=== PATIENT | male | born 1945 | race Caucasian/White ===

== ENCOUNTER 2017-06-20 07:24 | Emergency (ER) | payer MEDICARE, MEDICAID, SELFPAY ==
[2017-06-20] VITALS (11 sets, daily range): BP systolic 131–182; BP diastolic 86–116; PULSE 72–97; RESP 15–18; TEMP 36.4; O2SAT 93–98; BMI 20.5
--- NOTE | 2017-06-20 07:39 | EKG12_ITS ---
Test Reason : ETOH Blood Pressure : / mmHG Vent. Rate : 066 BPM Atrial Rate : 066 BPM P-R Int : 190 ms QRS Dur : 078 ms QT Int : 410 ms P-R-T Axes : 050 -25 051 degrees QTc Int : 429 ms Normal sinus rhythm Inferior infarct , age undetermined Abnormal ECG Confirmed by CAROLANN SPRINGER, GRACY ([id number]), department editor KARINE KABA ([id number] on 06/23/2017 3:51:22 PM Referred By: LOLA Confirmed By:GRACY VUONG MD
[2017-06-20 08:13] LABS: Absolute Lymphocyte Count 3.09 X10^3/ul (0.83-4.51); Absolute Neutrophil Count 4.1 X10^3/uL (2.0-7.7); Basophil# 0.08 X10^3/uL; Eosinophil# 0.27 X10^3/uL; Eosinophils% 3.3 % (0-5); Hematocrit 42.3 % (40-54); Hemoglobin 14.6 g/dl (13.0-16.5); Lymphocyte # 3.09 X10^3/ul (4.0); Lymphocyte % 38.1 % (19-41); Mean Corp Hgb Conc 34.5 g/gl (32-36); Mean Corpuscular Hgb 31.7 pg (27.0-32.0); Mean Platelet Vol. 9.8 fl (6.2-12.0); Monocyte# 0.56 X10^3/uL; Monocyte% 6.9 % (0-10); Neutrophil # 4.09 X10^3/uL (2.7-7.7); Neutrophil % 50.5 % (47-70); POSITIVE COUNT NO; POSITIVE DIFFERENTIAL NO; POSITIVE MORPHOLOGY NO; Platelet Count 338 K/mm3 (150-450); RBC Distribution Width CV 14.2 % (11.6-14.6); RBC Distribution Width SD 46.4 fl (35.1-43.9); White Blood Count 8.1 K/mm3 (4.4-11.0)
[2017-06-20 08:26] LABS: Anion Gap 11 (5-15); BUN 3 mg/dL (7-18); BUN/Creat Ratio 3.1 RATIO (10-20); Calcium,Total 8.6 mg/dL (8.5-10.1); Chloride 109 mmol/L (98-107); Creatinine, Serum 0.96 mg/dL (0.70-1.30); EST Glomerular Filtration Rate 81 mL/min (>60); Est Glom Filt Rate - Afr Amer 99 mL/min (>60); Glucose 89 mg/dL (74-106); Potassium 3.2 mmol/L (3.5-5.1); Sodium Level 145 mmol/L (136-145)
[2017-06-20 09:38] LABS: Amphetamine Urine VISTA NEGATIVE (<1000 ng/mL); Barbiturate Urine VISTA NEGATIVE (< 200 ng/mL); Benzodiazepine Urine VISTA NEGATIVE (< 200 ng/mL); Cocaine Urine VISTA NEGATIVE (< 300 ng/mL); Ecstacy Urine VISTA NEGATIVE (< 500 ng/mL); Methadone Urine VISTA NEGATIVE (< 300 ng/mL); PCP Urine VISTA NEGATIVE (< 25 ng/mL); THC Urine VISTA NEGATIVE (< 50 ng/mL); Vista UDS pH Range 6
--- NOTE | 2017-06-20 10:18 | ED.RN ---
CALLED FOR MEAL TRAY
--- NOTE | 2017-06-20 12:35 | ED.RN ---
PT PRESSED CALL LIGHT. THIS RN ENTERED ROOM TO FIND PT SITTING ON FLOOR, INCONTINENT OF STOOL. PT STATES HE HAD TO GO TO THE BATHROOM, STOOD UP TO WALK AND FELL. DENIES INJURY OR HITTING HEAD. DR. DAVILA AWARE. PT CLEANED, LINENS CHANGED AND BED CLEANED. PT PLACED IN CLEAN GOWN. ASSISTED PT BACK TO BED. VSS.
[2017-06-20] MEDS: clonazePAM 1 MG Tablet PO (13:29)
--- NOTE | 2017-06-20 15:17 | ED.RN ---
[facility] ANSWERING SERVICE CONTACTED
--- NOTE | 2017-06-20 16:08 | ED.VISSUMM ---
- ER Visit Summary Date of Service: 06/20/17 Chief Complaint: [Alcohol intoxication] History of Present Illness: The patient is a 71 M [presents to the emergency department via EMS. Patient had his neighbor call squad for him. Patient states that he been drinking [employer] hard lemonade and thinks he drank about 3 of them. Patient states that he is sick of living. Patient states that he is bored and has no life. Patient also states that his sister last week of brain tumors. When asked if he is suicidal patient states that because of his congregation he does not think that he would kill himself. Patient denies recent illness. Patient has prior documented history of COPD, hypertension, seizure disorder, Warneke's encephalopathy, and alcohol abuse.] Physical Examination: [HEENT-PERRLA, EOMI. Cranial nerves II through XII grossly intact. TMs clear. Mucous membranes moist. No adenopathy. Atraumatic Cardiovascular-regular rate and rhythm without murmur or ectopy Lungs-clear to auscultation, chest wall stable without crepitus or subcu emphysema Abdomen-normoactive bowel sounds, soft, nontender, no rebound or rigidity, no peritoneal signs. Extremities-intact ?4, normal range of motion, normal pulses, atraumatic] Test Results: [CBC with differential obtained was normal. Chemistries unremarkable. Alcohol was 263. Toxicology screen was negative. Troponin was less than 0.02. EKG obtained showed sinus rhythm with a rate of 66 bpm with no acute ST segment changes.] Emergency Department Course and Treatment: [Patient received IV fluids. Patient received a meal tray. Patient received the dose of his Zestoretic and a dose of his Klonopin.] Treatment Plan: [To be evaluated by crisis once alcohol has normalized under 100 mg/dL] Disposition: [Pending evaluation by crisis] Impression: [Alcohol intoxication Hypertension Depression] This note was generated with WebK[employer] dictation software. It may contain incorrect words, spelling, and punctuation that were not noted in review of the chart prior to signing ED Disposition - Plan for ED Patient: Chief Complaint: ETOH Intox Referrals: Care Physician,No Primary [Primary Care Provider] -
--- NOTE | 2017-06-20 16:11 | ED.DCSUM_ITS ---
- ER Visit Summary Date of Service: 06/20/17 Chief Complaint: [Alcohol intoxication] History of Present Illness: The patient is a 71 M [presents to the emergency department via EMS. Patient had his neighbor call squad for him. Patient states that he been drinking [employer] hard lemonade and thinks he drank about 3 of them. Patient states that he is sick of living. Patient states that he is bored and has no life. Patient also states that his sister last week of brain tumors. When asked if he is suicidal patient states that because of his yarsanism he does not think that he would kill himself. Patient denies recent illness. Patient has prior documented history of COPD, hypertension, seizure disorder, Warneke's encephalopathy, and alcohol abuse.] Physical Examination: [HEENT-PERRLA, EOMI. Cranial nerves II through XII grossly intact. TMs clear. Mucous membranes moist. No adenopathy. Atraumatic Cardiovascular-regular rate and rhythm without murmur or ectopy Lungs-clear to auscultation, chest wall stable without crepitus or subcu emphysema Abdomen-normoactive bowel sounds, soft, nontender, no rebound or rigidity, no peritoneal signs. Extremities-intact ?4, normal range of motion, normal pulses, atraumatic] Test Results: [CBC with differential obtained was normal. Chemistries unremarkable. Alcohol was 263. Toxicology screen was negative. Troponin was less than 0.02. EKG obtained showed sinus rhythm with a rate of 66 bpm with no acute ST segment changes.] Emergency Department Course and Treatment: [Patient received IV fluids. Patient received a meal tray. Patient received the dose of his Zestoretic and a dose of his Klonopin.] Treatment Plan: [To be evaluated by crisis once alcohol has normalized under 100 mg/dL] Disposition: [Pending evaluation by crisis] Impression: [Alcohol intoxication Hypertension Depression] This note was generated with [employer] dictation software. It may contain incorrect words, spelling, and punctuation that were not noted in review of the chart prior to signing ED Disposition - Plan for ED Patient: Chief Complaint: ETOH Intox Referrals: Care Physician,No Primary [Primary Care Provider] -
--- NOTE | 2017-06-20 16:12 | ED.DEP ---
ED Disposition - Plan for ED Patient: Chief Complaint: ETOH Intox Instructions: ED Alcohol Intoxication, ED Depression, ED HTN Established Prescriptions: Lisinopril/Hydrochlorothiazide [Zestoretic 10/12.5 Tablet] 1 tab PO DAILY #30 tab Referrals: Care Physician,No Primary [Primary Care Provider] - David Padron MD [STAFF PHYSICIAN] - 3-5 Days
[2017-06-20] MEDS: HYDROCHLOROTHIAZIDE 12.5 MG CAPSULE PO (16:32)
[2017-06-20] MEDS: Lisinopril 10 MG Tablet PO (16:32)
--- NOTE | 2017-06-20 17:09 | ED.RN ---
REVIEWED D/C INSTRUCTIONS, FOLLOW UP CARE, AND S/S THAT WOULD WARRANT A RETURN TO THE ED WITH PT. PT VERBALIZED AN UNDERSTANDING AND DENIES FURTHER QUESTIONS FOR THIS RN. PT SKIN P/W/D, RESP EVEN AND UNLABORED, PT A&O X 3, NO DISTRESS NOTED. CAB CALLED FOR PT. PT AMBULATED OUT OF ED, GAIT STEADY.
== END 2017-06-20 17:14 | disposition home or self-care (01) ==
LOC: ED 08:12
PROVIDERS: Emergency Provider Emergency Medicine
DX: F10.129 Alcohol abuse with intoxication, unspecified (principal); Y90.8 Blood alcohol level of 240 mg/100 ml or more; I10 Essential (primary) hypertension; F32.9 Major depressive disorder, single episode, unspecified; J44.9 Chronic obstructive pulmonary disease, unspecified; G40.909 Epilepsy, unspecified, not intractable, without status epilepticus; Z79.899 Other long term (current) drug therapy
CPT/HCPCS: 80048; 80307; 80320; 84484; 85025; 93005; 99285; G0480

== ENCOUNTER 2017-06-22 18:01 | Inpatient (IN) | payer MEDICARE, MEDICAID, SELFPAY ==
[2017-06-22] VITALS (8 sets, daily range): BP systolic 68–119; BP diastolic 50–76; PULSE 62–85; RESP 13–19; TEMP 36.4–36.6; O2SAT 91–99; BMI 25.0
[2017-06-22 20:02] LABS: Bedside Glucose 160 mg/dL (70-110)
--- NOTE | 2017-06-22 20:06 | ED.RN ---
PATIENTS BLOOD PRESSURE HYPOTENSIVE. DR. BENITO MADE AWARE. VERBAL ORDER GIVEN FOR 1 LITER WIDE OPEN
--- NOTE | 2017-06-22 20:11 | RAD_ITS ---
STUDY: X-RAY CHEST REASON FOR EXAM: Male, 71 years old. Shortness of breath and hypotension TECHNIQUE: Single frontal view of the chest. COMPARISON: February 26, 2017 FINDINGS: Side plate and screws transfix the left clavicle. There is a new right lower lobe infiltrate. The left lung is clear. There is no demonstrated pleural abnormality. Normal size heart. Normal mediastinum and gisselle. Normal visualized pulmonary arteries. Normal visualized aortic arch and descending thoracic aorta. Normal visualized thoracic spine. Normal visualized ribs, clavicles, and shoulders. There is no demonstrated abnormality of the visualized soft tissue structures of the upper abdomen. RAD/Chest 1 View (Portable) IMPRESSION: Right lower lobe infiltrate. Recommend follow-up to resolution. Electronically Signed: Daniel Santos MD at 20:57 EST , Service support ,
--- NOTE | 2017-06-22 20:11 | EKG12_ITS ---
Test Reason : Blood Pressure : / mmHG Vent. Rate : 062 BPM Atrial Rate : 062 BPM P-R Int : 172 ms QRS Dur : 076 ms QT Int : 442 ms P-R-T Axes : 066 021 053 degrees QTc Int : 448 ms Normal sinus rhythm Normal ECG Confirmed by CAROLANN SPRINGER, GRACY ([id number]), supervising editor trailer KARINE KABA ([id number]) on 06/23/2017 2:26:04 PM Referred By: Confirmed By:GRACY VUONG MD
[2017-06-22] MEDS: 0.9% Normal Saline 1,000 ML IV.SOLN. 1800 ML IV (20:22)
[2017-06-22 20:39] LABS: Absolute Neutrophil Count 4.9 X10^3/uL (2.0-7.7); Basophil# 0.03 X10^3/uL; Basophil% 0.4 % (0-1); Eosinophil# 0.25 X10^3/uL; Eosinophils% 2.9 % (0-5); Hematocrit 39.6 % (40-54); Mean Corp Hgb Conc 32.8 g/gl (32-36); Mean Corpuscular Hgb 31.1 pg (27.0-32.0); Mean Corpuscular Volume 94.7 fL (80-94); Mean Platelet Vol. 9.9 fl (6.2-12.0); Monocyte# 0.95 X10^3/uL; Monocyte% 11.1 % (0-10); Neutrophil # 4.92 X10^3/uL (2.7-7.7); Neutrophil % 57.5 % (47-70); Platelet Count 273 K/mm3 (150-450); RBC Distribution Width CV 14.9 % (11.6-14.6); RBC Distribution Width SD 51.1 fl (35.1-43.9); Red Blood Count 4.18 M/mm3 (4.6-6.2); White Blood Count 8.6 K/mm3 (4.4-11.0)
[2017-06-22 20:40] LABS: POSITIVE COUNT NO; POSITIVE DIFFERENTIAL NO; POSITIVE MORPHOLOGY NO
[2017-06-22 20:43] LABS: International Normalized Ratio 1.1; Prothrombin Time (Protime)PT. 14.4 SECONDS (11.7-14.9)
[2017-06-22 20:44] LABS: Partial Thromboplast Time 26.6 Seconds (24.1-36.2)
[2017-06-22 20:56] LABS: Alcohol, Blood (Medical)-Serum < 3.0 mg/dL
[2017-06-22 21:01] LABS: ALB/GLOB Ratio 1.1 RATIO (0.9-2.4); AST(SGOT) 51 U/L (15-37); Alanine Aminotransfer ALT/SGPT 45 U/L (16-61); Albumin, Serum 3.4 g/dL (3.2-5.0); Alkaline Phosphatase 69 U/L (45-117); Anion Gap 7 (5-15); BUN 8 mg/dL (7-18); BUN/Creat Ratio 5.3 RATIO (10-20); Calcium,Total 9.3 mg/dL (8.5-10.1); Chloride 98 mmol/L (98-107); Creatinine, Serum 1.51 mg/dL (0.70-1.30); EST Glomerular Filtration Rate 49 mL/min (>60); Est Glom Filt Rate - Afr Amer 59 mL/min (>60); Estimated Creatinine Clearance 39.03 ml/min; Globulin 3.1 g/dL (2.2-4.2); Glucose 124 mg/dL (74-106); Protein, Total 6.5 g/dL (6.4-8.2); Sodium Level 140 mmol/L (136-145)
[2017-06-22 21:56] LABS: Bacteria 0 SEEN /hpf (None Seen); Mucous, Urine 0 SEEN /hpf (<or=2+); Red Blood Cells-Urine 0 SEEN /hpf (0-5)
[2017-06-22 22:03] LABS: Color, Urine Yellow (Yellow); Glucose, Dipstick Normal (Normal); Ketone-Dipstick Negative (Negative); Leukocyte Esterase-Dipstick Negative /ul (Negative); Nitrite-Dipstick Negative (Negative); Occult Blood-Urine 25 /ul (Negative); Protein-Dipstick 15 mg/dl (Negative); Specific Gravity, Urine 1.005 (1.002-1.030); Urine Bilirubin Dipstick Negative (Negative); Urine Clarity Clear (Clear); Urine Urobilinogen Normal (Normal)
[2017-06-22 22:24] LABS: White Blood Cells 0-5 SEEN /hpf (0-5)
[2017-06-22 22:25] LABS: Squamous Epithelial Cells - UA 0-5 SEEN /hpf (0-5)
[2017-06-22 22:27] LABS: Amphetamine Urine VISTA NEGATIVE (<1000 ng/mL); Barbiturate Urine VISTA NEGATIVE (< 200 ng/mL); Benzodiazepine Urine VISTA NEGATIVE (< 200 ng/mL); Cocaine Urine VISTA NEGATIVE (< 300 ng/mL); Ecstacy Urine VISTA NEGATIVE (< 500 ng/mL); Methadone Urine VISTA NEGATIVE (< 300 ng/mL); PCP Urine VISTA NEGATIVE (< 25 ng/mL); THC Urine VISTA NEGATIVE (< 50 ng/mL); Vista UDS pH Range 6
--- NOTE | 2017-06-22 23:15 | HP.PCM_ITS ---
Problem List (1) Sepsis Status: Acute Qualifiers: Sepsis type: sepsis due to unspecified organism Qualified Code(s): A41.9 - Sepsis, unspecified organism (2) Pneumonia Status: Acute Qualifiers: Pneumonia type: due to unspecified organism Laterality: right Lung location: lower lobe of lung Qualified Code(s): J18.1 - Lobar pneumonia, unspecified organism (3) Chronic obstructive pulmonary disease (COPD) Status: Chronic Qualifiers: (4) Generalized weakness Status: Chronic (5) Essential hypertension Status: Chronic (6) Wernicke encephalopathy Status: Chronic (7) Alcohol abuse Status: Chronic (8) Seizure disorder Status: Chronic (9) Tobacco abuse Status: Chronic History of Present Illness Date of Admission: 06/22/17 Chief Complaint: confusion, shortness of breath The patient is a 71 year old male patient with a significant past medical history od alcohol abuse and Wernicke's encephalopathy presents to the ER by squad complaining of feeling as though he may have a seizure. The patient is a poor historian and he denies chest pain or nausea presently. He is hypotensive and requires supplemental oxygen to maintain his pulse oxygenation above 90%. The patient is hypotensive and has a lactate of 3.0. Chest X-ray reveals a right lower lobe pneumonia. There is concern that he may have aspirated due to his chronic alcoholism. After receiving a 30cc/KG bolus of normal saline the patients MAP is >65 and he is receiving IV antibiotics. His last alcohol consumption was two [employer] hard lemonades at noon today. Past Medical History Past Medical History (Chronic Problems): Chronic Problems Chronic obstructive pulmonary disease (COPD) (Chronic) Generalized weakness (Chronic) Essential hypertension (Chronic) Wernicke encephalopathy (Chronic) Alcohol abuse (Chronic) Seizure disorder (Chronic) Tobacco abuse (Chronic) Allergies bupropion HCl [From Wellbutrin] Allergy (Verified 06/22/17 18:59) Unknown quetiapine fumarate [From Seroquel] Allergy (Verified 06/22/17 18:59) Unknown trazodone Adverse Reaction (Verified 06/22/17 18:59) Other Home Medications: Ambulatory Orders Medication Instructions Recorded Fluoxetine HCl 40 mg PO DAILY 03/03/17 Pantoprazole Sodium [Protonix] 40 mg PO DAILY 03/03/17 Lisinopril/Hydrochlorothiazide 1 tablet PO DAILY 03/04/17 [Zestoretic 01/29.5 Tablet] Surgical History: - - Umbilical hernia repair, bowel resection secondary to small bowel obstruction, left shoulder surgery status post trauma, tonsillectomy , ileocecal resection via CT scan evaluation Psychiatric History: Anxiety Smoking Status: Current every day smoker - *Family History Maternal History Items: Cancer, Hypertension Paternal History Items: Cancer, Hypertension Review of Systems Constitutional: Reports: Chills, Malaise, Weakness. Denies: Fever, Weight Change HEENT: Denies: Head Aches, Sinus Congestion, Sinus Drainage Cardiovascular: Denies: Chest Pain, Palpitations Respiratory: Denies: Cough, Shortness of breath at rest, Sputum production Gastrointestinal: Denies: Abdominal Pain, Nausea, Vomiting Genitourinary: Denies: Dysuria Musculoskeletal: Denies: Joint Pain, Joint Tenderness Skin: Denies: Rash, Wounds Neurological: Denies: Numbness, Tingling, Focal weakness Psychiatric: Reports: Anxiety. Denies: Depression, Homicidal Ideations, Suicidal Ideations Hematologic/ Lymphatic: Denies: Easy Bruising, Easy Bleeding VTE Information - Inpt Only VTE Present on Admission: No VTE Mechan Device Prophylaxis: None VTE Pharm Prophylaxis ordered?: Yes Patient Problems: Active and Suspected Problems Sepsis (Acute) Pneumonia (Acute) - Physical Exam General: Alert, Cooperative, Confused HEENT: Atraumatic, PERRLA, EOMI, Normocephalic Neck: Supple Lungs: Clear to auscultation, Normal air movement, No rhonchi, No wheeze, No rales Cardiovascular: Regular rate, Regular Rhythm, Normal S1, Normal S2, No murmurs Abdomen: Bowel Sounds Present, Soft, Non Tender Extremities: No edema, Capillary Refill Less than 3 Seconds Skin: No rashes, No breakdown Musculoskeletal: No Tenderness to Palpation of Joints or Extremities Neurological: Neuro grossly intact Psych/Mental Status: Normal Affect, Appropriate, Anxious Vital Signs Temp Pulse Resp BP Pulse Ox 97.5 F L 77 18 108/69 97 06/22/17 21:47 06/22/17 23:00 06/22/17 23:00 06/22/17 23:00 06/22/17 23:00 Oxygen Flow Rate (L/min) 2 Oxygen Delivery Method Nasal Cannula Weight: 150 lb Body Mass Index (BMI) 25.0 Finger Stick Blood Glucose 160 Laboratory Tests Past 24 Hrs 06/22/17 06/22/17 06/22/17 20:00 20:00 20:00 WBC 8.6 RBC 4.18 L Hgb 13.0 Hct 39.6 L MCV 94.7 H MCH 31.1 MCHC 32.8 RDW 14.9 H RDW Differential 51.1 H Plt Count 273 MPV 9.9 Immature Gran % (Auto) 0.100 Neut % (Auto) 57.5 Lymph % (Auto) 28.0 Schley % (Auto) 11.1 H Eos % (Auto) 2.9 Baso % (Auto) 0.4 Absolute Neuts (auto) 4.9 Absolute Lymphs (auto) 2.40 Total Counted Not Reportable PT 14.4 INR 1.1 APTT 26.6 Sodium 140 Potassium 4.0 Chloride 98 Carbon Dioxide 35.0 H Anion Gap 7 BUN 8 Creatinine 1.51 H Estim Creat Clear Calc 39.03 Est GFR (MDRD) Af Amer 59 L Est GFR (MDRD) Non-Af 49 L BUN/Creatinine Ratio 5.3 L Glucose 124 H Lactic Acid Calcium 9.3 Total Bilirubin 0.70 AST 51 H ALT 45 Alkaline Phosphatase 69 Troponin I < 0.02 Total Protein 6.5 Albumin 3.4 Globulin 3.1 Albumin/Globulin Ratio 1.1 Urine Color Urine Clarity Urine pH Ur Specific R[place]y Urine Protein Urine Glucose (UA) Urine Ketones Urine Occult Blood Urine Nitrite Urine Bilirubin Urine Urobilinogen Ur Leukocyte Esterase Urine RBC Urine WBC Ur Squamous Epith Cells Urine Bacteria Urine Mucus Urine Opiates Screen Urine Methadone Screen Ur Barbiturates Screen Ur Phencyclidine Scrn Ur Amphetamines Screen U Methamphetamin-MDMA U Benzodiazepines Scrn Urine Cocaine Screen U Cannabinoids Screen Ur Drug Screen Comment Ethyl Alcohol 06/22/17 06/22/17 06/22/17 20:00 20:00 21:50 WBC RBC Hgb Hct MCV MCH MCHC RDW RDW Differential Plt Count MPV Immature Gran % (Auto) Neut % (Auto) Lymph % (Auto) Schley % (Auto) Eos % (Auto) Baso % (Auto) Absolute Neuts (auto) Absolute Lymphs (auto) Total Counted PT INR APTT Sodium Potassium Chloride Carbon Dioxide Anion Gap BUN Creatinine Estim Creat Clear Calc Est GFR (MDRD) Af Amer Est GFR (MDRD) Non-Af BUN/Creatinine Ratio Glucose Lactic Acid 3.0 H Calcium Total Bilirubin AST ALT Alkaline Phosphatase Troponin I Total Protein Albumin Globulin Albumin/Globulin Ratio Urine Color Urine Clarity Urine pH Ur Specific R[place]y Urine Protein Urine Glucose (UA) Urine Ketones Urine Occult Blood Urine Nitrite Urine Bilirubin Urine Urobilinogen Ur Leukocyte Esterase Urine RBC Urine WBC Ur Squamous Epith Cells Urine Bacteria Urine Mucus Urine Opiates Screen POSITIVE H Urine Methadone Screen NEGATIVE Ur Barbiturates Screen NEGATIVE Ur Phencyclidine Scrn NEGATIVE Ur Amphetamines Screen NEGATIVE U Methamphetamin-MDMA NEGATIVE U Benzodiazepines Scrn NEGATIVE Urine Cocaine Screen NEGATIVE U Cannabinoids Screen NEGATIVE Ur Drug Screen Comment Ethyl Alcohol < 3.0 06/22/17 21:50 WBC RBC Hgb Hct MCV MCH MCHC RDW RDW Differential Plt Count MPV Immature Gran % (Auto) Neut % (Auto) Lymph % (Auto) Schley % (Auto) Eos % (Auto) Baso % (Auto) Absolute Neuts (auto) Absolute Lymphs (auto) Total Counted PT INR APTT Sodium Potassium Chloride Carbon Dioxide Anion Gap BUN Creatinine Estim Creat Clear Calc Est GFR (MDRD) Af Amer Est GFR (MDRD) Non-Af BUN/Creatinine Ratio Glucose Lactic Acid Calcium Total Bilirubin AST ALT Alkaline Phosphatase Troponin I Total Protein Albumin Globulin Albumin/Globulin Ratio Urine Color Yellow Urine Clarity Clear Urine pH 7.0 Ur Specific R[place]y 1.005 Urine Protein 15 H Urine Glucose (UA) Normal Urine Ketones Negative Urine Occult Blood 25 H Urine Nitrite Negative Urine Bilirubin Negative Urine Urobilinogen Normal Ur Leukocyte Esterase Negative Urine RBC 0 SEEN Urine WBC 0-5 SEEN Ur Squamous Epith Cells 0-5 SEEN Urine Bacteria 0 SEEN Urine Mucus 0 SEEN Urine Opiates Screen Urine Methadone Screen Ur Barbiturates Screen Ur Phencyclidine Scrn Ur Amphetamines Screen U Methamphetamin-MDMA U Benzodiazepines Scrn Urine Cocaine Screen U Cannabinoids Screen Ur Drug Screen Comment Ethyl Alcohol POC Glucose 06/22/17 19:55 POC Glucose 160 H Assessment/Plan Active and Suspected Problems Sepsis (Acute) Pneumonia (Acute) Chronic Problems Chronic obstructive pulmonary disease (COPD) (Chronic) Essential hypertension (Chronic) Wernicke encephalopathy (Chronic) Alcohol abuse (Chronic) Seizure disorder (Chronic) Tobacco abuse (Chronic) Plan - admit to progressive care unit - continue levaquin and zosyn initiated in ER - CBC, BMP in am, repeat lactate per protocol - IV normal saline at 125cc/hour - CIWA protocol for alcohol cessation/withdrawal - LMWH for DVT prophylaxis - hold antihypertensive medications - LMWH for DVT prophylaxis Code Visit Inpatient E&M: 39220 Init Hosp L3
--- NOTE | 2017-06-22 23:18 | ED.VISSUMM ---
- ER Visit Summary Date of Service: 06/22/17 Chief Complaint: Anxiety History of Present Illness: The patient is a [address] Sorenson. Patient is a very poor informant. When I entered the room he is lethargic and his only complaint is that he is short of breath. I am unable to obtain an accurate history. Physical Examination: Vitals: 98.6, 101/76, 84, 14, 91% on room air which is not hypoxic. General: Well-developed, but cachectic. Head: Normocephalic atraumatic. Neck: Supple, no lymphadenopathy. No JVD. Nontender. Cardiovascular: Regular rate and rhythm. No murmurs. Respiratory: No respiratory distress. Clear to auscultation bilaterally. Abdominal: Soft, nontender, nondistended, normal bowel sounds. No guarding, rebound, or peritoneal signs. Back: Nontender. Extremities: Nontender, no edema. Skin: Normal color, no rash. Neurologic: Large neck. Arouses to voice. Moves all extremities well. Psych: Normal affect. Test Results: Chest x-ray shows a right lower lobe infiltrate. EKG is sinus 6-62 with no acute changes. Troponin is negative. Urinalysis is negative. LFTs marked for an AST of 51. Chem-7 marked for CO2 of 35, glucose 124, creatinine 1.51. CBC is marked for monocytes of 11. Blood alcohol level was negative. Tox screen shows opiates. Lactic acid is 3.0. Emergency Department Course and Treatment: Patient with a yeast given a 30 cc/kg bolus of normal saline in the emergency department. His sensorium has improved greatly. He is now awake, alert, and conversational. Due to his history of alcoholism he was given Zosyn rather than Rocephin IV. This is because of the potential for aspiration. He was also given Levaquin IV. Treatment Plan: The patient was discussed with Dr. Zamarripa. He will be admitted to the hospital for further evaluation and treatment. Disposition: Admitted in serious condition. Impression: 1. Septic shock. 2. Pneumonia, community-acquired. 3. Alcoholism. 4. Critical care time 30 minutes. This note was generated with blogTVation software. It may contain incorrect words, spelling, and punctuation that were not noted in review of the chart prior to signing ED Disposition - Plan for ED Patient: Chief Complaint: ETOH Intox Referrals: Care Physician,No Primary [Primary Care Provider] -
--- NOTE | 2017-06-22 23:21 | ED.DCSUM_ITS ---
- ER Visit Summary Date of Service: 06/22/17 Chief Complaint: Anxiety History of Present Illness: The patient is a [address] Sorenson. Patient is a very poor informant. When I entered the room he is lethargic and his only complaint is that he is short of breath. I am unable to obtain an accurate history. Physical Examination: Vitals: 98.6, 101/76, 84, 14, 91% on room air which is not hypoxic. General: Well-developed, but cachectic. Head: Normocephalic atraumatic. Neck: Supple, no lymphadenopathy. No JVD. Nontender. Cardiovascular: Regular rate and rhythm. No murmurs. Respiratory: No respiratory distress. Clear to auscultation bilaterally. Abdominal: Soft, nontender, nondistended, normal bowel sounds. No guarding, rebound, or peritoneal signs. Back: Nontender. Extremities: Nontender, no edema. Skin: Normal color, no rash. Neurologic: Large neck. Arouses to voice. Moves all extremities well. Psych: Normal affect. Test Results: Chest x-ray shows a right lower lobe infiltrate. EKG is sinus 6- 62 with no acute changes. Troponin is negative. Urinalysis is negative. LFTs marked for an AST of 51. Chem-7 marked for CO2 of 35, glucose 124, creatinine 1.51. CBC is marked for monocytes of 11. Blood alcohol level was negative. Tox screen shows opiates. Lactic acid is 3.0. Emergency Department Course and Treatment: Patient with a yeast given a 30 cc/ kg bolus of normal saline in the emergency department. His sensorium has improved greatly. He is now awake, alert, and conversational. Due to his history of alcoholism he was given Zosyn rather than Rocephin IV. This is because of the potential for aspiration. He was also given Levaquin IV. Treatment Plan: The patient was discussed with Dr. Zamarripa. He will be admitted to the hospital for further evaluation and treatment. Disposition: Admitted in serious condition. Impression: 1. Septic shock. 2. Pneumonia, community-acquired. 3. Alcoholism. 4. Critical care time 30 minutes. This note was generated with [employer] software. It may contain incorrect words, spelling, and punctuation that were not noted in review of the chart prior to signing ED Disposition - Plan for ED Patient: Chief Complaint: ETOH Intox Referrals: Care Physician,No Primary [Primary Care Provider] -
[2017-06-23] VITALS (14 sets, daily range): BP systolic 134–170; BP diastolic 79–94; PULSE 65–96; RESP 16; TEMP 36.5–37.2; O2SAT 92–95; BMI 20.3
[2017-06-23 00:26] LABS: Reflex Lactate? Y
[2017-06-23] MEDS: 0.9% Normal Saline 1,000 ML 125 ML IV ×3 (00:42→16:11)
[2017-06-23 01:28] LABS: Lactic Acid 1.6 mmol/L (0.4-2.0)
[2017-06-23] MEDS: LORazepam 1 MG Tablet 2 MG PO (02:47)
[2017-06-23 06:03] LABS: Hematocrit 36.7 % (40-54); Mean Corp Hgb Conc 32.7 g/gl (32-36); Mean Corpuscular Hgb 31.3 pg (27.0-32.0); Mean Corpuscular Volume 95.6 fL (80-94); Mean Platelet Vol. 9.9 fl (6.2-12.0); Platelet Count 235 K/mm3 (150-450); RBC Distribution Width CV 14.6 % (11.6-14.6); RBC Distribution Width SD 49.4 fl (35.1-43.9); Red Blood Count 3.84 M/mm3 (4.6-6.2); White Blood Count 9.2 K/mm3 (4.4-11.0)
[2017-06-23 06:07] LABS: Scan Indicated on CBC? Y/N NO
[2017-06-23] MEDS: Piperacil/Tazobactam 3.375 GM/50 ML ML IV ×3 (06:23→22:27)
[2017-06-23 06:28] LABS: Anion Gap 8 (5-15); BUN 12 mg/dL (7-18); BUN/Creat Ratio 9.8 RATIO (10-20); Calcium,Total 8.5 mg/dL (8.5-10.1); Chloride 105 mmol/L (98-107); Creatinine, Serum 1.22 mg/dL (0.70-1.30); EST Glomerular Filtration Rate 62 mL/min (>60); Est Glom Filt Rate - Afr Amer 75 mL/min (>60); Estimated Creatinine Clearance 46.27 ml/min; Glucose 101 mg/dL (74-106); Potassium 3.5 mmol/L (3.5-5.1); Sodium Level 143 mmol/L (136-145)
[2017-06-23] MEDS: Folic Acid 1 MG Tablet PO (10:23)
[2017-06-23] MEDS: Thiamine Hydrochloride 100 MG Tablet PO ×2 (10:23→16:12)
[2017-06-23] MEDS: FLUoxetine 20 MG Capsule 40 MG PO (10:23)
[2017-06-23] MEDS: Enoxaparin 40 MG/0.4 ML Syringe SC (10:23)
[2017-06-23] MEDS: Pantoprazole Sodium 40 MG Tablet PO (10:23)
--- NOTE | 2017-06-23 10:30 | PCM.PN.HOSP ---
Patient Problems: Active and Suspected Problems Sepsis (Acute) Pneumonia (Acute) Subjective: CC: Follow-up on acute mental status changes and pneumonia. This is a 71-year-old male who presented with acute encephalopathy and hypoxia and was found to have pneumonia, he has improved with antibiotic therapy. He reports no fever , chills or purulent cough today. Vitals/I&O's: Vital Signs Temp Pulse Resp BP Pulse Ox 97.8 F 68 16 148/84 H 93 06/23/17 09:55 06/23/17 09:55 06/23/17 09:55 06/23/17 09:55 06/23/17 09:55 Oxygen Delivery Method Room Air Weight: 58.9 kg Body Mass Index (BMI) 20.3 Intake and Output for Last 24 Hours 06/21/17 06/22/17 06/23/17 23:59 23:59 23:59 Intake Total 1048 / 1048 Output Total 250 / 250 Balance 798 / 798 General: Alert, Oriented x3 HEENT: Atraumatic Oral: Moist Mucosa Neck: Supple, No JVD Lungs: Clear to auscultation, No rales Cardiovascular: Regular rate, Normal S1, No murmurs Abdomen: Bowel Sounds Present, Soft, Non Tender Extremities: No edema Laboratory Results 06/23/17 00:51: Lactic Acid 1.6 06/23/17 05:50: WBC 9.2, RBC 3.84 L, Hgb 12.0 L, Hct 36.7 L, MCV 95.6 H, MCH 31.3, MCHC 32.7, RDW 14.6, RDW Differential 49.4 H, Plt Count 235, MPV 9.9 06/23/17 05:50: Sodium 143, Potassium 3.5, Chloride 105, Carbon Dioxide 30.0, Anion Gap 8, BUN 12, Creatinine 1.22, Estim Creat Clear Calc 46.27, Est GFR (MDRD) Af Amer 75, Est GFR (MDRD) Non-Af 62, BUN/Creatinine Ratio 9.8 L, Glucose 101, Calcium 8.5 Current Medications Enoxaparin Sodium (Lovenox) 40 mg SC DAILY@1000 [facility] Last Admin: 06/23/17 10:23 Dose: 40 mg Fluoxetine HCl (Prozac) 40 mg PO DAILY [facility] Last Admin: 06/23/17 10:23 Dose: 40 mg Folic Acid (Folic Acid) 1 mg PO DAILY@0800 [facility] Stop: 06/25/17 08:01 Last Admin: 06/23/17 10:23 Dose: 1 mg Sodium Chloride () 1,000 mls @ 125 mls/hr IV .Q8H [facility] Last Admin: 06/23/17 07:59 Dose: 125 mls/hr Levofloxacin (Levaquin) 750 mg in 150 mls @ 100 mls/hr IV Q48 [facility] Piperacillin Sod/Tazobactam Sod (Zosyn) 3.375 gm in 50 mls @ 12.5 mls/hr IV Q8 [facility] Last Admin: 06/23/17 06:23 Dose: 12.5 mls/hr Lorazepam (Ativan) 2 mg PO Q2H PRN PRN; Protocol PRN Reason: CIWA score > 8 but <15 Last Admin: 06/23/17 02:47 Dose: 2 mg Lorazepam (Ativan) 2 mg IV Q2H PRN PRN; Protocol PRN Reason: CIWA score > 8 but <15 Lorazepam (Ativan) 2 mg PO UD PRN; Protocol PRN Reason: CIWA score >/=15. Lorazepam (Ativan) 2 mg IV UD PRN; Protocol PRN Reason: CIWA score >/=15. Magnesium Hydroxide (Milk Of Magnesia) 30 ml PO DAILY PRN PRN Reason: Constipation Nutritional Formula (Lactose Free) (Ensure Enlive) 120 ml PO 4X/DAY [facility] Last Admin: 06/23/17 10:26 Dose: 120 ml Pantoprazole Sodium (Protonix) 40 mg PO DAILY [facility] Last Admin: 06/23/17 10:23 Dose: 40 mg Sodium Chloride () 5 - 30 ml IV UD PRN PRN Reason: SALINE FLUSH Thiamine HCl (Vitamin B1) 100 mg PO BIDCM [facility] Stop: 06/25/17 17:01 Last Admin: 06/23/17 10:23 Dose: 100 mg Assessment/Plan Active and Suspected Problems Sepsis (Acute) Pneumonia (Acute) 1. Sepsis due to pneumonia; he remains hemodynamically stable. 2. Acute encephalopathy due to #1 this has improved. 3. Right lobe pneumonia; continue on IV Levaquin and Zosyn for possible aspiration PNA. 4. Alcohol abuse (Chronic); continue on CIWA protocol 5. COPD without acute exacerbation; continue bronchodilators. 6. Seizure disorder by history; he is not on any AEDs 7. Essential hypertension; this is controlled. 8. DVT prophylaxis with Lovenox Code Visit Inpatient E&M: 65267 Subs Hosp L3
[2017-06-23] MEDS: Acetaminophen 325 MG Tablet 650 MG PO ×2 (13:11→22:34)
--- NOTE | 2017-06-23 14:12 | CASEMGMT ---
RAMY CIFUENTES Face to Face with patient for initial transition planning/care coordination assessment. RN ESAU introduced self and role at [facility]. Patient lying in bed, alert and oriented. Patient willing to participate in assessment and is able to answer all questions appropriately. Care providers, pharmacy, and demographics verified. See link attached. Patient wishes to discharge home and would like HHC to follow him. HHC and CCN has been setup in past but patient declines care after setup. Patient states he has no further needs or concerns at this time. CM to follow for discharge planning needs that may arise. Disposition Plan: Patient to discharge home with possible HHC, family support, and follow up plans in place.
--- NOTE | 2017-06-23 14:35 | CASEMGMT ---
Per Cynthia MCCANN CM, they have attempted to set pt up with CCN in the past but pt would not answer phone. Referral made again so that CCN can try and see pt while here and maybe pt will accept assistance. Call to Jaskaran at [facility] and she states she will try and stop to see pt in the am. Sonia MCCANN CM
[2017-06-24] VITALS (8 sets, daily range): BP systolic 148–176; BP diastolic 89–99; PULSE 69–87; RESP 14–16; TEMP 36.8–37.1; O2SAT 94–95
[2017-06-24] MEDS: 0.9% Normal Saline 1,000 ML 125 ML IV ×2 (00:14→08:26)
[2017-06-24] MEDS: Piperacil/Tazobactam 3.375 GM/50 ML ML IV (05:03)
[2017-06-24] MEDS: Folic Acid 1 MG Tablet PO (08:28)
[2017-06-24] MEDS: Thiamine Hydrochloride 100 MG Tablet PO (08:28)
[2017-06-24] MEDS: Acetaminophen 325 MG Tablet 650 MG PO (09:49)
[2017-06-24] MEDS: FLUoxetine 20 MG Capsule 40 MG PO (09:50)
[2017-06-24] MEDS: Enoxaparin 40 MG/0.4 ML Syringe SC (09:50)
[2017-06-24] MEDS: Pantoprazole Sodium 40 MG Tablet PO (09:50)
--- NOTE | 2017-06-24 11:55 | PCM.DC.SUM ---
Discharge Date and Diagnosis Date of Admission: 06/22/17 Date of Discharge: 06/24/17 - Primary Discharge Diagnosis Active and Suspected Problems Sepsis (Acute) Pneumonia (Acute) - Secondary Discharge Diagnosis Chronic Problems Chronic obstructive pulmonary disease (COPD) (Chronic) Generalized weakness (Chronic) Essential hypertension (Chronic) Wernicke encephalopathy (Chronic) Alcohol abuse (Chronic) Seizure disorder (Chronic) Tobacco abuse (Chronic) Hospital Course and Treatment Operations: None Summary of Care Provided: This is a 71-year-old male who presented with acute encephalopathy and hypoxia and was found to have pneumonia, started on broad-spectrum antibiotics and admitted to PCU. The patient improved clinically and was transitioned to oral antibiotics i.e. Omnicef 300 mg twice daily to complete 7-8 days of antibiotic therapy. 1. Sepsis due to pneumonia; has resolved, he remains hemodynamically stable. 2. Acute encephalopathy due to #1 this has improved. 3. Right lobe pneumonia; was treated with IV Levaquin and Zosyn and transitioned to Omnicef at discharge. 4. Alcohol abuse (Chronic); recommended to quit drinking. 5. COPD without acute exacerbation; continue bronchodilators. 6. Seizure disorder by history; this was just one time related to alcohol withdrawal, he is not on any AEDs 7. Essential hypertension; this is controlled Exam at the time of discharge; vital signs were stable. He was alert and oriented to time place and person. He did not appear to be any form of distress. S1 and S2 heard no murmur or gallop Lung exam was clear to auscultation with no adventitious sounds. Abdomen was soft nontender with normal bowel sounds. extremity exam did not reveal any edema, palpable pulses bilaterally. Neurologic exam was grossly intact. Discharge Diet: No Restrictions Home Medications: Medications to take at Discharge Fluoxetine HCl 40 mg PO DAILY 03/03/17 Pantoprazole Sodium [Protonix] 40 mg PO DAILY 03/03/17 Lisinopril/Hydrochlorothiazide [Zestoretic 10/12.5 Tablet] 1 tablet PO DAILY 03/04/17 Cefdinir 300 mg PO BID #10 cap 06/24/17 Following Prescrptions Were Given to Patient: Cefdinir 300 mg PO BID #10 cap Primary Care Physician: Care Physician,No Primary [Primary Care Provider] - Disposition: Home Patient Condition:: Good Meaningful Use Info Meaningful Use Diagnoses (Choose all that apply): None applicable Code Visit Inpatient E&M: 47424 Disch Hosp
--- NOTE | 2017-06-24 11:57 | PCM.DC ---
- Discharge Diagnoses Current Active Problems: Current Active and Chronic Problems Sepsis (Acute) Pneumonia (Acute) You will use the following diet at home:: Regular Discharge Activity: Return to Normal Activity Allergies/Adverse Reactions: Allergies bupropion HCl [From Wellbutrin] Allergy (Verified 06/22/17 18:59) Unknown quetiapine fumarate [From Seroquel] Allergy (Verified 06/22/17 18:59) Unknown trazodone Adverse Reaction (Verified 06/22/17 18:59) Other Medications to take at Discharge Fluoxetine HCl 40 mg PO DAILY 03/03/17 Pantoprazole Sodium [Protonix] 40 mg PO DAILY 03/03/17 Lisinopril/Hydrochlorothiazide [Zestoretic 10/12.5 Tablet] 1 tablet PO DAILY 03/04/17 Cefdinir 300 mg PO BID #10 cap 06/24/17 The following prescriptions were given: Cefdinir 300 mg PO BID #10 cap Primary Care Physician: Care Physician,No Primary [Primary Care Provider] -
--- NOTE | 2017-06-24 14:02 | CASEMGMT ---
This RN CM to room to speak with pt regarding CCN and pt is agreeable at this time and states 'I need something like that to help me keep track of my meds.' Pt given Jaskaran, CCN's cell number, per Jaskaran's request so that pt knows who is calling. Pt placed number in wallet and this RN CM encouraged him to answer when Jaskaran calls, pt voices understanding. SStjim MCCANN CM
--- NOTE | 2017-06-26 10:18 | CCN.REFER ---
PHONE NUMBER CURRENTLY DISCONNECTED. VISIT TO HOME AND NO ANSWER AT DOOR. WILL CONTINUE TO ATTEMPT TO REACH PATIENT. ONUR S MADE AWARE VIA EMAIL. THIS IS [facility]'S THIRD TIME TRYING TO REACH OUT TO PATIENT TO ENTER CCN PROGRAM
== END 2017-06-24 14:18 | disposition home or self-care (01) | DRG 871 ==
LOC: ED 20:12 → ICU 23:23 → PCU 23:35
PROVIDERS: Admitting Provider Family Medicine; Emergency Provider Emergency Medicine; Visit Provider Internal Medicine
DX: A41.9 Sepsis, unspecified organism (principal); J18.9 Pneumonia, unspecified organism; G93.40 Encephalopathy, unspecified; J44.0 Chronic obstructive pulmonary disease with (acute) lower respiratory infection; F17.200 Nicotine dependence, unspecified, uncomplicated; F10.10 Alcohol abuse, uncomplicated; I10 Essential (primary) hypertension; R09.02 Hypoxemia
CPT/HCPCS: 36415; 71045; 80048; 80053; 80307; 80320; 81001; 82962; 83605; 84484; 85025; 85027; 85610; 85730; 87040; 87086; 87088; 87880; 93005; 94762; 99285; J7030; A4216; G0480

== ENCOUNTER 2017-06-29 10:16 | Emergency (ER) | payer MEDICARE, MEDICAID, SELFPAY ==
[2017-06-29 10:18] VITALS: BP 172/96; PULSE 110; RESP 16; TEMP 36.4; O2SAT 98; BMI 19.6
--- NOTE | 2017-06-29 10:22 | RAD_ITS ---
STUDY: X-RAY CHEST REASON FOR EXAM: Male, 71 years old. Follow-up of pneumonia. TECHNIQUE: AP and lateral views of the chest. COMPARISON: June 22, 2017. FINDINGS: Cardiac monitoring leads are present. There is hyperinflation of the lungs consistent with chronic obstructive lung disease (COPD). There is mild prominence of bronchovascular markings particularly at the right lung base. There is improved aeration of right lung base since the previous study. There is no demonstrated pleural abnormality. There is borderline cardiomegaly. Normal mediastinum and gisselle. Normal visualized pulmonary arteries. There is atherosclerotic calcification of the aortic arch with tortuosity. There is demineralization of the osseous structures. There appear to be a compression fractures of multiple thoracic vertebral bodies. Patient has had open reduction internal fixation of a left clavicle fracture with 2 plates and multiple screws. There is no demonstrated abnormality of the visualized soft tissue structures of the upper abdomen. RAD/Chest PA and Lateral IMPRESSION: 1. Improved aeration of the right lung base since the previous study. 2. COPD. 3. Osteoporosis with multiple compression fractures. Electronically Signed: Madeline Padron MD at 11:51 EDT , Service support ,
--- NOTE | 2017-06-29 10:22 | EKG12_ITS ---
Test Reason : Blood Pressure : / mmHG Vent. Rate : 102 BPM Atrial Rate : 138 BPM P-R Int : 180 ms QRS Dur : 080 ms QT Int : 374 ms P-R-T Axes : 056 -47 041 degrees QTc Int : 487 ms Sinus tachycardia Left anterior fascicular block Inferior infarct , age undetermined Abnormal ECG Confirmed by CAROLANN SPRINGER, GRACY ([id number]), visual effects editor KARINE KABA ([id number]) on 07/01/2017 3:18:46 PM Referred By: VICTOR HUGO Confirmed By:GRACY VUONG MD
--- NOTE | 2017-06-29 10:28 | ED.VISSUMM ---
- ER Visit Summary Date of Service: 06/29/17 Chief Complaint: Bilateral hand numbness History of Present Illness: The patient is a 71 M with no primary care physician. He was discharged from the hospital 5 days ago for pneumonia. He had been placed on cefdinir. The patient told the nurse that he has bilateral hand numbness that began today. He is clearly intoxicated and will not speak with me. When I asked him why he came in today he reports you know why I am here. He will not answer any questions. Physical Examination: Vitals: 97.6, 170/96, 110, 16, 98% on room air which is not hypoxic. General: Well-nourished and well-developed. Unkempt Head: Normocephalic atraumatic. Neck: Supple, no lymphadenopathy. No JVD. Nontender. Cardiovascular: Regular rate and rhythm. No murmurs. Respiratory: No respiratory distress. Clear to auscultation bilaterally. Abdominal: Soft, nontender, nondistended, normal bowel sounds. No guarding, rebound, or peritoneal signs. Back: Nontender. Extremities: Nontender, no edema. Skin: Normal color, no rash. Neurologic: Alert and intoxicated. He moves all extremities well. He is not compliant with the neurologic exam.. Psych: Normal affect. Test Results: EKG is sinus tach at 102 with no ischemic changes. CBC is marked for 7 neutrophils of 42 lymphocytes 45. Chem-7 is marked potassium 2.6, BUN of 5, creatinine 1.34. Blood alcohol level is 149. Emergency Department Course and Treatment: Patient was given potassium p.o. He is aggressive and combative. He was given a dose of Geodon IM. Treatment Plan: [] Disposition: [] Impression: [] This note was generated with [employer] dictation software. It may contain incorrect words, spelling, and punctuation that were not noted in review of the chart prior to signing ED Disposition - Plan for ED Patient: Chief Complaint: Numb/Ting Referrals: Care Physician,No Primary [Primary Care Provider] -
[2017-06-29] MEDS: 0.9% Normal Saline 1,000 ML 1000 ML IV (10:39)
[2017-06-29 10:41] LABS: Absolute Lymphocyte Count 4.57 X10^3/ul (0.83-4.51); Absolute Neutrophil Count 4.3 X10^3/uL (2.0-7.7); Basophil# 0.04 X10^3/uL; Basophil% 0.4 % (0-1); Eosinophil# 0.45 X10^3/uL; Eosinophils% 4.4 % (0-5); Lymphocyte # 4.57 X10^3/ul (4.0); Lymphocyte % 44.8 % (19-41); Mean Corp Hgb Conc 34.1 g/gl (32-36); Mean Corpuscular Hgb 31.6 pg (27.0-32.0); Mean Corpuscular Volume 92.6 fL (80-94); Mean Platelet Vol. 9.3 fl (6.2-12.0); Monocyte# 0.87 X10^3/uL; Monocyte% 8.5 % (0-10); Neutrophil # 4.25 X10^3/uL (2.7-7.7); Neutrophil % 41.7 % (47-70); Platelet Count 312 K/mm3 (150-450); RBC Distribution Width CV 15.2 % (11.6-14.6); RBC Distribution Width SD 50.6 fl (35.1-43.9); Red Blood Count 4.75 M/mm3 (4.6-6.2); White Blood Count 10.2 K/mm3 (4.4-11.0)
[2017-06-29 10:43] LABS: POSITIVE COUNT NO; POSITIVE DIFFERENTIAL NO; POSITIVE MORPHOLOGY NO
--- NOTE | 2017-06-29 10:45 | ED.RN ---
THIS NURSE IN THE ROOM SPEAKING WITH THE PT. PT BECAME VERY ANGRY AND YELLING. PT STATES I WANT TO LEAVE. YOU CAN GET OUT OF LONG TERM FAST THAN YOU CAN GET OUT OF THIS FUCKING PLACE. THIS NURSE INFORMED PT HE NEEDS TO WATCH HIS LANGUAGE AND TONE. TREAT THE STAFF WITH KINDNESS AND COOPERATION AND THE STAFF WILL TREAT HIM THE SAME WAY
--- NOTE | 2017-06-29 11:00 | ED.RN ---
POTASSIUM 2.[address] THE LAB. DR GAY AWARE
[2017-06-29 11:01] LABS: Anion Gap 13 (5-15); BUN 5 mg/dL (7-18); BUN/Creat Ratio 3.7 RATIO (10-20); Calcium,Total 9.5 mg/dL (8.5-10.1); Chloride 103 mmol/L (98-107); Creatinine, Serum 1.34 mg/dL (0.70-1.30); EST Glomerular Filtration Rate 56 mL/min (>60); Est Glom Filt Rate - Afr Amer 68 mL/min (>60); Estimated Creatinine Clearance 39.48 ml/min; Glucose 99 mg/dL (74-106); Potassium 2.6 mmol/L (3.5-5.1); Sodium Level 142 mmol/L (136-145)
--- NOTE | 2017-06-29 11:34 | ED.RN ---
PT APOLOGIZED FOR HIS BEHAVIOR. HE IS NOW COOPERATIVE. SAYING PLEASE AND THANK YOU
--- NOTE | 2017-06-29 11:39 | CM.ED ---
Prior documentation notes that [facility] has attempted to reach patient multiple times with no response. Voicemail left with Jaskaran, from [facility], notifying her that the patient is in the ER if she is available to meet with. Per CM assessment on last admission, patient was scheduled to see Dr. Ramos and did not show up to his appointment. Social work referral placed.
--- NOTE | 2017-06-29 12:03 | CM.ED ---
Jaskaran, from [facility], returned call and is not able to come to ED. She asks to provide her phone number to the patient, as she has not been able to reach him. Information provided to the patient.
[2017-06-29 12:34] VITALS: BP 154/98; PULSE 82; RESP 22; O2SAT 97
--- NOTE | 2017-06-29 12:34 | ED.RN ---
THIS NURSE REVIEWED D/C INSTRUCTIONS WITH PT. PT VERBALIZED UNDERSTANDING OF INSTRUCTIONS. IV D/C. IV CATHETER INTACT. PT TOLERATED WELL. PT DENIES FURTHER NEEDS OR QUESTIONS AT THIS TIME.
== END 2017-06-29 12:36 | disposition home or self-care (01) ==
PROVIDERS: Emergency Provider Emergency Medicine
DX: E87.6 Hypokalemia (principal); F10.129 Alcohol abuse with intoxication, unspecified; Y90.6 Blood alcohol level of 120-199 mg/100 ml; E51.2 Wernicke's encephalopathy; Z79.82 Long term (current) use of aspirin
CPT/HCPCS: 71046; 80048; 80320; 83735; 85025; 93005; 96360; 99285; J7030; A4216; G0480; J3486

== ENCOUNTER 2017-11-03 14:27 | Emergency (ER) | payer MEDICARE, MEDICAID, SELFPAY ==
[2017-11-03 14:28] VITALS: BP 178/115; PULSE 104; RESP 25; TEMP 36.7; O2SAT 95; BMI 20.3
[2017-11-03 14:31] VITALS: BP 180/117; PULSE 105; RESP 20; O2SAT 95
[2017-11-03 14:45] VITALS: O2SAT 93
--- NOTE | 2017-11-03 14:57 | ED.RN ---
pt makes vague complaints of wanting to take a whole bottle of pills. when confronted about feeling suicidal pt states ja
[2017-11-03] MEDS: Ipratropium/Albuterol Sulfate 3 ML AMPUL.NEB INHALATION (15:06)
[2017-11-03 15:09] VITALS: PULSE 101; RESP 20
[2017-11-03 15:21] LABS: Absolute Lymphocyte Count 2.92 X10^3/ul (0.83-4.51); Absolute Neutrophil Count 3.7 X10^3/uL (2.0-7.7); Basophil# 0.05 X10^3/uL; Basophil% 0.6 % (0-1); Eosinophil# 0.18 X10^3/uL; Eosinophils% 2.3 % (0-5); Hematocrit 39.8 % (40-54); Hemoglobin 13.6 g/dl (13.0-16.5); Lymphocyte # 2.92 X10^3/ul (4.0); Lymphocyte % 37.7 % (19-41); Mean Corp Hgb Conc 34.2 g/gl (32-36); Mean Corpuscular Volume 87.9 fL (80-94); Monocyte# 0.85 X10^3/uL; Neutrophil # 3.74 X10^3/uL (2.7-7.7); Neutrophil % 48.3 % (47-70); Platelet Count 322 K/mm3 (150-450); RBC Distribution Width CV 15.3 % (11.6-14.6); RBC Distribution Width SD 48.6 fl (35.1-43.9); Red Blood Count 4.53 M/mm3 (4.6-6.2); White Blood Count 7.8 K/mm3 (4.4-11.0)
[2017-11-03 15:24] LABS: POSITIVE COUNT NO; POSITIVE DIFFERENTIAL NO; POSITIVE MORPHOLOGY NO
[2017-11-03 15:27] LABS: Anion Gap 12 (5-15); BUN 11 mg/dL (7-18); BUN/Creat Ratio 10.1 RATIO (10-20); Calcium,Total 8.7 mg/dL (8.5-10.1); Chloride 102 mmol/L (98-107); Creatinine, Serum 1.09 mg/dL (0.70-1.30); EST Glomerular Filtration Rate 71 mL/min (>60); Est Glom Filt Rate - Afr Amer 86 mL/min (>60); Estimated Creatinine Clearance 51.84 ml/min; Glucose 104 mg/dL (74-106); Potassium 3.4 mmol/L (3.5-5.1); Sodium Level 143 mmol/L (136-145)
[2017-11-03] MEDS: hydrOXYzine PAM 25 MG Capsule PO (15:33)
--- NOTE | 2017-11-03 15:34 | ED.DCSUM_ITS ---
- ER Visit Summary Date of Service: 11/03/17 Chief Complaint: Shortness of breath History of Present Illness: The patient is a 71 M who presents with shortness of breath that has been getting worse over the past 2-3 days. Patient states nothing seems to make his breathing worse or better. Patient admits to drinking 3-4 drinks today. Patient denies any cough. Patient denies any fevers or chills. Patient states he has some tightness in his chest when he attempts to take a deep breath. Patient denies any other chest pain. Patient states this feels similar to prior episodes of anxiety. Patient denies any suicidal or homicidal ideations. Physical Examination: Vital signs are stable except for mildly elevated blood pressure 180/117. (Patient is currently out of his blood pressure medication). Patient is afebrile. Patient is in no acute distress. Oral mucosa is pink and moist. Neck is supple. There is no JVD noted. Heart was regular rate and rhythm. Lungs are diminished slightly. There is adequate respiratory effort noted. Abdomen is soft. Bowel sounds are normal. There is no tenderness. Cranial nerves II through XII are intact. There are no focal motor or sensory deficits noted. The remaining physical exam is within normal limits. Test Results: PA and lateral chest x-ray was obtained. There is some hyperinflation but no acute process. This was interpreted by the radiologist and reviewed by myself. CBC and metabolic profile were within normal limits. Emergency Department Course and Treatment: Patient was ordered a DuoNeb aerosol but he refused. Patient was given a dose of Vistaril here. Patient felt better on reevaluation. Patient's blood pressure remained elevated. Patient was given a dose of his lisinopril here. Patient was given prescriptions for lisinopril and Vistaril. Patient was given a referral for primary care follow- up in 7-10 days. Patient understood and was agreeable with the plan. All questions were answered. Disposition: Discharge home Impression: Dyspnea, history of anxiety This note was generated with [employer] dictation software. It may contain incorrect words, spelling, and punctuation that were not noted in review of the chart prior to signing ED Disposition - Plan for ED Patient: Disposition: Home or Assisted Living Chief Complaint: Shortness of Breath Diagnosis: Dyspnea, History of anxiety Instructions: ED Dyspnea Shortness of Breath Prescriptions: hydrOXYzine pamoate capsule [Vistaril] 25 mg PO TID PRN PRN 5 Days #15 cap PRN Reason: Anxiety Lisinopril/Hydrochlorothiazide [Zestoretic 10/12.5 Tablet] 1 tab PO DAILY 30 Days #30 tab Referrals: Care Physician,No Primary [Primary Care Provider] - Roderick Lerma III, MD [STAFF PHYSICIAN] -
--- NOTE | 2017-11-03 15:40 | RAD_ITS ---
STUDY: X-RAY CHEST REASON FOR EXAM: Male, 71 years old. Shortness of breath, anxiety TECHNIQUE: PA and lateral views of the chest. COMPARISON: 06/29/2017 FINDINGS: EKG leads overlie the chest Lungs are hyperexpanded with chronic interstitial changes. No superimposed acute pulmonary process. There is no demonstrated pleural abnormality. Normal size heart. Normal mediastinum and gisselle. Normal visualized pulmonary arteries. There is atherosclerotic calcification of the aortic arch with tortuosity. There are diffuse degenerative changes of the visualized thoracic spine. There is degenerative osteoarthritis of the bilateral shoulders. Surgical hardware in the left clavicle free of complication There is no demonstrated abnormality of the visualized soft tissue structures of the upper abdomen. RAD/Chest PA and Lateral IMPRESSION: Hyperexpanded lungs with chronic interstitial changes, no superimposed acute pulmonary process Electronically Signed: Wilber Murray MD at 15:55 EDT , Service support ,
[2017-11-03 16:41] VITALS: BP 190/115; PULSE 102; RESP 16; O2SAT 98
[2017-11-03 17:09] VITALS: BP 167/114; PULSE 98; RESP 22; O2SAT 95
[2017-11-03] MEDS: Lisinopril 10 MG Tablet PO (17:09)
--- NOTE | 2017-11-04 10:33 | CM.ED ---
ED CALLBACK: Follow-up call placed to patient. No answer and no voicemail option.
== END 2017-11-03 17:18 | disposition home or self-care (01) ==
PROVIDERS: Emergency Provider Emergency Medicine
DX: R06.00 Dyspnea, unspecified (principal); F41.9 Anxiety disorder, unspecified; Z72.0 Tobacco use
CPT/HCPCS: 71046; 80048; 85025; 94640; 99285

== ENCOUNTER 2018-02-02 17:53 | Observation (INO) | payer MEDICARE, MEDICAID, SELFPAY ==
[2018-02-02] VITALS (8 sets, daily range): BP systolic 77–147; BP diastolic 57–90; PULSE 61–78; RESP 12–22; TEMP 36.5; O2SAT 96–99; BMI 23.7
--- NOTE | 2018-02-02 19:04 | CT_ITS ---
STUDY: CT BRAIN WITHOUT CONTRAST REASON FOR EXAM: Male, 72 years old. Dizziness RADIATION DOSAGE (If Supplied By Facility): CTDIvol = ( 44.99 ) mGy, DLP = ( 796.11 ) mGycm TECHNIQUE: Transaxial CT imaging of the brain was performed without administration of intravenous contrast material. Individualized dose optimization techniques were used for this CT. COMPARISON: January 17, 2017 FINDINGS: Normal soft tissue structures. Normal calvarium. There is mild cerebral atrophy with widening of the extra-axial spaces and ventricular dilatation. There are areas of decreased attenuation within the white matter tracts of the supratentorial brain, consistent with microvascular disease changes. Normal basal ganglia and thalami. Normal brainstem. Normal cerebellum. There is no intracranial hemorrhage. There are no findings of an acute ischemic infarction. Normal visualized paranasal sinuses. CT/Brain/Head without Contrast IMPRESSION: Chronic involutional changes of the brain. Small vessel ischemia. Electronically Signed: Melly Nguyen MD at 19:39 EDT Tel , Service support ,
--- NOTE | 2018-02-02 19:04 | EKG12_ITS ---
Test Reason : SYNCOPE Blood Pressure : / mmHG Vent. Rate : 067 BPM Atrial Rate : 067 BPM P-R Int : 204 ms QRS Dur : 078 ms QT Int : 408 ms P-R-T Axes : 063 000 031 degrees QTc Int : 431 ms Normal sinus rhythm Normal ECG Confirmed by GRACY VUONG MD ([id number]), editor index KARINE KABA ([id number]) on 02/04/2018 9:58:55 AM Referred By: Confirmed By:GRACY VUONG MD
[2018-02-02] MEDS: 0.9% Normal Saline 1,000 ML 1000 ML IV (19:08)
--- NOTE | 2018-02-02 19:08 | ED.VISSUMM ---
- ER Visit Summary Date of Service: 02/02/18 Chief Complaint: Dizziness History of Present Illness: The patient is a 72 M presenting with dizziness. He denies syncope. He states he has been dizzy for the past several days. He states he has fallen several times over the last 3 days. He admits to alcohol use earlier today. He denies chest pain or shortness of breath. Dizziness is worse with standing. He has a history of anxiety and depression. Denies other medical problems. He denies fever. He states he has had urinary frequency. Denies other complaints. Physical Examination: Vitals are stable. Patient is afebrile. Alert no acute distress. HEENT exam is unremarkable. Neck is nontender Lungs are clear and equal bilaterally. Heart is regular rate and rhythm. Abdomen is soft nontender nondistended. Extremities are unremarkable. Skin is warm and dry. No focal neurologic deficit. Remainder of exam is unremarkable. Emergency Department Course and Treatment: Patient is given IV fluids. EKG is sinus rate is 67 with no acute ischemic changes. CBC shows a white count of 14.2, hemoglobin 11.5. Chemistries show potassium 3.0, glucose 152, creatinine 1.47. Troponin is negative. Alcohol negative. Urinalysis unremarkable. He was given potassium oral replacement. Chest x-ray shows no acute process. CT head shows chronic changes. Patient has become intermittently hypotensive but responds well to IV fluids. Due to his frequent falling and near syncope, will discuss with hospitalist for observation. Disposition: Observation Impression: Near syncope, frequent falls This note was generated with [employer] dictation software. It may contain incorrect words, spelling, and punctuation that were not noted in review of the chart prior to signing ED Disposition - Plan for ED Patient: Chief Complaint: Syncope Referrals: Care Physician,No Primary [Primary Care Provider] -
--- NOTE | 2018-02-02 19:10 | RAD_ITS ---
STUDY: X-RAY CHEST REASON FOR EXAM: Male, 72 years old. Syncope. TECHNIQUE: Single frontal view of the chest. COMPARISON: November 03, 2017 FINDINGS: There is no new focal consolidation. Normal size heart. Normal mediastinum and gisselle. Normal visualized pulmonary arteries. Normal visualized aortic arch and descending thoracic aorta. Normal visualized thoracic spine. There are plate and screw fixation devices within the left clavicle. There is no demonstrated abnormality of the visualized soft tissue structures of the upper abdomen. RAD/Chest 1 View (Portable) IMPRESSION: No acute cardiopulmonary process. Electronically Signed: Melly Nguyen MD at 19:27 EDT Tel , Service support ,
[2018-02-02 19:31] LABS: Alcohol, Blood (Medical)-Serum < 3.0 mg/dL
[2018-02-02 19:37] LABS: Anion Gap 9 (5-15); BUN 8 mg/dL (7-18); BUN/Creat Ratio 5.4 RATIO (10-20); Calcium,Total 8.7 mg/dL (8.5-10.1); Chloride 98 mmol/L (98-107); Creatinine, Serum 1.47 mg/dL (0.70-1.30); EST Glomerular Filtration Rate 50 mL/min (>60); Est Glom Filt Rate - Afr Amer 61 mL/min (>60); Estimated Creatinine Clearance 42.47 ml/min; Glucose 152 mg/dL (74-106); Sodium Level 136 mmol/L (136-145)
[2018-02-02 19:39] LABS: Absolute Lymphocyte Count 2.55 X10^3/ul (0.83-4.51); Absolute Neutrophil Count 9.9 X10^3/uL (2.0-7.7); Basophil# 0.03 X10^3/uL; Basophil% 0.2 % (0-1); Eosinophil# 0.41 X10^3/uL; Eosinophils% 2.9 % (0-5); Hematocrit 34.8 % (40-54); Hemoglobin 11.5 g/dl (13.0-16.5); Lymphocyte # 2.55 X10^3/ul (4.0); Mean Corpuscular Hgb 29.9 pg (27.0-32.0); Mean Corpuscular Volume 90.4 fL (80-94); Mean Platelet Vol. 9.6 fl (6.2-12.0); Monocyte# 1.27 X10^3/uL; Neutrophil # 9.87 X10^3/uL (2.7-7.7); Neutrophil % 69.6 % (47-70); Platelet Count 271 K/mm3 (150-450); RBC Distribution Width CV 15.9 % (11.6-14.6); RBC Distribution Width SD 51.2 fl (35.1-43.9); Red Blood Count 3.85 M/mm3 (4.6-6.2); White Blood Count 14.2 K/mm3 (4.4-11.0)
[2018-02-02 19:40] LABS: POSITIVE COUNT NO; POSITIVE DIFFERENTIAL NO; POSITIVE MORPHOLOGY NO
[2018-02-02] MEDS: 0.9% Normal Saline 1,000 ML 999 ML IV (21:17)
--- NOTE | 2018-02-02 21:22 | PCM.HP.STD ---
Problem List (1) Disequilibrium Status: Acute (2) Alcohol abuse Status: Chronic (3) Seizure disorder Status: Chronic (4) Tobacco abuse Status: Chronic (5) Chronic obstructive pulmonary disease (COPD) Status: Chronic Qualifiers: (6) COPD exacerbation Status: Chronic History of Present Illness Date of Admission: 02/02/18 Chief Complaint: Unsteadiness. The patient is a 72 year old M with a significant history of anxiety, and depression who presents with one week history of unsteadiness. Patient reported that he has been close to falling multiple times but he has not actually fallen. He reported that he is on Prozac and Ativan but has run out of this medication. He reports that in the remote past when he ran out of these medication he went into seizures. He reports that he has no PCP to refill this medication for him. He is hoping to get these medications re-filled. History taken from patient is different from the history provided by the ED doctor. Per ED doctor patient has fallen about 6-7 times recently. Also patient had near syncope and lightheadedness Patient is a known alcoholic who has been at our ED multiple times. His alcohol level at the emergency department was unremarkable. Because of his reported multiple falls to the emergency department doctor, CT head was obtained. The CT head was unremarkable. Patient was found to have hypokalemia of 3.0. Upon presentation his systolic blood pressure was in the 70s and his blood pressure responded to IV fluids. Blood pressure dropped again and he was given further IV fluids while at the ED. Past Medical History Past Medical History (Chronic Problems): Chronic Problems Chronic obstructive pulmonary disease (COPD) (Chronic) COPD exacerbation (Chronic) Generalized weakness (Chronic) Essential hypertension (Chronic) Wernicke encephalopathy (Chronic) Alcohol abuse (Chronic) Seizure disorder (Chronic) Tobacco abuse (Chronic) Allergies bupropion HCl [From Wellbutrin] Allergy (Verified 11/03/17 14:32) Unknown quetiapine fumarate [From Seroquel] Allergy (Verified 11/03/17 14:32) Unknown trazodone Adverse Reaction (Verified 11/03/17 14:32) Other Home Medications: Ambulatory Orders Medication Instructions Recorded NK 02/02/18 Surgical History: - - Umbilical hernia repair, bowel resection secondary to small bowel obstruction, left shoulder surgery status post trauma, tonsillectomy, ileocecal resection via CT scan evaluation Psychiatric History: Anxiety Lives: Alone Smoking Status: Current every day smoker Tobacco Use: Cigarettes Alcohol: Heavy - *Family History Maternal History Items: Cancer, Hypertension Paternal History Items: Cancer, Hypertension Review of Systems Constitutional: Denies: Chills, Fever, Weight Change HEENT: Denies: Head Aches, Sinus Congestion, Sinus Drainage Cardiovascular: Denies: Chest Pain, Palpitations Respiratory: Denies: Cough, Shortness of breath at rest, Sputum production Gastrointestinal: Denies: Abdominal Pain, Nausea, Vomiting Genitourinary: Denies: Dysuria Musculoskeletal: Denies: Joint Pain, Joint Tenderness Skin: Denies: Rash, Wounds Neurological: Reports: Balance problems. Denies: Focal weakness, Numbness, Tingling Psychiatric: Reports: Anxiety - chronic, Depression - chronic. Denies: Homicidal Ideations, Suicidal Ideations Hematologic/ Lymphatic: Denies: Easy Bruising, Easy Bleeding VTE Information - Inpt Only VTE Present on Admission: No VTE Mechan Device Prophylaxis: None VTE Pharm Prophylaxis ordered?: Yes Patient Problems: Active and Suspected Problems Disequilibrium (Acute) - Physical Exam General: Alert, Oriented x3, Cooperative HEENT: Atraumatic, PERRLA, EOMI, Normocephalic Neck: Supple, No JVD, Negative Carotid Bruits Lungs: Clear to auscultation, Normal air movement Cardiovascular: Regular rate, No murmurs Abdomen: Bowel Sounds Present, Soft, Non Tender Extremities: No edema, Capillary Refill Less than 3 Seconds Skin: No rashes, No breakdown Musculoskeletal: No Tenderness to Palpation of Joints or Extremities Neurological: Cranial nerves II-XII grossly intact, - - Finger to nose test unremarkable. Psych/Mental Status: Normal Affect, Appropriate Vital Signs Temp Pulse Resp BP Pulse Ox 97.7 F L 71 16 108/77 96 02/02/18 17:54 02/02/18 21:15 02/02/18 21:15 02/02/18 21:15 02/02/18 21:15 Oxygen Delivery Method Room Air Weight: 68.7 kg Body Mass Index (BMI) 23.7 Finger Stick Blood Glucose 152 Laboratory Tests Past 24 Hrs 02/02/18 02/02/18 02/02/18 18:15 18:15 18:15 WBC 14.2 H RBC 3.85 L Hgb 11.5 L Hct 34.8 L MCV 90.4 MCH 29.9 MCHC 33.0 RDW 15.9 H RDW Differential 51.2 H Plt Count 271 MPV 9.6 Immature Gran % (Auto) 0.300 Neut % (Auto) 69.6 Lymph % (Auto) 18.0 L [place]leigh % (Auto) 9.0 Eos % (Auto) 2.9 Baso % (Auto) 0.2 Absolute Neuts (auto) 9.9 H Absolute Lymphs (auto) 2.55 Total Counted Not Reportable Sodium 136 Potassium 3.0 L Chloride 98 Carbon Dioxide 29.0 Anion Gap 9 BUN 8 Creatinine 1.47 H Estim Creat Clear Calc 42.47 Est GFR (MDRD) Af Amer 61 Est GFR (MDRD) Non-Af 50 L BUN/Creatinine Ratio 5.4 L Glucose 152 H Calcium 8.7 Troponin I < 0.015 Ethyl Alcohol < 3.0 Assessment/Plan All Active Problems Sepsis (Resolved) Pneumonia (Resolved) Disequilibrium (Acute) Cholelithiasis (Resolved) Decreased appetite (Resolved) The patient is a 72 year old M with a significant history of alcoholism; anxiety, and depression who presents with one week history of unsteadiness; reported near syncope. Disequilibrium; falls and Near Syncope This could be secondary to alcoholic neuropathy; vitamin deficiency; orthostatic hypotension; cardiac dysrhythmia; debility or other. Orthostatic blood pressure ordered. Received normal saline IV bolus at emergency department. Lactated Ringer's with potassium chloride 40 mEq infusion ordered. PT and OT to work with patient on strengthening and balance. Echocardiogram ordered. Telemetry monitoring. Vitamin B12 ordered. Vitamin D level ordered. ANASTACIO BUN/creatinine is less than 20. Likely prerenal form from poor intake but can not rule out ATN as BUN/creatinine is less than 20. Urine sodium; and urine creatinine ordered. His baseline creatinine is around 1. IV hydration as above. Trend BMP. Leukocytosis Neutrophilic leukocytosis with unclear etiology. Likely reactive. Trend CBC. Hypotension Likely due to hypovolemia from poor intake. Patient has responded to IV fluids. Continue IV fluid hydration. Trend blood pressures. Alcohol dependence Patient placed on CIWA protocol with thiamine, folic acid, multivitamins and Ativan. Counselled. Hypokalemia Likely secondary to alcoholism. Magnesium level 1.5; replaced. Trend BMP. Hypomagnesia Replaced as above. History of seizures Seizure precautions ordered. Tobacco abuse Counseled Declined nicotine patch. DVT prophylaxis Subcutaneous heparin. Code Visit OBSV E&M: 08471 Initial observation care L3
[2018-02-02 22:42] LABS: Bacteria 0 SEEN /hpf (None Seen); Mucous, Urine 0 SEEN /hpf (<or=2+); Red Blood Cells-Urine 0 SEEN /hpf (0-5)
[2018-02-02 22:47] LABS: Color, Urine Yellow (Yellow); Glucose, Dipstick Normal (Normal); Ketone-Dipstick Negative (Negative); Leukocyte Esterase-Dipstick 100 /ul (Negative); Nitrite-Dipstick Negative (Negative); Occult Blood-Urine Negative /ul (Negative); Protein-Dipstick Negative (Negative); Urine Bilirubin Dipstick Negative (Negative); Urine Clarity Clear (Clear); Urine Urobilinogen Normal (Normal); Urine pH 6.5 (5.0 - 8.0)
[2018-02-02 22:53] LABS: Squamous Epithelial Cells - UA 0-5 SEEN /hpf (0-5); Transitional Epithelial - Ur 0-5 SEEN /hpf (0-5)
[2018-02-02 22:54] LABS: White Blood Cells 0-5 SEEN /hpf (0-5)
[2018-02-03] VITALS (11 sets, daily range): BP systolic 142–175; BP diastolic 83–108; PULSE 62–101; RESP 16–24; TEMP 36.4–37.1; O2SAT 93–98; BMI 23.0
[2018-02-03 00:16] LABS: Magnesium 1.5 mg/dL (1.6-2.6)
--- NOTE | 2018-02-03 00:25 | ECHOD_ITS ---
Reason For Study: Syncope/Near Syncope Procedure This was a 2D Doppler, Color Flow transthoracic echocardiogram. Exam performed portable in patient room. Left Ventricle Normal LV size. Left ventricular systolic function is normal. The estimated ejection fraction is 65 %. Stage 1 diastolic dysfunction. No regional wall motion abnormalities noted. Right Ventricle Normal RV size. Normal systolic function. Atria Normal left atrium. Normal right atrium. Mitral Valve Normal mitral valve. Tricuspid Valve Normal tricuspid valve. Mild (1+) tricuspid valve insufficiency. Pulmonary artery systolic pressure is 38 mmHg. Aortic Valve Normal aortic valve. Pulmonic Valve Normal pulmonic valve. Great Vessels Normal aortic root. The pulmonary artery is normal size. Normal inferior vena cava. Pericardium/Pleural No pericardial effusion. MMode/2D Measurements & Calculations LVIDd: 4.1 cm IVSd: 1.2 cm Ao root diam: 3.4 cm LVIDs: 2.3 cm LVPWd: 1.0 cm RVDd: 3.6 cm FS: 44.9 % LAV(MOD-bp): 36.1 ml LVAd ap4: 17.5 cm2 SV(MOD-sp4): 26.0 ml LAV(MOD-bp) Indexed: 20.4 ml/m2 EDV(MOD-sp4): 41.0 ml LAV(MOD-sp2): 21.6 ml EDV(sp4-el): 41.1 ml LAV(MOD-sp4): 37.0 ml LVAs ap4: 9.1 cm2 ESV(MOD-sp4): 15.0 ml ESV(sp4-el): 14.6 ml EF(MOD-sp4): 63.4 % EF(sp4-el): 64.5 % SV(sp4-el): 26.5 ml LA A4 area: 16.5 cm2 RA A4 area: 14.7 cm2 Doppler Measurements & Calculations MV E max rober: 83.8 cm/sec Lat Peak E' Rober: 9.7 cm/sec Med Peak E' Rober: 7.2 cm/sec MV A max rober: 122.7 cm/sec E/E' lat: 8.7 E/E' med: 11.7 MV E/A: 0.68 Ao V2 max: 175.5 cm/sec LV V1 max: 142.6 cm/sec PA V2 max: 126.2 cm/sec Ao max P.3 mmHg LV V1 max P.1 mmHg Ao V2 mean: 138.6 cm/sec Ao mean P.2 mmHg Ao V2 VTI: 32.1 cm TR max rober: 291.3 cm/sec TR max P.0 mmHg Interpretation Summary Normal LV size. Left ventricular systolic function is normal. The estimated ejection fraction is 65 %. Stage 1 diastolic dysfunction. Mild (1+) tricuspid valve insufficiency. Ordering Physician: Soham Puentes Performed By: Devi Wu, JAMESON, RVT
[2018-02-03 00:55] LABS: Vitamin B12 212 pg/mL (211-911)
[2018-02-03] MEDS: 0.9% NaCl Peripheral Flush Adult/Peds IV (01:13)
[2018-02-03] MEDS: LORazepam 2 MG/ML Syringe IV (01:13)
[2018-02-03] MEDS: Heparin Injection (Vial) 5,000 UNIT/ML VIAL 5000 UNIT SC (05:37)
[2018-02-03 05:52] LABS: Hematocrit 32.1 % (40-54); Hemoglobin 10.5 g/dl (13.0-16.5); Mean Corp Hgb Conc 32.7 g/gl (32-36); Mean Corpuscular Hgb 30.3 pg (27.0-32.0); Mean Corpuscular Volume 92.8 fL (80-94); Platelet Count 231 K/mm3 (150-450); RBC Distribution Width CV 15.9 % (11.6-14.6); RBC Distribution Width SD 50.8 fl (35.1-43.9); Red Blood Count 3.46 M/mm3 (4.6-6.2); White Blood Count 9.9 K/mm3 (4.4-11.0)
[2018-02-03 06:05] LABS: Anion Gap 8 (5-15); BUN 9 mg/dL (7-18); BUN/Creat Ratio 7.9 RATIO (10-20); Calcium,Total 8.5 mg/dL (8.5-10.1); Chloride 110 mmol/L (98-107); Creatinine, Serum 1.14 mg/dL (0.70-1.30); EST Glomerular Filtration Rate 67 mL/min (>60); Est Glom Filt Rate - Afr Amer 81 mL/min (>60); Estimated Creatinine Clearance 54.76 ml/min; Glucose 81 mg/dL (74-106); Potassium 4.3 mmol/L (3.5-5.1); Sodium Level 142 mmol/L (136-145)
[2018-02-03 06:06] LABS: Vitamin D,25 Hydroxy 20.1 ng/mL (29.95-100.01)
[2018-02-03 06:16] LABS: Scan Indicated on CBC? Y/N NO
[2018-02-03 09:39] LABS: Urine Sodium 99 mmol/L (Not Establ.)
[2018-02-03] MEDS: LORazepam 1 MG Tablet 2 MG PO (09:45)
[2018-02-03] MEDS: Multivitamins,Ther W-Minerals Tablet 1 TABLET PO (09:48)
[2018-02-03] MEDS: Folic Acid 1 MG Tablet PO (09:48)
[2018-02-03] MEDS: Thiamine Hydrochloride 100 MG Tablet PO (09:52)
--- NOTE | 2018-02-03 10:47 | PCM.DC ---
- Discharge Diagnoses Current Active Problems: Current Active and Chronic Problems Disequilibrium (Acute) You will use the following diet at home:: No restrictions Discharge Activity: Return to Normal Activity Call your doctor if you observe: Shortness of breath, Dizziness, Fainting spells, Chest pain Allergies/Adverse Reactions: Allergies bupropion HCl [From Wellbutrin] Allergy (Verified 11/03/17 14:32) Unknown quetiapine fumarate [From Seroquel] Allergy (Verified 11/03/17 14:32) Unknown trazodone Adverse Reaction (Verified 11/03/17 14:32) Other Medications to take at Discharge Multivitamins,Ther W-Minerals [Multivitamin With Minerals] 1 tablet PO DAILYCM #30 tablet 02/03/18 The following prescriptions were given: Multivitamins,Ther W-Minerals [Multivitamin With Minerals] 1 tablet PO DAILYCM #30 tablet Primary Care Physician: Care Physician,No Primary [Primary Care Provider] - Please follow up with your Primary Care Physician in: 1 Week Test Results: Test results from this visit will be discussed in further detail at your follow-up appointment, if applicable. Proposed Discharge Date: 02/03/18
--- NOTE | 2018-02-03 10:53 | DCINST_ITS ---
- Discharge Diagnoses Current Active Problems: Current Active and Chronic Problems Disequilibrium (Acute) You will use the following diet at home:: No restrictions Discharge Activity: Return to Normal Activity Call your doctor if you observe: Shortness of breath, Dizziness, Fainting spells, Chest pain Allergies/Adverse Reactions: Allergies bupropion HCl [From Wellbutrin] Allergy (Verified 11/03/17 14:32) Unknown quetiapine fumarate [From Seroquel] Allergy (Verified 11/03/17 14:32) Unknown trazodone Adverse Reaction (Verified 11/03/17 14:32) Other Medications to take at Discharge Multivitamins,Ther W-Minerals [Multivitamin With Minerals] 1 tablet PO DAILYCM #30 tablet 02/03/18 The following prescriptions were given: Multivitamins,Ther W-Minerals [Multivitamin With Minerals] 1 tablet PO DAILYCM #30 tablet Primary Care Physician: Care Physician,No Primary [Primary Care Provider] - Please follow up with your Primary Care Physician in: 1 Week Test Results: Test results from this visit will be discussed in further detail at your follow- up appointment, if applicable. Proposed Discharge Date: 02/03/18
--- NOTE | 2018-02-03 10:56 | PCM.DC.SUM ---
<Fabiola Burnette - Last Filed: 02/03/18 11:07> Discharge Date and Diagnosis Date of Admission: 02/02/18 Date of Discharge: 02/03/18 - Primary Discharge Diagnosis Active and Suspected Problems 1. Near syncope, unsteady gait 2. Acute kidney injury 3. Chronic alcohol abuse 4. Leukocytosis, suspect reactive-resolved 5. Hypokalemia/hypomagnesia - Secondary Discharge Diagnosis Chronic Problems Chronic obstructive pulmonary disease (COPD) (Chronic) COPD exacerbation (Chronic) Generalized weakness (Chronic) Essential hypertension (Chronic) Wernicke encephalopathy (Chronic) Alcohol abuse (Chronic) Seizure disorder (Chronic) Tobacco abuse (Chronic) Hospital Course and Treatment Imaging Results: Diagnostic Data Brain CT 02/02/18 19:04 IMPRESSION: Chronic involutional changes of the brain. Small vessel ischemia. Electronically Signed: Melly Nguyen MD at 19:39 EDT Tel , Service support , Chest X-Ray 02/02/18 19:10 IMPRESSION: No acute cardiopulmonary process. Electronically Signed: Melly Nguyen MD at 19:27 EDT Tel , Service support , Operations: None Procedures: 2-D Echocardiogram Summary of Care Provided: The patient is a 72 year old M admitted 02/02/2018 due to unsteadiness. Patient reports this is been ongoing for a few weeks. Patient reports he was previously on Prozac and Ativan and ran out. However, per external rx records, he has not received a benzodiazepine prescription since May 2017. Patient has a past medical history of chronic alcohol abuse, seizure disorder, tobacco abuse, hypertension, COPD. CIWA protocol during admission. Feel patients symptoms are due to alcohol use. Patient denies further unsteady gait during admission. Troponin negative. EKG without ST-T changes. Echocardiogram showed an EF of 65%, stage I diastolic dysfunction, mild tricuspid valve insufficiency. Orthostatic vitals negative. Brain CT showed chronic changes. Patient noted to have acute kidney injury. Resolved with IV fluids. Leukocytosis suspected reactive. Urinalysis and chest x-ray unremarkable. Electrolyte imbalance secondary to chronic alcohol use. Replaced per protocol. Patient denies further unsteady gait. Stable for discharge with follow-up with primary care physician in 1 week. General: Alert, Oriented x3, Cooperative HEENT: Atraumatic, PERRLA, EOMI, Normocephalic Neck: Supple, No JVD, Negative Carotid Bruits Lungs: Clear to auscultation, Normal air movement Cardiovascular: Regular rate, No murmurs Abdomen: Bowel Sounds Present, Soft, Non Tender Extremities: No edema, Capillary Refill Less than 3 Seconds Skin: No rashes, No breakdown Musculoskeletal: No Tenderness to Palpation of Joints or Extremities Neurological: Cranial nerves II-XII grossly intact, neuro grossly intact Psych/Mental Status: Normal Affect, Appropriate Patient seen exam prior to discharge. Physical assessment as noted above. Patient stable for discharge home with the follow-up recommendations as noted above. This patient was seen by ROMEO Garduno under the supervision of Dr. Govea. - Physical Exam Vital Signs Temp Pulse Resp BP Pulse Ox 98.7 F 101 H 24 H 158/84 H 93 02/03/18 09:13 02/03/18 09:13 02/03/18 09:13 02/03/18 09:13 02/03/18 09:13 Oxygen Flow Rate (L/min) 92 Oxygen Delivery Method Room Air Weight: 147 lb 0.773 oz Body Mass Index (BMI) 23.0 Finger Stick Blood Glucose 152 Orthostatic Vital Signs Start: 02/03/18 06:21 Freq: q24h Status: Active Protocol: Activity Type Activity Date Activity User E-Sign Co-Sign Detail Recorded Client Recorded Date Recorded By Document 02/03/18 06:21 [facility] [id number] 02/03/18 06:28 KDB 02/03/18 06:21 Orthostatic Vitals Standing -Blood Pressure (90/60-120/80) 170/99 H -Extremity Use Left Arm -Pulse Rate (60-100) 83 Sitting -Blood Pressure (90/60-120/80) 175/98 H -Extremity Use Left Arm -Pulse Rate (60-100) 84 Lying -Blood Pressure (90/60-120/80) 156/83 H -Extremity Use Left Arm -Pulse Rate (60-100) 76 Intake and Output for Last 24 Hours 10/15/18 10/16/18 10/17/18 23:59 23:59 23:59 Intake Total 407 / 407 Output Total 100 / 100 Balance 307 / 307 Laboratory Tests Past 24 Hrs 02/02/18 02/02/18 02/02/18 18:15 18:15 18:15 WBC 14.2 H RBC 3.85 L Hgb 11.5 L Hct 34.8 L MCV 90.4 MCH 29.9 MCHC 33.0 RDW 15.9 H RDW Differential 51.2 H Plt Count 271 MPV 9.6 Immature Gran % (Auto) 0.300 Neut % (Auto) 69.6 Lymph % (Auto) 18.0 L Mcminn % (Auto) 9.0 Eos % (Auto) 2.9 Baso % (Auto) 0.2 Absolute Neuts (auto) 9.9 H Absolute Lymphs (auto) 2.55 Total Counted Not Reportable Sodium 136 Potassium 3.0 L Chloride 98 Carbon Dioxide 29.0 Anion Gap 9 BUN 8 Creatinine 1.47 H Estim Creat Clear Calc 42.47 Est GFR (MDRD) Af Amer 61 Est GFR (MDRD) Non-Af 50 L BUN/Creatinine Ratio 5.4 L Glucose 152 H Calcium 8.7 Magnesium Troponin I < 0.015 Vitamin B12 Vitamin D 25-Hydroxy Urine Color Urine Clarity Urine pH Ur Specific [place] Urine Protein Urine Glucose (UA) Urine Ketones Urine Occult Blood Urine Nitrite Urine Bilirubin Urine Urobilinogen Ur Leukocyte Esterase Urine RBC Urine WBC Ur Squamous Epith Cells Ur Transition Epith Cell Urine Bacteria Urine Mucus Ur Random Sodium Urine Creatinine Ethyl Alcohol < 3.0 02/02/18 02/02/18 02/02/18 18:15 18:15 22:30 WBC RBC Hgb Hct MCV MCH MCHC RDW RDW Differential Plt Count MPV Immature Gran % (Auto) Neut % (Auto) Lymph % (Auto) Mcminn % (Auto) Eos % (Auto) Baso % (Auto) Absolute Neuts (auto) Absolute Lymphs (auto) Total Counted Sodium Potassium Chloride Carbon Dioxide Anion Gap BUN Creatinine Estim Creat Clear Calc Est GFR (MDRD) Af Amer Est GFR (MDRD) Non-Af BUN/Creatinine Ratio Glucose Calcium Magnesium 1.5 L Troponin I Vitamin B12 212 Vitamin D 25-Hydroxy Urine Color Yellow Urine Clarity Clear Urine pH 6.5 Ur Specific [place] 1.010 Urine Protein Negative Urine Glucose (UA) Normal Urine Ketones Negative Urine Occult Blood Negative Urine Nitrite Negative Urine Bilirubin Negative Urine Urobilinogen Normal Ur Leukocyte Esterase 100 H Urine RBC 0 SEEN Urine WBC 0-5 SEEN Ur Squamous Epith Cells 0-5 SEEN Ur Transition Epith Cell 0-5 SEEN Urine Bacteria 0 SEEN Urine Mucus 0 SEEN Ur Random Sodium Urine Creatinine Ethyl Alcohol 02/03/18 02/03/18 02/03/18 05:14 05:14 05:14 WBC 9.9 RBC 3.46 L Hgb 10.5 L Hct 32.1 L MCV 92.8 MCH 30.3 MCHC 32.7 RDW 15.9 H RDW Differential 50.8 H Plt Count 231 MPV 10.0 Immature Gran % (Auto) Neut % (Auto) Lymph % (Auto) Mcminn % (Auto) Eos % (Auto) Baso % (Auto) Absolute Neuts (auto) Absolute Lymphs (auto) Total Counted Sodium 142 Potassium 4.3 Chloride 110 H Carbon Dioxide 24.0 Anion Gap 8 BUN 9 Creatinine 1.14 Estim Creat Clear Calc 54.76 Est GFR (MDRD) Af Amer 81 Est GFR (MDRD) Non-Af 67 BUN/Creatinine Ratio 7.9 L Glucose 81 Calcium 8.5 Magnesium Troponin I Vitamin B12 Vitamin D 25-Hydroxy 20.1 L Urine Color Urine Clarity Urine pH Ur Specific [place] Urine Protein Urine Glucose (UA) Urine Ketones Urine Occult Blood Urine Nitrite Urine Bilirubin Urine Urobilinogen Ur Leukocyte Esterase Urine RBC Urine WBC Ur Squamous Epith Cells Ur Transition Epith Cell Urine Bacteria Urine Mucus Ur Random Sodium Urine Creatinine Ethyl Alcohol 02/03/18 02/03/18 09:24 09:24 WBC RBC Hgb Hct MCV MCH MCHC RDW RDW Differential Plt Count MPV Immature Gran % (Auto) Neut % (Auto) Lymph % (Auto) Mcminn % (Auto) Eos % (Auto) Baso % (Auto) Absolute Neuts (auto) Absolute Lymphs (auto) Total Counted Sodium Potassium Chloride Carbon Dioxide Anion Gap BUN Creatinine Estim Creat Clear Calc Est GFR (MDRD) Af Amer Est GFR (MDRD) Non-Af BUN/Creatinine Ratio Glucose Calcium Magnesium Troponin I Vitamin B12 Vitamin D 25-Hydroxy Urine Color Urine Clarity Urine pH Ur Specific [place] Urine Protein Urine Glucose (UA) Urine Ketones Urine Occult Blood Urine Nitrite Urine Bilirubin Urine Urobilinogen Ur Leukocyte Esterase Urine RBC Urine WBC Ur Squamous Epith Cells Ur Transition Epith Cell Urine Bacteria Urine Mucus Ur Random Sodium 99 Urine Creatinine 42.70 Ethyl Alcohol Discharge Diet: No Restrictions Discharge Activity: Return to Normal Activity Call your doctor if you observe: Shortness of breath, Dizziness, Fainting spells, Chest pain Home Medications: Medications to take at Discharge Fluoxetine [Prozac] 10 mg PO DAILY #30 capsule 02/03/18 Lisinopril/Hydrochlorothiazide [Zestoretic 10/12.5 Tablet] 1 tablet PO DAILY #30 tablet 02/03/18 Multivitamins,Ther W-Minerals [Multivitamin With Minerals] 1 tablet PO DAILYCM #30 tablet 02/03/18 Following Prescrptions Were Given to Patient: Fluoxetine [Prozac] 10 mg PO DAILY #30 capsule Lisinopril/Hydrochlorothiazide [Zestoretic 10/12.5 Tablet] 1 tablet PO DAILY #30 tablet Multivitamins,Ther W-Minerals [Multivitamin With Minerals] 1 tablet PO DAILYCM #30 tablet Primary Care Physician: Care Physician,No Primary [Primary Care Provider] - Please follow up with your Primary Care Physician in: 1 Week Disposition: Home Minutes spent on discharge:: 35 Patient Condition:: Stable Medical Necessity - Tobacco Use Smoking Status: Current every day smoker Tobacco Use: Cigarettes Meaningful Use Info Meaningful Use Diagnoses (Choose all that apply): None applicable <Rc Govea - Last Filed: 02/03/18 14:43> Discharge Date and Diagnosis - Secondary Discharge Diagnosis Chronic Problems Chronic obstructive pulmonary disease (COPD) (Chronic) COPD exacerbation (Chronic) Generalized weakness (Chronic) Essential hypertension (Chronic) Wernicke encephalopathy (Chronic) Alcohol abuse (Chronic) Seizure disorder (Chronic) Tobacco abuse (Chronic) Hospital Course and Treatment Procedures: 2-D Echocardiogram Summary of Care Provided: This patient was seen in conjunction with INJECTION MOLDING MACHINE TENDER, Fabiola. I have independently interviewed and examined the patient and reviewed pertinent history, examination findings, laboratory and plan of management. I have reviewed the note and agree with the documented findings with the few additional points. In brief, patient is admitted for unsteady gait for a few weeks. Patient has history of chronic alcohol use and dependence. Seems that he has unsteady gait/disequilibrium secondary to chronic alcohol use. Echo cardiogram was done and reported as above. Labs reviewed and shows low B12 212, magnesium 1.5. Vitamin D 25-hydroxy 20. Prescription for vitamin B12 supplement, magnesium and vitamin D supplements sent to pharmacy. Hypokalemia corrected. Repeat potassium 4.3 Discharge medication reconciliation done. Discharge follow-up instructions completed. I have discussed my assessment with INJECTION MOLDING MACHINE TENDER, Fabiola and orders have been reviewed. - Physical Exam General: Alert, Oriented x3, Cooperative HEENT: Atraumatic, PERRLA, EOMI, Normocephalic Neck: Supple, No JVD, Negative Carotid Bruits Lungs: Clear to auscultation, No rhonchi, No wheeze, - Cardiovascular: Regular rate, Regular Rhythm, Normal S1, Normal S2, No murmurs Abdomen: Bowel Sounds Present, Soft, Non Tender, Non-Distended Extremities: No edema, Capillary Refill Less than 3 Seconds Skin: No rashes, No breakdown Musculoskeletal: No Tenderness to Palpation of Joints or Extremities Neurological: Cranial nerves II-XII grossly intact, Neuro grossly intact, - Psych/Mental Status: Normal Affect, Appropriate Vital Signs Temp Pulse Resp BP Pulse Ox 98.5 F 87 18 163/101 H 98 02/03/18 13:13 02/03/18 13:13 02/03/18 13:13 02/03/18 13:13 02/03/18 13:13 Oxygen Flow Rate (L/min) 96 Oxygen Delivery Method Room Air Weight: 147 lb 0.773 oz Body Mass Index (BMI) 23.0 Finger Stick Blood Glucose 152 Orthostatic Vital Signs Start: 02/03/18 06:21 Freq: q24h Status: Active Protocol: Activity Type Activity Date Activity User E-Sign Co-Sign Detail Recorded Client Recorded Date Recorded By Document 02/03/18 06:21 [facility] [id number] 02/03/18 06:28 KDB 02/03/18 06:21 Orthostatic Vitals Standing -Blood Pressure (90/60-120/80) 170/99 H -Extremity Use Left Arm -Pulse Rate (60-100) 83 Sitting -Blood Pressure (90/60-120/80) 175/98 H -Extremity Use Left Arm -Pulse Rate (60-100) 84 Lying -Blood Pressure (90/60-120/80) 156/83 H -Extremity Use Left Arm -Pulse Rate (60-100) 76 Intake and Output for Last 24 Hours 02/01/18 02/02/18 02/03/18 23:59 23:59 23:59 Intake Total 1058 / 1058 Output Total 400 / 400 Balance 658 / 658 Laboratory Tests Past 24 Hrs 02/02/18 02/02/18 02/02/18 18:15 18:15 18:15 WBC 14.2 H RBC 3.85 L Hgb 11.5 L Hct 34.8 L MCV 90.4 MCH 29.9 MCHC 33.0 RDW 15.9 H RDW Differential 51.2 H Plt Count 271 MPV 9.6 Immature Gran % (Auto) 0.300 Neut % (Auto) 69.6 Lymph % (Auto) 18.0 L Mcminn % (Auto) 9.0 Eos % (Auto) 2.9 Baso % (Auto) 0.2 Absolute Neuts (auto) 9.9 H Absolute Lymphs (auto) 2.55 Total Counted Not Reportable Sodium 136 Potassium 3.0 L Chloride 98 Carbon Dioxide 29.0 Anion Gap 9 BUN 8 Creatinine 1.47 H Estim Creat Clear Calc 42.47 Est GFR (MDRD) Af Amer 61 Est GFR (MDRD) Non-Af 50 L BUN/Creatinine Ratio 5.4 L Glucose 152 H Calcium 8.7 Magnesium Troponin I < 0.015 Vitamin B12 Vitamin D 25-Hydroxy Urine Color Urine Clarity Urine pH Ur Specific [place] Urine Protein Urine Glucose (UA) Urine Ketones Urine Occult Blood Urine Nitrite Urine Bilirubin Urine Urobilinogen Ur Leukocyte Esterase Urine RBC Urine WBC Ur Squamous Epith Cells Ur Transition Epith Cell Urine Bacteria Urine Mucus Ur Random Sodium Urine Creatinine Ethyl Alcohol < 3.0 02/02/18 02/02/18 02/02/18 18:15 18:15 22:30 WBC RBC Hgb Hct MCV MCH MCHC RDW RDW Differential Plt Count MPV Immature Gran % (Auto) Neut % (Auto) Lymph % (Auto) Mcminn % (Auto) Eos % (Auto) Baso % (Auto) Absolute Neuts (auto) Absolute Lymphs (auto) Total Counted Sodium Potassium Chloride Carbon Dioxide Anion Gap BUN Creatinine Estim Creat Clear Calc Est GFR (MDRD) Af Amer Est GFR (MDRD) Non-Af BUN/Creatinine Ratio Glucose Calcium Magnesium 1.5 L Troponin I Vitamin B12 212 Vitamin D 25-Hydroxy Urine Color Yellow Urine Clarity Clear Urine pH 6.5 Ur Specific [place] 1.010 Urine Protein Negative Urine Glucose (UA) Normal Urine Ketones Negative Urine Occult Blood Negative Urine Nitrite Negative Urine Bilirubin Negative Urine Urobilinogen Normal Ur Leukocyte Esterase 100 H Urine RBC 0 SEEN Urine WBC 0-5 SEEN Ur Squamous Epith Cells 0-5 SEEN Ur Transition Epith Cell 0-5 SEEN Urine Bacteria 0 SEEN Urine Mucus 0 SEEN Ur Random Sodium Urine Creatinine Ethyl Alcohol 02/03/18 02/03/18 02/03/18 05:14 05:14 05:14 WBC 9.9 RBC 3.46 L Hgb 10.5 L Hct 32.1 L MCV 92.8 MCH 30.3 MCHC 32.7 RDW 15.9 H RDW Differential 50.8 H Plt Count 231 MPV 10.0 Immature Gran % (Auto) Neut % (Auto) Lymph % (Auto) [place]min[place] % (Auto) Eos % (Auto) Baso % (Auto) Absolute Neuts (auto) Absolute Lymphs (auto) Total Counted Sodium 142 Potassium 4.3 Chloride 110 H Carbon Dioxide 24.0 Anion Gap 8 BUN 9 Creatinine 1.14 Estim Creat Clear Calc 54.76 Est GFR (MDRD) Af Amer 81 Est GFR (MDRD) Non-Af 67 BUN/Creatinine Ratio 7.9 L Glucose 81 Calcium 8.5 Magnesium Troponin I Vitamin B12 Vitamin D 25-Hydroxy 20.1 L Urine Color Urine Clarity Urine pH Ur Specific [place] Urine Protein Urine Glucose (UA) Urine Ketones Urine Occult Blood Urine Nitrite Urine Bilirubin Urine Urobilinogen Ur Leukocyte Esterase Urine RBC Urine WBC Ur Squamous Epith Cells Ur Transition Epith Cell Urine Bacteria Urine Mucus Ur Random Sodium Urine Creatinine Ethyl Alcohol 02/03/18 02/03/18 09:24 09:24 WBC RBC Hgb Hct MCV MCH MCHC RDW RDW Differential Plt Count MPV Immature Gran % (Auto) Neut % (Auto) Lymph % (Auto) Mcmin[place] % (Auto) Eos % (Auto) Baso % (Auto) Absolute Neuts (auto) Absolute Lymphs (auto) Total Counted Sodium Potassium Chloride Carbon Dioxide Anion Gap BUN Creatinine Estim Creat Clear Calc Est GFR (MDRD) Af Amer Est GFR (MDRD) Non-Af BUN/Creatinine Ratio Glucose Calcium Magnesium Troponin I Vitamin B12 Vitamin D 25-Hydroxy Urine Color Urine Clarity Urine pH Ur Specific [place] Urine Protein Urine Glucose (UA) Urine Ketones Urine Occult Blood Urine Nitrite Urine Bilirubin Urine Urobilinogen Ur Leukocyte Esterase Urine RBC Urine WBC Ur Squamous Epith Cells Ur Transition Epith Cell Urine Bacteria Urine Mucus Ur Random Sodium 99 Urine Creatinine 42.70 Ethyl Alcohol Code Visit Inpatient E&M: 46330 Disch Hosp
--- NOTE | 2018-02-03 11:03 | DS.PCM_ITS ---
<Fabiola Burnette - Last Filed: 02/03/18 11:07> Discharge Date and Diagnosis Date of Admission: 02/02/18 Date of Discharge: 02/03/18 - Primary Discharge Diagnosis Active and Suspected Problems 1. Near syncope, unsteady gait 2. Acute kidney injury 3. Chronic alcohol abuse 4. Leukocytosis, suspect reactive-resolved 5. Hypokalemia/hypomagnesia - Secondary Discharge Diagnosis Chronic Problems Chronic obstructive pulmonary disease (COPD) (Chronic) COPD exacerbation (Chronic) Generalized weakness (Chronic) Essential hypertension (Chronic) Wernicke encephalopathy (Chronic) Alcohol abuse (Chronic) Seizure disorder (Chronic) Tobacco abuse (Chronic) Hospital Course and Treatment Imaging Results: Diagnostic Data Brain CT 02/02/18 19:04 IMPRESSION: Chronic involutional changes of the brain. Small vessel ischemia. Electronically Signed: Melly Nguyen MD at 19:39 EDT Tel , Service support , Chest X-Ray 02/02/18 19:10 IMPRESSION: No acute cardiopulmonary process. Electronically Signed: Melly Nguyen MD at 19:27 EDT Tel , Service support , Operations: None Procedures: 2-D Echocardiogram Summary of Care Provided: The patient is a 72 year old M admitted 02/02/2018 due to unsteadiness. Patient reports this is been ongoing for a few weeks. Patient reports he was previously on Prozac and Ativan and ran out. However, per external rx records, he has not received a benzodiazepine prescription since May 2017. Patient has a past medical history of chronic alcohol abuse, seizure disorder, tobacco abuse, hypertension, COPD. CIWA protocol during admission. Feel patients symptoms are due to alcohol use. Patient denies further unsteady gait during admission. Troponin negative. EKG without ST-T changes. Echocardiogram showed an EF of 65%, stage I diastolic dysfunction, mild tricuspid valve insufficiency. Orthostatic vitals negative. Brain CT showed chronic changes. Patient noted to have acute kidney injury. Resolved with IV fluids. Leukocytosis suspected reactive. Urinalysis and chest x-ray unremarkable. Electrolyte imbalance secondary to chronic alcohol use. Replaced per protocol. Patient denies further unsteady gait. Stable for discharge with follow-up with primary care physician in 1 week. General: Alert, Oriented x3, Cooperative HEENT: Atraumatic, PERRLA, EOMI, Normocephalic Neck: Supple, No JVD, Negative Carotid Bruits Lungs: Clear to auscultation, Normal air movement Cardiovascular: Regular rate, No murmurs Abdomen: Bowel Sounds Present, Soft, Non Tender Extremities: No edema, Capillary Refill Less than 3 Seconds Skin: No rashes, No breakdown Musculoskeletal: No Tenderness to Palpation of Joints or Extremities Neurological: Cranial nerves II-XII grossly intact, neuro grossly intact Psych/Mental Status: Normal Affect, Appropriate Patient seen exam prior to discharge. Physical assessment as noted above. Patient stable for discharge home with the follow-up recommendations as noted above. This patient was seen by ROMEO Garduno under the supervision of Dr. Govea. - Physical Exam Vital Signs Temp Pulse Resp BP Pulse Ox 98.7 F 101 H 24 H 158/84 H 93 02/03/18 09:13 02/03/18 09:13 02/03/18 09:13 02/03/18 09:13 02/03/18 09:13 Oxygen Flow Rate (L/min) 92 Oxygen Delivery Method Room Air Weight: 147 lb 0.773 oz Body Mass Index (BMI) 23.0 Finger Stick Blood Glucose 152 Orthostatic Vital Signs Start: 02/03/18 06:21 Freq: q24h Status: Active Protocol: Activity Type Activity Date Activity User E-Sign Co-Sign Detail Recorded Client Recorded Date Recorded By Document 02/03/18 06:21 [facility] [id number] 02/03/18 06:28 KDB 02/03/18 06:21 Orthostatic Vitals Standing -Blood Pressure (90/60-120/80) 170/99 H -Extremity Use Left Arm -Pulse Rate (60-100) 83 Sitting -Blood Pressure (90/60-120/80) 175/98 H -Extremity Use Left Arm -Pulse Rate (60-100) 84 Lying -Blood Pressure (90/60-120/80) 156/83 H -Extremity Use Left Arm -Pulse Rate (60-100) 76 Intake and Output for Last 24 Hours 10/15/18 10/16/18 10/17/18 23:59 23:59 23:59 Intake Total 407 / 407 Output Total 100 / 100 Balance 307 / 307 Laboratory Tests Past 24 Hrs 02/02/18 02/02/18 02/02/18 18:15 18:15 18:15 WBC 14.2 H RBC 3.85 L Hgb 11.5 L Hct 34.8 L MCV 90.4 MCH 29.9 MCHC 33.0 RDW 15.9 H RDW Differential 51.2 H Plt Count 271 MPV 9.6 Immature Gran % (Auto) 0.300 Neut % (Auto) 69.6 Lymph % (Auto) 18.0 L [place] % (Auto) 9.0 Eos % (Auto) 2.9 Baso % (Auto) 0.2 Absolute Neuts (auto) 9.9 H Absolute Lymphs (auto) 2.55 Total Counted Not Reportable Sodium 136 Potassium 3.0 L Chloride 98 Carbon Dioxide 29.0 Anion Gap 9 BUN 8 Creatinine 1.47 H Estim Creat Clear Calc 42.47 Est GFR (MDRD) Af Amer 61 Est GFR (MDRD) Non-Af 50 L BUN/Creatinine Ratio 5.4 L Glucose 152 H Calcium 8.7 Magnesium Troponin I < 0.015 Vitamin B12 Vitamin D 25-Hydroxy Urine Color Urine Clarity Urine pH Ur Specific [place] Urine Protein Urine Glucose (UA) Urine Ketones Urine Occult Blood Urine Nitrite Urine Bilirubin Urine Urobilinogen Ur Leukocyte Esterase Urine RBC Urine WBC Ur Squamous Epith Cells Ur Transition Epith Cell Urine Bacteria Urine Mucus Ur Random Sodium Urine Creatinine Ethyl Alcohol < 3.0 02/02/18 02/02/18 02/02/18 18:15 18:15 22:30 WBC RBC Hgb Hct MCV MCH MCHC RDW RDW Differential Plt Count MPV Immature Gran % (Auto) Neut % (Auto) Lymph % (Auto) [place] % (Auto) Eos % (Auto) Baso % (Auto) Absolute Neuts (auto) Absolute Lymphs (auto) Total Counted Sodium Potassium Chloride Carbon Dioxide Anion Gap BUN Creatinine Estim Creat Clear Calc Est GFR (MDRD) Af Amer Est GFR (MDRD) Non-Af BUN/Creatinine Ratio Glucose Calcium Magnesium 1.5 L Troponin I Vitamin B12 212 Vitamin D 25-Hydroxy Urine Color Yellow Urine Clarity Clear Urine pH 6.5 Ur Specific [place] 1.010 Urine Protein Negative Urine Glucose (UA) Normal Urine Ketones Negative Urine Occult Blood Negative Urine Nitrite Negative Urine Bilirubin Negative Urine Urobilinogen Normal Ur Leukocyte Esterase 100 H Urine RBC 0 SEEN Urine WBC 0-5 SEEN Ur Squamous Epith Cells 0-5 SEEN Ur Transition Epith Cell 0-5 SEEN Urine Bacteria 0 SEEN Urine Mucus 0 SEEN Ur Random Sodium Urine Creatinine Ethyl Alcohol 02/03/18 02/03/18 02/03/18 05:14 05:14 05:14 WBC 9.9 RBC 3.46 L Hgb 10.5 L Hct 32.1 L MCV 92.8 MCH 30.3 MCHC 32.7 RDW 15.9 H RDW Differential 50.8 H Plt Count 231 MPV 10.0 Immature Gran % (Auto) Neut % (Auto) Lymph % (Auto) [place] % (Auto) Eos % (Auto) Baso % (Auto) Absolute Neuts (auto) Absolute Lymphs (auto) Total Counted Sodium 142 Potassium 4.3 Chloride 110 H Carbon Dioxide 24.0 Anion Gap 8 BUN 9 Creatinine 1.14 Estim Creat Clear Calc 54.76 Est GFR (MDRD) Af Amer 81 Est GFR (MDRD) Non-Af 67 BUN/Creatinine Ratio 7.9 L Glucose 81 Calcium 8.5 Magnesium Troponin I Vitamin B12 Vitamin D 25-Hydroxy 20.1 L Urine Color Urine Clarity Urine pH Ur Specific [place] Urine Protein Urine Glucose (UA) Urine Ketones Urine Occult Blood Urine Nitrite Urine Bilirubin Urine Urobilinogen Ur Leukocyte Esterase Urine RBC Urine WBC Ur Squamous Epith Cells Ur Transition Epith Cell Urine Bacteria Urine Mucus Ur Random Sodium Urine Creatinine Ethyl Alcohol 02/03/18 02/03/18 09:24 09:24 WBC RBC Hgb Hct MCV MCH MCHC RDW RDW Differential Plt Count MPV Immature Gran % (Auto) Neut % (Auto) Lymph % (Auto) [place] % (Auto) Eos % (Auto) Baso % (Auto) Absolute Neuts (auto) Absolute Lymphs (auto) Total Counted Sodium Potassium Chloride Carbon Dioxide Anion Gap BUN Creatinine Estim Creat Clear Calc Est GFR (MDRD) Af Amer Est GFR (MDRD) Non-Af BUN/Creatinine Ratio Glucose Calcium Magnesium Troponin I Vitamin B12 Vitamin D 25-Hydroxy Urine Color Urine Clarity Urine pH Ur Specific [place] Urine Protein Urine Glucose (UA) Urine Ketones Urine Occult Blood Urine Nitrite Urine Bilirubin Urine Urobilinogen Ur Leukocyte Esterase Urine RBC Urine WBC Ur Squamous Epith Cells Ur Transition Epith Cell Urine Bacteria Urine Mucus Ur Random Sodium 99 Urine Creatinine 42.70 Ethyl Alcohol Discharge Diet: No Restrictions Discharge Activity: Return to Normal Activity Call your doctor if you observe: Shortness of breath, Dizziness, Fainting spells, Chest pain Home Medications: Medications to take at Discharge Fluoxetine [Prozac] 10 mg PO DAILY #30 capsule 02/03/18 Lisinopril/Hydrochlorothiazide [Zestoretic 10/12.5 Tablet] 1 tablet PO DAILY #30 tablet 02/03/18 Multivitamins,Ther W-Minerals [Multivitamin With Minerals] 1 tablet PO DAILYCM #30 tablet 02/03/18 Following Prescrptions Were Given to Patient: Fluoxetine [Prozac] 10 mg PO DAILY #30 capsule Lisinopril/Hydrochlorothiazide [Zestoretic 10/12.5 Tablet] 1 tablet PO DAILY #30 tablet Multivitamins,Ther W-Minerals [Multivitamin With Minerals] 1 tablet PO DAILYCM #30 tablet Primary Care Physician: Care Physician,No Primary [Primary Care Provider] - Please follow up with your Primary Care Physician in: 1 Week Disposition: Home Minutes spent on discharge:: 35 Patient Condition:: Stable Medical Necessity - Tobacco Use Smoking Status: Current every day smoker Tobacco Use: Cigarettes Meaningful Use Info Meaningful Use Diagnoses (Choose all that apply): None applicable <Rc Govea - Last Filed: 02/03/18 14:43> Discharge Date and Diagnosis - Secondary Discharge Diagnosis Chronic Problems Chronic obstructive pulmonary disease (COPD) (Chronic) COPD exacerbation (Chronic) Generalized weakness (Chronic) Essential hypertension (Chronic) Wernicke encephalopathy (Chronic) Alcohol abuse (Chronic) Seizure disorder (Chronic) Tobacco abuse (Chronic) Hospital Course and Treatment Procedures: 2-D Echocardiogram Summary of Care Provided: This patient was seen in conjunction with PHYSICAL THERAPIST AIDE, Fabiola. I have independently interviewed and examined the patient and reviewed pertinent history, examination findings, laboratory and plan of management. I have reviewed the note and agree with the documented findings with the few additional points. In brief, patient is admitted for unsteady gait for a few weeks. Patient has history of chronic alcohol use and dependence. Seems that he has unsteady gait/disequilibrium secondary to chronic alcohol use. Echo cardiogram was done and reported as above. Labs reviewed and shows low B12 212, magnesium 1.5. Vitamin D 25-hydroxy 20. Prescription for vitamin B12 supplement, magnesium and vitamin D supplements sent to pharmacy. Hypokalemia corrected. Repeat potassium 4.3 Discharge medication reconciliation done. Discharge follow-up instructions completed. I have discussed my assessment with PHYSICAL THERAPIST AIDE, Fabiola and orders have been reviewed. - Physical Exam General: Alert, Oriented x3, Cooperative HEENT: Atraumatic, PERRLA, EOMI, Normocephalic Neck: Supple, No JVD, Negative Carotid Bruits Lungs: Clear to auscultation, No rhonchi, No wheeze, - Cardiovascular: Regular rate, Regular Rhythm, Normal S1, Normal S2, No murmurs Abdomen: Bowel Sounds Present, Soft, Non Tender, Non-Distended Extremities: No edema, Capillary Refill Less than 3 Seconds Skin: No rashes, No breakdown Musculoskeletal: No Tenderness to Palpation of Joints or Extremities Neurological: Cranial nerves II-XII grossly intact, Neuro grossly intact, - Psych/Mental Status: Normal Affect, Appropriate Vital Signs Temp Pulse Resp BP Pulse Ox 98.5 F 87 18 163/101 H 98 02/03/18 13:13 02/03/18 13:13 02/03/18 13:13 02/03/18 13:13 02/03/18 13:13 Oxygen Flow Rate (L/min) 96 Oxygen Delivery Method Room Air Weight: 147 lb 0.773 oz Body Mass Index (BMI) 23.0 Finger Stick Blood Glucose 152 Orthostatic Vital Signs Start: 02/03/18 06:21 Freq: q24h Status: Active Protocol: Activity Type Activity Date Activity User E-Sign Co-Sign Detail Recorded Client Recorded Date Recorded By Document 02/03/18 06:21 [facility] [id number] 02/03/18 06:28 KDB 02/03/18 06:21 Orthostatic Vitals Standing -Blood Pressure (90/60-120/80) 170/99 H -Extremity Use Left Arm -Pulse Rate (60-100) 83 Sitting -Blood Pressure (90/60-120/80) 175/98 H -Extremity Use Left Arm -Pulse Rate (60-100) 84 Lying -Blood Pressure (90/60-120/80) 156/83 H -Extremity Use Left Arm -Pulse Rate (60-100) 76 Intake and Output for Last 24 Hours 02/01/18 02/02/18 02/03/18 23:59 23:59 23:59 Intake Total 1058 / 1058 Output Total 400 / 400 Balance 658 / 658 Laboratory Tests Past 24 Hrs 02/02/18 02/02/18 02/02/18 18:15 18:15 18:15 WBC 14.2 H RBC 3.85 L Hgb 11.5 L Hct 34.8 L MCV 90.4 MCH 29.9 MCHC 33.0 RDW 15.9 H RDW Differential 51.2 H Plt Count 271 MPV 9.6 Immature Gran % (Auto) 0.300 Neut % (Auto) 69.6 Lymph % (Auto) 18.0 L [place] % (Auto) 9.0 Eos % (Auto) 2.9 Baso % (Auto) 0.2 Absolute Neuts (auto) 9.9 H Absolute Lymphs (auto) 2.55 Total Counted Not Reportable Sodium 136 Potassium 3.0 L Chloride 98 Carbon Dioxide 29.0 Anion Gap 9 BUN 8 Creatinine 1.47 H Estim Creat Clear Calc 42.47 Est GFR (MDRD) Af Amer 61 Est GFR (MDRD) Non-Af 50 L BUN/Creatinine Ratio 5.4 L Glucose 152 H Calcium 8.7 Magnesium Troponin I < 0.015 Vitamin B12 Vitamin D 25-Hydroxy Urine Color Urine Clarity Urine pH Ur Specific [place] Urine Protein Urine Glucose (UA) Urine Ketones Urine Occult Blood Urine Nitrite Urine Bilirubin Urine Urobilinogen Ur Leukocyte Esterase Urine RBC Urine WBC Ur Squamous Epith Cells Ur Transition Epith Cell Urine Bacteria Urine Mucus Ur Random Sodium Urine Creatinine Ethyl Alcohol < 3.0 02/02/18 02/02/18 02/02/18 18:15 18:15 22:30 WBC RBC Hgb Hct MCV MCH MCHC RDW RDW Differential Plt Count MPV Immature Gran % (Auto) Neut % (Auto) Lymph % (Auto) [place] % (Auto) Eos % (Auto) Baso % (Auto) Absolute Neuts (auto) Absolute Lymphs (auto) Total Counted Sodium Potassium Chloride Carbon Dioxide Anion Gap BUN Creatinine Estim Creat Clear Calc Est GFR (MDRD) Af Amer Est GFR (MDRD) Non-Af BUN/Creatinine Ratio Glucose Calcium Magnesium 1.5 L Troponin I Vitamin B12 212 Vitamin D 25-Hydroxy Urine Color Yellow Urine Clarity Clear Urine pH 6.5 Ur Specific [place] 1.010 Urine Protein Negative Urine Glucose (UA) Normal Urine Ketones Negative Urine Occult Blood Negative Urine Nitrite Negative Urine Bilirubin Negative Urine Urobilinogen Normal Ur Leukocyte Esterase 100 H Urine RBC 0 SEEN Urine WBC 0-5 SEEN Ur Squamous Epith Cells 0-5 SEEN Ur Transition Epith Cell 0-5 SEEN Urine Bacteria 0 SEEN Urine Mucus 0 SEEN Ur Random Sodium Urine Creatinine Ethyl Alcohol 02/03/18 02/03/18 02/03/18 05:14 05:14 05:14 WBC 9.9 RBC 3.46 L Hgb 10.5 L Hct 32.1 L MCV 92.8 MCH 30.3 MCHC 32.7 RDW 15.9 H RDW Differential 50.8 H Plt Count 231 MPV 10.0 Immature Gran % (Auto) Neut % (Auto) Lymph % (Auto) [place] % (Auto) Eos % (Auto) Baso % (Auto) Absolute Neuts (auto) Absolute Lymphs (auto) Total Counted Sodium 142 Potassium 4.3 Chloride 110 H Carbon Dioxide 24.0 Anion Gap 8 BUN 9 Creatinine 1.14 Estim Creat Clear Calc 54.76 Est GFR (MDRD) Af Amer 81 Est GFR (MDRD) Non-Af 67 BUN/Creatinine Ratio 7.9 L Glucose 81 Calcium 8.5 Magnesium Troponin I Vitamin B12 Vitamin D 25-Hydroxy 20.1 L Urine Color Urine Clarity Urine pH Ur Specific [place] Urine Protein Urine Glucose (UA) Urine Ketones Urine Occult Blood Urine Nitrite Urine Bilirubin Urine Urobilinogen Ur Leukocyte Esterase Urine RBC Urine WBC Ur Squamous Epith Cells Ur Transition Epith Cell Urine Bacteria Urine Mucus Ur Random Sodium Urine Creatinine Ethyl Alcohol 02/03/18 02/03/18 09:24 09:24 WBC RBC Hgb Hct MCV MCH MCHC RDW RDW Differential Plt Count MPV Immature Gran % (Auto) Neut % (Auto) Lymph % (Auto) [place] % (Auto) Eos % (Auto) Baso % (Auto) Absolute Neuts (auto) Absolute Lymphs (auto) Total Counted Sodium Potassium Chloride Carbon Dioxide Anion Gap BUN Creatinine Estim Creat Clear Calc Est GFR (MDRD) Af Amer Est GFR (MDRD) Non-Af BUN/Creatinine Ratio Glucose Calcium Magnesium Troponin I Vitamin B12 Vitamin D 25-Hydroxy Urine Color Urine Clarity Urine pH Ur Specific [place] Urine Protein Urine Glucose (UA) Urine Ketones Urine Occult Blood Urine Nitrite Urine Bilirubin Urine Urobilinogen Ur Leukocyte Esterase Urine RBC Urine WBC Ur Squamous Epith Cells Ur Transition Epith Cell Urine Bacteria Urine Mucus Ur Random Sodium 99 Urine Creatinine 42.70 Ethyl Alcohol Code Visit Inpatient E&M: [id number] Disch Hosp
--- NOTE | 2018-02-03 13:05 | NURSING ---
student nurse charting reviewed by this rn.
[2018-02-03] MEDS: Lisinopril 10 MG Tablet PO (13:08)
[2018-02-03] MEDS: hydroCHLOROthiazide 12.5mg 12.5 MG PO (13:08)
== END 2018-02-03 10:49 | disposition home or self-care (01) ==
LOC: ED 19:11 → PCU 02-03 00:16
PROVIDERS: Admitting Provider Hospitalist; Emergency Provider Emergency Medicine; Visit Provider Internal Medicine
DX: R55 Syncope and collapse (principal); N17.9 Acute kidney failure, unspecified; E87.6 Hypokalemia; R26.81 Unsteadiness on feet; E83.42 Hypomagnesemia; J44.9 Chronic obstructive pulmonary disease, unspecified; G40.909 Epilepsy, unspecified, not intractable, without status epilepticus; I10 Essential (primary) hypertension; E51.2 Wernicke's encephalopathy; R29.6 Repeated falls; F41.9 Anxiety disorder, unspecified; F32.9 Major depressive disorder, single episode, unspecified; F17.210 Nicotine dependence, cigarettes, uncomplicated; F10.20 Alcohol dependence, uncomplicated; D72.829 Elevated white blood cell count, unspecified
CPT/HCPCS: 36415; 70450; 71045; 80048; 80320; 81001; 82306; 82570; 82607; 83735; 84300; 84484; 85025; 85027; 93005; 93306; 96361; 96372; 96374; 97162; 97802; 99218; 99285; J7030; J7040; J7120; A4216; G0378; G0480

== ENCOUNTER 2018-09-26 11:26 | Emergency (ER) | payer MEDICARE, MEDICAID, SELFPAY ==
[2018-09-09 15:04] VITALS: BMI 23.0
[2018-09-26 11:27] VITALS: BP 166/106; PULSE 87; RESP 20; TEMP 36.5; O2SAT 97; BMI 24.5
--- NOTE | 2018-09-26 11:44 | EKG12_ITS ---
Test Reason : ANXIETY Blood Pressure : / mmHG Vent. Rate : 079 BPM Atrial Rate : 079 BPM P-R Int : 176 ms QRS Dur : 080 ms QT Int : 360 ms P-R-T Axes : 051 -14 049 degrees QTc Int : 412 ms Normal sinus rhythm Inferior infarct , age undetermined Abnormal ECG Confirmed by CAROLANN SPRINGER, GRACY ([id number]), field map editor ANNAMARIE CORTEZ ([id number]) on 09/28/2018 8:06:34 AM Referred By: ZENIA Confirmed By:GRACY VUONG MD
--- NOTE | 2018-09-26 11:47 | ED.VISSUMM ---
- ER Visit Summary Date of Service: 09/26/18 Chief Complaint: Anxiety History of Present Illness: The patient is a 72 M presenting with anxiety. Patient states he has had anxiety for years. He states his psychiatrist Dr. Chavez retired. He has been out of his medication for the past 2 to 3 weeks. He has appointment with the counseling center next week. He denies suicidal ideation. He states his anxiety has worsened since he ran out of his medications. He states he drank alcohol and used marijuana last night to try to help him sleep. He also states he has intermittent dizziness and unsteadiness for the past several months. He denies chest pain or shortness of breath. Denies other complaints. Physical Examination: Vitals are stable. Patient is afebrile. Alert no acute distress. HEENT exam is unremarkable. Neck is supple. Lungs are clear and equal bilaterally. Heart is regular rate and rhythm. Abdomen is soft nontender nondistended. Extremities are unremarkable. Skin is warm and dry. No focal neurologic deficit. Anxious. Denies suicidal ideation Remainder of exam is unremarkable. Emergency Department Course and Treatment: Patient was given Ativan po. EKG is sinus rate of 79 with no acute ischemic changes. CBC normal except white count 12.3. Chemistries normal except sodium 131, glucose 121, BUN 19. Troponin is negative. Patient had mild dizziness with standing. He was given IV fluids. He has improvement of his symptoms. He is given a prescription for Prozac. He is advised to follow-up with the counseling center. He continues to deny suicidal ideation. Advised return to ED for any worsening complaints. Disposition: Discharge home Impression: Anxiety This note was generated with Locu dictation software. It may contain incorrect words, spelling, and punctuation that were not noted in review of the chart prior to signing ED Disposition - Plan for ED Patient: Referrals: Care Physician,No Primary [Primary Care Provider] -
[2018-09-26 12:12] LABS: Absolute Lymphocyte Count 2.43 X10^3/ul (0.83-4.51); Absolute Neutrophil Count 8.4 X10^3/uL (2.0-7.7); Basophil# 0.05 X10^3/uL; Basophil% 0.4 % (0-1); Eosinophil# 0.21 X10^3/uL; Eosinophils% 1.7 % (0-5); Hematocrit 40.1 % (40-54); Hemoglobin 14.1 g/dl (13.0-16.5); Lymphocyte # 2.43 X10^3/ul (4.0); Lymphocyte % 19.8 % (19-41); Mean Corp Hgb Conc 35.2 g/gl (32-36); Mean Corpuscular Hgb 30.3 pg (27.0-32.0); Mean Corpuscular Volume 86.2 fL (80-94); Mean Platelet Vol. 9.4 fl (6.2-12.0); Monocyte# 1.24 X10^3/uL; Monocyte% 10.1 % (0-10); Neutrophil # 8.35 X10^3/uL (2.7-7.7); Neutrophil % 67.8 % (47-70); Platelet Count 353 K/mm3 (150-450); RBC Distribution Width CV 15.1 % (11.6-14.6); RBC Distribution Width SD 47.3 fl (35.1-43.9); Red Blood Count 4.65 M/mm3 (4.6-6.2); White Blood Count 12.3 K/mm3 (4.4-11.0)
[2018-09-26] MEDS: LORazepam 0.5 MG Tablet PO (12:12)
[2018-09-26 12:20] LABS: POSITIVE COUNT NO; POSITIVE DIFFERENTIAL NO; POSITIVE MORPHOLOGY NO
[2018-09-26 12:36] LABS: Anion Gap 8 (5-15); BUN 19 mg/dL (7-18); BUN/Creat Ratio 16.1 RATIO (10-20); Calcium,Total 10.2 mg/dL (8.5-10.1); Chloride 96 mmol/L (98-107); Creatinine, Serum 1.18 mg/dL (0.70-1.30); EST Glomerular Filtration Rate 64 mL/min (>60); Est Glom Filt Rate - Afr Amer 78 mL/min (>60); Estimated Creatinine Clearance 49.22 ml/min; Glucose 121 mg/dL (74-106); Potassium 4.3 mmol/L (3.5-5.1); Sodium Level 131 mmol/L (136-145)
[2018-09-26 12:55] VITALS: BP 164/118; BP 165/106; BP 183/94; PULSE 70; PULSE 73; PULSE 89
[2018-09-26 13:30] VITALS: BP 167/95; PULSE 70; RESP 19; O2SAT 96
--- NOTE | 2018-09-26 13:30 | ED.DEP ---
ED Disposition - Plan for ED Patient: Instructions: ED Stress React, ED Insomnia Prescriptions: Fluoxetine HCl [Prozac] 20 mg PO DAILY #30 capsule Referrals: Counseling,Center [GROUP OF PHYSICIANS] - Scooby Leahy MD [STAFF PHYSICIAN] -
[2018-09-26 14:28] VITALS: BP 175/102; PULSE 77; RESP 20; O2SAT 97
--- NOTE | 2018-09-26 14:29 | ED.RN ---
REVIEWED D/C INSTRUCTIONS, FOLLOW UP CARE, PRESCRIPTION, AND S/S THAT WOULD WARRANT A RETURN TO THE ED WITH PT. PT VERBALIZED AN UNDERSTANDING AND DENIES FURTHER QUESTIONS FOR THIS RN. PT SKIN P/W/D, RESP EVEN AND UNLABORED, PT A&O X 3, NO DISTRESS NOTED. PT AMBULATED OUT OF ED, GAIT STEADY.
== END 2018-09-26 14:30 | disposition home or self-care (01) ==
LOC: ED 11:59
PROVIDERS: Emergency Provider Emergency Medicine
DX: F41.9 Anxiety disorder, unspecified (principal); J44.9 Chronic obstructive pulmonary disease, unspecified; K21.9 Gastro-esophageal reflux disease without esophagitis; I10 Essential (primary) hypertension; Z72.0 Tobacco use
CPT/HCPCS: 80048; 84484; 85025; 93005; 96360; 99285; J7040; A4216

== ENCOUNTER → 2018-10-05 | Outpatient (CLI) | payer MEDICARE, MEDICAID, SELFPAY ==
[2018-09-26 11:27] VITALS: BMI 24.5
[2018-10-05 12:37] LABS: Absolute Lymphocyte Count 2.53 X10^3/ul (0.83-4.51); Basophil# 0.04 X10^3/uL; Basophil% 0.5 % (0-1); Eosinophil# 0.64 X10^3/uL; Eosinophils% 7.8 % (0-5); Hematocrit 40.6 % (40-54); Hemoglobin 13.4 g/dl (13.0-16.5); Lymphocyte # 2.53 X10^3/ul (4.0); Lymphocyte % 30.9 % (19-41); Mean Corpuscular Hgb 29.3 pg (27.0-32.0); Mean Corpuscular Volume 88.6 fL (80-94); Mean Platelet Vol. 9.8 fl (6.2-12.0); Monocyte# 0.92 X10^3/uL; Monocyte% 11.2 % (0-10); Neutrophil # 4.04 X10^3/uL (2.7-7.7); Neutrophil % 49.5 % (47-70); Platelet Count 298 K/mm3 (150-450); RBC Distribution Width CV 15.2 % (11.6-14.6); RBC Distribution Width SD 49.7 fl (35.1-43.9); Red Blood Count 4.58 M/mm3 (4.6-6.2); White Blood Count 8.2 K/mm3 (4.4-11.0)
[2018-10-05 12:43] LABS: ALB/GLOB Ratio 0.9 RATIO (0.9-2.4); AST(SGOT) 14 U/L (15-37); Alanine Aminotransfer ALT/SGPT 17 U/L (16-61); Albumin, Serum 3.5 g/dL (3.2-5.0); Alkaline Phosphatase 78 U/L (45-117); Anion Gap 7 (5-15); BUN 18 mg/dL (7-18); BUN/Creat Ratio 12.4 RATIO (10-20); Calcium,Total 9.2 mg/dL (8.5-10.1); Chloride 103 mmol/L (98-107); Cholesterol 198 mg/dL (200); Creatinine, Serum 1.45 mg/dL (0.70-1.30); EST Glomerular Filtration Rate 51 mL/min (>60); Est Glom Filt Rate - Afr Amer 61 mL/min (>60); Globulin 3.7 g/dL (2.2-4.2); Glucose 80 mg/dL (74-106); High Density Lipoprotein 51 mg/dL; Potassium 4.1 mmol/L (3.5-5.1); Protein, Total 7.2 g/dL (6.4-8.2); Sodium Level 140 mmol/L (136-145); Triglycerides 71 mg/dL; Very Low Density Lipoprotein 14 mg/dL (5-40)
[2018-10-05 12:44] LABS: POSITIVE COUNT NO; POSITIVE DIFFERENTIAL NO; POSITIVE MORPHOLOGY NO
== END | disposition home or self-care (01) ==
PROVIDERS: PCP Internal Medicine; Visit Provider Internal Medicine
DX: I10 Essential (primary) hypertension (principal); K21.9 Gastro-esophageal reflux disease without esophagitis
CPT/HCPCS: 36415; 80053; 80061; 85025

== ENCOUNTER 2018-10-16 20:18 | Emergency (ER) | payer MEDICARE, MEDICAID, SELFPAY ==
[2018-10-12 13:35] VITALS: BMI 24.5
[2018-10-16 20:30] VITALS: BP 162/97; PULSE 100; RESP 21; TEMP 36.8; O2SAT 96; BMI 24.4
--- NOTE | 2018-10-16 20:36 | ED.RN ---
PER EMS PT APARTMENT COMPLEX FLAGGED FOR BED BUGS. PT ESCORTED INTO [facility] ROOM ON ARRIVAL TO ED, SHOWERED AND PLACED IN CLEAN GOWN. PT BELONGINGS DOUBLE BAGGED. PT TOLERATED WELL. SOCKS AND WARM BLANKET GIVEN.
--- NOTE | 2018-10-16 20:46 | RAD_ITS ---
STUDY: X-RAY CHEST REASON FOR EXAM: Male, 72 years old. Weakness and generalized illness TECHNIQUE: PA and lateral COMPARISON: 02/02/2018 FINDINGS: The lungs demonstrate chronic lung changes. No focal lung consolidation unchanged. There is no demonstrated pleural abnormality. Normal size heart. Normal mediastinum and gisselle. Normal visualized pulmonary arteries. There is atherosclerotic calcification of the aortic arch with tortuosity. There are diffuse degenerative changes of the visualized thoracic spine. There is plate fixation of the left clavicle. There is no demonstrated abnormality of the visualized soft tissue structures of the upper abdomen. RAD/Chest PA and Lateral IMPRESSION: Negative x-ray examination of the chest for acute pulmonary disease. No significant radiographic changes. Electronically Signed: Luis Enrique Blankenship, at 22:12 EDT Tel , Service support ,
--- NOTE | 2018-10-16 20:46 | EKG12_ITS ---
Test Reason : GENERAL ILLNESS Blood Pressure : / mmHG Vent. Rate : 095 BPM Atrial Rate : 095 BPM P-R Int : 194 ms QRS Dur : 088 ms QT Int : 358 ms P-R-T Axes : 044 -22 035 degrees QTc Int : 449 ms Normal sinus rhythm Inferior infarct , age undetermined, cannot be excluded Abnormal ECG Confirmed by DIPAK SPRINGER, JENNIFER ([id number]), news editor KARINE KABA ([id number]) on 10/19/2018 11:56:48 AM Referred By: Confirmed By:JENNIFER QUESADA MD
[2018-10-16 21:33] LABS: Absolute Lymphocyte Count 2.02 X10^3/ul (0.83-4.51); Absolute Neutrophil Count 11.5 X10^3/uL (2.0-7.7); Basophil# 0.03 X10^3/uL; Basophil% 0.2 % (0-1); Eosinophil# 0.16 X10^3/uL; Eosinophils% 1.1 % (0-5); Hematocrit 41.2 % (40-54); Hemoglobin 14.6 g/dl (13.0-16.5); Lymphocyte # 2.02 X10^3/ul (4.0); Lymphocyte % 13.3 % (19-41); Mean Corp Hgb Conc 35.4 g/gl (32-36); Mean Corpuscular Hgb 29.8 pg (27.0-32.0); Mean Corpuscular Volume 84.1 fL (80-94); Mean Platelet Vol. 9.1 fl (6.2-12.0); Monocyte# 1.38 X10^3/uL; Monocyte% 9.1 % (0-10); Neutrophil # 11.54 X10^3/uL (2.7-7.7); POSITIVE COUNT NO; POSITIVE DIFFERENTIAL NO; POSITIVE MORPHOLOGY NO; Platelet Count 403 K/mm3 (150-450); RBC Distribution Width CV 14.5 % (11.6-14.6); White Blood Count 15.2 K/mm3 (4.4-11.0)
[2018-10-16 21:46] LABS: AST(SGOT) 15 U/L (15-37); Alanine Aminotransfer ALT/SGPT 15 U/L (16-61); Albumin, Serum 4.1 g/dL (3.2-5.0); Alkaline Phosphatase 91 U/L (45-117); Anion Gap 8 (5-15); BUN 11 mg/dL (7-18); BUN/Creat Ratio 9.1 RATIO (10-20); Calcium,Total 9.1 mg/dL (8.5-10.1); Chloride 94 mmol/L (98-107); Creatinine, Serum 1.21 mg/dL (0.70-1.30); EST Glomerular Filtration Rate 63 mL/min (>60); Est Glom Filt Rate - Afr Amer 76 mL/min (>60); Globulin 3.9 g/dL (2.2-4.2); Glucose 109 mg/dL (74-106); Lipase 63 U/L (73-393); Potassium 3.3 mmol/L (3.5-5.1); Sodium Level 127 mmol/L (136-145)
[2018-10-16 22:04] LABS: Alcohol, Blood (Medical)-Serum < 3.0 mg/dL
--- NOTE | 2018-10-16 22:34 | ED.DCSUM_ITS ---
- ER Visit Summary Date of Service: 10/16/18 Chief Complaint: Feeling bad History of Present Illness: The patient is a 72 M who states that today he feels very weak tired and dizzy. He had an episode of vomiting and a little episode of diarrhea and has had a slightly sore throat after vomiting. He states he has not had any alcohol for 6 weeks. He states that he feels chilled but no fevers. Patient cannot provide any other symptoms. Physical Examination: Afebrile vital signs are stable Gen: Well-nourished well-developed Head: Normocephalic atraumatic Eyes: Perrl EOMI ENT: TMs clear no rhinorrhea moist mucous membranes Neck: Supple no lymphadenopathy no JVD nontender CVS: Regular rate rhythm no murmurs normal S1-S2 Respiratory: No distress clear to auscultation bilaterally chest nontender Abdomen: Soft nontender nondistended normal bowel sounds no masses Back: Nontender Extremity: Nontender no edema Skin: Normal color no rash Neuro: alert orientated ?3 CN II-XII intact normal strength sensation Psych: Normal affect normal mood Test Results: Count elevated at 15. Sodium 127 potassium 3.3. Urinalysis normal alcohol level negative. Chest x-ray negative. Emergency Department Course and Treatment: She received a liter of fluids and Tylenol for a headache that he developed. At this point patient presents with fairly nonspecific complaints. The white count at 15 nonspecific in the setting of normal vital signs and no fever no focal source of infection. Patient will be encouraged to hydrate at home return if worsening or concerns. Impression: 1. Viral syndrome 2. Vomiting diarrhea This note was generated with [employer] dictation software. It may contain incorrect words, spelling, and punctuation that were not noted in review of the chart prior to signing ED Disposition - Plan for ED Patient: Disposition: Home or Assisted Living Instructions: VOMITING AND DIARRHEA, Nonspecific (Adult) Referrals: Jhonatan Zapien MD [STAFF PHYSICIAN] -
[2018-10-16] MEDS: Acetaminophen 500 MG Tablet 1000 MG PO (23:21)
[2018-10-16] MEDS: 0.9% Normal Saline 1,000 ML 1000 ML IV (23:21)
[2018-10-16 23:23] VITALS: BP 150/98; PULSE 91; RESP 16; O2SAT 95
[2018-10-16 23:25] LABS: Bacteria 0 SEEN /hpf (None Seen); Mucous, Urine 0 SEEN /hpf (<or=2+); Red Blood Cells-Urine 0 SEEN /hpf (0-5); Squamous Epithelial Cells - UA 0 SEEN /hpf (0-5)
[2018-10-16 23:59] LABS: Color, Urine Yellow (Yellow); Glucose, Dipstick Normal (Normal); Ketone-Dipstick Negative (Negative); Leukocyte Esterase-Dipstick 25 /ul (Negative); Nitrite-Dipstick Negative (Negative); Occult Blood-Urine Negative /ul (Negative); Protein-Dipstick Negative (Negative); Urine Bilirubin Dipstick Negative (Negative); Urine Clarity Sl. Cloudy (Clear); Urine Urobilinogen Normal (Normal)
[2018-10-17 00:12] LABS: Amorphous Sediment 1+; White Blood Cells 0-5 SEEN /hpf (0-5)
[2018-10-17 00:33] VITALS: BP 163/96; PULSE 85; RESP 16; O2SAT 96
--- NOTE | 2018-10-17 00:44 | ED.RN ---
PT CURRENTLY CALLING HIS SISTER TO FIND A RIDE HOME.
== END 2018-10-17 00:49 | disposition home or self-care (01) ==
PROVIDERS: Emergency Provider Emergency Medicine
DX: B34.9 Viral infection, unspecified (principal); R11.10 Vomiting, unspecified; R19.7 Diarrhea, unspecified; I10 Essential (primary) hypertension; F10.20 Alcohol dependence, uncomplicated; F41.9 Anxiety disorder, unspecified; F32.9 Major depressive disorder, single episode, unspecified; Z72.0 Tobacco use; Z79.899 Other long term (current) drug therapy
CPT/HCPCS: 71046; 80048; 80076; 80320; 81001; 83690; 84484; 85025; 93005; 96360; 99285; J7030; A4216; G0480

== ENCOUNTER → 2018-10-27 | Outpatient (CLI) | payer MEDICARE, MEDICAID, SELFPAY ==
[2018-10-16 20:30] VITALS: BMI 24.4
[2018-10-27 13:09] LABS: BUN 14 mg/dL (7-18); Glucose 87 mg/dL (74-106)
[2018-10-27 13:10] LABS: Anion Gap 9 (5-15); BUN/Creat Ratio 9.3 RATIO (10-20); Calcium,Total 9.2 mg/dL (8.5-10.1); Chloride 100 mmol/L (98-107); EST Glomerular Filtration Rate 49 mL/min (>60); Est Glom Filt Rate - Afr Amer 59 mL/min (>60); Potassium 4.1 mmol/L (3.5-5.1); Sodium Level 136 mmol/L (136-145)
== END | disposition home or self-care (01) ==
LOC: BIMLAB 10:05
PROVIDERS: Visit Provider Nurse Practitioner Family
DX: I10 Essential (primary) hypertension (principal)
CPT/HCPCS: 36415; 80048

== ENCOUNTER 2019-08-10 12:49 | Inpatient (IN) | payer MEDICARE, MEDICAID, SELFPAY ==
[2018-11-15 11:01] VITALS: BMI 25.0
[2019-08-10] VITALS (8 sets, daily range): BP systolic 107–173; BP diastolic 76–117; PULSE 89–108; RESP 16–18; TEMP 36.4–37.1; O2SAT 94–98; BMI 23.5; BMI 20.2
--- NOTE | 2019-08-10 13:09 | EKG12_ITS ---
Test Reason : FALL Blood Pressure : / mmHG Vent. Rate : 103 BPM Atrial Rate : 103 BPM P-R Int : 174 ms QRS Dur : 074 ms QT Int : 354 ms P-R-T Axes : 084 040 053 degrees QTc Int : 463 ms Sinus tachycardia Low voltage QRS Possible Inferior infarct , age undetermined Cannot rule out Anterior infarct , age undetermined Abnormal ECG Confirmed by GISSEL SPRINGER, AUBREY ([id number]), map editor KARINE KABA ([id number]) on 08/15/2019 10:53:49 AM Referred By: DEBBI Confirmed By:JERRI CHAUHAN MD
--- NOTE | 2019-08-10 13:10 | RAD_ITS ---
STUDY: X-RAY - LEFT FEMUR REASON FOR STUDY: Male, 73 years old. SOB PATIENT FELL. PAIN IN LEFT HIP, INTO LEFT FEMUR PER PATIENT. TECHNIQUE: 4 view(s) of the femur. COMPARISON: None. FINDINGS: Nondisplaced intertrochanteric fracture. There is diffuse soft tissue swelling of the thigh. RAD/Femur Min 2 Views IMPRESSION: There is a nondisplaced intertrochanteric fracture of the proximal femur. Soft tissue swelling. Electronically Signed: Tigre Borden, at 14:40 EDT , Service support ,
--- NOTE | 2019-08-10 13:11 | CT_ITS ---
STUDY: CT CERVICAL SPINE WITHOUT CONTRAST REASON FOR EXAM: Male, 73 years old. FALL RADIATION DOSAGE (If Supplied By Facility): CTDIvol = ( 21.80 ) mGy, DLP = ( 347.01 ) mGycm TECHNIQUE: High resolution transaxial imaging was performed without contrast material. Sagittal and coronal images were reconstructed. Individualized dose optimization techniques were used for this CT. COMPARISON: Comparison is made with prior examination dated January 17, 2017. FINDINGS: Normal craniovertebral junction. There are degenerative changes of the anterior atlantoaxial articulation. Normal odontoid process. There is an exaggerated cervical lordosis. Normal vertebral bodies and posterior osseous elements. C2-3: Normal endplates. Normal disc height and morphology. Normal central canal and intervertebral neuroforamina. C3-4: Marked degree of disc space narrowing and degeneration. There is evidence of a retrolisthesis of C3 on C4. C4-5: Moderate degree of disc space narrowing. C5-6: Moderate degree of disc space narrowing. Facet joint osteoarthritis and hypertrophy. C6-7: Moderate degree of disc space narrowing. C7-T1: Normal endplates. Normal disc height and morphology. Normal central canal and intervertebral neuroforamina. Calcification of the carotid bifurcations bilaterally. CT/Spine Cervical without Contras IMPRESSION: Multilevel degenerative changes, as described above. Exaggerated cervical lordosis. Mild degree of retrolisthesis of C3 on C4. Electronically Signed: Tigre Borden, at 14:38 EDT , Service support ,
--- NOTE | 2019-08-10 13:11 | CT_ITS ---
STUDY: CT BRAIN WITHOUT CONTRAST REASON FOR EXAM: Male, 73 years old. FALL RADIATION DOSAGE (If Supplied By Facility): CTDIvol = ( 44.99 ) mGy, DLP = ( 779.24 ) mGycm TECHNIQUE: Transaxial CT imaging of the brain was performed without administration of intravenous contrast material. Individualized dose optimization techniques were used for this CT. COMPARISON: Comparison is made with prior examination dated February 02, 2018. FINDINGS: Normal soft tissue structures. Normal calvarium. There is mild cerebral atrophy with widening of the extra-axial spaces and ventricular dilatation. There are areas of decreased attenuation within the white matter tracts of the supratentorial brain, consistent with microvascular disease changes. Stable lacunar infarcts in the basal ganglia bilaterally as well as in the insular cortex of the right temporal lobe. Normal brainstem. Normal cerebellum. There is no intracranial hemorrhage. There are no findings of an acute ischemic infarction. Atherosclerotic calcification of the vertebral arteries as well as the cavernous portions of the internal carotid arteries bilaterally. Normal visualized paranasal sinuses. CT/Brain/Head without Contrast IMPRESSION: Chronic involutional changes of the brain. Electronically Signed: Tigre Borden, at 14:35 EDT , Service support ,
--- NOTE | 2019-08-10 13:12 | ED.VIS.GEN ---
History of Present Illness Chief Complaint: Fall Narrative: This patient is a 73-year-old male who presents after a fall. He states his left leg gave out and he fell to the floor and side. He was unable to get up due to pain. He was on the floor for about 2 hours. A neighbor found him and called EMS. He complains of isolated left thigh and hip pain. He does not believe he hit his head. He denies loss of consciousness. No neck chest abdominal or back pain. No injury to any other extremities. He did state that he felt weak while he was on the floor. He denies recent illness otherwise. No fever cough vomiting or diarrhea. Patient denies being on anticoagulation Past Medical History - Allergies and Home Meds Allergies/Adverse Reactions: Allergies bupropion HCl [From Wellbutrin] Allergy (Verified 08/10/19 12:50) Unknown quetiapine fumarate [From Seroquel] Allergy (Verified 08/10/19 12:50) Unknown trazodone Adverse Reaction (Verified 08/10/19 12:50) Other Primary Care Physician: Jhonatan Zapien MD [Primary Care Provider] - Past Medical History: - - Anxiety, depression, hypertension Surgical History: - - Umbilical hernia repair, bowel resection secondary to small bowel obstruction, left shoulder surgery status post trauma, tonsillectomy, ileocecal resection via CT scan evaluation Smoking Status: Current every day smoker - Family History Maternal Family History: Family History (Last Reviewed 11/15/18 @ 11:05 by Ramya Stanton) Other Anemia Anxiety Breast cancer Cancer Depression Hypertension Osteoporosis Family History: Reports: Cancer, Hypertension Paternal Family History: Family History (Last Reviewed 11/15/18 @ 11:05 by Ramya Stanton) Other Anemia Anxiety Breast cancer Cancer Depression Hypertension Osteoporosis Family History: Reports: Cancer, Hypertension Review of Systems All systems negative except as indicated General: Denies: Fever Eyes: Denies: Visual changes - bilaterally ENT: Denies: Bilateral ear pain Cardiovascular: Denies: Chest pain Respiratory: Denies: Dyspnea Gastrointestinal: Denies: Abdominal pain, Nausea, Vomiting, Diarrhea Musculoskeletal: Reports: Extremity Pain. Denies: Back pain Skin: Denies: Rash Neurological: Denies: Headache Hematologic: Denies: Easy bruising, Easy bleeding Physical Exam Vital Signs/Narrative: Vital Signs Temp Pulse Resp BP Pulse Ox 08/10/19 12:52 104 H 16 137/76 H 98 08/10/19 12:50 97.6 F L 103 H 17 137/76 H 98 Inital Vital Signs reviewed: Yes General: Well nourished Head: Normocephalic Eyes: EOMI ENT: Moist mucous membranes Neck: Supple Cardiovascular: - - Heart is regular tachycardia Respiratory: No distress, CTA bilaterally Abdomen: Soft, Nontender, Nondistended Extremities: - - Limited painful range of motion of the left hip no deformity no shortening or rotation, active full range of motion of the bilateral upper extremities and right lower extremity without pain Skin: Normal color Neurological: Alert, Oriented x3, - - GCS 15 with no focal or lateralizing neurological deficits Psychological: Normal affect Diagnostic/Tx/Re-eval 08/10/19 13:09 Chest 1 View (Portable) [RAD] Stat 08/10/19 13:10 Femur Min 2 Views [RAD] Stat 08/10/19 13:11 Brain/Head without Contrast [CT] Stat CT Cervical [Spine Cervical without Contras] [CT] Stat Laboratory Results 08/10/19 08/10/19 08/10/19 13:31 13:31 13:31 WBC 24.2 H RBC 4.68 Hgb 14.2 Hct 40.2 MCV 85.9 MCH 30.3 MCHC 35.3 RDW Std Deviation 41.5 RDW Coeff of Dariela 13.2 Plt Count 379 MPV 8.6 Immature Gran % (Auto) 0.700 Neut % (Auto) 86.5 H Lymph % (Auto) 5.9 L Cecil % (Auto) 6.7 Eos % (Auto) 0.0 Baso % (Auto) 0.2 Absolute Neuts (auto) 21.0 H Absolute Lymphs (auto) 1.43 Nucleated RBC % 0 PT 13.3 INR 1.1 Sodium 121 L Potassium 3.9 Chloride 84 L Carbon Dioxide 24.0 Anion Gap 13 BUN 8 Creatinine 0.87 Estim Creat Clear Calc 70.70 Est GFR (MDRD) Af Amer 110 Est GFR (MDRD) Non-Af 91 BUN/Creatinine Ratio 9.2 L Glucose 103 Calcium 9.7 - Medical Decision Making Patient was given IV fluids. EKG shows sinus tachycardia at a rate of 103. Labs returned notable for white blood cell count of 24,000. Given that he was down for couple of hours CPK is pending. I also added on a lactic acid. Imaging pending at time of this dictation including chest x-ray, femur x-ray, CT of the head and that. Patient signed out to the oncoming physician to follow-up on results and make final disposition although I do believe the patient will likely require hospitalization. ED Disposition - Plan for ED Patient: Diagnosis: Fall, Left hip pain, Leukocytosis Referrals: Jhonatan Zapien MD [Primary Care Provider] -
[2019-08-10 13:40] LABS: Absolute Lymphocyte Count 1.43 X10^3/uL (0.83-4.51); Basophil# 0.04 X10^3/uL; Basophil% 0.2 % (0-1); Hematocrit 40.2 % (40-54); Hemoglobin 14.2 g/dL (13.0-16.5); Lymphocyte # 1.43 X10^3/ul (4.0); Lymphocyte % 5.9 % (19-41); Mean Corp Hgb Conc 35.3 g/dL (32-36); Mean Corpuscular Hgb 30.3 pg (27.0-32.0); Mean Corpuscular Volume 85.9 fL (80-94); Mean Platelet Vol. 8.6 fl (6.2-12.0); Monocyte# 1.63 X10^3/uL; Monocyte% 6.7 % (0-10); NRBC Flagged by Analyzer 0 % (0-5); Neutrophil # 20.96 X10^3/uL (2.7-7.7); Neutrophil % 86.5 % (47-70); POSITIVE DIFFERENTIAL YES; Platelet Count 379 K/mm3 (150-450); RBC Distribution Width CV 13.2 % (11.6-14.6); RBC Distribution Width SD 41.5 fl (35.1-43.9); Red Blood Count 4.68 M/mm3 (4.6-6.2); White Blood Count 24.2 K/mm3 (4.4-11.0)
[2019-08-10 13:45] LABS: Differential Indicated SCAN CRITERIA MET
[2019-08-10] MEDS: Morphine 4 MG/ML Syringe IV (13:49)
[2019-08-10] MEDS: 0.9% Normal Saline 1,000 ML 1000 ML IV (13:50)
[2019-08-10] MEDS: Ondansetron 4 MG/2 ML Vial IV (13:50)
[2019-08-10 13:51] LABS: Anion Gap 13 (5-15); BUN 8 mg/dL (7-18); BUN/Creat Ratio 9.2 RATIO (10-20); Calcium,Total 9.7 mg/dL (8.5-10.1); Chloride 84 mmol/L (98-107); Creatinine, Serum 0.87 mg/dL (0.70-1.30); EST Glomerular Filtration Rate 91 mL/min (>60); Est Glom Filt Rate - Afr Amer 110 mL/min (>60); Glucose 103 mg/dL (74-106); Potassium 3.9 mmol/L (3.5-5.1); Sodium Level 121 mmol/L (136-145)
[2019-08-10 13:52] LABS: International Normalized Ratio 1.1; Prothrombin Time (Protime)PT. 13.3 SECONDS (11.7-14.9)
[2019-08-10 13:57] LABS: CPK Total, Creatine Kinase 225 U/L (39-308)
[2019-08-10 14:05] LABS: Differential Comment SCANNED
--- NOTE | 2019-08-10 14:05 | RAD_ITS ---
STUDY: X-RAY CHEST REASON FOR EXAM: Male, 73 years old. SOB PATIENT FELL. PAIN IN LEFT HIP, INTO LEFT FEMUR PER PATIENT. TECHNIQUE: Single AP portable view of the chest. COMPARISON: Comparison is made with prior examination dated October 16, 2018. FINDINGS: Hyperinflation. Scattered calcified granulomas. No acute abnormality is seen. There is no demonstrated pleural abnormality. Normal size heart. Normal mediastinum and gisselle. Normal visualized pulmonary arteries. There is atherosclerotic calcification of the aortic arch with tortuosity. There are diffuse degenerative changes of the visualized thoracic spine. Status post open reduction and internal fixation of the left clavicle. Moderate sized hiatal hernia. RAD/Chest 1 View (Portable) IMPRESSION: Hyperinflation. No acute abnormality is seen. Prior open reduction and internal fixation of the left clavicular fracture. Electronically Signed: Tigre Borden, at 14:39 EDT , Service support ,
[2019-08-10 14:59] LABS: Lactic Acid 2.1 mmol/L (0.4-1.9)
--- NOTE | 2019-08-10 15:01 | CM.ED ---
Social Work Consult: Discharge Planning Informant: Nursing staff Nursing staff voicing concerns of patient being able to care for self. Patient is also reporting to be out of medications. Chief Complaint: Fall at home. Neighbor found patient on floor when going to check on patient. Marital/Social History: Single Living Situation: Lives alone with a cat in a 1-story home with a few steps to enter. Prior level of functioning: Independent, does not use any DME. Patient reporting to have a medical alert but to not use it. Resources/Supports: Lawnmower Mechanic, Lucía Salmeron through [facility]. Patient agreeable to this licensed master social worker updating Lucía with patient admission to the hospital. Telephone call to sammy Castrejon left. Patient unsure if patient has PASSPORT services. Patient stating to have had one visit from an aide at one time and no other visits. Per chart review patient with history of CCN referral but was unable to be established due to [facility] being unable to get in contact with patient. Patient stating to be a but to not currently utilize any benefits. Mental Health History/Treatment: Depression and Anxiety. Patient stating to have been in counseling for 30 years but currently is not in any active counseling services. Patient stating to have taken medication for anxiety and depression in the past. Patient stating that counseling was helpful. Patient stating to currently being doing fine. Patient denies any suicidal thoughts or intent. Substance Abuse: Per chart review, Alcohol abuse, did not address with patient at this time. Pharmacy: [facility] pre packages medications for patient and deliveries to patient home every . Patient stating to be unsure why patient is out of medication. This licensed master social worker exploring with patient possible reasons for why patient is out of medications. Patient then admitting to have maybe taken more then patient should have. 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 Home Health/SNF history: Patient stating to have had 2-3 day stay in the Transitional Care Unit in the past. Patient unsure of home health services. Mental Status Exam: A&Ox3 Assessment: Met with patient in room. Introduced self as well as licensed master social worker role. Patient is agreeable to speaking with this licensed master social worker. This licensed master social worker broaching topic of nursing concern for patient being able to care for self in the home. Patient stating to not be concerned about being able to care for self. Patient aware that plan is for patient to be admitted to the hospital. Patient then asking if patient will be able to return to home tomorrow, this licensed master social worker advising patient that it is unclear at this time if patient will be cleared for discharge tomorrow, patient voicing understanding to this. Patient presenting with a positive affect and engaged in conversation with this licensed master social worker. Active support and listening provided. Updated Dr. Salmeron and nursing on social work assessment. Plan is for patient to be admitted to acute. Social Work to continue to follow as needed. Evy Maradiaga MSW, SCOTTIE
--- NOTE | 2019-08-10 15:31 | HP.PCM_ITS ---
History of Present Illness Date of Admission: 08/10/19 Chief Complaint: fall. hip pain. The patient is a 73 year old M presents with fall. He felt dizzy today then fell. He had left hip pain. Found to have had a left intertrochanteric fracture of the proximal femur. Dr. Gaspar, of orthopaedics, was contacted, and would see the patient in consultation. Patient denies hitting his head.[] Past Medical History Past Medical History (Chronic Problems): Chronic Problems (Last Reviewed 11/15/18 @ 11:05 by Ramya Stanton) Anxiety (Chronic) Dizziness (Chronic) IBS (irritable bowel syndrome) (Chronic) GERD (gastroesophageal reflux disease) (Chronic) Depression (Chronic) Hypertension (Chronic) Chronic obstructive pulmonary disease (COPD) (Chronic) COPD exacerbation (Chronic) Generalized weakness (Chronic) Essential hypertension (Chronic) Wernicke encephalopathy (Chronic) Alcohol abuse (Chronic) Seizure disorder (Chronic) Tobacco abuse (Chronic) Medical History: Medical History (Last Reviewed 08/10/19 @ 15:[address] Mario Gill, DO) History of kidney stones (Acute) Z87.442 IBS (irritable bowel syndrome) (Chronic) K58.9 Seizures (Acute) R56.9 last one was years ago GERD (gastroesophageal reflux disease) (Chronic) K21.9 History of pneumonia (Acute) Z87.01 Depression (Chronic) F32.9 Anemia (Acute) D64.9 Hypertension (Chronic) I10 Anxiety F41.9 History of alcohol abuse F10.11 History of fracture of clavicle Z87.81 Vitamin D deficiency E55.9 Allergies bupropion HCl [From Wellbutrin] Allergy (Verified 08/10/19 12:50) Unknown quetiapine fumarate [From Seroquel] Allergy (Verified 08/10/19 12:50) Unknown trazodone Adverse Reaction (Verified 08/10/19 12:50) Other Home Medications: Ambulatory Orders Medication Instructions Recorded Amlodipine [Norvasc] 5 mg PO DAILY 08/10/19 Buspirone HCl 10 mg PO BID 08/10/19 Fluoxetine HCl [Prozac] 20 mg PO DAILY 08/10/19 Lamotrigine [Lamictal] 200 mg PO DAILY 08/10/19 Lisinopril/Hydrochlorothiazide 1 tab PO DAILY 08/10/19 [Lisinopril-Hctz 10-12.5 mg Tab] Omeprazole 40 mg PO DAILY 08/10/19 Risperidone 1 mg PO QHS 08/10/19 Trihexyphenidyl HCl 2 mg PO BID 08/10/19 Surgical History: Surgical History (Last Reviewed 08/10/19 @ 15:[address] Mario Gill DO) History of intestinal surgery Z98.890 due to blockage History of tonsillectomy Z90.89 Surgical History: - - Umbilical hernia repair, bowel resection secondary to small bowel obstruction, left shoulder surgery status post trauma, tonsil lectomy, ileocecal resection via CT scan evaluation Psychiatric History: Anxiety Smoking Status: Current every day smoker Tobacco Use: Cigarettes - *Family History Maternal Family History: Family History (Last Reviewed 08/10/19 @ 15:[address] Mario Gill DO) Other Anemia Anxiety Breast cancer Cancer Depression Hypertension Osteoporosis History Items: Cancer, Hypertension Paternal Family History: Family History (Last Reviewed 08/10/19 @ 15:[address] Mario Gill DO) Other Anemia Anxiety Breast cancer Cancer Depression Hypertension Osteoporosis History Items: Cancer, Hypertension Review of Systems Constitutional: Reports: Anorexia, Night Sweats Eyes: Reports: Blurred vision, Double vision HEENT: Denies: Head Aches, Sinus Congestion, Sinus Drainage Cardiovascular: Denies: Chest Pain, Palpitations Respiratory: Denies: Cough, Shortness of breath at rest, Sputum production Gastrointestinal: Denies: Abdominal Pain, Nausea, Vomiting Genitourinary: Denies: Dysuria Musculoskeletal: Denies: Joint Pain, Joint Tenderness Skin: Denies: Rash, Wounds Neurological: Denies: Numbness, Tingling, Focal weakness Psychiatric: Denies: Anxiety, Depression Endocrine: Reports: Change in Body Habitus. Denies: Heat/ Cold Intolerance Hematologic/ Lymphatic: Denies: Easy Bruising, Easy Bleeding, Hx of blood clot Comment: All review of systems were negative except as mentioned above in the history of present illness and the other review of systems. VTE Information - Inpt Only VTE Present on Admission: No VTE Mechan Device Prophylaxis: SCD's, None VTE Pharm Prophylaxis ordered?: No Reason prophylaxis not ordered:: Procedure Not Indicated Patient Problems: Active and Suspected Problems (Last Reviewed 11/15/18 @ 11:05 by Ramya Stanton) Fall (Acute) Left hip pain (Acute) Leukocytosis (Acute) - Physical Exam Vitals/I&O's: Vital Signs Temp Pulse Resp BP Pulse Ox 36.4 C L 98 18 173/98 H 95 08/10/19 15:19 08/10/19 15:19 08/10/19 15:19 08/10/19 15:19 08/10/19 15:19 Oxygen Delivery Method Room Air Weight: 68.1 kg Body Mass Index (BMI) 23.5 Finger Stick Blood Glucose 152 General: Alert, Cooperative, No apparent distress HEENT: Atraumatic, Normocephalic Oral: Moist Mucosa, No Gingival or Mucosal Lesions/ Ulcerations Neck: No Nodes, Trachea Midline Lungs: Clear to auscultation, Normal air movement, No rhonchi, No wheeze, No rales, Diminished Cardiovascular: Regular rate, Regular Rhythm, Normal S1, Normal S2, No murmurs Abdomen: Bowel Sounds Present, Soft, Non Tender, Non-Distended, No Hepato- splenomegaly Extremities: No edema, No Calf Tenderness Skin: No rashes, No breakdown Musculoskeletal: No Muscle Wasting, Cachexia Neurological: Muscle tone normal, Sensory exam intact to light touch and pain Psych/Mental Status: Normal Affect, Appropriate Laboratory Results 08/10/19 13:31: WBC 24.2 H, RBC 4.68, Hgb 14.2, Hct 40.2, MCV 85.9, MCH 30.3, MCHC 35.3, RDW Std Deviation 41.5, RDW Coeff of Dariela 13.2, Plt Count 379, MPV 8.6, Immature Gran % (Auto) 0.700, Neut % (Auto) 86.5 H, Lymph % (Auto) 5.9 L, Beckham % (Auto) 6.7, Eos % (Auto) 0.0, Baso % (Auto) 0.2, Absolute Neuts (auto) 21.0 H, Absolute Lymphs (auto) 1.43, Nucleated RBC % 0, Differential Comment SCANNED 08/10/19 13:31: PT 13.3, INR 1.1 08/10/19 13:31: Sodium 121 L, Potassium 3.9, Chloride 84 L, Carbon Dioxide 24.0, Anion Gap 13, BUN 8, Creatinine 0.87, Estim Creat Clear Calc 70.70, Est GFR (MDRD) Af Amer 110, Est GFR (MDRD) Non-Af 91, BUN/Creatinine Ratio 9.2 L, Glucose 103, Calcium 9.7 08/10/19 13:31: Total Creatine Kinase 225 08/10/19 13:31: Ethyl Alcohol 4.0 08/10/19 14:15: Lactic Acid 2.1 H* Assessment/Plan All Active Problems (Last Reviewed 11/15/18 @ 11:05 by Ramya Stanton) Fall (Acute) Left hip pain (Acute) Leukocytosis (Acute) History of kidney stones (Acute) Seizures (Acute) History of pneumonia (Acute) Anemia (Acute) Sepsis (Resolved) Pneumonia (Resolved) Disequilibrium (Acute) Cholelithiasis (Resolved) Decreased appetite (Resolved) 1. Left femur intertrochanteric fracture * bed rest * medical optimization prior to surgery. sodium to be improved. anticipate he will be ready by 08/09 * Otherwise medically cleared for surgery per NQSIP * check 25 OH d level. * pain control 2. Hyponatremia * asymptomatic * likely 2/2 HCTZ, which will be held * NS IVF * reevaluate 3. VTE prophylaxis: SCDs for now. Medical prophylaxis post operative 4. Advanced care planning, DNRCCA per the patient. Inpatient E&M: 77495 Init Hosp L3
--- NOTE | 2019-08-10 16:12 | RAD_ITS ---
STUDY: X-RAY - ABDOMEN/PELVIS REASON FOR EXAM: Male, 73 years old. POST TRACTION PLACEMENT TECHNIQUE: Single frontal view of the abdomen COMPARISON: None. FINDINGS: Normal visualized lung bases. There is an unremarkable bowel gas pattern. There is no demonstrated free abdominal air. The visualized liver, spleen and kidneys are grossly normal in size and morphology. Right lower quadrant surgical clips are noted. Normal soft tissue structures. Normal visualized osseous structures. No left hip fractures not well seen. RAD/Abdomen Single View (Portable) IMPRESSION: Unremarkable radiographs of the abdomen and pelvis. Electronically Signed: Chris Bay, at 18:47 EDT Tel , Service support ,
--- NOTE | 2019-08-10 16:12 | RAD_ITS ---
STUDY: X-RAY - PELVIS REASON FOR EXAM: Male, 73 years old. POST TRACTION PLACEMENT TECHNIQUE: One view of the pelvis was obtained. COMPARISON: Earlier same day. FINDINGS: Acute nondisplaced angulated femoral neck fracture with interval decrease in impaction. The remainder the visualized osseous structures are intact. The hip joints are normally aligned. There is mild soft tissue swelling around the fracture site. IMPRESSION: Acute nondisplaced angulated femoral neck fracture with interval decrease in impaction. Electronically Signed: Chris Bay, at 19:33 EDT Tel , Service support , RAD/Pelvis 1 or 2 Views
[2019-08-10] MEDS: 0.9% Normal Saline 1,000 ML 150 ML IV (16:30)
[2019-08-10] MEDS: oxyCODONE 5 MG Tablet 10 MG PO (17:08)
[2019-08-10] MEDS: amLODIPine 5 MG Tablet PO (17:08)
[2019-08-10] MEDS: lamoTRIgine 100 MG Tablet 200 MG PO (17:09)
[2019-08-10] MEDS: Lisinopril 10 MG Tablet PO (17:09)
[2019-08-10 18:21] LABS: Reflex Lactate? Y
[2019-08-10 19:30] LABS: Lactic Acid 1.3 mmol/L (0.4-1.9)
[2019-08-10] MEDS: Acetaminophen 325 MG Tablet 650 MG PO (19:43)
[2019-08-10] MEDS: RisperiDONE 1 MG Tablet PO (22:24)
[2019-08-10] MEDS: TRIHEXYPHENIDYL HCL 2 MG TABLET PO (22:24)
[2019-08-10] MEDS: busPIRone 5 MG Tablet 10 MG PO (22:24)
[2019-08-11] VITALS (15 sets, daily range): BP systolic 86–150; BP diastolic 58–94; PULSE 83–97; RESP 16–18; TEMP 36.6–37.1; O2SAT 92–100; BMI 20.2
[2019-08-11] MEDS: 0.9% Saline Lock 10 ML Syringe IV ×3 (00:33→09:12)
[2019-08-11] MEDS: oxyCODONE 5 MG Tablet PO ×2 (03:36→20:27)
[2019-08-11] MEDS: Ondansetron 4 MG/2 ML Vial IV (03:39)
[2019-08-11 06:45] LABS: Absolute Lymphocyte Count 1.41 X10^3/uL (0.83-4.51); Absolute Neutrophil Count 9.3 X10^3/uL (2.0-7.7); Basophil# 0.01 X10^3/uL; Basophil% 0.1 % (0-1); Eosinophil# 0.01 X10^3/uL; Eosinophils% 0.1 % (0-5); Hematocrit 32.5 % (40-54); Hemoglobin 11.7 g/dL (13.0-16.5); Lymphocyte # 1.41 X10^3/ul (4.0); Lymphocyte % 11.5 % (19-41); Mean Corpuscular Hgb 30.8 pg (27.0-32.0); Mean Corpuscular Volume 85.5 fL (80-94); Mean Platelet Vol. 8.7 fl (6.2-12.0); Monocyte# 1.44 X10^3/uL; Monocyte% 11.8 % (0-10); NRBC Flagged by Analyzer 0 % (0-5); Neutrophil # 9.33 X10^3/uL (2.7-7.7); Neutrophil % 76.1 % (47-70); Platelet Count 289 K/mm3 (150-450); RBC Distribution Width CV 13.8 % (11.6-14.6); RBC Distribution Width SD 42.8 fl (35.1-43.9); White Blood Count 12.3 K/mm3 (4.4-11.0)
[2019-08-11 07:15] LABS: AST(SGOT) 23 U/L (15-37); Alanine Aminotransfer ALT/SGPT 25 U/L (16-61); Alkaline Phosphatase 85 U/L (45-117); Anion Gap 7 (5-15); BUN 9 mg/dL (7-18); BUN/Creat Ratio 11.9 RATIO (10-20); Bilirubin, Direct 0.16 mg/dL (0.00-0.30); Calcium,Total 8.5 mg/dL (8.5-10.1); Chloride 91 mmol/L (98-107); Creatinine, Serum 0.75 mg/dL (0.70-1.30); EST Glomerular Filtration Rate 108 mL/min (>60); Est Glom Filt Rate - Afr Amer 130 mL/min (>60); Estimated Creatinine Clearance 54.45 ml/min; Globulin 3.1 g/dL (2.2-4.2); Glucose 111 mg/dL (74-106); Protein, Total 6.1 g/dL (6.4-8.2); Sodium Level 124 mmol/L (136-145)
[2019-08-11 08:10] LABS: Vitamin D,25 Hydroxy 18.6 ng/mL
[2019-08-11] MEDS: Pantoprazole Sodium 40 MG Tablet PO (09:07)
[2019-08-11] MEDS: Morphine 2 MG/ML Syringe IV (09:12)
--- NOTE | 2019-08-11 10:02 | PCM.PN.HOSP ---
Patient Problems: Active and Suspected Problems (Last Reviewed 08/10/19 @ 15:[address] Mario Gill, DO) Fall (Acute) Left hip pain (Acute) Leukocytosis (Acute) Reason for Visit: Left hip fxr. Subjective: Still with pain in hip. No other acute issues overnight. Vitals/I&O's: Vital Signs Temp Pulse Resp BP Pulse Ox 36.8 C 91 18 121/76 H 93 08/11/19 09:01 08/11/19 09:01 08/11/19 09:01 08/11/19 09:01 08/11/19 09:01 Oxygen Delivery Method Room Air Weight: 58.513 kg Body Mass Index (BMI) 20.2 Finger Stick Blood Glucose 152 Intake and Output for Last 24 Hours 08/09/19 08/10/19 08/11/19 23:59 23:59 23:59 Intake Total 1400 / 1400 1000 / 1000 Output Total 850 / 850 275 / 275 Balance 550 / 550 725 / 725 General: Alert, No apparent distress HEENT: Atraumatic, Normocephalic Oral: Moist Mucosa, No Gingival or Mucosal Lesions/ Ulcerations Neck: No Nodes, Trachea Midline Lungs: Clear to auscultation, Normal air movement, No rhonchi, No wheeze Cardiovascular: Regular rate, Regular Rhythm, Normal S1, Normal S2, No murmurs Abdomen: Bowel Sounds Present, Soft, Non Tender, Non-Distended, No Hepato-splenomegaly Extremities: No edema, No Calf Tenderness Musculoskeletal: Cachexia Psych/Mental Status: Normal Affect, Appropriate Laboratory Results 08/10/19 13:31: WBC 24.2 H, RBC 4.68, Hgb 14.2, Hct 40.2, MCV 85.9, MCH 30.3, MCHC 35.3, RDW Std Deviation 41.5, RDW Coeff of Dariela 13.2, Plt Count 379, MPV 8.6, Immature Gran % (Auto) 0.700, Neut % (Auto) 86.5 H, Lymph % (Auto) 5.9 L, Metcalfe % (Auto) 6.7, Eos % (Auto) 0.0, Baso % (Auto) 0.2, Absolute Neuts (auto) 21.0 H, Absolute Lymphs (auto) 1.43, Nucleated RBC % 0, Differential Comment SCANNED 08/10/19 13:31: PT 13.3, INR 1.1 08/10/19 13:31: Sodium 121 L, Potassium 3.9, Chloride 84 L, Carbon Dioxide 24.0, Anion Gap 13, BUN 8, Creatinine 0.87, Estim Creat Clear Calc 70.70, Est GFR (MDRD) Af Amer 110, Est GFR (MDRD) Non-Af 91, BUN/Creatinine Ratio 9.2 L, Glucose 103, Calcium 9.7 08/10/19 13:31: Total Creatine Kinase 225 08/10/19 13:31: Ethyl Alcohol 4.0 08/10/19 14:15: Lactic Acid 2.1 H* 08/10/19 17:30: Blood Type A POSITIVE, Antibody Screen NEGATIVE 08/10/19 18:53: Lactic Acid 1.3 08/11/19 06:24: WBC 12.3 H, RBC 3.80 L, Hgb 11.7 L, Hct 32.5 L, MCV 85.5, MCH 30.8, MCHC 36.0, RDW Std Deviation 42.8, RDW Coeff of Dariela 13.8, Plt Count 289, MPV 8.7, Immature Gran % (Auto) 0.400, Neut % (Auto) 76.1 H, Lymph % (Auto) 11.5 L, Metcalfe % (Auto) 11.8 H, Eos % (Auto) 0.1, Baso % (Auto) 0.1, Absolute Neuts (auto) 9.3 H, Absolute Lymphs (auto) 1.41, Nucleated RBC % 0 08/11/19 06:24: Sodium 124 L, Potassium 4.0, Chloride 91 L, Carbon Dioxide 26.0, Anion Gap 7, BUN 9, Creatinine 0.75, Estim Creat Clear Calc 54.45, Est GFR (MDRD) Af Amer 130, Est GFR (MDRD) Non-Af 108, BUN/Creatinine Ratio 11.9, Glucose 111 H, Calcium 8.5, Total Bilirubin 0.60, Direct Bilirubin 0.16, AST 23, ALT 25, Alkaline Phosphatase 85, Total Protein 6.1 L, Albumin 3.0 L, Globulin 3.1 08/11/19 06:24: Vitamin D 25-Hydroxy 18.6 Current Medications Acetaminophen (Tylenol) 650 mg PO Q6H PRN PRN PRN Reason: Pain Score 1-10/Temp > 100.7 F Last Admin: 08/10/19 19:43 Dose: 650 mg Documented by: Amlodipine Besylate (Norvasc) 5 mg PO DAILY [facility] Last Admin: 08/11/19 08:58 Dose: Not Given Documented by: Buspirone HCl (Buspar) 10 mg PO BID [facility] Last Admin: 08/11/19 08:57 Dose: Not Given Documented by: Dextrose (D50w Syringe) 0 gm IV X1 PRN; Protocol PRN Reason: Hypoglycemia Fluoxetine HCl (Prozac) 20 mg PO DAILY [facility] Last Admin: 08/11/19 08:58 Dose: Not Given Documented by: Glucagon () 1 mg IM .X1 PRN PRN Reason: Hypoglycemia Sodium Chloride () 250 mls @ 15 mls/hr IV .[id number] PRN PRN Reason: Saline Flush Sodium Chloride () 250 mls @ 15 mls/hr IV .[id number] PRN PRN Reason: Additional IVPB Infusion Cefazolin Sodium 2 gm/ Sodium (Chloride) 120 mls @ 240 mls/hr IV SEND TO OR W/PATIENT ONE Stop: 08/11/19 10:29 Lamotrigine (Lamictal) 200 mg PO DAILY [facility] Last Admin: 08/11/19 08:57 Dose: Not Given Documented by: Lisinopril (Zestril) 10 mg PO DAILY [facility] Last Admin: 08/11/19 08:59 Dose: Not Given Documented by: Morphine Sulfate () 2 mg IV Q3H PRN PRN PRN Reason: breakthrough pain Last Admin: 08/11/19 09:12 Dose: 2 mg Documented by: Ondansetron HCl (Zofran) 4 mg IV Q8H PRN PRN PRN Reason: NAUSEA/VOMITING Last Admin: 08/11/19 03:39 Dose: 4 mg Documented by: Oxycodone HCl (Oxyir) 5 mg PO Q4H PRN PRN PRN Reason: Pain Score 4-5/10 Last Admin: 08/11/19 03:36 Dose: 5 mg Documented by: Oxycodone HCl (Oxyir) 10 mg PO Q4H PRN PRN PRN Reason: Pain Score 6-10/10 Last Admin: 08/10/19 17:08 Dose: 10 mg Documented by: Pantoprazole Sodium (Protonix) 40 mg PO DAILY [facility] Last Admin: 08/11/19 09:07 Dose: 40 mg Documented by: Risperidone (Risperdal) 1 mg PO QHS [facility] Last Admin: 08/10/19 22:24 Dose: 1 mg Documented by: Sodium Chloride () 10 - 40 ml IV UD PRN PRN Reason: SALINE FLUSH Last Admin: 08/11/19 09:12 Dose: 10 ml Documented by: Trihexyphenidyl HCl (Trihexyphenidyl Hcl) 2 mg PO BID [facility] Last Admin: 08/11/19 08:58 Dose: Not Given Documented by: STROKE Vital Signs/Narrative: Vital Signs Temp Pulse Resp BP Pulse Ox 08/11/19 09:01 36.8 C 91 18 121/76 H 93 Medical Necessity - Tobacco Use Smoking Status: Current every day smoker Tobacco Use: Cigarettes Assessment/Plan All Active Problems (Last Reviewed 08/10/19 @ 15:[address] Mario Gill, DO) Fall (Acute) Left hip pain (Acute) Leukocytosis (Acute) History of kidney stones (Acute) Seizures (Acute) History of pneumonia (Acute) Anemia (Acute) Sepsis (Resolved) Pneumonia (Resolved) Disequilibrium (Acute) Cholelithiasis (Resolved) Decreased appetite (Resolved) 1. Left femur intertrochanteric fracture bed rest Otherwise medically cleared for surgery per NQSIP pain control 2. Hyponatremia asymptomatic likely 2/2 HCTZ, which will be held improved consider SIADH eval if continues to remain elevated in the future 3. Vitamin D deficiency 25 OH D 18, goal is 50. start ergocalciferol 4. VTE prophylaxis: SCDs for now. Medical prophylaxis post operative 5. Advanced care planning, DNRCCA per the patient. 6. moderate protein malnutrition: nutrition eval Inpatient E&M: 33793 Subs Hosp L2
[2019-08-11] MEDS: amLODIPine 5 MG Tablet PO (11:01)
[2019-08-11] MEDS: Lisinopril 10 MG Tablet PO (11:01)
[2019-08-11] MEDS: lamoTRIgine 100 MG Tablet 200 MG PO (11:01)
[2019-08-11] MEDS: TRIHEXYPHENIDYL HCL 2 MG TABLET PO ×2 (11:01→21:16)
--- NOTE | 2019-08-11 11:11 | NURSING ---
aWare per char Kelly anestherologist requesting norvasc, lamictal, lisinopril, and trihexypheridyl be given- administered. report given to char kelly ac, pt transported to ac
--- NOTE | 2019-08-11 11:59 | CASEMGMT ---
Social Work SW received a VM from pt [facility] Luc[facility] and update given as pt previously gave permission to contact her. Pt in surgery at this time for hip fracture. Will followup with pt tomorrow for d/c planning. JEFFERSON Dang
--- NOTE | 2019-08-11 12:00 | RAD_ITS ---
STUDY: X-RAY - PELVIS AND LEFT HIP REASON FOR EXAM: Male, 73 years old. FX REPAIR TECHNIQUE: 3 views of the pelvis and hip were obtained intraoperatively. COMPARISON: None. FINDINGS: Intraoperative imaging provided for ORIF of the left femoral neck fracture utilizing an intramedullary johann and compression screw fixation device. RAD/Hip Min 2 Views (Portable) IMPRESSION: Intraoperative imaging provided for ORIF of the left femoral neck fracture. There is good alignment. Electronically Signed: Tigre Borden, at 13:40 EDT , Service support ,
--- NOTE | 2019-08-11 12:05 | CON.PCM_ITS ---
Reason for Consult Date of Consultation: 08/11/19 Reason for Consultation: left hip fracture History of Present Illness: The patient is a 73 year old M ground level fall in kitchen. landing on left hip. denies other injury. Past Medical History Past Medical History (Chronic Problems): Chronic Problems (Last Reviewed 08/10/19 @ 15:[address] Mario Gill, DO) Anxiety (Chronic) Dizziness (Chronic) IBS (irritable bowel syndrome) (Chronic) GERD (gastroesophageal reflux disease) (Chronic) Depression (Chronic) Hypertension (Chronic) Chronic obstructive pulmonary disease (COPD) (Chronic) COPD exacerbation (Chronic) Generalized weakness (Chronic) Essential hypertension (Chronic) Wernicke encephalopathy (Chronic) Alcohol abuse (Chronic) Seizure disorder (Chronic) Tobacco abuse (Chronic) Medical History: Medical History (Last Reviewed 08/10/19 @ 15:[address] Mario Gill DO) History of kidney stones (Acute) Z87.442 IBS (irritable bowel syndrome) (Chronic) K58.9 Seizures (Acute) R56.9 last one was years ago GERD (gastroesophageal reflux disease) (Chronic) K21.9 History of pneumonia (Acute) Z87.01 Depression (Chronic) F32.9 Anemia (Acute) D64.9 Hypertension (Chronic) I10 Anxiety F41.9 History of alcohol abuse F10.11 History of fracture of clavicle Z87.81 Vitamin D deficiency E55.9 Allergies bupropion HCl [From Wellbutrin] Allergy (Verified 08/10/19 12:50) Unknown quetiapine fumarate [From Seroquel] Allergy (Verified 08/10/19 12:50) Unknown trazodone Adverse Reaction (Verified 08/10/19 12:50) Other Home Medications: Ambulatory Orders Medication Instructions Recorded Amlodipine [Norvasc] 5 mg PO DAILY 08/10/19 Buspirone HCl 10 mg PO BID 08/10/19 Fluoxetine HCl [Prozac] 20 mg PO DAILY 08/10/19 Lamotrigine [Lamictal] 200 mg PO DAILY 08/10/19 Lisinopril/Hydrochlorothiazide 1 tab PO DAILY 08/10/19 [Lisinopril-Hctz 10-12.5 mg Tab] Omeprazole 40 mg PO DAILY 08/10/19 Risperidone 1 mg PO QHS 08/10/19 Trihexyphenidyl HCl 2 mg PO BID 08/10/19 Surgical History: Surgical History (Last Reviewed 08/10/19 @ 15:[address] Mario Gill DO) History of intestinal surgery Z98.890 due to blockage History of tonsillectomy Z90.89 Surgical History: - - Umbilical hernia repair, bowel resection secondary to small bowel obstruction, left shoulder surgery status post trauma, tonsillectomy, ileocecal resection via CT scan evaluation Psychiatric History: Anxiety Smoking Status: Current every day smoker Tobacco Use: Cigarettes - *Family History Maternal Family History: Family History (Last Reviewed 08/10/19 @ 15:[address] Mario Gill DO) Other Anemia Anxiety Breast cancer Cancer Depression Hypertension Osteoporosis History Items: Cancer, Hypertension Paternal Family History: Family History (Last Reviewed 08/10/19 @ 15:[address] Mario Gill DO) Other Anemia Anxiety Breast cancer Cancer Depression Hypertension Osteoporosis History Items: Cancer, Hypertension Patient Problems: Active and Suspected Problems (Last Reviewed 08/10/19 @ 15:[address] Mario Gill DO) Fall (Acute) Left hip pain (Acute) Leukocytosis (Acute) - Physical Exam Vitals/I&O's: Vital Signs Temp Pulse Resp BP Pulse Ox 98.4 F 94 18 102/73 94 08/11/19 10:58 08/11/19 10:58 08/11/19 10:58 08/11/19 10:58 08/11/19 10:58 Oxygen Delivery Method Room Air Weight: 129 lb Body Mass Index (BMI) 20.2 Finger Stick Blood Glucose 152 Intake and Output for Last 24 Hours 08/09/19 08/10/19 08/11/19 23:59 23:59 23:59 Intake Total 1400 / 1400 1025 / 1025 Output Total 850 / 850 425 / 425 Balance 550 / 550 600 / 600 Extremities: - - No open wounds compartments soft Laboratory Results 08/10/19 13:31: WBC 24.2 H, RBC 4.68, Hgb 14.2, Hct 40.2, MCV 85.9, MCH 30.3, MCHC 35.3, RDW Std Deviation 41.5, RDW Coeff of Dariela 13.2, Plt Count 379, MPV 8.6, Immature Gran % (Auto) 0.700, Neut % (Auto) 86.5 H, Lymph % (Auto) 5.9 L, Dillon % (Auto) 6.7, Eos % (Auto) 0.0, Baso % (Auto) 0.2, Absolute Neuts (auto) 21.0 H, Absolute Lymphs (auto) 1.43, Nucleated RBC % 0, Differential Comment SCANNED 08/10/19 13:31: PT 13.3, INR 1.1 08/10/19 13:31: Sodium 121 L, Potassium 3.9, Chloride 84 L, Carbon Dioxide 24.0, Anion Gap 13, BUN 8, Creatinine 0.87, Estim Creat Clear Calc 70.70, Est GFR (MDRD) Af Amer 110, Est GFR (MDRD) Non-Af 91, BUN/Creatinine Ratio 9.2 L, Glucose 103, Calcium 9.7 08/10/19 13:31: Total Creatine Kinase 225 08/10/19 13:31: Ethyl Alcohol 4.0 08/10/19 14:15: Lactic Acid 2.1 H* 08/10/19 17:30: Blood Type A POSITIVE, Antibody Screen NEGATIVE 08/10/19 18:53: Lactic Acid 1.3 08/11/19 06:24: WBC 12.3 H, RBC 3.80 L, Hgb 11.7 L, Hct 32.5 L, MCV 85.5, MCH 30.8, MCHC 36.0, RDW Std Deviation 42.8, RDW Coeff of Dariela 13.8, Plt Count 289, MPV 8.7, Immature Gran % (Auto) 0.400, Neut % (Auto) 76.1 H, Lymph % (Auto) 11.5 L, Dillon % (Auto) 11.8 H, Eos % (Auto) 0.1, Baso % (Auto) 0.1, Absolute Neuts (auto) 9.3 H, Absolute Lymphs (auto) 1.41, Nucleated RBC % 0 08/11/19 06:24: Sodium 124 L, Potassium 4.0, Chloride 91 L, Carbon Dioxide 26.0, Anion Gap 7, BUN 9, Creatinine 0.75, Estim Creat Clear Calc 54.45, Est GFR (MDRD) Af Amer 130, Est GFR (MDRD) Non-Af 108, BUN/Creatinine Ratio 11.9, Glucose 111 H, Calcium 8.5, Total Bilirubin 0.60, Direct Bilirubin 0.16, AST 23, ALT 25, Alkaline Phosphatase 85, Total Protein 6.1 L, Albumin 3.0 L, Globulin 3.1 08/11/19 06:24: Vitamin D 25-Hydroxy 18.6 Current Medications Acetaminophen (Tylenol) 650 mg PO Q6H PRN PRN PRN Reason: Pain Score 1-10/Temp > 100.7 F Last Admin: 08/10/19 19:43 Dose: 650 mg Documented by: Amlodipine Besylate (Norvasc) 5 mg PO DAILY [facility] Last Admin: 08/11/19 11:01 Dose: 5 mg Documented by: Buspirone HCl (Buspar) 10 mg PO BID [facility] Last Admin: 08/11/19 08:57 Dose: Not Given Documented by: Dextrose (D50w Syringe) 0 gm IV X1 PRN; Protocol PRN Reason: Hypoglycemia Ergocalciferol (Vitamin D) 50,000 unit PO Q7D [facility] Last Admin: 08/11/19 11:12 Dose: Not Given Documented by: Fluoxetine HCl (Prozac) 20 mg PO DAILY [facility] Last Admin: 08/11/19 08:58 Dose: Not Given Documented by: Glucagon () 1 mg IM .X1 PRN PRN Reason: Hypoglycemia Sodium Chloride () 250 mls @ 15 mls/hr IV .[id number] PRN PRN Reason: Saline Flush Sodium Chloride () 250 mls @ 15 mls/hr IV .[id number] PRN PRN Reason: Additional IVPB Infusion Lamotrigine (Lamictal) 200 mg PO DAILY [facility] Last Admin: 08/11/19 11:01 Dose: 200 mg Documented by: Lisinopril (Zestril) 10 mg PO DAILY [facility] Last Admin: 08/11/19 11:01 Dose: 10 mg Documented by: Morphine Sulfate () 2 mg IV Q3H PRN PRN PRN Reason: breakthrough pain Last Admin: 08/11/19 09:12 Dose: 2 mg Documented by: Ondansetron HCl (Zofran) 4 mg IV Q8H PRN PRN PRN Reason: NAUSEA/VOMITING Last Admin: 08/11/19 03:39 Dose: 4 mg Documented by: Oxycodone HCl (Oxyir) 5 mg PO Q4H PRN PRN PRN Reason: Pain Score 4-5/10 Last Admin: 08/11/19 03:36 Dose: 5 mg Documented by: Oxycodone HCl (Oxyir) 10 mg PO Q4H PRN PRN PRN Reason: Pain Score 6-10/10 Last Admin: 08/10/19 17:08 Dose: 10 mg Documented by: Pantoprazole Sodium (Protonix) 40 mg PO DAILY [facility] Last Admin: 08/11/19 09:07 Dose: 40 mg Documented by: Risperidone (Risperdal) 1 mg PO QHS [facility] Last Admin: 08/10/19 22:24 Dose: 1 mg Documented by: Sodium Chloride () 10 - 40 ml IV UD PRN PRN Reason: SALINE FLUSH Last Admin: 08/11/19 09:12 Dose: 10 ml Documented by: Trihexyphenidyl HCl (Trihexyphenidyl Hcl) 2 mg PO BID [facility] Last Admin: 08/11/19 11:01 Dose: 2 mg Documented by: Assessment/Plan All Active Problems (Last Reviewed 08/10/19 @ 15:[address] Mario Gill, DO) Fall (Acute) Left hip pain (Acute) Leukocytosis (Acute) History of kidney stones (Acute) Seizures (Acute) History of pneumonia (Acute) Anemia (Acute) Sepsis (Resolved) Pneumonia (Resolved) Disequilibrium (Acute) Cholelithiasis (Resolved) Decreased appetite (Resolved) basicervical left femoral neck fracture risk benefits alternatives reviewed for left hip trochanteric femoral nailing. Proceed as is medically cleared.
[2019-08-11] MEDS: Cefazolin 2 GM in 0.9% Normal Saline 100 ML IV (12:11)
[2019-08-11] MEDS: Bupiv/Epi 0.5% Mpf 30 ML Vial (13:00)
--- NOTE | 2019-08-11 13:28 | OP.PCM_ITS ---
Report of Operation Date of Procedure: 08/11/19 Description of Surgical Findings:: Preoperative diagnosis: left hip intertrochanteric femur fracture Postoperative diagnosis: Same Procedure: Cephalo-medullary fixation left hip Implants: Synthes short nail 11 mm diameter 105 mm helical blade 40 mm screw Anesthesia: General EBL: 50 Complications: None Condition: Stable to PACU Indication for procedure: 73-year-old male patient with ground-level fall sustaining injury to left hip. fractures demonstrated intertrochanteric femur fracture on the left risk benefits and alternatives were reviewed including risk of bleeding infection nerve, artery, bone, tissue damage, blood clot need for further surgery and continued pain. Procedure: Patient met in the preoperative holding area once again the operative extremity was identified by both patient and physician and was marked. Patient was met by anesthesia and IV was started she was brought back to the to the operating room anesthesia was started. She was then positioned on the fracture table all bony prominences were well-padded. She was then positioned with abduction internal rotation and traction and fluoroscopy was brought in to ensure that an adequate reduction could be performed. Patient was then prepped and draped in usual sterile fashion and timeout was called to ensure the proper patient procedure and extremity were being contemplated. Fluoroscopy was used to carmel the tip of the greater trochanter and a 3 fingerbreadth incision was made 2 finger breaths proximal to the tip of the greater trochanter. Was carried carried down through the skin and subcutaneous tissue as well as the gluteal fascia. Guidepin was then inserted through the tip of the greater trochanter directed towards the level of lesser trochanter this was checked in both AP and lateral projections. An opening reamer was performed. Following this was the insertion of the nail the appropriate height jig was used and a triple trocar sleeve was advanced to the skin and a stab incision was made at the trocar was inserted to the level of the bone and a guidepin was placed into the femoral neck and head checked on both AP and lateral projections. This was then measured and appropriately sized helical blade was inserted the nail was locked proximally the fracture was compressed and a locking screw was placed distally the same incision was extended slightly distally to allow the insertion of the trocar for the transverse screw. This was then drilled and measured under fluoroscopy and the appropriate size screw was inserted. Vital AP and lateral projections were saved to the PACS system of the entire construct the wounds were thoroughly irrigated the fascia was closed with #1 [id number] Vicryl followed by 2-0 Vicryl in the subcutaneous tissues followed by wood in the skin. 0.5% Marcaine with epinephrine was injected into the subcutaneous tis sues dressing was applied form of Xeroform 4 x 4 ABD and Ioban tape. Patient tolerated procedure well there is no intraoperative complications he was brought back to the PACU in stable condition.
[2019-08-11] MEDS: Cefazolin 1 GM/50 ML BAG IV ×2 (14:00→21:14)
--- NOTE | 2019-08-11 15:18 | CASEMGMT ---
RAMY CIFUENTES Note: [facility]. RAMY CIFUENTES unable to speak with pt today as he has been @ testing and surgery, but reportedly, [facility] not [facility] [place] [phone]. Clinicals faxed to . CM will continue to follow for care coordination, and SW anticipating pt will rehab/snf on dc. PT/OT evaluations when medically stable. Lanny RUIZN RN ACM
[2019-08-11] MEDS: 0.9% Normal Saline 1,000 ML 150 ML IV (19:15)
[2019-08-11] MEDS: busPIRone 5 MG Tablet 10 MG PO (21:14)
[2019-08-11] MEDS: Senna/Docusate Sodium 1 Tablet 2 TABLET PO (21:16)
[2019-08-11] MEDS: RisperiDONE 1 MG Tablet PO (21:17)
--- NOTE | 2019-08-12 02:04 | NURSING ---
Pt stood at side of bed for 3 minutes; x2 assist; tolerated poorly.
[2019-08-12 02:47] VITALS: BMI 20.2
[2019-08-12] MEDS: oxyCODONE 5 MG Tablet PO ×2 (02:51→10:36)
[2019-08-12 04:36] VITALS: BP 132/82; PULSE 88; RESP 16; TEMP 36.8; O2SAT 93
[2019-08-12] MEDS: Cefazolin 1 GM/50 ML BAG IV (05:04)
[2019-08-12 05:10] VITALS: BMI 20.2
[2019-08-12] MEDS: APIXABAN 2.5 MG TABLET PO ×2 (06:38→21:41)
[2019-08-12 06:54] LABS: Absolute Lymphocyte Count 1.79 X10^3/uL (0.83-4.51); Absolute Neutrophil Count 8.9 X10^3/uL (2.0-7.7); Basophil# 0.01 X10^3/uL; Basophil% 0.1 % (0-1); Eosinophil# 0.01 X10^3/uL; Eosinophils% 0.1 % (0-5); Hematocrit 25.7 % (40-54); Hemoglobin 8.9 g/dL (13.0-16.5); Lymphocyte # 1.79 X10^3/ul (4.0); Lymphocyte % 14.2 % (19-41); Mean Corp Hgb Conc 34.6 g/dL (32-36); Mean Corpuscular Hgb 30.6 pg (27.0-32.0); Mean Corpuscular Volume 88.3 fL (80-94); Monocyte# 1.78 X10^3/uL; Monocyte% 14.1 % (0-10); NRBC Flagged by Analyzer 0 % (0-5); Neutrophil # 8.94 X10^3/uL (2.7-7.7); Neutrophil % 71.1 % (47-70); POSITIVE DIFFERENTIAL YES; Platelet Count 244 K/mm3 (150-450); RBC Distribution Width CV 14.1 % (11.6-14.6); RBC Distribution Width SD 45.5 fl (35.1-43.9); Red Blood Count 2.91 M/mm3 (4.6-6.2); White Blood Count 12.6 K/mm3 (4.4-11.0)
[2019-08-12 07:00] LABS: Differential Indicated SCAN CRITERIA MET
[2019-08-12 07:15] LABS: Anion Gap 7 (5-15); BUN 10 mg/dL (7-18); BUN/Creat Ratio 12.5 RATIO (10-20); Calcium,Total 8.4 mg/dL (8.5-10.1); Chloride 97 mmol/L (98-107); EST Glomerular Filtration Rate 101 mL/min (>60); Est Glom Filt Rate - Afr Amer 122 mL/min (>60); Estimated Creatinine Clearance 68.06 ml/min; Glucose 103 mg/dL (74-106); Potassium 3.9 mmol/L (3.5-5.1); Sodium Level 128 mmol/L (136-145)
--- NOTE | 2019-08-12 07:23 | DCINST_ITS ---
Discharge Diet: No Restrictions Discharge Activity: Return to Normal Activity Weight Bearing Status: Weight bearing as tolerated Keep extremity elevated above heart level: Operative Extremity Call your doctor if you observe: Fever of 101 or Higher, Shortness of breath, Chest pain, Calf discomfort Additional Instructions: Begin daily showering warm water antibacterial soap postop day #3( 72hrs Post- operatively) and then daily. Leave the dressing on for 72 hours postoperatively then may remove prior to first shower and change dressing daily after this until no drainage for 2 consecutive days then may leave open to air. Wear compression stockings, may remove at night. Start physical therapy as directed in hospital. Call Dr. Gaspar's office with any concerns. Allergies/Adverse Reactions: Allergies bupropion HCl [From Wellbutrin] Allergy (Verified 08/10/19 12:50) Unknown quetiapine fumarate [From Seroquel] Allergy (Verified 08/10/19 12:50) Unknown trazodone Adverse Reaction (Verified 08/10/19 12:50) Other Medications to take at Discharge Amlodipine [Norvasc] 5 mg PO DAILY 08/10/19 Buspirone HCl 10 mg PO BID 08/10/19 Fluoxetine HCl [Prozac] 20 mg PO DAILY 08/10/19 Lamotrigine [Lamictal] 200 mg PO DAILY 08/10/19 Lisinopril/Hydrochlorothiazide [Lisinopril-Hctz 10-12.5 mg Tab] 1 tab PO DAILY 08/10/19 Omeprazole 40 mg PO DAILY 08/10/19 Risperidone 1 mg PO QHS 08/10/19 Trihexyphenidyl HCl 2 mg PO BID 08/10/19 Primary Care Physician: Jhonatan Zapien MD [Primary Care Provider] - Test Results: Test results from this visit will be discussed in further detail at your follow- up appointment, if applicable. Please Follow Up With: Soham Gaspar DO - 2 weeks
[2019-08-12 07:28] LABS: Differential Comment SCANNED
[2019-08-12 08:25] VITALS: O2SAT 94
[2019-08-12] MEDS: busPIRone 5 MG Tablet 10 MG PO ×2 (10:20→21:41)
[2019-08-12] MEDS: FLUoxetine 20 MG Capsule PO (10:20)
[2019-08-12] MEDS: Pantoprazole Sodium 40 MG Tablet PO (10:20)
[2019-08-12] MEDS: TRIHEXYPHENIDYL HCL 2 MG TABLET PO ×2 (10:20→21:41)
[2019-08-12] MEDS: Senna/Docusate Sodium 1 Tablet 2 TABLET PO ×2 (10:21→21:40)
[2019-08-12] MEDS: amLODIPine 5 MG Tablet PO (10:25)
[2019-08-12] MEDS: Lisinopril 10 MG Tablet PO (10:25)
[2019-08-12 10:38] VITALS: BP 91/62; PULSE 90; RESP 16; TEMP 36.4; O2SAT 93
[2019-08-12 10:44] VITALS: BMI 20.2
--- NOTE | 2019-08-12 11:02 | CASEMGMT ---
Social Work Assessment Referral Date: 08/11/2019 Date of Assessment: 08/12/2019 Reason for consult: SNF placement Informant: SW Personal Status: SW met with pt to complete initial assessment. SW introduced self and role at [facility]. Pt is alert and orientated x3. Pt states that he lives with one cat in a two story home with first floor set up. Pt states that he has 2-3 steps to enter and then 13 steps to take to get to second floor. Pt states that he was previously independent with ADLs and still drives. Pt states that his PCP is Dr. Zapien and Pharmacy is [place]. Pt states no DME. Substance Abuse Hx: Pt denied. SW spoke with pt specifically about ETOH abuse and pt denied. Mental Health Hx: Pt states he does have history of depression and anxiety. Pt states that he is on medications that are prescribed through his PCP. SW spoke with pt about going to SNF as it took 2 people to get pt to side of bed. APOORVA provided pt with list of SNF that accept pt's insurance and explained Medicare rules and guidelines. Pt states his first choice is TCU. Physician states pt is medically able to stay tonight and then discharge to SNF tomorrow. APOORVA placed a call to Micheline in TCU and provided referral. Micheline states she is able to accept pt tomorrow. APOORVA updated pt. Pt agreeable to TCU tomorrow. APOORVA placed green sheet on chart. APOORVA placed a call to pt's ESAU Castrejon at [facility] and left message updating her on discharge plan. RN updated on discharge plan. Plan: TCU tomorrow. Green sheet on chart. Ml Emanuel FIELD ARTILLERY RADAR OPERATOR, INFORMATICS PHARMACIST
--- NOTE | 2019-08-12 12:09 | CASEMGMT ---
RAMY CM Note: Clinical information refaxed to [facility] @ . Pt will remain @ [facility] for recovery as surgery was completed @ [facility]. Lanny RUIZN RN ACM
--- NOTE | 2019-08-12 13:14 | PN_ITS ---
Patient Problems: Active and Suspected Problems (Last Reviewed 08/10/19 @ 15:[address] Mario Gill, DO) Fall (Acute) Left hip pain (Acute) Leukocytosis (Acute) Subjective: Doing well, no issues overnight. Has a little bit of pain in his left hip but nothing significant Vitals/I&O's: Vital Signs Temp Pulse Resp BP Pulse Ox 97.6 F L 90 16 91/62 93 08/12/19 10:38 08/12/19 10:38 08/12/19 10:38 08/12/19 10:38 08/12/19 10:38 Oxygen Flow Rate (L/min) 2 Oxygen Delivery Method Room Air Weight: 129 lb Body Mass Index (BMI) 20.2 Finger Stick Blood Glucose 152 Intake and Output for Last 24 Hours 08/10/19 08/11/19 08/12/19 23:59 23:59 23:59 Intake Total 1400 / 1400 1485 / 1685 1490 / 1490 Output Total 850 / 850 600 / 750 625 / 625 Balance 550 / 550 885 / 935 865 / 865 General: Alert, Oriented x3, Cooperative, No apparent distress HEENT: Atraumatic, PERRLA, EOMI, Normocephalic Oral: Moist Mucosa Neck: Supple, No JVD Lungs: Clear to auscultation, Normal air movement, No rhonchi, No wheeze, No rales, Diminished Cardiovascular: Regular rate, Regular Rhythm, Normal S1, Normal S2, No murmurs Abdomen: Soft, Non Tender, Non-Distended, No Hepato-splenomegaly Extremities: No edema, Capillary Refill Less than 3 Seconds Skin: No rashes, No breakdown Neurological: Neuro grossly intact, Sensory exam intact to light touch and pain Psych/Mental Status: Normal Affect, Appropriate Laboratory Results 08/12/19 06:42: WBC 12.6 H, RBC 2.91 L, Hgb 8.9 L, Hct 25.7 L, MCV 88.3, MCH 30.6, MCHC 34.6, RDW Std Deviation 45.5 H, RDW Coeff of Dariela 14.1, Plt Count 244, MPV 9.0, Immature Gran % (Auto) 0.400, Neut % (Auto) 71.1 H, Lymph % (Auto) 14.2 L, [place] % (Auto) 14.1 H, Eos % (Auto) 0.1, Baso % (Auto) 0.1, Absolute Neuts (auto) 8.9 H, Absolute Lymphs (auto) 1.79, Nucleated RBC % 0, Differential Comment SCANNED, Diff Path Review [facility] 08/12/19 06:42: Sodium 128 L, Potassium 3.9, Chloride 97 L, Carbon Dioxide 24.0, Anion Gap 7, BUN 10, Creatinine 0.80, Estim Creat Clear Calc 68.06, Est GFR (MDRD) Af Amer 122, Est GFR (MDRD) Non-Af 101, BUN/Creatinine Ratio 12.5, Glucose 103, Calcium 8.4 L Current Medications Acetaminophen (Tylenol) 650 mg PO Q6H PRN PRN PRN Reason: Pain Score 1-10/Temp > 100.7 F Last Admin: 08/10/19 19:43 Dose: 650 mg Documented by: Amlodipine Besylate (Norvasc) 5 mg PO DAILY [facility] Last Admin: 08/12/19 10:25 Dose: 5 mg Documented by: Apixaban (Eliquis) 2.5 mg PO BID [facility] Last Admin: 08/12/19 06:38 Dose: 2.5 mg Documented by: Buspirone HCl (Buspar) 10 mg PO BID [facility] Last Admin: 08/12/19 10:20 Dose: 10 mg Documented by: Dextrose (D50w Syringe) 0 gm IV X1 PRN; Protocol PRN Reason: Hypoglycemia Ergocalciferol (Vitamin D) 50,000 unit PO Q7D [facility] Last Admin: 08/11/19 11:12 Dose: Not Given Documented by: Fluoxetine HCl (Prozac) 20 mg PO DAILY [facility] Last Admin: 08/12/19 10:20 Dose: 20 mg Documented by: Glucagon () 1 mg IM .X1 PRN PRN Reason: Hypoglycemia Hydromorphone HCl (Dilaudid Inj) 0.5 mg IV Q2H PRN PRN PRN Reason: Pain Score 6-10/10 Sodium Chloride () 250 mls @ 15 mls/hr IV .[id number] PRN PRN Reason: Saline Flush Sodium Chloride () 250 mls @ 15 mls/hr IV .[id number] PRN PRN Reason: Additional IVPB Infusion Lamotrigine (Lamictal) 200 mg PO DAILY [facility] Last Admin: 08/11/19 11:01 Dose: 200 mg Documented by: Lisinopril (Zestril) 10 mg PO DAILY [facility] Last Admin: 08/12/19 10:25 Dose: 10 mg Documented by: Morphine Sulfate () 2 mg IV Q3H PRN PRN PRN Reason: breakthrough pain Last Admin: 08/11/19 09:12 Dose: 2 mg Documented by: Ondansetron HCl (Zofran) 4 mg IV Q6H PRN PRN PRN Reason: NAUSEA Oxycodone HCl (Oxyir) 5 mg PO Q4H PRN PRN PRN Reason: Pain Score 4-5/10 Last Admin: 08/12/19 10:36 Dose: 5 mg Documented by: Oxycodone HCl (Oxyir) 10 mg PO Q4H PRN PRN PRN Reason: Pain Score 6-10/10 Last Admin: 08/10/19 17:08 Dose: 10 mg Documented by: Pantoprazole Sodium (Protonix) 40 mg PO DAILY [facility] Last Admin: 08/12/19 10:20 Dose: 40 mg Documented by: Risperidone (Risperdal) 1 mg PO QHS [facility] Last Admin: 08/11/19 21:17 Dose: 1 mg Documented by: Senna/Docusate Sodium (Senokot-S, Raya-Colace) 2 tablet PO BID [facility] Last Admin: 08/12/19 10:21 Dose: 2 tablet Documented by: Sodium Chloride () 10 - 40 ml IV UD PRN PRN Reason: SALINE FLUSH Last Admin: 08/11/19 09:12 Dose: 10 ml Documented by: Trihexyphenidyl HCl (Trihexyphenidyl Hcl) 2 mg PO BID [facility] Last Admin: 08/12/19 10:20 Dose: 2 mg Documented by: STROKE Vital Signs/Narrative: Vital Signs Temp Pulse Resp BP Pulse Ox 08/12/19 10:38 97.6 F L 90 16 91/62 93 Medical Necessity - Tobacco Use Smoking Status: Current every day smoker Tobacco Use: Cigarettes Assessment/Plan All Active Problems (Last Reviewed 08/10/19 @ 15:[address] Mario Gill DO) Fall (Acute) Left hip pain (Acute) Leukocytosis (Acute) History of kidney stones (Acute) Seizures (Acute) History of pneumonia (Acute) Anemia (Acute) Sepsis (Resolved) Pneumonia (Resolved) Disequilibrium (Acute) Cholelithiasis (Resolved) Decreased appetite (Resolved) 1. Left femur intratrochanteric fracture status post mechanical fall status post repair 08/11/2019 -Continue with pain management -PT/OT for possible SNF placement 2. Hyponatremia/HTN -Admission sodium was 121 and is now up to 128 -This is likely combination of HCTZ and dehydration -Received 1 L of IV fluids overnight and continue to hold hydrochlorothiazide -We will continue with Norvasc and lisinopril 3. Anxiety/depression/history of seizures -Stable -Continue with BuSpar, Prozac, risperidone, trihexyphenidyl -Continue with Lamictal 4. GERD -Stable -Continue with PPI DVT: Eliquis per Ortho Inpatient E&M: 15127 Subs Hosp L2
[2019-08-12 14:34] VITALS: BMI 20.2
[2019-08-12] MEDS: lamoTRIgine 100 MG Tablet 200 MG PO (15:48)
[2019-08-12 16:38] VITALS: BP 109/58; PULSE 92; RESP 16; TEMP 36.7; O2SAT 95
[2019-08-12 18:11] VITALS: BMI 20.2
[2019-08-12 21:20] VITALS: BP 108/67; PULSE 90; RESP 18; TEMP 36.7; O2SAT 94
[2019-08-12] MEDS: RisperiDONE 1 MG Tablet PO (21:41)
[2019-08-13 03:32] VITALS: BP 118/72; PULSE 87; RESP 18; TEMP 36.8; O2SAT 94
[2019-08-13 06:30] LABS: Hematocrit 23.5 % (40-54); Hemoglobin 8.3 g/dL (13.0-16.5); Mean Corp Hgb Conc 35.3 g/dL (32-36); Mean Corpuscular Volume 87.7 fL (80-94); Mean Platelet Vol. 8.9 fl (6.2-12.0); Platelet Count 248 K/mm3 (150-450); RBC Distribution Width SD 44.7 fl (35.1-43.9); Red Blood Count 2.68 M/mm3 (4.6-6.2); White Blood Count 10.9 K/mm3 (4.4-11.0)
[2019-08-13 06:50] LABS: Anion Gap 7 (5-15); BUN 10 mg/dL (7-18); BUN/Creat Ratio 13.2 RATIO (10-20); Calcium,Total 8.3 mg/dL (8.5-10.1); Chloride 95 mmol/L (98-107); Creatinine, Serum 0.76 mg/dL (0.70-1.30); EST Glomerular Filtration Rate 107 mL/min (>60); Est Glom Filt Rate - Afr Amer 129 mL/min (>60); Estimated Creatinine Clearance 54.45 ml/min; Glucose 103 mg/dL (74-106); Potassium 3.8 mmol/L (3.5-5.1); Sodium Level 128 mmol/L (136-145)
[2019-08-13 07:33] VITALS: O2SAT 94
[2019-08-13 08:49] VITALS: BP 91/55; PULSE 99; RESP 18; TEMP 36.7; O2SAT 99
[2019-08-13] MEDS: busPIRone 5 MG Tablet 10 MG PO (08:55)
[2019-08-13] MEDS: APIXABAN 2.5 MG TABLET PO (08:56)
[2019-08-13] MEDS: lamoTRIgine 100 MG Tablet 200 MG PO (08:56)
[2019-08-13] MEDS: FLUoxetine 20 MG Capsule PO (08:57)
[2019-08-13] MEDS: amLODIPine 5 MG Tablet PO (08:57)
[2019-08-13] MEDS: Senna/Docusate Sodium 1 Tablet 2 TABLET PO (08:57)
[2019-08-13] MEDS: Pantoprazole Sodium 40 MG Tablet PO (08:57)
[2019-08-13] MEDS: TRIHEXYPHENIDYL HCL 2 MG TABLET PO (08:58)
[2019-08-13] MEDS: Lisinopril 10 MG Tablet PO (08:58)
--- NOTE | 2019-08-13 09:01 | PCM.TXEXTCAR ---
- Diet 08/11/19 17:42 Diet: Regular Diet Type of Dietary Supplement:: [place] Breakfast Is pt able to select menu?: No - Routine Orders/Code Status Routine Lab Work: CBC, BMP Code Status: DNRCC-A - with intubation - Wound(s) left hip Wound Type: Surgical Incision left exterior thigh Wound Type: Surgical Incision - Therapies Weight Bearing: Weight bearing as tolerated Physical Therapy: Eval and Treat Occupational Therapy: Eval and Treat - Allergies/Procedures Done in Hospital Allergies/Adverse Reactions: Allergies bupropion HCl [From Wellbutrin] Allergy (Verified 08/10/19 12:50) Unknown quetiapine fumarate [From Seroquel] Allergy (Verified 08/10/19 12:50) Unknown trazodone Adverse Reaction (Verified 08/10/19 12:50) Other - Type of Care/Length of Stay Estimated LOS: Convalescent Care Less Than 30 days Type of Care Needed: Skilled Rehab Potential: Good Prognosis: Good - Additional Orders/Day of Discharge Day of Discharge: 08/13/19 - Follow Up Care Primary Care Physician: Jhonatan Zapien MD [Primary Care Provider] - Please follow up with your Primary Care Physician in: 1-2 weeks Please Follow Up With: Soham Gaspar DO - 2 weeks
--- NOTE | 2019-08-13 10:57 | DS.PCM_ITS ---
Discharge Date and Diagnosis - Problem List Patient Problems: Active and Suspected Problems (Last Reviewed 08/10/19 @ 15:[address] Mario Gill DO) Fall (Acute) Left hip pain (Acute) Leukocytosis (Acute) Date of Admission: 08/10/19 Date of Discharge: 08/13/19 - Primary Discharge Diagnosis Active and Suspected Problems (Last Reviewed 08/10/19 @ 15:[address] Mario Gill DO) Fall (Acute) Left hip pain (Acute) Leukocytosis (Acute) - Secondary Discharge Diagnosis Chronic Problems (Last Reviewed 08/10/19 @ 15:[address] Mario Gill DO) Anxiety (Chronic) Dizziness (Chronic) IBS (irritable bowel syndrome) (Chronic) GERD (gastroesophageal reflux disease) (Chronic) Depression (Chronic) Hypertension (Chronic) Chronic obstructive pulmonary disease (COPD) (Chronic) COPD exacerbation (Chronic) Generalized weakness (Chronic) Essential hypertension (Chronic) Wernicke encephalopathy (Chronic) Alcohol abuse (Chronic) Seizure disorder (Chronic) Tobacco abuse (Chronic) Hospital Course and Treatment Imaging Results: L Femur XR: IMPRESSION: There is a nondisplaced intertrochanteric fracture of the proximal femur. Soft tissue swelling. CT Brain: IMPRESSION: Chronic involutional changes of the brain. CT Cspine: IMPRESSION: Multilevel degenerative changes, as described above. Exaggerated cervical lordosis. Mild degree of retrolisthesis of C3 on C4. CXR: IMPRESSION: Hyperinflation. No acute abnormality is seen. Prior open reduction and internal fixation of the left clavicular fracture. Report of Operation Date of Procedure: 08/11/19 Description of Surgical Findings:: Preoperative diagnosis: left hip intertrochanteric femur fracture Postoperative diagnosis: Same Procedure: Cephalo-medullary fixation left hip Implants: Synthes short nail 11 mm diameter 105 mm helical blade 40 mm screw Anesthesia: General EBL: 50 Complications: None Condition: Stable to PACU Consults: Ortho Operations: - - Cephalo-medullary fixation of the left hip Procedures: None Summary of Care Provided: Per HPI: The patient is a 73 year old M presents with fall. He felt dizzy today then fell. He had left hip pain. Found to have had a left intertrochanteric fracture of the proximal femur. Dr. Gaspar, of orthopaedics, was contacted, and would see the patient in consultation. Patient denies hitting his head. Hospital Course: 1. Left femur intertrochanteric fracture status post mechanical fall status post repair 08/11/[id number]-enph-old male fell at home onto his left hip. He had surgery on 10 August and is been doing fairly well. Pain is controlled with oxycodone and he is ready to be transferred to the transitional care unit for further rehab. He is on Eliquis which will be continued at twice daily dosing for 10 to 14 days. He will need to follow-up with orthopedics in 2 weeks. Recommend a CBC to monitor his hemoglobin after surgery while on anticoagulation. 2. Hyponatremia/HTN-his sodium on admission was 121 and on the day of discharge was up to 128. His hydrochlorothiazide has been held and was discontinued on discharge, he is to continue with his lisinopril as well as his Norvasc. I recommend an outpatient BMP to monitor his sodium. 3. His other medical diagnoses were evaluated and his home medications were continued where appropriate Patient Problems: Active and Suspected Problems (Last Reviewed 08/10/19 @ 15:[address] Mario Gill, DO) Fall (Acute) Left hip pain (Acute) Leukocytosis (Acute) - Physical Exam Vitals/I&O's: Vital Signs Temp Pulse Resp BP Pulse Ox 98.0 F 99 18 91/55 L 99 08/13/19 08:49 08/13/19 08:49 08/13/19 08:49 08/13/19 08:49 08/13/19 08:49 Oxygen Flow Rate (L/min) 2 Oxygen Delivery Method Nasal Cannula Weight: 129 lb Body Mass Index (BMI) 20.2 Finger Stick Blood Glucose 152 Intake and Output for Last 24 Hours 08/11/19 08/12/19 08/13/19 23:59 23:59 23:59 Intake Total 1485 / 1685 1730 / 1730 Output Total 600 / 750 1025 / 1025 Balance 885 / 935 705 / 705 General: Alert, Oriented x3, Cooperative, No apparent distress HEENT: Atraumatic, PERRLA, EOMI, Normocephalic Oral: Moist Mucosa Neck: Supple, No JVD Lungs: Clear to auscultation, Normal air movement, No rhonchi, No wheeze, No rales, Diminished Cardiovascular: Regular rate, Regular Rhythm, Normal S1, Normal S2, No murmurs Abdomen: Soft, Non Tender, Non-Distended, No Hepato-splenomegaly Extremities: No edema, Capillary Refill Less than 3 Seconds Skin: No rashes, No breakdown, incisions CDI Neurological: Neuro grossly intact, Sensory exam intact to light touch and pain Psych/Mental Status: Normal Affect, Appropriate Laboratory Results 08/13/19 06:20: WBC 10.9, RBC 2.68 L, Hgb 8.3 L, Hct 23.5 L, MCV 87.7, MCH 31.0, MCHC 35.3, RDW Std Deviation 44.7 H, RDW Coeff of Dariela 14.0, Plt Count 248, MPV 8.9 08/13/19 06:20: Sodium 128 L, Potassium 3.8, Chloride 95 L, Carbon Dioxide 26.0, Anion Gap 7, BUN 10, Creatinine 0.76, Estim Creat Clear Calc 54.45, Est GFR (MDRD) Af Amer 129, Est GFR (MDRD) Non-Af 107, BUN/Creatinine Ratio 13.2, Glucose 103, Calcium 8.3 L Current Medications Acetaminophen (Tylenol) 650 mg PO Q6H PRN PRN PRN Reason: Pain Score 1-10/Temp > 100.7 F Last Admin: 08/10/19 19:43 Dose: 650 mg Documented by: Amlodipine Besylate (Norvasc) 5 mg PO DAILY [facility] Last Admin: 08/13/19 08:57 Dose: 5 mg Documented by: Apixaban (Eliquis) 2.5 mg PO BID [facility] Last Admin: 08/13/19 08:56 Dose: 2.5 mg Documented by: Buspirone HCl (Buspar) 10 mg PO BID [facility] Last Admin: 08/13/19 08:55 Dose: 10 mg Documented by: Dextrose (D50w Syringe) 0 gm IV X1 PRN; Protocol PRN Reason: Hypoglycemia Ergocalciferol (Vitamin D) 50,000 unit PO Q7D [facility] Last Admin: 08/11/19 11:12 Dose: Not Given Documented by: Fluoxetine HCl (Prozac) 20 mg PO DAILY [facility] Last Admin: 08/13/19 08:57 Dose: 20 mg Documented by: Glucagon () 1 mg IM .X1 PRN PRN Reason: Hypoglycemia Hydromorphone HCl (Dilaudid Inj) 0.5 mg IV Q2H PRN PRN PRN Reason: Pain Score 6-10/10 Sodium Chloride () 250 mls @ 15 mls/hr IV .[id number] PRN PRN Reason: Saline Flush Sodium Chloride () 250 mls @ 15 mls/hr IV .[id number] PRN PRN Reason: Additional IVPB Infusion Lamotrigine (Lamictal) 200 mg PO DAILY [facility] Last Admin: 08/13/19 08:56 Dose: 200 mg Documented by: Lisinopril (Zestril) 10 mg PO DAILY [facility] Last Admin: 08/13/19 08:58 Dose: 10 mg Documented by: Morphine Sulfate () 2 mg IV Q3H PRN PRN PRN Reason: breakthrough pain Last Admin: 08/11/19 09:12 Dose: 2 mg Documented by: Ondansetron HCl (Zofran) 4 mg IV Q6H PRN PRN PRN Reason: NAUSEA Oxycodone HCl (Oxyir) 5 mg PO Q4H PRN PRN PRN Reason: Pain Score 4-5/10 Last Admin: 08/12/19 10:36 Dose: 5 mg Documented by: Oxycodone HCl (Oxyir) 10 mg PO Q4H PRN PRN PRN Reason: Pain Score 6-10/10 Last Admin: 08/10/19 17:08 Dose: 10 mg Documented by: Pantoprazole Sodium (Protonix) 40 mg PO DAILY [facility] Last Admin: 08/13/19 08:57 Dose: 40 mg Documented by: Risperidone (Risperdal) 1 mg PO QHS [facility] Last Admin: 08/12/19 21:41 Dose: 1 mg Documented by: Senna/Docusate Sodium (Senokot-S, Raya-Colace) 2 tablet PO BID [facility] Last Admin: 08/13/19 08:57 Dose: 2 tablet Documented by: Sodium Chloride () 10 - 40 ml IV UD PRN PRN Reason: SALINE FLUSH Last Admin: 08/11/19 09:12 Dose: 10 ml Documented by: Trihexyphenidyl HCl (Trihexyphenidyl Hcl) 2 mg PO BID [facility] Last Admin: 08/13/19 08:58 Dose: 2 mg Documented by: Discharge Diet: No Restrictions Discharge Activity: Return to Normal Activity Weight Bearing Status: Weight bearing as tolerated Keep extremity elevated above heart level: Operative Extremity Call your doctor if you observe: Fever of 101 or Higher, Shortness of breath, Chest pain, Calf discomfort Home Medications: Medications to take at Discharge Amlodipine [Norvasc] 5 mg PO DAILY 08/10/19 Buspirone HCl 10 mg PO BID 08/10/19 Fluoxetine HCl [Prozac] 20 mg PO DAILY 08/10/19 Lamotrigine [Lamictal] 200 mg PO DAILY 08/10/19 Omeprazole 40 mg PO DAILY 08/10/19 Risperidone 1 mg PO QHS 08/10/19 Trihexyphenidyl HCl 2 mg PO BID 08/10/19 Apixaban [Eliquis] 2.5 mg PO BID #0 tab 08/13/19 Lisinopril [Zestril] 10 mg PO DAILY tab 08/13/19 Oxycodone [Oxyir] 5 mg PO Q4H PRN PRN 5 Days tab 08/13/19 Primary Care Physician: Jhonatan Zapien MD [Primary Care Provider] - Please follow up with your Primary Care Physician in: 1-2 weeks Please Follow Up With: Soham Gaspar, - 2 weeks Additional Instructions: Begin daily showering warm water antibacterial soap postop day #3( 72hrs Post- operatively) and then daily. Leave the dressing on for 72 hours postoperatively then may remove prior to first shower and change dressing daily after this until no drainage for 2 consecutive days then may leave open to air. Wear compression stockings, may remove at night. Start physical therapy as directed in hospital. Call Dr. Gaspar's office with any concerns. Disposition: Jail facility Minutes spent on discharge:: 35 Patient Condition:: Stable Medical Necessity - Tobacco Use Smoking Status: Current every day smoker Tobacco Use: Cigarettes Meaningful Use Info Meaningful Use Diagnoses (Choose all that apply): None applicable Inpatient E&M: 29653 Disch Hosp
[2019-08-13 13:00] VITALS: BP 102/66; PULSE 91; RESP 18; TEMP 36.8; O2SAT 92
--- NOTE | 2019-08-13 13:46 | NURSING ---
REPORT CALLED TO FREDRICK BURNS, RN TCU
[2019-08-15 10:55] LABS: Pathologist Review Reviewed
== END 2019-08-13 14:05 | disposition skilled nursing facility (03) | DRG 481 ==
LOC: ED 15:13 → MS3 15:40
PROVIDERS: Orthopaedic Surgery; Emergency Provider Emergency Medicine; PCP Internal Medicine; Visit Provider Family Medicine
PROC: 0QH704Z Insertion of Internal Fixation Device into Left Upper Femur, Open Approach (ICD-10-PCS; principal; 2019-08-11 11:30)
DX: S72.145A Nondisplaced intertrochanteric fracture of left femur, initial encounter for closed fracture (principal); E87.1 Hypo-osmolality and hyponatremia; E44.0 Moderate protein-calorie malnutrition; E51.2 Wernicke's encephalopathy; X58.XXXA Exposure to other specified factors, initial encounter; Y93.89 Activity, other specified; Y92.009 Unspecified place in unspecified non-institutional (private) residence as the place of occurrence of the external cause; Y99.8 Other external cause status; I10 Essential (primary) hypertension; J44.9 Chronic obstructive pulmonary disease, unspecified; F41.9 Anxiety disorder, unspecified; F32.9 Major depressive disorder, single episode, unspecified; F10.10 Alcohol abuse, uncomplicated; K21.9 Gastro-esophageal reflux disease without esophagitis; Z79.899 Other long term (current) drug therapy; F17.210 Nicotine dependence, cigarettes, uncomplicated; T50.2X5A Adverse effect of carbonic-anhydrase inhibitors, benzothiadiazides and other diuretics, initial encounter; Z66 Do not resuscitate; E55.9 Vitamin D deficiency, unspecified; Z68.20 Body mass index [BMI] 20.0-20.9, adult; E86.0 Dehydration
CPT/HCPCS: 36415; 70450; 71045; 72125; 72170; 73502; 73552; 74018; 76000; 80048; 80076; 80320; 82306; 82550; 83605; 85025; 85027; 85610; 86850; 86900; 86901; 93005; 96361; 96374; 96376; 97162; 97166; 97530; 99251; 99285; 99406; C1713; J7030; A4216; G0463; G0480; J2405

== ENCOUNTER 2019-08-13 14:27 | Inpatient (IN) | payer MEDICARE, OTHER, SELFPAY ==
[2019-08-11 09:26] VITALS: BMI 20.2
[2019-08-13 14:39] VITALS: BP 115/73; PULSE 86; RESP 18; TEMP 36.8; O2SAT 91; BMI 19.9
--- NOTE | 2019-08-13 15:10 | HP.PCM_ITS ---
Problem List (1) Debility Status: Acute (2) Closed left hip fracture Status: Acute (3) Hyponatremia Status: Acute (4) Fall Status: Acute (5) GERD (gastroesophageal reflux disease) Status: Chronic (6) Hypertension Status: Chronic (7) Seizure disorder Status: Chronic (8) Tobacco abuse Status: Chronic History of Present Illness Date of Admission: 08/13/19 Chief Complaint: Here for rehabilitation, strengthening, prior to discharge home alone. The patient is a 73 year old Male with below past medical history presented to [facility] 08/10/2019 with fall. 08/10/2019 X-ray left femur, left femur fracture. 08/10/2019 CT brain chronic involutional changes of brain. 08/10/2019 CT cervical spine multilevel degenerative changes, exaggerated cervical lordosis, mild retrolisthesis C3 on C4. 08/10/2019 Chest X-ray hyperinflation, prior ORIF left clavicle fracture. 08/10/2019 KUB negative. 08/10/2019 X-ray pelvis, left femur fracture, decrease impaction. Leg gave out, fell on floor, unable to get up. On floor x 2 hours, neighbor found him, called EMS. Left thigh, left hip pain. EKG sinus tachycardia, heart rate 103. IV Fluids given, left lower extremity traction applied. 08/10/2019 Admit to Hospital. Prepare for surgery. Correct hyponatremia with normal saline IV, hold hydrochlorothiazide. 08/10/2019 Dr. Gaspar performed cephalo-medullary nail fixation left hip. 08/12/2019 Pain management. PT/OT for Detention Facility. Sodium improved from 121 to 128. Continue to hold hydrochlorothiazide. Eliquis for DVT prophylaxis. Monitor CBC while on Eliquis. 08/13/2019 Admit to TCU with debility, here for rehabilitation, strengthening, prior to discharge home alone. Past Medical History Past Medical History (Chronic Problems): Chronic Problems (Last Reviewed 08/10/19 @ 15:[address] Mario Gill DO) Anxiety (Chronic) Dizziness (Chronic) IBS (irritable bowel syndrome) (Chronic) GERD (gastroesophageal reflux disease) (Chronic) Depression (Chronic) Hypertension (Chronic) Chronic obstructive pulmonary disease (COPD) (Chronic) COPD exacerbation (Chronic) Generalized weakness (Chronic) Essential hypertension (Chronic) Wernicke encephalopathy (Chronic) Alcohol abuse (Chronic) Seizure disorder (Chronic) Tobacco abuse (Chronic) Medical History: Medical History (Last Reviewed 08/10/19 @ 15:[address] Mario Gill DO) History of kidney stones (Acute) Z87.442 IBS (irritable bowel syndrome) (Chronic) K58.9 Seizures (Acute) R56.9 last one was years ago GERD (gastroesophageal reflux disease) (Chronic) K21.9 History of pneumonia (Acute) Z87.01 Depression (Chronic) F32.9 Anemia (Acute) D64.9 Hypertension (Chronic) I10 Anxiety F41.9 History of alcohol abuse F10.11 History of fracture of clavicle Z87.81 Vitamin D deficiency E55.9 Allergies bupropion HCl [From Wellbutrin] Allergy (Verified 08/10/19 12:50) Unknown quetiapine fumarate [From Seroquel] Allergy (Verified 08/10/19 12:50) Unknown trazodone Adverse Reaction (Verified 08/10/19 12:50) Other Home Medications: Ambulatory Orders Medication Instructions Recorded Amlodipine [Norvasc] 5 mg PO DAILY 08/10/19 Buspirone HCl 10 mg PO BID 08/10/19 Fluoxetine HCl [Prozac] 20 mg PO DAILY 08/10/19 Lamotrigine [Lamictal] 200 mg PO DAILY 08/10/19 Omeprazole 40 mg PO DAILY 08/10/19 Risperidone 1 mg PO QHS 08/10/19 Trihexyphenidyl HCl 2 mg PO BID 08/10/19 Apixaban [Eliquis] 2.5 mg PO BID 08/13/19 Lisinopril [Zestril] 10 mg PO DAILY 08/13/19 Oxycodone [Oxyir] 5 mg PO Q4H PRN PRN 5 Days tab 08/13/19 Surgical History: Surgical History (Last Reviewed 08/10/19 @ 15:[address] Mario Gill DO) History of intestinal surgery Z98.890 due to blockage History of tonsillectomy Z. Surgical History: tonsillectomy, - - Umbilical hernia repair, bowel resection secondary to small bowel obstruction, ORIF left clavicle fracture, ileocecal resection via CT scan evaluation, cephalo-medullary nail fixation left hip. Psychiatric History: Anxiety, Depression Lives: Alone - Lives with cat. Smoking Status: Current every day smoker Tobacco Use: Cigarettes Alcohol: Heavy Drugs: None - *Family History Maternal Family History: Family History (Last Reviewed 08/10/19 @ 15:[address] Mario Gill DO) Other Anemia Anxiety Breast cancer Cancer Depression Hypertension Osteoporosis History Items: Cancer, Hypertension Paternal Family History: Family History (Last Reviewed 08/10/19 @ 15:[address] Mario Gill DO) Other Anemia Anxiety Breast cancer Cancer Depression Hypertension Osteoporosis History Items: Cancer, Hypertension Review of Systems Constitutional: Denies: Chills, Fever, Weight Change HEENT: Denies: Head Aches, Sinus Congestion, Sinus Drainage Cardiovascular: Denies: Chest Pain, Palpitations Respiratory: Denies: Cough, Shortness of breath at rest, Sputum production Gastrointestinal: Denies: Abdominal Pain, Nausea, Vomiting Genitourinary: Denies: Dysuria Musculoskeletal: Denies: Joint Pain, Joint Tenderness Skin: Denies: Rash, Wounds Neurological: Denies: Numbness, Tingling, Focal weakness Psychiatric: Denies: Anxiety, Depression, Homicidal Ideations, Suicidal Ideations Hematologic/ Lymphatic: Denies: Easy Bruising, Easy Bleeding VTE Information - Inpt Only VTE Present on Admission: No VTE Mechan Device Prophylaxis: Knee High JOANNA Hose VTE Pharm Prophylaxis ordered?: Yes Patient Problems: Active and Suspected Problems (Last Reviewed 08/10/19 @ 15:[address] Mario Gill DO) Debility (Acute) Closed left hip fracture (Acute) Hyponatremia (Acute) - Physical Exam Vitals/I&O's: Vital Signs Temp Pulse Resp BP Pulse Ox 98.2 F 86 18 115/73 91 08/13/19 14:39 08/13/19 14:39 08/13/19 14:39 08/13/19 14:39 08/13/19 14:39 Oxygen Delivery Method Room Air Weight: 55.962 kg Body Mass Index (BMI) 19.9 Finger Stick Blood Glucose 152 General: Alert, Oriented x3, Cooperative HEENT: Atraumatic, PERRLA, EOMI, Normocephalic Neck: Supple, No JVD, Negative Carotid Bruits Lungs: Clear to auscultation, Normal air movement Cardiovascular: Regular rate, No murmurs Abdomen: Bowel Sounds Present, Soft, Non Tender Extremities: No edema, Capillary Refill Less than 3 Seconds Skin: No rashes, No breakdown Musculoskeletal: No Tenderness to Palpation of Joints or Extremities Neurological: Cranial nerves II-XII grossly intact Psych/Mental Status: Normal Affect, Appropriate Current Medications Amlodipine Besylate (Norvasc) 5 mg PO DAILY URSULA Apixaban (Eliquis) 2.5 mg PO BID URSULA Fluoxetine HCl (Prozac) 20 mg PO DAILY URSULA Lisinopril (Zestril) 10 mg PO DAILY URSULA Non-Formulary Medication (Buspirone Hcl) 10 mg PO BID URSULA Non-Formulary Medication (Lamotrigine [Lamictal]) 200 mg PO DAILY URSULA Non-Formulary Medication (Omeprazole) 40 mg PO DAILY URSULA Non-Formulary Medication (Risperidone) 1 mg PO QHS URSULA Non-Formulary Medication (Trihexyphenidyl Hcl) 2 mg PO BID URSULA Oxycodone HCl (Oxyir) 5 mg PO Q4H PRN PRN PRN Reason: Pain Score 4-5/10 Assessment/Plan All Active Problems (Last Reviewed 08/10/19 @ 15:[address] Mario Gill, DO) Fall (Acute) Left hip pain (Acute) Leukocytosis (Acute) Debility (Acute) Closed left hip fracture (Acute) Hyponatremia (Acute) History of kidney stones (Acute) Seizures (Acute) History of pneumonia (Acute) Anemia (Acute) Sepsis (Resolved) Pneumonia (Resolved) Disequilibrium (Acute) Cholelithiasis (Resolved) Decreased appetite (Resolved) 73 year old male with below past medical history hospitalized for left hip fracture, underwent left hip cephalo-medullary nail fixation 08/10/[address] Gaspar, complicated by hyponatremia, admitted to TCU with debility, here for rehabilitation, strengthening, prior to discharge home alone. * Debility - PT/OT. * Pain - Tylenol 1000MG TID, Oxycodone 5MG Q4H PRN pain (4-10) * Bowel - Miralax 17GM daily, Senna/colace 2 tablets BID, Dulcolax 10MG daily PRN. * Adult immunization - Administer Prevnar 13, Pneumovax 23, Fluzone as appropriate. * DVT prophylaxis - Eliquis 2.5MG BID thru 09/14/2019. * Hypertension - Lisinopril 10MG daily, Amlodipine 5MG daily. * Anxiety - Buspar 10MG twice daily, stable chronic fdc use, GDR not recommended. * Depression - Fluoxetine 20MG daily, Risperidone 1MG QHS, stable chronic fdc use, GDR not recommended. * Seizure Disorder - Lamictal 200MG daily. * GERD - Omeprazole 40MG daily. * Extrapyramidal symptoms - Artane 2MG twice daily.
[2019-08-13] MEDS: busPIRone 5 MG Tablet 10 MG PO (17:34)
[2019-08-13] MEDS: Senna/Docusate Sodium 1 Tablet 2 TABLET PO (17:34)
[2019-08-13] MEDS: APIXABAN 2.5 MG TABLET PO (17:34)
[2019-08-13] MEDS: TRIHEXYPHENIDYL HCL 2 MG TABLET PO (17:34)
--- NOTE | 2019-08-13 19:02 | NURSING ---
PT MODERATE INCONTINENT. STRAIGHT CATHED FOR 300 PER DOCTOR ORDERS. RN AWARE
[2019-08-13] MEDS: RisperiDONE 1 MG Tablet PO (22:01)
[2019-08-13] MEDS: Acetaminophen 500 MG Tablet 1000 MG PO (22:02)
[2019-08-14] MEDS: Polyethylene Glycol 3350 17 GM PACKET PO (05:20)
[2019-08-14] MEDS: APIXABAN 2.5 MG TABLET PO ×2 (05:21→17:49)
[2019-08-14] MEDS: busPIRone 5 MG Tablet 10 MG PO ×2 (05:21→17:49)
[2019-08-14] MEDS: Acetaminophen 500 MG Tablet 1000 MG PO ×3 (05:21→21:01)
[2019-08-14] MEDS: Pantoprazole Sodium 40 MG Tablet PO (05:21)
[2019-08-14] MEDS: lamoTRIgine 100 MG Tablet 200 MG PO (05:21)
[2019-08-14] MEDS: amLODIPine 5 MG Tablet PO (05:21)
[2019-08-14] MEDS: Lisinopril 10 MG Tablet PO (05:22)
[2019-08-14] MEDS: Senna/Docusate Sodium 1 Tablet 2 TABLET PO ×2 (05:22→17:49)
[2019-08-14] MEDS: TRIHEXYPHENIDYL HCL 2 MG TABLET PO ×2 (05:22→17:49)
[2019-08-14] MEDS: FLUoxetine 20 MG Capsule PO (05:22)
[2019-08-14 07:46] LABS: Absolute Neutrophil Count 6.9 X10^3/uL (2.0-7.7); Basophil# 0.01 X10^3/uL; Basophil% 0.1 % (0-1); Eosinophil# 0.22 X10^3/uL; Eosinophils% 2.1 % (0-5); Hematocrit 22.7 % (40-54); Lymphocyte % 18.4 % (19-41); Mean Corp Hgb Conc 35.2 g/dL (32-36); Mean Corpuscular Hgb 31.3 pg (27.0-32.0); Mean Corpuscular Volume 88.7 fL (80-94); Mean Platelet Vol. 9.4 fl (6.2-12.0); Monocyte# 1.24 X10^3/uL; NRBC Flagged by Analyzer 0 % (0-5); Neutrophil # 6.88 X10^3/uL (2.7-7.7); Neutrophil % 66.8 % (47-70); Platelet Count 281 K/mm3 (150-450); RBC Distribution Width CV 14.2 % (11.6-14.6); RBC Distribution Width SD 45.8 fl (35.1-43.9); Red Blood Count 2.56 M/mm3 (4.6-6.2); White Blood Count 10.3 K/mm3 (4.4-11.0)
[2019-08-14 08:11] LABS: Anion Gap 8 (5-15); BUN 16 mg/dL (7-18); BUN/Creat Ratio 16.7 RATIO (10-20); Calcium,Total 8.4 mg/dL (8.5-10.1); Chloride 99 mmol/L (98-107); Creatinine, Serum 0.96 mg/dL (0.70-1.30); EST Glomerular Filtration Rate 81 mL/min (>60); Est Glom Filt Rate - Afr Amer 99 mL/min (>60); Estimated Creatinine Clearance 54.25 ml/min; Glucose 87 mg/dL (74-106); Potassium 3.6 mmol/L (3.5-5.1); Sodium Level 129 mmol/L (136-145)
[2019-08-14] MEDS: Tuberculin,Purif.prot.deriv. 50 TU/ML Vial 5 ML ID (09:53)
--- NOTE | 2019-08-14 10:12 | NURSING ---
Dr Cortez updated on labs, new order to start ferrex HGB 8
[2019-08-14] MEDS: Iron Polysaccharide Complex 150 MG CAPSULE PO (11:30)
--- NOTE | 2019-08-14 12:25 | NURSING ---
pt asking for wallet so he can give myers to his friend Ashlee De Jesus to clean his appt. pt gave this nurse 60.00 myers to give her when she arrives in about 1 hour.
[2019-08-14 14:11] VITALS: BP 88/55; PULSE 90; RESP 16; TEMP 37; O2SAT 96
[2019-08-14 17:52] VITALS: BP 106/75; PULSE 89
--- NOTE | 2019-08-14 18:36 | NURSING ---
PT BLADDER SCANNED FOR 548. STRAIGHT CATHED FOR 500. CHANGED DRESSING TO LEFT HIP DUE TO DRAINAGE. RN AWARE.
[2019-08-14] MEDS: RisperiDONE 1 MG Tablet PO (21:02)
[2019-08-15] MEDS: lamoTRIgine 100 MG Tablet 200 MG PO (06:50)
[2019-08-15] MEDS: APIXABAN 2.5 MG TABLET PO ×2 (06:50→17:44)
[2019-08-15] MEDS: Lisinopril 10 MG Tablet PO (06:50)
[2019-08-15] MEDS: Pantoprazole Sodium 40 MG Tablet PO (06:50)
[2019-08-15] MEDS: busPIRone 5 MG Tablet 10 MG PO ×2 (06:50→17:43)
[2019-08-15] MEDS: amLODIPine 5 MG Tablet PO (06:50)
[2019-08-15] MEDS: Acetaminophen 500 MG Tablet 1000 MG PO ×3 (06:51→21:54)
[2019-08-15] MEDS: Senna/Docusate Sodium 1 Tablet 2 TABLET PO ×2 (06:52→17:43)
[2019-08-15] MEDS: FLUoxetine 20 MG Capsule PO (06:52)
[2019-08-15] MEDS: TRIHEXYPHENIDYL HCL 2 MG TABLET PO ×2 (07:27→17:42)
[2019-08-15] MEDS: Iron Polysaccharide Complex 150 MG CAPSULE PO (08:22)
[2019-08-15 09:37] VITALS: PULSE 84; RESP 16; O2SAT 93
--- NOTE | 2019-08-15 10:07 | PCM.PN.RX ---
<Tylor Tejada - Last Filed: 08/15/19 10:07> Progress Note - Pharmacy Subjective: [] TCU Admission Objective: Allergies bupropion HCl [From Wellbutrin] Allergy (Verified 08/10/19 12:50) Unknown quetiapine fumarate [From Seroquel] Allergy (Verified 08/10/19 12:50) Unknown trazodone Adverse Reaction (Verified 08/10/19 12:50) Other Current Medications Generic Name Dose Route Start Last Admin Trade Name Freq PRN Reason Stop Dose Admin Acetaminophen 1,000 mg 08/13/19 22:00 08/15/19 06:51 Tylenol PO 1,000 mg Q8 URSULA Administration Amlodipine Besylate 5 mg 08/14/19 06:00 08/15/19 06:50 Norvasc PO 5 mg DAILY URSULA Administration Apixaban 2.5 mg 08/13/19 18:00 08/15/19 06:50 Eliquis PO 09/14/19 23:59 2.5 mg BID URSULA Administration Bisacodyl 10 mg 08/13/19 15:26 Dulcolax PO DAILY PRN Constipation Buspirone HCl 10 mg 08/13/19 18:00 08/15/19 06:50 Buspar PO 10 mg BID URSULA Administration Fluoxetine HCl 20 mg 08/14/19 06:00 08/15/19 06:52 Prozac PO 20 mg DAILY URSULA Administration Lamotrigine 200 mg 08/14/19 06:00 08/15/19 06:50 Lamictal PO 200 mg DAILY URSULA Administration Lisinopril 10 mg 08/14/19 06:00 08/15/19 06:50 Zestril PO 10 mg DAILY URSULA Administration Nutritional Formula (Lactose Free) 120 ml 08/13/19 17:00 08/15/19 06:49 Ensure Enlive PO 120 ml 4X/DAY URSULA Administration Oxycodone HCl 5 mg 08/13/19 15:07 Oxyir PO Q4H PRN PRN Pain Score 4-10/10 Pantoprazole Sodium 40 mg 08/14/19 06:00 08/15/19 06:50 Protonix PO 40 mg DAILY URSULA Administration Polyethylene Glycol 17 gm 08/14/19 06:00 08/15/19 06:53 Miralax PO Not Given DAILY [facility] Polysaccharide Iron Complex 150 mg 08/14/19 12:00 08/15/19 08:22 Ferrex 150 PO 150 mg DAILYCM URSULA Administration Risperidone 1 mg 08/13/19 22:00 08/14/19 21:02 Risperdal PO 1 mg QHS URSULA Administration Senna/Docusate Sodium 2 tablet 08/13/19 18:00 08/15/19 06:52 Senokot-S, Raya-Colace PO 2 tablet BID URSULA Administration Tamsulosin HCl 0.4 mg 08/15/19 17:30 Flomax PO DAILY@1730 URSULA Trihexyphenidyl HCl 2 mg 08/13/19 18:00 08/15/19 07:27 Trihexyphenidyl Hcl PO 2 mg BID URSULA Administration Tuberculin PPD 5 tu 08/21/19 10:00 Tubersol, Aplisol, Ppd ID 08/21/19 10:01 X1 ONE Problem List (Last Reviewed 08/10/19 @ 15:[address] Mario Gill, DO) Debility (Acute) Closed left hip fracture (Acute) Hyponatremia (Acute) Vital Signs Temp Pulse Resp BP Pulse Ox 98.6 F 84 16 106/75 93 08/14/19 14:11 08/15/19 09:37 08/15/19 09:37 08/14/19 17:52 08/15/19 09:37 Oxygen Delivery Method Room Air Weight: 55.962 kg Body Mass Index (BMI) 19.9 Finger Stick Blood Glucose 152 Sodium 129 mmol/L (136-145) L 08/14/19 06:51 Potassium 3.6 mmol/L (3.5-5.1) 08/14/19 06:51 Chloride 99 mmol/L (98-107) 08/14/19 06:51 Carbon Dioxide 22.0 mmol/L (21.0-32.0) 08/14/19 06:51 Anion Gap 8 (5-15) 08/14/19 06:51 BUN 16 mg/dL (7-18) 08/14/19 06:51 Creatinine 0.96 mg/dL (0.70-1.30) 08/14/19 06:51 Est GFR (MDRD) Af Amer 99 mL/min (>60) 08/14/19 06:51 Est GFR (MDRD) Non-Af 81 mL/min (>60) 08/14/19 06:51 BUN/Creatinine Ratio 16.7 RATIO (10-20) 08/14/19 06:51 Glucose 87 mg/dL (74-106) 08/14/19 06:51 Assessment/Plan: one. DVT prophylaxis - Eliquis 2.5MG BID thru 09/14/2019. Seizure Disorder - Lamictal 200MG daily. Extrapyramidal symptoms - Artane 2MG twice daily. 1) Pain: Acetaminophen 1000mg po tid, Oxycodone 5mg po q4h prn for pain -01/27. Please continue to monitor prn usage and for signs/symptoms of increased/decreased pain. *2) GERD: Pantoprazole 40mg po daily. Please continue to monitor for signs/symptoms of GERD. Pt's Magnesium Level was 1.5 on 01/2018. Please consider another Magnesium level. If still low, please consider a trial change from a PPI to famotidine for better vitamin absorption. Thanks 3) Hypertension: Lisinopril 10mg po daily, Amlodipine 5mg po daily. Pt's SrCr is 0.96, BUN is 16, and K+ is 3.6. Please continue to monitor. Pt's average blood pressure is 103/67.7. Please continue to monitor. 4) DVT Prophylaxis: Eliquis 2.5mg po bid thru 09/14/2019. Please continue to monitor for signs/symptoms of bleeding/clot. *5) Seizure Disorder: Lamictal 200mg po daily. Lamictal is on the BEERS list. It is recommended to avoid use unless safer alternatives are not available in patients with a history of falls or fractures. Lamictal May cause ataxia, impaired psychomotor function, syncope, additional falls. If one of the drugs must be used, consider reducing use of other SHAPE BRICK MOLDER-active medications that increase risk of falls and fractures (i.e., anticonvulsants, opioid receptor agonists, antipsychotics, antidepressants, nonbenzodiazepine and benzodiazepine receptor agonists, other sedatives and hypnotics) and implement other strategies to reduce fall risk --Please document risk vs benefit for continued use of Lamictal due to pt's recent fracture. Thanks *Psychotropic Medications: Buspar 10mg po bid. See physicians comment about GDR. Risperdal 1mg po qhs, Fluoxetine 20mg po daily for depression. See physicians comment about GDR. --Fluoxetine is on the BEERS list. Fluoxetine may cause ataxia, impaired psychomotor function, syncope, additional falls. If one of the drugs must be used, consider reducing use of other SHAPE BRICK MOLDER-active medications that increase risk of falls and fractures (i.e., anticonvulsants, opioid receptor agonists, antipsychotics, antidepressants, nonbenzodiazepine and benzodiazepine receptor agonists, other sedatives and hypnotics) and implement other strategies to reduce fall risk. The BEERS recommendation is to Avoid unless safer alternatives are not available. ---Please document a risk vs benefit for the continued use of Fluoxetine. Thanks Unnecessary Medications: Bowel Regimen: Bisacodyl 10mg po daily prn for constipation, Miralax 17gm po daily, Senna/Docusate 2 tablets po bid. Please continue to monitor prn usage and for signs/symptoms of constipation/diarrhea. Date of Note:: 08/15/19 - Provider Comments Provider responsibility: Provider responsible to enter orders to implement recommendations <Diaz Cortez Chi - Last Filed: 08/15/19 12:05> Progress Note - Pharmacy Subjective: [] Objective: Allergies bupropion HCl [From Wellbutrin] Allergy (Verified 08/10/19 12:50) Unknown quetiapine fumarate [From Seroquel] Allergy (Verified 08/10/19 12:50) Unknown trazodone Adverse Reaction (Verified 08/10/19 12:50) Other Current Medications Generic Name Dose Route Start Last Admin Trade Name Freq PRN Reason Stop Dose Admin Acetaminophen 1,000 mg 08/13/19 22:00 08/15/19 06:51 Tylenol PO 1,000 mg Q8 URSULA Administration Amlodipine Besylate 5 mg 08/14/19 06:00 08/15/19 06:50 Norvasc PO 5 mg DAILY URSULA Administration Apixaban 2.5 mg 08/13/19 18:00 08/15/19 06:50 Eliquis PO 09/14/19 23:59 2.5 mg BID URSULA Administration Bisacodyl 10 mg 08/13/19 15:26 Dulcolax PO DAILY PRN Constipation Buspirone HCl 10 mg 08/13/19 18:00 08/15/19 06:50 Buspar PO 10 mg BID URSULA Administration Fluoxetine HCl 20 mg 08/14/19 06:00 08/15/19 06:52 Prozac PO 20 mg DAILY URSULA Administration Lamotrigine 200 mg 08/14/19 06:00 08/15/19 06:50 Lamictal PO 200 mg DAILY URSULA Administration Lisinopril 10 mg 08/14/19 06:00 08/15/19 06:50 Zestril PO 10 mg DAILY URSULA Administration Nutritional Formula (Lactose Free) 120 ml 08/13/19 17:00 08/15/19 11:16 Ensure Enlive PO 120 ml 4X/DAY URSULA Administration Oxycodone HCl 5 mg 08/13/19 15:07 Oxyir PO Q4H PRN PRN Pain Score 4-10/10 Pantoprazole Sodium 40 mg 08/14/19 06:00 08/15/19 06:50 Protonix PO 40 mg DAILY [facility] Administration Polyethylene Glycol 17 gm 08/14/19 06:00 08/15/19 06:53 Miralax PO Not Given DAILY [facility] Polysaccharide Iron Complex 150 mg 08/14/19 12:00 08/15/19 08:22 [facility] Administration Risperidone 1 mg 08/13/19 22:00 08/14/19 21:02 Risperdal PO 1 mg QHS [facility] Administration Senna/Docusate Sodium 2 tablet 08/13/19 18:00 08/15/19 06:52 Senokot-S, Raya-Colace PO 2 tablet BID [facility] Administration Tamsulosin HCl 0.4 mg 08/15/19 17:30 Flomax PO DAILY@1730 [facility] Trihexyphenidyl HCl 2 mg 08/13/19 18:00 08/15/19 07:27 Trihexyphenidyl Hcl PO 2 mg BID [facility] Administration Tuberculin PPD 5 tu 08/21/19 10:00 Tubersol, Aplisol, Ppd ID 08/21/19 10:01 X1 ONE Problem List (Last Reviewed 08/10/19 @ 15:[address] Mario Gill DO) Debility (Acute) Closed left hip fracture (Acute) Hyponatremia (Acute) Vital Signs Temp Pulse Resp BP Pulse Ox 98.6 F 84 16 106/75 93 08/14/19 14:11 08/15/19 09:37 08/15/19 09:37 08/14/19 17:52 08/15/19 09:37 Oxygen Delivery Method Room Air Weight: 55.962 kg Body Mass Index (BMI) 19.9 Finger Stick Blood Glucose 152 Sodium 129 mmol/L (136-145) L 08/14/19 06:51 Potassium 3.6 mmol/L (3.5-5.1) 08/14/19 06:51 Chloride 99 mmol/L (98-107) 08/14/19 06:51 Carbon Dioxide 22.0 mmol/L (21.0-32.0) 08/14/19 06:51 Anion Gap 8 (5-15) 08/14/19 06:51 BUN 16 mg/dL (7-18) 08/14/19 06:51 Creatinine 0.96 mg/dL (0.70-1.30) 08/14/19 06:51 Est GFR (MDRD) Af Amer 99 mL/min (>60) 08/14/19 06:51 Est GFR (MDRD) Non-Af 81 mL/min (>60) 08/14/19 06:51 BUN/Creatinine Ratio 16.7 RATIO (10-20) 08/14/19 06:51 Glucose 87 mg/dL (74-106) 08/14/19 06:51 Assessment/Plan: Psychotropic Medications: Unnecessary Medications: Bowel Regimen: - Provider Comments Provider responsibility: Provider responsible to enter orders to implement recommendations Provider Comments to Recommendations by Pharmacy: Agree
[2019-08-15 15:09] VITALS: BP 101/67; PULSE 81; RESP 18; TEMP 36.6; O2SAT 98
--- NOTE | 2019-08-15 17:36 | PCM.NTREPORT ---
Nutrition Therapy Report - History Nutrition Services has been consulted to:: Conduct nutrition counseling Current diet / nutrition support order:: Regular diet with carnation instant breakfast at meals. - Anthropometric Measurements Height:: 5 ft 6 in Weight:: 55.9 kg Body Mass Index (BMI):: 19.8 - Relevant Labs Relevant Labs:: RBC 2.56 M/mm3 (4.6-6.2) L 08/14/19 06:51 Hgb 8.0 g/dL (13.0-16.5) L 08/14/19 06:51 Hct 22.7 % (40-54) L 08/14/19 06:51 RDW Std Deviation 45.8 fl (35.1-43.9) H 08/14/19 06:51 Lymph % (Auto) 18.4 % (19-41) L 08/14/19 06:51 Barber % (Auto) 12.0 % (0-10) H 08/14/19 06:51 Sodium 129 mmol/L (136-145) L 08/14/19 06:51 Calcium 8.4 mg/dL (8.5-10.1) L 08/14/19 06:51 - Assessment Food / Nutrition-Related History:: Intake at meals~50% on average; denies difficulty chewing/swallowing. Resident reports wt loss recently given ~140 lbs about 6 months ago; calculated ~12% wt loss which is significant for malnutrition especially given compromised intake at meals. - Nutrition Diagnosis Problem / Etiology / Signs & Symptoms (PES):: Pro/ramses malnutrition related to chronic disease as evidenced by ~12% wt loss x 6 months, decreased intake at meals & need for ONS to supplement kcal/protein. Evidence of Malnutrition Exists:: Yes Severe PCM:: Chronic Illness - Nutrition Intervention Nutrition Prescription:: Regular diet with carnation instant breakfast as ordered; will add vanilla magic cup BID with lunch & dinner for additional pro/ramses if consumed. - Food / Nutrient Delivery Interventions Summary of nutrition intervention:: Regular diet with ONS; adjust ONS as needed. Monitor need for sodium/fluid restriction as intake improves at meals. Nutrition support ordered as / adjusted to:: No nutrition support. Nutrition education provided?: Yes - encouraged intake of ONS and meals - MNT Monitoring Further MNT monitoring and evaluation required?: Yes MNT Follow-up in:: 7-9 days
[2019-08-15 17:42] VITALS: BMI 19.8
[2019-08-15] MEDS: Tamsulosin HCl 0.4 MG Capsule PO (17:44)
[2019-08-15] MEDS: RisperiDONE 1 MG Tablet PO (21:56)
[2019-08-16] MEDS: Lisinopril 10 MG Tablet PO (06:39)
[2019-08-16] MEDS: amLODIPine 5 MG Tablet PO (06:39)
[2019-08-16] MEDS: Pantoprazole Sodium 40 MG Tablet PO (06:39)
[2019-08-16] MEDS: APIXABAN 2.5 MG TABLET PO ×2 (06:39→18:20)
[2019-08-16] MEDS: lamoTRIgine 100 MG Tablet 200 MG PO (06:39)
[2019-08-16] MEDS: FLUoxetine 20 MG Capsule PO (06:39)
[2019-08-16] MEDS: busPIRone 5 MG Tablet 10 MG PO ×2 (06:40→18:19)
[2019-08-16] MEDS: Acetaminophen 500 MG Tablet 1000 MG PO ×3 (06:41→22:51)
[2019-08-16] MEDS: TRIHEXYPHENIDYL HCL 2 MG TABLET PO ×2 (06:42→18:20)
[2019-08-16] MEDS: Iron Polysaccharide Complex 150 MG CAPSULE PO (08:41)
[2019-08-16 15:17] VITALS: BP 111/61; PULSE 95; RESP 18; TEMP 37; O2SAT 100
[2019-08-16] MEDS: Tamsulosin HCl 0.4 MG Capsule PO (18:19)
[2019-08-16 22:50] VITALS: PULSE 83; RESP 16; O2SAT 95
[2019-08-16] MEDS: RisperiDONE 1 MG Tablet PO (22:52)
[2019-08-17] MEDS: Pantoprazole Sodium 40 MG Tablet PO (05:36)
[2019-08-17] MEDS: amLODIPine 5 MG Tablet PO (05:36)
[2019-08-17] MEDS: Lisinopril 10 MG Tablet PO (05:36)
[2019-08-17] MEDS: TRIHEXYPHENIDYL HCL 2 MG TABLET PO ×2 (05:36→17:53)
[2019-08-17] MEDS: FLUoxetine 20 MG Capsule PO (05:36)
[2019-08-17] MEDS: busPIRone 5 MG Tablet 10 MG PO ×2 (05:36→17:57)
[2019-08-17] MEDS: lamoTRIgine 100 MG Tablet 200 MG PO (05:36)
[2019-08-17] MEDS: Acetaminophen 500 MG Tablet 1000 MG PO ×3 (05:36→21:27)
[2019-08-17] MEDS: APIXABAN 2.5 MG TABLET PO ×2 (05:36→17:52)
[2019-08-17] MEDS: Iron Polysaccharide Complex 150 MG CAPSULE PO (09:05)
[2019-08-17 10:30] VITALS: PULSE 78; RESP 18; O2SAT 92
--- NOTE | 2019-08-17 10:59 | CASEMGMT ---
Social Work IDT met with patient for care plan meeting. Discussed patient's progress in therapy. Pt is min assist for bed mobility, transfers, ambulating 5 ft with FWW. Pt is max assist for toileting tasks, UE dressing SBA, LE dressing max assist. Pt is on soft/thin diet, taking small/bites sips, and will continue to work on cognitive testing and strategies. Pt receives carnation instant breakfast, ensure, med pass, magic cup, and has good intake. Explained Medicare insurance. Pt does not have a secondary insurance and cannot pay privately for copays so pt would DC by 09/01. Pt has 3 steps to enter and has 1st floor set up. Pt will continue with therapy and nursing. Will continue to follow. GAUTAM CuevasW
[2019-08-17 15:05] VITALS: BP 94/54; PULSE 64; RESP 14; TEMP 37; O2SAT 90
[2019-08-17] MEDS: Tamsulosin HCl 0.4 MG Capsule PO (17:53)
[2019-08-17 17:59] VITALS: BP 103/63; PULSE 78
[2019-08-17] MEDS: RisperiDONE 1 MG Tablet PO (21:28)
[2019-08-17] MEDS: Menthol/Lanolin/Calamine/Znox 113 GM Tube 1 APPLIC TOPICAL (21:31)
[2019-08-18] MEDS: FLUoxetine 20 MG Capsule PO (05:33)
[2019-08-18] MEDS: amLODIPine 5 MG Tablet PO (05:33)
[2019-08-18] MEDS: Acetaminophen 500 MG Tablet 1000 MG PO ×3 (05:33→21:15)
[2019-08-18] MEDS: Senna/Docusate Sodium 1 Tablet 2 TABLET PO ×2 (05:33→17:32)
[2019-08-18] MEDS: busPIRone 5 MG Tablet 10 MG PO ×2 (05:33→17:33)
[2019-08-18] MEDS: APIXABAN 2.5 MG TABLET PO ×2 (05:33→17:33)
[2019-08-18] MEDS: TRIHEXYPHENIDYL HCL 2 MG TABLET PO ×2 (05:33→17:33)
[2019-08-18] MEDS: Pantoprazole Sodium 40 MG Tablet PO (05:33)
[2019-08-18] MEDS: Lisinopril 10 MG Tablet PO (05:33)
[2019-08-18] MEDS: lamoTRIgine 100 MG Tablet 200 MG PO (05:34)
[2019-08-18] MEDS: Menthol/Lanolin/Calamine/Znox 113 GM Tube 1 APPLIC TOPICAL ×2 (05:43→21:15)
[2019-08-18] MEDS: Iron Polysaccharide Complex 150 MG CAPSULE PO (07:56)
[2019-08-18 14:32] VITALS: BP 118/60; PULSE 86; RESP 16; TEMP 36.6; O2SAT 96
[2019-08-18] MEDS: Tamsulosin HCl 0.4 MG Capsule PO (17:33)
[2019-08-18 20:48] VITALS: PULSE 75; O2SAT 92
[2019-08-18] MEDS: RisperiDONE 1 MG Tablet PO (21:15)
[2019-08-19] MEDS: FLUoxetine 20 MG Capsule PO (05:50)
[2019-08-19] MEDS: TRIHEXYPHENIDYL HCL 2 MG TABLET PO ×2 (05:50→17:49)
[2019-08-19] MEDS: APIXABAN 2.5 MG TABLET PO ×2 (05:50→17:48)
[2019-08-19] MEDS: Senna/Docusate Sodium 1 Tablet 2 TABLET PO (05:51)
[2019-08-19] MEDS: Lisinopril 10 MG Tablet PO (05:51)
[2019-08-19] MEDS: lamoTRIgine 100 MG Tablet 200 MG PO (05:51)
[2019-08-19] MEDS: amLODIPine 5 MG Tablet PO (05:51)
[2019-08-19] MEDS: busPIRone 5 MG Tablet 10 MG PO ×2 (05:51→17:48)
[2019-08-19] MEDS: Pantoprazole Sodium 40 MG Tablet PO (05:51)
[2019-08-19] MEDS: Acetaminophen 500 MG Tablet 1000 MG PO ×3 (05:51→23:36)
[2019-08-19] MEDS: Menthol/Lanolin/Calamine/Znox 113 GM Tube 1 APPLIC TOPICAL ×2 (05:54→23:31)
[2019-08-19] MEDS: Iron Polysaccharide Complex 150 MG CAPSULE PO (08:00)
[2019-08-19 10:00] VITALS: PULSE 78; RESP 16; O2SAT 94
--- NOTE | 2019-08-19 13:10 | MDS.RN ---
Pain interview for carlos 08/20/19 completed.
--- NOTE | 2019-08-19 14:25 | CASEMGMT ---
Social Work BIMS and PHQ-9 completed for MDS assessment. Beata Dubon, FIRE PROTECTION ENGINEERING TECHNICIAN FINANCE ASSOCIATE
[2019-08-19 14:31] VITALS: BP 114/65; PULSE 78; RESP 18; TEMP 36.9; O2SAT 94
[2019-08-19] MEDS: oxyCODONE 5 MG Tablet PO (16:25)
[2019-08-19] MEDS: Tamsulosin HCl 0.4 MG Capsule PO (17:48)
[2019-08-19] MEDS: MELATONIN 3 MG TABLET PO (23:33)
[2019-08-19] MEDS: Mirtazapine 15 MG Tablet 7.5 MG PO (23:33)
[2019-08-19] MEDS: RisperiDONE 1 MG Tablet PO (23:35)
[2019-08-20] MEDS: amLODIPine 5 MG Tablet PO (06:15)
[2019-08-20] MEDS: FLUoxetine 20 MG Capsule PO (06:15)
[2019-08-20] MEDS: Pantoprazole Sodium 40 MG Tablet PO (06:15)
[2019-08-20] MEDS: APIXABAN 2.5 MG TABLET PO ×2 (06:15→17:17)
[2019-08-20] MEDS: TRIHEXYPHENIDYL HCL 2 MG TABLET PO ×2 (06:15→17:18)
[2019-08-20] MEDS: Lisinopril 10 MG Tablet PO (06:15)
[2019-08-20] MEDS: busPIRone 5 MG Tablet 10 MG PO ×2 (06:15→17:17)
[2019-08-20] MEDS: lamoTRIgine 100 MG Tablet 200 MG PO (06:15)
[2019-08-20] MEDS: Menthol/Lanolin/Calamine/Znox 113 GM Tube 1 APPLIC TOPICAL ×2 (06:16→21:06)
[2019-08-20] MEDS: Acetaminophen 500 MG Tablet 1000 MG PO ×3 (06:18→21:04)
[2019-08-20] MEDS: Iron Polysaccharide Complex 150 MG CAPSULE PO (08:03)
[2019-08-20 16:00] VITALS: BP 98/61; PULSE 75; RESP 18; TEMP 37.2; O2SAT 94
[2019-08-20] MEDS: Senna/Docusate Sodium 1 Tablet 2 TABLET PO (17:17)
[2019-08-20] MEDS: Tamsulosin HCl 0.4 MG Capsule PO (17:17)
[2019-08-20] MEDS: RisperiDONE 1 MG Tablet PO (21:05)
[2019-08-20] MEDS: Mirtazapine 15 MG Tablet 7.5 MG PO (21:05)
[2019-08-20] MEDS: MELATONIN 3 MG TABLET PO (21:05)
[2019-08-20 21:09] VITALS: PULSE 77; O2SAT 95
[2019-08-21] MEDS: APIXABAN 2.5 MG TABLET PO ×2 (06:37→17:40)
[2019-08-21] MEDS: Menthol/Lanolin/Calamine/Znox 113 GM Tube 1 APPLIC TOPICAL ×2 (06:37→21:26)
[2019-08-21] MEDS: Acetaminophen 500 MG Tablet 1000 MG PO ×3 (06:37→21:24)
[2019-08-21] MEDS: lamoTRIgine 100 MG Tablet 200 MG PO (06:37)
[2019-08-21] MEDS: busPIRone 5 MG Tablet 10 MG PO ×2 (06:37→17:39)
[2019-08-21] MEDS: TRIHEXYPHENIDYL HCL 2 MG TABLET PO ×2 (06:38→17:40)
[2019-08-21] MEDS: Lisinopril 10 MG Tablet PO (06:38)
[2019-08-21] MEDS: amLODIPine 5 MG Tablet PO (06:38)
[2019-08-21] MEDS: Pantoprazole Sodium 40 MG Tablet PO (06:38)
[2019-08-21] MEDS: FLUoxetine 20 MG Capsule PO (06:38)
[2019-08-21] MEDS: Senna/Docusate Sodium 1 Tablet 2 TABLET PO (06:38)
[2019-08-21 08:05] LABS: Absolute Lymphocyte Count 2.57 X10^3/uL (0.83-4.51); Absolute Neutrophil Count 7.4 X10^3/uL (2.0-7.7); Basophil# 0.03 X10^3/uL; Basophil% 0.3 % (0-1); Eosinophil# 0.68 X10^3/uL; Eosinophils% 5.7 % (0-5); Hematocrit 26.7 % (40-54); Hemoglobin 8.6 g/dL (13.0-16.5); Lymphocyte # 2.57 X10^3/ul (4.0); Lymphocyte % 21.6 % (19-41); Mean Corp Hgb Conc 32.2 g/dL (32-36); Mean Corpuscular Hgb 30.4 pg (27.0-32.0); Mean Corpuscular Volume 94.3 fL (80-94); Mean Platelet Vol. 8.3 fl (6.2-12.0); Monocyte# 1.09 X10^3/uL; Monocyte% 9.2 % (0-10); NRBC Flagged by Analyzer 0 % (0-5); Neutrophil # 7.43 X10^3/uL (2.7-7.7); Neutrophil % 62.3 % (47-70); Platelet Count 601 K/mm3 (150-450); RBC Distribution Width CV 16.3 % (11.6-14.6); RBC Distribution Width SD 54.4 fl (35.1-43.9); Red Blood Count 2.83 M/mm3 (4.6-6.2); White Blood Count 11.9 K/mm3 (4.4-11.0)
[2019-08-21] MEDS: Iron Polysaccharide Complex 150 MG CAPSULE PO (08:44)
[2019-08-21 10:00] VITALS: PULSE 75; RESP 18; O2SAT 93
[2019-08-21] MEDS: Tuberculin,Purif.prot.deriv. 50 TU/ML Vial 5 ML ID (13:58)
[2019-08-21 15:47] VITALS: BP 122/74; PULSE 75; RESP 18; TEMP 36.8; O2SAT 95
[2019-08-21] MEDS: Tamsulosin HCl 0.4 MG Capsule PO (17:40)
[2019-08-21] MEDS: MELATONIN 3 MG TABLET PO (21:25)
[2019-08-21] MEDS: Mirtazapine 15 MG Tablet 7.5 MG PO (21:26)
[2019-08-21] MEDS: RisperiDONE 1 MG Tablet PO (21:28)
[2019-08-22] MEDS: Pantoprazole Sodium 40 MG Tablet PO (05:32)
[2019-08-22] MEDS: Senna/Docusate Sodium 1 Tablet 2 TABLET PO (05:32)
[2019-08-22] MEDS: Lisinopril 10 MG Tablet PO (05:32)
[2019-08-22] MEDS: amLODIPine 5 MG Tablet PO (05:32)
[2019-08-22] MEDS: FLUoxetine 20 MG Capsule PO (05:32)
[2019-08-22] MEDS: busPIRone 5 MG Tablet 10 MG PO ×2 (05:32→17:43)
[2019-08-22] MEDS: APIXABAN 2.5 MG TABLET PO ×2 (05:32→17:43)
[2019-08-22] MEDS: lamoTRIgine 100 MG Tablet 200 MG PO (05:32)
[2019-08-22] MEDS: Acetaminophen 500 MG Tablet 1000 MG PO ×3 (05:32→20:01)
[2019-08-22] MEDS: TRIHEXYPHENIDYL HCL 2 MG TABLET PO ×2 (05:34→17:42)
[2019-08-22] MEDS: Menthol/Lanolin/Calamine/Znox 113 GM Tube 1 APPLIC TOPICAL ×2 (05:34→20:07)
[2019-08-22] MEDS: Iron Polysaccharide Complex 150 MG CAPSULE PO (07:54)
[2019-08-22 16:00] VITALS: BP 109/73; PULSE 69; RESP 16; TEMP 36.2; O2SAT 96
[2019-08-22] MEDS: Tamsulosin HCl 0.4 MG Capsule PO (17:43)
[2019-08-22] MEDS: Mirtazapine 15 MG Tablet 7.5 MG PO (20:01)
[2019-08-22] MEDS: MELATONIN 3 MG TABLET PO (20:03)
[2019-08-22] MEDS: RisperiDONE 1 MG Tablet PO (20:04)
[2019-08-23] MEDS: APIXABAN 2.5 MG TABLET PO (06:16)
[2019-08-23] MEDS: Pantoprazole Sodium 40 MG Tablet PO (06:16)
[2019-08-23] MEDS: busPIRone 5 MG Tablet 10 MG PO ×2 (06:16→17:45)
[2019-08-23] MEDS: Lisinopril 10 MG Tablet PO (06:16)
[2019-08-23] MEDS: amLODIPine 5 MG Tablet PO (06:16)
[2019-08-23] MEDS: Senna/Docusate Sodium 1 Tablet 2 TABLET PO (06:16)
[2019-08-23] MEDS: lamoTRIgine 100 MG Tablet 200 MG PO (06:17)
[2019-08-23] MEDS: Menthol/Lanolin/Calamine/Znox 113 GM Tube 1 APPLIC TOPICAL ×2 (06:17→22:19)
[2019-08-23] MEDS: Acetaminophen 500 MG Tablet 1000 MG PO ×3 (06:17→22:22)
[2019-08-23] MEDS: TRIHEXYPHENIDYL HCL 2 MG TABLET PO ×2 (06:18→17:45)
[2019-08-23] MEDS: FLUoxetine 20 MG Capsule PO (06:19)
[2019-08-23 07:04] LABS: Anion Gap 4 (5-15); BUN 27 mg/dL (7-18); BUN/Creat Ratio 25.2 RATIO (10-20); Calcium,Total 8.9 mg/dL (8.5-10.1); Chloride 112 mmol/L (98-107); Creatinine, Serum 1.07 mg/dL (0.70-1.30); EST Glomerular Filtration Rate 72 mL/min (>60); Est Glom Filt Rate - Afr Amer 87 mL/min (>60); Estimated Creatinine Clearance 48.62 ml/min; Glucose 87 mg/dL (74-106); Potassium 4.3 mmol/L (3.5-5.1); Sodium Level 143 mmol/L (136-145)
[2019-08-23] MEDS: Iron Polysaccharide Complex 150 MG CAPSULE PO (08:42)
[2019-08-23 11:15] VITALS: PULSE 81; RESP 18; O2SAT 96
[2019-08-23 14:09] VITALS: BP 123/66; PULSE 82; RESP 16; TEMP 36.8; O2SAT 94
--- NOTE | 2019-08-23 14:32 | CASEMGMT ---
Social Work Provided card of prayers and encouragement from community member to pt. Pt appreciative. Beata Dubon, ROENTGENOLOGIST GREENSTONE POLISHER OPERATOR
--- NOTE | 2019-08-23 16:15 | NURSING ---
ASK PT IF THERE WAS ANY ONE HE WOULD LIKE THIS NURSE TO CALL TO UPDATE THEM ON ANY THING PERTAINING TO HIM. PT STATED NO.
[2019-08-23] MEDS: Tamsulosin HCl 0.4 MG Capsule PO (17:45)
[2019-08-23 18:43] LABS: Mucous, Urine 0 SEEN /hpf (<or=2+)
[2019-08-23 19:04] LABS: Color, Urine Yellow (Yellow); Glucose, Dipstick Normal (Normal); Ketone-Dipstick Negative (Negative); Leukocyte Esterase-Dipstick 500 /ul (Negative); Nitrite-Dipstick Positive (Negative); Occult Blood-Urine 250 /ul (Negative); Protein-Dipstick 30 mg/dl (Negative); Urine Bilirubin Dipstick Negative (Negative); Urine Clarity Cloudy (Clear); Urine Urobilinogen Normal (Normal)
[2019-08-23 19:13] LABS: Bacteria 1+ /hpf (None Seen); Calcium Oxalate Crystals Ur RARE /hpf (<or=2+); Red Blood Cells-Urine 25-50 SEEN /hpf (0-5); Squamous Epithelial Cells - UA 0-5 SEEN /hpf (0-5); White Blood Cells 50-100 SEEN /hpf (0-5)
--- NOTE | 2019-08-23 20:49 | NURSING ---
Dr. Cortez updated on UA. Cipro x7 days. Culture pending.
[2019-08-23] MEDS: Ciprofloxacin 250 MG Tablet PO (22:19)
[2019-08-23] MEDS: MELATONIN 3 MG TABLET PO (22:20)
[2019-08-23] MEDS: RisperiDONE 1 MG Tablet PO (22:21)
[2019-08-23] MEDS: Mirtazapine 15 MG Tablet 7.5 MG PO (22:21)
[2019-08-24] MEDS: Ciprofloxacin 250 MG Tablet PO ×2 (06:44→17:50)
[2019-08-24] MEDS: Acetaminophen 500 MG Tablet 1000 MG PO ×3 (06:44→20:41)
[2019-08-24] MEDS: busPIRone 5 MG Tablet 10 MG PO ×2 (06:44→17:50)
[2019-08-24] MEDS: lamoTRIgine 100 MG Tablet 200 MG PO (06:45)
[2019-08-24] MEDS: TRIHEXYPHENIDYL HCL 2 MG TABLET PO ×2 (06:46→17:50)
[2019-08-24] MEDS: Pantoprazole Sodium 40 MG Tablet PO (06:46)
[2019-08-24] MEDS: amLODIPine 5 MG Tablet PO (06:46)
[2019-08-24] MEDS: Lisinopril 10 MG Tablet PO (06:46)
[2019-08-24] MEDS: Senna/Docusate Sodium 1 Tablet 2 TABLET PO ×2 (06:46→17:50)
[2019-08-24] MEDS: Menthol/Lanolin/Calamine/Znox 113 GM Tube 1 APPLIC TOPICAL ×2 (06:48→20:47)
[2019-08-24] MEDS: FLUoxetine 20 MG Capsule PO (06:48)
[2019-08-24] MEDS: Iron Polysaccharide Complex 150 MG CAPSULE PO (07:53)
[2019-08-24 10:00] VITALS: PULSE 66; RESP 18; O2SAT 92
--- NOTE | 2019-08-24 10:40 | MDS.RN ---
Information for the mds was obtained from review of the clinical record, interview of resident, staff, and direct observation of resident's care.
[2019-08-24 14:47] VITALS: BP 102/58; PULSE 76; RESP 16; TEMP 36.9; O2SAT 90
[2019-08-24] MEDS: Tamsulosin HCl 0.4 MG Capsule PO (17:50)
[2019-08-24] MEDS: Mirtazapine 15 MG Tablet 7.5 MG PO (20:41)
[2019-08-24] MEDS: RisperiDONE 1 MG Tablet PO (20:42)
[2019-08-24] MEDS: MELATONIN 3 MG TABLET PO (20:43)
[2019-08-25] MEDS: busPIRone 5 MG Tablet 10 MG PO ×2 (06:36→17:28)
[2019-08-25] MEDS: Pantoprazole Sodium 40 MG Tablet PO (06:36)
[2019-08-25] MEDS: Lisinopril 10 MG Tablet PO (06:36)
[2019-08-25] MEDS: FLUoxetine 20 MG Capsule PO (06:36)
[2019-08-25] MEDS: lamoTRIgine 100 MG Tablet 200 MG PO (06:36)
[2019-08-25] MEDS: Senna/Docusate Sodium 1 Tablet 2 TABLET PO ×2 (06:36→17:28)
[2019-08-25] MEDS: TRIHEXYPHENIDYL HCL 2 MG TABLET PO ×2 (06:36→17:27)
[2019-08-25] MEDS: Acetaminophen 500 MG Tablet 1000 MG PO ×3 (06:36→21:34)
[2019-08-25] MEDS: amLODIPine 5 MG Tablet PO (06:37)
[2019-08-25] MEDS: Menthol/Lanolin/Calamine/Znox 113 GM Tube 1 APPLIC TOPICAL ×2 (06:37→21:32)
[2019-08-25] MEDS: Ciprofloxacin 250 MG Tablet PO ×2 (06:37→17:29)
[2019-08-25] MEDS: Iron Polysaccharide Complex 150 MG CAPSULE PO (08:11)
[2019-08-25 10:00] VITALS: PULSE 92; RESP 18; O2SAT 93
--- NOTE | 2019-08-25 12:06 | NURSING ---
wood removed per order. No drainage noted at this time, remains well approximated, 7 wood removed from left hip, 6 wood removed from left thigh, pt tolerated well
[2019-08-25 15:02] VITALS: BP 113/68; PULSE 73; RESP 18; TEMP 36.9; O2SAT 98
[2019-08-25] MEDS: Tamsulosin HCl 0.4 MG Capsule PO (17:29)
[2019-08-25] MEDS: MELATONIN 3 MG TABLET PO (21:33)
[2019-08-25] MEDS: RisperiDONE 1 MG Tablet PO (21:34)
[2019-08-25] MEDS: Mirtazapine 15 MG Tablet 7.5 MG PO (21:34)
[2019-08-26] MEDS: Ciprofloxacin 250 MG Tablet PO ×2 (06:29→17:16)
[2019-08-26] MEDS: Lisinopril 10 MG Tablet PO (06:29)
[2019-08-26] MEDS: Pantoprazole Sodium 40 MG Tablet PO (06:29)
[2019-08-26] MEDS: busPIRone 5 MG Tablet 10 MG PO ×2 (06:29→17:15)
[2019-08-26] MEDS: amLODIPine 5 MG Tablet PO (06:30)
[2019-08-26] MEDS: lamoTRIgine 100 MG Tablet 200 MG PO (06:30)
[2019-08-26] MEDS: TRIHEXYPHENIDYL HCL 2 MG TABLET PO ×2 (06:30→17:16)
[2019-08-26] MEDS: Senna/Docusate Sodium 1 Tablet 2 TABLET PO (06:30)
[2019-08-26] MEDS: FLUoxetine 20 MG Capsule PO (06:30)
[2019-08-26] MEDS: Acetaminophen 500 MG Tablet 1000 MG PO ×3 (06:30→21:57)
[2019-08-26] MEDS: Menthol/Lanolin/Calamine/Znox 113 GM Tube 1 APPLIC TOPICAL ×2 (06:31→21:56)
[2019-08-26] MEDS: Iron Polysaccharide Complex 150 MG CAPSULE PO (08:03)
--- NOTE | 2019-08-26 11:29 | CASEMGMT ---
Social Work Spoke with pt to discuss DC plans. Pt states he is making progress in therapy and agreeable to DC 09/01 on . Pt agreeable to [facility] - provided list - pt chose [facility]. Referral made for PT/OT/ST/SN/SW. Pt requesting FWW. [place] [facility] home alone 09/01 with [facility] PT/OT/ST/SN/SW. [employer] - FWW Beata Dubon, TUBE HANDLEREl ROSSIW
--- NOTE | 2019-08-26 14:11 | DCINST_ITS ---
- Discharge Diagnoses Current Active Problems: Current Active and Chronic Problems (Last Reviewed 08/10/19 @ 15:[address] Mario Gill, DO) Debility (Acute) Closed left hip fracture (Acute) Hyponatremia (Acute) You will use the following diet at home:: No restrictions, Regular Your food should be the consistency of: Regular Your liquids should be the consistency of: Regular/Thin Discharge Activity: Return to Normal Activity, May Shower, Use Walker Weight Bearing Status: Weight bearing as tolerated Call your doctor if you observe: Fever of 101 or Higher, Inability to urinate, Inability to have a bowel movement, Shortness of breath, Chest pain, Uncontrolled pain Allergies/Adverse Reactions: Allergies bupropion HCl [From Wellbutrin] Allergy (Verified 08/10/19 12:50) Unknown quetiapine fumarate [From Seroquel] Allergy (Verified 08/10/19 12:50) Unknown trazodone Adverse Reaction (Verified 08/10/19 12:50) Other Medications to take at Discharge Amlodipine [Norvasc] 5 mg PO DAILY 08/10/19 Buspirone HCl 10 mg PO BID 08/10/19 Fluoxetine HCl [Prozac] 20 mg PO DAILY 08/10/19 Lamotrigine [Lamictal] 200 mg PO DAILY 08/10/19 Omeprazole 40 mg PO DAILY 08/10/19 Risperidone 1 mg PO QHS 08/10/19 Trihexyphenidyl HCl 2 mg PO BID 08/10/19 Acetaminophen [Tylenol] 1,000 mg PO Q8 tablet 08/26/19 Apixaban [Eliquis] 2.5 mg PO BID #24 tab 08/26/19 Iron Polysaccharide Complex [Ferrex 150] 150 mg PO DAILYCM #30 cap 08/26/19 Lisinopril [Zestril] 10 mg PO DAILY #30 tab 08/26/19 Melatonin 3 mg PO QHS tablet 08/26/19 Menthol/Lanolin/Calamine/Znox [Calmoseptine Ointment] 1 applic TOPICAL 0600,2200 tube 08/26/19 Mirtazapine [Remeron] 7.5 mg PO QHS #30 tab 08/26/19 Tamsulosin HCl [Flomax] 0.4 mg PO DAILY@1730 #30 cap 08/26/19 The following prescriptions were given: Apixaban [Eliquis] 2.5 mg PO BID #24 tab Transmission Status: Pending to [place] [id number] Iron Polysaccharide Complex [Ferrex 150] 150 mg PO DAILYCM #30 cap Transmission Status: Pending to [place] [id number] Tamsulosin HCl [Flomax] 0.4 mg PO DAILY@1730 #30 cap Transmission Status: Pending to [place] [id number] Mirtazapine [Remeron] 7.5 mg PO QHS #30 tab Transmission Status: Pending to [place] [id number] Lisinopril [Zestril] 10 mg PO DAILY #30 tab Transmission Status: Pending to [place] [id number] Primary Care Physician: Jhonatan Zapien MD [Primary Care Provider] - Please follow up with your Primary Care Physician in: 1 week. Test Results: Test results from this visit will be discussed in further detail at your follow- up appointment, if applicable. Please Follow Up With: Soham Gaspar DO When: 2 weeks. Proposed Discharge Date: 09/02/19
--- NOTE | 2019-08-26 14:13 | DS.PCM_ITS ---
Discharge Date and Diagnosis - Problem List Patient Problems: Active and Suspected Problems (Last Reviewed 08/10/19 @ 15:[address] Mario Gill DO) Debility (Acute) Closed left hip fracture (Acute) Hyponatremia (Acute) Date of Admission: 08/13/19 Date of Discharge: 09/02/19 - Primary Discharge Diagnosis Active and Suspected Problems (Last Reviewed 08/10/19 @ 15:[address] Mario Gill DO) Debility (Acute) Closed left hip fracture (Acute) Hyponatremia (Acute) - Secondary Discharge Diagnosis Chronic Problems (Last Reviewed 08/10/19 @ 15:[address] Mario Gill DO) Anxiety (Chronic) Dizziness (Chronic) IBS (irritable bowel syndrome) (Chronic) GERD (gastroesophageal reflux disease) (Chronic) Depression (Chronic) Hypertension (Chronic) Chronic obstructive pulmonary disease (COPD) (Chronic) COPD exacerbation (Chronic) Generalized weakness (Chronic) Essential hypertension (Chronic) Wernicke encephalopathy (Chronic) Alcohol abuse (Chronic) Seizure disorder (Chronic) Tobacco abuse (Chronic) Hospital Course and Treatment Imaging Results: 08/21/19 07:02 Diet: Regular Diet Food consistency:: Soft Liquid Consistency:: Regular/Thin Type of Dietary Supplement:: Wilcox Breakfast Is pt able to select menu?: Yes Labs (Last 48 Hours) 08/23/19 11:33 COVID-19 (GÉNESIS) Not Detected Microbiology 08/23/19 17:12 Urine Catheter - Charles Urine Culture - Final Presumptive E. coli 08/24/19 11:34 Mucosa - Nasopharyngeal Coronavirus COVID-19 PCR - Final Operations: None, - - Cephalo-medullary fixation of the left hip Procedures: None Summary of Care Provided: The patient is a 73 year old Male with below past medical history hospitalized for left hip fracture, underwent left hip cephalo-medullary nail fixation 08/10/[address] Gaspar, complicated by hyponatremia, admitted to TCU with debility, here for rehabilitation, strengthening, prior to discharge home alone. 08/23/2019 E. Coli urinary tract infection treated with Cipro, E. Coli Cipro sensitive. Ferrex 150MG daily added for postoperative anemia, can stop as outpatient. Mirtazapine 7.5MG at bedtime added for low appetite, consider stopping as outpatient. Tamsulosin 0.4MG daily added for BPH/urinary retention, Charles catheter removed 08/26/2019. Lisinopril HCT changed to Lisinopril 10MG daily due to dizziness. Discharge home alone, [facility] PT/OT/ST/SN/SW, [employer] Front wheeled walker. Patient Problems: Active and Suspected Problems (Last Reviewed 08/10/19 @ 15:[address] Mario Gill, DO) Debility (Acute) Closed left hip fracture (Acute) Hyponatremia (Acute) - Physical Exam Vitals/I&O's: Vital Signs Temp Pulse Resp BP Pulse Ox 98.4 F 73 18 113/68 98 08/25/19 15:02 08/25/19 15:02 08/25/19 15:02 08/25/19 15:02 08/25/19 15:02 Oxygen Delivery Method Room Air Weight: 60.384 kg Body Mass Index (BMI) 19.8 Finger Stick Blood Glucose 152 Intake and Output for Last 24 Hours 08/24/19 08/25/19 08/26/19 23:59 23:59 23:59 Intake Total 480 / 480 720 / 720 120 / 120 Output Total 1050 / 1050 850 / 850 350 / 350 Balance -570 / -570 -130 / -130 -230 / -230 Microbiology Past 72 Hours 08/23/19 17:12 Urine Catheter - Charles Urine Culture - Final Presumptive E. coli 08/24/19 11:34 Mucosa - Nasopharyngeal Coronavirus COVID-19 PCR - Final Laboratory Results 08/23/19 11:33: COVID-19 (GÉNESIS) Not Detected Current Medications Acetaminophen (Tylenol) 1,000 mg PO Q8 [facility] Last Admin: 08/26/19 13:23 Dose: 1,000 mg Documented by: Amlodipine Besylate (Norvasc) 5 mg PO DAILY [facility] Last Admin: 08/26/19 06:30 Dose: 5 mg Documented by: Apixaban (Eliquis) 2.5 mg PO BID [facility] Stop: 09/14/19 23:59 Last Admin: 08/23/19 06:16 Dose: 2.5 mg Documented by: Bisacodyl (Dulcolax) 10 mg PO DAILY PRN PRN Reason: Constipation Buspirone HCl (Buspar) 10 mg PO BID [facility] Last Admin: 08/26/19 06:29 Dose: 10 mg Documented by: Calamine/Phenol (Calmoseptine Ointment) 1 applic TOPICAL 0600,2200 [facility]; Protocol Last Admin: 08/26/19 06:31 Dose: 1 applicatio Documented by: Ciprofloxacin HCl (Cipro) 250 mg PO BID [facility] Stop: 08/31/19 06:01 Last Admin: 08/26/19 06:29 Dose: 250 mg Documented by: Fluoxetine HCl (Prozac) 20 mg PO DAILY [facility] Last Admin: 08/26/19 06:30 Dose: 20 mg Documented by: Lamotrigine (Lamictal) 200 mg PO DAILY [facility] Last Admin: 08/26/19 06:30 Dose: 200 mg Documented by: Lisinopril (Zestril) 10 mg PO DAILY [facility] Last Admin: 08/26/19 06:29 Dose: 10 mg Documented by: Melatonin (Melatonin) 3 mg PO QHS [facility] Last Admin: 08/25/19 21:33 Dose: 3 mg Documented by: Mirtazapine (Remeron) 7.5 mg PO QHS [facility] Last Admin: 08/25/19 21:34 Dose: 7.5 mg Documented by: Nutritional Formula (Lactose Free) (Ensure Enlive) 120 ml PO 4X/DAY [facility] Last Admin: 08/26/19 11:19 Dose: Not Given Documented by: Oxycodone HCl (Oxyir) 5 mg PO Q4H PRN PRN PRN Reason: Pain Score 4-10/10 Last Admin: 08/19/19 16:25 Dose: 5 mg Documented by: Pantoprazole Sodium (Protonix) 40 mg PO DAILY [facility] Last Admin: 08/26/19 06:29 Dose: 40 mg Documented by: Polyethylene Glycol (Miralax) 17 gm PO DAILY [facility] Last Admin: 08/26/19 06:32 Dose: Not Given Documented by: [facility] Admin: 08/26/19 08:03 Dose: 150 mg Documented by: Risperidone (Risperdal) 1 mg PO QHS [facility] Last Admin: 08/25/19 21:34 Dose: 1 mg Documented by: Senna/Docusate Sodium (Senokot-S, Raya-Colace) 2 tablet PO BID [facility] Last Admin: 08/26/19 06:30 Dose: 2 tablet Documented by: Tamsulosin HCl (Flomax) 0.4 mg PO DAILY@1730 [facility] Last Admin: 08/25/19 17:29 Dose: 0.4 mg Documented by: Trihexyphenidyl HCl (Trihexyphenidyl Hcl) 2 mg PO BID [facility] Last Admin: 08/26/19 06:30 Dose: 2 mg Documented by: Discharge Diet: No Restrictions Discharge Activity: Return to Normal Activity, May Shower, Use Walker Weight Bearing Status: Weight bearing as tolerated Call your doctor if you observe: Fever of 101 or Higher, Inability to urinate, Inability to have a bowel movement, Shortness of breath, Chest pain, Uncontrolled pain Home Medications: Medications to take at Discharge Amlodipine [Norvasc] 5 mg PO DAILY 08/10/19 Buspirone HCl 10 mg PO BID 08/10/19 Fluoxetine HCl [Prozac] 20 mg PO DAILY 08/10/19 Lamotrigine [Lamictal] 200 mg PO DAILY 08/10/19 Omeprazole 40 mg PO DAILY 08/10/19 Risperidone 1 mg PO QHS 08/10/19 Trihexyphenidyl HCl 2 mg PO BID 08/10/19 Acetaminophen [Tylenol] 1,000 mg PO Q8 tablet 08/26/19 Apixaban [Eliquis] 2.5 mg PO BID #24 tab 08/26/19 Iron Polysaccharide Complex [Ferrex 150] 150 mg PO DAILYCM #30 cap 08/26/19 Lisinopril [Zestril] 10 mg PO DAILY #30 tab 08/26/19 Melatonin 3 mg PO QHS tablet 08/26/19 Menthol/Lanolin/Calamine/Znox [Calmoseptine Ointment] 1 applic TOPICAL 0600,2200 tube 08/26/19 Mirtazapine [Remeron] 7.5 mg PO QHS #30 tab 08/26/19 Tamsulosin HCl [Flomax] 0.4 mg PO DAILY@1730 #30 cap 08/26/19 Following Prescrptions Were Given to Patient: Apixaban [Eliquis] 2.5 mg PO BID #24 tab Transmission Status: Pending to [facility] [id number] Iron Polysaccharide Complex [Ferrex 150] 150 mg PO DAILYCM #30 cap Transmission Status: Pending to [place] [id number] Tamsulosin HCl [Flomax] 0.4 mg PO DAILY@1730 #30 cap Transmission Status: Pending to [facility] [id number] Mirtazapine [Remeron] 7.5 mg PO QHS #30 tab Transmission Status: Pending to [facility] Lisinopril [Zestril] 10 mg PO DAILY #30 tab Transmission Status: Pending to [facility] Primary Care Physician: Jhonatan Zapien MD [Primary Care Provider] - Please follow up with your Primary Care Physician in: 1 week. Please Follow Up With: Soham Gaspar DO When: 2 weeks. Disposition: Home with Home Health Minutes spent on discharge:: 35 Patient Condition:: Stable Medical Necessity - Tobacco Use Smoking Status: Current every day smoker Tobacco Use: Cigarettes Meaningful Use Info Meaningful Use Diagnoses (Choose all that apply): None applicable
[2019-08-26 14:37] VITALS: BP 103/60; PULSE 70; RESP 16; TEMP 36.9; O2SAT 92
--- NOTE | 2019-08-26 16:33 | NURSING ---
DONNELLY CATH D/C PER DOCTORS ORDER.
[2019-08-26] MEDS: Tamsulosin HCl 0.4 MG Capsule PO (17:15)
[2019-08-26] MEDS: Mirtazapine 15 MG Tablet 7.5 MG PO (21:57)
[2019-08-26] MEDS: MELATONIN 3 MG TABLET PO (21:57)
[2019-08-26] MEDS: RisperiDONE 1 MG Tablet PO (21:58)
[2019-08-27] MEDS: Acetaminophen 500 MG Tablet 1000 MG PO ×3 (05:32→21:13)
[2019-08-27] MEDS: lamoTRIgine 100 MG Tablet 200 MG PO (05:32)
[2019-08-27] MEDS: amLODIPine 5 MG Tablet PO (05:32)
[2019-08-27] MEDS: Pantoprazole Sodium 40 MG Tablet PO (05:32)
[2019-08-27] MEDS: Lisinopril 10 MG Tablet PO (05:32)
[2019-08-27] MEDS: FLUoxetine 20 MG Capsule PO (05:32)
[2019-08-27] MEDS: busPIRone 5 MG Tablet 10 MG PO ×2 (05:32→17:45)
[2019-08-27] MEDS: Ciprofloxacin 250 MG Tablet PO ×2 (05:32→17:45)
[2019-08-27] MEDS: TRIHEXYPHENIDYL HCL 2 MG TABLET PO ×2 (05:32→17:45)
[2019-08-27] MEDS: Menthol/Lanolin/Calamine/Znox 113 GM Tube 1 APPLIC TOPICAL ×2 (05:37→21:16)
[2019-08-27] MEDS: Iron Polysaccharide Complex 150 MG CAPSULE PO (08:34)
[2019-08-27 10:00] VITALS: PULSE 70; RESP 16; O2SAT 96
--- NOTE | 2019-08-27 11:22 | NURSING ---
Pt denied need to contact family with update.
[2019-08-27] MEDS: oxyCODONE 5 MG Tablet PO (12:37)
[2019-08-27 16:00] VITALS: BP 140/63; PULSE 72; RESP 16; TEMP 37.2; O2SAT 96
[2019-08-27] MEDS: Tamsulosin HCl 0.4 MG Capsule PO (17:45)
[2019-08-27] MEDS: APIXABAN 2.5 MG TABLET PO (17:45)
[2019-08-27] MEDS: MELATONIN 3 MG TABLET PO (21:13)
[2019-08-27] MEDS: Mirtazapine 15 MG Tablet 7.5 MG PO (21:13)
[2019-08-27] MEDS: RisperiDONE 1 MG Tablet PO (21:14)
[2019-08-28] MEDS: Ciprofloxacin 250 MG Tablet PO ×2 (05:23→17:30)
[2019-08-28] MEDS: Acetaminophen 500 MG Tablet 1000 MG PO ×3 (05:24→21:56)
[2019-08-28] MEDS: busPIRone 5 MG Tablet 10 MG PO ×2 (05:24→17:30)
[2019-08-28] MEDS: TRIHEXYPHENIDYL HCL 2 MG TABLET PO ×2 (05:24→17:31)
[2019-08-28] MEDS: Pantoprazole Sodium 40 MG Tablet PO (05:24)
[2019-08-28] MEDS: Lisinopril 10 MG Tablet PO (05:24)
[2019-08-28] MEDS: APIXABAN 2.5 MG TABLET PO ×2 (05:24→17:31)
[2019-08-28] MEDS: lamoTRIgine 100 MG Tablet 200 MG PO (05:24)
[2019-08-28] MEDS: Senna/Docusate Sodium 1 Tablet 2 TABLET PO (05:24)
[2019-08-28] MEDS: amLODIPine 5 MG Tablet PO (05:24)
[2019-08-28] MEDS: FLUoxetine 20 MG Capsule PO (05:27)
[2019-08-28] MEDS: Menthol/Lanolin/Calamine/Znox 113 GM Tube 1 APPLIC TOPICAL ×2 (05:28→20:19)
[2019-08-28] MEDS: Iron Polysaccharide Complex 150 MG CAPSULE PO (07:56)
[2019-08-28 09:08] VITALS: PULSE 78; RESP 16; O2SAT 95
[2019-08-28 14:45] VITALS: BP 119/63; PULSE 77; RESP 16; TEMP 36.7; O2SAT 96
[2019-08-28] MEDS: oxyCODONE 5 MG Tablet PO (15:21)
[2019-08-28] MEDS: Tamsulosin HCl 0.4 MG Capsule PO (17:30)
[2019-08-28] MEDS: Nystatin Powder 15gm Bottle 1 APPLIC TOPICAL (17:37)
[2019-08-28] MEDS: RisperiDONE 1 MG Tablet PO (20:14)
[2019-08-28] MEDS: Mirtazapine 15 MG Tablet 7.5 MG PO (20:16)
[2019-08-28] MEDS: MELATONIN 3 MG TABLET PO (21:56)
[2019-08-29] MEDS: Acetaminophen 500 MG Tablet 1000 MG PO ×3 (05:59→21:18)
[2019-08-29] MEDS: APIXABAN 2.5 MG TABLET PO ×2 (05:59→17:04)
[2019-08-29] MEDS: Pantoprazole Sodium 40 MG Tablet PO (06:00)
[2019-08-29] MEDS: Senna/Docusate Sodium 1 Tablet 2 TABLET PO ×2 (06:00→17:03)
[2019-08-29] MEDS: busPIRone 5 MG Tablet 10 MG PO ×2 (06:00→17:03)
[2019-08-29] MEDS: lamoTRIgine 100 MG Tablet 200 MG PO (06:00)
[2019-08-29] MEDS: Lisinopril 10 MG Tablet PO (06:01)
[2019-08-29] MEDS: Ciprofloxacin 250 MG Tablet PO ×2 (06:01→17:03)
[2019-08-29] MEDS: FLUoxetine 20 MG Capsule PO (06:01)
[2019-08-29] MEDS: amLODIPine 5 MG Tablet PO (06:01)
[2019-08-29] MEDS: TRIHEXYPHENIDYL HCL 2 MG TABLET PO ×2 (06:02→17:03)
[2019-08-29] MEDS: Nystatin Powder 15gm Bottle 1 APPLIC TOPICAL ×2 (06:03→17:05)
[2019-08-29] MEDS: Menthol/Lanolin/Calamine/Znox 113 GM Tube 1 APPLIC TOPICAL ×2 (06:03→21:22)
[2019-08-29] MEDS: Iron Polysaccharide Complex 150 MG CAPSULE PO (09:08)
--- NOTE | 2019-08-29 11:40 | NURSING ---
PT STATED TO THIS NURSE THERE WAS NO ONE TO CALL TO GIVE UPDATES ON HIM.
[2019-08-29 14:25] VITALS: BP 145/61; PULSE 99; RESP 14; TEMP 36.7; O2SAT 91
[2019-08-29] MEDS: Tamsulosin HCl 0.4 MG Capsule PO (17:03)
[2019-08-29] MEDS: RisperiDONE 1 MG Tablet PO (21:21)
[2019-08-29] MEDS: Mirtazapine 15 MG Tablet 7.5 MG PO (21:21)
[2019-08-29] MEDS: MELATONIN 3 MG TABLET PO (21:22)
[2019-08-29] MEDS: oxyCODONE 5 MG Tablet PO (21:27)
[2019-08-29 21:40] VITALS: PULSE 70; RESP 16; O2SAT 97
[2019-08-30] MEDS: amLODIPine 5 MG Tablet PO (05:14)
[2019-08-30] MEDS: Lisinopril 10 MG Tablet PO (05:14)
[2019-08-30] MEDS: APIXABAN 2.5 MG TABLET PO ×2 (05:14→17:21)
[2019-08-30] MEDS: TRIHEXYPHENIDYL HCL 2 MG TABLET PO ×2 (05:14→17:22)
[2019-08-30] MEDS: Pantoprazole Sodium 40 MG Tablet PO (05:14)
[2019-08-30] MEDS: FLUoxetine 20 MG Capsule PO (05:14)
[2019-08-30] MEDS: Ciprofloxacin 250 MG Tablet PO ×2 (05:15→17:21)
[2019-08-30] MEDS: Menthol/Lanolin/Calamine/Znox 113 GM Tube 1 APPLIC TOPICAL ×2 (05:15→20:45)
[2019-08-30] MEDS: busPIRone 5 MG Tablet 10 MG PO ×2 (05:15→17:20)
[2019-08-30] MEDS: Senna/Docusate Sodium 1 Tablet 2 TABLET PO (05:15)
[2019-08-30] MEDS: Acetaminophen 500 MG Tablet 1000 MG PO ×3 (05:15→20:41)
[2019-08-30] MEDS: lamoTRIgine 100 MG Tablet 200 MG PO (05:15)
[2019-08-30] MEDS: Polyethylene Glycol 3350 17 GM PACKET PO (05:15)
[2019-08-30] MEDS: Nystatin Powder 15gm Bottle 1 APPLIC TOPICAL ×2 (05:16→17:22)
[2019-08-30 05:20] VITALS: BP 125/69; PULSE 58; RESP 16; TEMP 36.6; O2SAT 93
[2019-08-30] MEDS: oxyCODONE 5 MG Tablet PO ×2 (06:49→22:05)
[2019-08-30] MEDS: Iron Polysaccharide Complex 150 MG CAPSULE PO (09:44)
[2019-08-30 10:00] VITALS: PULSE 85; RESP 18; O2SAT 95
--- NOTE | 2019-08-30 11:45 | NURSING ---
PT STATED THERE WAS NO ONE THAT HE WANTED ME TO CALL TO UPDATE.
[2019-08-30 15:54] VITALS: BP 127/74; PULSE 66; RESP 14; TEMP 36.4; O2SAT 92
[2019-08-30] MEDS: Tamsulosin HCl 0.4 MG Capsule PO (17:19)
[2019-08-30] MEDS: Mirtazapine 15 MG Tablet 7.5 MG PO (20:40)
[2019-08-30] MEDS: RisperiDONE 1 MG Tablet PO (20:41)
[2019-08-30] MEDS: MELATONIN 3 MG TABLET PO (20:41)
[2019-08-31] MEDS: busPIRone 5 MG Tablet 10 MG PO ×2 (05:04→17:41)
[2019-08-31] MEDS: Senna/Docusate Sodium 1 Tablet 2 TABLET PO (05:04)
[2019-08-31] MEDS: lamoTRIgine 100 MG Tablet 200 MG PO (05:04)
[2019-08-31] MEDS: FLUoxetine 20 MG Capsule PO (05:05)
[2019-08-31] MEDS: Lisinopril 10 MG Tablet PO (05:05)
[2019-08-31] MEDS: amLODIPine 5 MG Tablet PO (05:05)
[2019-08-31] MEDS: Acetaminophen 500 MG Tablet 1000 MG PO ×3 (05:05→21:48)
[2019-08-31] MEDS: Pantoprazole Sodium 40 MG Tablet PO (05:05)
[2019-08-31] MEDS: Ciprofloxacin 250 MG Tablet PO (05:05)
[2019-08-31] MEDS: TRIHEXYPHENIDYL HCL 2 MG TABLET PO ×2 (05:05→17:42)
[2019-08-31] MEDS: APIXABAN 2.5 MG TABLET PO ×2 (05:05→17:41)
[2019-08-31] MEDS: Menthol/Lanolin/Calamine/Znox 113 GM Tube 1 APPLIC TOPICAL ×2 (05:07→22:03)
[2019-08-31 05:08] VITALS: BP 137/77; PULSE 65; RESP 18; TEMP 37.5; O2SAT 93
[2019-08-31] MEDS: Nystatin Powder 15gm Bottle 1 APPLIC TOPICAL ×2 (05:08→17:40)
[2019-08-31] MEDS: Iron Polysaccharide Complex 150 MG CAPSULE PO (08:04)
[2019-08-31 13:39] VITALS: BP 109/66; PULSE 79; RESP 16; TEMP 36.9; O2SAT 97
[2019-08-31] MEDS: Tamsulosin HCl 0.4 MG Capsule PO (17:42)
[2019-08-31] MEDS: RisperiDONE 1 MG Tablet PO (21:49)
[2019-08-31] MEDS: Mirtazapine 15 MG Tablet 7.5 MG PO (21:51)
[2019-08-31] MEDS: MELATONIN 3 MG TABLET PO (21:52)
[2019-08-31 21:57] VITALS: PULSE 66; O2SAT 95
[2019-09-01 06:23] VITALS: BP 151/76; PULSE 68; RESP 16; TEMP 36.6; O2SAT 94
[2019-09-01] MEDS: TRIHEXYPHENIDYL HCL 2 MG TABLET PO ×2 (06:26→18:08)
[2019-09-01] MEDS: Acetaminophen 500 MG Tablet 1000 MG PO ×3 (06:26→20:10)
[2019-09-01] MEDS: APIXABAN 2.5 MG TABLET PO ×2 (06:26→18:07)
[2019-09-01] MEDS: lamoTRIgine 100 MG Tablet 200 MG PO (06:26)
[2019-09-01] MEDS: busPIRone 5 MG Tablet 10 MG PO ×2 (06:26→18:07)
[2019-09-01] MEDS: amLODIPine 5 MG Tablet PO (06:26)
[2019-09-01] MEDS: FLUoxetine 20 MG Capsule PO (06:26)
[2019-09-01] MEDS: Pantoprazole Sodium 40 MG Tablet PO (06:28)
[2019-09-01] MEDS: Menthol/Lanolin/Calamine/Znox 113 GM Tube 1 APPLIC TOPICAL ×2 (06:28→20:12)
[2019-09-01] MEDS: Nystatin Powder 15gm Bottle 1 APPLIC TOPICAL ×2 (06:29→18:08)
[2019-09-01] MEDS: Lisinopril 10 MG Tablet PO (07:50)
[2019-09-01] MEDS: Iron Polysaccharide Complex 150 MG CAPSULE PO (08:08)
[2019-09-01 09:55] VITALS: PULSE 70; RESP 16; O2SAT 97
[2019-09-01 15:43] VITALS: BP 130/83; PULSE 70; RESP 18; TEMP 36.7; O2SAT 94
[2019-09-01] MEDS: Tamsulosin HCl 0.4 MG Capsule PO (18:07)
[2019-09-01] MEDS: RisperiDONE 1 MG Tablet PO (20:10)
[2019-09-01] MEDS: MELATONIN 3 MG TABLET PO (20:10)
[2019-09-01] MEDS: Mirtazapine 15 MG Tablet 7.5 MG PO (20:11)
[2019-09-02] MEDS: TRIHEXYPHENIDYL HCL 2 MG TABLET PO (05:07)
[2019-09-02] MEDS: FLUoxetine 20 MG Capsule PO (05:07)
[2019-09-02] MEDS: lamoTRIgine 100 MG Tablet 200 MG PO (05:07)
[2019-09-02] MEDS: busPIRone 5 MG Tablet 10 MG PO (05:07)
[2019-09-02] MEDS: Acetaminophen 500 MG Tablet 1000 MG PO (05:07)
[2019-09-02] MEDS: APIXABAN 2.5 MG TABLET PO (05:07)
[2019-09-02] MEDS: amLODIPine 5 MG Tablet PO (05:07)
[2019-09-02] MEDS: Lisinopril 10 MG Tablet PO (05:07)
[2019-09-02] MEDS: Pantoprazole Sodium 40 MG Tablet PO (05:07)
[2019-09-02] MEDS: Menthol/Lanolin/Calamine/Znox 113 GM Tube 1 APPLIC TOPICAL (05:09)
[2019-09-02 05:10] VITALS: BP 153/95; PULSE 71; RESP 20; TEMP 36.7; O2SAT 94
[2019-09-02] MEDS: Nystatin Powder 15gm Bottle 1 APPLIC TOPICAL (05:10)
[2019-09-02 05:11] VITALS: PULSE 71; O2SAT 95
[2019-09-02] MEDS: Iron Polysaccharide Complex 150 MG CAPSULE PO (07:52)
[2019-09-02 10:15] VITALS: BP 159/87; PULSE 80; RESP 18; TEMP 36.7; O2SAT 91
== END 2019-09-02 10:50 | disposition home health service (06) | DRG 560 ==
PROVIDERS: Admitting Provider Family Medicine Geriatric Medicine; PCP Internal Medicine; Visit Provider Family Medicine Geriatric Medicine
DX: S72.002D Fracture of unspecified part of neck of left femur, subsequent encounter for closed fracture with routine healing (principal); E87.1 Hypo-osmolality and hyponatremia; N39.0 Urinary tract infection, site not specified; D62 Acute posthemorrhagic anemia; W18.30XD Fall on same level, unspecified, subsequent encounter; K21.9 Gastro-esophageal reflux disease without esophagitis; I10 Essential (primary) hypertension; G40.909 Epilepsy, unspecified, not intractable, without status epilepticus; K58.9 Irritable bowel syndrome, unspecified; F41.9 Anxiety disorder, unspecified; J44.9 Chronic obstructive pulmonary disease, unspecified; F32.9 Major depressive disorder, single episode, unspecified; F17.210 Nicotine dependence, cigarettes, uncomplicated; F10.10 Alcohol abuse, uncomplicated; Z23 Encounter for immunization; B96.20 Unspecified Escherichia coli [E. coli] as the cause of diseases classified elsewhere; N40.1 Benign prostatic hyperplasia with lower urinary tract symptoms; R33.8 Other retention of urine
CPT/HCPCS: 36415; 80048; 81001; 85025; 87086; 87088; 87186; 87635; 92507; 92523; 92610; 97110; 97116; 97162; 97166; 97530; 97535; 97802; 99406; G0009; G2023; 90670; U0002; U0004

== ENCOUNTER 2019-09-12 14:59 | Observation (INO) | payer MEDICARE, MEDICAID, SELFPAY ==
--- NOTE | 2019-09-12 06:00 | RAD_ITS ---
STUDY: X-RAY CHEST REASON FOR EXAM: Male, 73 years old. COUGH TECHNIQUE: Single AP portable view of the chest. COMPARISON: August 10, 2019 FINDINGS: Stable left cortical plate-screw construct. Stable osseous structures. Fractures in the distal left clavicle cortical plate-screw construct reidentified. There are moderate interstitial fibrotic changes of the lungs. There is no demonstrated pleural abnormality. No visualized consolidation or new opacity. Normal size heart. Stable visualized osseous and mediastinal structures. RAD/Chest 1 View (Portable) IMPRESSION: Chronic fibrotic changes of the lungs Electronically Signed: Herbert Mendiola MD at 16:30 EDT , Service support ,
[2019-09-12 15:00] VITALS: BP 139/87; PULSE 89; RESP 20; TEMP 36.8; O2SAT 93
--- NOTE | 2019-09-12 15:21 | EKG12_ITS ---
Test Reason : CONFUSION Blood Pressure : / mmHG Vent. Rate : 080 BPM Atrial Rate : 080 BPM P-R Int : 200 ms QRS Dur : 072 ms QT Int : 352 ms P-R-T Axes : 049 -18 018 degrees QTc Int : 405 ms Normal sinus rhythm Inferior infarct , age undetermined, cannot be excluded Abnormal ECG Confirmed by DIPAK SPRINGER, JENNIFER ([id number]), editor producer KARINE KABA ([id number]) on 09/13/2019 3:35:06 PM Referred By: Confirmed By:JENNIFER QUESADA MD
--- NOTE | 2019-09-12 15:21 | CT_ITS ---
STUDY: CT BRAIN WITHOUT CONTRAST REASON FOR EXAM: Male, 73 years old. ALTERED MENTAL STATUS, FOUND BY NEIGHBOR DISORIENTED, HX-WERNICKE ENCEPHALOPATHY, ALCOHOL ABUSE, COPD, SZ RADIATION DOSAGE (If Supplied By Facility): CTDIvol = ( 44.99 ) mGy, DLP = ( 779.24 ) mGycm TECHNIQUE: Transaxial CT imaging of the brain was performed without administration of intravenous contrast material. Individualized dose optimization techniques were used for this CT. COMPARISON: Head CT dated February 02, 2018 FINDINGS: Normal soft tissue structures. Normal calvarium. There is moderate cerebral atrophy with widening of the extra-axial spaces and ventricular dilatation. There are moderate to significant areas of decreased attenuation within the white matter tracts of the supratentorial brain, consistent with microvascular disease changes. 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 Patchy ischemic changes are also present in the right basal ganglia. Normal brainstem. Normal cerebellum. There is no intracranial hemorrhage. There are no findings of an acute ischemic infarction. Normal visualized paranasal sinuses. CT/Brain/Head without Contrast IMPRESSION: Chronic involutional changes of the brain. Electronically Signed: Herbert Mendiola MD at 16:35 EDT , Service support ,
--- NOTE | 2019-09-12 15:35 | ED.VISSUMM ---
- ER Visit Summary Date of Service: 09/12/19 Chief Complaint: Altered mental status History of Present Illness: The patient is a 73 M presenting with altered mental status. Patient states his neighbor checked on him this morning. He was still in bed. According to neighbor he was confused and she called EMS. Questionable seizure. Patient has a history of infrequent seizures with the last being several years ago. He has a history of alcohol use his last drink was 3 days ago. He denies recent trauma. He has had a dry cough. Denies fever. Denies chest pain or shortness of breath. Denies other complaints. Physical Examination: Vitals are stable. Patient is afebrile. Alert no acute distress. HEENT exam is unremarkable. Neck is supple. Lungs are clear and equal bilaterally. Heart is regular rate and rhythm. Abdomen is soft nontender nondistended. Extremities are unremarkable. Skin is warm and dry. No focal neurologic deficit. NIH 0 Remainder of exam is unremarkable. Emergency Department Course and Treatment: EKG is sinus rhythm rate of 88 with no acute ischemic changes. CBC, chemistries unremarkable. Troponin is negative. Alcohol negative. Chest xray shows chronic fibrotic changes of the lungs. CT head shows chronic changes. Urinalysis is pending. Due to concern for alcohol withdrawal with possible seizure discussed with the hospitalist for observation. Disposition: Observation Impression: Altered mental status This note was generated with Frequent Browser dictation software. It may contain incorrect words, spelling, and punctuation that were not noted in review of the chart prior to signing ED Disposition - Plan for ED Patient: Referrals: Jhonatan Zapien MD [Primary Care Provider] -
[2019-09-12 15:52] LABS: Absolute Lymphocyte Count 2.34 X10^3/uL (0.83-4.51); Absolute Neutrophil Count 3.6 X10^3/uL (2.0-7.7); Basophil# 0.06 X10^3/uL; Basophil% 0.8 % (0-1); Eosinophil# 0.49 X10^3/uL; Eosinophils% 6.7 % (0-5); Hematocrit 38.8 % (40-54); Hemoglobin 12.2 g/dL (13.0-16.5); Lymphocyte # 2.34 X10^3/ul (4.0); Lymphocyte % 32.2 % (19-41); Mean Corp Hgb Conc 31.4 g/dL (32-36); Mean Corpuscular Hgb 30.3 pg (27.0-32.0); Mean Corpuscular Volume 96.5 fL (80-94); Mean Platelet Vol. 9.2 fl (6.2-12.0); Monocyte# 0.71 X10^3/uL; Monocyte% 9.8 % (0-10); NRBC Flagged by Analyzer 0 % (0-5); Neutrophil # 3.64 X10^3/uL (2.7-7.7); Neutrophil % 50.1 % (47-70); Platelet Count 404 K/mm3 (150-450); RBC Distribution Width CV 15.6 % (11.6-14.6); RBC Distribution Width SD 55.3 fl (35.1-43.9); Red Blood Count 4.02 M/mm3 (4.6-6.2); White Blood Count 7.3 K/mm3 (4.4-11.0)
[2019-09-12 16:07] LABS: Anion Gap 4 (5-15); BUN 8 mg/dL (7-18); BUN/Creat Ratio 7.1 RATIO (10-20); Calcium,Total 10.5 mg/dL (8.5-10.1); Chloride 104 mmol/L (98-107); Creatinine, Serum 1.13 mg/dL (0.70-1.30); EST Glomerular Filtration Rate 68 mL/min (>60); Est Glom Filt Rate - Afr Amer 82 mL/min (>60); Estimated Creatinine Clearance 46.36 ml/min; Glucose 91 mg/dL (74-106); Sodium Level 138 mmol/L (136-145)
[2019-09-12 16:29] LABS: Alcohol, Blood (Medical)-Serum < 3.0 mg/dL
[2019-09-12 16:52] LABS: Bacteria 0 SEEN /hpf (None Seen); Mucous, Urine 0 SEEN /hpf (<or=2+); Red Blood Cells-Urine 0 SEEN /hpf (0-5); White Blood Cells 0 SEEN /hpf (0-5)
[2019-09-12 16:58] LABS: Color, Urine Straw (Yellow); Glucose, Dipstick Normal (Normal); Ketone-Dipstick Negative (Negative); Leukocyte Esterase-Dipstick Negative /ul (Negative); Nitrite-Dipstick Negative (Negative); Occult Blood-Urine Negative /ul (Negative); Protein-Dipstick Negative (Negative); Urine Bilirubin Dipstick Negative (Negative); Urine Clarity Clear (Clear); Urine Urobilinogen Normal (Normal)
[2019-09-12 17:04] VITALS: BP 139/80; PULSE 84; RESP 18; TEMP 36.8; O2SAT 96
[2019-09-12 17:07] LABS: Squamous Epithelial Cells - UA 0-5 SEEN /hpf (0-5)
[2019-09-12 17:21] LABS: Amphetamine Urine VISTA NEGATIVE (<1000 ng/mL); Barbiturate Urine VISTA NEGATIVE (< 200 ng/mL); Benzodiazepine Urine VISTA NEGATIVE (< 200 ng/mL); Cocaine Urine VISTA NEGATIVE (< 300 ng/mL); Ecstacy Urine VISTA NEGATIVE (< 500 ng/mL); Methadone Urine VISTA NEGATIVE (< 300 ng/mL); PCP Urine VISTA NEGATIVE (< 25 ng/mL); THC Urine VISTA NEGATIVE (< 50 ng/mL); Vista UDS pH Range 6
--- NOTE | 2019-09-12 17:32 | PCM.HP.STD ---
<Fabiola Burnette - Last Filed: 09/12/19 17:55> Problem List (1) Debility Status: Chronic (2) Closed left hip fracture Status: Resolved (3) Anxiety Status: Chronic (4) Dizziness Status: Chronic (5) History of kidney stones Status: Chronic (6) IBS (irritable bowel syndrome) Status: Chronic (7) GERD (gastroesophageal reflux disease) Status: Chronic (8) Depression Status: Chronic (9) Anemia Status: Chronic (10) Hypertension Status: Chronic (11) Cholelithiasis Status: Resolved (12) Chronic obstructive pulmonary disease (COPD) Status: Chronic (13) Benzodiazepine withdrawal Status: Resolved (14) Wernicke encephalopathy Status: Chronic (15) Alcohol abuse Status: Chronic (16) Seizure disorder Status: Chronic (17) Tobacco abuse Status: Chronic History of Present Illness Date of Admission: 09/12/19 Chief Complaint: Recurrent falls. The patient is a 73 year old M who presents emergency room with concern for altered mental status and recurrent falls. During assessment in emergency room, patient was alert and oriented and asking to return home. He does report he fell approximately 2 days ago and denies any injury. Patient was recently admitted secondary to mechanical fall resulting in left femur intertrochanter fracture status post repair 08/11/2019. He went to TCU for rehab at that time and was discharged from TCU 08/26/2019. Patient's sister reports concerns of recurrent falls at home. Per patient's neighbor and EMS, patient was confused and not acting himself earlier today. No seizure activity was reported. Patient himself denies any symptoms. States he is not drink any alcohol in several weeks. He has a past medical history of hypertension, history of seizures, anxiety, depression, GERD, chronic alcohol abuse, BPH. Past Medical History Past Medical History (Chronic Problems): Chronic Problems (Last Reviewed 08/10/19 @ 15:[address] Mario Gill, DO) Debility (Chronic) Anxiety (Chronic) Dizziness (Chronic) History of kidney stones (Chronic) IBS (irritable bowel syndrome) (Chronic) GERD (gastroesophageal reflux disease) (Chronic) Depression (Chronic) Anemia (Chronic) Hypertension (Chronic) Chronic obstructive pulmonary disease (COPD) (Chronic) Wernicke encephalopathy (Chronic) Alcohol abuse (Chronic) Seizure disorder (Chronic) Tobacco abuse (Chronic) Medical History: Medical History (Last Reviewed 08/10/19 @ 15:[address] Mario Gill, DO) History of kidney stones (Acute) Z87.442 IBS (irritable bowel syndrome) (Chronic) K58.9 Seizures (Acute) R56.9 last one was years ago GERD (gastroesophageal reflux disease) (Chronic) K21.9 History of pneumonia (Acute) Z87.01 Depression (Chronic) F32.9 Anemia (Acute) D64.9 Hypertension (Chronic) I10 Anxiety F41.9 History of alcohol abuse F10.11 History of fracture of clavicle Z87.81 Vitamin D deficiency E55.9 Allergies bupropion HCl [From Wellbutrin] Allergy (Verified 09/12/19 15:03) Unknown quetiapine fumarate [From Seroquel] Allergy (Verified 09/12/19 15:03) Unknown trazodone Adverse Reaction (Verified 09/12/19 15:03) Other Home Medications: Ambulatory Orders Medication Instructions Recorded Amlodipine [Norvasc] 5 mg PO DAILY 08/10/19 Buspirone HCl 10 mg PO BID 08/10/19 Fluoxetine HCl [Prozac] 20 mg PO DAILY 08/10/19 Lamotrigine [Lamictal] 200 mg PO DAILY 08/10/19 Omeprazole 40 mg PO DAILY 08/10/19 Risperidone 1 mg PO QHS 08/10/19 Trihexyphenidyl HCl 2 mg PO BID 08/10/19 Acetaminophen [Tylenol] 1,000 mg PO Q8 tab 08/26/19 Apixaban [Eliquis] 2.5 mg PO BID #24 tab 08/26/19 Iron Polysaccharide Complex 150 mg PO DAILYCM #30 cap 08/26/19 [Ferrex 150] Lisinopril [Zestril] 10 mg PO DAILY #30 tab 08/26/19 Melatonin 3 mg PO QHS tab 08/26/19 Menthol/Lanolin/Calamine/Znox 1 applic TOPICAL 0600,2200 tube 08/26/19 [Calmoseptine Ointment] Mirtazapine [Remeron] 7.5 mg PO QHS #30 tab 08/26/19 Tamsulosin HCl [Flomax] 0.4 mg PO DAILY@1730 #30 cap 08/26/19 Surgical History: Surgical History (Last Reviewed 08/10/19 @ 15:[address] Mario Gill, DO) History of intestinal surgery Z98.890 due to blockage History of tonsillectomy Z90.89 Surgical History: tonsillectomy, - - Umbilical hernia repair, bowel resection secondary to small bowel obstruction, ORIF left clavicle fracture, ileocecal resection via CT scan evaluation, cephalo-medullary nail fixation left hip. Psychiatric History: Anxiety, Depression Lives: Alone Smoking Status: Current every day smoker Alcohol: None - None recent, chronic alcohol abuse Drugs: None - *Family History Maternal Family History: Family History (Last Reviewed 09/12/19 @ 17:47 by ROMEO Garduno) Other Anemia Anxiety Breast cancer Cancer Depression Hypertension Osteoporosis History Items: Cancer, Hypertension Paternal Family History: Family History (Last Reviewed 09/12/19 @ 17:47 by ROMEO Garduno) Other Anemia Anxiety Breast cancer Cancer Depression Hypertension Osteoporosis History Items: Cancer, Hypertension Review of Systems Constitutional: Denies: Chills, Fever, Weight Change HEENT: Denies: Head Aches, Sinus Congestion, Sinus Drainage Cardiovascular: Denies: Chest Pain, Palpitations Respiratory: Denies: Cough, Shortness of breath at rest, Sputum production Gastrointestinal: Denies: Abdominal Pain, Nausea, Vomiting Genitourinary: Denies: Dysuria Musculoskeletal: Denies: Joint Pain, Joint Tenderness Skin: Denies: Rash, Wounds Neurological: Denies: Numbness, Tingling, Focal weakness Psychiatric: Denies: Anxiety, Depression, Homicidal Ideations, Suicidal Ideations Hematologic/ Lymphatic: Denies: Easy Bruising, Easy Bleeding VTE Information - Inpt Only VTE Present on Admission: No VTE Mechan Device Prophylaxis: None VTE Pharm Prophylaxis ordered?: No Reason prophylaxis not ordered:: Treatment Not Indicated - Patient already on Eliquis - Physical Exam Vitals/I&O's: Vital Signs Temp Pulse Resp BP Pulse Ox 98.3 F 84 18 139/80 H 96 09/12/19 17:04 09/12/19 17:04 09/12/19 17:04 09/12/19 17:04 09/12/19 17:04 Oxygen Delivery Method Room Air Weight: 124 lb 1.924 oz Body Mass Index (BMI) 20.0 Finger Stick Blood Glucose 152 Intake and Output for Last 24 Hours 09/10/19 09/11/19 09/12/19 23:59 23:59 23:59 Intake Total 500 / 500 Balance 500 / 500 General: Alert, Oriented x3, Cooperative HEENT: Atraumatic, PERRLA, EOMI, Normocephalic Oral: Dry Mucosa Neck: Supple, No JVD, Negative Carotid Bruits Lungs: Clear to auscultation, Normal air movement Cardiovascular: Regular rate, No murmurs Abdomen: Bowel Sounds Present, Soft, Non Tender Extremities: No clubbing, No cyanosis, No edema, Capillary Refill Less than 3 Seconds Skin: No rashes, No breakdown Musculoskeletal: No Tenderness to Palpation of Joints or Extremities Neurological: Cranial nerves II-XII grossly intact, Neuro grossly intact Psych/Mental Status: Normal Affect, Appropriate Laboratory Results 09/12/19 15:36: WBC 7.3, RBC 4.02 L, Hgb 12.2 L, Hct 38.8 L, MCV 96.5 H, MCH 30.3, MCHC 31.4 L, RDW Std Deviation 55.3 H, RDW Coeff of Dariela 15.6 H, Plt Count 404, MPV 9.2, Immature Gran % (Auto) 0.400, Neut % (Auto) 50.1, Lymph % (Auto) 32.2, [place] % (Auto) 9.8, Eos % (Auto) 6.7 H, Baso % (Auto) 0.8, Absolute Neuts (auto) 3.6, Absolute Lymphs (auto) 2.34, Nucleated RBC % 0 09/12/19 15:36: Sodium 138, Potassium 5.0, Chloride 104, Carbon Dioxide 30.0, Anion Gap 4 L, BUN 8, Creatinine 1.13, Estim Creat Clear Calc 46.36, Est GFR (MDRD) Af Amer 82, Est GFR (MDRD) Non-Af 68, BUN/Creatinine Ratio 7.1 L, Glucose 91, Calcium 10.5 H, Troponin I < 0.015 09/12/19 15:36: Ethyl Alcohol < 3.0 09/12/19 16:45: Urine Color Straw, Urine Clarity Clear, Urine pH 7.0, Ur Specific [place] 1.010, Urine Protein Negative, Urine Glucose (UA) Normal, Urine Ketones Negative, Urine Occult Blood Negative, Urine Nitrite Negative, Urine Bilirubin Negative, Urine Urobilinogen Normal, Ur Leukocyte Esterase Negative, Urine RBC 0 SEEN, Urine WBC 0 SEEN, Ur Squamous Epith Cells 0-5 SEEN, Urine Bacteria 0 SEEN, Urine Mucus 0 SEEN 09/12/19 16:45: Urine Opiates Screen NEGATIVE, Urine Methadone Screen NEGATIVE, Ur Barbiturates Screen NEGATIVE, Ur Phencyclidine Scrn NEGATIVE, Ur Amphetamines Screen NEGATIVE, U Methamphetamin-MDMA NEGATIVE, U Benzodiazepines Scrn NEGATIVE, Urine Cocaine Screen NEGATIVE, U Cannabinoids Screen NEGATIVE, Ur Drug Screen Comment Assessment/Plan All Active Problems (Last Reviewed 08/10/19 @ 15:[address] Mario Gill, DO) Benzodiazepine withdrawal (Resolved) Cholelithiasis (Resolved) Closed left hip fracture (Resolved) 1. Debility with recurrent falls-recent admission for left femur intertrochanter fracture status post repair 08/11/2019. PT/OT. Case management consult for discharge planning. Patient recently discharged from TCU 08/26/2019. He denies any recent injury with falls. Denies pain. Fall precautions. 2. Reported Altered mental status-patient alert and oriented during assessment in ER. Urinalysis, tox screen, CBC/BMP unremarkable. Chest x-ray with chronic changes. Brain CT with chronic changes. Unclear etiology of prior reported confusion. 3. Possible Parkinson's? patient is on trihexyphenidyl which was recently started by psychiatric nurse practitioner, Salud Dunn. Unclear why patient was started on this. Will request records. 4. History of seizures-patient denies recent seizure history. Reports his last seizure was several years ago. Continue home Lamictal regimen. 5. Chronic alcohol abuse-denies recent use. Alcohol level negative on admission. CIWA monitoring. 6. Hypertension-stable, continue amlodipine, lisinopril regimen. 7. Anxiety/Depression-continue buspirone, fluoxetine, risperidone. 8. GERD-continue PPI. 9. BPH-continue Flomax regimen. DVT prophylaxis- Eliquis This patient was seen by ROMEO Garduno under the supervision of Dr. Woodard. <Slime Woodard - Last Filed: 09/12/19 18:21> History of Present Illness The patient is a 73 year old M [] Past Medical History Medical History: Medical History (Last Reviewed 08/10/19 @ 15:[address] Mario Gill DO) History of kidney stones (Acute) Z87.442 IBS (irritable bowel syndrome) (Chronic) K58.9 Seizures (Acute) R56.9 last one was years ago GERD (gastroesophageal reflux disease) (Chronic) K21.9 History of pneumonia (Acute) Z87.01 Depression (Chronic) F32.9 Anemia (Acute) D64.9 Hypertension (Chronic) I10 Anxiety F41.9 History of alcohol abuse F10.11 History of fracture of clavicle Z87.81 Vitamin D deficiency E55.9 Allergies bupropion HCl [From Wellbutrin] Allergy (Verified 09/12/19 15:03) Unknown quetiapine fumarate [From Seroquel] Allergy (Verified 09/12/19 15:03) Unknown trazodone Adverse Reaction (Verified 09/12/19 15:03) Other Surgical History: Surgical History (Last Reviewed 08/10/19 @ 15:[address] Mario Gill DO) History of intestinal surgery Z98.890 due to blockage History of tonsillectomy Z90.89 - *Family History Maternal Family History: Family History (Last Reviewed 09/12/19 @ 17:47 by ROMEO Garduno) Other Anemia Anxiety Breast cancer Cancer Depression Hypertension Osteoporosis Paternal Family History: Family History (Last Reviewed 09/12/19 @ 17:47 by ROMEO Garduno) Other Anemia Anxiety Breast cancer Cancer Depression Hypertension Osteoporosis - Physical Exam Vitals/I&O's: Vital Signs Temp Pulse Resp BP Pulse Ox 98.3 F 84 18 139/80 H 96 09/12/19 17:04 09/12/19 17:04 09/12/19 17:04 09/12/19 17:04 09/12/19 17:04 Oxygen Delivery Method Room Air Weight: 124 lb 1.924 oz Body Mass Index (BMI) 20.0 Finger Stick Blood Glucose 152 Intake and Output for Last 24 Hours 09/10/19 09/11/19 09/12/19 23:59 23:59 23:59 Intake Total 500 / 500 Balance 500 / 500 Laboratory Results 09/12/19 15:36: WBC 7.3, RBC 4.02 L, Hgb 12.2 L, Hct 38.8 L, MCV 96.5 H, MCH 30.3, MCHC 31.4 L, RDW Std Deviation 55.3 H, RDW Coeff of Dariela 15.6 H, Plt Count 404, MPV 9.2, Immature Gran % (Auto) 0.400, Neut % (Auto) 50.1, Lymph % (Auto) 32.2, [place] % (Auto) 9.8, Eos % (Auto) 6.7 H, Baso % (Auto) 0.8, Absolute Neuts (auto) 3.6, Absolute Lymphs (auto) 2.34, Nucleated RBC % 0 09/12/19 15:36: Sodium 138, Potassium 5.0, Chloride 104, Carbon Dioxide 30.0, Anion Gap 4 L, BUN 8, Creatinine 1.13, Estim Creat Clear Calc 46.36, Est GFR (MDRD) Af Amer 82, Est GFR (MDRD) Non-Af 68, BUN/Creatinine Ratio 7.1 L, Glucose 91, Calcium 10.5 H, Troponin I < 0.015 09/12/19 15:36: Ethyl Alcohol < 3.0 09/12/19 16:45: Urine Color Straw, Urine Clarity Clear, Urine pH 7.0, Ur Specific [place] 1.010, Urine Protein Negative, Urine Glucose (UA) Normal, Urine Ketones Negative, Urine Occult Blood Negative, Urine Nitrite Negative, Urine Bilirubin Negative, Urine Urobilinogen Normal, Ur Leukocyte Esterase Negative, Urine RBC 0 SEEN, Urine WBC 0 SEEN, Ur Squamous Epith Cells 0-5 SEEN, Urine Bacteria 0 SEEN, Urine Mucus 0 SEEN 09/12/19 16:45: Urine Opiates Screen NEGATIVE, Urine Methadone Screen NEGATIVE, Ur Barbiturates Screen NEGATIVE, Ur Phencyclidine Scrn NEGATIVE, Ur Amphetamines Screen NEGATIVE, U Methamphetamin-MDMA NEGATIVE, U Benzodiazepines Scrn NEGATIVE, Urine Cocaine Screen NEGATIVE, U Cannabinoids Screen NEGATIVE, Ur Drug Screen Comment Assessment/Plan Patient seen by Fabiola WALTERS under my supervision Patient was admitted via the ED on 09/12/2019 with a complaint of altered mental status. His girlfriend called the squad reportedly because she found him comatose. Patient was however alert and oriented in the ED, and had no complaints. He went to TCU for rehab after a left intertrochanteric fracture s/o repair and was discharged from TCU on 08/26/2019. Patient did not want to be admitted initially, as he didnt think he had any problem. His sister apparently called and said patient had been falling at home, and they were concerned about withdrawal from klonopin which had been stopped recently. He hasnt drank alcohol in over 6 weeks. Review of systems was otherwise negative. O/E: Vital Signs Temp Pulse Resp BP Pulse Ox 98.3 F 84 18 139/80 H 96 09/12/19 17:04 09/12/19 17:04 09/12/19 17:04 09/12/19 17:04 09/12/19 17:04 General: Alert, Oriented x3, Cooperative HEENT: Atraumatic, PERRLA, EOMI, Normocephalic Oral: Dry Mucosa Neck: Supple, No JVD, Negative Carotid Bruits Lungs: Clear to auscultation, Normal air movement Cardiovascular: Regular rate, No murmurs Abdomen: Bowel Sounds Present, Soft, Non Tender Extremities: No clubbing, No cyanosis, No edema, Capillary Refill Less than 3 Seconds Skin: No rashes, No breakdown Musculoskeletal: No Tenderness to Palpation of Joints or Extremities Neurological: Cranial nerves II-XII grossly intact, Neuro grossly intact Psych/Mental Status: Normal Affect, Appropriate Will admit to Med surg and manage for debility due to mechanical falls. consult PT/OT. fall precautions. Urine tox was negative, Brain CT showed no acute findings. Patient is alert and oriented x 3 and there is no evidence of acute metabolic encephalopathy. rest of management as per Fabiola Burnette [employer] EQUIPMENT OPERATOR-c's note, which I have reviewed endorsed. OBSV E&M: [id number] Initial observation care L2
[2019-09-12 18:30] VITALS: BP 113/63; PULSE 92; RESP 16; TEMP 36.8; O2SAT 113
[2019-09-12 18:38] VITALS: BMI 20.7
[2019-09-12 18:42] VITALS: BMI 20.7
[2019-09-12 19:00] VITALS: PULSE 84
[2019-09-12 19:17] LABS: Vitamin D,25 Hydroxy 24.4 ng/mL
[2019-09-12 19:41] LABS: Magnesium 1.9 mg/dL (1.6-2.6)
[2019-09-12 21:10] VITALS: BP 109/66; PULSE 71; RESP 16; TEMP 36.3; O2SAT 96
[2019-09-12] MEDS: APIXABAN 2.5 MG TABLET PO (21:11)
[2019-09-12] MEDS: busPIRone 5 MG Tablet 10 MG PO (21:11)
[2019-09-12] MEDS: Mirtazapine 15 MG Tablet 7.5 MG PO (21:12)
[2019-09-12] MEDS: TRIHEXYPHENIDYL HCL 2 MG TABLET PO (21:12)
[2019-09-12] MEDS: RisperiDONE 1 MG Tablet PO (21:13)
[2019-09-13] VITALS: BP 114/59; PULSE 66; RESP 16; TEMP 36.6; O2SAT 96
[2019-09-13 04:00] VITALS: BP 108/52; PULSE 69; RESP 17; TEMP 36.4; O2SAT 93
[2019-09-13] MEDS: Acetaminophen 325 MG Tablet 650 MG PO (04:01)
[2019-09-13 06:20] LABS: Thyroid Stim Hormone (TSH) 1.81 uIU/mL (0.358-3.74)
[2019-09-13 06:26] VITALS: BP 118/66; PULSE 63; RESP 16; TEMP 37; O2SAT 94
[2019-09-13 09:41] VITALS: BP 133/77; PULSE 62; RESP 14; TEMP 36.7; O2SAT 94
[2019-09-13] MEDS: APIXABAN 2.5 MG TABLET PO (09:44)
[2019-09-13] MEDS: busPIRone 5 MG Tablet 10 MG PO (09:44)
[2019-09-13] MEDS: amLODIPine 5 MG Tablet PO (09:44)
[2019-09-13] MEDS: FLUoxetine 20 MG Capsule PO (09:44)
[2019-09-13] MEDS: Pantoprazole Sodium 40 MG Tablet PO (09:44)
[2019-09-13] MEDS: lamoTRIgine 100 MG Tablet 200 MG PO (09:44)
[2019-09-13] MEDS: Iron Polysaccharide Complex 150 MG CAPSULE PO (09:44)
[2019-09-13] MEDS: TRIHEXYPHENIDYL HCL 2 MG TABLET PO (09:45)
[2019-09-13] MEDS: Lisinopril 10 MG Tablet PO (09:45)
--- NOTE | 2019-09-13 13:53 | CASEMGMT ---
Addendum entered by Ml Iniguez 09/13/19 14:26: Pt is A/Ox4 at this time and answers questions appropriately. Pt states uses [facility] at home all the time. Advised pt that family is concerned about him falling at home and pt states 'they are crazy and none of them even lives close.' Sonia MCCANN CM Original Note: Pt is already active with [facility] for SN, PT/OT/ST and Soraya at [facility] aware that pt will discharge back home, voices understanding. Pt is OBS so EDUAR order not needed at this time. Sonia MCCANN CM
--- NOTE | 2019-09-13 14:14 | DCINST_ITS ---
You will use the following diet at home:: No restrictions Discharge Activity: Return to Normal Activity Call your doctor if you observe: Shortness of breath, Dizziness, Swelling in the ankles, Chest pain Allergies/Adverse Reactions: Allergies bupropion HCl [From Wellbutrin] Allergy (Verified 09/12/19 15:03) Unknown quetiapine fumarate [From Seroquel] Allergy (Verified 09/12/19 15:03) Unknown trazodone Adverse Reaction (Verified 09/12/19 15:03) Other Medications to take at Discharge Amlodipine [Norvasc] 5 mg PO DAILY 08/10/19 Buspirone HCl 10 mg PO BID 08/10/19 Fluoxetine HCl [Prozac] 20 mg PO DAILY 08/10/19 Lamotrigine [Lamictal] 200 mg PO DAILY 08/10/19 Omeprazole 40 mg PO DAILY 08/10/19 Risperidone 1 mg PO QHS 08/10/19 Trihexyphenidyl HCl 2 mg PO BID 08/10/19 Acetaminophen [Tylenol] 1,000 mg PO Q8 tab 08/26/19 Apixaban [Eliquis] 2.5 mg PO BID #24 tab 08/26/19 Iron Polysaccharide Complex [Ferrex 150] 150 mg PO DAILYCM #30 cap 08/26/19 Lisinopril [Zestril] 10 mg PO DAILY #30 tab 08/26/19 Melatonin 3 mg PO QHS tab 08/26/19 Menthol/Lanolin/Calamine/Znox [Calmoseptine Ointment] 1 applic TOPICAL 0600,2200 tube 08/26/19 Mirtazapine [Remeron] 7.5 mg PO QHS #30 tab 08/26/19 Tamsulosin HCl [Flomax] 0.4 mg PO DAILY@1730 #30 cap 08/26/19 Primary Care Physician: Jhonatan Zapien MD [Primary Care Provider] - Please follow up with your Primary Care Physician in: 1 Week Test Results: Test results from this visit will be discussed in further detail at your follow- up appointment, if applicable. Please Follow Up With: Soham Gaspar DO When: As scheduled Proposed Discharge Date: 09/13/19
--- NOTE | 2019-09-13 14:17 | DS.PCM_ITS ---
<Fabiola Burnette - Last Filed: 09/13/19 14:29> Discharge Date and Diagnosis Date of Admission: 09/12/19 Date of Discharge: 09/13/19 - Primary Discharge Diagnosis Acute Problems: 1. Debility with recurrent falls-recent admission for left femur intertrocha nter fracture status post repair 08/11/2019. 2. Reported Altered mental status-no confusion noted during admission. 3. Possible Parkinson's? 4. History of seizures 5. Chronic alcohol abuse 6. Hypertension 7. Anxiety/Depression 8. GERD 9. BPH - Secondary Discharge Diagnosis Chronic Problems: Chronic Problems (Last Reviewed 08/10/19 @ 15:[address] Mario Gill, DO) Debility (Chronic) Anxiety (Chronic) Dizziness (Chronic) History of kidney stones (Chronic) IBS (irritable bowel syndrome) (Chronic) GERD (gastroesophageal reflux disease) (Chronic) Depression (Chronic) Anemia (Chronic) Hypertension (Chronic) Chronic obstructive pulmonary disease (COPD) (Chronic) Wernicke encephalopathy (Chronic) Alcohol abuse (Chronic) Seizure disorder (Chronic) Tobacco abuse (Chronic) Hospital Course and Treatment Imaging Results: Diagnostic Data Chest X-Ray 09/12/19 06:00 IMPRESSION: Chronic fibrotic changes of the lungs Electronically Signed: Herbert Mendiola MD at 16:30 EDT , Service support , Brain CT 09/12/19 15:21 IMPRESSION: Chronic involutional changes of the brain. Electronically Signed: Herbert Mendiola MD at 16:35 EDT , Service support , Operations: None Procedures: None Summary of Care Provided: The patient is a 73 year old M admitted 09/12/2019 due to recurrent falls. 1. Debility with recurrent falls-recent admission for left femur intertrochanter fracture status post repair 08/11/2019. PT/OT. Patient recently discharged from TCU 08/26/2019. Therapy evaluated patient and recommend further therapy. Patient alert and oriented and refused SNF. He has home health and home PT already set up. Patient wishes to return home and is in stable condition. Follow-up with primary care physician in 1 week. Follow-up with orthopedic medicine as scheduled. 2. Reported Altered mental status-patient alert and oriented during admission, no confusion during assessment or per nursing report. Urinalysis, tox screen, CBC/BMP unremarkable. Chest x-ray with chronic changes. Brain CT with chronic changes. Unclear etiology of prior reported confusion. 3. Possible Parkinson's? patient is on trihexyphenidyl which was recently started by psychiatric nurse practitioner, Salud Dunn. Unclear why patient was started on this. Continue outpatient follow-up. 4. History of seizures-patient denies recent seizure history. Reports his last seizure was several years ago. Continue home Lamictal regimen. 5. Chronic alcohol abuse-denies recent use. Alcohol level negative on admission. 6. Hypertension-stable, continue amlodipine, lisinopril regimen. 7. Anxiety/Depression-continue buspirone, fluoxetine, risperidone. 8. GERD-continue PPI. 9. BPH-continue Flomax regimen. General: Alert, Oriented x3, Cooperative HEENT: Atraumatic, PERRLA, EOMI, Normocephalic Oral: Dry Mucosa Neck: Supple, No JVD, Negative Carotid Bruits Lungs: Clear to auscultation, Normal air movement Cardiovascular: Regular rate, No murmurs Abdomen: Bowel Sounds Present, Soft, Non Tender Extremities: No clubbing, No cyanosis, No edema, Capillary Refill Less than 3 Seconds Skin: No rashes, No breakdown Musculoskeletal: No Tenderness to Palpation of Joints or Extremities Neurological: Cranial nerves II-XII grossly intact, Neuro grossly intact Psych/Mental Status: Normal Affect, Appropriate Patient seen and examined prior to discharge. Physical assessment as noted above. Patient is stable for discharge with follow up recommendations as noted above. This patient was seen by ROMEO Garduno under the supervision of Dr. Woodard. - Physical Exam Vitals/I&O's: Vital Signs Temp Pulse Resp BP Pulse Ox 98.1 F 62 14 133/77 H 94 09/13/19 09:41 09/13/19 09:41 09/13/19 09:41 09/13/19 09:41 09/13/19 09:41 Oxygen Delivery Method Room Air Weight: 132 lb 0.91 oz Body Mass Index (BMI) 20.7 Finger Stick Blood Glucose 152 Intake and Output for Last 24 Hours 09/11/19 09/12/19 09/13/19 23:59 23:59 23:59 Intake Total 5 / 5 100 / 100 Balance 5 100 / Laboratory Results 09/12/19 15:36: WBC 7.3, RBC 4.02 L, Hgb 12.2 L, Hct 38.8 L, MCV 96.5 H, MCH 30.3, MCHC 31.4 L, RDW Std Deviation 55.3 H, RDW Coeff of Dariela 15.6 H, Plt Count 404, MPV 9.2, Immature Gran % (Auto) 0.400, Neut % (Auto) 50.1, Lymph % (Auto) 32.2, [place] % (Auto) 9.8, Eos % (Auto) 6.7 H, Baso % (Auto) 0.8, Absolute Neuts (auto) 3.6, Absolute Lymphs (auto) 2.34, Nucleated RBC % 0 09/12/19 15:36: Sodium 138, Potassium 5.0, Chloride 104, Carbon Dioxide 30.0, Anion Gap 4 L, BUN 8, Creatinine 1.13, Estim Creat Clear Calc 46.36, Est GFR (MDRD) Af Amer 82, Est GFR (MDRD) Non-Af 68, BUN/Creatinine Ratio 7.1 L, Glucose 91, Calcium 10.5 H, Troponin I < 0.015 09/12/19 15:36: Ethyl Alcohol < 3.0 09/12/19 15:36: Vitamin D 25-Hydroxy 24.4 09/12/19 15:36: Magnesium 1.9 09/12/19 16:45: Urine Color Straw, Urine Clarity Clear, Urine pH 7.0, Ur Specific [place] 1.010, Urine Protein Negative, Urine Glucose (UA) Normal, Urine Ketones Negative, Urine Occult Blood Negative, Urine Nitrite Negative, Urine Bilirubin Negative, Urine Urobilinogen Normal, Ur Leukocyte Esterase Negative, Urine RBC 0 SEEN, Urine WBC 0 SEEN, Ur Squamous Epith Cells 0-5 SEEN, Urine Bacteria 0 SEEN, Urine Mucus 0 SEEN 09/12/19 16:45: Urine Opiates Screen NEGATIVE, Urine Methadone Screen NEGATIVE, Ur Barbiturates Screen NEGATIVE, Ur Phencyclidine Scrn NEGATIVE, Ur Amphetamines Screen NEGATIVE, U Methamphetamin-MDMA NEGATIVE, U Benzodiazepines Scrn NEGATIVE, Urine Cocaine Screen NEGATIVE, U Cannabinoids Screen NEGATIVE, Ur Drug Screen Comment 09/13/19 05:28: TSH 1.81 Current Medications Acetaminophen (Tylenol) 650 mg PO Q6H PRN PRN PRN Reason: Pain Score 1-10/Temp > 100.7 F Last Admin: 09/13/19 04:01 Dose: 650 mg Documented by: Amlodipine Besylate (Norvasc) 5 mg PO DAILY [facility] Last Admin: 09/13/19 09:44 Dose: 5 mg Documented by: Apixaban (Eliquis) 2.5 mg PO BID [facility] Last Admin: 09/13/19 09:44 Dose: 2.5 mg Documented by: Buspirone HCl (Buspar) 10 mg PO BID [facility] Last Admin: 09/13/19 09:44 Dose: 10 mg Documented by: Dextrose (D50w Syringe) 0 gm IV X1 PRN; Protocol PRN Reason: Hypoglycemia Fluoxetine HCl (Prozac) 20 mg PO DAILY [facility] Last Admin: 09/13/19 09:44 Dose: 20 mg Documented by: Glucagon () 1 mg IM .X1 PRN PRN Reason: Hypoglycemia Sodium Chloride () 250 mls @ 15 mls/hr IV .[id number] PRN PRN Reason: Saline Flush Sodium Chloride () 250 mls @ 15 mls/hr IV .[id number] PRN PRN Reason: Additional IVPB Infusion Lamotrigine (Lamictal) 200 mg PO DAILY [facility] Last Admin: 09/13/19 09:44 Dose: 200 mg Documented by: Lisinopril (Zestril) 10 mg PO DAILY [facility] Last Admin: 09/13/19 09:45 Dose: 10 mg Documented by: Mirtazapine (Remeron) 7.5 mg PO QHS [facility] Last Admin: 09/12/19 21:12 Dose: 7.5 mg Documented by: Ondansetron HCl (Zofran) 4 mg IV Q8H PRN PRN PRN Reason: NAUSEA/VOMITING Pantoprazole Sodium (Protonix) 40 mg PO DAILY [facility] Last Admin: 09/13/19 09:44 Dose: 40 mg Documented by: Polysaccharide Iron [facility] ([facility]rex 150) [facility] Last Admin: 09/13/19 09:44 Dose: 150 mg Documented by: Risperidone (Risperdal) 1 mg PO QHS [facility] Last Admin: 09/12/19 21:13 Dose: 1 mg Documented by: Sodium Chloride () 10 - 40 ml IV UD PRN PRN Reason: SALINE FLUSH Tamsulosin HCl (Flomax) 0.4 mg PO DAILY@1730 [facility] Trihexyphenidyl HCl (Trihexyphenidyl Hcl) 2 mg PO BID [facility] Last Admin: 09/13/19 09:45 Dose: 2 mg Documented by: Discharge Diet: No Restrictions Discharge Activity: Return to Normal Activity Call your doctor if you observe: Shortness of breath, Dizziness, Swelling in the ankles, Chest pain Home Medications: Medications to take at Discharge Amlodipine [Norvasc] 5 mg PO DAILY 08/10/19 Buspirone HCl 10 mg PO BID 08/10/19 Fluoxetine HCl [Prozac] 20 mg PO DAILY 08/10/19 Lamotrigine [Lamictal] 200 mg PO DAILY 08/10/19 Omeprazole 40 mg PO DAILY 08/10/19 Risperidone 1 mg PO QHS 08/10/19 Trihexyphenidyl HCl 2 mg PO BID 08/10/19 Acetaminophen [Tylenol] 1,000 mg PO Q8 tab 08/26/19 Apixaban [Eliquis] 2.5 mg PO BID #24 tab 08/26/19 Iron Polysaccharide Complex [Ferrex 150] 150 mg PO DAILYCM #30 cap 08/26/19 Lisinopril [Zestril] 10 mg PO DAILY #30 tab 08/26/19 Melatonin 3 mg PO QHS tab 08/26/19 Menthol/Lanolin/Calamine/Znox [Calmoseptine Ointment] 1 applic TOPICAL 0600,2200 tube 08/26/19 Mirtazapine [Remeron] 7.5 mg PO QHS #30 tab 08/26/19 Tamsulosin HCl [Flomax] 0.4 mg PO DAILY@1730 #30 cap 08/26/19 Primary Care Physician: Jhonatan Zapien MD [Primary Care Provider] - Please follow up with your Primary Care Physician in: 1 Week Please Follow Up With: Soham Gaspar DO When: As scheduled Disposition: Home with Home Health Minutes spent on discharge:: 35 Patient Condition:: Stable Medical Necessity - Tobacco Use Smoking Status: Current every day smoker Meaningful Use Info Meaningful Use Diagnoses (Choose all that apply): None applicable <Slime Woodard - Last Filed: 09/13/19 15:09> Discharge Date and Diagnosis - Secondary Discharge Diagnosis Chronic Problems: Chronic Problems (Last Reviewed 08/10/19 @ 15:[address] Mario Gill, DO) Debility (Chronic) Anxiety (Chronic) Dizziness (Chronic) History of kidney stones (Chronic) IBS (irritable bowel syndrome) (Chronic) GERD (gastroesophageal reflux disease) (Chronic) Depression (Chronic) Anemia (Chronic) Hypertension (Chronic) Chronic obstructive pulmonary disease (COPD) (Chronic) Wernicke encephalopathy (Chronic) Alcohol abuse (Chronic) Seizure disorder (Chronic) Tobacco abuse (Chronic) Hospital Course and Treatment Summary of Care Provided: Patient seen by Fabiola WALTERS under my supervision Patient was admitted via the ED on 09/12/2019 with a complaint of altered mental status. His girlfriend called the squad reportedly because she found him comatose. Patient was however alert and oriented in the ED, and had no complaints. He went to TCU for rehab after a left intertrochanteric fracture s/o repair and was discharged from TCU on 08/26/2019. Patient did not want to be admitted initially, as he didnt think he had any problem. His sister apparently called and said patient had been falling at home. He was admitted and managed for debility due to recurrent mechanical falls. Patient remained stable during admission and was reviewed by physical therapy. He did well with physical therapy and was deemed fit to go home with home physical therapy on 09/13/2019. Patient refused SNF placement. He was discharged home on 09/13/2019 and is follow-up with his primary care doctor within 1 to 2 weeks. Patient seen and examined prior to discharge. He had no complaints and felt well. Review of symptoms otherwise negative. Labs and vitals reviewed. Me dication reviewed and reconciled. o/e: Vital Signs Temp Pulse Resp BP Pulse Ox 98.1 F 62 14 133/77 H 94 09/13/19 09:41 09/13/19 09:41 09/13/19 09:41 09/13/19 09:41 09/13/19 09:41 General: Alert, Oriented x3, Cooperative HEENT: Atraumatic, PERRLA, EOMI, Normocephalic Oral: Dry Mucosa Neck: Supple, No JVD, Negative Carotid Bruits Lungs: Clear to auscultation, Normal air movement Cardiovascular: Regular rate, No murmurs Abdomen: Bowel Sounds Present, Soft, Non Tender Extremities: No clubbing, No cyanosis, No edema, Capillary Refill Less than 3 Se conds Skin: No rashes, No breakdown Musculoskeletal: No Tenderness to Palpation of Joints or Extremities Neurological: Cranial nerves II-XII grossly intact, Neuro grossly intact Psych/Mental Status: Normal Affect, Appropriate Plan is for discharge home today as above. Rest as per ROMEO Garduno's notes which I reviewed and endorsed. - Physical Exam Vitals/I&O's: Vital Signs Temp Pulse Resp BP Pulse Ox 98.1 F 62 14 133/77 H 94 09/13/19 09:41 09/13/19 09:41 09/13/19 09:41 09/13/19 09:41 09/13/19 09:41 Oxygen Delivery Method Room Air Weight: 132 lb 0.91 oz Body Mass Index (BMI) 20.7 Finger Stick Blood Glucose 152 Intake and Output for Last 24 Hours 09/11/19 09/12/19 09/13/19 23:59 23:59 23:59 Intake Total 675 / 675 100 / 100 Balance 675 / 675 100 / 100 Laboratory Results 09/12/19 15:36: WBC 7.3, RBC 4.02 L, Hgb 12.2 L, Hct 38.8 L, MCV 96.5 H, MCH 30.3, MCHC 31.4 L, RDW Std Deviation 55.3 H, RDW Coeff of Dariela 15.6 H, Plt Count 404, MPV 9.2, Immature Gran % (Auto) 0.400, Neut % (Auto) 50.1, Lymph % (Auto) 32.2, [place] % (Auto) 9.8, Eos % (Auto) 6.7 H, Baso % (Auto) 0.8, Absolute Neuts (auto) 3.6, Absolute Lymphs (auto) 2.34, Nucleated RBC % 0 09/12/19 15:36: Sodium 138, Potassium 5.0, Chloride 104, Carbon Dioxide 30.0, Anion Gap 4 L, BUN 8, Creatinine 1.13, Estim Creat Clear Calc 46.36, Est GFR (MDRD) Af Amer 82, Est GFR (MDRD) Non-Af 68, BUN/Creatinine Ratio 7.1 L, Glucose 91, Calcium 10.5 H, Troponin I < 0.015 09/12/19 15:36: Ethyl Alcohol < 3.0 09/12/19 15:36: Vitamin D 25-Hydroxy 24.4 09/12/19 15:36: Magnesium 1.9 09/12/19 16:45: Urine Color Straw, Urine Clarity Clear, Urine pH 7.0, Ur Specific [place] 1.010, Urine Protein Negative, Urine Glucose (UA) Normal, Urine Ketones Negative, Urine Occult Blood Negative, Urine Nitrite Negative, Urine Bilirubin Negative, Urine Urobilinogen Normal, Ur Leukocyte Esterase Negative, Urine RBC 0 SEEN, Urine WBC 0 SEEN, Ur Squamous Epith Cells 0-5 SEEN, Urine Bacteria 0 SEEN, Urine Mucus 0 SEEN 09/12/19 16:45: Urine Opiates Screen NEGATIVE, Urine Methadone Screen NEGATIVE, Ur Barbiturates Screen NEGATIVE, Ur Phencyclidine Scrn NEGATIVE, Ur Amphetamines Screen NEGATIVE, U Methamphetamin-MDMA NEGATIVE, U Benzodiazepines Scrn NEGATIVE, Urine Cocaine Screen NEGATIVE, U Cannabinoids Screen NEGATIVE, Ur Drug Screen Comment 09/13/19 05:28: TSH 1.81 Current Medications Acetaminophen (Tylenol) 650 mg PO Q6H PRN PRN PRN Reason: Pain Score 1-10/Temp > 100.7 F Last Admin: 09/13/19 04:01 Dose: 650 mg Documented by: Amlodipine Besylate (Norvasc) 5 mg PO DAILY [facility] Last Admin: 09/13/19 09:44 Dose: 5 mg Documented by: Apixaban (Eliquis) 2.5 mg PO BID [facility] Last Admin: 09/13/19 09:44 Dose: 2.5 mg Documented by: Buspirone HCl (Buspar) 10 mg PO BID [facility] Last Admin: 09/13/19 09:44 Dose: 10 mg Documented by: Dextrose (D50w Syringe) 0 gm IV X1 PRN; Protocol PRN Reason: Hypoglycemia Fluoxetine HCl (Prozac) 20 mg PO DAILY [facility] Last Admin: 09/13/19 09:44 Dose: 20 mg Documented by: Glucagon () 1 mg IM .X1 PRN PRN Reason: Hypoglycemia Sodium Chloride () 250 mls @ 15 mls/hr IV .[id number] PRN PRN Reason: Saline Flush Sodium Chloride () 250 mls @ 15 mls/hr IV .[id number] PRN PRN Reason: Additional IVPB Infusion Lamotrigine (Lamictal) 200 mg PO DAILY [facility] Last Admin: 09/13/19 09:44 Dose: 200 mg Documented by: Lisinopril (Zestril) 10 mg PO DAILY [facility] Last Admin: 09/13/19 09:45 Dose: 10 mg Documented by: Mirtazapine (Remeron) 7.5 mg PO QHS [facility] Last Admin: 09/12/19 21:12 Dose: 7.5 mg Documented by: Ondansetron HCl (Zofran) 4 mg IV Q8H PRN PRN PRN Reason: NAUSEA/VOMITING Pantoprazole Sodium (Protonix) 40 mg PO DAILY [facility] Last Admin: 09/13/19 09:44 Dose: 40 mg Documented by: Polysaccharide Iron Complex (Ferrex 150) [facility] Last Admin: 09/13/19 09:44 Dose: 150 mg Documented by: Risperidone (Risperdal) 1 mg PO QHS [facility] Last Admin: 09/12/19 21:13 Dose: 1 mg Documented by: Sodium Chloride () 10 - 40 ml IV UD PRN PRN Reason: SALINE FLUSH Tamsulosin HCl (Flomax) 0.4 mg PO DAILY@1730 [facility] Trihexyphenidyl HCl (Trihexyphenidyl Hcl) 2 mg PO BID [facility] Last Admin: 09/13/19 09:45 Dose: 2 mg Documented by: OBSV E&M: [id number] Observation care discharge
== END 2019-09-13 14:15 | disposition home health service (06) ==
LOC: ED 17:13 → PCU 17:44
PROVIDERS: Nurse Practitioner Family; Admitting Provider Student in an Organized Health Care Education/Training Program; Emergency Provider Emergency Medicine; PCP Internal Medicine; Visit Provider Student in an Organized Health Care Education/Training Program
DX: R41.82 Altered mental status, unspecified (principal); F41.9 Anxiety disorder, unspecified; K21.9 Gastro-esophageal reflux disease without esophagitis; K58.9 Irritable bowel syndrome, unspecified; F32.9 Major depressive disorder, single episode, unspecified; I10 Essential (primary) hypertension; J44.9 Chronic obstructive pulmonary disease, unspecified; D64.9 Anemia, unspecified; G40.909 Epilepsy, unspecified, not intractable, without status epilepticus; R29.6 Repeated falls; F10.10 Alcohol abuse, uncomplicated; N40.0 Benign prostatic hyperplasia without lower urinary tract symptoms; Z79.01 Long term (current) use of anticoagulants; Z79.899 Other long term (current) drug therapy; F17.200 Nicotine dependence, unspecified, uncomplicated; E55.9 Vitamin D deficiency, unspecified
CPT/HCPCS: 36415; 70450; 71045; 80048; 80307; 80320; 81001; 82306; 83735; 84443; 84484; 85025; 93005; 96360; 97162; 97166; 99218; 99285; 99406; J7030; A4216; G0378; G0480

== ENCOUNTER → 2019-09-26 10:09 | Outpatient (CLI) | payer MEDICARE, MEDICAID, SELFPAY ==
[2019-09-26 10:03] VITALS: BMI 20.7
--- NOTE | 2019-09-26 10:11 | RAD_ITS ---
HISTORY: POST OP ADDITIONAL HISTORY: None provided. TECHNIQUE: Left hip 2 views with AP pelvis Number of images including paperwork: 3 COMPARISON: AP pelvis 08/10/2019 and intraoperative images 08/11/2019 FINDINGS: BONES: Intertrochanteric left proximal femur fracture status post ORIF with hip screw and short intramedullary johann. Alignment appears near anatomic. Some callus formation is noted but fracture line is still visible. JOINTS: No subluxation. SOFT TISSUES: No distinct foreign body. Vascular calcifications. RAD/HIP, UNI W/ Pelvis 2-3 Views IMPRESSION: Healing intertrochanteric left proximal femur fracture status post ORIF. at 0805 Reported and signed by: Nina Donovan MD Electronically Signed: Nina Donovan MD at 8:05 EDT Tel , Service support ,
== END ==
PROVIDERS: PCP Internal Medicine; Referring Provider Orthopaedic Surgery; Visit Provider Orthopaedic Surgery
DX: Z47.89 Encounter for other orthopedic aftercare (principal); S72.002A Fracture of unspecified part of neck of left femur, initial encounter for closed fracture
CPT/HCPCS: 73502

== ENCOUNTER → 2019-10-11 | Outpatient (CLI) | payer MEDICARE, MEDICAID, SELFPAY ==
[2019-09-26 10:03] VITALS: BMI 20.7
--- NOTE | 2019-10-11 14:08 | BD_ITS ---
STUDY: DUAL ENERGY X-RAY ABSORPTIOMETRY / DXA REASON FOR EXAM: Male, 73 years old. PT UNABLE TO ANSWER ALL MED OR HISTORY QUESTIONS -- SMOKER -- DOES NO EXERCISE -- HX OF RIB FX, L FEMUR FX WITH RODDING, HX OF CLAVICLE FX -- TAKES LASIX AND HCTZ -- TAKES MULTIPLE ANTI-PSYCHOTIC MEDS -- PT IS ALCOHOLIC TECHNIQUE: Bone Mineral Density (BMD) measurements of lumbar spine and right hip were obtained. COMPARISON: None. FINDINGS: Lumbar Spine (L1-L4): g/cm2 (0.886) / T-score (-2.7) / Z-score (-2.1) Findings are suggestive of osteoporosis with a high fracture risk. Right Femur Total: g/cm2 (0.597) / T-score (-3.5) / Z-score (-2.7) Right Femoral Neck: g/cm2 (0.544) / T-score (-4.0) / Z-score (-2.7) BD/Dexa Bone Density Study IMPRESSION: The patient is considered osteoporotic as outlined below according to World Joss Organization (WHO) criteria with a high fracture risk. Reference Information: The T-score is the number of standard deviations above or below the standard which is normal for young adults at their peak bone mineral density. The World Health Organization (WHO) interprets the T-scores as follows: Above -1 Normal bone density Between -1 and -2.5 Osteopenia Equal to / or below -2.5 Osteoporosis As a practical clinical guideline, osteopenia may be graded as follows: Mild -1 through -1.5 Moderate -1.6 through -2.0 Severe -2.1 through -2.4 The Z-score is the number of standard deviations above or below age-matched controls. A Z-score of less than -1.5 would be considered abnormal. References: 1. NIH Osteoporosis and Related Bone Diseases http://www.osteo.org 2. International Society for Clinical Densitometry http://www.iscd.org 3. National Osteoporosis Foundation http://www.nof.org Electronically Signed: Tigre Borden, at 9:33 EDT , Service support ,
== END | disposition home or self-care (01) ==
PROVIDERS: PCP Internal Medicine; Referring Provider Internal Medicine; Visit Provider Internal Medicine
DX: M81.0 Age-related osteoporosis without current pathological fracture (principal); F10.10 Alcohol abuse, uncomplicated; T14.8XXA Other injury of unspecified body region, initial encounter; Z13.820 Encounter for screening for osteoporosis; Z79.899 Other long term (current) drug therapy
CPT/HCPCS: 77080

== ENCOUNTER 2019-11-01 15:37 | Outpatient (RCR) | payer MEDICARE, MEDICAID, SELFPAY ==
[2019-10-19 11:18] VITALS: BMI 20.7
--- NOTE | 2019-11-01 16:54 | HP.PTEVAL ---
Patient's Visit Information ANA RIVERA is a 73 year old M referred to Physical Therapy by Dr. Jhonatan Zapien MD with a diagnosis of 08/11/2019 left hip trochanteric femoral nailing. Date of Evaluation: 11/01/19 Physical Therapist: Tierney Thomas DPT - Visit Plan Frequency: 2x /Week Duration: 4 Weeks Plan: Focus on LE and core strength/stabilization- left hip trochanteric femoral nailing 08/11/2019- VERY IMPULSIVE1 - Subjective Patient reports that in August he fell at home and fractured his hip and pelvis. Has a hip replacement and released him- PT/OT/Home health aid but he did not open the door for PT/OT. Sometimes he is difficult to work with. Prior to the fall he had help from his neighbor and meals on wheels. Currently lives alone- has a few baby stairs to get into the apartment. No stairs once he is inside. Does not drive- plans to bring him to therapy- [facility] up at the [facility]. Uses the walker at home some but was never using an AD prior. He has fallen a few times after surgery- the neighbor has found him on the floor. He has good and bad days. No pain in the hip- Left Hip was broken. Sleep: not disturbed. Feels that he is weaker than prior to surgery. Currently has a home health aid 2x a week. PMHx/Meds: no change since saw . Normally wears tennis shoes or boots but he has no shoe strings so he is in his slippers today. - Objective Posture: FH, RS- significant kyphosis in thoracic spine. Gait: severly ataxic- impulsive- veers both sides- FWW- runs it into things- does not keep all 4 points on the floor- decreased step length and gets walking out in front of him. Stairs/Balance: not safe to attempt in footwear pt was wearing house slippers with no back that kept falling off- attempted tandem stance unable to perform even with UE A. ROM: WNL in all planes. Strength: Core: fair, Hip: 4-/5 throughout, Knee: 4+/5, ankle: 5/5. Pt was dishelved- he was unable to keep his pants up, shoes were house slippers with no backs that continued to fall up becoming a fall risk and he was impulsive. Spke to caser up about all of the above. Encouaged a gait belt and sent one home with caser up to assist with safety of transportation. - Goals Goal 1:: Patient will be I with HEP and progression Goal Time Frame: 4-6 Weeks Goal 2:: Patient will ambulate >300 feet with a normalized gait pattern with LRD Goal Time Frame: 4-6 Weeks Goal 3:: Patient will tandem stance for 3 sec on each side Goal Time Frame: 4-6 Weeks Goal 4:: Patient will asc/desc 8 stairs recip with 1 HR safely Goal Time Frame: 4-6 Weeks - Rehabilitation Potential Physical Therapy Diagnosis: Patient presents with hypomobility- he has decreased strength and muscular endurnace leading to abnormal gait, poor balance and decreased ability to safely perform ADL's. Rehabilitation Potential: Fair - Anticipated Interventions Patient/Client Instruction: Educate patient on: Benefits of Fitness Program Therapeutic Exercise to Include: Strength training, Endurance training, Balance training, Coordination, Agility training, Body mechanics, Postural training, Flexibilty training, Gait and locomotor training, Passive ROM, Active ROM, Dynamic Lumbar Stabilization For the Purpose of:: To improve muscle performance and motor function Functional Training to Include: Gait training Thank you for the opportunity to evaluate your patient. For Medicare and Medicare HMO plans, please review the plan of care and approve it. It will need to be FAXED BACK to us at [phone] for Medicare purposes. For Medicare only, by signing this I certify the plan of care. Please let me know if there are questions or concerns regarding this plan of care. Physician Signature: Date:
== END 2019-11-01 19:00 | disposition home or self-care (01) ==
LOC: PT 15:37
PROVIDERS: PCP Internal Medicine; Referring Provider Internal Medicine; Visit Provider Internal Medicine
DX: R53.81 Other malaise (principal)
CPT/HCPCS: 97162

== ENCOUNTER 2019-11-09 17:31 | Emergency (ER) | payer MEDICARE, MEDICAID, SELFPAY ==
[2019-10-19 11:18] VITALS: BMI 20.7
[2019-11-09 17:33] VITALS: BP 137/96; PULSE 72; RESP 18; TEMP 36.6; O2SAT 91; BMI 17.8
[2019-11-09 17:38] VITALS: BP 137/96; PULSE 72; RESP 18; TEMP 36.6; O2SAT 91
--- NOTE | 2019-11-09 17:46 | EKG12_ITS ---
Test Reason : WEAKNESS Blood Pressure : / mmHG Vent. Rate : 069 BPM Atrial Rate : 069 BPM P-R Int : 194 ms QRS Dur : 080 ms QT Int : 412 ms P-R-T Axes : 062 -15 031 degrees QTc Int : 441 ms Normal sinus rhythm Normal ECG Confirmed by JARROD AL ([id number]), tape editor KARINE KABA ([id number]) on 11/14/2019 12:07:10 PM Referred By: ANGE/DIVINE Confirmed By:JARROD AL
--- NOTE | 2019-11-09 18:01 | ED.VIS.GEN ---
History of Present Illness Chief Complaint: Weakness Informant: Patient Narrative: Patient presents with weakness. He states that the person that helps care for him at home found him on the floor. He states that he has fallen. He states at baseline he would not be able to get up without a walker. He states he laid on the ground for a couple of hours. He is unsure if he hit his head. I did ask him if anything hurts and he said only his lower back, however he does not want to stay in the ED and wants to leave immediately. I did ask him why he came to the ED and he said that since somebody called EMS he was having trouble getting up he was transported. Past Medical History - Allergies and Home Meds Allergies/Adverse Reactions: Allergies bupropion HCl [From Wellbutrin] Allergy (Verified 11/09/19 17:43) SHAKING quetiapine fumarate [From Seroquel] Allergy (Verified 11/09/19 17:43) Unknown trazodone Adverse Reaction (Verified 11/09/19 17:43) SHAKING Primary Care Physician: Jhonatan Zapien MD [Primary Care Provider] - Prior records reviewed: Yes Surgical History: tonsillectomy, - - Umbilical hernia repair, bowel resection secondary to small bowel obstruction, ORIF left clavicle fracture, ileocecal resection via CT scan evaluation, cephalo-medullary nail fixation left hip. Smoking Status: Current every day smoker - Family History Maternal Family History: Family History (Last Reviewed 10/19/19 @ 11:18 by Mariola Cross) Other Anemia Anxiety Breast cancer Cancer Depression Hypertension Osteoporosis Family History: Reports: Cancer, Hypertension Paternal Family History: Family History (Last Reviewed 10/19/19 @ 11:18 by Mariola Cross) Other Anemia Anxiety Breast cancer Cancer Depression Hypertension Osteoporosis Family History: Reports: Cancer, Hypertension Review of Systems ROS: Unable to Obtain - Patient only replied to my questioning to say he had back pain Musculoskeletal: Reports: Back pain Physical Exam Vital Signs/Narrative: Vital Signs Temp Pulse Resp BP Pulse Ox 11/09/19 17:38 97.9 F 72 18 137/96 H 91 11/09/19 17:33 97.9 F 72 18 137/96 H 91 Inital Vital Signs reviewed: Yes - Patient refused physical exam Diagnostic/Tx/Re-eval - Rhythm Strip Rhythm Strip: Sinus Rhythm Rate: 69 - EKG Initial EKG Interpretation: Sinus Rhythm, No Acute Injury Pattern - Medical Decision Making Patient presented initially stating that he fell and he was too weak to get up. He does state this is his baseline and he cannot get up without his walker. After being helped up he was transported to the ED for evaluation. During the interview he stated he did not want to be here anymore and he wants to go home. He was alert and oriented x3. 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 Given the patient does not want to be examined or stay in the ED he was discharged back to his home. Patient is given return precautions. ED Disposition - Plan for ED Patient: Disposition: Home or Assisted Living Diagnosis: Weakness, Fall Instructions: ED Fall Uncertain Cause, ED Weakness [facility] Referrals: Jhonatan Zapien MD [Primary Care Provider] -
[2019-11-09 20:12] VITALS: BP 160/87; PULSE 80; RESP 18; O2SAT 96
== END 2019-11-09 20:13 | disposition home or self-care (01) ==
PROVIDERS: Emergency Provider Student in an Organized Health Care Education/Training Program; PCP Internal Medicine
DX: R53.1 Weakness (principal); F17.200 Nicotine dependence, unspecified, uncomplicated; W18.30XA Fall on same level, unspecified, initial encounter; Y93.89 Activity, other specified; Y92.009 Unspecified place in unspecified non-institutional (private) residence as the place of occurrence of the external cause; Y99.8 Other external cause status
CPT/HCPCS: 99284

== ENCOUNTER 2019-11-10 18:02 | Inpatient (IN) | payer MEDICARE, MEDICAID, SELFPAY ==
[2019-11-09 17:33] VITALS: BMI 17.8
[2019-11-10] VITALS (7 sets, daily range): BP systolic 124–163; BP diastolic 60–98; PULSE 67–89; RESP 14–29; TEMP 36.8–37.2; O2SAT 92–100; BMI 19.2
[2019-11-10 18:30] LABS: Bedside Glucose 122 mg/dL (70-110)
--- NOTE | 2019-11-10 18:55 | ED.VIS.GEN ---
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 He states he resides with his girlfriend. He is unable to give me much medical history. He states that he fell and could not get up. He has an audible cough on examination. He appears dehydrated. Per EMS several meals had been delivered and it looks like they work on eating on his bed. He admits to pain in his left shoulder where he has bruising. Past Medical History - Allergies and Home Meds Allergies/Adverse Reactions: Allergies bupropion HCl [From Wellbutrin] Allergy (Verified 11/10/19 18:05) SHAKING quetiapine fumarate [From Seroquel] Allergy (Verified 11/10/19 18:05) Unknown trazodone Adverse Reaction (Verified 11/10/19 18:05) SHAKING Prior records reviewed: Yes Surgical History: tonsillectomy, - - Umbilical hernia repair, bowel resection secondary to small bowel obstruction, ORIF left clavicle fracture, ileocecal resection via CT scan evaluation, cephalo-medullary nail fixation left hip. Lives: Spouse/ Significant Other Smoking Status: Current every day smoker - Family History Maternal Family History: Family History (Last Reviewed 10/19/19 @ 11:18 by Mariola Cross) Other Anemia Anxiety Breast cancer Cancer Depression Hypertension Osteoporosis Family History: Reports: Cancer, Hypertension Paternal Family History: Family History (Last Reviewed 10/19/19 @ 11:18 by Mariola Cross) Other Anemia Anxiety Breast cancer Cancer Depression Hypertension Osteoporosis Family History: Reports: Cancer, Hypertension Review of Systems ROS: Unable to Obtain - Was only able to tell me that he fell and was unable to get up. He did only complaint of left shoulder pain and generalized weakness. Musculoskeletal: Reports: Extremity Pain - Shoulder pain Skin: Reports: - - Bruise over left shoulder approximately 3 cm Physical Exam Vital Signs/Narrative: Vital Signs Temp Pulse Resp BP Pulse Ox 11/10/19 18:41 67 15 124/75 H 100 11/10/19 18:11 92 11/10/19 18:05 98.9 F 70 14 135/77 H 92 11/10/19 18:04 71 14 135/77 H 92 Inital Vital Signs reviewed: Yes General: Cachectic, Unkempt Head: Normocephalic, Atraumatic Eyes: Perrl, EOMI ENT: Dry mucous membranes Cardiovascular: Regular rate, Regular rhythm Respiratory: - - Audible wet cough. Diminished bibasilar breath sounds greatest at the right lung base. Abdomen: Soft Extremities: Nontender Skin: Normal color, No rash Neurological: Alert, Disoriented Diagnostic/Tx/Re-eval Clinical Impression(s) from Imaging Studies Brain CT 11/10/19 18:57 IMPRESSION: Moderate atrophy and periventricular white matter ischemic changes with multiple old lacunar infarcts. No evidence for acute intracranial bleed Electronically Signed: Rickey Anderson MD at 20:27 EDT , Service support , Cervical Spine CT 11/10/19 19:00 IMPRESSION: No evidence for acute fracture or subluxation of cervical spine. . Mild spondylosis. Old compression fracture of T2 Electronically Signed: Rickey Anderson MD at 20:32 EDT , Service support , Chest X-Ray 11/10/19 20:28 IMPRESSION: Findings suspicious for atypical viral pneumonia possibly Covid nineteen. Clinical correlation is recommended Electronically Signed: Rickey Anderson MD at 21:13 EDT , Service support , Shoulder X-Ray 11/10/19 20:28 IMPRESSION: Degenerative changes. No evidence for acute fracture Electronically Signed: Rickey Anderson MD at 20:47 EDT , Service support , Laboratory Data 11/10/19 11/10/19 11/10/19 18:18 20:00 20:00 WBC 14.1 H RBC 4.79 Hgb 14.0 Hct 44.1 MCV 92.1 MCH 29.2 MCHC 31.7 L RDW Std Deviation 48.8 H RDW Coeff of Dariela 14.5 Plt Count 273 MPV 9.6 Immature Gran % (Auto) 0.400 Neut % (Auto) 83.3 H Lymph % (Auto) 8.5 L [place] % (Auto) 7.2 Eos % (Auto) 0.3 Baso % (Auto) 0.3 Absolute Neuts (auto) 11.7 H Absolute Lymphs (auto) 1.20 Nucleated RBC % 0 Sodium 139 Potassium 3.9 Chloride 108 H Carbon Dioxide 25.0 Anion Gap 6 BUN 9 Creatinine 1.36 H Estim Creat Clear Calc 34.76 Est GFR (MDRD) Af Amer 66 Est GFR (MDRD) Non-Af 55 L BUN/Creatinine Ratio 6.6 L Glucose 124 H Calcium 9.6 Total Bilirubin 0.80 AST 17 ALT 17 Alkaline Phosphatase 128 H Total Creatine Kinase Troponin I < 0.015 Total Protein 7.3 Albumin 3.6 Globulin 3.7 Albumin/Globulin Ratio 1.0 Urine Color Urine Clarity Urine pH Ur Specific Joaquin Urine Protein Urine Glucose (UA) Urine Ketones Urine Occult Blood Urine Nitrite Urine Bilirubin Urine Urobilinogen Ur Leukocyte Esterase Urine RBC Urine WBC Ur Squamous Epith Cells Urine Bacteria Urine Mucus POC Glucose 122 H 11/10/19 11/10/19 20:00 21:19 WBC RBC Hgb Hct MCV MCH MCHC RDW Std Deviation RDW Coeff of Dariela Plt Count MPV Immature Gran % (Auto) Neut % (Auto) Lymph % (Auto) [place] % (Auto) Eos % (Auto) Baso % (Auto) Absolute Neuts (auto) Absolute Lymphs (auto) Nucleated RBC % Sodium Potassium Chloride Carbon Dioxide Anion Gap BUN Creatinine Estim Creat Clear Calc Est GFR (MDRD) Af Amer Est GFR (MDRD) Non-Af BUN/Creatinine Ratio Glucose Calcium Total Bilirubin AST ALT Alkaline Phosphatase Total Creatine Kinase 67 Troponin I Total Protein Albumin Globulin Albumin/Globulin Ratio Urine Color Yellow Urine Clarity Clear Urine pH 6.5 Ur Specific Joaquin 1.015 Urine Protein 15 H Urine Glucose (UA) Normal Urine Ketones 5 H Urine Occult Blood Negative Urine Nitrite Negative Urine Bilirubin Negative Urine Urobilinogen Normal Ur Leukocyte Esterase Negative Urine RBC 0 SEEN Urine WBC 0-5 SEEN Ur Squamous Epith Cells 0-5 SEEN Urine Bacteria 0 SEEN Urine Mucus 0 SEEN POC Glucose - Rhythm Strip Rhythm Strip: Sinus Rhythm Rate: 72 - EKG Initial EKG Interpretation: Sinus Rhythm, No Acute Injury Pattern - Medical Decision Making Patient was seen and evaluated on arrival. He seems dehydrated. He had a moist wet cough. Initially his respiratory rate and vital signs were normal although he did have increasing respiratory rate while he was in the ED. He was afebrile. He has diminished breath sounds on exam worse on the right. EKG was sinus rhythm without signs of ischemia. Chest x-ray has concern for COVID pneumonia. COVID swab was ordered. Lab work showed slight leukocytosis. He is not hypotensive but was given some IV fluids. Urinalysis is negative. Social work was able to talk to his caregiver at home i that he was too weak to be at home and she could not care for him. Given the patient's weakness, health factors, pneumonia consistent with COVID and possibly aspiration pneumonia patient will be admitted to the hospital. He was given Unasyn and azithromycin per the hospitalist. He was causey cultured. Stable on transfer to the medical floor Impression 1. Pneumonia 2. Possible exposure to COVID?19 3. Generalized weakness 4. Altered mental status 5. Fall 6. Closed head injury 7. Leukocytosis ED Disposition - Plan for ED Patient: Disposition: Acute Care Hospital [facility]
--- NOTE | 2019-11-10 18:57 | CT_ITS ---
STUDY: CT BRAIN WITHOUT CONTRAST REASON FOR EXAM: Male, 73 years old. FELL YESTERDAY -- HX:COPD,HTN,WERNICKE ENCEPHALOPATHY,SUBSTANCE -- ABUSE RADIATION DOSAGE (If Supplied By Facility): CTDIvol = ( 44.99 ) mGy, DLP = ( 779.24 ) mGycm TECHNIQUE: Transaxial CT imaging of the brain was performed without administration of intravenous contrast material. Individualized dose optimization techniques were used for this CT. COMPARISON: 09-12-19 FINDINGS: Normal soft tissue structures. Normal calvarium. Calcification of cavernous carotids. Moderate atrophy and periventricular white matter ischemic changes. There are old bilateral lacunar infarcts in the basal ganglia and right thalamus. Normal brainstem. Normal cerebellum. There is no intracranial hemorrhage. There are no findings of an acute ischemic infarction. Normal visualized paranasal sinuses. CT/Brain/Head without Contrast IMPRESSION: Moderate atrophy and periventricular white matter ischemic changes with multiple old lacunar infarcts. No evidence for acute intracranial bleed Electronically Signed: Rickey Anderson MD at 20:27 EDT , Service support ,
--- NOTE | 2019-11-10 18:58 | EKG12_ITS ---
Test Reason : CP Blood Pressure : / mmHG Vent. Rate : 072 BPM Atrial Rate : 072 BPM P-R Int : 176 ms QRS Dur : 080 ms QT Int : 396 ms P-R-T Axes : 030 034 042 degrees QTc Int : 433 ms Normal sinus rhythm Normal ECG Confirmed by JARROD AL [id number]), editorial writer KARINE KABA ([id number]) on 11/14/2019 11:46:09 AM Referred By: Confirmed By:JARROD AL
--- NOTE | 2019-11-10 19:00 | CT_ITS ---
STUDY: CT CERVICAL SPINE WITHOUT CONTRAST REASON FOR EXAM: Male, 73 years old. FELL YESTERDAY -- HX:COPD,HTN,WERNICKE ENCEPHALOPATHY,SUBSTANCE -- ABUSE RADIATION DOSAGE (If Supplied By Facility): CTDIvol = ( 17.49 ) mGy, DLP = ( 357.07 ) mGycm TECHNIQUE: High resolution transaxial imaging was performed without contrast material. Sagittal and coronal images were reconstructed. Individualized dose optimization techniques were used for this CT. COMPARISON: 08-10-19 FINDINGS: Normal craniovertebral junction. Normal anterior atlantoaxial articulation. Normal odontoid process. Exaggerated cervical lordosis. There is levoscoliosis or torticollis secondary to muscle spasm no evidence for acute fracture or subluxation. There is narrowing of C3-4 and C4-5 disc spaces with minor endplate spurring. There is an old compression fracture of T2. CT/Spine Cervical without Contras IMPRESSION: No evidence for acute fracture or subluxation of cervical spine. . Mild spondylosis. Old compression fracture of T2 Electronically Signed: Rickey Anderson MD at 20:32 EDT , Service support ,
[2019-11-10 20:07] LABS: Absolute Neutrophil Count 11.7 X10^3/uL (2.0-7.7); Basophil# 0.04 X10^3/uL; Basophil% 0.3 % (0-1); Eosinophil# 0.04 X10^3/uL; Eosinophils% 0.3 % (0-5); Hematocrit 44.1 % (40-54); Lymphocyte % 8.5 % (19-41); Mean Corp Hgb Conc 31.7 g/dL (32-36); Mean Corpuscular Hgb 29.2 pg (27.0-32.0); Mean Corpuscular Volume 92.1 fL (80-94); Mean Platelet Vol. 9.6 fl (6.2-12.0); Monocyte# 1.02 X10^3/uL; Monocyte% 7.2 % (0-10); NRBC Flagged by Analyzer 0 % (0-5); Neutrophil # 11.73 X10^3/uL (2.7-7.7); Neutrophil % 83.3 % (47-70); Platelet Count 273 K/mm3 (150-450); RBC Distribution Width CV 14.5 % (11.6-14.6); RBC Distribution Width SD 48.8 fl (35.1-43.9); Red Blood Count 4.79 M/mm3 (4.6-6.2); White Blood Count 14.1 K/mm3 (4.4-11.0)
[2019-11-10 20:27] LABS: AST(SGOT) 17 U/L (15-37); Alanine Aminotransfer ALT/SGPT 17 U/L (16-61); Albumin, Serum 3.6 g/dL (3.2-5.0); Alkaline Phosphatase 128 U/L (45-117); Anion Gap 6 (5-15); BUN 9 mg/dL (7-18); BUN/Creat Ratio 6.6 RATIO (10-20); Calcium,Total 9.6 mg/dL (8.5-10.1); Chloride 108 mmol/L (98-107); Creatinine, Serum 1.36 mg/dL (0.70-1.30); EST Glomerular Filtration Rate 55 mL/min (>60); Est Glom Filt Rate - Afr Amer 66 mL/min (>60); Estimated Creatinine Clearance 34.76 ml/min; Globulin 3.7 g/dL (2.2-4.2); Glucose 124 mg/dL (74-106); Potassium 3.9 mmol/L (3.5-5.1); Protein, Total 7.3 g/dL (6.4-8.2); Sodium Level 139 mmol/L (136-145)
--- NOTE | 2019-11-10 20:28 | RAD_ITS ---
STUDY: X-RAY - LEFT SHOULDER REASON FOR EXAM: Male, 73 years old. Left shoulder pain from fall yesterday. TECHNIQUE: Two view(s) of the shoulder. COMPARISON: None. FINDINGS: Narrowed glenohumeral articulation. Normal acromioclavicular joint. Normal acromion. Normal humeral head and visualized proximal humerus. Postsurgical changes status post open reduction and internal fixation of left clavicular fracture The soft tissue structures are unremarkable. Normal visualized pulmonary apex. RAD/Shoulder min 2 Views IMPRESSION: Degenerative changes. No evidence for acute fracture Electronically Signed: Rickey Anderson MD at 20:47 EDT , Service support ,
--- NOTE | 2019-11-10 20:28 | RAD_ITS ---
STUDY: X-RAY CHEST REASON FOR EXAM: Male, 73 years old. fall yesterday. cough. TECHNIQUE: AP portable COMPARISON: 09-12-19 FINDINGS: There is multifocal interstitial thickening with diffusely increased density in the right lower lobe and more severe in left upper and lower lobes possibly representing atypical viral pneumonia.. There is no demonstrated pleural abnormality. Heart is mildly enlarged.. Normal mediastinum and gisselle. Normal visualized pulmonary arteries. Tortuous mildly calcified aortic arch and descending thoracic aorta. Normal visualized thoracic spine. Normal visualized ribs,,. There are degenerative changes of the shoulders. Postsurgical changes of left clavicle There is no demonstrated abnormality of the visualized soft tissue structures of the upper abdomen. The aforementioned findings in the lungs are new when compared with previous study. RAD/Chest 1 View (Portable) IMPRESSION: Findings suspicious for atypical viral pneumonia possibly Covid nineteen. Clinical correlation is recommended Electronically Signed: Rickey Anderson MD at 21:13 EDT , Service support ,
--- NOTE | 2019-11-10 21:00 | CM.ED ---
SOCIAL WORK Informant: Nurse, Eric Reason for Consult: Discharge planning Attempted to complete assessment with patient. Patient with garbled speech, unable to understand responses to questions. Work up being completed at this time. Reviewed chart and attempted to contact friend, Ashlee listed under Next of Kin. No answer, left message with this worker's call back information. Plan: SHIRA Zamora, DATA COLLECTOR, CLUB CAR ATTENDANT
[2019-11-10 21:25] LABS: Bacteria 0 SEEN /hpf (None Seen); Mucous, Urine 0 SEEN /hpf (<or=2+); Red Blood Cells-Urine 0 SEEN /hpf (0-5)
[2019-11-10 21:37] LABS: Color, Urine Yellow (Yellow); Glucose, Dipstick Normal (Normal); Ketone-Dipstick 5 mg/dl (Negative); Leukocyte Esterase-Dipstick Negative /ul (Negative); Nitrite-Dipstick Negative (Negative); Occult Blood-Urine Negative /ul (Negative); Protein-Dipstick 15 mg/dl (Negative); Specific Gravity, Urine 1.015 (1.002-1.030); Urine Bilirubin Dipstick Negative (Negative); Urine Clarity Clear (Clear); Urine Urobilinogen Normal (Normal); Urine pH 6.5 (5.0 - 8.0)
--- NOTE | 2019-11-10 21:40 | CM.ED ---
SOCIAL WORK Received call back from patient's friend/caregiver, Ashlee Brooke who resides in apartment above patient. Per Ashlee, patient lives in apartment alone. Ashlee reports patient was unable to walk and was not eating. Ashlee report does not feel patient is safe to continue living in the apartment alone. Ashlee states patient has home health services through [facility] and has a spring encaser through [facility]. Ashlee reports patient does have a sister, Nataliia who lives locally, but does not have a relationship with patient. [facility] has been main contact for patient and assists patient as needed with medications, appointments, and care. Discussed with Dr. Fairbanks. Patient to be admitted. Plan: Admit. SW to follow up for discharge planning needs. Allyssa Zamora, CAFETERIA COUNTER ATTENDANT, UPLANDS DIVISION DIRECTOR
[2019-11-10 21:46] LABS: Squamous Epithelial Cells - UA 0-5 SEEN /hpf (0-5); White Blood Cells 0-5 SEEN /hpf (0-5)
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
[2019-11-10 22:37] LABS: CPK Total, Creatine Kinase 67 U/L (39-308)
--- NOTE | 2019-11-10 23:47 | ED.RN ---
.intial iv site infiltrated after blood culture obtained. secondary line was placed and antibiotics were started. dr was made aware and informed about inability to obtained lactic acid. gurdeep painting rn
[2019-11-11] VITALS (24 sets, daily range): BP systolic 90–180; BP diastolic 64–101; PULSE 57–87; RESP 19–27; TEMP 36.6–37.1; O2SAT 92–100; BMI 16.2; BMI 16.3
[2019-11-11] MEDS: dexAMETHasone 10 MG/ML Vial 6 MG IV (00:01)
--- NOTE | 2019-11-11 00:07 | ED.RN ---
[facility] provider [phone]
[2019-11-11 01:16] LABS: Bedside Glucose 185 mg/dL (70-110)
[2019-11-11] MEDS: 0.9% Normal Saline 1,000 ML 75 ML IV ×2 (01:26→16:41)
--- NOTE | 2019-11-11 01:28 | NURSING ---
Pt unable to answer admission questions at this time.
[2019-11-11 02:25] LABS: Fibrinogen 373 mg/dl (203-444)
[2019-11-11 02:59] LABS: Vitamin B12 425 pg/mL (211-911); Vitamin D,25 Hydroxy 23.1 ng/mL
[2019-11-11 03:00] LABS: Ferritin 55 ng/mL (26-388); LDH 313 U/L (87-241); Triglycerides 113 mg/dL
[2019-11-11 03:03] LABS: Procalcitonin < 0.04 ng/mL (0.00-0.09)
[2019-11-11 03:38] LABS: Lactic Acid 1.1 mmol/L (0.4-1.9)
[2019-11-11] MEDS: Labetalol 20 MG/4 ML Vial 10 MG IV ×2 (06:29→21:15)
[2019-11-11 06:33] LABS: Absolute Lymphocyte Count 0.75 X10^3/uL (0.83-4.51); Absolute Neutrophil Count 11.4 X10^3/uL (2.0-7.7); Basophil# 0.01 X10^3/uL; Basophil% 0.1 % (0-1); Hematocrit 40.6 % (40-54); Hemoglobin 13.2 g/dL (13.0-16.5); Lymphocyte # 0.75 X10^3/ul (4.0); Mean Corp Hgb Conc 32.5 g/dL (32-36); Mean Corpuscular Volume 89.2 fL (80-94); Mean Platelet Vol. 9.4 fl (6.2-12.0); Monocyte# 0.28 X10^3/uL; Monocyte% 2.2 % (0-10); NRBC Flagged by Analyzer 0 % (0-5); Neutrophil # 11.41 X10^3/uL (2.7-7.7); Neutrophil % 91.4 % (47-70); Platelet Count 253 K/mm3 (150-450); RBC Distribution Width CV 14.6 % (11.6-14.6); RBC Distribution Width SD 47.4 fl (35.1-43.9); Red Blood Count 4.55 M/mm3 (4.6-6.2); White Blood Count 12.5 K/mm3 (4.4-11.0)
[2019-11-11 06:49] LABS: ALB/GLOB Ratio 0.9 RATIO (0.9-2.4); AST(SGOT) 7 U/L (15-37); Alanine Aminotransfer ALT/SGPT 15 U/L (16-61); Albumin, Serum 3.2 g/dL (3.2-5.0); Alkaline Phosphatase 122 U/L (45-117); Anion Gap 6 (5-15); BUN 9 mg/dL (7-18); BUN/Creat Ratio 8.1 RATIO (10-20); Chloride 108 mmol/L (98-107); Creatinine, Serum 1.11 mg/dL (0.70-1.30); EST Glomerular Filtration Rate 69 mL/min (>60); Est Glom Filt Rate - Afr Amer 83 mL/min (>60); Globulin 3.7 g/dL (2.2-4.2); Glucose 139 mg/dL (74-106); Potassium 3.8 mmol/L (3.5-5.1); Protein, Total 6.9 g/dL (6.4-8.2); Sodium Level 140 mmol/L (136-145)
[2019-11-11 09:23] LABS: D-Dimer Quantitative (DVT/PE) 0.96 FEU/ug/m (0.27-0.49)
--- NOTE | 2019-11-11 09:31 | CASEMGMT ---
RN CM assessment Chart reviewed for RN CM assessment. SW saw patient in ER and will follow for social concerns on discharge. Participated in ICU interdisciplinary rounds: COVID testing negative, however patient remains in isolation. 2L NC, ID consult. PCP: Dr. Zapien Insurance: [facility] Community Plan Pharmacy: [facility] Pharm[facility] benefit: yes Living arrangements: see APOOR[facility] note. DME: undetermined HHC: [facility] in past DC PLAN: anticipate home on discharge. Will monitor for PT/OT recommendations and oxygen needs. Lanny HEMPHILL RN ACM
--- NOTE | 2019-11-11 10:04 | CON.PCM_ITS ---
Problem List (1) Failure to thrive in adult Status: Acute (2) Protein-calorie malnutrition, severe Status: Acute (3) IBS (irritable bowel syndrome) Status: Chronic Qualifiers: Irritable bowel syndrome type: unspecified Qualified Code(s): K58.9 - Irritable bowel syndrome without diarrhea (4) GERD (gastroesophageal reflux disease) Status: Chronic (5) Depression Status: Chronic (6) Anemia Status: Chronic (7) Chronic obstructive pulmonary disease (COPD) Status: Chronic Qualifiers: (8) Wernicke encephalopathy Status: Chronic (9) Alcohol abuse Status: Chronic (10) Seizure disorder Status: Chronic (11) Tobacco abuse Status: Chronic Reason for Consult Date of Consultation: 11/11/19 Reason for Consultation: Concern for COVID-19 History of Present Illness: The patient is a 73 year old M, with past medical history listed below, who presented [facility] on 11/10/2019 secondary to a fall with an inability to wake up. Patient reportedly lives with his girlfriend and it was unclear on his medical history. EMS was called to evaluate and reportedly had noted several meals (fast food) with wrappers in his bed. Patient reportedly had complained of pain in his left shoulder where there was a noticeable bruise. Only history provided was that he had fallen and was unable to get up. Patient had reported generalized weakness. In the ER, patient was noted to appear dehydrated with a moist wet cough. Patient reportedly had diminished breath sounds on the right and sinus rhythm on telemetry. Chest x-ray showed concern for possible pneumonia and a COVID swab was obtained, but came back negative. Lab work had shown a leukocytosis of 14,000 and creatinine was slightly elevated at 1.36. Patient was not hypotens marquita, but was given fluids secondary to his perceived dehydration. Reportedly, patient's caregiver had stated that she was unable to care for him secondary to his weakness. Patient was then admitted on Unasyn, azithromycin with COVID-19 precautions. Patient is not able to provide any additional history at this time. Unable to reach the caregiver for questioning. Patient does have a bruise on his left shoulder, but tends to just mumble when asked questions. Patient will open his eyes to voice and track appropriately. Patient does not have any respiratory distress, but occasional coughing has been noted. Past Medical History Past Medical History (Chronic Problems): Chronic Problems (Last Reviewed 11/11/19 @ 01:[address] Soham Puentes MD) Debility (Chronic) Anxiety (Chronic) Dizziness (Chronic) History of kidney stones (Chronic) IBS (irritable bowel syndrome) (Chronic) GERD (gastroesophageal reflux disease) (Chronic) Depression (Chronic) Anemia (Chronic) Hypertension (Chronic) Chronic obstructive pulmonary disease (COPD) (Chronic) Wernicke encephalopathy (Chronic) Alcohol abuse (Chronic) Seizure disorder (Chronic) Tobacco abuse (Chronic) Medical History: Medical History (Last Reviewed 11/11/19 @ 01:[address] Soham Puentes MD) History of kidney stones (Chronic) Z87.442 IBS (irritable bowel syndrome) (Chronic) K58.9 GERD (gastroesophageal reflux disease) (Chronic) K21.9 Depression (Chronic) F32.9 Anemia (Chronic) D64.9 Hypertension (Chronic) I10 Anxiety F41.9 History of alcohol abuse F10.11 History of fracture of clavicle Z87.81 Vitamin D deficiency E55.9 Allergies bupropion HCl [From Wellbutrin] Allergy (Verified 11/10/19 18:05) SHAKING quetiapine fumarate [From Seroquel] Allergy (Verified 11/10/19 18:05) Unknown trazodone Adverse Reaction (Verified 11/10/19 18:05) SHAKING Home Medications: Ambulatory Orders Medication Instructions Recorded Buspirone HCl 10 mg PO BID 08/10/19 Lamotrigine [Lamictal] 200 mg PO DAILY 08/10/19 Omeprazole 40 mg PO DAILY 08/10/19 Risperidone 1 mg PO QHS 08/10/19 Trihexyphenidyl HCl 2 mg PO BID 08/10/19 fluoxetine 40 mg capsule 40 mg PO DAILY #90 cap 09/21/19 lisinopril 10 mg tablet 10 mg PO DAILY #30 tab 10/12/19 amlodipine 5 mg tablet 2.5 mg PO DAILY #30 tab 10/19/19 Acetaminophen [Tylenol] 1,000 mg PO Q8 PRN 11/11/19 Denosumab [Prolia] 60 mg SUBCUT [id number] 11/11/19 Melatonin 3 mg PO QHS 11/11/19 Mirtazapine 7.5 mg PO QHS 11/11/19 Multivitamin 1 ea PO 11/11/19 Tamsulosin HCl 0.4 mg PO DAILY@1730 11/11/19 Surgical History: Surgical History (Last Reviewed 11/11/19 @ 01:[address] Soham Puentes MD) History of hip surgery Z98.890 History of intestinal surgery Z98.890 due to blockage History of tonsillectomy Z90.89 Surgical History: tonsillectomy, - - Umbilical hernia repair, bowel resection secondary to small bowel obstruction, ORIF left clavicle fracture, ileocecal resection via CT scan evaluation, cephalo-medullary nail fixation left hip. Psychiatric History: Anxiety, Depression Lives: Spouse/ Significant Other Smoking Status: Current every day smoker Tobacco Use: Cigarettes - *Family History Maternal Family History: Family History (Last Reviewed 11/11/19 @ 01:[address] Soham Puentes MD) Other Anemia Anxiety Breast cancer Cancer Depression Hypertension Osteoporosis History Items: Cancer, Hypertension Paternal Family History: Family History (Last Reviewed 11/11/19 @ 01:[address] Soham Puentes MD) Other Anemia Anxiety Breast cancer Cancer Depression Hypertension Osteoporosis History Items: Cancer, Hypertension Patient Problems: Active and Suspected Problems (Last Reviewed 11/11/19 @ 01:[address] Soham Puentes MD) Pneumonia (Acute) Sepsis (Acute) Fall (Acute) Failure to thrive in adult (Acute) Protein-calorie malnutrition, severe (Acute) Objective: Chest x-ray was personally reviewed and shows a possible right lower lobe infiltrate. Patient does have an echocardiogram from 2018 showing an EF of 65% with stage I diastolic dysfunction and an elevated pulmonary artery pressure of 38 mmHg. Patient did not have any atrial enlargement and valves were within normal limits. No pulmonary function test is available for review. - Physical Exam Vitals/I&O's: Vital Signs Temp Pulse Resp BP Pulse Ox 36.6 C 63 24 H 167/91 H 96 11/11/19 05:07 11/11/19 08:07 11/11/19 05:07 11/11/19 06:29 11/11/19 07:30 Oxygen Flow Rate (L/min) 2.5 Oxygen Delivery Method Nasal Cannula Weight: 50.1 kg Body Mass Index (BMI) 16.2 Finger Stick Blood Glucose 122 Intake and Output for Last 24 Hours 11/09/19 11/10/19 11/11/19 23:59 23:59 23:59 Intake Total 502.5 / 502.5 596.50 / 596.50 Balance 502.5 / 502.5 596.50 / 596.50 General: No apparent distress, - - Cachectic and frail appearance HEENT: Atraumatic, PERRLA, EOMI, Normocephalic, - - Some temporal wasting. Scleral injection without icterus Oral: Moist Mucosa, No Gingival or Mucosal Lesions/ Ulcerations Neck: Supple, No JVD, No Nodes, Trachea Midline Lungs: No rhonchi, No wheeze, No rales, Diminished, - - Symmetric expansion. Fair effort. Cardiovascular: Regular rate, Regular Rhythm, Normal S1, Normal S2, No murmurs, No rub noted, No Gallop Abdomen: Bowel Sounds Present, Soft, Non Tender, Non-Distended Extremities: No cyanosis, No edema, Clubbing Skin: - - Dermal atrophy noted. Ecchymosis on the anterior left deltoid noted. Musculoskeletal: Cachexia, Muscle Wasting Lymphatic: No Cervical, Supraclavicular, or Inguinal Adenopathy Neurological: - - Spontaneous movement of all extremities, but it appears to be weak. Sensation is intact. Psych/Mental Status: Flat Affect Microbiology Past 72 Hours 11/10/19 23:55 Mucosa - Nasopharyngeal Respiratory Panel (PCR) - Final 11/10/19 21:19 Urine, Random Streptococcus pneumoniae Antigen (M - Final 11/10/19 21:19 Interface Orders Legionella Antigen - Final Laboratory Results 11/10/19 18:18: POC Glucose 122 H 11/10/19 20:00: WBC 14.1 H, RBC 4.79, Hgb 14.0, Hct 44.1, MCV 92.1, MCH 29.2, MCHC 31.7 L, RDW Std Deviation 48.8 H, RDW Coeff of Dariela 14.5, Plt Count 273, MPV 9.6, Immature Gran % (Auto) 0.400, Neut % (Auto) 83.3 H, Lymph % (Auto) 8.5 L, [place] % (Auto) 7.2, Eos % (Auto) 0.3, Baso % (Auto) 0.3, Absolute Neuts (auto) 11.7 H, Absolute Lymphs (auto) 1.20, Nucleated RBC % 0 11/10/19 20:00: Sodium 139, Potassium 3.9, Chloride 108 H, Carbon Dioxide 25.0, Anion Gap 6, BUN 9, Creatinine 1.36 H, Estim Creat Clear Calc 34.76, Est GFR (MDRD) Af Amer 66, Est GFR (MDRD) Non-Af 55 L, BUN/Creatinine Ratio 6.6 L, Glucose 124 H, Calcium 9.6, Total Bilirubin 0.80, AST 17, ALT 17, Alkaline Phosphatase 128 H, Troponin I < 0.015, Total Protein 7.3, Albumin 3.6, Globulin 3.7, Albumin/Globulin Ratio 1.0 11/10/19 20:00: Total Creatine Kinase 67 11/10/19 20:00: Ferritin 55, Lactate Dehydrogenase 313 H, Triglycerides 113 11/10/19 21:19: Urine Color Yellow, Urine Clarity Clear, Urine pH 6.5, Ur Specific [place] 1.015, Urine Protein 15 H, Urine Glucose (UA) Normal, Urine Ketones 5 H, Urine Occult Blood Negative, Urine Nitrite Negative, Urine Bilirubin Negative, Urine Urobilinogen Normal, Ur Leukocyte Esterase Negative, Urine RBC 0 SEEN, Urine WBC 0-5 SEEN, Ur Squamous Epith Cells 0-5 SEEN, Urine Bacteria 0 SEEN, Urine Mucus 0 SEEN 11/10/19 23:55: COVID-19 (GÉNESIS) Not Detected 11/11/19 01:00: POC Glucose 185 H 11/11/19 01:20: Lactic Acid Cancelled 11/11/19 01:20: Ethyl Alcohol 5.0 11/11/19 01:20: Fibrinogen 373 11/11/19 01:20: Procalcitonin < 0.04 11/11/19 01:20: Vitamin B12 425, Vitamin D 25-Hydroxy 23.1 11/11/19 03:00: Lactic Acid 1.1 11/11/19 06:15: WBC 12.5 H, RBC 4.55 L, Hgb 13.2, Hct 40.6, MCV 89.2, MCH 29.0, MCHC 32.5, RDW Std Deviation 47.4 H, RDW Coeff of Dariela 14.6, Plt Count 253, MPV 9.4, Immature Gran % (Auto) 0.300, Neut % (Auto) 91.4 H, Lymph % (Auto) 6.0 L, [place] % (Auto) 2.2, Eos % (Auto) 0.0, Baso % (Auto) 0.1, Absolute Neuts (auto) 11.4 H, Absolute Lymphs (auto) 0.75 L, Nucleated RBC % 0 11/11/19 06:15: Sodium 140, Potassium 3.8, Chloride 108 H, Carbon Dioxide 26.0, Anion Gap 6, BUN 9, Creatinine 1.11, Estim Creat Clear Calc 42.00, Est GFR (MDRD) Af Amer 83, Est GFR (MDRD) Non-Af 69, BUN/Creatinine Ratio 8.1 L, Glucose 139 H, Calcium 9.0, Total Bilirubin 0.70, AST 7 L, ALT 15 L, Alkaline Phosphatase 122 H, Total Protein 6.9, Albumin 3.2, Globulin 3.7, Albumin/Globulin Ratio 0.9 11/11/19 08:42: D-Dimer Quant (PE/DVT) 0.96 H* Current Medications Acetaminophen (Tylenol) 650 mg PO Q6H PRN PRN PRN Reason: Pain Score 1-10/Temp > 100.7 F Albuterol Sulfate (Albuterol Sulfate Hfa) 2 puff IH Q2H PRN PRN PRN Reason: Shortness of Breath/Wheezing Benzonatate (Tessalon Perle) 100 mg PO TID PRN PRN PRN Reason: COUGH Dexamethasone Sodium Phosphate (Decadron) 6 mg IV Q24@2200 [facility] Dextrose (D50w Syringe) 0 gm IV X1 PRN; Protocol PRN Reason: Hypoglycemia Enoxaparin Sodium (Lovenox) 30 mg SC BID [facility] Ergocalciferol (Vitamin D) 50,000 unit PO Q7D@1000 [facility] Folic Acid (Folic Acid) 1 mg PO DAILY@0800 [facility] Stop: 11/13/19 08:01 Glucagon () 1 mg IM .X1 PRN PRN Reason: Hypoglycemia Thiamine HCl 200 mg/ Sodium (Chloride) 52 mls @ 200 mls/hr IV DAILY [facility] Last Infusion: 11/11/19 02:05 Dose: Infused Documented by: Sodium Chloride () 1,000 mls @ 75 mls/hr IV .[id number] [facility] Last Infusion: 11/11/19 04:48 Dose: 75 mls/hr Documented by: Ampicillin Sodium/Sulbactam (Sodium 3 gm/ Sodium Chloride) 112 mls @ 150 mls/hr IV 0400,1000,1600,2200 [facility] Last Infusion: 11/11/19 04:48 Dose: Infused Documented by: Azithromycin 500 mg/ Dextrose 255 mls @ 250 mls/hr IV Q24@2200 [facility] Sodium Chloride () 250 mls @ 15 mls/hr IV .[id number] PRN PRN Reason: Saline Flush Sodium Chloride () 250 mls @ 15 mls/hr IV .[id number] PRN PRN Reason: Additional IVPB Infusion Labetalol HCl (Trandate) 10 mg IV Q4H PRN PRN PRN Reason: SBP > 160 Last Admin: 11/11/19 06:29 Dose: 10 mg Documented by: Lorazepam (Ativan) 2 mg PO Q2H PRN PRN; Protocol PRN Reason: CIWA score > 8 but <15 Lorazepam (Ativan) 2 mg PO UD PRN; Protocol PRN Reason: CIWA score >/=15. Lorazepam (Ativan) 2 mg IV Q2H PRN PRN; Protocol PRN Reason: CIWA score > 8 but <15 Lorazepam (Ativan) 2 mg IV UD PRN; Protocol PRN Reason: CIWA score >/=15. Miscellaneous Information (Pocket Chamber) 1 each INHALATION PRN PRN PRN Reason: WITH ALBUTEROL MDI Multivitamins/Minerals (Multivitamin With Minerals (Bkc)) 1 tablet PO DAILYCM [facility] Nicotine (Nicoderm Cq (Pbkc)) 7 mg TRANSDERM. DAILY [facility] Nutritional Formula (Lactose Free) (Ensure Clear) 120 ml PO 4X/DAYCM [facility] Ondansetron HCl (Zofran) 4 mg IV Q8H PRN PRN PRN Reason: NAUSEA/VOMITING Sodium Chloride () 10 - 40 ml IV UD PRN PRN Reason: SALINE FLUSH Clinical Impression(s) from Imaging Studies Brain CT 11/10/19 18:57 IMPRESSION: Moderate atrophy and periventricular white matter ischemic changes with multiple old lacunar infarcts. No evidence for acute intracranial bleed Electronically Signed: Rickey Anderson MD at 20:27 EDT , Service support , Cervical Spine CT 11/10/19 19:00 IMPRESSION: No evidence for acute fracture or subluxation of cervical spine. . Mild spondylosis. Old compression fracture of T2 Electronically Signed: Rickey Anderson MD at 20:32 EDT , Service support , Chest X-Ray 11/10/19 20:28 IMPRESSION: Findings suspicious for atypical viral pneumonia possibly Covid nineteen. Clinical correlation is recommended Electronically Signed: Rickey Anderson MD at 21:13 EDT , Service support , Shoulder X-Ray 11/10/19 20:28 IMPRESSION: Degenerative changes. No evidence for acute fracture Electronically Signed: Rickey Anderson MD at 20:47 EDT , Service support , Assessment/Plan All Active Problems (Last Reviewed 11/11/19 @ 01:[address] Soham Puentes MD) Pneumonia (Acute) Sepsis (Acute) Fall (Acute) Failure to thrive in adult (Acute) Protein-calorie malnutrition, severe (Acute) Benzodiazepine withdrawal (Resolved) Cholelithiasis (Resolved) Closed left hip fracture (Resolved) RECOMMENDATIONS: 1. Agree with empiric antibiotics 2. CIWA protocol 3. Okay to discontinue Decadron and systemic anticoagulation from my perspective 4. Await infectious disease opinion on COVID-19 5. Doubt scheduled bronchodilators will make much of a difference given lack of wheezing IMPRESSIONS: 1. Sepsis secondary to probable aspiration pneumonia Patient with profound weakness and a right lower lobe infiltrate on chest x-ray. Patient is COVID 19 test was negative, but will defer to infectious disease on removal of COVID precautions. Patient does appear to be significantly malnourished and this may be adding to his weakness. Patient should have a speech evaluation prior to any p.o. intake. Likely okay to discontinue Decadron from my perspective as there is not significant wheezing on exam. Patient could be placed on a 5-day burst of prednisone if antibiotics are deemed appropriate. 2. Acute kidney injury Patient was significantly volume depleted per ER evaluation. Clinical suspicion for over estimation of GFR given patient's BMI. Patient does appear to be responding well to fluids. No indication for renal replacement therapy at this time. 3. Advanced age/failure to thrive/severe protein calorie malnutrition/recent fall/alcoholism Complicates care, management, recovery and prognosis. Will need to monitor for refeeding syndrome. No fracture was noted with imaging, but do anticipate the need for PT/OT. Patient may require placement. Case management is aware. Agree with CISC protocol. Inpatient E&M: 98644 Init Hosp L3
--- NOTE | 2019-11-11 10:04 | PCM.PN.HOSP ---
Patient Problems: Active and Suspected Problems (Last Reviewed 11/11/19 @ 01:[address] Soham Puentes MD) Pneumonia (Acute) Sepsis (Acute) Fall (Acute) Failure to thrive in adult (Acute) Protein-calorie malnutrition, severe (Acute) Reason for Visit: pneumonia Subjective: Lethargic. Unable to provide any history. Vitals/I&O's: Vital Signs Temp Pulse Resp BP Pulse Ox 36.6 C 63 24 H 167/91 H 96 11/11/19 05:07 11/11/19 08:07 11/11/19 05:07 11/11/19 06:29 11/11/19 07:30 Oxygen Flow Rate (L/min) 2.5 Oxygen Delivery Method Nasal Cannula Weight: 50.1 kg Body Mass Index (BMI) 16.2 Finger Stick Blood Glucose 122 Intake and Output for Last 24 Hours 11/09/19 11/10/19 11/11/19 23:59 23:59 23:59 Intake Total 502.5 / 502.5 596.50 / 596.50 Balance 502.5 / 502.5 596.50 / 596.50 General: No apparent distress, - - lethargic. hunched over in bed. kyphotic. HEENT: Atraumatic, Normocephalic, - - no icterus Neck: No Nodes, Thyroid Normal Size and Texture Lungs: No rhonchi Cardiovascular: Regular rate, Regular Rhythm, Normal S1, Normal S2, No murmurs Abdomen: Bowel Sounds Present, Soft, Non Tender, Non-Distended, No Hepato-splenomegaly Extremities: No edema, No Calf Tenderness Musculoskeletal: Cachexia, Muscle Wasting Neurological: Deep Tendon Reflexes 2+/4 and Symmetrical, - - no clonus Microbiology Past 72 Hours 11/10/19 23:55 Mucosa - Nasopharyngeal Respiratory Panel (PCR) - Final 11/10/19 21:19 Urine, Random Streptococcus pneumoniae Antigen (M - Final 11/10/19 21:19 Interface Orders Legionella Antigen - Final Laboratory Results 11/10/19 18:18: POC Glucose 122 H 11/10/19 20:00: WBC 14.1 H, RBC 4.79, Hgb 14.0, Hct 44.1, MCV 92.1, MCH 29.2, MCHC 31.7 L, RDW Std Deviation 48.8 H, RDW Coeff of Dariela 14.5, Plt Count 273, MPV 9.6, Immature Gran % (Auto) 0.400, Neut % (Auto) 83.3 H, Lymph % (Auto) 8.5 L, [place] % (Auto) 7.2, Eos % (Auto) 0.3, Baso % (Auto) 0.3, Absolute Neuts (auto) 11.7 H, Absolute Lymphs (auto) 1.20, Nucleated RBC % 0 11/10/19 20:00: Sodium 139, Potassium 3.9, Chloride 108 H, Carbon Dioxide 25.0, Anion Gap 6, BUN 9, Creatinine 1.36 H, Estim Creat Clear Calc 34.76, Est GFR (MDRD) Af Amer 66, Est GFR (MDRD) Non-Af 55 L, BUN/Creatinine Ratio 6.6 L, Glucose 124 H, Calcium 9.6, Total Bilirubin 0.80, AST 17, ALT 17, Alkaline Phosphatase 128 H, Troponin I < 0.015, Total Protein 7.3, Albumin 3.6, Globulin 3.7, Albumin/Globulin Ratio 1.0 11/10/19 20:00: Total Creatine Kinase 67 11/10/19 20:00: Ferritin 55, Lactate Dehydrogenase 313 H, Triglycerides 113 11/10/19 21:19: Urine Color Yellow, Urine Clarity Clear, Urine pH 6.5, Ur Specific [place] 1.015, Urine Protein 15 H, Urine Glucose (UA) Normal, Urine Ketones 5 H, Urine Occult Blood Negative, Urine Nitrite Negative, Urine Bilirubin Negative, Urine Urobilinogen Normal, Ur Leukocyte Esterase Negative, Urine RBC 0 SEEN, Urine WBC 0-5 SEEN, Ur Squamous Epith Cells 0-5 SEEN, Urine Bacteria 0 SEEN, Urine Mucus 0 SEEN 11/10/19 23:55: COVID-19 (GÉNESIS) Not Detected 11/11/19 01:00: POC Glucose 185 H 11/11/19 01:20: Lactic Acid Cancelled 11/11/19 01:20: Ethyl Alcohol 5.0 11/11/19 01:20: Fibrinogen 373 11/11/19 01:20: Procalcitonin < 0.04 11/11/19 01:20: Vitamin B12 425, Vitamin D 25-Hydroxy 23.1 11/11/19 03:00: Lactic Acid 1.1 11/11/19 06:15: WBC 12.5 H, RBC 4.55 L, Hgb 13.2, Hct 40.6, MCV 89.2, MCH 29.0, MCHC 32.5, RDW Std Deviation 47.4 H, RDW Coeff of Dariela 14.6, Plt Count 253, MPV 9.4, Immature Gran % (Auto) 0.300, Neut % (Auto) 91.4 H, Lymph % (Auto) 6.0 L, [place] % (Auto) 2.2, Eos % (Auto) 0.0, Baso % (Auto) 0.1, Absolute Neuts (auto) 11.4 H, Absolute Lymphs (auto) 0.75 L, Nucleated RBC % 0 11/11/19 06:15: Sodium 140, Potassium 3.8, Chloride 108 H, Carbon Dioxide 26.0, Anion Gap 6, BUN 9, Creatinine 1.11, Estim Creat Clear Calc 42.00, Est GFR (MDRD) Af Amer 83, Est GFR (MDRD) Non-Af 69, BUN/Creatinine Ratio 8.1 L, Glucose 139 H, Calcium 9.0, Total Bilirubin 0.70, AST 7 L, ALT 15 L, Alkaline Phosphatase 122 H, Total Protein 6.9, Albumin 3.2, Globulin 3.7, Albumin/Globulin Ratio 0.9 11/11/19 08:42: D-Dimer Quant (PE/DVT) 0.96 H* Current Medications Acetaminophen (Tylenol) 650 mg PO Q6H PRN PRN PRN Reason: Pain Score 1-10/Temp > 100.7 F Albuterol Sulfate (Albuterol Sulfate Hfa) 2 puff IH Q2H PRN PRN PRN Reason: Shortness of Breath/Wheezing Benzonatate (Tessalon Perle) 100 mg PO TID PRN PRN PRN Reason: COUGH Dexamethasone Sodium Phosphate (Decadron) 6 mg IV Q24@2200 [facility] Dextrose (D50w Syringe) 0 gm IV X1 PRN; Protocol PRN Reason: Hypoglycemia Enoxaparin Sodium (Lovenox) 30 mg SC BID [facility] Ergocalciferol (Vitamin D) 50,000 unit PO Q7D@1000 [facility] Folic Acid (Folic Acid) 1 mg PO DAILY@0800 [facility] Stop: 11/13/19 08:01 Glucagon () 1 mg IM .X1 PRN PRN Reason: Hypoglycemia Thiamine HCl 200 mg/ Sodium (Chloride) 52 mls @ 200 mls/hr IV DAILY [facility] Last Infusion: 11/11/19 02:05 Dose: Infused Documented by: Sodium Chloride () 1,000 mls @ 75 mls/hr IV .[id number] [facility] Last Infusion: 11/11/19 04:48 Dose: 75 mls/hr Documented by: Ampicillin Sodium/Sulbactam (Sodium 3 gm/ Sodium Chloride) 112 mls @ 150 mls/hr IV 0400,1000,1600,2200 [facility] Last Infusion: 11/11/19 04:48 Dose: Infused Documented by: Azithromycin 500 mg/ Dextrose 255 mls @ 250 mls/hr IV Q24@2200 [facility] Sodium Chloride () 250 mls @ 15 mls/hr IV .[id number] PRN PRN Reason: Saline Flush Sodium Chloride () 250 mls @ 15 mls/hr IV .[id number] PRN PRN Reason: Additional IVPB Infusion Labetalol HCl (Trandate) 10 mg IV Q4H PRN PRN PRN Reason: SBP > 160 Last Admin: 11/11/19 06:29 Dose: 10 mg Documented by: Lorazepam (Ativan) 2 mg PO Q2H PRN PRN; Protocol PRN Reason: CIWA score > 8 but <15 Lorazepam (Ativan) 2 mg PO UD PRN; Protocol PRN Reason: CIWA score >/=15. Lorazepam (Ativan) 2 mg IV Q2H PRN PRN; Protocol PRN Reason: CIWA score > 8 but <15 Lorazepam (Ativan) 2 mg IV UD PRN; Protocol PRN Reason: CIWA score >/=15. Miscellaneous Information (Pocket Chamber) 1 each INHALATION PRN PRN PRN Reason: WITH ALBUTEROL MDI Multivitamins/Minerals (Multivitamin With Minerals (Bkc)) 1 tablet PO DAILYCM [facility] Nicotine (Nicoderm Cq (Pbkc)) 7 mg TRANSDERM. DAILY [facility] Nutritional Formula (Lactose Free) (Ensure Clear) 120 ml PO 4X/DAYCM [facility] Ondansetron HCl (Zofran) 4 mg IV Q8H PRN PRN PRN Reason: NAUSEA/VOMITING Sodium Chloride () 10 - 40 ml IV UD PRN PRN Reason: SALINE FLUSH STROKE Vital Signs/Narrative: Vital Signs Pulse BP Pulse Ox 11/11/19 08:07 63 11/11/19 07:30 96 11/11/19 06:29 85 167/91 H Medical Necessity - Tobacco Use Smoking Status: Current every day smoker Tobacco Use: Cigarettes Assessment/Plan All Active Problems (Last Reviewed 11/11/19 @ 01:[address] Soham Puentes MD) Pneumonia (Acute) Sepsis (Acute) Fall (Acute) Failure to thrive in adult (Acute) Protein-calorie malnutrition, severe (Acute) Benzodiazepine withdrawal (Resolved) Cholelithiasis (Resolved) Closed left hip fracture (Resolved) 1. Sepsis: 2/2 pneumonia COVID-19, strep Ag, legionella Ag, respiratory panel negative supportive mgmt on amp/sulbactam and azithromycin on Dexamethasone ID and pulm consult elevated D-dimer on Dexamethasone 2. Pneumonia suspect aspiration abx as above. 3. Dysphagia modify diet Speech therapy 4. ANASTACIO likely prerenal improving 5. encephalopathy currently lethargic likely 2/2 to suspected dementia with above hold potentiating medications 6. Vitamin D deficiency ergocalciferol 7. alcohol abuse thiamine and folate lorazepam [facility] protocol. 8. VTE prophylaxis: LMWH Inpatient E&M: [id number] [facility] Hosp L3
--- NOTE | 2019-11-11 10:16 | PCM.NTREPORT ---
Nutrition Therapy Report - History Nutrition Services has been consulted to:: Manage nutrient details of diet order Current diet / nutrition support order:: Regular CIB w/ meals - ensure clear 120 cc 4x/day - Anthropometric Measurements Height:: 5 ft 9 in Weight:: 50.1 kg Body Mass Index (BMI):: 16.2 - Relevant Labs Relevant Labs:: WBC 12.5 K/mm3 (4.4-11.0) H 11/11/19 06:15 RBC 4.55 M/mm3 (4.6-6.2) L 11/11/19 06:15 MCHC 31.7 g/dL (32-36) L 11/10/19 20:00 RDW Std Deviation 47.4 fl (35.1-43.9) H 11/11/19 06:15 Neut % (Auto) 91.4 % (47-70) H 11/11/19 06:15 Lymph % (Auto) 6.0 % (19-41) L 11/11/19 06:15 Absolute Neuts (auto) 11.4 X10^3/uL (2.0-7.7) H 11/11/19 06:15 Absolute Lymphs (auto) 0.75 X10^3/uL (0.83-4.51) L 11/11/19 06:15 D-Dimer Quant (PE/DVT) 0.96 FEU/ug/m (0.27-0.49) H* 11/11/19 08:42 Chloride 108 mmol/L (98-107) H 11/11/19 06:15 Creatinine 1.36 mg/dL (0.70-1.30) H 11/10/19 20:00 Est GFR (MDRD) Non-Af 55 mL/min (>60) L 11/10/19 20:00 BUN/Creatinine Ratio 8.1 RATIO (10-20) L 11/11/19 06:15 Glucose 139 mg/dL (74-106) H 11/11/19 06:15 AST 7 U/L (15-37) L 11/11/19 06:15 ALT 15 U/L (16-61) L 11/11/19 06:15 Alkaline Phosphatase 122 U/L (45-117) H 11/11/19 06:15 Lactate Dehydrogenase 313 U/L (87-241) H 11/10/19 20:00 - Assessment Food / Nutrition-Related History:: Pt not able to answer questions - spoke w/ next of kin, ASHLEE, who states that she brings pt dinner every night and lately he hasn't been eating much if at all. He gets MOW and usually drinks 2 ensure per day. He also likes CIB for increased nutrition. Ashlee concerned about decreased appetite and states that he sleeps a lot more than usual. He has been on meds to help increase appetite. No chewing/swallowing issues noted. UBW: 61.36 kg - wt loss of 19.4% in past 6 months (sig for malnutrition). PO intake on ICU to be established. [ End ] - Nutrition Diagnosis Problem / Etiology / Signs & Symptoms (PES):: Pt with inadequate oral po intake x 6 mo r/t c/o no appetite AEB 19.4 % wt loss x 6 mo and continued poor po intake. [ End ] Evidence of Malnutrition Exists:: Yes Severe PCM:: Chronic Illness - Nutrition Intervention Nutrition Prescription:: [id number] ramses / 60-70 gm pro / day - Food / Nutrient Delivery Interventions Summary of nutrition intervention:: Will continue with liberal Regular diet w/ ONS at meals and medpass d/t signs and symptoms of malnutrition. Rec consider appetite stimulant d/t hx of no appetite and poor po intake. Nutrition education provided?: No - MNT Monitoring Further MNT monitoring and evaluation required?: Yes MNT Follow-up in:: 3-5 days - if questions, please call RD/LD at [phone]
[2019-11-11] MEDS: Enoxaparin 30 MG/0.3 ML Syringe SC ×2 (11:22→22:09)
--- NOTE | 2019-11-11 11:53 | CASEMGMT ---
Addendum entered by Ml Emanuel 11/11/19 15:20: SW did place a call to pt's caregiver Ashlee to get additional information. Ashlee confirms that she is the caregiver for pt and she assists pt with cooking his meals, making him coffee, doing dishes, washing clothes, keeping him company, buying food. Ashlee states that normally pt is alert and orientated x3, is own person, able to make own decisions. Ashlee states that pt has CM through [facility] and provided number [phone]. Ashlee also states that pt has aide services coming in Thursday and to help clean and she believes the aides are through [facility]. Ashlee states that as far as she knows pt doesn't have any HCPOA or LW documents. Ashlee states she would like to see pt come back home but is open to whatever is best for pt. APOORVA placed a call to [facility]. Pt has CM Jesusita. SW spoke to Jesusita. Jesusita states pt pt has Home Health Aide, an RN that comes in once a week for medication management, med dispenser, emergency response button and Home Delivered Meals. Jesusita states pt had mentioned possibly [facility]. Plan: TBD. SW to continue to follow. Original Note: Social Work Note SW participated in ICU rounds. Pt with still mumble speech today and confusion. Pt in isolation/precautions. SW unable to speak with pt today. SW to continue to follow for safe discharge plan. SW will speak with pt once pt is able to hold conversation. Plan: TBD. Ml Emanuel HAND PLATE STACKER, VP & GENERAL COUNSEL
--- NOTE | 2019-11-11 14:35 | PCM.HP.ID ---
Problem List (1) Pneumonia Status: Acute (2) Failure to thrive in adult Status: Acute Reason for Consult: pneumonia Consulted by: Dr. Gill History of Present Illness: The patient is a 73 year old M with h/o etoh abuse, presented after being found down at home. Caregiver and friend Ashlee reports he has been sick for a week, little po intake, coughing up green stuff, falls, weakness. Has a cat who scratches him sometimes. Fell and bruised his L shoulder, came to ED 11/08, sent out. Came back 11/09, admitted to icu, covid pcr neg, started on azithro and unasyn as well as decadron. Pt unable to answer questions or ROS. - Medical History Past Medical History (Chronic Problems): Chronic Problems (Last Reviewed 11/11/19 @ 01:[address] Soham Puentes MD) Debility (Chronic) Anxiety (Chronic) Dizziness (Chronic) History of kidney stones (Chronic) IBS (irritable bowel syndrome) (Chronic) GERD (gastroesophageal reflux disease) (Chronic) Depression (Chronic) Anemia (Chronic) Hypertension (Chronic) Chronic obstructive pulmonary disease (COPD) (Chronic) Wernicke encephalopathy (Chronic) Alcohol abuse (Chronic) Seizure disorder (Chronic) Tobacco abuse (Chronic) Allergies/Adverse Reactions: Allergies bupropion HCl [From Wellbutrin] Allergy (Verified 11/10/19 18:05) SHAKING quetiapine fumarate [From Seroquel] Allergy (Verified 11/10/19 18:05) Unknown trazodone Adverse Reaction (Verified 11/10/19 18:05) SHAKING Home Medications: Ambulatory Orders Medication Instructions Recorded Buspirone HCl 10 mg PO BID 08/10/19 Lamotrigine [Lamictal] 200 mg PO DAILY 08/10/19 Omeprazole 40 mg PO DAILY 08/10/19 Risperidone 1 mg PO QHS 08/10/19 Trihexyphenidyl HCl 2 mg PO BID 08/10/19 fluoxetine 40 mg capsule 40 mg PO DAILY #90 cap 09/21/19 lisinopril 10 mg tablet 10 mg PO DAILY #30 tab 10/12/19 amlodipine 5 mg tablet 2.5 mg PO DAILY #30 tab 10/19/19 Acetaminophen [Tylenol] 1,000 mg PO Q8 PRN 11/11/19 Denosumab [Prolia] 60 mg SUBCUT [id number] 11/11/19 Melatonin 3 mg PO QHS 11/11/19 Mirtazapine 7.5 mg PO QHS 11/11/19 Multivitamin 1 ea PO 11/11/19 Tamsulosin HCl 0.4 mg PO DAILY@1730 11/11/19 - Social History Tobacco Use: cigarettes Vital Signs Temp Pulse Resp BP Pulse Ox 97.9 F 64 20 H 111/79 96 11/11/19 11:20 11/11/19 11:20 11/11/19 11:20 11/11/19 11:20 11/11/19 11:20 Oxygen Flow Rate (L/min) 3 Oxygen Delivery Method Nasal Cannula Weight: 50.1 kg Body Mass Index (BMI) 16.2 Finger Stick Blood Glucose 122 Microbiology Past 72 Hours 11/10/19 23:55 Respiratory Panel (PCR) - Final Mucosa - Nasopharyngeal 11/10/19 21:19 Streptococcus pneumoniae Antigen (M - Final Urine, Random 11/10/19 21:19 Legionella Antigen - Final Interface Orders Laboratory Tests Past 24 Hrs 11/10/19 11/10/19 11/10/19 20:00 20:00 20:00 WBC 14.1 H RBC 4.79 Hgb 14.0 Hct 44.1 MCV 92.1 MCH 29.2 MCHC 31.7 L RDW Std Deviation 48.8 H RDW Coeff of Dariela 14.5 Plt Count 273 MPV 9.6 Immature Gran % (Auto) 0.400 Neut % (Auto) 83.3 H Lymph % (Auto) 8.5 L [place] % (Auto) 7.2 Eos % (Auto) 0.3 Baso % (Auto) 0.3 Absolute Neuts (auto) 11.7 H Absolute Lymphs (auto) 1.20 Nucleated RBC % 0 Fibrinogen D-Dimer Quant (PE/DVT) Sodium 139 Potassium 3.9 Chloride 108 H Carbon Dioxide 25.0 Anion Gap 6 BUN 9 Creatinine 1.36 H Estim Creat Clear Calc 34.76 Est GFR (MDRD) Af Amer 66 Est GFR (MDRD) Non-Af 55 L BUN/Creatinine Ratio 6.6 L Glucose 124 H Lactic Acid Calcium 9.6 Ferritin Total Bilirubin 0.80 AST 17 ALT 17 Alkaline Phosphatase 128 H Lactate Dehydrogenase Total Creatine Kinase 67 Troponin I < 0.015 Total Protein 7.3 Albumin 3.6 Globulin 3.7 Albumin/Globulin Ratio 1.0 Triglycerides Vitamin B12 Vitamin D 25-Hydroxy Procalcitonin Urine Color Urine Clarity Urine pH Ur Specific [place] Urine Protein Urine Glucose (UA) Urine Ketones Urine Occult Blood Urine Nitrite Urine Bilirubin Urine Urobilinogen Ur Leukocyte Esterase Urine RBC Urine WBC Ur Squamous Epith Cells Urine Bacteria Urine Mucus Ethyl Alcohol COVID-19 (GÉNESIS) 11/10/19 11/10/19 11/10/19 20:00 21:19 23:55 WBC RBC Hgb Hct MCV MCH MCHC RDW Std Deviation RDW Coeff of Dariela Plt Count MPV Immature Gran % (Auto) Neut % (Auto) Lymph % (Auto) [place] % (Auto) Eos % (Auto) Baso % (Auto) Absolute Neuts (auto) Absolute Lymphs (auto) Nucleated RBC % Fibrinogen D-Dimer Quant (PE/DVT) Sodium Potassium Chloride Carbon Dioxide Anion Gap BUN Creatinine Estim Creat Clear Calc Est GFR (MDRD) Af Amer Est GFR (MDRD) Non-Af BUN/Creatinine Ratio Glucose Lactic Acid Calcium Ferritin 55 Total Bilirubin AST ALT Alkaline Phosphatase Lactate Dehydrogenase 313 H Total Creatine Kinase Troponin I Total Protein Albumin Globulin Albumin/Globulin Ratio Triglycerides 113 Vitamin B12 Vitamin D 25-Hydroxy Procalcitonin Urine Color Yellow Urine Clarity Clear Urine pH 6.5 Ur Specific [place] 1.015 Urine Protein 15 H Urine Glucose (UA) Normal Urine Ketones 5 H Urine Occult Blood Negative Urine Nitrite Negative Urine Bilirubin Negative Urine Urobilinogen Normal Ur Leukocyte Esterase Negative Urine RBC 0 SEEN Urine WBC 0-5 SEEN Ur Squamous Epith Cells 0-5 SEEN Urine Bacteria 0 SEEN Urine Mucus 0 SEEN Ethyl Alcohol COVID-19 (GÉNESIS) Not Detected 11/11/19 11/11/19 11/11/19 01:20 01:20 01:20 WBC RBC Hgb Hct MCV MCH MCHC RDW Std Deviation RDW Coeff of Dariela Plt Count MPV Immature Gran % (Auto) Neut % (Auto) Lymph % (Auto) [place] % (Auto) Eos % (Auto) Baso % (Auto) Absolute Neuts (auto) Absolute Lymphs (auto) Nucleated RBC % Fibrinogen 373 D-Dimer Quant (PE/DVT) Sodium Potassium Chloride Carbon Dioxide Anion Gap BUN Creatinine Estim Creat Clear Calc Est GFR (MDRD) Af Amer Est GFR (MDRD) Non-Af BUN/Creatinine Ratio Glucose Lactic Acid Cancelled Calcium Ferritin Total Bilirubin AST ALT Alkaline Phosphatase Lactate Dehydrogenase Total Creatine Kinase Troponin I Total Protein Albumin Globulin Albumin/Globulin Ratio Triglycerides Vitamin B12 Vitamin D 25-Hydroxy Procalcitonin Urine Color Urine Clarity Urine pH Ur Specific [place] Urine Protein Urine Glucose (UA) Urine Ketones Urine Occult Blood Urine Nitrite Urine Bilirubin Urine Urobilinogen Ur Leukocyte Esterase Urine RBC Urine WBC Ur Squamous Epith Cells Urine Bacteria Urine Mucus Ethyl Alcohol 5.0 COVID-19 (GÉNESIS) 11/11/19 11/11/19 11/11/19 01:20 01:20 03:00 WBC RBC Hgb Hct MCV MCH MCHC RDW Std Deviation RDW Coeff of Dariela Plt Count MPV Immature Gran % (Auto) Neut % (Auto) Lymph % (Auto) [place] % (Auto) Eos % (Auto) Baso % (Auto) Absolute Neuts (auto) Absolute Lymphs (auto) Nucleated RBC % Fibrinogen D-Dimer Quant (PE/DVT) Sodium Potassium Chloride Carbon Dioxide Anion Gap BUN Creatinine Estim Creat Clear Calc Est GFR (MDRD) Af Amer Est GFR (MDRD) Non-Af BUN/Creatinine Ratio Glucose Lactic Acid 1.1 Calcium Ferritin Total Bilirubin AST ALT Alkaline Phosphatase Lactate Dehydrogenase Total Creatine Kinase Troponin I Total Protein Albumin Globulin Albumin/Globulin Ratio Triglycerides Vitamin B12 425 Vitamin D 25-Hydroxy 23.1 Procalcitonin < 0.04 Urine Color Urine Clarity Urine pH Ur Specific [place] Urine Protein Urine Glucose (UA) Urine Ketones Urine Occult Blood Urine Nitrite Urine Bilirubin Urine Urobilinogen Ur Leukocyte Esterase Urine RBC Urine WBC Ur Squamous Epith Cells Urine Bacteria Urine Mucus Ethyl Alcohol COVID-19 (GÉNESIS) 11/11/19 11/11/19 11/11/19 06:15 06:15 08:42 WBC 12.5 H RBC 4.55 L Hgb 13.2 Hct 40.6 MCV 89.2 MCH 29.0 MCHC 32.5 RDW Std Deviation 47.4 H RDW Coeff of Dariela 14.6 Plt Count 253 MPV 9.4 Immature Gran % (Auto) 0.300 Neut % (Auto) 91.4 H Lymph % (Auto) 6.0 L [place] % (Auto) 2.2 Eos % (Auto) 0.0 Baso % (Auto) 0.1 Absolute Neuts (auto) 11.4 H Absolute Lymphs (auto) 0.75 L Nucleated RBC % 0 Fibrinogen D-Dimer Quant (PE/DVT) 0.96 H* Sodium 140 Potassium 3.8 Chloride 108 H Carbon Dioxide 26.0 Anion Gap 6 BUN 9 Creatinine 1.11 Estim Creat Clear Calc 42.00 Est GFR (MDRD) Af Amer 83 Est GFR (MDRD) Non-Af 69 BUN/Creatinine Ratio 8.1 L Glucose 139 H Lactic Acid Calcium 9.0 Ferritin Total Bilirubin 0.70 AST 7 L ALT 15 L Alkaline Phosphatase 122 H Lactate Dehydrogenase Total Creatine Kinase Troponin I Total Protein 6.9 Albumin 3.2 Globulin 3.7 Albumin/Globulin Ratio 0.9 Triglycerides Vitamin B12 Vitamin D 25-Hydroxy Procalcitonin Urine Color Urine Clarity Urine pH Ur Specific [place] Urine Protein Urine Glucose (UA) Urine Ketones Urine Occult Blood Urine Nitrite Urine Bilirubin Urine Urobilinogen Ur Leukocyte Esterase Urine RBC Urine WBC Ur Squamous Epith Cells Urine Bacteria Urine Mucus Ethyl Alcohol COVID-19 (GÉNESIS) - Other Studies Radiology: [] reviewed Other Studies: [] Route of nutrition/ use of supplements: [] Nutritional Intake: [] IV Site: [] Charles Catheter: [] - Physical Exam General: Lethargic, Non-Cooperative HEENT: Atraumatic, PERRLA, EOMI Neck: Supple, No Nodes Lungs: Clear to auscultation, Normal air movement Cardiovascular: Bradycardic Abdomen: Soft, Non Tender, Non-Distended Extremities: No edema Skin: No rashes, - - bruising L shoulder IV Site: Peripheral, without redness Musculoskeletal: No Tenderness to Palpation of Joints or Extremities Neurological: - - non verbal, not following commands - Assessment/Plan Antibiotics: [] Assessment/Plan: [] Active and Suspected Problems (Last Reviewed 11/11/19 @ 01:[address] Soham Puentes MD) Pneumonia (Acute) Sepsis (Acute) Fall (Acute) Failure to thrive in adult (Acute) Protein-calorie malnutrition, severe (Acute) Encephalopathy, failure to thrive. No fever, no lymphopenia on admit, normal ferritin, covid pcr neg, green sputum for past week per his caregiver. Low suspicion for covid, so will d/c isolation and stop steroids. PCT was normal. UAg neg, will stop azithro. Cont unasyn for suspected aspiration. Will follow, thank you, d/w nursing.
[2019-11-11] MEDS: LORazepam 2 MG/ML Syringe IV (23:01)
[2019-11-12] VITALS (13 sets, daily range): BP systolic 147–160; BP diastolic 70–108; PULSE 52–88; RESP 20; TEMP 36.2–37.3; O2SAT 92–99
[2019-11-12 07:24] LABS: Absolute Lymphocyte Count 1.83 X10^3/uL (0.83-4.51); Absolute Neutrophil Count 7.8 X10^3/uL (2.0-7.7); Basophil# 0.04 X10^3/uL; Basophil% 0.4 % (0-1); Eosinophil# 0.14 X10^3/uL; Eosinophils% 1.3 % (0-5); Hematocrit 37.6 % (40-54); Hemoglobin 11.9 g/dL (13.0-16.5); Lymphocyte # 1.83 X10^3/ul (4.0); Lymphocyte % 16.8 % (19-41); Mean Corp Hgb Conc 31.6 g/dL (32-36); Mean Corpuscular Hgb 29.5 pg (27.0-32.0); Mean Corpuscular Volume 93.1 fL (80-94); Mean Platelet Vol. 9.5 fl (6.2-12.0); Monocyte# 1.04 X10^3/uL; Monocyte% 9.5 % (0-10); NRBC Flagged by Analyzer 0 % (0-5); Neutrophil # 7.82 X10^3/uL (2.7-7.7); Neutrophil % 71.7 % (47-70); Platelet Count 227 K/mm3 (150-450); RBC Distribution Width CV 14.7 % (11.6-14.6); RBC Distribution Width SD 50.1 fl (35.1-43.9); Red Blood Count 4.04 M/mm3 (4.6-6.2); White Blood Count 10.9 K/mm3 (4.4-11.0)
[2019-11-12] MEDS: 0.9% Normal Saline 1,000 ML 75 ML IV ×2 (07:48→21:50)
[2019-11-12 08:04] LABS: Anion Gap 4 (5-15); BUN 10 mg/dL (7-18); BUN/Creat Ratio 11.4 RATIO (10-20); Calcium,Total 8.5 mg/dL (8.5-10.1); Chloride 111 mmol/L (98-107); Creatinine, Serum 0.88 mg/dL (0.70-1.30); EST Glomerular Filtration Rate 91 mL/min (>60); Est Glom Filt Rate - Afr Amer 110 mL/min (>60); Estimated Creatinine Clearance 52.98 ml/min; Glucose 90 mg/dL (74-106); Potassium 3.1 mmol/L (3.5-5.1); Sodium Level 139 mmol/L (136-145)
--- NOTE | 2019-11-12 09:33 | PN_ITS ---
Subjective: Patient transferred out of the intensive care unit yesterday. No acute issues reported overnight. Patient still remains on minimal nasal cannula oxygen and n.p.o. secondary to swallow concerns. Patient is more interactive today, but appears to be confused reporting there was a black cat in the room. General: Alert, Confused, Disoriented, - - Cachectic. No conversational dyspnea HEENT: Atraumatic, PERRLA, EOMI, Normocephalic Oral: Dry Mucosa, - - Edentulous Neck: Supple, No JVD, No Nodes, Trachea Midline Lungs: No rhonchi, No wheeze, No rales, Diminished, - - Symmetric expansion Cardiovascular: Normal S1, Normal S2, Bradycardic, Murmur, No rub noted, No Gallop Abdomen: Bowel Sounds Present, Soft, Non Tender, Non-Distended Extremities: No cyanosis, No edema, Clubbing Skin: - - No change compared to previous Musculoskeletal: Cachexia, Muscle Wasting Lymphatic: No Cervical, Supraclavicular, or Inguinal Adenopathy Neurological: Neuro grossly intact - Some dysarthria, the may be secondary to lack of teeth and dry mouth Psych/Mental Status: Flat Affect Vital Signs Temp Pulse Resp BP Pulse Ox 37.3 C 59 L 20 H 147/88 H 92 11/12/19 03:15 11/12/19 04:00 11/12/19 03:15 11/12/19 03:15 11/12/19 07:50 Oxygen Flow Rate (L/min) 3 Oxygen Delivery Method Nasal Cannula Weight: 50.1 kg Body Mass Index (BMI) 16.2 Finger Stick Blood Glucose 122 Intake and Output for Last 24 Hours 11/10/19 11/11/19 11/12/19 23:59 23:59 23:59 Intake Total 502.5 / 502.5 1755.00 / 1755.00 1068.25 / 1068.25 Output Total 0 / 0 Balance 502.5 / 502.5 1755.00 / 1755.00 1068.25 / 1068.25 Labs (Last 48 Hours) 11/10/19 11/10/19 11/10/19 18:18 20:00 20:00 WBC 14.1 H RBC 4.79 Hgb 14.0 Hct 44.1 MCV 92.1 MCH 29.2 MCHC 31.7 L RDW Std Deviation 48.8 H RDW Coeff of Dariela 14.5 Plt Count 273 MPV 9.6 Immature Gran % (Auto) 0.400 Neut % (Auto) 83.3 H Lymph % (Auto) 8.5 L [place] % (Auto) 7.2 Eos % (Auto) 0.3 Baso % (Auto) 0.3 Absolute Neuts (auto) 11.7 H Absolute Lymphs (auto) 1.20 Nucleated RBC % 0 Fibrinogen D-Dimer Quant (PE/DVT) Sodium 139 Potassium 3.9 Chloride 108 H Carbon Dioxide 25.0 Anion Gap 6 BUN 9 Creatinine 1.36 H Estim Creat Clear Calc 34.76 Est GFR (MDRD) Af Amer 66 Est GFR (MDRD) Non-Af 55 L BUN/Creatinine Ratio 6.6 L Glucose 124 H Lactic Acid Calcium 9.6 Ferritin Total Bilirubin 0.80 AST 17 ALT 17 Alkaline Phosphatase 128 H Lactate Dehydrogenase Total Creatine Kinase Troponin I < 0.015 Total Protein 7.3 Albumin 3.6 Globulin 3.7 Albumin/Globulin Ratio 1.0 Triglycerides Vitamin B12 Vitamin D 25-Hydroxy Procalcitonin Urine Color Urine Clarity Urine pH Ur Specific [place] Urine Protein Urine Glucose (UA) Urine Ketones Urine Occult Blood Urine Nitrite Urine Bilirubin Urine Urobilinogen Ur Leukocyte Esterase Urine RBC Urine WBC Ur Squamous Epith Cells Urine Bacteria Urine Mucus Ethyl Alcohol COVID-19 (GÉNESIS) POC Glucose 122 H 11/10/19 11/10/19 11/10/19 20:00 20:00 21:19 WBC RBC Hgb Hct MCV MCH MCHC RDW Std Deviation RDW Coeff of Dariela Plt Count MPV Immature Gran % (Auto) Neut % (Auto) Lymph % (Auto) [place] % (Auto) Eos % (Auto) Baso % (Auto) Absolute Neuts (auto) Absolute Lymphs (auto) Nucleated RBC % Fibrinogen D-Dimer Quant (PE/DVT) Sodium Potassium Chloride Carbon Dioxide Anion Gap BUN Creatinine Estim Creat Clear Calc Est GFR (MDRD) Af Amer Est GFR (MDRD) Non-Af BUN/Creatinine Ratio Glucose Lactic Acid Calcium Ferritin 55 Total Bilirubin AST ALT Alkaline Phosphatase Lactate Dehydrogenase 313 H Total Creatine Kinase 67 Troponin I Total Protein Albumin Globulin Albumin/Globulin Ratio Triglycerides 113 Vitamin B12 Vitamin D 25-Hydroxy Procalcitonin Urine Color Yellow Urine Clarity Clear Urine pH 6.5 Ur Specific [place] 1.015 Urine Protein 15 H Urine Glucose (UA) Normal Urine Ketones 5 H Urine Occult Blood Negative Urine Nitrite Negative Urine Bilirubin Negative Urine Urobilinogen Normal Ur Leukocyte Esterase Negative Urine RBC 0 SEEN Urine WBC 0-5 SEEN Ur Squamous Epith Cells 0-5 SEEN Urine Bacteria 0 SEEN Urine Mucus 0 SEEN Ethyl Alcohol COVID-19 (GÉNESIS) POC Glucose 11/10/19 11/11/19 11/11/19 23:55 01:00 01:20 WBC RBC Hgb Hct MCV MCH MCHC RDW Std Deviation RDW Coeff of Dariela Plt Count MPV Immature Gran % (Auto) Neut % (Auto) Lymph % (Auto) [place] % (Auto) Eos % (Auto) Baso % (Auto) Absolute Neuts (auto) Absolute Lymphs (auto) Nucleated RBC % Fibrinogen D-Dimer Quant (PE/DVT) Sodium Potassium Chloride Carbon Dioxide Anion Gap BUN Creatinine Estim Creat Clear Calc Est GFR (MDRD) Af Amer Est GFR (MDRD) Non-Af BUN/Creatinine Ratio Glucose Lactic Acid Cancelled Calcium Ferritin Total Bilirubin AST ALT Alkaline Phosphatase Lactate Dehydrogenase Total Creatine Kinase Troponin I Total Protein Albumin Globulin Albumin/Globulin Ratio Triglycerides Vitamin B12 Vitamin D 25-Hydroxy Procalcitonin Urine Color Urine Clarity Urine pH Ur Specific [place] Urine Protein Urine Glucose (UA) Urine Ketones Urine Occult Blood Urine Nitrite Urine Bilirubin Urine Urobilinogen Ur Leukocyte Esterase Urine RBC Urine WBC Ur Squamous Epith Cells Urine Bacteria Urine Mucus Ethyl Alcohol COVID-19 (GÉNESIS) Not Detected POC Glucose 185 H 11/11/19 11/11/19 11/11/19 01:20 01:20 01:20 WBC RBC Hgb Hct MCV MCH MCHC RDW Std Deviation RDW Coeff of Dariela Plt Count MPV Immature Gran % (Auto) Neut % (Auto) Lymph % (Auto) [place] % (Auto) Eos % (Auto) Baso % (Auto) Absolute Neuts (auto) Absolute Lymphs (auto) Nucleated RBC % Fibrinogen 373 D-Dimer Quant (PE/DVT) Sodium Potassium Chloride Carbon Dioxide Anion Gap BUN Creatinine Estim Creat Clear Calc Est GFR (MDRD) Af Amer Est GFR (MDRD) Non-Af BUN/Creatinine Ratio Glucose Lactic Acid Calcium Ferritin Total Bilirubin AST ALT Alkaline Phosphatase Lactate Dehydrogenase Total Creatine Kinase Troponin I Total Protein Albumin Globulin Albumin/Globulin Ratio Triglycerides Vitamin B12 Vitamin D 25-Hydroxy Procalcitonin < 0.04 Urine Color Urine Clarity Urine pH Ur Specific [place] Urine Protein Urine Glucose (UA) Urine Ketones Urine Occult Blood Urine Nitrite Urine Bilirubin Urine Urobilinogen Ur Leukocyte Esterase Urine RBC Urine WBC Ur Squamous Epith Cells Urine Bacteria Urine Mucus Ethyl Alcohol 5.0 COVID-19 (GÉNESIS) POC Glucose 11/11/19 11/11/19 11/11/19 01:20 03:00 06:15 WBC 12.5 H RBC 4.55 L Hgb 13.2 Hct 40.6 MCV 89.2 MCH 29.0 MCHC 32.5 RDW Std Deviation 47.4 H RDW Coeff of Dariela 14.6 Plt Count 253 MPV 9.4 Immature Gran % (Auto) 0.300 Neut % (Auto) 91.4 H Lymph % (Auto) 6.0 L [place] % (Auto) 2.2 Eos % (Auto) 0.0 Baso % (Auto) 0.1 Absolute Neuts (auto) 11.4 H Absolute Lymphs (auto) 0.75 L Nucleated RBC % 0 Fibrinogen D-Dimer Quant (PE/DVT) Sodium Potassium Chloride Carbon Dioxide Anion Gap BUN Creatinine Estim Creat Clear Calc Est GFR (MDRD) Af Amer Est GFR (MDRD) Non-Af BUN/Creatinine Ratio Glucose Lactic Acid 1.1 Calcium Ferritin Total Bilirubin AST ALT Alkaline Phosphatase Lactate Dehydrogenase Total Creatine Kinase Troponin I Total Protein Albumin Globulin Albumin/Globulin Ratio Triglycerides Vitamin B12 425 Vitamin D 25-Hydroxy 23.1 Procalcitonin Urine Color Urine Clarity Urine pH Ur Specific [place] Urine Protein Urine Glucose (UA) Urine Ketones Urine Occult Blood Urine Nitrite Urine Bilirubin Urine Urobilinogen Ur Leukocyte Esterase Urine RBC Urine WBC Ur Squamous Epith Cells Urine Bacteria Urine Mucus Ethyl Alcohol COVID-19 (GÉNESIS) POC Glucose 11/11/19 11/11/19 11/12/19 06:15 08:42 07:14 WBC 10.9 RBC 4.04 L Hgb 11.9 L Hct 37.6 L MCV 93.1 MCH 29.5 MCHC 31.6 L RDW Std Deviation 50.1 H RDW Coeff of Dariela 14.7 H Plt Count 227 MPV 9.5 Immature Gran % (Auto) 0.300 Neut % (Auto) 71.7 H Lymph % (Auto) 16.8 L [place] % (Auto) 9.5 Eos % (Auto) 1.3 Baso % (Auto) 0.4 Absolute Neuts (auto) 7.8 H Absolute Lymphs (auto) 1.83 Nucleated RBC % 0 Fibrinogen D-Dimer Quant (PE/DVT) 0.96 H* Sodium 140 Potassium 3.8 Chloride 108 H Carbon Dioxide 26.0 Anion Gap 6 BUN 9 Creatinine 1.11 Estim Creat Clear Calc 42.00 Est GFR (MDRD) Af Amer 83 Est GFR (MDRD) Non-Af 69 BUN/Creatinine Ratio 8.1 L Glucose 139 H Lactic Acid Calcium 9.0 Ferritin Total Bilirubin 0.70 AST 7 L ALT 15 L Alkaline Phosphatase 122 H Lactate Dehydrogenase Total Creatine Kinase Troponin I Total Protein 6.9 Albumin 3.2 Globulin 3.7 Albumin/Globulin Ratio 0.9 Triglycerides Vitamin B12 Vitamin D 25-Hydroxy Procalcitonin Urine Color Urine Clarity Urine pH Ur Specific [place] Urine Protein Urine Glucose (UA) Urine Ketones Urine Occult Blood Urine Nitrite Urine Bilirubin Urine Urobilinogen Ur Leukocyte Esterase Urine RBC Urine WBC Ur Squamous Epith Cells Urine Bacteria Urine Mucus Ethyl Alcohol COVID-19 (GÉNESIS) POC Glucose 11/12/19 07:14 WBC RBC Hgb Hct MCV MCH MCHC RDW Std Deviation RDW Coeff of Dariela Plt Count MPV Immature Gran % (Auto) Neut % (Auto) Lymph % (Auto) [place] % (Auto) Eos % (Auto) Baso % (Auto) Absolute Neuts (auto) Absolute Lymphs (auto) Nucleated RBC % Fibrinogen D-Dimer Quant (PE/DVT) Sodium 139 Potassium 3.1 L Chloride 111 H Carbon Dioxide 24.0 Anion Gap 4 L BUN 10 Creatinine 0.88 Estim Creat Clear Calc 52.98 Est GFR (MDRD) Af Amer 110 Est GFR (MDRD) Non-Af 91 BUN/Creatinine Ratio 11.4 Glucose 90 Lactic Acid Calcium 8.5 Ferritin Total Bilirubin AST ALT Alkaline Phosphatase Lactate Dehydrogenase Total Creatine Kinase Troponin I Total Protein Albumin Globulin Albumin/Globulin Ratio Triglycerides Vitamin B12 Vitamin D 25-Hydroxy Procalcitonin Urine Color Urine Clarity Urine pH Ur Specific [place] Urine Protein Urine Glucose (UA) Urine Ketones Urine Occult Blood Urine Nitrite Urine Bilirubin Urine Urobilinogen Ur Leukocyte Esterase Urine RBC Urine WBC Ur Squamous Epith Cells Urine Bacteria Urine Mucus Ethyl Alcohol COVID-19 (GÉNESIS) POC Glucose Microbiology 11/10/19 23:55 Mucosa - Nasopharyngeal Respiratory Panel (PCR) - Final 11/10/19 21:19 Urine, Random Streptococcus pneumoniae Antigen (M - Final 11/10/19 21:19 Interface Orders Legionella Antigen - Final Medical Necessity - Tobacco Use Smoking Status: Current every day smoker Tobacco Use: Cigarettes Assessment/Plan All Active Problems (Last Reviewed 11/11/19 @ 01:[address] Soham Puentes MD) Pneumonia (Acute) Sepsis (Acute) Fall (Acute) Failure to thrive in adult (Acute) Protein-calorie malnutrition, severe (Acute) Benzodiazepine withdrawal (Resolved) Cholelithiasis (Resolved) Closed left hip fracture (Resolved) RECOMMENDATIONS: 1. Agree with empiric antibiotics 2. CIWA protocol 3. Wean oxygen as tolerated 4. Hemodynamically stable on minimal nasal cannula oxygen. Will sign off from a pulmonary perspective IMPRESSIONS: 1. Sepsis secondary to probable aspiration pneumonia Patient with profound weakness and a right lower lobe infiltrate on chest x-ray. Patient is COVID 19 test was negative, so patient was taken off of precautions. Patient does appear to be significantly malnourished and this may be adding to his weakness. Patient should have a speech evaluation prior to any p.o. intake. Agree with treatment for aspiration pneumonia 2. Acute kidney injury Patient was significantly volume depleted per ER evaluation. Clinical suspicion for over estimation of GFR given patient's BMI. Patient does appear to be responding well to fluids. No indication for renal replacement therapy at this time. 3. Advanced age/failure to thrive/severe protein calorie malnutrition/recent fall/alcoholism Complicates care, management, recovery and prognosis. Will need to monitor for refeeding syndrome. No fracture was noted with imaging, but do anticipate the need for PT/OT. Patient may require placement. Case management is aware. Agree with CIWA protocol. Inpatient E&M: [id number] [facility] Hosp L2
--- NOTE | 2019-11-12 09:51 | PN_ITS ---
Patient Problems: Active and Suspected Problems (Last Reviewed 11/11/19 @ 01:[address] Soham Puentes MD) Pneumonia (Acute) Sepsis (Acute) Fall (Acute) Failure to thrive in adult (Acute) Protein-calorie malnutrition, severe (Acute) Reason for Visit: pneumonia Subjective: Asks me if I see the cat on the shelf. Say he knows this cat. Vitals/I&O's: Vital Signs Temp Pulse Resp BP Pulse Ox 37.3 C 59 L 20 H 147/88 H 92 11/12/19 03:15 11/12/19 04:00 11/12/19 03:15 11/12/19 03:15 11/12/19 07:50 Oxygen Flow Rate (L/min) 3 Oxygen Delivery Method Nasal Cannula Weight: 50.1 kg Body Mass Index (BMI) 16.2 Finger Stick Blood Glucose 122 Intake and Output for Last 24 Hours 11/10/19 11/11/19 11/12/19 23:59 23:59 23:59 Intake Total 502.5 / 502.5 1755.00 / 1755.00 1068.25 / 1068.25 Output Total 0 / 0 Balance 502.5 / 502.5 1755.00 / 1755.00 1068.25 / 1068.25 General: Confused, - - More alert and speaking. Unaware of where he is. HEENT: Atraumatic, Normocephalic Oral: Moist Mucosa, No Gingival or Mucosal Lesions/ Ulcerations Neck: No Nodes, Trachea Midline Lungs: Diminished, - - coarse crackles throughout. Cardiovascular: Regular rate, No Ectopic Activity Abdomen: Bowel Sounds Present, Soft, Non Tender, Non-Distended, No Hepato- splenomegaly Extremities: No edema Musculoskeletal: - - kyphotic Psych/Mental Status: Anxious Microbiology Past 72 Hours 11/10/19 23:55 Mucosa - Nasopharyngeal Respiratory Panel (PCR) - Final 11/10/19 21:19 Urine, Random Streptococcus pneumoniae Antigen (M - Final 11/10/19 21:19 Interface Orders Legionella Antigen - Final Laboratory Results 11/12/19 07:14: WBC 10.9, RBC 4.04 L, Hgb 11.9 L, Hct 37.6 L, MCV 93.1, MCH 29.5, MCHC 31.6 L, RDW Std Deviation 50.1 H, RDW Coeff of Dariela 14.7 H, Plt Count 227, MPV 9.5, Immature Gran % (Auto) 0.300, Neut % (Auto) 71.7 H, Lymph % (Auto) 16.8 L, [place] % (Auto) 9.5, Eos % (Auto) 1.3, Baso % (Auto) 0.4, Absolute Neuts (auto) 7.8 H, Absolute Lymphs (auto) 1.83, Nucleated RBC % 0 11/12/19 07:14: Sodium 139, Potassium 3.1 L, Chloride 111 H, Carbon Dioxide 24.0, Anion Gap 4 L, BUN 10, Creatinine 0.88, Estim Creat Clear Calc 52.98, Est GFR (MDRD) Af Amer 110, Est GFR (MDRD) Non-Af 91, BUN/Creatinine Ratio 11.4, Glucose 90, Calcium 8.5 Current Medications Acetaminophen (Tylenol) 650 mg PO Q6H PRN PRN PRN Reason: Pain Score 1-10/Temp > 100.7 F Albuterol Sulfate (Albuterol Sulfate Hfa) 2 puff IH Q2H PRN PRN PRN Reason: Shortness of Breath/Wheezing Benzonatate (Tessalon Perle) 100 mg PO TID PRN PRN PRN Reason: COUGH Dextrose (D50w Syringe) 0 gm IV X1 PRN; Protocol PRN Reason: Hypoglycemia Enoxaparin Sodium (Lovenox) 30 mg SC BID [facility] Last Admin: 11/11/19 22:09 Dose: 30 mg Documented by: Ergocalciferol (Vitamin D) 50,000 unit PO Q7D@1000 [facility] Last Admin: 11/11/19 11:27 Dose: Not Given Documented by: Folic Acid (Folic Acid) 1 mg PO DAILY@0800 [facility] Stop: 11/13/19 08:01 Last Admin: 11/11/19 11:22 Dose: Not Given Documented by: Glucagon () 1 mg IM .X1 PRN PRN Reason: Hypoglycemia Thiamine HCl 200 mg/ Sodium (Chloride) 52 mls @ 200 mls/hr IV DAILY [facility] Last Infusion: 11/11/19 02:05 Dose: Infused Documented by: Sodium Chloride () 1,000 mls @ 75 mls/hr IV .[id number] [facility] Last Admin: 11/12/19 07:48 Dose: 75 mls/hr Documented by: Ampicillin Sodium/Sulbactam (Sodium 3 gm/ Sodium Chloride) 112 mls @ 150 mls/hr IV 0400,1000,1600,2200 [facility] Last Infusion: 11/12/19 04:39 Dose: Infused Documented by: Sodium Chloride () 250 mls @ 15 mls/hr IV .[id number] PRN PRN Reason: Saline Flush Sodium Chloride () 250 mls @ 15 mls/hr IV .[id number] PRN PRN Reason: Additional IVPB Infusion Labetalol HCl (Trandate) 10 mg IV Q4H PRN PRN PRN Reason: SBP > 160 Last Admin: 11/11/19 21:15 Dose: 10 mg Documented by: Lorazepam (Ativan) 2 mg PO Q2H PRN PRN; Protocol PRN Reason: CIWA score > 8 but <15 Lorazepam (Ativan) 2 mg PO UD PRN; Protocol PRN Reason: CIWA score >/=15. Lorazepam (Ativan) 2 mg IV Q2H PRN PRN; Protocol PRN Reason: CIWA score > 8 but <15 Last Admin: 11/11/19 23:01 Dose: 2 mg Documented by: Lorazepam (Ativan) 2 mg IV UD PRN; Protocol PRN Reason: CIWA score >/=15. Miscellaneous Information (Pocket Chamber) 1 each INHALATION PRN PRN PRN Reason: WITH ALBUTEROL MDI Multivitamins/Minerals (Multivitamin With Minerals (B[facility])) [address] [facility] Last Admin: 11/11/19 11:22 Dose: Not Given Documented by: Nicotine (Nicoderm Cq (Pbkc)) 7 mg TRANSDERM. DAILY [facility] Last Admin: 11/11/19 11:25 Dose: 7 mg Documented by: Nutritional Formula (Lactose Free) (Ensure Clear) 120 ml PO 4X/DAYCM [facility] Last Admin: 11/11/19 21:15 Dose: Not Given Documented by: Ondansetron HCl (Zofran) 4 mg IV Q8H PRN PRN PRN Reason: NAUSEA/VOMITING Sodium Chloride () 10 - 40 ml IV UD PRN PRN Reason: SALINE FLUSH STROKE Vital Signs/Narrative: Vital Signs Pulse Ox 11/12/19 07:50 92 Medical Necessity - Tobacco Use Smoking Status: Current every day smoker Tobacco Use: Cigarettes Assessment/Plan All Active Problems (Last Reviewed 11/11/19 @ 01:[address] Soham Puentes MD) Pneumonia (Acute) Sepsis (Acute) Fall (Acute) Failure to thrive in adult (Acute) Protein-calorie malnutrition, severe (Acute) Benzodiazepine withdrawal (Resolved) Cholelithiasis (Resolved) Closed left hip fracture (Resolved) 1. Sepsis: * 2/2 pneumonia * COVID-19, strep Ag, legionella Ag, respiratory panel negative * supportive mgmt * on amp/sulbactam * ID and pulm consult * elevated D-dimer 2. Pneumonia * suspect aspiration * abx as above. * ST eval pending 3. Dysphagia * modify diet * Speech therapy 4. ANASTACIO * likely prerenal * resolved * continue with NS at 75cc/h for now while NPO 5. 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 Though not pathognomic for neurodegenerative disease (particularly PSP), it is concerning. Could consider outpt referral to movement disorder specialist, but likely only be academic and of low yield given his overall frailty. 6. Vitamin D deficiency * ergocalciferol 7. alcohol abuse * thiamine and folate * lorazepam [facility] protocol. * did receive a dose of lorazepam. * Actively hallucinating, but I do not feel that this from acute alcohol withdrawal, rather his dementia and encephalopathy 8. VTE prophylaxis: LMWH Discussed with the patient's caregiver and friend, Ashlee Brooke who explains that she and her family check on him frequently throughout the day. She states that patient does have frequent falls and has not been eating much. They provide him food and then will come back the next day and he would not of had a bite of it. Is unable to go to the bathroom on his own and they try to use some improvised bed pans. Explained to her that he would likely require I detention facility upon discharge. She states that she would prefer the avenues if possible. I told her that we would need to run things her insurance and so forth but would be in contact with her when the time came. I told her that he would not be medically ready until probably Thursday and at that point time we would have to get authorization through her insurance. Greater than 45 minutes of which greater than 50% of time was discussing with the patient's friend about his condition and eventual plans and current plans. Inpatient E&M: [id number] Subs Hosp L3
[2019-11-12] MEDS: Enoxaparin 30 MG/0.3 ML Syringe SC ×2 (10:31→21:53)
--- NOTE | 2019-11-12 12:04 | CASEMGMT ---
Addendum entered by Zhou Marie 11/12/19 12:17: Declination to Transfer and clinical information faxed to Fiorella @ [facility] Original Note: RAMY CIFUENTES Note: Discussed [facility] with patient in room after introducing role of CM. Patient is oriented to name, mumbles. RAMY CIFUENTES asked if he would like to transfer to the [facility] and patient stated no, they never did anything for me. RN ESAU explained he could stay @ [facility] under his MCR benefits if prefers. Pt stated, I don't want to go anywhere. Pt did sign declination to transfer form after explained. Lanny RUIZN RN ACM
[2019-11-13] VITALS (19 sets, daily range): BP systolic 145–193; BP diastolic 90–112; PULSE 52–74; RESP 16–20; TEMP 36.1–37; O2SAT 91–100
[2019-11-13] MEDS: 0.9% Saline Lock 10 ML Syringe IV ×3 (01:49→08:31)
[2019-11-13] MEDS: LORazepam 2 MG/ML Syringe IV (01:49)
[2019-11-13] MEDS: Labetalol 20 MG/4 ML Vial 10 MG IV ×4 (04:22→22:28)
[2019-11-13 05:50] LABS: Absolute Lymphocyte Count 2.26 X10^3/uL (0.83-4.51); Absolute Neutrophil Count 5.8 X10^3/uL (2.0-7.7); Basophil# 0.04 X10^3/uL; Basophil% 0.4 % (0-1); Eosinophil# 0.31 X10^3/uL; Eosinophils% 3.3 % (0-5); Hematocrit 38.9 % (40-54); Hemoglobin 12.4 g/dL (13.0-16.5); Lymphocyte # 2.26 X10^3/ul (4.0); Lymphocyte % 24.4 % (19-41); Mean Corp Hgb Conc 31.9 g/dL (32-36); Mean Corpuscular Hgb 28.4 pg (27.0-32.0); Mean Platelet Vol. 9.9 fl (6.2-12.0); Monocyte# 0.79 X10^3/uL; Monocyte% 8.5 % (0-10); NRBC Flagged by Analyzer 0 % (0-5); Neutrophil # 5.83 X10^3/uL (2.7-7.7); Neutrophil % 63.1 % (47-70); Platelet Count 297 K/mm3 (150-450); RBC Distribution Width CV 14.2 % (11.6-14.6); RBC Distribution Width SD 46.2 fl (35.1-43.9); Red Blood Count 4.37 M/mm3 (4.6-6.2); White Blood Count 9.3 K/mm3 (4.4-11.0)
[2019-11-13 06:02] LABS: Anion Gap 9 (5-15); BUN 7 mg/dL (7-18); Calcium,Total 8.6 mg/dL (8.5-10.1); Chloride 104 mmol/L (98-107); EST Glomerular Filtration Rate 117 mL/min (>60); Est Glom Filt Rate - Afr Amer 141 mL/min (>60); Estimated Creatinine Clearance 46.62 ml/min; Glucose 71 mg/dL (74-106); Potassium 2.8 mmol/L (3.5-5.1); Sodium Level 138 mmol/L (136-145)
[2019-11-13 08:04] LABS: Magnesium 1.6 mg/dL (1.6-2.6)
[2019-11-13] MEDS: Enoxaparin 30 MG/0.3 ML Syringe SC ×2 (08:24→21:23)
--- NOTE | 2019-11-13 09:32 | NURSING ---
Dr. Gill aware that potassium this morning is only 2.8 and ordered Mg level d/t this. Mg level 1.6 which is wnl.
--- NOTE | 2019-11-13 09:40 | PCM.PN.HOSP ---
Patient Problems: Active and Suspected Problems (Last Reviewed 11/11/19 @ 01:[address] Soham Puentes MD) Pneumonia (Acute) Sepsis (Acute) Fall (Acute) Failure to thrive in adult (Acute) Protein-calorie malnutrition, severe (Acute) Reason for Visit: pneumonia Subjective: Shoot me. Because I'm around all these women. Vitals/I&O's: Vital Signs Temp Pulse Resp BP Pulse Ox 36.1 C L 61 16 168/112 H 91 11/13/19 07:52 11/13/19 07:52 11/13/19 07:52 11/13/19 07:52 11/13/19 08:05 Oxygen Flow Rate (L/min) 1 Oxygen Delivery Method Room Air Weight: 50.1 kg Body Mass Index (BMI) 16.2 Finger Stick Blood Glucose 122 Intake and Output for Last 24 Hours 11/11/19 11/12/19 11/13/19 23:59 23:59 23:59 Intake Total 1755.00 / 1755.00 2456.25 / 2456.25 892.0 / 892.0 Output Total 0 / 0 200 / 700 500 / 500 Balance 1755.00 / 1755.00 2256.25 / 1756.25 392.0 / 392.0 General: No apparent distress, Confused - though much more alert than has been., - - kyphotic. more interactive. making jokes. HEENT: Atraumatic, Normocephalic Neck: No Nodes, Thyroid Normal Size and Texture Lungs: Diminished, - - coarse breath sounds Cardiovascular: Regular rate, Regular Rhythm, Normal S1, Normal S2, No murmurs Abdomen: Bowel Sounds Present, Soft, Non Tender, Non-Distended Extremities: No edema, No Calf Tenderness Musculoskeletal: Cachexia, Muscle Wasting Neurological: - - unable to assess EOM as patient not following commands Psych/Mental Status: Anxious Microbiology Past 72 Hours 11/10/19 22:55 Blood Culture (Wb) - Anticubital Right Blood Culture - Preliminary No growth in 48 hours. 11/10/19 22:50 Blood Culture (Wb) - Left Forearm Blood Culture - Preliminary No growth in 48 hours. 11/10/19 23:55 Mucosa - Nasopharyngeal Respiratory Panel (PCR) - Final 11/10/19 21:19 Urine, Random Streptococcus pneumoniae Antigen (M - Final 11/10/19 21:19 Interface Orders Legionella Antigen - Final Laboratory Results 11/13/19 05:00: WBC 9.3, RBC 4.37 L, Hgb 12.4 L, Hct 38.9 L, MCV 89.0, MCH 28.4, MCHC 31.9 L, RDW Std Deviation 46.2 H, RDW Coeff of Dariela 14.2, Plt Count 297, MPV 9.9, Immature Gran % (Auto) 0.300, Neut % (Auto) 63.1, Lymph % (Auto) 24.4, [place] % (Auto) 8.5, Eos % (Auto) 3.3, Baso % (Auto) 0.4, Absolute Neuts (auto) 5.8, Absolute Lymphs (auto) 2.26, Nucleated RBC % 0 11/13/19 05:00: Sodium 138, Potassium 2.8 L, Chloride 104, Carbon Dioxide 25.0, Anion Gap 9, BUN 7, Creatinine 0.70, Estim Creat Clear Calc 46.62, Est GFR (MDRD) Af Amer 141, Est GFR (MDRD) Non-Af 117, BUN/Creatinine Ratio 10.0, Glucose 71 L, Calcium 8.6 11/13/19 05:00: Magnesium 1.6 Current Medications Acetaminophen (Tylenol) 650 mg PO Q6H PRN PRN PRN Reason: Pain Score 1-10/Temp > 100.7 F Albuterol Sulfate (Albuterol Sulfate Hfa) 2 puff IH Q2H PRN PRN PRN Reason: Shortness of Breath/Wheezing Benzonatate (Tessalon Perle) 100 mg PO TID PRN PRN PRN Reason: COUGH Dextrose (D50w Syringe) 0 gm IV X1 PRN; Protocol PRN Reason: Hypoglycemia Enoxaparin Sodium (Lovenox) 30 mg SC BID [facility] Last Admin: 11/13/19 08:24 Dose: 30 mg Documented by: Ergocalciferol (Vitamin D) 50,000 unit PO Q7D@1000 [facility] Last Admin: 11/11/19 11:27 Dose: Not Given Documented by: Glucagon () 1 mg IM .X1 PRN PRN Reason: Hypoglycemia Thiamine HCl 200 mg/ Sodium (Chloride) 52 mls @ 200 mls/hr IV DAILY [facility] Last Infusion: 11/12/19 11:04 Dose: Infused Documented by: Sodium Chloride () 1,000 mls @ 75 mls/hr IV .[id number] [facility] Last Infusion: 11/13/19 08:14 Dose: 0 mls/hr Documented by: Ampicillin Sodium/Sulbactam (Sodium 3 gm/ Sodium Chloride) 112 mls @ 150 mls/hr IV 0400,1000,1600,2200 [facility] Last Admin: 11/13/19 08:13 Dose: 150 mls/hr Documented by: Sodium Chloride () 250 mls @ 15 mls/hr IV .[id number] PRN PRN Reason: Saline Flush Sodium Chloride () 250 mls @ 15 mls/hr IV .[id number] PRN PRN Reason: Additional IVPB Infusion Magnesium Sulfate 2 gm/ Sodium (Chloride) 104 mls @ 52 mls/hr IV X1 ONE Stop: 11/13/19 11:38 Potassium Chloride () 10 meq in 100 mls @ 100 mls/hr IV BOLUS Q1H [facility] Stop: 11/13/19 13:44 Labetalol HCl (Trandate) 10 mg IV Q4H PRN PRN PRN Reason: SBP > 160 Last Admin: 11/13/19 08:31 Dose: 10 mg Documented by: Lorazepam (Ativan) 2 mg PO Q2H PRN PRN; Protocol PRN Reason: CIWA score > 8 but <15 Lorazepam (Ativan) 2 mg PO UD PRN; Protocol PRN Reason: CIWA score >/=15. Lorazepam (Ativan) 2 mg IV Q2H PRN PRN; Protocol PRN Reason: CIWA score > 8 but <15 Last Admin: 11/13/19 01:49 Dose: 2 mg Documented by: Lorazepam (Ativan) 2 mg IV UD PRN; Protocol PRN Reason: CIWA score >/=15. Miscellaneous Information (Pocket Chamber) 1 each INHALATION PRN PRN PRN Reason: WITH ALBUTEROL MDI Multivitamins/Minerals ([facility]ivitamin With Minerals (Bkc)) [facility] Last Admin: 11/13/19 08:24 Dose: Not Given Documented by: Nicotine (Nicoderm Cq (Pbkc)) 7 mg TRANSDERM. DAILY [facility] Last Admin: 11/13/19 08:25 Dose: 7 mg Documented by: Nutritional Formula (Lactose Free) (Ensure Clear) 120 ml PO 4X/DAYCM [facility] Last Admin: 11/13/19 08:01 Dose: Not Given Documented by: Ondansetron HCl (Zofran) 4 mg IV Q8H PRN PRN PRN Reason: NAUSEA/VOMITING Sodium Chloride () 10 - 40 ml IV UD PRN PRN Reason: SALINE FLUSH Last Admin: 11/13/19 08:31 Dose: 10 ml Documented by: STROKE Vital Signs/Narrative: Vital Signs Temp Pulse Resp BP Pulse Ox 11/13/19 08:05 91 11/13/19 07:52 36.1 C L 61 16 168/112 H 91 11/13/19 07:45 91 11/13/19 07:30 56 L Medical Necessity - Tobacco Use Smoking Status: Current every day smoker Tobacco Use: Cigarettes Assessment/Plan All Active Problems (Last Reviewed 11/11/19 @ 01:[address] Soham Puentes MD) Pneumonia (Acute) Sepsis (Acute) Fall (Acute) Failure to thrive in adult (Acute) Protein-calorie malnutrition, severe (Acute) Benzodiazepine withdrawal (Resolved) Cholelithiasis (Resolved) Closed left hip fracture (Resolved) 1. Sepsis: 2/2 pneumonia COVID-19, strep Ag, legionella Ag, respiratory panel negative supportive mgmt on amp/sulbactam ID and pulm consult elevated D-dimer 2. Pneumonia suspect aspiration abx as above. speech therapy on amp/sulbactam since 11/10 3. Dysphagia modify diet Speech therapy noted wet coughing and recommends NPO. May need to consider alternate forms of feeding v comfort feeds. 4. ANASTACIO likely prerenal resolved continue with NS at 75cc/h for now while NPO 5. 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 Though not pathognomic for neurodegenerative disease (particularly PSP), it is concerning. Could consider outpt referral to movement disorder specialist, but likely only be academic and of low yield given his overall frailty. 6. Hypokalemia: replace K and Mag 7. Vitamin D deficiency ergocalciferol 8. alcohol abuse doubt going through acute alcohol withdrawal lorazepam [facility] protocol. did receive a dose of lorazepam. Actively hallucinating, but I do not feel that this from acute alcohol withdrawal, rather his dementia and encephalopathy 9. VTE prophylaxis: LMWH 11/11: Discussed with the patient's caregiver and friend, Ashlee Brooke, who explains that she and her family check on him frequently throughout the day. She states that patient does have frequent falls and has not been eating much. They provide him food and then will come back the next day and he would not of had a bite of it. Is unable to go to the bathroom on his own and they try to use some improvised bed pans. Explained to her that he would likely require I intermediate facility upon discharge. She states that she would prefer the avenues if possible. I told her that we would need to run things her insurance and so forth but would be in contact with her when the time came. I told her that he would not be medically ready until probably Thursday and at that point time we would have to get authorization through her insurance. Inpatient E&M: 18131 Subs Hosp L3
[2019-11-13] MEDS: Potassium Chloride 10mEq/100mL 10 MEQ/100 ML IV.SOLN. 100 MEQ IV BOLUS ×4 (12:18→15:38)
[2019-11-13] MEDS: 0.9% Normal Saline 1,000 ML 75 ML IV (13:55)
[2019-11-13] MEDS: hydrALAZINE 20 MG/ML Vial 5 MG IV (21:23)
--- NOTE | 2019-11-13 23:08 | PCM.PN.BLA ---
Progress Note Blood pressure remains uncontrolled with PRN labetalol. Added PRN hydralazine. Blood pressure remains uncontrolled. Patient is n.p.o. because he failed speech eval. Clonidine patch ordered. STROKE Vital Signs/Narrative: Vital Signs Temp Pulse Resp BP BP Pulse Ox 11/13/19 22:55 61 182/111 H 11/13/19 22:12 97.9 F 67 18 178/100 H 95 11/13/19 21:23 57 L 193/103 H 11/13/19 20:37 97.5 F L 57 L 18 193/103 H 97 11/13/19 20:00 52 L
[2019-11-13] MEDS: cloNIDine HCl 0.1 MG Patch TRANSDERM. (23:20)
[2019-11-14] VITALS (14 sets, daily range): BP systolic 138–185; BP diastolic 78–101; PULSE 49–79; RESP 18; TEMP 36.8–37.2; O2SAT 92–98
[2019-11-14] MEDS: hydrALAZINE 20 MG/ML Vial 5 MG IV (03:43)
[2019-11-14] MEDS: 0.9% Normal Saline 1,000 ML 75 ML IV (05:22)
[2019-11-14 05:49] LABS: Absolute Lymphocyte Count 1.91 X10^3/uL (0.83-4.51); Absolute Neutrophil Count 5.1 X10^3/uL (2.0-7.7); Basophil# 0.04 X10^3/uL; Basophil% 0.5 % (0-1); Eosinophil# 0.32 X10^3/uL; Hematocrit 37.8 % (40-54); Lymphocyte # 1.91 X10^3/ul (4.0); Lymphocyte % 23.8 % (19-41); Mean Corp Hgb Conc 31.7 g/dL (32-36); Mean Corpuscular Hgb 28.5 pg (27.0-32.0); Mean Corpuscular Volume 89.8 fL (80-94); Mean Platelet Vol. 9.8 fl (6.2-12.0); Monocyte# 0.68 X10^3/uL; Monocyte% 8.5 % (0-10); NRBC Flagged by Analyzer 0 % (0-5); Neutrophil # 5.07 X10^3/uL (2.7-7.7); Platelet Count 311 K/mm3 (150-450); RBC Distribution Width CV 14.6 % (11.6-14.6); RBC Distribution Width SD 47.1 fl (35.1-43.9); Red Blood Count 4.21 M/mm3 (4.6-6.2)
[2019-11-14 06:02] LABS: Magnesium 1.8 mg/dL (1.6-2.6)
--- NOTE | 2019-11-14 09:48 | PCM.PN.HOSP ---
Patient Problems: Active and Suspected Problems (Last Reviewed 11/11/19 @ 01:[address] Soham Puentes MD) Pneumonia (Acute) Sepsis (Acute) Fall (Acute) Failure to thrive in adult (Acute) Protein-calorie malnutrition, severe (Acute) Vitals/I&O's: Vital Signs Temp Pulse Resp BP Pulse Ox 98.6 F 69 18 138/94 H 98 11/14/19 09:07 11/14/19 09:07 11/14/19 09:07 11/14/19 09:07 11/14/19 09:07 Oxygen Flow Rate (L/min) 2 Oxygen Delivery Method Room Air Weight: 110 lb 7.225 oz Body Mass Index (BMI) 16.2 Finger Stick Blood Glucose 122 Intake and Output for Last 24 Hours 11/12/19 11/13/19 11/14/19 23:59 23:59 23:59 Intake Total 2456.25 / 2456.25 2433.25 / 2433.25 589.5 / 589.5 Output Total 200 / 700 875 / 875 950 / 950 Balance 2256.25 / 1756.25 1558.25 / 1558.25 -360.5 / -360.5 Microbiology Past 72 Hours 11/10/19 22:55 Blood Culture (Wb) - Anticubital Right Blood Culture - Preliminary No growth in 48 hours. 11/10/19 22:50 Blood Culture (Wb) - Left Forearm Blood Culture - Preliminary No growth in 48 hours. Laboratory Results 11/14/19 05:20: WBC 8.0, RBC 4.21 L, Hgb 12.0 L, Hct 37.8 L, MCV 89.8, MCH 28.5, MCHC 31.7 L, RDW Std Deviation 47.1 H, RDW Coeff of Dariela 14.6, Plt Count 311, MPV 9.8, Immature Gran % (Auto) 0.200, Neut % (Auto) 63.0, Lymph % (Auto) 23.8, [place] % (Auto) 8.5, Eos % (Auto) 4.0, Baso % (Auto) 0.5, Absolute Neuts (auto) 5.1, Absolute Lymphs (auto) 1.91, Nucleated RBC % 0 11/14/19 05:20: Magnesium 1.8 Current Medications Acetaminophen (Tylenol) 650 mg PO Q6H PRN PRN PRN Reason: Pain Score 1-10/Temp > 100.7 F Albuterol Sulfate (Albuterol Sulfate Hfa) 2 puff IH Q2H PRN PRN PRN Reason: Shortness of Breath/Wheezing Benzonatate (Tessalon Perle) 100 mg PO TID PRN PRN PRN Reason: COUGH Clonidine HCl (Catapres-Tts1) 0.1 mg TRANSDERM. Q7D [facility] Last Admin: 11/13/19 23:20 Dose: 0.1 mg Documented by: Dextrose (D50w Syringe) 0 gm IV X1 PRN; Protocol PRN Reason: Hypoglycemia Enoxaparin Sodium (Lovenox) 30 mg SC BID [facility] Last Admin: 11/13/19 21:23 Dose: 30 mg Documented by: Ergocalciferol (Vitamin D) 50,000 unit PO Q7D@1000 [facility] Last Admin: 11/11/19 11:27 Dose: Not Given Documented by: Glucagon () 1 mg IM .X1 PRN PRN Reason: Hypoglycemia Hydralazine HCl (Apresoline Iv) 5 mg IV Q4H PRN PRN PRN Reason: SBP > 160 Last Admin: 11/14/19 03:43 Dose: 5 mg Documented by: Sodium Chloride () 1,000 mls @ 75 mls/hr IV .[id number] [facility] Last Admin: 11/14/19 05:22 Dose: 75 mls/hr Documented by: Ampicillin Sodium/Sulbactam (Sodium 3 gm/ Sodium Chloride) 112 mls @ 150 mls/hr IV 0400,1000,1600,2200 [facility] Last Infusion: 11/14/19 04:30 Dose: Infused Documented by: Sodium Chloride () 250 mls @ 15 mls/hr IV .[id number] PRN PRN Reason: Saline Flush Sodium Chloride () 250 mls @ 15 mls/hr IV .[id number] PRN PRN Reason: Additional IVPB Infusion Labetalol HCl (Trandate) 10 mg IV Q4H PRN PRN PRN Reason: SBP > 160 Last Admin: 11/13/19 22:28 Dose: 10 mg Documented by: Miscellaneous Information (Pocket Chamber) 1 each INHALATION PRN PRN PRN Reason: WITH ALBUTEROL MDI Multivitamins/Minerals (Multivitamin With Minerals (Bkc)) 1 tablet PO DAILYCM [facility] Last Admin: 11/14/19 09:12 Dose: Not Given Documented by: Nicotine (Nicoderm Cq (Pbkc)) 7 mg TRANSDERM. DAILY [facility] Last Admin: 11/13/19 08:25 Dose: 7 mg Documented by: Nutritional Formula (Lactose Free) (Ensure Clear) 120 ml PO 4X/DAYCM [facility] Last Admin: 11/14/19 09:12 Dose: Not Given Documented by: Ondansetron HCl (Zofran) 4 mg IV Q8H PRN PRN PRN Reason: NAUSEA/VOMITING Sodium Chloride () 10 - 40 ml IV UD PRN PRN Reason: SALINE FLUSH Last Admin: 11/13/19 08:31 Dose: 10 ml Documented by: STROKE Vital Signs/Narrative: Vital Signs Temp Pulse Resp BP Pulse Ox 11/14/19 09:07 98.6 F 69 18 138/94 H 98 11/14/19 09:00 18 Medical Necessity - Tobacco Use Smoking Status: Current every day smoker Tobacco Use: Cigarettes Assessment/Plan All Active Problems (Last Reviewed 11/11/19 @ 01:[address] Soham Puentes MD) Pneumonia (Acute) Sepsis (Acute) Fall (Acute) Failure to thrive in adult (Acute) Protein-calorie malnutrition, severe (Acute) Benzodiazepine withdrawal (Resolved) Cholelithiasis (Resolved) Closed left hip fracture (Resolved) 1. Sepsis: 2/2 pneumonia COVID-19, strep Ag, legionella Ag, respiratory panel negative supportive mgmt on amp/sulbactam ID and pulm consult elevated D-dimer 2. Pneumonia suspect aspiration abx as above. speech therapy on amp/sulbactam since 11/10 3. Dysphagia modify diet Speech therapy noted wet coughing and recommends NPO. May need to consider alternate forms of feeding v comfort feeds. 4. ANASTACIO likely prerenal resolved continue with NS at 75cc/h for now while NPO 5. 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 Though not pathognomic for neurodegenerative disease (particularly PSP), it is concerning. Could consider outpt referral to movement disorder specialist, but likely only be academic and of low yield given his overall frailty. 6. Hypokalemia: replace K and Mag 7. Vitamin D deficiency ergocalciferol 8. alcohol abuse doubt going through acute alcohol withdrawal lorazepam [facility] protocol. did receive a dose of lorazepam. Actively hallucinating, but I do not feel that this from acute alcohol withdrawal, rather his dementia and encephalopathy 9. VTE prophylaxis: LMWH 11/11: Discussed with the patient's caregiver and friend, Ashlee Brooke, who explains that she and her family check on him frequently throughout the day. She states that patient does have frequent falls and has not been eating much. They provide him food and then will come back the next day and he would not of had a bite of it. Is unable to go to the bathroom on his own and they try to use some improvised bed pans. Explained to her that he would likely require I [facility]cc facility upon discharge. She states that she would prefer the avenues if possible. I told her that we would need to run things her insurance and so forth but would be in contact with her when the time came. I told her that he would not be medically ready until probably Thursday and at that point time we would have to get authorization through her insurance.
--- NOTE | 2019-11-14 09:55 | CASEMGMT ---
Addendum entered by Ml Emanuel 11/14/19 14:10: Pt is able to discharge to TCU once speech evaluates pt. SW will speak with pt again after speech evaluates pt. Addendum entered by Ml Emanuel 11/14/19 11:46: SW received message from Micheline in TCU stating TCU is able to accept pt, does have a bed available today if pt is medically ready for discharge. SW updated physician. Pt is medically ready for discharge once speech evaluates pt. SW placed a call to Micheline in TCU and left message that pt should be discharged to TCU today. Original Note: Social Work Assessment Referral Date: 11/11/2019 Date of Assessment: 11/14/2019 Reason for consult: SNF placement/neglect Informant: SW Personal Status: SW reviewed chart. Pt appears to be more alert and orientated now. SW in to speak with pt. Pt state that he lives with his cat in an apartment that is all one story. Pt states it is on [address], [place] [address]. Pt states that he was having some falls at home, but I am doing the same here as I was doing at home. Pt denied any DME at home. Pt states PCP is a female in [place]. SW reviewed demographics. Pt's PCP is Dr. Zapien. Pharmacy is [facility]. SW asked pt about caregiver Ashlee. Pt confirms that Ashlee is his neighbor and she helps him. Pt states Ashlee checks in daily. Substance Abuse Hx: Pt states he used to drink alcohol but states he has been sober for 6 months. Pt states he still smokes cigarettes. Mental Health Hx: Pt states that he has anxiety and depression and he takes Trazodone and Wellbutrin. HHC: Has had [facility] in the past SNF: [facility] SW updated pt that per physician's note, Ashlee thinks that pt needs SNF at discharge. Pt states well that's none of her business. SW explained that at this time it is taking two people to get pt up. Pt states I am doing the same thing here as I was at home. SW asked pt if he was able to get up by himself at home and pt states he was. SW explained well then at this time, he is not back to his baseline as it is taking two people to get him up. Pt states I am not going to a group home. Pt then states I am thirsty I need something to drink. SW explained that this worker thinks pt is NPO because he needs another speech evaluation. SW asked pt about going back to TCU for short term therapy but also states that this worker would need to check on bed availability. Pt states well if I get water, I would go to TCU. SW placed a call to Micheline in TCU and left message regarding referral. Plan: SHIRA Emanuel MERCH[employer]ISE COLLECTOR, CREATIVE ART DIRECTOR
[2019-11-14] MEDS: Enoxaparin 30 MG/0.3 ML Syringe SC (10:12)
--- NOTE | 2019-11-14 11:46 | PCM.TXEXTCAR ---
- Diet Pur?ed diet with honey thick liquid on supervision with verbal cues. - Routine Orders/Code Status Suppository Type: Dulcolax 10mg Suppository Frequency: Daily PRN Code Status: Full Code - Therapies Weight Bearing: Weight bearing as tolerated Extremity Affected:: Bilateral Lower Physical Therapy: Eval and Treat Occupational Therapy: Eval and Treat Speech Therapy: Eval and Treat - Allergies/Procedures Done in Hospital Allergies/Adverse Reactions: Allergies bupropion HCl [From Wellbutrin] Allergy (Verified 11/10/19 18:05) SHAKING quetiapine fumarate [From Seroquel] Allergy (Verified 11/10/19 18:05) Unknown trazodone Adverse Reaction (Verified 11/10/19 18:05) SHAKING - Type of Care/Length of Stay Estimated LOS: Convalescent Care Less Than 30 days Type of Care Needed: Skilled Rehab Potential: Good Prognosis: Good - Additional Orders/Day of Discharge Day of Discharge: 11/14/19 - Dietary and Speech Recommendations Dietitian Recommendations/Changes: Rec continue liberal Regular diet w/ ONS at meals and medpass d/t s/s of malnutrition. Rec consider appetite stimulant d/t hx of no appetite and poor po intake. - Follow Up Care Primary Care Physician: Jhonatan Zapien MD [Primary Care Provider] - Please follow up with your Primary Care Physician in: in 2 weeks Please Follow Up With: Sergo Chaudhari MD When: aspiration pneumonia
--- NOTE | 2019-11-14 13:48 | DS.PCM_ITS ---
Discharge Date and Diagnosis - Problem List Patient Problems: Active and Suspected Problems (Last Reviewed 11/11/19 @ 01:[address] Soham Puentes MD) Pneumonia (Acute) Sepsis (Acute) Fall (Acute) Failure to thrive in adult (Acute) Protein-calorie malnutrition, severe (Acute) Date of Admission: 11/10/19 Date of Discharge: 11/14/19 - Primary Discharge Diagnosis Acute Problems: Active Problems (Last Reviewed 11/11/19 @ 01:[address] Soham Puentes MD) Aspiration pneumonia (Acute) Sepsis (Acute) Fall (Acute) Failure to thrive in adult (Acute) Protein-calorie malnutrition, severe (Acute) - Secondary Discharge Diagnosis Chronic Problems: Chronic Problems (Last Reviewed 11/11/19 @ 01:[address] Soham Puentes MD) Debility (Chronic) Anxiety (Chronic) Dizziness (Chronic) History of kidney stones (Chronic) IBS (irritable bowel syndrome) (Chronic) GERD (gastroesophageal reflux disease) (Chronic) Depression (Chronic) Anemia (Chronic) Hypertension (Chronic) Chronic obstructive pulmonary disease (COPD) (Chronic) Wernicke encephalopathy (Chronic) Alcohol abuse (Chronic) Seizure disorder (Chronic) Tobacco abuse (Chronic) Hospital Course and Treatment Operations: None Summary of Care Provided: The patient is a 73 year old M with history of chronic alcohol use disorder, hypertension admitted with fall, right shoulder bruise, leukocytosis, tachypnea and chest x-ray finding of bilateral infiltrate consistent with sepsis most likely secondary to aspiration pneumonia. 1. Sepsis with bilateral pneumonia mostly secondary to aspiration pneumonia * COVID-19, strep Ag, legionella Ag, respiratory panel negative * supportive mgmt * on amp/sulbactam * ID and pulm consult * elevated D-dimer 2. Bilateral pneumonia * suspect aspiration * speech therapy * on amp/sulbactam since 11/10 * Discharged on Augmentin for total of 7 more tablets. 3. Dysphagia * Speech therapy to further follow. On modified dysphagia diet. Does not want to feed. 4. ANASTACIO * likely prerenal * resolved 5. 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 Though not pathognomic for neurodegenerative disease (particularly PSP), it is concerning. Could consider outpt referral to movement disorder specialist, but likely only be academic and of low yield given his overall frailty. 6. Hypokalemia: * Electrolytes are monitored and replaced. 7. Vitamin D deficiency * ergocalciferol 8. alcohol abuse * No acute withdrawal. * lorazepam [facility] protocol. * 9. VTE prophylaxis: LMWH Patient also has severe protein calorie malnutrition with subcutaneous loss of fat and muscle atrophy in extremities. Discharge medication reconciliation done. Discharge follow-up instructions completed. Discharge process discussed with the patient and all questions were answered to patient's satisfaction. Patient is being discharged to TCU. Speech therapist to further follow and if needed modified barium swallow although patient does not want to go for tube feed. On pur?ed diet with nectar thick liquid. Total time spent, exact 35 minutes on discharge meds reconciliation, examination, coordination of care with nurses and ancillary staff, review of imaging and blood test and discussion with the patient on follow-up instructions Patient Problems: Active and Suspected Problems (Last Reviewed 11/11/19 @ 01:[address] Soham Puentes MD) Pneumonia (Acute) Sepsis (Acute) Fall (Acute) Failure to thrive in adult (Acute) Protein-calorie malnutrition, severe (Acute) Subjective: Seen and examined. Patient admitted with sepsis secondary to pneumonia. COVID-19 PCR and other pneumonia work-up including respiratory panel and urinary antigens are negative. On Unasyn. Patient was made n.p.o. for dysphagia and possible aspiration as cause of pneumonia Patient does not want to go further evaluation for dysphagia does not want to feeding but more pleasure feeding. 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 In the morning blood pressure is controlled 138/78. Physical exam General: Alert, Oriented x3, Cooperative HEENT: Atraumatic, PERRLA, EOMI, Normocephalic Oral: No Gingival or Mucosal Lesions/ Ulcerations Neck: Supple, No JVD, Negative Carotid Bruits Lungs: Air entry diminished in bilateral lung bases. No crepitation/rhonchi Cardiovascular: Regular rate, Regular Rhythm, Normal S1, Normal S2, No murmurs Abdomen: Bowel Sounds Present, Soft, Non Tender, Non-Distended : No renal angle tenderness. No suprapubic tenderness. Extremities: No edema, Capillary Refill Less than 3 Seconds Skin: No rashes, No breakdown Musculoskeletal: No Tenderness to Palpation of Joints or Extremities Neurological: Cranial nerves II-XII grossly intact, Deep Tendon Reflexes 2+/4 and Symmetrical, Neuro grossly intact Psych/Mental Status: Normal Affect, Appropriate. - Physical Exam Vitals/I&O's: Vital Signs Temp Pulse Resp BP Pulse Ox 98.6 F 69 18 138/94 H 98 11/14/19 09:07 11/14/19 09:07 11/14/19 09:07 11/14/19 09:07 11/14/19 09:07 Oxygen Flow Rate (L/min) 2 Oxygen Delivery Method Room Air Weight: 110 lb 7.225 oz Body Mass Index (BMI) 16.2 Finger Stick Blood Glucose 122 Intake and Output for Last 24 Hours 11/12/19 11/13/19 11/14/19 23:59 23:59 23:59 Intake Total 2456.25 / 2456.25 2433.25 / 2433.25 1067.75 / 1067.75 Output Total 200 / 700 875 / 875 950 / 950 Balance 2256.25 / 1756.25 1558.25 / 1558.25 117.75 / 117.75 Microbiology Past 72 Hours 11/10/19 22:55 Blood Culture (Wb) - Anticubital Right Blood Culture - Preliminary No growth in 48 hours. 11/10/19 22:50 Blood Culture (Wb) - Left Forearm Blood Culture - Preliminary No growth in 48 hours. Laboratory Results 11/14/19 05:20: WBC 8.0, RBC 4.21 L, Hgb 12.0 L, Hct 37.8 L, MCV 89.8, MCH 28.5, MCHC 31.7 L, RDW Std Deviation 47.1 H, RDW Coeff of Dariela 14.6, Plt Count 311, MPV 9.8, Immature Gran % (Auto) 0.200, Neut % (Auto) 63.0, Lymph % (Auto) 23.8, [place] % (Auto) 8.5, Eos % (Auto) 4.0, Baso % (Auto) 0.5, Absolute Neuts (auto) 5.1, Absolute Lymphs (auto) 1.91, Nucleated RBC % 0 11/14/19 05:20: Magnesium 1.8 Current Medications Acetaminophen (Tylenol) 650 mg PO Q6H PRN PRN PRN Reason: Pain Score 1-10/Temp > 100.7 F Albuterol Sulfate (Albuterol Sulfate Hfa) 2 puff IH Q2H PRN PRN PRN Reason: Shortness of Breath/Wheezing Benzonatate (Tessalon Perle) 100 mg PO TID PRN PRN PRN Reason: COUGH Clonidine HCl (Catapres-Tts1) 0.1 mg TRANSDERM. Q7D COUNTS INCLUDE 234 BEDS AT THE [facility] Last Admin: 11/13/19 23:20 Dose: 0.1 mg Documented by: Dextrose (D50w Syringe) 0 gm IV X1 PRN; Protocol PRN Reason: Hypoglycemia Enoxaparin Sodium (Lovenox) 30 mg SC BID COUNTS INCLUDE 234 BEDS AT THE [facility] Last Admin: 11/14/19 10:12 Dose: 30 mg Documented by: Ergocalciferol (Vitamin D) 50,000 unit PO Q7D@1000 COUNTS INCLUDE 234 BEDS AT THE [facility] Last Admin: 11/11/19 11:27 Dose: Not Given Documented by: Glucagon () 1 mg IM .X1 PRN PRN Reason: Hypoglycemia Hydralazine HCl (Apresoline Iv) 5 mg IV Q4H PRN PRN PRN Reason: SBP > 160 Last Admin: 11/14/19 03:43 Dose: 5 mg Documented by: Sodium Chloride () 1,000 mls @ 75 mls/hr IV .[id number] COUNTS INCLUDE 234 BEDS AT THE [facility] Last Infusion: 11/14/19 11:00 Dose: 75 mls/hr Documented by: Ampicillin Sodium/Sulbactam (Sodium 3 gm/ Sodium Chloride) 112 mls @ 150 mls/hr IV 0400,1000,1600,2200 COUNTS INCLUDE 234 BEDS AT THE [facility] Last Infusion: 11/14/19 10:59 Dose: Infused Documented by: Sodium Chloride () 250 mls @ 15 mls/hr IV .[id number] PRN PRN Reason: Saline Flush Sodium Chloride () 250 mls @ 15 mls/hr IV .[id number] PRN PRN Reason: Additional IVPB Infusion Labetalol HCl (Trandate) 10 mg IV Q4H PRN PRN PRN Reason: SBP > 160 Last Admin: 11/13/19 22:28 Dose: 10 mg Documented by: Miscellaneous Information (Pocket Chamber) 1 each INHALATION PRN PRN PRN Reason: WITH ALBUTEROL MDI Multivitamins/Minerals ([facility]it[facility] With [facility] ([facility])) [facility] Admin: 11/14/19 09:12 Dose: Not Given Documented by: Nicotine (Nicoderm Cq (Pbkc)) 7 mg TRANSDERM. DAILY COUNTS INCLUDE 234 BEDS AT THE [facility] Last Admin: 11/14/19 10:12 Dose: 7 mg Documented by: Nutritional Formula (Lactose Free) (Ensure Clear) 120 ml PO 4X/DAYCM COUNTS INCLUDE 234 BEDS AT THE [facility] Last Admin: 11/14/19 11:37 Dose: Not Given Documented by: Ondansetron HCl (Zofran) 4 mg IV Q8H PRN PRN PRN Reason: NAUSEA/VOMITING Sodium Chloride () 10 - 40 ml IV UD PRN PRN Reason: SALINE FLUSH Last Admin: 11/13/19 08:31 Dose: 10 ml Documented by: Home Medications: Medications to take at Discharge Buspirone HCl 10 mg PO BID 08/10/19 Lamotrigine [Lamictal] 200 mg PO DAILY 08/10/19 Omeprazole 40 mg PO DAILY 08/10/19 Trihexyphenidyl HCl 2 mg PO BID 08/10/19 fluoxetine 40 mg capsule 40 mg PO DAILY #90 cap 09/21/19 lisinopril 10 mg tablet 10 mg PO DAILY #30 tab 10/12/19 Acetaminophen [Tylenol] 1,000 mg PO Q8 PRN 11/11/19 Denosumab [Prolia] 60 mg SUBCUT [id number] 11/11/19 Melatonin 3 mg PO QHS 11/11/19 Multivitamin 1 ea PO 11/11/19 Tamsulosin HCl 0.4 mg PO DAILY@1730 11/11/19 Amlodipine Besylate [Norvasc] 5 mg PO DAILY #30 tab 11/14/19 Amoxicillin/Potassium Clav [Augmentin 875-125 Tablet] 1 ea PO BID #7 tab 11/14/19 Benzonatate [Tessalon Perle] 100 mg PO TID PRN PRN cap 11/14/19 Nicotine [Nicoderm Cq] 7 mg TRANSDERM. DAILY patch 11/14/19 Risperidone [Risperdal] 1 mg PO QHS #10 tab 11/14/19 Following Prescrptions Were Given to Patient: Amoxicillin/Potassium Clav [Augmentin 875-125 Tablet] 1 ea PO BID #7 tab Transmission Status: Received by [facility] Risperidone [Risperdal] 1 mg PO QHS #10 tab Primary Care Physician: Jhonatan Zapien MD [Primary Care Provider] - Please follow up with your Primary Care Physician in: in 2 weeks Please Follow Up With: Sergo Chaudhari MD When: aspiration pneumonia Medical Necessity - Tobacco Use Smoking Status: Current every day smoker Tobacco Use: Cigarettes Meaningful Use Info Meaningful Use Diagnoses (Choose all that apply): None applicable Inpatient E&M: 84399 Disch Hosp
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
--- NOTE | 2019-11-14 16:09 | PN.ID_ITS ---
Patient Problems: Active and Suspected Problems (Last Reviewed 11/11/19 @ 01:[address] Soham Puentes MD) Pneumonia (Acute) Sepsis (Acute) Fall (Acute) Failure to thrive in adult (Acute) Protein-calorie malnutrition, severe (Acute) Subjective: Feeling better, no fever, no n/v/d, no SOB - Physical Exam Vitals/I&O's: Vital Signs Temp Pulse Resp BP Pulse Ox 98.6 F 69 18 138/94 H 92 11/14/19 09:07 11/14/19 09:07 11/14/19 09:07 11/14/19 09:07 11/14/19 13:50 Oxygen Flow Rate (L/min) 2 Oxygen Delivery Method Room Air Weight: 50.1 kg Body Mass Index (BMI) 16.2 Finger Stick Blood Glucose 122 Intake and Output for Last 24 Hours 11/12/19 11/13/19 11/14/19 23:59 23:59 23:59 Intake Total 2456.25 / 2456.25 2433.25 / 2433.25 1067.75 / 1067.75 Output Total 200 / 700 875 / 875 1600 / 1600 Balance 2256.25 / 1756.25 1558.25 / 1558.25 -532.25 / -532.25 General: Cooperative, No apparent distress Lungs: Clear to auscultation, Normal air movement Cardiovascular: Regular rate, Regular Rhythm Abdomen: Soft, Non Tender, Non-Distended Skin: No rashes Microbiology Past 72 Hours 11/10/19 22:55 Blood Culture (Wb) - Anticubital Right Blood Culture - Preliminary No growth in 48 hours. 11/10/19 22:50 Blood Culture (Wb) - Left Forearm Blood Culture - Preliminary No growth in 48 hours. Laboratory Results 11/14/19 05:20: WBC 8.0, RBC 4.21 L, Hgb 12.0 L, Hct 37.8 L, MCV 89.8, MCH 28.5, MCHC 31.7 L, RDW Std Deviation 47.1 H, RDW Coeff of Dariela 14.6, Plt Count 311, MPV 9.8, Immature Gran % (Auto) 0.200, Neut % (Auto) 63.0, Lymph % (Auto) 23.8, [place] % (Auto) 8.5, Eos % (Auto) 4.0, Baso % (Auto) 0.5, Absolute Neuts (auto) 5.1, Absolute Lymphs (auto) 1.91, Nucleated RBC % 0 11/14/19 05:20: Magnesium 1.8 Current Medications Acetaminophen (Tylenol) 650 mg PO Q6H PRN PRN PRN Reason: Pain Score 1-10/Temp > 100.7 F Albuterol Sulfate (Albuterol Sulfate Hfa) 2 puff IH Q2H PRN PRN PRN Reason: Shortness of Breath/Wheezing Benzonatate (Tessalon Perle) 100 mg PO TID PRN PRN PRN Reason: COUGH Clonidine HCl (Catapres-Tts1) 0.1 mg TRANSDERM. Q7D [facility] Last Admin: 11/13/19 23:20 Dose: 0.1 mg Documented by: Dextrose (D50w Syringe) 0 gm IV X1 PRN; Protocol PRN Reason: Hypoglycemia Enoxaparin Sodium (Lovenox) 30 mg SC BID [facility] Last Admin: 11/14/19 10:12 Dose: 30 mg Documented by: Ergocalciferol (Vitamin D) 50,000 unit PO Q7D@1000 [facility] Last Admin: 11/11/19 11:27 Dose: Not Given Documented by: Glucagon () 1 mg IM .X1 PRN PRN Reason: Hypoglycemia Hydralazine HCl (Apresoline Iv) 5 mg IV Q4H PRN PRN PRN Reason: SBP > 160 Last Admin: 11/14/19 03:43 Dose: 5 mg Documented by: Sodium Chloride () 1,000 mls @ 75 mls/hr IV .[id number] [facility] Last Infusion: 11/14/19 11:00 Dose: 75 mls/hr Documented by: Ampicillin Sodium/Sulbactam (Sodium 3 gm/ Sodium Chloride) 112 mls @ 150 mls/hr IV 0400,1000,1600,2200 [facility] Last Infusion: 11/14/19 10:59 Dose: Infused Documented by: Sodium Chloride () 250 mls @ 15 mls/hr IV .[id number] PRN PRN Reason: Saline Flush Sodium Chloride () 250 mls @ 15 mls/hr IV .[id number] PRN PRN Reason: Additional IVPB Infusion Labetalol HCl (Trandate) 10 mg IV Q4H PRN PRN PRN Reason: SBP > 160 Last Admin: 11/13/19 22:28 Dose: 10 mg Documented by: Miscellaneous Information (Pocket Chamber) 1 each INHALATION PRN PRN PRN Reason: WITH ALBUTEROL MDI Multivitamins/Minerals (Multivitamin With Minerals (Bkc)) 1 tablet PO DAILYCM [facility] Last Admin: 11/14/19 09:12 Dose: Not Given Documented by: Nicotine (Nicoderm Cq (Pbkc)) 7 mg TRANSDERM. DAILY [facility] Last Admin: 11/14/19 10:12 Dose: 7 mg Documented by: Nutritional Formula (Lactose Free) (Ensure Clear) 120 ml PO 4X/DAYCM [facility] Last Admin: 11/14/19 11:37 Dose: Not Given Documented by: Ondansetron HCl (Zofran) 4 mg IV Q8H PRN PRN PRN Reason: NAUSEA/VOMITING Sodium Chloride () 10 - 40 ml IV UD PRN PRN Reason: SALINE FLUSH Last Admin: 11/13/19 08:31 Dose: 10 ml Documented by: Medical Necessity - Tobacco Use Smoking Status: Current every day smoker Tobacco Use: Cigarettes Route of nutrition/ use of supplements: [] Nutritional Intake: [] IV Site: [] Charles Catheter: [] - Assessment/Plan Antibiotics: [] Assessment/Plan: [] Active and Suspected Problems (Last Reviewed 11/11/19 @ 01:[address] Soham Puentes MD) Pneumonia (Acute) Sepsis (Acute) Fall (Acute) Failure to thrive in adult (Acute) Protein-calorie malnutrition, severe (Acute) Encephalopathy, failure to thrive. No fever, no lymphopenia on admit, normal ferritin, covid pcr neg, green sputum for past week per his caregiver. Low suspicion for covid. PCT was normal. Overall much improved, ok for d/c on short course augmentin. Will sign off
== END 2019-11-14 18:40 | disposition skilled nursing facility (03) | DRG 871 ==
LOC: ED 19:12 → ICU 23:33 → MS3 11-11 15:42
PROVIDERS: Admitting Provider Hospitalist; Emergency Provider Student in an Organized Health Care Education/Training Program; PCP Internal Medicine; Visit Provider Internal Medicine
DX: A41.9 Sepsis, unspecified organism (principal); J69.0 Pneumonitis due to inhalation of food and vomit; E43 Unspecified severe protein-calorie malnutrition; Z68.1 Body mass index [BMI] 19.9 or less, adult; N17.9 Acute kidney failure, unspecified; F10.239 Alcohol dependence with withdrawal, unspecified; E51.2 Wernicke's encephalopathy; R62.7 Adult failure to thrive; R53.1 Weakness; W18.30XA Fall on same level, unspecified, initial encounter; Y93.89 Activity, other specified; Y92.009 Unspecified place in unspecified non-institutional (private) residence as the place of occurrence of the external cause; Y99.8 Other external cause status; K21.9 Gastro-esophageal reflux disease without esophagitis; I10 Essential (primary) hypertension; J44.9 Chronic obstructive pulmonary disease, unspecified; Z79.899 Other long term (current) drug therapy; F17.210 Nicotine dependence, cigarettes, uncomplicated; S40.012A Contusion of left shoulder, initial encounter; E86.0 Dehydration; R13.10 Dysphagia, unspecified; E55.9 Vitamin D deficiency, unspecified; E87.6 Hypokalemia
CPT/HCPCS: 36415; 70450; 71045; 72125; 73030; 80048; 80053; 80320; 81001; 82306; 82550; 82607; 82728; 82962; 83605; 83615; 83735; 84145; 84478; 84484; 85025; 85379; 85384; 87040; 87449; 87633; 87635; 92526; 92610; 93005; 94667; 94799; 97110; 97116; 97162; 97166; 97530; 97535; 97802; 99284; 99285; 99406; J7030; J7040; J7050; P9612; A4216; G0480; J0295; J3490; U0003

== ENCOUNTER 2019-11-14 18:57 | Inpatient (IN) | payer MEDICARE, MEDICAID, SELFPAY ==
[2019-11-11 10:20] VITALS: BMI 16.2
[2019-11-14 19:05] VITALS: BP 148/86; PULSE 79; RESP 16; TEMP 36.6; O2SAT 93; BMI 110.7; BMI 17.3
[2019-11-14 19:41] VITALS: PULSE 82; RESP 16; O2SAT 93
--- NOTE | 2019-11-14 20:01 | NURSING ---
Patient wishes to be a DNRCC.
[2019-11-14] MEDS: RisperiDONE 1 MG Tablet PO (20:51)
[2019-11-14] MEDS: MELATONIN 3 MG TABLET PO (20:52)
--- NOTE | 2019-11-14 21:34 | PCM.HP.STD ---
Problem List (1) Dehydration Status: Acute (2) Aspiration pneumonia Status: Acute (3) Encephalopathy Status: Acute (4) Acute kidney injury Status: Acute (5) Insomnia Status: Chronic (6) BPH (benign prostatic hyperplasia) Status: Chronic (7) Appetite loss Status: Chronic (8) Osteoporosis Status: Chronic (9) Fall Status: Acute (10) Debility Status: Acute (11) Anxiety Status: Chronic (12) IBS (irritable bowel syndrome) Status: Chronic Qualifiers: (13) GERD (gastroesophageal reflux disease) Status: Chronic (14) Depression Status: Chronic (15) Hypertension Status: Chronic (16) Alcohol abuse Status: Chronic History of Present Illness Date of Admission: 11/14/19 Chief Complaint: Here for rehabilitation, strengthening, prior to discharge home with girlfriend. 11/10/2019 The patient is a 73 year old Male with below past medical history presented to [facility] Emergency Department with fall. 11/10/2019 CT brain multiple old lacunar infarcts. 11/10/2019 EKG normal sinus rhythm, normal EKG. 11/10/2019 CT cervical spine negative fracture, negative dislocation, shows mild spondylosis, old T2 compression fracture. 11/10/2019 Chest X-ray shows atypical viral pneumonia, rule out COVID-19. 11/10/2019 X-ray left shoulder shows degenerative changes. Fell at home, lives with girlfriend. Fell, could not get up, looks dehydrated. Left shoulder pain. COVID swab done, IV fluids given, UA negative. Unasyn, Zithromax given for possible aspiration pneumonia. Pancultured. 11/10/2019 Admit to Hospital. Unasyn, Azithromycin, Dexamethasone given for aspiration pneumonia. IV Fluids for acute kidney injury. [facility] protocol for alcohol withdrawal. Pneumonia secondary to aspiration pneumonia, COVID-19 ruled out. Treated with Unasyn, transition to Augmentin. ST for aspiration. Modified dysphagia diet. Encephalopathy improved. Electrolytes corrected. 11/14/2019 Admit to TCU with debility, here for rehabilitation, strengthening, prior to discharge home with girlfriend. Past Medical History Past Medical History (Chronic Problems): Chronic Problems (Last Reviewed 11/11/19 @ 01:[address] Soham Puentes MD) Insomnia (Chronic) BPH (benign prostatic hyperplasia) (Chronic) Appetite loss (Chronic) Osteoporosis (Chronic) Anxiety (Chronic) Dizziness (Chronic) History of kidney stones (Chronic) IBS (irritable bowel syndrome) (Chronic) GERD (gastroesophageal reflux disease) (Chronic) Depression (Chronic) Anemia (Chronic) Hypertension (Chronic) Chronic obstructive pulmonary disease (COPD) (Chronic) Wernicke encephalopathy (Chronic) Alcohol abuse (Chronic) Seizure disorder (Chronic) Tobacco abuse (Chronic) Medical History: Medical History (Last Reviewed 11/11/19 @ 01:[address] Soham Puentes MD) History of kidney stones (Chronic) Z87.442 IBS (irritable bowel syndrome) (Chronic) K58.9 GERD (gastroesophageal reflux disease) (Chronic) K21.9 Depression (Chronic) F32.9 Anemia (Chronic) D64.9 Hypertension (Chronic) I10 Anxiety F41.9 History of alcohol abuse F10.11 History of fracture of clavicle Z87.81 Vitamin D deficiency E55.9 Allergies bupropion HCl [From Wellbutrin] Allergy (Verified 11/10/19 18:05) SHAKING quetiapine fumarate [From Seroquel] Allergy (Verified 11/10/19 18:05) Unknown trazodone Adverse Reaction (Verified 11/10/19 18:05) SHAKING Home Medications: Ambulatory Orders Medication Instructions Recorded Buspirone HCl 10 mg PO BID 08/10/19 Lamotrigine [Lamictal] 200 mg PO DAILY 08/10/19 Omeprazole 40 mg PO DAILY 08/10/19 Trihexyphenidyl HCl 2 mg PO BID 08/10/19 fluoxetine 40 mg capsule 40 mg PO DAILY #90 cap 09/21/19 lisinopril 10 mg tablet 10 mg PO DAILY #30 tab 10/12/19 Acetaminophen [Tylenol] 1,000 mg PO Q8 PRN 11/11/19 Denosumab [Prolia] 60 mg SUBCUT [id number] 11/11/19 Melatonin 3 mg PO QHS 11/11/19 Multivitamin 1 ea PO DAILY 11/11/19 Tamsulosin HCl 0.4 mg PO DAILY@1730 11/11/19 Amlodipine Besylate [Norvasc] 5 mg PO DAILY #30 tab 11/14/19 Amoxicillin/Potassium Clav 1 ea PO BID 11/14/19 [Augmentin 875-125 Tablet] Benzonatate [Tessalon Perle] 100 mg PO TID PRN PRN cap 11/14/19 Nicotine [Nicoderm Cq] 7 mg TRANSDERM. DAILY 11/14/19 Risperidone [Risperdal] 1 mg PO QHS 11/14/19 Surgical History: Surgical History (Last Reviewed 11/11/19 @ 01:[address] Soham Puentes MD) History of hip surgery Z98.890 History of intestinal surgery Z98.890 due to blockage History of tonsillectomy Z90.89 Surgical History: herniorrhaphy - Umbilical., tonsillectomy, - - bowel resection secondary to small bowel obstruction, ORIF left clavicle fracture, ileocecal resection via CT scan evaluation, cephalo-medullary nail fixation left hip. Psychiatric History: Anxiety, Depression Lives: Spouse/ Significant Other - Girlfriend. Smoking Status: Current every day smoker Tobacco Use: Cigarettes Alcohol: Heavy Drugs: None - *Family History Maternal Family History: Family History (Last Reviewed 11/11/19 @ 01:[address] Soham Puentes MD) Other Anemia Anxiety Breast cancer Cancer Depression Hypertension Osteoporosis History Items: Cancer, Hypertension Paternal Family History: Family History (Last Reviewed 11/11/19 @ 01:[address] Soham Puentes MD) Other Anemia Anxiety Breast cancer Cancer Depression Hypertension Osteoporosis History Items: Cancer, Hypertension Review of Systems Constitutional: Denies: Chills, Fever, Weight Change HEENT: Denies: Head Aches, Sinus Congestion, Sinus Drainage Cardiovascular: Denies: Chest Pain, Palpitations Respiratory: Denies: Cough, Shortness of breath at rest, Sputum production Gastrointestinal: Denies: Abdominal Pain, Nausea, Vomiting Genitourinary: Denies: Dysuria Musculoskeletal: Denies: Joint Pain, Joint Tenderness Skin: Denies: Rash, Wounds Neurological: Denies: Numbness, Tingling, Focal weakness Psychiatric: Denies: Anxiety, Depression, Homicidal Ideations, Suicidal Ideations Hematologic/ Lymphatic: Denies: Easy Bruising, Easy Bleeding VTE Information - Inpt Only VTE Present on Admission: No VTE Mechan Device Prophylaxis: Knee High JOANNA Hose VTE Pharm Prophylaxis ordered?: Yes Patient Problems: Active and Suspected Problems (Last Reviewed 11/11/19 @ 01:[address] Soham Puentes MD) Dehydration (Acute) Aspiration pneumonia (Acute) Encephalopathy (Acute) Acute kidney injury (Acute) - Physical Exam Vitals/I&O's: Vital Signs Temp Pulse Resp BP Pulse Ox 97.8 F 79 16 148/86 H 93 11/14/19 19:05 11/14/19 19:05 11/14/19 19:05 11/14/19 19:05 11/14/19 19:05 Oxygen Delivery Method Room Air Weight: 50.094 kg Body Mass Index (BMI) 16.2 Finger Stick Blood Glucose 122 General: Alert, Oriented x3, Cooperative HEENT: Atraumatic, PERRLA, EOMI, Normocephalic Neck: Supple, No JVD, Negative Carotid Bruits Lungs: Clear to auscultation, Normal air movement Cardiovascular: Regular rate, No murmurs Abdomen: Bowel Sounds Present, Soft, Non Tender Extremities: No edema, Capillary Refill Less than 3 Seconds Skin: No rashes, No breakdown Musculoskeletal: No Tenderness to Palpation of Joints or Extremities Neurological: Cranial nerves II-XII grossly intact Psych/Mental Status: Normal Affect, Appropriate Current Medications Acetaminophen (Tylenol) 1,000 mg PO Q8H PRN PRN PRN Reason: Pain 1-10/10 or Fever Amlodipine Besylate (Norvasc) 5 mg PO DAILY [facility] Amoxicillin/Clavulanate Potassium (Augmentin Tablet) 875 mg PO BID [facility] Benzonatate (Tessalon Perle) 100 mg PO TID PRN PRN PRN Reason: COUGH Buspirone HCl (Buspar) 10 mg PO BID [facility] Fluoxetine HCl (Prozac) 40 mg PO DAILY [facility] Lamotrigine (Lamictal) 200 mg PO DAILY [facility] Lisinopril (Zestril) 10 mg PO DAILY [facility] Melatonin (Melatonin) 3 mg PO QHS [facility] Last Admin: 11/14/19 20:52 Dose: 3 mg Documented by: Multivitamins (Multivitamin) 1 tablet PO DAILY@0800 [facility] Nicotine (Nicoderm Cq (Pbkc)) 7 mg TRANSDERM. DAILY [facility] Nutritional Formula (Lactose Free) (Ensure Enlive) 120 ml PO 4X/DAY [facility] Last Admin: 11/14/19 20:51 Dose: 120 ml Documented by: Pantoprazole Sodium (Protonix) 40 mg PO DAILY [facility] Risperidone (Risperdal) 1 mg PO QHS [facility] Last Admin: 11/14/19 20:51 Dose: 1 mg Documented by: Tamsulosin HCl (Flomax) 0.4 mg PO DAILY@1730 [facility] Trihexyphenidyl HCl (Trihexyphenidyl Hcl) 2 mg PO BID [facility] Tuberculin PPD (Tubersol, Aplisol, Ppd) 5 tu ID X1 ONE Stop: 11/15/19 10:01 Tuberculin PPD (Tubersol, Aplisol, Ppd) 5 tu ID X1 ONE Stop: 11/22/19 10:01 Assessment/Plan All Active Problems (Last Reviewed 11/11/19 @ 01:[address] Soham Puentes MD) Pneumonia (Acute) Sepsis (Acute) Fall (Acute) Failure to thrive in adult (Acute) Protein-calorie malnutrition, severe (Acute) Dehydration (Acute) Aspiration pneumonia (Acute) Encephalopathy (Acute) Acute kidney injury (Acute) Debility (Acute) Benzodiazepine withdrawal (Resolved) Cholelithiasis (Resolved) Closed left hip fracture (Resolved) 73 year old male with below past medical history hospitalized for aspiration pneumonia, COVID-19 ruled out, complicated by acute kidney injury, dehydration, alcohol withdrawal, dysphagia, admitted to TCU with debility, here for rehabilitation, strengthening, prior to discharge home with girlfriend. Debility - PT/OT. Dysphagia - ST. Pain - Tylenol 1000MG Q6H PRN pain (1-10). Bowel - Miralax 17GM daily, Senna/colace 1 tablet twice daily, Dulcolax 10MG daily PRN. Adult immunization - Administer Prevnar 13, Pneumovax 23, Fluzone as appropriate. DVT prophylaxis - Lovenox 40MG SC daily. Hypertension - Lisinopril 10MG daily, Amlodipine 5MG daily. Aspiration pneumonia - Augmentin 875MG twice daily thru 11/20/2019. Cough - Tessalon Perle 100MG TID PRN. Anxiety - Buspar 10MG twice daily, stable chronic fci use, GDR not recommended. Nutrition - Ensure 120ML 4x/day, MVI daily. 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 Seizure disorder - Lamictal 200MG daily. Insomnia - Melatonin 3MG QHS. Tobacco Abuse - Nicotine 7MG patch 1 patch TD daily. GERD - Pantoprazole 40MG daily. BPH - Tamsulosin 0.4MG daily. Extrapyramidal symptoms - Artane 2MG twice daily.
[2019-11-14 22:56] LABS: Probe Check PASS; Specimen Processing Control PASS
[2019-11-15 05:42] LABS: Absolute Lymphocyte Count 1.77 X10^3/uL (0.83-4.51); Absolute Neutrophil Count 3.7 X10^3/uL (2.0-7.7); Basophil# 0.03 X10^3/uL; Basophil% 0.5 % (0-1); Eosinophil# 0.33 X10^3/uL; Eosinophils% 5.1 % (0-5); Hematocrit 35.2 % (40-54); Hemoglobin 11.5 g/dL (13.0-16.5); Lymphocyte # 1.77 X10^3/ul (4.0); Lymphocyte % 27.1 % (19-41); Mean Corp Hgb Conc 32.7 g/dL (32-36); Mean Corpuscular Volume 88.7 fL (80-94); Mean Platelet Vol. 9.6 fl (6.2-12.0); Monocyte# 0.71 X10^3/uL; Monocyte% 10.9 % (0-10); NRBC Flagged by Analyzer 0 % (0-5); Neutrophil # 3.66 X10^3/uL (2.7-7.7); Neutrophil % 56.1 % (47-70); Platelet Count 284 K/mm3 (150-450); RBC Distribution Width CV 14.6 % (11.6-14.6); RBC Distribution Width SD 46.3 fl (35.1-43.9); Red Blood Count 3.97 M/mm3 (4.6-6.2); White Blood Count 6.5 K/mm3 (4.4-11.0)
[2019-11-15 06:21] LABS: Anion Gap 6 (5-15); BUN 6 mg/dL (7-18); BUN/Creat Ratio 7.5 RATIO (10-20); Calcium,Total 8.7 mg/dL (8.5-10.1); Chloride 110 mmol/L (98-107); EST Glomerular Filtration Rate 100 mL/min (>60); Est Glom Filt Rate - Afr Amer 122 mL/min (>60); Estimated Creatinine Clearance 58.27 ml/min; Glucose 87 mg/dL (74-106); Potassium 2.6 mmol/L (3.5-5.1); Sodium Level 142 mmol/L (136-145)
--- NOTE | 2019-11-15 06:23 | NURSING ---
Lab called with Critical Potassium Level. RN aware. Will update Dr. Cortez.
[2019-11-15] MEDS: amLODIPine 5 MG Tablet PO ×2 (06:41→07:34)
[2019-11-15] MEDS: busPIRone 5 MG Tablet 10 MG PO ×2 (06:41→17:28)
[2019-11-15] MEDS: Senna/Docusate Sodium 1 Tablet PO (06:41)
[2019-11-15] MEDS: FLUoxetine 20 MG Capsule 40 MG PO (06:41)
[2019-11-15] MEDS: Pantoprazole Sodium 40 MG Tablet PO (06:41)
[2019-11-15] MEDS: Lisinopril 10 MG Tablet PO ×2 (06:41→07:35)
[2019-11-15] MEDS: Menthol/Lanolin/Calamine/Znox 113 GM Tube 1 APPLIC TOPICAL ×2 (06:41→20:13)
[2019-11-15] MEDS: lamoTRIgine 100 MG Tablet 200 MG PO (06:41)
[2019-11-15] MEDS: Enoxaparin 40 MG/0.4 ML Syringe SC (06:43)
[2019-11-15] MEDS: TRIHEXYPHENIDYL HCL 2 MG TABLET PO ×2 (06:44→17:30)
[2019-11-15 06:51] VITALS: BP 196/124; PULSE 73; RESP 16; TEMP 37.1; O2SAT 95
[2019-11-15 06:52] VITALS: BP 200/103; PULSE 72
--- NOTE | 2019-11-15 06:58 | NURSING ---
BP reported by FUEL ASSEMBLER 196/124, HR 72. Vitals reported to Dr. Cortez as well as K+ level of 2.6.
[2019-11-15 07:18] VITALS: BP 168/102; PULSE 111
[2019-11-15] MEDS: cloNIDine HCl 0.1 MG Tablet PO (07:34)
[2019-11-15] MEDS: Multivitamins,Therapeutic Tablet 1 TABLET PO (07:36)
[2019-11-15 09:16] VITALS: BP 72/58; PULSE 78
--- NOTE | 2019-11-15 09:17 | NURSING ---
Lisinopril changed to 10mg and Norvasc to 5mg per Dr. Cortez order.
--- NOTE | 2019-11-15 09:17 | NURSING ---
PT blood pressure rechecked by this nurse. right arm 74/48,manual-left 72/58,manual, hr 78. aware,new order given. will recheck bp in a hour. if bp not up to 100 to call . RN aware.
[2019-11-15 10:26] VITALS: BP 110/70
--- NOTE | 2019-11-15 10:26 | NURSING ---
PT bp 110/70,right arm, manual. RN aware.
[2019-11-15] MEDS: Tuberculin,Purif.prot.deriv. 50 TU/ML Vial 5 ML ID (11:24)
--- NOTE | 2019-11-15 11:47 | NURSING ---
sister Linda updated on pt.
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
[2019-11-15 14:25] VITALS: BP 106/68; PULSE 69; RESP 16; TEMP 37.2; O2SAT 93
--- NOTE | 2019-11-15 14:53 | NT.THERAPY_ITS ---
Nutrition Therapy Report - History Nutrition Services has been consulted to:: Manage nutrient details of diet order Current diet / nutrition support order:: Regular diet---pureed with honey-thick liquids; supervised feeds. 240 ml [place] Instant Breakfast TID with meals. 120 ml ensure enlive 4 times/day with medpass. Ensure Pudding BID with lunch and dinner - Anthropometric Measurements Height:: 5 ft 7 in Weight:: 48 kg Body Mass Index (BMI):: 16.5 - Relevant Labs Relevant Labs:: RBC 3.97 M/mm3 (4.6-6.2) L 11/15/19 05:05 Hgb 11.5 g/dL (13.0-16.5) L 11/15/19 05:05 Hct 35.2 % (40-54) L 11/15/19 05:05 RDW Std Deviation 46.3 fl (35.1-43.9) H 11/15/19 05:05 [place] % (Auto) 10.9 % (0-10) H 11/15/19 05:05 Eos % (Auto) 5.1 % (0-5) H 11/15/19 05:05 Potassium 2.6 mmol/L (3.5-5.1) L* 11/15/19 05:05 Chloride 110 mmol/L (98-107) H 11/15/19 05:05 BUN 6 mg/dL (7-18) L 11/15/19 05:05 BUN/Creatinine Ratio 7.5 RATIO (10-20) L 11/15/19 05:05 - Assessment Food / Nutrition-Related History:: Resident usually drinks 2 ensure per day and likes CIB--both being provided; intake has declined over the past year or so with UBW reported~130-135 lbs. Per EMR review---wt 2 mos ago~132 lbs (~20% wt loss) and wt approx 12-13 mos ago~147 lbs (~28% wt loss). Significant wt loss along with decline in PO and +physical signs of muscle and fat wasting throughout meet criteria for severe malnutrition related to chronic disease. PO has been fair at best~50% meals take but, accepting of ONS w/ medpass and meals. - Nutrition Diagnosis Problem / Etiology / Signs & Symptoms (PES):: Severe pro-ramses malnutrition of chronic disease related to increased energy expenditure and dysphagia as evidenced by ~20% wt loss x 2 months and ~28% wt loss x past year, significant decline in PO~50% meals consumed and +physical signs of muscle and fat wasting. Evidence of Malnutrition Exists:: Yes Severe PCM:: Chronic Illness - Nutrition Intervention Nutrition Prescription:: ~3980-4912 kcal and ~60-75 gm protein/day - Food / Nutrient Delivery Interventions Summary of nutrition intervention:: Continue liberalized regular diet with carnation instant breakfast and ensure pudding with meals and ensure enlive with medpass as tolerated. Comsider TF support to supplement increased nutriiton need for repletion. Nutrition support ordered as / adjusted to:: No nutrition support ordered at this time. Nutrition education provided?: No - MNT Monitoring Further MNT monitoring and evaluation required?: Yes MNT Follow-up in:: 7-9 days
--- NOTE | 2019-11-15 15:01 | NURSING ---
Maximino patch verified to right delt.
[2019-11-15 15:02] VITALS: BMI 16.5
--- NOTE | 2019-11-15 16:15 | RAD_ITS ---
STUDY: X-RAY - ABDOMEN/PELVIS REASON FOR EXAM: Male, 73 years old. DIARRHEA, SEPSIS SECONDARY TO PNEUMONIA TECHNIQUE: Two AP supine views of the abdomen and pelvis. COMPARISON: Prior study of 08/10/2019 FINDINGS: Normal visualized lung bases. There is an unremarkable bowel gas pattern. There is no demonstrated free abdominal air. The visualized liver, spleen and kidneys are grossly normal in size and morphology. There are calcified plaques of the abdominal aorta. Status post ORIF changes of the left femur are noted. RAD/Abdomen Single View IMPRESSION: Calcified plaques of the abdominal aorta. ORIF changes of the left femur noted stabilizing a nondisplaced intertrochanteric fracture. Electronically Signed: Johnnie Carrera MD at 16:39 EDT , Service support ,
[2019-11-15] MEDS: Tamsulosin HCl 0.4 MG Capsule PO (17:29)
[2019-11-15] MEDS: Amox/Clavulanate 875 MG Tablet PO (20:06)
[2019-11-15] MEDS: MELATONIN 3 MG TABLET PO (20:07)
[2019-11-15] MEDS: RisperiDONE 1 MG Tablet PO (20:07)
[2019-11-16 05:00] VITALS: BP 157/88; PULSE 57; RESP 14; TEMP 36.6; O2SAT 93
[2019-11-16] MEDS: Enoxaparin 40 MG/0.4 ML Syringe SC (05:42)
[2019-11-16] MEDS: TRIHEXYPHENIDYL HCL 2 MG TABLET PO ×2 (05:43→17:35)
[2019-11-16] MEDS: Pantoprazole Sodium 40 MG Tablet PO (05:43)
[2019-11-16] MEDS: Menthol/Lanolin/Calamine/Znox 113 GM Tube 1 APPLIC TOPICAL ×2 (05:43→21:53)
[2019-11-16] MEDS: FLUoxetine 20 MG Capsule 40 MG PO (05:44)
[2019-11-16] MEDS: Lisinopril 10 MG Tablet PO (05:44)
[2019-11-16] MEDS: lamoTRIgine 100 MG Tablet 200 MG PO (05:46)
[2019-11-16] MEDS: Amox/Clavulanate 875 MG Tablet PO ×2 (05:46→17:34)
[2019-11-16] MEDS: busPIRone 5 MG Tablet 10 MG PO ×2 (05:46→17:35)
[2019-11-16] MEDS: amLODIPine 5 MG Tablet PO (05:46)
--- NOTE | 2019-11-16 07:05 | NURSING ---
nicotine patch to the lt delt.
[2019-11-16] MEDS: Multivitamins,Therapeutic Tablet 1 TABLET PO (07:43)
[2019-11-16 09:22] VITALS: RESP 16; O2SAT 91
--- NOTE | 2019-11-16 12:37 | NURSING ---
Pt asked this nurse to call his friend ashlee and ask for her to bring in his dentures and electric razor, Ashlee was called but was not available to speak with message left to have her return call
[2019-11-16 13:42] VITALS: BP 134/69; PULSE 84; RESP 20; TEMP 36.9; O2SAT 93
[2019-11-16] MEDS: Tamsulosin HCl 0.4 MG Capsule PO (17:34)
[2019-11-16] MEDS: RisperiDONE 1 MG Tablet PO (21:49)
[2019-11-16] MEDS: MELATONIN 3 MG TABLET PO (21:50)
--- NOTE | 2019-11-16 23:02 | NURSING ---
nicotine patch dry and intact on left deltoid.
[2019-11-17 05:00] VITALS: BP 140/75; PULSE 58; RESP 16; TEMP 36.7
[2019-11-17] MEDS: Enoxaparin 40 MG/0.4 ML Syringe SC (05:10)
[2019-11-17] MEDS: Lisinopril 10 MG Tablet PO (05:11)
[2019-11-17] MEDS: Amox/Clavulanate 875 MG Tablet PO ×2 (05:11→17:49)
[2019-11-17] MEDS: amLODIPine 5 MG Tablet PO (05:11)
[2019-11-17] MEDS: lamoTRIgine 100 MG Tablet 200 MG PO (05:11)
[2019-11-17] MEDS: Pantoprazole Sodium 40 MG Tablet PO (05:11)
[2019-11-17] MEDS: busPIRone 5 MG Tablet 10 MG PO ×2 (05:11→17:49)
[2019-11-17] MEDS: FLUoxetine 20 MG Capsule 40 MG PO (05:11)
[2019-11-17] MEDS: TRIHEXYPHENIDYL HCL 2 MG TABLET PO ×2 (05:11→17:50)
[2019-11-17] MEDS: Menthol/Lanolin/Calamine/Znox 113 GM Tube 1 APPLIC TOPICAL ×2 (05:22→20:54)
[2019-11-17 05:53] LABS: Anion Gap 4 (5-15); BUN 12 mg/dL (7-18); BUN/Creat Ratio 11.5 RATIO (10-20); Calcium,Total 8.9 mg/dL (8.5-10.1); Chloride 116 mmol/L (98-107); Creatinine, Serum 1.04 mg/dL (0.70-1.30); EST Glomerular Filtration Rate 74 mL/min (>60); Est Glom Filt Rate - Afr Amer 90 mL/min (>60); Estimated Creatinine Clearance 42.95 ml/min; Glucose 91 mg/dL (74-106); Potassium 3.3 mmol/L (3.5-5.1); Sodium Level 145 mmol/L (136-145)
[2019-11-17] MEDS: Multivitamins,Therapeutic Tablet 1 TABLET PO (07:36)
[2019-11-17] MEDS: Loperamide 2 MG Capsule PO (09:48)
--- NOTE | 2019-11-17 10:32 | PCM.PN.RX ---
<Jennifer Guzman - Last Filed: 11/17/19 10:32> Progress Note - Pharmacy Subjective: TCU Admission Objective: Allergies bupropion HCl [From Wellbutrin] Allergy (Verified 11/10/19 18:05) SHAKING quetiapine fumarate [From Seroquel] Allergy (Verified 11/10/19 18:05) Unknown trazodone Adverse Reaction (Verified 11/10/19 18:05) SHAKING Current Medications Generic Name Dose Route Start Last Admin Trade Name Freq PRN Reason Stop Dose Admin Acetaminophen 1,000 mg 11/14/19 21:52 Tylenol PO Q6H PRN PRN Pain Score 1-10/10 Amlodipine Besylate 5 mg 11/16/19 06:00 11/17/19 05:11 Norvasc PO 5 mg DAILY URSULA Administration Amoxicillin/Clavulanate Potassium 875 mg 11/15/19 21:00 11/17/19 05:11 Augmentin Tablet PO 11/20/19 23:59 875 mg BID URSULA Administration Benzonatate 100 mg 11/14/19 19:33 Tessalon Perle PO TID PRN PRN COUGH Buspirone HCl 10 mg 11/15/19 06:00 11/17/19 05:11 Buspar PO 10 mg BID URSULA Administration Calamine/Phenol 1 applic 11/15/19 06:00 11/17/19 05:22 Calmoseptine Ointment TOPICAL 1 applicatio 0600,2200 URSULA Administration Protocol Enoxaparin Sodium 40 mg 11/15/19 06:00 11/17/19 05:10 Lovenox SC 40 mg DAILY@0600 URSULA Administration Fluoxetine HCl 40 mg 11/15/19 06:00 11/17/19 05:11 Prozac PO 40 mg DAILY URSULA Administration Lactobacillus Acidophilus 1 tablet 11/16/19 18:00 11/17/19 05:11 Acidophilus PO 1 tablet BID URSULA Administration Lamotrigine 200 mg 11/15/19 06:00 11/17/19 05:11 Lamictal PO 200 mg DAILY URSULA Administration Lisinopril 10 mg 11/16/19 06:00 11/17/19 05:11 Zestril PO 10 mg DAILY URSULA Administration Loperamide HCl 2 mg 11/17/19 07:57 11/17/19 09:48 Imodium PO 2 mg Q2H PRN PRN Administration Diarrhea Melatonin 3 mg 11/14/19 22:00 11/16/19 21:50 Melatonin PO 3 mg QHS URSULA Administration Multivitamins 1 tablet 11/15/19 08:00 11/17/19 07:36 Multivitamin PO 1 tablet DAILY@0800 URSULA Administration Nicotine 7 mg 11/15/19 06:00 11/17/19 05:13 Nicoderm Cq (Pbkc) TRANSDERM. 7 mg DAILY URSULA Administration Nutritional Formula (Lactose Free) 120 ml 11/14/19 22:00 11/17/19 05:10 Ensure Enlive PO 120 ml 4X/DAY URSULA Administration Pantoprazole Sodium 40 mg 11/15/19 06:00 11/17/19 05:11 Protonix PO 40 mg DAILY URSULA Administration Potassium Chloride 20 meq 11/17/19 12:45 K-Dur PO TIDCM URSULA Risperidone 1 mg 11/14/19 22:00 11/16/19 21:49 Risperdal PO 1 mg QHS URSULA Administration Tamsulosin HCl 0.4 mg 11/15/19 17:30 11/16/19 17:34 Flomax PO 0.4 mg DAILY@1730 URSULA Administration Trihexyphenidyl HCl 2 mg 11/15/19 06:00 11/17/19 05:11 Trihexyphenidyl Hcl PO 2 mg BID URSULA Administration Tuberculin PPD 5 tu 11/22/19 10:00 Tubersol, Aplisol, Ppd ID 11/22/19 10:01 X1 ONE Problem List (Last Reviewed 11/11/19 @ 01:[address] Soham Puentes MD) Dehydration (Acute) Aspiration pneumonia (Acute) Encephalopathy (Acute) Acute kidney injury (Acute) Insomnia (Chronic) BPH (benign prostatic hyperplasia) (Chronic) Appetite loss (Chronic) Osteoporosis (Chronic) Vital Signs Temp Pulse Resp BP Pulse Ox 98.1 F 58 L 16 140/75 H 93 11/17/19 05:00 11/17/19 05:00 11/17/19 05:00 11/17/19 05:00 11/16/19 13:42 Oxygen Delivery Method Room Air Weight: 48 kg Body Mass Index (BMI) 16.5 Finger Stick Blood Glucose 122 Sodium 145 mmol/L (136-145) 11/17/19 05:05 Potassium 3.3 mmol/L (3.5-5.1) L 11/17/19 05:05 Chloride 116 mmol/L (98-107) H 11/17/19 05:05 Carbon Dioxide 25.0 mmol/L (21.0-32.0) 11/17/19 05:05 Anion Gap 4 (5-15) L 11/17/19 05:05 BUN 12 mg/dL (7-18) 11/17/19 05:05 Creatinine 1.04 mg/dL (0.70-1.30) 11/17/19 05:05 Est GFR (MDRD) Af Amer 90 mL/min (>60) 11/17/19 05:05 Est GFR (MDRD) Non-Af 74 mL/min (>60) 11/17/19 05:05 BUN/Creatinine Ratio 11.5 RATIO (10-20) 11/17/19 05:05 Glucose 91 mg/dL (74-106) 11/17/19 05:05 Assessment/Plan: 1. Pain: acetaminophen 1000mg PO Q6H PRN pain 1-01/27. Please continue to monitor for increased pain and PRN usage. 2. DVT prophylaxis: enoxaparin 40mg SC daily. Please continue to monitor for S/S of bleeding/DVT, platelets and renal function. 3. Aspiration pneumonia: amoxicillin/clavulanate 875mg PO BID thru 11/20/19. Please continue to monitor for S/S of infection and diarrhea. 4. Hypertension: lisinopril 10mg PO daily and amlodipine 5mg PO daily. Please continue to monitor BP (last 140/75), potassium (last 3.3 mmol/L), renal function and edema. 5. Seizure disorder: lamotrigine 200mg PO daily. Please continue to monitor for S/S of seizure and rash. 6. Insomnia: melatonin 3mg PO QHS. Please continue to monitor for insomnia. 7. GERD: pantoprazole 40mg PO daily. Please continue to monitor for S/S of GERD. 8. BPH: tamsulosin 0.4mg PO daily. Please continue to monitor for S/S of hypotension and urine flow. 9. Extrapyramidal symptoms: trihexyphenidyl 2mg PO BID. Please continue to monitor for extrapyramidal symptoms, constipation and dry mouth. 10. Hypokalemia: potassium chloride 20mEq PO TIDCM. Please continue to monitor potassium levels (last 3.3 mmol/L). 11. Nutrition: multivitamin 1T PO daily. Please continue to monitor. 12. Tobacco abuse: nicotine 7mg patch 1 patch TD daily. Please continue to monitor for nicotine cravings, rash, pruritus at application sites. Psychotropic Medications: 1. Anxiety: buspirone 10mg PO BID. Please see physician note regarding GDR. 2. Depression: fluoxetine 40mg PO daily and risperidone 1mg PO QHS. Please see physician note regarding GDR. Unnecessary Medications: None Bowel Regimen: Patient with diarrhea. Loperamide 2mg PO Q2H PRN diarrhea. Please continue to monitor for diarrhea and PRN usage. Date of Note:: 11/17/19 - Provider Comments Provider responsibility: Provider responsible to enter orders to implement recommendations <Diaz Cortez Chi - Last Filed: 11/17/19 16:46> Progress Note - Pharmacy Subjective: [] Objective: Allergies bupropion HCl [From Wellbutrin] Allergy (Verified 11/10/19 18:05) SHAKING quetiapine fumarate [From Seroquel] Allergy (Verified 11/10/19 18:05) Unknown trazodone Adverse Reaction (Verified 11/10/19 18:05) SHAKING Current Medications Generic Name Dose Route Start Last Admin Trade Name Freq PRN Reason Stop Dose Admin Acetaminophen 1,000 mg 11/14/19 21:52 Tylenol PO Q6H PRN PRN Pain Score 1-10/10 Amlodipine Besylate 5 mg 11/16/19 06:00 11/17/19 05:11 Norvasc PO 5 mg DAILY URSULA Administration Amoxicillin/Clavulanate Potassium 875 mg 11/15/19 21:00 11/17/19 05:11 Augmentin Tablet PO 11/20/19 23:59 875 mg BID URSULA Administration Benzonatate 100 mg 11/14/19 19:33 Tessalon Perle PO TID PRN PRN COUGH Buspirone HCl 10 mg 11/15/19 06:00 11/17/19 05:11 Buspar PO 10 mg BID URSULA Administration Calamine/Phenol 1 applic 11/15/19 06:00 11/17/19 05:22 Calmoseptine Ointment TOPICAL 1 applicatio 06,0 URSULA Administration Protocol Enoxaparin Sodium 40 mg 11/15/19 06:00 11/17/19 05:10 Lovenox SC 40 mg DAILY@0600 URSULA Administration Fluoxetine HCl 40 mg 11/15/19 06:00 11/17/19 05:11 Prozac PO 40 mg DAILY URSULA Administration Lactobacillus Acidophilus 1 tablet 11/16/19 18:00 11/17/19 05:11 Acidophilus PO 1 tablet BID URSULA Administration Lamotrigine 200 mg 11/15/19 06:00 11/17/19 05:11 Lamictal PO 200 mg DAILY URSULA Administration Lisinopril 10 mg 11/16/19 06:00 11/17/19 05:11 Zestril PO 10 mg DAILY URSULA Administration Loperamide HCl 2 mg 11/17/19 07:57 11/17/19 09:48 Imodium PO 2 mg Q2H PRN PRN Administration Diarrhea Melatonin 3 mg 11/14/19 22:00 11/16/19 21:50 Melatonin PO 3 mg QHS URSULA Administration Multivitamins 1 tablet 11/15/19 08:00 11/17/19 07:36 Multivitamin PO 1 tablet DAILY@0800 URSULA Administration Nicotine 7 mg 11/15/19 06:00 11/17/19 05:13 Nicoderm Cq (Pbkc) TRANSDERM. 7 mg DAILY URSULA Administration Nutritional Formula (Lactose Free) 120 ml 11/14/19 22:00 11/17/19 11:07 Ensure Enlive PO 120 ml 4X/DAY URSULA Administration Pantoprazole Sodium 40 mg 11/15/19 06:00 11/17/19 05:11 Protonix PO 40 mg DAILY URSULA Administration Potassium Chloride 20 meq 11/17/19 12:45 11/17/19 12:49 K-Dur PO 20 meq TIDCM URSULA Administration Risperidone 1 mg 11/14/19 22:00 11/16/19 21:49 Risperdal PO 1 mg QHS URSULA Administration Tamsulosin HCl 0.4 mg 11/15/19 17:30 11/16/19 17:34 Flomax PO 0.4 mg DAILY@1730 URSULA Administration Trihexyphenidyl HCl 2 mg 11/15/19 06:00 11/17/19 05:11 Trihexyphenidyl Hcl PO 2 mg BID URSULA Administration Tuberculin PPD 5 tu 11/22/19 10:00 Tubersol, Aplisol, Ppd ID 11/22/19 10:01 X1 ONE Problem List (Last Reviewed 11/11/19 @ 01:[address] Soham Puentes MD) Dehydration (Acute) Aspiration pneumonia (Acute) Encephalopathy (Acute) Acute kidney injury (Acute) Insomnia (Chronic) BPH (benign prostatic hyperplasia) (Chronic) Appetite loss (Chronic) Osteoporosis (Chronic) Vital Signs Temp Pulse Resp BP Pulse Ox 98.0 F 64 14 110/75 94 11/17/19 14:01 11/17/19 14:01 11/17/19 14:01 11/17/19 14:01 11/17/19 14:01 Oxygen Delivery Method Room Air Weight: 48 kg Body Mass Index (BMI) 16.5 Finger Stick Blood Glucose 122 Sodium 145 mmol/L (136-145) 11/17/19 05:05 Potassium 3.3 mmol/L (3.5-5.1) L 11/17/19 05:05 Chloride 116 mmol/L (98-107) H 11/17/19 05:05 Carbon Dioxide 25.0 mmol/L (21.0-32.0) 11/17/19 05:05 Anion Gap 4 (5-15) L 11/17/19 05:05 BUN 12 mg/dL (7-18) 11/17/19 05:05 Creatinine 1.04 mg/dL (0.70-1.30) 11/17/19 05:05 Est GFR (MDRD) Af Amer 90 mL/min (>60) 11/17/19 05:05 Est GFR (MDRD) Non-Af 74 mL/min (>60) 11/17/19 05:05 BUN/Creatinine Ratio 11.5 RATIO (10-20) 11/17/19 05:05 Glucose 91 mg/dL (74-106) 11/17/19 05:05 Assessment/Plan: Psychotropic Medications: Unnecessary Medications: Bowel Regimen: - Provider Comments Provider responsibility: Provider responsible to enter orders to implement recommendations Provider Comments to Recommendations by Pharmacy: Agree
[2019-11-17 14:01] VITALS: BP 110/75; PULSE 64; RESP 14; TEMP 36.7; O2SAT 94
[2019-11-17] MEDS: Tamsulosin HCl 0.4 MG Capsule PO (17:47)
[2019-11-17] MEDS: MELATONIN 3 MG TABLET PO (20:56)
[2019-11-17] MEDS: RisperiDONE 1 MG Tablet PO (20:57)
[2019-11-18 02:50] VITALS: BP 135/80; PULSE 61; RESP 17; TEMP 36.2; O2SAT 94
[2019-11-18 03:32] VITALS: BP 144/86; PULSE 54; RESP 14; TEMP 37.3; O2SAT 92
[2019-11-18] MEDS: busPIRone 5 MG Tablet 10 MG PO ×2 (04:54→17:00)
[2019-11-18] MEDS: Enoxaparin 40 MG/0.4 ML Syringe SC (04:54)
[2019-11-18] MEDS: FLUoxetine 20 MG Capsule 40 MG PO (04:54)
[2019-11-18] MEDS: amLODIPine 5 MG Tablet PO (04:54)
[2019-11-18] MEDS: Lisinopril 10 MG Tablet PO (04:55)
[2019-11-18] MEDS: lamoTRIgine 100 MG Tablet 200 MG PO (04:55)
[2019-11-18] MEDS: Amox/Clavulanate 875 MG Tablet PO ×2 (04:55→17:00)
[2019-11-18] MEDS: Pantoprazole Sodium 40 MG Tablet PO (04:55)
[2019-11-18] MEDS: TRIHEXYPHENIDYL HCL 2 MG TABLET PO ×2 (04:55→17:00)
[2019-11-18] MEDS: Menthol/Lanolin/Calamine/Znox 113 GM Tube 1 APPLIC TOPICAL ×2 (05:02→19:56)
[2019-11-18] MEDS: Multivitamins,Therapeutic Tablet 1 TABLET PO (09:05)
[2019-11-18 10:30] VITALS: PULSE 62; RESP 18; O2SAT 93
--- NOTE | 2019-11-18 12:00 | MDS.RN ---
Pain interview for carlos 11/21/19 completed.
[2019-11-18] MEDS: Loperamide 2 MG Capsule PO ×2 (13:23→18:30)
[2019-11-18] MEDS: Acetaminophen 500 MG Tablet 1000 MG PO (13:24)
[2019-11-18 13:55] VITALS: BP 114/63; PULSE 63; RESP 14; TEMP 37.1; O2SAT 96
[2019-11-18] MEDS: Tamsulosin HCl 0.4 MG Capsule PO (16:41)
[2019-11-18] MEDS: MELATONIN 3 MG TABLET PO (19:53)
[2019-11-18] MEDS: RisperiDONE 1 MG Tablet PO (19:54)
--- NOTE | 2019-11-19 01:04 | PCA ---
patient was up walking in room went in alarm was going off.asked pt.to sit down so would not fall.he told me would do what the hell wanted to do and we could all kiss his ass.he then proceded to slap my hand when i offered help.i informed the chg.nurse.
[2019-11-19 04:34] VITALS: BP 124/70; PULSE 55; RESP 16; TEMP 37; O2SAT 97
[2019-11-19] MEDS: Loperamide 2 MG Capsule PO (04:35)
[2019-11-19] MEDS: busPIRone 5 MG Tablet 10 MG PO ×2 (04:36→17:26)
[2019-11-19] MEDS: Amox/Clavulanate 875 MG Tablet PO ×2 (04:36→17:26)
[2019-11-19] MEDS: Lisinopril 10 MG Tablet PO (04:36)
[2019-11-19] MEDS: TRIHEXYPHENIDYL HCL 2 MG TABLET PO ×2 (04:36→17:26)
[2019-11-19] MEDS: amLODIPine 5 MG Tablet PO (04:36)
[2019-11-19] MEDS: FLUoxetine 20 MG Capsule 40 MG PO (04:37)
[2019-11-19] MEDS: Pantoprazole Sodium 40 MG Tablet PO (04:37)
[2019-11-19] MEDS: lamoTRIgine 100 MG Tablet 200 MG PO (04:39)
[2019-11-19] MEDS: Enoxaparin 40 MG/0.4 ML Syringe SC (04:42)
[2019-11-19] MEDS: Menthol/Lanolin/Calamine/Znox 113 GM Tube 1 APPLIC TOPICAL ×2 (04:45→20:13)
[2019-11-19] MEDS: Multivitamins,Therapeutic Tablet 1 TABLET PO (08:04)
[2019-11-19 08:45] LABS: Anion Gap 7 (5-15); BUN 11 mg/dL (7-18); BUN/Creat Ratio 10.4 RATIO (10-20); Calcium,Total 9.1 mg/dL (8.5-10.1); Chloride 113 mmol/L (98-107); Creatinine, Serum 1.06 mg/dL (0.70-1.30); EST Glomerular Filtration Rate 73 mL/min (>60); Est Glom Filt Rate - Afr Amer 88 mL/min (>60); Estimated Creatinine Clearance 42.14 ml/min; Glucose 89 mg/dL (74-106); Potassium 4.4 mmol/L (3.5-5.1); Sodium Level 144 mmol/L (136-145)
[2019-11-19 14:07] VITALS: BP 125/69; PULSE 65; RESP 16; TEMP 37.1; O2SAT 95
--- NOTE | 2019-11-19 15:41 | NURSING ---
Next of kin updated and transferred to Norma's Voicemail to set up outdoor visit on 11/28 per next of kin request.
[2019-11-19] MEDS: Tamsulosin HCl 0.4 MG Capsule PO (17:26)
[2019-11-19] MEDS: RisperiDONE 1 MG Tablet PO (20:01)
[2019-11-19] MEDS: MELATONIN 3 MG TABLET PO (20:01)
[2019-11-19 20:15] VITALS: PULSE 84; RESP 16; O2SAT 95
[2019-11-20 03:36] VITALS: BP 147/77; PULSE 68; RESP 16; TEMP 36.6; O2SAT 95
[2019-11-20] MEDS: Enoxaparin 40 MG/0.4 ML Syringe SC (06:06)
[2019-11-20] MEDS: FLUoxetine 20 MG Capsule 40 MG PO (06:07)
[2019-11-20] MEDS: Amox/Clavulanate 875 MG Tablet PO ×2 (06:07→17:03)
[2019-11-20] MEDS: Lisinopril 10 MG Tablet PO (06:07)
[2019-11-20] MEDS: TRIHEXYPHENIDYL HCL 2 MG TABLET PO ×2 (06:07→17:03)
[2019-11-20] MEDS: lamoTRIgine 100 MG Tablet 200 MG PO (06:07)
[2019-11-20] MEDS: Pantoprazole Sodium 40 MG Tablet PO (06:07)
[2019-11-20] MEDS: busPIRone 5 MG Tablet 10 MG PO ×2 (06:07→17:03)
[2019-11-20] MEDS: amLODIPine 5 MG Tablet PO (06:11)
[2019-11-20] MEDS: Nystatin Powder 15gm Bottle 1 APPLIC TOPICAL ×2 (06:18→19:45)
[2019-11-20] MEDS: Menthol/Lanolin/Calamine/Znox 113 GM Tube 1 APPLIC TOPICAL ×2 (06:18→19:45)
--- NOTE | 2019-11-20 06:19 | NURSING ---
Addendum entered by Jaycee Magallanes 11/20/19 06:23: Old nicotine patch removed from right deltoid and new patch applied to left deltoid. Original Note: Pt was up in restroom without any assist this nurse provided education to patient on the importance of using call light. Pt states, I can do it by myself I don't need any help. Assisted pt back to bed and call light is within reach. Rn made aware.
[2019-11-20] MEDS: Multivitamins,Therapeutic Tablet 1 TABLET PO (07:47)
[2019-11-20 14:10] VITALS: BP 128/65; PULSE 64; RESP 18; TEMP 36.7; O2SAT 91
[2019-11-20] MEDS: Tamsulosin HCl 0.4 MG Capsule PO (17:03)
[2019-11-20] MEDS: RisperiDONE 1 MG Tablet PO (19:44)
[2019-11-20] MEDS: MELATONIN 3 MG TABLET PO (19:44)
[2019-11-21 05:00] VITALS: BP 130/68; PULSE 60; RESP 16; TEMP 36.8; O2SAT 94
[2019-11-21] MEDS: amLODIPine 5 MG Tablet PO (06:16)
[2019-11-21] MEDS: Enoxaparin 40 MG/0.4 ML Syringe SC (06:16)
[2019-11-21] MEDS: Pantoprazole Sodium 40 MG Tablet PO (06:16)
[2019-11-21] MEDS: lamoTRIgine 100 MG Tablet 200 MG PO (06:16)
[2019-11-21] MEDS: Lisinopril 10 MG Tablet PO (06:16)
[2019-11-21] MEDS: TRIHEXYPHENIDYL HCL 2 MG TABLET PO ×2 (06:16→17:31)
[2019-11-21] MEDS: busPIRone 5 MG Tablet 10 MG PO ×2 (06:16→17:31)
[2019-11-21] MEDS: FLUoxetine 20 MG Capsule 40 MG PO (06:16)
[2019-11-21 06:20] LABS: Anion Gap 4 (5-15); BUN 8 mg/dL (7-18); BUN/Creat Ratio 7.3 RATIO (10-20); Calcium,Total 8.9 mg/dL (8.5-10.1); Chloride 110 mmol/L (98-107); Creatinine, Serum 1.09 mg/dL (0.70-1.30); EST Glomerular Filtration Rate 70 mL/min (>60); Est Glom Filt Rate - Afr Amer 85 mL/min (>60); Estimated Creatinine Clearance 40.98 ml/min; Glucose 86 mg/dL (74-106); Potassium 4.3 mmol/L (3.5-5.1); Sodium Level 142 mmol/L (136-145)
[2019-11-21] MEDS: Menthol/Lanolin/Calamine/Znox 113 GM Tube 1 APPLIC TOPICAL ×2 (06:25→20:39)
[2019-11-21] MEDS: Nystatin Powder 15gm Bottle 1 APPLIC TOPICAL ×2 (06:26→20:39)
[2019-11-21] MEDS: Acetaminophen 500 MG Tablet 1000 MG PO (08:34)
[2019-11-21] MEDS: Multivitamins,Therapeutic Tablet 1 TABLET PO (08:34)
[2019-11-21] MEDS: Tamsulosin HCl 0.4 MG Capsule PO (17:31)
[2019-11-21 20:33] VITALS: PULSE 58; RESP 16; O2SAT 94
[2019-11-21] MEDS: MELATONIN 3 MG TABLET PO (20:37)
[2019-11-21] MEDS: RisperiDONE 1 MG Tablet PO (20:37)
[2019-11-22 05:38] LABS: Absolute Lymphocyte Count 2.35 X10^3/uL (0.83-4.51); Absolute Neutrophil Count 7.7 X10^3/uL (2.0-7.7); Basophil# 0.04 X10^3/uL; Basophil% 0.3 % (0-1); Eosinophil# 0.37 X10^3/uL; Eosinophils% 3.2 % (0-5); Hematocrit 32.8 % (40-54); Hemoglobin 10.3 g/dL (13.0-16.5); Lymphocyte # 2.35 X10^3/ul (4.0); Lymphocyte % 20.5 % (19-41); Mean Corp Hgb Conc 31.4 g/dL (32-36); Mean Corpuscular Hgb 28.4 pg (27.0-32.0); Mean Corpuscular Volume 90.4 fL (80-94); Mean Platelet Vol. 10.2 fl (6.2-12.0); Monocyte# 0.97 X10^3/uL; Monocyte% 8.4 % (0-10); NRBC Flagged by Analyzer 0 % (0-5); Neutrophil % 67.2 % (47-70); Platelet Count 370 K/mm3 (150-450); RBC Distribution Width CV 15.1 % (11.6-14.6); RBC Distribution Width SD 49.5 fl (35.1-43.9); Red Blood Count 3.63 M/mm3 (4.6-6.2); White Blood Count 11.5 K/mm3 (4.4-11.0)
[2019-11-22 05:57] LABS: Anion Gap 2 (5-15); BUN 8 mg/dL (7-18); BUN/Creat Ratio 7.7 RATIO (10-20); Calcium,Total 9.1 mg/dL (8.5-10.1); Chloride 112 mmol/L (98-107); Creatinine, Serum 1.04 mg/dL (0.70-1.30); EST Glomerular Filtration Rate 74 mL/min (>60); Est Glom Filt Rate - Afr Amer 90 mL/min (>60); Estimated Creatinine Clearance 42.95 ml/min; Glucose 83 mg/dL (74-106); Potassium 4.3 mmol/L (3.5-5.1); Sodium Level 142 mmol/L (136-145)
[2019-11-22] MEDS: Pantoprazole Sodium 40 MG Tablet PO (06:20)
[2019-11-22] MEDS: Enoxaparin 40 MG/0.4 ML Syringe SC (06:21)
[2019-11-22] MEDS: Menthol/Lanolin/Calamine/Znox 113 GM Tube 1 APPLIC TOPICAL ×2 (06:21→21:54)
[2019-11-22] MEDS: lamoTRIgine 100 MG Tablet 200 MG PO (06:21)
[2019-11-22] MEDS: Lisinopril 10 MG Tablet PO (06:21)
[2019-11-22] MEDS: amLODIPine 5 MG Tablet PO (06:21)
[2019-11-22] MEDS: busPIRone 5 MG Tablet 10 MG PO ×2 (06:21→17:09)
[2019-11-22] MEDS: FLUoxetine 20 MG Capsule 40 MG PO (06:22)
[2019-11-22] MEDS: Nystatin Powder 15gm Bottle 1 APPLIC TOPICAL ×2 (06:22→21:54)
[2019-11-22] MEDS: TRIHEXYPHENIDYL HCL 2 MG TABLET PO ×2 (06:23→17:10)
[2019-11-22 06:31] VITALS: BP 134/68; PULSE 62; RESP 16; TEMP 36.3; O2SAT 94
[2019-11-22] MEDS: Multivitamins,Therapeutic Tablet 1 TABLET PO (08:11)
[2019-11-22] MEDS: Acetaminophen 500 MG Tablet 1000 MG PO (08:13)
[2019-11-22] MEDS: Tuberculin,Purif.prot.deriv. 50 TU/ML Vial 5 ML ID (09:24)
[2019-11-22 11:00] VITALS: PULSE 68; RESP 18; O2SAT 95
--- NOTE | 2019-11-22 13:52 | NURSING ---
family updated on patent.
[2019-11-22 14:05] VITALS: BP 91/54; PULSE 58; RESP 16; TEMP 37.3; O2SAT 92
[2019-11-22 16:41] VITALS: BP 107/61
[2019-11-22] MEDS: Tamsulosin HCl 0.4 MG Capsule PO (17:09)
[2019-11-22] MEDS: MELATONIN 3 MG TABLET PO (21:50)
[2019-11-22] MEDS: RisperiDONE 1 MG Tablet PO (21:50)
[2019-11-23 05:00] VITALS: BP 121/72; PULSE 56; RESP 16; TEMP 36.8; O2SAT 93
[2019-11-23] MEDS: lamoTRIgine 100 MG Tablet 200 MG PO (06:11)
[2019-11-23] MEDS: Lisinopril 10 MG Tablet PO (06:11)
[2019-11-23] MEDS: TRIHEXYPHENIDYL HCL 2 MG TABLET PO ×2 (06:11→18:03)
[2019-11-23] MEDS: busPIRone 5 MG Tablet 10 MG PO ×2 (06:11→18:03)
[2019-11-23] MEDS: amLODIPine 5 MG Tablet PO (06:11)
[2019-11-23] MEDS: FLUoxetine 20 MG Capsule 40 MG PO (06:11)
[2019-11-23] MEDS: Pantoprazole Sodium 40 MG Tablet PO (06:11)
[2019-11-23] MEDS: Menthol/Lanolin/Calamine/Znox 113 GM Tube 1 APPLIC TOPICAL ×2 (06:19→22:07)
[2019-11-23] MEDS: Nystatin Powder 15gm Bottle 1 APPLIC TOPICAL ×2 (06:20→22:07)
--- NOTE | 2019-11-23 07:04 | NURSING ---
new nicotine patch applied to right deltoid old patch removed from left deltoid.
[2019-11-23] MEDS: Multivitamins,Therapeutic Tablet 1 TABLET PO (07:31)
--- NOTE | 2019-11-23 12:59 | CASEMGMT ---
Social Work IDT met with patient and [facility] Natalie Castrejon via conference call. Discussed patient's progress in therapy. Pt is ambulating 200 ft with FWW at CGA to Sheryl, transfers CGA, SBA for bed mobility, poor insight and cognition. Pt requires mod cues for all problem solving and initiation for ADLS and to move on to other tasks. CGA for toilet transfers, Sheryl for clothing management, SBA for UE bathing. St working on swallowing and chewing, still aspirating on puree and honey thick liquid, working on strengthening exercises. Pt on FFWP and removed dentures as they are very loose. Pt on carnation instant breakfast, fortified foods as pt has lost weight. Pt is out of isolation 11/27. Explained Medicare and [facility] insurance. Discussed IDTs strong recommendation to not return home as he is not safe and will not follow swallowing precautions. P considering SNFs - agreeable for SW to refer to in network SNFs. Will continue to follow. Beata Dubon, [employer] ROOMS COORDINATOR
[2019-11-23 13:48] VITALS: BP 106/68; PULSE 58; RESP 14; TEMP 36.8; O2SAT 94
[2019-11-23] MEDS: Tamsulosin HCl 0.4 MG Capsule PO (18:02)
[2019-11-23 21:43] VITALS: PULSE 60; RESP 16; O2SAT 93
[2019-11-23] MEDS: Acetaminophen 500 MG Tablet 1000 MG PO (22:03)
[2019-11-23] MEDS: RisperiDONE 1 MG Tablet PO (22:04)
[2019-11-23] MEDS: MELATONIN 3 MG TABLET PO (22:04)
[2019-11-24 05:00] VITALS: BP 103/57; PULSE 60; RESP 18; TEMP 37; O2SAT 93
[2019-11-24] MEDS: lamoTRIgine 100 MG Tablet 200 MG PO (05:35)
[2019-11-24] MEDS: TRIHEXYPHENIDYL HCL 2 MG TABLET PO ×2 (05:35→17:26)
[2019-11-24] MEDS: amLODIPine 5 MG Tablet PO (05:35)
[2019-11-24] MEDS: Lisinopril 10 MG Tablet PO (05:35)
[2019-11-24] MEDS: FLUoxetine 20 MG Capsule 40 MG PO (05:36)
[2019-11-24] MEDS: Pantoprazole Sodium 40 MG Tablet PO (05:36)
[2019-11-24] MEDS: busPIRone 5 MG Tablet 10 MG PO ×2 (05:36→17:26)
[2019-11-24] MEDS: Menthol/Lanolin/Calamine/Znox 113 GM Tube 1 APPLIC TOPICAL ×2 (05:37→21:13)
[2019-11-24] MEDS: Nystatin Powder 15gm Bottle 1 APPLIC TOPICAL ×2 (05:38→21:13)
--- NOTE | 2019-11-24 05:43 | NURSING ---
new nicotine patch applied to left deltoid.
[2019-11-24] MEDS: Multivitamins,Therapeutic Tablet 1 TABLET PO (07:54)
--- NOTE | 2019-11-24 08:00 | MDS.RN ---
Information for the mds was obtained from review of the clinical record, interview of resident, staff, and direct observation of resident's care.
[2019-11-24 09:15] VITALS: PULSE 64; RESP 16; O2SAT 93
[2019-11-24 13:34] VITALS: BP 114/72; PULSE 61; RESP 16; TEMP 36.4; O2SAT 96
[2019-11-24] MEDS: Tamsulosin HCl 0.4 MG Capsule PO (17:26)
[2019-11-24] MEDS: RisperiDONE 1 MG Tablet PO (21:12)
[2019-11-24] MEDS: MELATONIN 3 MG TABLET PO (21:12)
[2019-11-25] MEDS: Pantoprazole Sodium 40 MG Tablet PO (04:48)
[2019-11-25] MEDS: FLUoxetine 20 MG Capsule 60 MG PO (04:48)
[2019-11-25] MEDS: Lisinopril 10 MG Tablet PO (04:48)
[2019-11-25] MEDS: busPIRone 5 MG Tablet 10 MG PO ×2 (04:48→17:53)
[2019-11-25] MEDS: TRIHEXYPHENIDYL HCL 2 MG TABLET PO ×2 (04:48→17:52)
[2019-11-25] MEDS: lamoTRIgine 100 MG Tablet 200 MG PO (04:48)
[2019-11-25] MEDS: amLODIPine 5 MG Tablet PO (04:48)
[2019-11-25] MEDS: Acetaminophen 500 MG Tablet 1000 MG PO (04:53)
[2019-11-25] MEDS: Menthol/Lanolin/Calamine/Znox 113 GM Tube 1 APPLIC TOPICAL ×2 (05:00→21:29)
[2019-11-25] MEDS: Nystatin Powder 15gm Bottle 1 APPLIC TOPICAL ×2 (05:01→21:30)
--- NOTE | 2019-11-25 05:02 | NURSING ---
New Nicotine patch placed on Right Deltoid. Old patch was removed from Left Deltoid.
[2019-11-25 06:06] VITALS: BP 115/88; PULSE 54; RESP 16; TEMP 36.9; O2SAT 93
[2019-11-25] MEDS: Multivitamins,Therapeutic Tablet 1 TABLET PO (07:49)
[2019-11-25 08:53] LABS: Absolute Lymphocyte Count 2.71 X10^3/uL (0.83-4.51); Absolute Neutrophil Count 5.5 X10^3/uL (2.0-7.7); Basophil# 0.06 X10^3/uL; Basophil% 0.6 % (0-1); Eosinophil# 0.27 X10^3/uL; Eosinophils% 2.9 % (0-5); Hematocrit 38.1 % (40-54); Lymphocyte # 2.71 X10^3/ul (4.0); Lymphocyte % 29.2 % (19-41); Mean Corp Hgb Conc 31.5 g/dL (32-36); Mean Corpuscular Hgb 28.8 pg (27.0-32.0); Mean Corpuscular Volume 91.4 fL (80-94); Mean Platelet Vol. 9.7 fl (6.2-12.0); Monocyte# 0.72 X10^3/uL; Monocyte% 7.8 % (0-10); NRBC Flagged by Analyzer 0 % (0-5); Neutrophil # 5.48 X10^3/uL (2.7-7.7); Neutrophil % 59.1 % (47-70); Platelet Count 446 K/mm3 (150-450); RBC Distribution Width CV 15.1 % (11.6-14.6); RBC Distribution Width SD 50.4 fl (35.1-43.9); Red Blood Count 4.17 M/mm3 (4.6-6.2); White Blood Count 9.3 K/mm3 (4.4-11.0)
[2019-11-25 09:10] LABS: Anion Gap 7 (5-15); BUN 10 mg/dL (7-18); BUN/Creat Ratio 8.2 RATIO (10-20); Calcium,Total 9.1 mg/dL (8.5-10.1); Chloride 108 mmol/L (98-107); Creatinine, Serum 1.22 mg/dL (0.70-1.30); EST Glomerular Filtration Rate 62 mL/min (>60); Est Glom Filt Rate - Afr Amer 75 mL/min (>60); Estimated Creatinine Clearance 35.85 ml/min; Glucose 99 mg/dL (74-106); Potassium 4.6 mmol/L (3.5-5.1); Sodium Level 139 mmol/L (136-145)
--- NOTE | 2019-11-25 09:10 | RAD_ITS ---
STUDY: X-RAY - ABDOMEN/PELVIS REASON FOR EXAM: Male, 73 years old. ABDOMINAL PAIN, SEPSIS SECONDARY TO PNEUMONIA TECHNIQUE: Single AP view of the abdomen / pelvis. COMPARISON: Comparison is made with prior study dated 11/15/2019. FINDINGS: Normal visualized lung bases. There is an unremarkable bowel gas pattern. Surgical clips are seen in the right lower quadrant. This is unchanged. Stable 3.8 mm calculus in the lower pole THE LEFT KIDNEY. Normal soft tissue structures. Status post intramedullary johann and screw fixation of the left intertrochanteric fracture. RAD/Abdomen Single View IMPRESSION: No acute abnormality is seen. Electronically Signed: Tigre Borden, at 11:10 EDT , Service support ,
[2019-11-25 10:38] LABS: Mucous, Urine 0 SEEN /hpf (<or=2+); Red Blood Cells-Urine 0 SEEN /hpf (0-5)
[2019-11-25 10:40] LABS: Color, Urine Yellow (Yellow); Glucose, Dipstick Normal (Normal); Ketone-Dipstick Negative (Negative); Leukocyte Esterase-Dipstick Negative /ul (Negative); Nitrite-Dipstick Negative (Negative); Occult Blood-Urine Negative /ul (Negative); Protein-Dipstick Negative (Negative); Urine Bilirubin Dipstick Negative (Negative); Urine Clarity Clear (Clear); Urine Urobilinogen Normal (Normal)
[2019-11-25 10:46] LABS: Bacteria RARE /hpf (None Seen); Hyaline Cast 0-5 SEEN /lpf (0-5); Squamous Epithelial Cells - UA 0-5 SEEN /hpf (0-5); White Blood Cells 0-5 SEEN /hpf (0-5)
[2019-11-25 13:39] VITALS: BP 114/72; PULSE 68; RESP 14; TEMP 25.3; O2SAT 95
[2019-11-25] MEDS: Tamsulosin HCl 0.4 MG Capsule PO (17:53)
[2019-11-25] MEDS: MELATONIN 3 MG TABLET PO (21:29)
[2019-11-25] MEDS: RisperiDONE 1 MG Tablet PO (21:30)
[2019-11-26 05:00] VITALS: BP 119/79; PULSE 61; RESP 16; TEMP 36.8; O2SAT 92
[2019-11-26] MEDS: busPIRone 5 MG Tablet 10 MG PO ×2 (06:12→17:54)
[2019-11-26] MEDS: Pantoprazole Sodium 40 MG Tablet PO (06:12)
[2019-11-26] MEDS: Lisinopril 10 MG Tablet PO (06:12)
[2019-11-26] MEDS: lamoTRIgine 100 MG Tablet 200 MG PO (06:12)
[2019-11-26] MEDS: FLUoxetine 20 MG Capsule 60 MG PO (06:12)
[2019-11-26] MEDS: amLODIPine 5 MG Tablet PO (06:12)
[2019-11-26] MEDS: TRIHEXYPHENIDYL HCL 2 MG TABLET PO ×2 (06:15→17:54)
[2019-11-26] MEDS: Menthol/Lanolin/Calamine/Znox 113 GM Tube 1 APPLIC TOPICAL ×2 (06:20→21:00)
[2019-11-26] MEDS: Nystatin Powder 15gm Bottle 1 APPLIC TOPICAL ×2 (06:20→21:08)
--- NOTE | 2019-11-26 06:20 | NURSING ---
nicotine patch to lt delt.
[2019-11-26] MEDS: Multivitamins,Therapeutic Tablet 1 TABLET PO (08:59)
[2019-11-26] MEDS: Acetaminophen 500 MG Tablet 1000 MG PO (09:03)
[2019-11-26 09:50] VITALS: PULSE 58; RESP 18; O2SAT 92
[2019-11-26 14:08] VITALS: BP 90/59; PULSE 62; RESP 14; TEMP 36.3; O2SAT 93
--- NOTE | 2019-11-26 16:26 | NURSING ---
nicotine patch to left delt verified.
[2019-11-26] MEDS: Tamsulosin HCl 0.4 MG Capsule PO (17:54)
[2019-11-26] MEDS: MELATONIN 3 MG TABLET PO (21:01)
[2019-11-26] MEDS: RisperiDONE 1 MG Tablet PO (21:03)
[2019-11-27 05:00] VITALS: BP 97/67; PULSE 52; RESP 18; TEMP 36.8; O2SAT 90
[2019-11-27] MEDS: lamoTRIgine 100 MG Tablet 200 MG PO (05:26)
[2019-11-27] MEDS: busPIRone 5 MG Tablet 10 MG PO ×2 (05:26→17:16)
[2019-11-27] MEDS: FLUoxetine 20 MG Capsule 60 MG PO (05:26)
[2019-11-27] MEDS: Lisinopril 10 MG Tablet PO (05:27)
[2019-11-27] MEDS: amLODIPine 5 MG Tablet PO (05:27)
[2019-11-27] MEDS: Pantoprazole Sodium 40 MG Tablet PO (05:27)
[2019-11-27] MEDS: TRIHEXYPHENIDYL HCL 2 MG TABLET PO ×2 (05:27→17:16)
[2019-11-27] MEDS: Menthol/Lanolin/Calamine/Znox 113 GM Tube 1 APPLIC TOPICAL ×2 (05:28→21:12)
[2019-11-27] MEDS: Nystatin Powder 15gm Bottle 1 APPLIC TOPICAL ×2 (05:28→21:11)
--- NOTE | 2019-11-27 05:29 | NURSING ---
nicotine patch rt delt
[2019-11-27] MEDS: Multivitamins,Therapeutic Tablet 1 TABLET PO (08:47)
[2019-11-27 13:58] VITALS: BP 99/44; PULSE 64; RESP 16; TEMP 36.4; O2SAT 93
[2019-11-27] MEDS: Tamsulosin HCl 0.4 MG Capsule PO (17:16)
[2019-11-27] MEDS: MELATONIN 3 MG TABLET PO (21:09)
[2019-11-27] MEDS: RisperiDONE 1 MG Tablet PO (21:09)
[2019-11-27] MEDS: Loperamide 2 MG Capsule PO (21:09)
[2019-11-28 05:00] VITALS: BP 97/68; PULSE 50; RESP 18; TEMP 36.6; O2SAT 91
[2019-11-28] MEDS: FLUoxetine 20 MG Capsule 60 MG PO (06:43)
[2019-11-28] MEDS: busPIRone 5 MG Tablet 10 MG PO ×2 (06:43→17:15)
[2019-11-28] MEDS: Pantoprazole Sodium 40 MG Tablet PO (06:44)
[2019-11-28] MEDS: lamoTRIgine 100 MG Tablet 200 MG PO (06:44)
[2019-11-28] MEDS: amLODIPine 5 MG Tablet PO (06:44)
[2019-11-28] MEDS: Lisinopril 10 MG Tablet PO (06:44)
[2019-11-28] MEDS: TRIHEXYPHENIDYL HCL 2 MG TABLET PO ×2 (06:44→17:15)
[2019-11-28] MEDS: Menthol/Lanolin/Calamine/Znox 113 GM Tube 1 APPLIC TOPICAL ×2 (06:48→20:13)
[2019-11-28] MEDS: Nystatin Powder 15gm Bottle 1 APPLIC TOPICAL ×2 (06:50→20:12)
--- NOTE | 2019-11-28 06:53 | NURSING ---
removed nicotine patch on rt delt and applied new to lt.
[2019-11-28] MEDS: Multivitamins,Therapeutic Tablet 1 TABLET PO (07:47)
[2019-11-28 10:00] VITALS: PULSE 64; RESP 16; O2SAT 96
--- NOTE | 2019-11-28 10:46 | NURSING ---
Patient returned from appt with Pulmonology. Received order for PFT as pulmonology suspect COPD, and pt is to F/U after PFT.
[2019-11-28 13:28] VITALS: BP 123/66; PULSE 68; RESP 16; TEMP 36.3; O2SAT 95
--- NOTE | 2019-11-28 15:30 | CASEMGMT ---
Addendum entered by Beata Dubon 11/29/19 13:22: W/C Transport scheduled for 11 am. PASRR completed. Original Note: Social Work Spoke with pt whom is agreeable to transfer to [facility]. Pt could benefit from further therapy and pt's 21st day is 12/03 and secondary is [facility]. Will schedule transport. Plan: DC 12/03 to [facility]. Beata Dubon, STRATEGIC PLANNING SPECIALIST DIRECT CARE PROVIDER
[2019-11-28] MEDS: Tamsulosin HCl 0.4 MG Capsule PO (17:15)
[2019-11-28] MEDS: MELATONIN 3 MG TABLET PO (20:07)
[2019-11-28] MEDS: Acetaminophen 500 MG Tablet 1000 MG PO (20:07)
[2019-11-28] MEDS: RisperiDONE 1 MG Tablet PO (20:08)
[2019-11-29] MEDS: FLUoxetine 20 MG Capsule 60 MG PO (05:23)
[2019-11-29] MEDS: amLODIPine 5 MG Tablet PO (05:23)
[2019-11-29] MEDS: busPIRone 5 MG Tablet 10 MG PO ×2 (05:23→17:20)
[2019-11-29] MEDS: Pantoprazole Sodium 40 MG Tablet PO (05:23)
[2019-11-29] MEDS: lamoTRIgine 100 MG Tablet 200 MG PO (05:24)
[2019-11-29] MEDS: Lisinopril 10 MG Tablet PO (05:24)
[2019-11-29] MEDS: TRIHEXYPHENIDYL HCL 2 MG TABLET PO ×2 (05:24→17:20)
[2019-11-29] MEDS: Nystatin Powder 15gm Bottle 1 APPLIC TOPICAL ×2 (05:27→20:30)
[2019-11-29] MEDS: Menthol/Lanolin/Calamine/Znox 113 GM Tube 1 APPLIC TOPICAL ×2 (05:27→20:31)
[2019-11-29 05:30] VITALS: BP 130/73; PULSE 51; RESP 16; TEMP 36.5; O2SAT 94
[2019-11-29 05:36] LABS: Absolute Neutrophil Count 3.3 X10^3/uL (2.0-7.7); Basophil# 0.04 X10^3/uL; Basophil% 0.5 % (0-1); Eosinophil# 0.44 X10^3/uL; Eosinophils% 5.9 % (0-5); Hematocrit 34.2 % (40-54); Hemoglobin 10.9 g/dL (13.0-16.5); Lymphocyte % 38.8 % (19-41); Mean Corp Hgb Conc 31.9 g/dL (32-36); Mean Corpuscular Hgb 28.5 pg (27.0-32.0); Mean Corpuscular Volume 89.5 fL (80-94); Mean Platelet Vol. 9.8 fl (6.2-12.0); Monocyte# 0.74 X10^3/uL; Monocyte% 9.9 % (0-10); NRBC Flagged by Analyzer 0 % (0-5); Neutrophil # 3.34 X10^3/uL (2.7-7.7); Neutrophil % 44.6 % (47-70); Platelet Count 393 K/mm3 (150-450); RBC Distribution Width CV 14.8 % (11.6-14.6); RBC Distribution Width SD 48.1 fl (35.1-43.9); Red Blood Count 3.82 M/mm3 (4.6-6.2); White Blood Count 7.5 K/mm3 (4.4-11.0)
[2019-11-29 05:55] LABS: Anion Gap 6 (5-15); BUN 10 mg/dL (7-18); BUN/Creat Ratio 8.5 RATIO (10-20); Calcium,Total 8.8 mg/dL (8.5-10.1); Chloride 106 mmol/L (98-107); Creatinine, Serum 1.17 mg/dL (0.70-1.30); EST Glomerular Filtration Rate 65 mL/min (>60); Est Glom Filt Rate - Afr Amer 78 mL/min (>60); Estimated Creatinine Clearance 37.38 ml/min; Glucose 76 mg/dL (74-106); Sodium Level 138 mmol/L (136-145)
[2019-11-29] MEDS: Multivitamins,Therapeutic Tablet 1 TABLET PO (08:03)
[2019-11-29 13:37] VITALS: TEMP 36.7
--- NOTE | 2019-11-29 16:02 | NURSING ---
patent stated he didnt want this nurse to up date any one. also verified nicotine patch to right delt.
[2019-11-29] MEDS: Tamsulosin HCl 0.4 MG Capsule PO (17:20)
[2019-11-29] MEDS: Furosemide 40 MG Tablet PO (18:18)
[2019-11-29 20:15] VITALS: PULSE 64; RESP 16; O2SAT 94
[2019-11-29] MEDS: MELATONIN 3 MG TABLET PO (20:28)
[2019-11-29] MEDS: RisperiDONE 1 MG Tablet PO (20:29)
--- NOTE | 2019-11-29 21:16 | DCINST_ITS ---
- Discharge Diagnoses Current Active Problems: Current Active and Chronic Problems (Last Reviewed 11/28/19 @ 08:34 by ROMEO Garber) Dehydration (Acute) Aspiration pneumonia (Acute) Encephalopathy (Acute) Acute kidney injury (Acute) Insomnia (Chronic) BPH (benign prostatic hyperplasia) (Chronic) Appetite loss (Chronic) Osteoporosis (Chronic) You will use the following diet at home:: Regular Your food should be the consistency of: Puree Your liquids should be the consistency of: Honey Thick Discharge Activity: Return to Normal Activity, May Shower, Use Walker Weight Bearing Status: Weight bearing as tolerated Call your doctor if you observe: Fever of 101 or Higher, Inability to urinate, Inability to have a bowel movement, Shortness of breath, Chest pain, Uncontrolled pain Allergies/Adverse Reactions: Allergies bupropion HCl [From Wellbutrin] Allergy (Verified 11/28/19 08:25) SHAKING quetiapine fumarate [From Seroquel] Allergy (Verified 11/28/19 08:25) Unknown trazodone Adverse Reaction (Verified 11/28/19 08:25) SHAKING Medications to take at Discharge Buspirone HCl 10 mg PO BID 08/10/19 Lamotrigine [Lamictal] 200 mg PO DAILY 08/10/19 Omeprazole 40 mg PO DAILY 08/10/19 Trihexyphenidyl HCl 2 mg PO BID 08/10/19 fluoxetine 40 mg capsule 40 mg PO DAILY #90 cap 09/21/19 lisinopril 10 mg tablet 10 mg PO DAILY #30 tab 10/12/19 Melatonin 3 mg PO QHS 11/11/19 Tamsulosin HCl 0.4 mg PO DAILY@1730 11/11/19 Amlodipine Besylate [Norvasc] 5 mg PO DAILY #30 tab 11/14/19 Benzonatate [Tessalon Perle] 100 mg PO TID PRN PRN cap 11/14/19 Nicotine [Nicoderm Cq] 7 mg TRANSDERM. DAILY 11/14/19 Risperidone [Risperdal] 1 mg PO QHS 11/14/19 Acetaminophen [Tylenol] 1,000 mg PO Q6H PRN PRN tab 11/29/19 Lactobacillus Acidophilus [Acidophilus] 1 tab PO BID tab 11/29/19 Menthol/Lanolin/Calamine/Znox [Calmoseptine Ointment] 1 applic TOPICAL 0600,2200 tube 11/29/19 Nystatin Powder [Mycostatin Powder] 1 applic TOPICAL 0600,2200 bottle 11/29/19 Potassium Chloride [K-Dur] 20 meq PO BIDCM tab 11/29/19 Primary Care Physician: Jhonatan Zapien MD [Primary Care Provider] - Please follow up with your Primary Care Physician in: 1 week. Test Results: Test results from this visit will be discussed in further detail at your follow- up appointment, if applicable. Please Follow Up With: Deisi Posey CNP When: 2 weeks. Please Follow Up With: PFT test When: 2 weeks. Proposed Discharge Date: 12/04/19
--- NOTE | 2019-11-29 21:17 | DS.PCM_ITS ---
Discharge Date and Diagnosis - Problem List Patient Problems: Active and Suspected Problems (Last Reviewed 11/28/19 @ 08:34 by ROMEO Garber) Dehydration (Acute) Aspiration pneumonia (Acute) Encephalopathy (Acute) Acute kidney injury (Acute) Date of Admission: 11/14/19 Date of Discharge: 12/04/19 - Primary Discharge Diagnosis Acute Problems: Active Problems (Last Reviewed 11/28/19 @ 08:34 by ROMEO Garber) Dehydration (Acute) Aspiration pneumonia (Acute) Encephalopathy (Acute) Acute kidney injury (Acute) - Secondary Discharge Diagnosis Chronic Problems: Chronic Problems (Last Reviewed 11/28/19 @ 08:34 by ROMOE Garber) Insomnia (Chronic) BPH (benign prostatic hyperplasia) (Chronic) Appetite loss (Chronic) Osteoporosis (Chronic) Anxiety (Chronic) Dizziness (Chronic) History of kidney stones (Chronic) IBS (irritable bowel syndrome) (Chronic) GERD (gastroesophageal reflux disease) (Chronic) Depression (Chronic) Anemia (Chronic) Hypertension (Chronic) Chronic obstructive pulmonary disease (COPD) (Chronic) Wernicke encephalopathy (Chronic) Alcohol abuse (Chronic) Seizure disorder (Chronic) Tobacco abuse (Chronic) Hospital Course and Treatment Imaging Results: 11/14/19 19:42 Diet: Regular Diet Food consistency:: Puree Liquid Consistency:: Honey Thick Type of Dietary Supplement:: Casey Breakfast Is pt able to select menu?: Yes Diet Comments: Supervised feed Clinical Impression(s) from Imaging Studies KUB X-Ray 11/25/19 09:10 IMPRESSION: No acute abnormality is seen. Electronically Signed: Tigre Borden, at 11:10 EDT , Service support , Labs (Last 48 Hours) 11/29/19 11/29/19 05:05 05:05 WBC 7.5 RBC 3.82 L Hgb 10.9 L Hct 34.2 L MCV 89.5 MCH 28.5 MCHC 31.9 L RDW Std Deviation 48.1 H RDW Coeff of Dariela 14.8 H Plt Count 393 MPV 9.8 Immature Gran % (Auto) 0.300 Neut % (Auto) 44.6 L Lymph % (Auto) 38.8 [place] % (Auto) 9.9 Eos % (Auto) 5.9 H Baso % (Auto) 0.5 Absolute Neuts (auto) 3.3 Absolute Lymphs (auto) 2.90 Nucleated RBC % 0 Sodium 138 Potassium 5.0 Chloride 106 Carbon Dioxide 26.0 Anion Gap 6 BUN 10 Creatinine 1.17 Estim Creat Clear Calc 37.38 Est GFR (MDRD) Af Amer 78 Est GFR (MDRD) Non-Af 65 BUN/Creatinine Ratio 8.5 L Glucose 76 Calcium 8.8 Operations: None Procedures: None Summary of Care Provided: The patient is a 73 year old Male with below past medical history hospitalized for aspiration pneumonia, COVID-19 ruled out, complicated by acute kidney injury, dehydration, alcohol withdrawal, dysphagia, admitted to TCU with debility, here for rehabilitation, strengthening, prior to discharge home with girlfriend. Discharge to [facility]. Patient Problems: Active and Suspected Problems (Last Reviewed 11/28/19 @ 08:34 by Diana Posey NP-C) Dehydration (Acute) Aspiration pneumonia (Acute) Encephalopathy (Acute) Acute kidney injury (Acute) - Physical Exam Vitals/I&O's: Vital Signs Temp Pulse Resp BP Pulse Ox 98.1 F 64 16 130/73 H 94 11/29/19 13:37 11/29/19 20:15 11/29/19 20:15 11/29/19 05:30 11/29/19 20:15 Oxygen Delivery Method Room Air Weight: 49.986 kg Body Mass Index (BMI) 16.5 Finger Stick Blood Glucose 122 Intake and Output for Last 24 Hours 11/27/19 11/28/19 11/29/19 23:59 23:59 23:59 Intake Total 520 / 520 480 / 480 360 / 360 Output Total 300 / 300 Balance 520 / 520 480 / 480 60 / 60 Microbiology Past 72 Hours 11/25/19 10:30 Urine, Clean Catch Urine Culture - Final Culture exhibits no growth. Laboratory Results 11/29/19 05:05: WBC 7.5, RBC 3.82 L, Hgb 10.9 L, Hct 34.2 L, MCV 89.5, MCH 28.5, MCHC 31.9 L, RDW Std Deviation 48.1 H, RDW Coeff of Dariela 14.8 H, Plt Count 393, MPV 9.8, Immature Gran % (Auto) 0.300, Neut % (Auto) 44.6 L, Lymph % (Auto) 38.8, [place] % (Auto) 9.9, Eos % (Auto) 5.9 H, Baso % (Auto) 0.5, Absolute Neuts (auto) 3.3, Absolute Lymphs (auto) 2.90, Nucleated RBC % 0 11/29/19 05:05: Sodium 138, Potassium 5.0, Chloride 106, Carbon Dioxide 26.0, Anion Gap 6, BUN 10, Creatinine 1.17, Estim Creat Clear Calc 37.38, Est GFR (MDRD) Af Amer 78, Est GFR (MDRD) Non-Af 65, BUN/Creatinine Ratio 8.5 L, Glucose 76, Calcium 8.8 Current Medications Acetaminophen (Tylenol) 1,000 mg PO Q6H PRN PRN PRN Reason: Pain Score 1-10 Last Admin: 11/28/19 20:07 Dose: 1,000 mg Documented by: Amlodipine Besylate (Norvasc) 5 mg PO DAILY [facility] Last Admin: 11/29/19 05:23 Dose: 5 mg Documented by: Benzonatate (Tessalon Perle) 100 mg PO TID PRN PRN PRN Reason: COUGH Buspirone HCl (Buspar) 10 mg PO BID [facility] Last Admin: 11/29/19 17:20 Dose: 10 mg Documented by: Calamine/Phenol (Calmoseptine Ointment) 1 applic TOPICAL 0600,2200 [facility]; Protocol Last Admin: 11/29/19 20:31 Dose: 1 applicatio Documented by: Fluoxetine HCl (Prozac) 60 mg PO DAILY [facility] Last Admin: 11/29/19 05:23 Dose: 60 mg Documented by: Furosemide (Lasix) 40 mg PO BID@1000,1800 [facility] Stop: 12/04/19 18:01 Last Admin: 11/29/19 18:18 Dose: 40 mg Documented by: Lactobacillus Acidophilus (Acidophilus) 1 tablet PO BID [facility] Last Admin: 11/29/19 17:20 Dose: 1 tablet Documented by: Lamotrigine (Lamictal) 200 mg PO DAILY [facility] Last Admin: 11/29/19 05:24 Dose: 200 mg Documented by: Lisinopril (Zestril) 10 mg PO DAILY [facility] Last Admin: 11/29/19 05:24 Dose: 10 mg Documented by: Loperamide HCl (Imodium) 2 mg PO Q2H PRN PRN PRN Reason: Diarrhea Last Admin: 11/27/19 21:09 Dose: 2 mg Documented by: Melatonin (Melatonin) 3 mg PO QHS [facility] Last Admin: 11/29/19 20:28 Dose: 3 mg Documented by: Multivitamins (Multivitamin) 1 tablet PO DAILY@0800 [facility] Last Admin: 11/29/19 08:03 Dose: 1 tablet Documented by: Nicotine (Nicoderm Cq (Pbkc)) 7 mg TRANSDERM. DAILY [facility] Last Admin: 11/29/19 05:24 Dose: 7 mg Documented by: Nystatin (Mycostatin Powder) 1 applic TOPICAL 0600,2200 [facility]; Protocol Last Admin: 11/29/19 20:30 Dose: 1 applicatio Documented by: Pantoprazole Sodium (Protonix) 40 mg PO DAILY [facility] Last Admin: 11/29/19 05:23 Dose: 40 mg Documented by: [facility] Admin: 11/29/19 17:20 Dose: 20 meq Documented by: Risperidone (Risperdal) 1 mg PO QHS [facility] Last Admin: 11/29/19 20:29 Dose: 1 mg Documented by: Tamsulosin HCl (Flomax) 0.4 mg PO DAILY@1730 [facility] Last Admin: 11/29/19 17:20 Dose: 0.4 mg Documented by: Trihexyphenidyl HCl (Trihexyphenidyl Hcl) 2 mg PO BID [facility] Last Admin: 11/29/19 17:20 Dose: 2 mg Documented by: Discharge Diet: No Restrictions Discharge Activity: Return to Normal Activity, May Shower, Use Walker Weight Bearing Status: Weight bearing as tolerated Call your doctor if you observe: Fever of 101 or Higher, Inability to urinate, Inability to have a bowel movement, Shortness of breath, Chest pain, Uncontrolled pain Home Medications: Medications to take at Discharge Buspirone HCl 10 mg PO BID 08/10/19 Lamotrigine [Lamictal] 200 mg PO DAILY 08/10/19 Omeprazole 40 mg PO DAILY 08/10/19 Trihexyphenidyl HCl 2 mg PO BID 08/10/19 fluoxetine 40 mg capsule 40 mg PO DAILY #90 cap 09/21/19 lisinopril 10 mg tablet 10 mg PO DAILY #30 tab 10/12/19 Melatonin 3 mg PO QHS 11/11/19 Tamsulosin HCl 0.4 mg PO DAILY@1730 11/11/19 Amlodipine Besylate [Norvasc] 5 mg PO DAILY #30 tab 11/14/19 Benzonatate [Tessalon Perle] 100 mg PO TID PRN PRN cap 11/14/19 Nicotine [Nicoderm Cq] 7 mg TRANSDERM. DAILY 11/14/19 Risperidone [Risperdal] 1 mg PO QHS 11/14/19 Acetaminophen [Tylenol] 1,000 mg PO Q6H PRN PRN tab 11/29/19 Lactobacillus Acidophilus [Acidophilus] 1 tab PO BID tab 11/29/19 Menthol/Lanolin/Calamine/Znox [Calmoseptine Ointment] 1 applic TOPICAL 0600,2200 tube 11/29/19 Nystatin Powder [Mycostatin Powder] 1 applic TOPICAL 0600,2200 bottle 11/29/19 Potassium Chloride [K-Dur] 20 meq PO BIDCM tab 11/29/19 Primary Care Physician: Jhonatan Zapien MD [Primary Care Provider] - Please follow up with your Primary Care Physician in: 1 week. Please Follow Up With: Deisi Poesy CNP When: 2 weeks. Please Follow Up With: PFT test When: 2 weeks. Disposition: Nursing Home facility Minutes spent on discharge:: 35 Patient Condition:: Stable Medical Necessity - Tobacco Use Smoking Status: Current every day smoker Tobacco Use: Cigarettes Meaningful Use Info Meaningful Use Diagnoses (Choose all that apply): None applicable
--- NOTE | 2019-11-29 21:19 | TREXTCAR_ITS ---
- Diet 11/14/19 19:42 Diet: Regular Diet Food consistency:: Puree Liquid Consistency:: Honey Thick Type of Dietary Supplement:: Bethel Breakfast Is pt able to select menu?: Yes Diet Comments: Supervised feed - Routine Orders/Code Status Suppository Type: Dulcolax 10mg Suppository Frequency: Daily PRN Code Status: DNRCC - Therapies Weight Bearing: Weight bearing as tolerated Extremity Affected:: Bilateral Lower Physical Therapy: Eval and Treat Occupational Therapy: Eval and Treat Speech Therapy: Eval and Treat - Problem/Diagnosis (1) Dehydration Status: Acute Current Visit: Yes (2) Aspiration pneumonia Status: Acute Current Visit: Yes (3) Encephalopathy Status: Acute Current Visit: Yes (4) Acute kidney injury Status: Acute Current Visit: Yes (5) Insomnia Status: Chronic Current Visit: Yes (6) BPH (benign prostatic hyperplasia) Status: Chronic Current Visit: Yes (7) Appetite loss Status: Chronic Current Visit: Yes (8) Osteoporosis Status: Chronic Current Visit: Yes (9) Fall Status: Acute Current Visit: No (10) Debility Status: Acute Current Visit: No (11) Anxiety Status: Chronic Current Visit: No (12) IBS (irritable bowel syndrome) Status: Chronic Current Visit: No (13) GERD (gastroesophageal reflux disease) Status: Chronic Current Visit: No (14) Depression Status: Chronic Current Visit: No (15) Hypertension Status: Chronic Current Visit: No (16) Alcohol abuse Status: Chronic Current Visit: No - Allergies/Procedures Done in Hospital Allergies/Adverse Reactions: Allergies bupropion HCl [From Wellbutrin] Allergy (Verified 11/28/19 08:25) SHAKING quetiapine fumarate [From Seroquel] Allergy (Verified 11/28/19 08:25) Unknown trazodone Adverse Reaction (Verified 11/28/19 08:25) SHAKING - Type of Care/Length of Stay Estimated LOS: Convalescent Care Less Than 30 days Type of Care Needed: Skilled Rehab Potential: Fair Prognosis: Fair - Additional Orders/Day of Discharge Day of Discharge: 12/04/19 - Dietary and Speech Recommendations Dietitian Recommendations/Changes: Continue Regular diet with texture/consistency as per BUSINESS LIAISON OFFICER. Continue carnation instant breakfast with meals. Will discontiue ensure enlive w/ medpass d/t consistent refusals. Will provide fortified foods w/ meals to help increase nutritional density of foods consumed. - Follow Up Care Primary Care Physician: Jhonatan Zapien MD [Primary Care Provider] - Please follow up with your Primary Care Physician in: 1 week. Please Follow Up With: Deisi Posey CNP When: 2 weeks. Please Follow Up With: PFT test When: 2 weeks.
--- NOTE | 2019-11-29 22:43 | NURSING ---
nicotine patch verified to right deltoid.
[2019-11-30 05:00] VITALS: BP 107/68; PULSE 64; RESP 16; TEMP 36.6; O2SAT 94
[2019-11-30] MEDS: FLUoxetine 20 MG Capsule 60 MG PO (05:03)
[2019-11-30] MEDS: amLODIPine 5 MG Tablet PO (05:04)
[2019-11-30] MEDS: busPIRone 5 MG Tablet 10 MG PO ×2 (05:04→17:21)
[2019-11-30] MEDS: TRIHEXYPHENIDYL HCL 2 MG TABLET PO ×2 (05:04→17:21)
[2019-11-30] MEDS: lamoTRIgine 100 MG Tablet 200 MG PO (05:04)
[2019-11-30] MEDS: Pantoprazole Sodium 40 MG Tablet PO (05:04)
[2019-11-30] MEDS: Lisinopril 10 MG Tablet PO (05:05)
[2019-11-30] MEDS: Nystatin Powder 15gm Bottle 1 APPLIC TOPICAL ×2 (05:06→20:09)
[2019-11-30] MEDS: Menthol/Lanolin/Calamine/Znox 113 GM Tube 1 APPLIC TOPICAL ×2 (05:06→20:10)
[2019-11-30] MEDS: Multivitamins,Therapeutic Tablet 1 TABLET PO (08:31)
[2019-11-30 08:34] VITALS: PULSE 68; RESP 16; O2SAT 91
[2019-11-30] MEDS: Furosemide 40 MG Tablet PO (10:05)
--- NOTE | 2019-11-30 11:24 | CASEMGMT ---
BIMS and PHQ9 interviews completed on this date for MDS assessment. JEFFERSON Dang
[2019-11-30 14:03] VITALS: BP 120/70; PULSE 75; RESP 16; TEMP 36.8; O2SAT 94
[2019-11-30] MEDS: Tamsulosin HCl 0.4 MG Capsule PO (17:21)
[2019-11-30] MEDS: MELATONIN 3 MG TABLET PO (20:02)
[2019-11-30] MEDS: RisperiDONE 1 MG Tablet PO (20:02)
--- NOTE | 2019-11-30 22:55 | NURSING ---
nicotine patch verified to left deltoid.
[2019-12-01 05:00] VITALS: BP 110/58; PULSE 60; RESP 16; TEMP 36.9; O2SAT 94
[2019-12-01] MEDS: lamoTRIgine 100 MG Tablet 200 MG PO (06:08)
[2019-12-01] MEDS: TRIHEXYPHENIDYL HCL 2 MG TABLET PO ×2 (06:09→17:23)
[2019-12-01] MEDS: Lisinopril 10 MG Tablet PO (06:09)
[2019-12-01] MEDS: Pantoprazole Sodium 40 MG Tablet PO (06:09)
[2019-12-01] MEDS: amLODIPine 5 MG Tablet PO (06:09)
[2019-12-01] MEDS: FLUoxetine 20 MG Capsule 60 MG PO (06:10)
[2019-12-01] MEDS: busPIRone 5 MG Tablet 10 MG PO ×2 (06:11→17:22)
[2019-12-01] MEDS: Nystatin Powder 15gm Bottle 1 APPLIC TOPICAL ×2 (06:14→19:54)
[2019-12-01] MEDS: Menthol/Lanolin/Calamine/Znox 113 GM Tube 1 APPLIC TOPICAL ×2 (06:14→19:54)
[2019-12-01 06:21] LABS: Anion Gap 7 (5-15); BUN 17 mg/dL (7-18); BUN/Creat Ratio 8.9 RATIO (10-20); Chloride 101 mmol/L (98-107); Creatinine, Serum 1.92 mg/dL (0.70-1.30); EST Glomerular Filtration Rate 37 mL/min (>60); Est Glom Filt Rate - Afr Amer 44 mL/min (>60); Estimated Creatinine Clearance 23.39 ml/min; Glucose 81 mg/dL (74-106); Potassium 4.4 mmol/L (3.5-5.1); Sodium Level 136 mmol/L (136-145)
[2019-12-01] MEDS: Multivitamins,Therapeutic Tablet 1 TABLET PO (07:25)
[2019-12-01] MEDS: 0.9% Normal Saline 1,000 ML 75 ML IV ×2 (08:25→21:53)
[2019-12-01 08:44] VITALS: PULSE 68; RESP 16; O2SAT 91
[2019-12-01 13:33] VITALS: BP 79/48; PULSE 66; RESP 18; TEMP 36.6; O2SAT 92
[2019-12-01 13:40] VITALS: BP 88/52
[2019-12-01 16:51] VITALS: BP 100/60
[2019-12-01] MEDS: Tamsulosin HCl 0.4 MG Capsule PO (17:23)
[2019-12-01] MEDS: MELATONIN 3 MG TABLET PO (19:53)
[2019-12-01] MEDS: RisperiDONE 1 MG Tablet PO (19:54)
[2019-12-02 05:00] VITALS: BP 103/66; PULSE 60; RESP 16; TEMP 36.6; O2SAT 94
[2019-12-02] MEDS: TRIHEXYPHENIDYL HCL 2 MG TABLET PO ×2 (05:19→17:20)
[2019-12-02] MEDS: amLODIPine 5 MG Tablet PO (05:19)
[2019-12-02] MEDS: lamoTRIgine 100 MG Tablet 200 MG PO (05:19)
[2019-12-02] MEDS: busPIRone 5 MG Tablet 10 MG PO ×2 (05:19→17:19)
[2019-12-02] MEDS: FLUoxetine 20 MG Capsule 60 MG PO (05:20)
[2019-12-02] MEDS: Lisinopril 10 MG Tablet PO (05:20)
[2019-12-02] MEDS: Pantoprazole Sodium 40 MG Tablet PO (05:20)
[2019-12-02] MEDS: Nystatin Powder 15gm Bottle 1 APPLIC TOPICAL ×2 (05:24→20:37)
[2019-12-02] MEDS: Menthol/Lanolin/Calamine/Znox 113 GM Tube 1 APPLIC TOPICAL ×2 (05:24→20:36)
[2019-12-02 05:47] LABS: Anion Gap 6 (5-15); BUN 18 mg/dL (7-18); BUN/Creat Ratio 10.3 RATIO (10-20); Calcium,Total 8.7 mg/dL (8.5-10.1); Chloride 109 mmol/L (98-107); Creatinine, Serum 1.75 mg/dL (0.70-1.30); EST Glomerular Filtration Rate 41 mL/min (>60); Est Glom Filt Rate - Afr Amer 49 mL/min (>60); Estimated Creatinine Clearance 25.67 ml/min; Glucose 80 mg/dL (74-106); Potassium 4.8 mmol/L (3.5-5.1); Sodium Level 141 mmol/L (136-145)
[2019-12-02] MEDS: Multivitamins,Therapeutic Tablet 1 TABLET PO (07:40)
--- NOTE | 2019-12-02 08:02 | US_ITS ---
STUDY: RENAL ULTRASOUND - COMPLETE REASON FOR EXAM: Male, 74 years old. ANASTACIO TECHNIQUE: Ultrasound evaluation of the kidneys was performed with real-time and static bahena-scale imaging. COMPARISON: Comparison is made with prior study dated 07/11/2016. FINDINGS: RIGHT KIDNEY: Normal location of the right kidney, which is normal in size. The right kidney measures 10.1 cm x 4.6 cm x 3.9 cm. There is a normal cortex of the right kidney. The renal cortex measures 1.4 cm. 2 cysts are seen in the right kidney. The larger measuring 1.4 cm x 1.5 cm x 1.4 cm. There are no right renal calculi. There is no right hydronephrosis. DISTAL RIGHT URETER: There is non-visualization of the distal right ureter. There is no demonstrated right ureterovesical junction calculus. There is a visualized right ureteral jet. LEFT KIDNEY: Normal location of the left kidney, which is normal in size. The left kidney measures 9.9 cm x 3.8 cm x 4.5 cm. There is a normal cortex of the left kidney. The renal cortex measures 1.3 cm. There is a 1.3 cm x 1.7 cm x 1.3 cm left renal cyst. There is also evidence of a 5 mm taxus in the lower pole calyx of the left kidney. There are no left renal calculi. There is no left hydronephrosis. DISTAL LEFT URETER: There is non-visualization of the distal left ureter. There is no demonstrated left ureterovesical junction calculus. There is a visualized left ureteral jet. BLADDER: The distended urinary bladder has a volume of 109 ml. There is a normal wall thickness of the distended urinary bladder. There is no demonstrated mass within the urinary bladder. There are no demonstrated bladder calculi. US/Kidney and Bladder IMPRESSION: Stable examination. Small bilateral renal cysts. 5 mm nonobstructive calculus in the left kidney. Electronically Signed: Tigre Borden, at 10:58 EDT , Service support ,
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
--- NOTE | 2019-12-02 10:53 | MDS.RN ---
Pain interview for carlos 12/04/19 completed.
[2019-12-02] MEDS: 0.9% Normal Saline 1,000 ML 125 ML IV ×2 (11:05→19:20)
[2019-12-02] MEDS: 0.9% Saline Lock 10 ML Syringe IV (11:05)
[2019-12-02 11:30] VITALS: PULSE 52; RESP 18; O2SAT 92
--- NOTE | 2019-12-02 13:12 | CASEMGMT ---
Social Work Spoke with pt about transfer to [place]. Listened to concerns - answered questions. Explained the reason for transfer due to insurance and needing continued therapy. Showed pictures of SNF to patient. Pt agreeable to transfer. Beata Dubon, STATIC BALANCER SENIOR CLINICAL DATA MANAGER
[2019-12-02 13:34] VITALS: BP 107/64; PULSE 58; RESP 20; TEMP 37.1; O2SAT 95
[2019-12-02] MEDS: Tamsulosin HCl 0.4 MG Capsule PO (17:19)
--- NOTE | 2019-12-02 18:45 | NURSING ---
nicotine patch verified to left delt.
[2019-12-02] MEDS: RisperiDONE 1 MG Tablet PO (20:37)
[2019-12-02] MEDS: MELATONIN 3 MG TABLET PO (20:41)
[2019-12-03 03:19] VITALS: BP 110/69; PULSE 52; RESP 16; TEMP 36.8; O2SAT 90
[2019-12-03] MEDS: 0.9% Normal Saline 1,000 ML 125 ML IV ×3 (03:24→20:13)
[2019-12-03] MEDS: FLUoxetine 20 MG Capsule 60 MG PO (07:00)
[2019-12-03] MEDS: TRIHEXYPHENIDYL HCL 2 MG TABLET PO ×2 (07:01→17:20)
[2019-12-03] MEDS: Lisinopril 10 MG Tablet PO (07:01)
[2019-12-03] MEDS: amLODIPine 5 MG Tablet PO (07:01)
[2019-12-03] MEDS: lamoTRIgine 100 MG Tablet 200 MG PO (07:01)
[2019-12-03] MEDS: Pantoprazole Sodium 40 MG Tablet PO (07:01)
[2019-12-03] MEDS: busPIRone 5 MG Tablet 10 MG PO ×2 (07:02→17:20)
[2019-12-03] MEDS: Menthol/Lanolin/Calamine/Znox 113 GM Tube 1 APPLIC TOPICAL ×2 (07:03→20:23)
[2019-12-03] MEDS: Nystatin Powder 15gm Bottle 1 APPLIC TOPICAL ×2 (07:03→20:23)
--- NOTE | 2019-12-03 07:07 | NURSING ---
nicotine on rt delt
[2019-12-03] MEDS: Multivitamins,Therapeutic Tablet 1 TABLET PO (07:44)
[2019-12-03 08:07] LABS: Anion Gap 7 (5-15); BUN 12 mg/dL (7-18); BUN/Creat Ratio 10.9 RATIO (10-20); Calcium,Total 8.4 mg/dL (8.5-10.1); Chloride 114 mmol/L (98-107); EST Glomerular Filtration Rate 70 mL/min (>60); Est Glom Filt Rate - Afr Amer 84 mL/min (>60); Estimated Creatinine Clearance 40.83 ml/min; Glucose 81 mg/dL (74-106); Potassium 4.1 mmol/L (3.5-5.1); Sodium Level 140 mmol/L (136-145)
[2019-12-03 14:01] VITALS: BP 115/61; PULSE 56; RESP 18; TEMP 36.8; O2SAT 95
[2019-12-03] MEDS: Tamsulosin HCl 0.4 MG Capsule PO (17:20)
[2019-12-03 20:11] VITALS: PULSE 61; RESP 16; O2SAT 95
[2019-12-03] MEDS: RisperiDONE 1 MG Tablet PO (20:16)
[2019-12-03] MEDS: MELATONIN 3 MG TABLET PO (20:16)
[2019-12-04 05:22] VITALS: PULSE 58; RESP 16; O2SAT 96
[2019-12-04 05:41] VITALS: BP 106/65; PULSE 58; RESP 16; TEMP 36.5; O2SAT 96
[2019-12-04] MEDS: amLODIPine 5 MG Tablet PO (06:04)
[2019-12-04] MEDS: Pantoprazole Sodium 40 MG Tablet PO (06:05)
[2019-12-04] MEDS: FLUoxetine 20 MG Capsule 60 MG PO (06:05)
[2019-12-04] MEDS: Lisinopril 10 MG Tablet PO (06:05)
[2019-12-04] MEDS: busPIRone 5 MG Tablet 10 MG PO (06:05)
[2019-12-04] MEDS: lamoTRIgine 100 MG Tablet 200 MG PO (06:05)
[2019-12-04] MEDS: TRIHEXYPHENIDYL HCL 2 MG TABLET PO (06:05)
[2019-12-04] MEDS: Menthol/Lanolin/Calamine/Znox 113 GM Tube 1 APPLIC TOPICAL (06:10)
[2019-12-04] MEDS: Nystatin Powder 15gm Bottle 1 APPLIC TOPICAL (06:10)
--- NOTE | 2019-12-04 06:15 | NURSING ---
This Nurse and [employer] CONSOLE OPERATOR TRACK attempted to shower patient. Patient refused to shower. Patient stated, I can take one at home. IV removed from Right forearm. Nicotine patch removed from right deltoid and New patch placed on left deltoid.
[2019-12-04] MEDS: Multivitamins,Therapeutic Tablet 1 TABLET PO (07:31)
== END 2019-12-04 11:10 | disposition skilled nursing facility (03) | DRG 177 ==
PROVIDERS: Admitting Provider Family Medicine Geriatric Medicine; PCP Internal Medicine; Visit Provider Family Medicine Geriatric Medicine
DX: J69.0 Pneumonitis due to inhalation of food and vomit (principal); E43 Unspecified severe protein-calorie malnutrition; Z68.1 Body mass index [BMI] 19.9 or less, adult; F10.239 Alcohol dependence with withdrawal, unspecified; E51.2 Wernicke's encephalopathy; I10 Essential (primary) hypertension; Z23 Encounter for immunization; F41.9 Anxiety disorder, unspecified; F32.9 Major depressive disorder, single episode, unspecified; G40.909 Epilepsy, unspecified, not intractable, without status epilepticus; N40.0 Benign prostatic hyperplasia without lower urinary tract symptoms; K21.9 Gastro-esophageal reflux disease without esophagitis; K58.9 Irritable bowel syndrome, unspecified; F17.210 Nicotine dependence, cigarettes, uncomplicated; J44.9 Chronic obstructive pulmonary disease, unspecified; R13.10 Dysphagia, unspecified
CPT/HCPCS: 36415; 74018; 76770; 80048; 81001; 85025; 87086; 87493; 87635; 90732; 92507; 92526; 92610; 94799; 97110; 97116; 97162; 97166; 97530; 97535; 97802; G0009; J7030; A4216; U0003

== ENCOUNTER → 2020-01-03 | Outpatient (CLI) | payer MEDICARE, MEDICAID, SELFPAY ==
--- NOTE | 2020-01-03 14:40 | PFTCOMP ---
COMPLETE PULMONARY FUNCTION TEST INTERPRETATION Brief HPI: Patient is a 74 year old male, currently under the care of Diana Posey, who presents to [facility] for complete pulmonary function tests secondary to diagnosis of COPD. Respiratory therapist reports poor effort and questionable results. Patient reportedly appeared weak Interpretation: Forced expiration spirometry shows no large airways obstructive ventilatory defect with an FEV1 of 67% predicted. There is no significant bronchodilator response by strict ATS criteria. Spirograms are of good quality and plateau slowly, indicating slowly emptying areas of the lungs. The respiratory flow volume loop shows decreased expiratory flow rates at high lung volumes consistent with small airways obstruction. Lung volumes by body plethysmography show a decreased total lung capacity at 4.59 L, 80% predicted. All other lung volumes are reduced symmetrically. Diffusion capacity by carbon monoxide is normal at 95% predicted. The airway resistance is slightly elevated. No previous pulmonary function tests were available for review. Impression: Mild restrictive ventilatory defect with preserved diffusion capacity. Patient had difficulty with testing, so clinical correlation is advised.
== END | disposition home or self-care (01) ==
PROVIDERS: PCP Internal Medicine; Referring Provider Nurse Practitioner Acute Care; Visit Provider Nurse Practitioner Acute Care
DX: J44.9 Chronic obstructive pulmonary disease, unspecified (principal)
CPT/HCPCS: 94060; 94726; 94729

== ENCOUNTER → 2020-01-24 | Outpatient (CLI) | payer MEDICARE, MEDICAID, SELFPAY ==
[2020-01-24 13:19] VITALS: BMI 16.5
[2020-01-24 15:09] LABS: Absolute Lymphocyte Count 2.24 X10^3/uL (0.83-4.51); Absolute Neutrophil Count 5.3 X10^3/uL (2.0-7.7); Basophil# 0.06 X10^3/uL; Basophil% 0.7 % (0-1); Eosinophil# 0.26 X10^3/uL; Hematocrit 42.4 % (40-54); Hemoglobin 13.7 g/dL (13.0-16.5); Lymphocyte # 2.24 X10^3/ul (4.0); Lymphocyte % 26.2 % (19-41); Mean Corp Hgb Conc 32.3 g/dL (32-36); Mean Corpuscular Hgb 28.9 pg (27.0-32.0); Mean Corpuscular Volume 89.5 fL (80-94); Monocyte# 0.69 X10^3/uL; Monocyte% 8.1 % (0-10); NRBC Flagged by Analyzer 0 % (0-5); Neutrophil # 5.28 X10^3/uL (2.7-7.7); Neutrophil % 61.6 % (47-70); Platelet Count 377 K/mm3 (150-450); RBC Distribution Width CV 16.3 % (11.6-14.6); Red Blood Count 4.74 M/mm3 (4.6-6.2); White Blood Count 8.6 K/mm3 (4.4-11.0)
[2020-01-24 15:36] LABS: ALB/GLOB Ratio 0.9 RATIO (0.9-2.4); AST(SGOT) 10 U/L (15-37); Alanine Aminotransfer ALT/SGPT 21 U/L (16-61); Albumin, Serum 3.8 g/dL (3.2-5.0); Alkaline Phosphatase 125 U/L (45-117); Anion Gap 7 (5-15); BUN 5 mg/dL (7-18); BUN/Creat Ratio 4.5 RATIO (10-20); Calcium,Total 9.5 mg/dL (8.5-10.1); Chloride 106 mmol/L (98-107); Cholesterol 222 mg/dL (200); Creatinine, Serum 1.12 mg/dL (0.70-1.30); EST Glomerular Filtration Rate 68 mL/min (>60); Est Glom Filt Rate - Afr Amer 82 mL/min (>60); Globulin 4.1 g/dL (2.2-4.2); Glucose 101 mg/dL (74-106); High Density Lipoprotein 70 mg/dL; PSA,Total - Annual Screen 0.33 ng/mL (0.00-4.00); Potassium 4.2 mmol/L (3.5-5.1); Protein, Total 7.9 g/dL (6.4-8.2); Sodium Level 139 mmol/L (136-145); Thyroid Stim Hormone (TSH) 3.06 uIU/mL (0.358-3.74); Triglycerides 96 mg/dL; Very Low Density Lipoprotein 19 mg/dL (5-40)
== END | disposition home or self-care (01) ==
LOC: BIMLAB 14:10
PROVIDERS: PCP Internal Medicine; Referring Provider Nurse Practitioner Family; Visit Provider Nurse Practitioner Family
DX: D64.9 Anemia, unspecified (principal); F32.9 Major depressive disorder, single episode, unspecified; G40.909 Epilepsy, unspecified, not intractable, without status epilepticus; I10 Essential (primary) hypertension; J18.9 Pneumonia, unspecified organism; E43 Unspecified severe protein-calorie malnutrition; N40.0 Benign prostatic hyperplasia without lower urinary tract symptoms; Z12.5 Encounter for screening for malignant neoplasm of prostate
CPT/HCPCS: 36415; 80053; 80061; 84153; 84443; 85025; G0103

== ENCOUNTER → 2020-04-05 08:29 | Outpatient (CLI) | payer MEDICARE, SELFPAY ==
[2020-04-05 09:25] LABS: Ammonia < 10.0 umol/L (11-32)
[2020-04-05 09:29] LABS: Anion Gap 6 (5-15); BUN 12 mg/dL (7-18); BUN/Creat Ratio 9.5 RATIO (10-20); Calcium,Total 9.6 mg/dL (8.5-10.1); Chloride 103 mmol/L (98-107); Creatinine, Serum 1.26 mg/dL (0.70-1.30); EST Glomerular Filtration Rate 59 mL/min (>60); Est Glom Filt Rate - Afr Amer 72 mL/min (>60); Glucose 92 mg/dL (74-106); Potassium 4.6 mmol/L (3.5-5.1); Sodium Level 137 mmol/L (136-145)
[2020-04-08 12:07] LABS: Vitamin B1, Thiamine 107.4 nmol/L (66.5-200.0)
== END ==
PROVIDERS: PCP Internal Medicine; Referring Provider Nurse Practitioner Family; Visit Provider Nurse Practitioner Family
DX: G40.909 Epilepsy, unspecified, not intractable, without status epilepticus (principal); F03.90 Unspecified dementia, unspecified severity, without behavioral disturbance, psychotic disturbance, mood disturbance, and anxiety
CPT/HCPCS: 36415; 80048; 82140; 82542; 82746; 84425

== ENCOUNTER → 2020-04-10 15:20 | Outpatient (CLI) | payer MEDICARE, SELFPAY ==
--- NOTE | 2020-04-10 15:21 | MRI_ITS ---
STUDY: MRI BRAIN WITH AND WITHOUT CONTRAST REASON FOR EXAM: Male, 74 years old. History of seizures TECHNIQUE: Standardized multiplanar fat and water weighted pulse sequences were obtained. 5ml Dotarem via IV was administered for the contrast portion of the examination. COMPARISON: 10 November 2019 FINDINGS: Normal size of the ventricles and extra-axial spaces for the patient''s age. There is mild chronic white matter gliotic ischemic change in the periventricular and right frontal subcortical white matter. Normal bilateral basal ganglia. Normal thalami. There is no extra-axial fluid accumulation. Normal flow voids within the major intracranial circulation suggesting patency by spin echo criteria. Normal venous enhancement. There is no enhancing intra-axial or extra-axial abnormality. Normal sella turcica, pituitary gland, infundibular stalk, optic chiasm and hypothalamus. Normal tectal plate and pineal gland. Normal midbrain, azam and medulla. Normal cerebellum. Normal basal cisterns. Normal bilateral temporal bones. Normal bilateral internal auditory canals. No demonstrated orbital abnormality, within the constraints of a routine brain study. Normal visualized paranasal sinuses. Normal calvarium and skull base. Normal visualized soft tissue structures. Normal visualized upper cervical spine. MRI/Brain W/WO Contrast IMPRESSION: Mild chronic white matter ischemic change. Electronically Signed: Bishop Dixon, at 17:22 EST Tel , Service support ,
== END ==
PROVIDERS: PCP Internal Medicine; Referring Provider Psychiatry & Neurology Neurology; Visit Provider Psychiatry & Neurology Neurology
DX: F03.90 Unspecified dementia, unspecified severity, without behavioral disturbance, psychotic disturbance, mood disturbance, and anxiety (principal); R56.9 Unspecified convulsions
CPT/HCPCS: 70553; A9575

== ENCOUNTER 2020-06-05 10:20 | Emergency (ER) | payer MEDICARE, SELFPAY ==
[2020-06-05] VITALS (11 sets, daily range): BP systolic 123–177; BP diastolic 67–104; PULSE 65–86; RESP 14–18; TEMP 36.3; O2SAT 94–98; BMI 16.5; BMI 21.6
--- NOTE | 2020-06-05 10:25 | CT_ITS ---
STUDY: CT BRAIN WITHOUT CONTRAST REASON FOR EXAM: Male, 74 years old. HAVING HALLUCINATIONS, MENTAL HEALTH EVAL, SZ,HTN, CHANGE IN MENTAL STATUS, ALCOHOL ABUSE, DRUG ABUSE,WERNICKE ENCEPHALOPATHY RADIATION DOSAGE (If Supplied By Facility): CTDIvol = ( 60.81 ) mGy, DLP = ( 1044.28 ) mGycm TECHNIQUE: Transaxial CT imaging of the brain was performed without administration of intravenous contrast material. Individualized dose optimization techniques were used for this CT. COMPARISON: Comparison is made with prior study dated 11/10/2019. FINDINGS: Normal soft tissue structures. Normal calvarium. There is moderate cerebral atrophy with widening of the extra-axial spaces and ventricular dilatation. There are areas of decreased attenuation within the white matter tracts of the supratentorial brain, consistent with microvascular disease changes. Stable bilateral lacunar infarcts in the basal ganglia. Normal brainstem. Normal cerebellum. There is no intracranial hemorrhage. There are no findings of an acute ischemic infarction. Atherosclerotic calcification of the vertebral arteries and cavernous portions of the internal carotid arteries bilaterally. Normal visualized paranasal sinuses. CT/Brain/Head without Contrast IMPRESSION: Chronic involutional changes of the brain. Electronically Signed: Tigre Borden MD at 11:48 EST , Service support ,
--- NOTE | 2020-06-05 10:25 | EKG12_ITS ---
Test Reason : MENTAL HEALTH Blood Pressure : / mmHG Vent. Rate : 068 BPM Atrial Rate : 068 BPM P-R Int : 208 ms QRS Dur : 090 ms QT Int : 390 ms P-R-T Axes : 049 -16 024 degrees QTc Int : 414 ms Normal sinus rhythm Normal ECG Confirmed by DIPAK SPRINGER, JENNIFER ([id number]), features editor KARINE KABA ([id number]) on 06/08/2020 11:40:36 AM Referred By: BAL Confirmed By:JENNIFER QUESADA MD
--- NOTE | 2020-06-05 10:42 | ED.DCSUM_ITS ---
- ER Visit Summary Date of Service: 06/05/20 Chief Complaint: Abnormal behavior History of Present Illness: The patient is a 74 M who presents with abnormal behavior that began last night. Patient states he was having some visual hallucinations. Patient denies any auditory hallucinations. Police reports that the patient was confused today. Patient is a poor historian. Patient is only alert to person place and year. Patient denies any fevers or chills. Patient denies any chest pain or shortness of breath. Patient denies any nausea or vomiting. Physical Examination: Vital signs are stable except for an elevated blood pressure of 177/104. Patient is afebrile. Patient is in no acute distress. Oral mucosa is pink and moist. Neck is supple. Trachea is midline. There is no JVD noted. Heart was regular rate and rhythm. Lungs are clear and equal bilaterally. Abdomen is soft. Bowel sounds are normal. There is mild diffuse tenderness. There is no rebound or guarding noted. Skin is warm dry. Patient is alert and oriented to person, place, and year. Cranial nerves II through XII are intact. There are no focal motor or sensory deficits noted. Extremities are intact. There is no calf tenderness or edema. Test Results: CT scan of the brain was obtained. There is no acute intracranial abnormality. There are chronic changes. This was interpreted by the radiologist and reviewed by myself. Urine tox urine was positive for cannabin oids. Serum alcohol level was normal. CBC and comprehensive metabolic profile were essentially within normal limits. Urinalysis does not show any evidence of urinary tract infection. EKG was obtained. On my interpretation, there is normal sinus rhythm with a rate of 68. There are no acute ST or T wave changes. Emergency Department Course and Treatment: Patient did not require medication here in the emergency department. Case was discussed with vp digital marketing social media and crm. She will evaluate the patient. Patient will likely need to be placed in a psychiatric facility. Disposition: Transfer to psychiatric facility Impression: 1. Psychosis This note was generated with [employer] dictation software. It may contain incorrect words, spelling, and punctuation that were not noted in review of the chart prior to signing ED Disposition - Plan for ED Patient: Referrals: Jhonatan Zapien MD [Primary Care Provider] -
[2020-06-05 11:23] LABS: Absolute Lymphocyte Count 1.92 X10^3/uL (0.83-4.51); Absolute Neutrophil Count 4.9 X10^3/uL (2.0-7.7); Basophil# 0.07 X10^3/uL; Basophil% 0.8 % (0-1); Eosinophil# 0.42 X10^3/uL; Eosinophils% 5.1 % (0-5); Hematocrit 38.5 % (40-54); Hemoglobin 12.1 g/dL (13.0-16.5); Lymphocyte # 1.92 X10^3/ul (4.0); Lymphocyte % 23.2 % (19-41); Mean Corp Hgb Conc 31.4 g/dL (32-36); Mean Corpuscular Hgb 28.5 pg (27.0-32.0); Mean Corpuscular Volume 90.6 fL (80-94); Mean Platelet Vol. 9.2 fl (6.2-12.0); Monocyte# 0.93 X10^3/uL; Monocyte% 11.3 % (0-10); NRBC Flagged by Analyzer 0 % (0-5); Neutrophil % 59.4 % (47-70); Platelet Count 299 K/mm3 (150-450); RBC Distribution Width CV 16.3 % (11.6-14.6); RBC Distribution Width SD 53.6 fl (35.1-43.9); Red Blood Count 4.25 M/mm3 (4.6-6.2); White Blood Count 8.3 K/mm3 (4.4-11.0)
[2020-06-05 11:38] LABS: ALB/GLOB Ratio 1.2 RATIO (0.9-2.4); AST(SGOT) 26 U/L (15-37); Alanine Aminotransfer ALT/SGPT 25 U/L (16-61); Albumin, Serum 4.2 g/dL (3.2-5.0); Alkaline Phosphatase 75 U/L (45-117); Anion Gap 4 (5-15); BUN 21 mg/dL (7-18); BUN/Creat Ratio 15.7 RATIO (10-20); Calcium,Total 10.3 mg/dL (8.5-10.1); Chloride 109 mmol/L (98-107); Creatinine, Serum 1.34 mg/dL (0.70-1.30); EST Glomerular Filtration Rate 55 mL/min (>60); Est Glom Filt Rate - Afr Amer 67 mL/min (>60); Estimated Creatinine Clearance 40.34 ml/min; Globulin 3.5 g/dL (2.2-4.2); Glucose 99 mg/dL (74-106); Potassium 4.6 mmol/L (3.5-5.1); Protein, Total 7.7 g/dL (6.4-8.2); Sodium Level 141 mmol/L (136-145)
[2020-06-05 11:51] LABS: Alcohol, Blood (Medical)-Serum < 3.0 mg/dL
[2020-06-05 14:11] LABS: Bacteria 0 SEEN /hpf (None Seen); Mucous, Urine 0 SEEN /hpf (<or=2+); Red Blood Cells-Urine 0 SEEN /hpf (0-5); Squamous Epithelial Cells - UA 0 SEEN /hpf (0-5); White Blood Cells 0 SEEN /hpf (0-5)
[2020-06-05 14:20] LABS: Color, Urine Yellow (Yellow); Glucose, Dipstick Normal (Normal); Ketone-Dipstick 15 mg/dl (Negative); Leukocyte Esterase-Dipstick Negative /ul (Negative); Nitrite-Dipstick Negative (Negative); Occult Blood-Urine Negative /ul (Negative); Protein-Dipstick Negative (Negative); Urine Bilirubin Dipstick Negative (Negative); Urine Clarity Clear (Clear); Urine Urobilinogen Normal (Normal)
[2020-06-05 14:34] LABS: Amphetamine Urine VISTA NEGATIVE (<1000 ng/mL); Barbiturate Urine VISTA NEGATIVE (< 200 ng/mL); Benzodiazepine Urine VISTA NEGATIVE (< 200 ng/mL); Cocaine Urine VISTA NEGATIVE (< 300 ng/mL); Ecstacy Urine VISTA NEGATIVE (< 500 ng/mL); Methadone Urine VISTA NEGATIVE (< 300 ng/mL); PCP Urine VISTA NEGATIVE (< 25 ng/mL); THC Urine VISTA POSITIVE (< 50 ng/mL); Vista UDS pH Range 5
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
--- NOTE | 2020-06-05 17:20 | CM.ED ---
SOCIAL WORK Referral called and faxed to [facility]. Pending review at this time. Allyssa Zamora, CITY SURVEYOR, ORNAMENT MAKER HAND
--- NOTE | 2020-06-05 18:43 | CM.ED ---
SOCIAL WORK Received call from [facility] at [facility]. Patient accepted by Dr. Munoz to room 212 Bed 2. Nurse to call report to [phone]. [place] to set up transport. Allyssa Zamora, MATHEMATICAL SCIENTIST, SOCCER COMMENTATOR
--- NOTE | 2020-06-05 18:51 | ED.RN ---
attempted to call report to [facility], no answser.
--- NOTE | 2020-06-05 18:53 | ED.RN ---
2nd attempt to call report to [facility], no answer
--- NOTE | 2020-06-05 19:34 | CM.ED ---
SOCIAL WORK Received call earlier today from patient's [facility], [place] requesting update on patient. This worker returned call and updated on patient's acceptance to [facility] for inpatient psych for continuity of care. Allyssa Zamora, AGRICULTURAL SCIENCE PROFESSOR, WEB PRESS ROLL TENDER
--- NOTE | 2020-06-05 19:36 | CM.ED ---
SOCIAL WORK Patient gave this worker permission to update Ashlee snow on patient's status and plan of care. Call to Ashlee and updated on patient's acceptance to [facility]. Allyssa Zamora MSW, CORRECTIONAL COUNSELOR
--- NOTE | 2020-06-05 22:01 | NURSING ---
0 negra townsend gave report
== END 2020-06-05 22:18 ==
PROVIDERS: Emergency Provider Emergency Medicine; PCP Internal Medicine
DX: F29 Unspecified psychosis not due to a substance or known physiological condition (principal); Z79.899 Other long term (current) drug therapy
CPT/HCPCS: 70450; 80053; 80307; 81001; 82077; 85025; 87426; 93005; 99285; A4216

== ENCOUNTER 2020-06-17 22:49 | Inpatient (IN) | payer MEDICARE, MEDICAID, SELFPAY ==
[2020-06-05 10:21] VITALS: BMI 21.6
[2020-06-17 22:50] VITALS: BP 151/130; BP 155/100; PULSE 100; RESP 18; TEMP 36.6; O2SAT 98
--- NOTE | 2020-06-17 23:11 | RAD_ITS ---
STUDY: X-RAY CHEST REASON FOR EXAM: Male, 74 years old. Cough TECHNIQUE: AP portable chest. COMPARISON: November 10, 2019. FINDINGS: Lungs are hyperinflated. Patchy density now present right cardiophrenic angle and left mid lung. No pleural effusion. No pneumothorax. Normal size heart. Normal mediastinum and gisselle. Normal visualized pulmonary arteries. Atherosclerotic calcification of the aortic arch. Normal visualized thoracic spine. ORIF left clavicle. There is no demonstrated abnormality of the visualized soft tissue structures of the upper abdomen. RAD/Chest 1 View (Portable) IMPRESSION: Possible bilateral pneumonia. Consider correlation with CT chest. Hyperinflation. Electronically Signed: Hardik Sanchez MD at 0:18 EST , Service support ,
--- NOTE | 2020-06-17 23:12 | RAD_ITS ---
STUDY: X-RAY - LUMBAR SPINE REASON FOR EXAM: Male, 74 years old. Pain after trauma. TECHNIQUE: 3 view(s) of the lumbar spine were obtained. COMPARISON: Abdomen November 25, 2019. CT abdomen and pelvis December 13, 2016. Pelvis and left hip June 17, 2020. FINDINGS: Normal lumbar lordosis. There is no substantial scoliosis. There is a normal alignment of the vertebrae. Mild to moderate compression fracture T12 and L1 with severe compression fractures L2 and L4, unchanged since 2016. Disc space narrowing L5-S1. The soft tissue structures are unremarkable. Surgical clips right lower quadrant and overlying the right hemipelvis. Postoperative changes left hip pinning. RAD/Lumbar Spine 2 or 3 Views IMPRESSION: No acute findings in the lumbar spine. Multiple old compression fractures unchanged. Degenerative changes L5-S1 noted previously. Electronically Signed: Hardik Sanchez MD at 0:23 EST , Service support ,
--- NOTE | 2020-06-17 23:12 | RAD_ITS ---
STUDY: X-RAY - PELVIS AND LEFT HIP REASON FOR EXAM: Male, 74 years old. Pain after trauma. TECHNIQUE: 3 views of the pelvis and hip. COMPARISON: November 15, 2019. August 10, 2019. FINDINGS: There is a non-specific bowel gas pattern. Normal visualized soft tissue structures. Normal bilateral iliac wings, sacroiliac joints and visualized sacrum. Normal bilateral superior and inferior pubic rami. Normal pubic symphysis. Normal bilateral ischial tuberosities. Right tibia is normal. No fracture or dislocation. There is now a 1.6 x 1.1 cm roughly rectangular lucency within the right greater trochanter of uncertain clinical significance. Postoperative changes of ORIF left hip with an intramedullary johann. Compression screw terminates in the femoral head. Heterotopic bone formation adjacent to the left hip. No change since the prior study. Surgical clips overlie the right iliac wing. RAD/HIP, UNI W/ Pelvis 2-3 Views IMPRESSION: No acute findings in the pelvis or left hip. ORIF left hip. 1.6 cm lucency within the right greater trochanter which appears nonaggressive. Correlate with history of malignancy. Electronically Signed: Hardik Sanchez MD at 0:32 EST , Service support ,
[2020-06-17 23:39] LABS: Absolute Lymphocyte Count 1.99 X10^3/uL (0.83-4.51); Absolute Neutrophil Count 7.6 X10^3/uL (2.0-7.7); Basophil# 0.06 X10^3/uL; Basophil% 0.5 % (0-1); Eosinophil# 0.18 X10^3/uL; Eosinophils% 1.6 % (0-5); Hemoglobin 11.6 g/dL (13.0-16.5); Lymphocyte # 1.99 X10^3/ul (4.0); Lymphocyte % 17.9 % (19-41); Mean Corp Hgb Conc 32.2 g/dL (32-36); Mean Corpuscular Hgb 29.2 pg (27.0-32.0); Mean Corpuscular Volume 90.7 fL (80-94); Mean Platelet Vol. 9.1 fl (6.2-12.0); Monocyte# 1.29 X10^3/uL; Monocyte% 11.6 % (0-10); NRBC Flagged by Analyzer 0 % (0-5); Neutrophil # 7.56 X10^3/uL (2.7-7.7); Platelet Count 418 K/mm3 (150-450); RBC Distribution Width CV 16.6 % (11.6-14.6); RBC Distribution Width SD 55.8 fl (35.1-43.9); Red Blood Count 3.97 M/mm3 (4.6-6.2); White Blood Count 11.1 K/mm3 (4.4-11.0)
[2020-06-17 23:51] LABS: Anion Gap 9 (5-15); BUN 12 mg/dL (7-18); Calcium,Total 9.8 mg/dL (8.5-10.1); Chloride 103 mmol/L (98-107); Creatinine, Serum 1.09 mg/dL (0.70-1.30); EST Glomerular Filtration Rate 70 mL/min (>60); Est Glom Filt Rate - Afr Amer 85 mL/min (>60); Estimated Creatinine Clearance 48.78 ml/min; Glucose 109 mg/dL (74-106); Sodium Level 140 mmol/L (136-145)
[2020-06-17] MEDS: fentaNYL 100 MCG/2 ML Ampul 25 MCG IV (23:56)
[2020-06-17] MEDS: Ondansetron 4 MG/2 ML Vial IV (23:56)
[2020-06-18] VITALS (11 sets, daily range): BP systolic 111–156; BP diastolic 62–91; PULSE 59–93; RESP 16–28; TEMP 36.2–36.9; O2SAT 87–97; BMI 20.8
[2020-06-18 00:03] LABS: Lactic Acid 1.4 mmol/L (0.4-1.9)
--- NOTE | 2020-06-18 00:42 | ED.DCSUM_ITS ---
- ER Visit Summary Date of Service: 06/18/20 Chief Complaint: Fall History of Present Illness: The patient is a 74 M who cannot remember who his primary care physician is. He is a poor informant. He ports that 3 hours ago he was walking down the steps got down to the grass lost his balance and fell. Landed on his buttocks. Complains of low back pain and stated 10 severity left hip pain is 5-10 severity. Denies any blow to the head or loss of consciousness. He is not on anticoagulants. He denies any neck, shoulder, wrist, or right hip pain. On review of systems patient does report he had a cough for the past 4 days. It is nonproductive. He has felt short of breath and had chills. He denies fever. Does complain of generalized weakness. Physical Examination: Vitals: Stable. Afebrile. General: Well-nourished and well-developed. Head: Normocephalic atraumatic. Neck: Supple, no lymphadenopathy. No JVD. Nontender. Cardiovascular: Regular rate and rhythm. No murmurs. Respiratory: No respiratory distress. Rhonchi on right. Abdominal: Soft, nontender, nondistended, normal bowel sounds. No guarding, rebound, or peritoneal signs. Back: Mild diffuse tenderness palpation over the lumbar spine paraspinous musculature in the lumbar region bilaterally. No point tenderness. Extremities: Mild tenderness palpation over the left greater trochanter, no edema. Skin: Normal color, no rash. Neurologic: Alert and oriented ?3. Cranial nerves II through XII are intact. Normal strength and sensation. Psych: Normal affect. Test Results: CBC shows an H&H of 11.6 and 36.0, white count of 11.1, lymphocytes of 18, monocytes 12. Chem-7 shows a glucose of 109. Lactic acid is 1.4. Covid is negative. Clinical Impression(s) from Imaging Studies Chest X-Ray 06/17/20 23:11 IMPRESSION: Possible bilateral pneumonia. Consider correlation with CT chest. Hyperinflation. Electronically Signed: Hardik Sanchez MD at 0:18 EST , Service support , Hip/Pelvis X-Ray 06/17/20 23:12 IMPRESSION: No acute findings in the pelvis or left hip. ORIF left hip. 1.6 cm lucency within the right greater trochanter which appears nonaggressive. Correlate with history of malignancy. Electronically Signed: Hardik Sanchez MD at 0:32 EST , Service support , Lumbar Spine X-Ray 06/17/20 23:12 IMPRESSION: No acute findings in the lumbar spine. Multiple old compression fractures unchanged. Degenerative changes L5-S1 noted previously. Electronically Signed: Hardik Sanchez MD at 0:23 EST , Service support , Emergency Department Course and Treatment: Patient was given dose of fentanyl IM. He was given Zofran IV. While here his oxygen level decreased to 87% on room air. He was given Rocephin and Zithromax IV. Patient initially wants to go home. His pneumonia severity index is 74. He lives by himself. Patient asked that we call and talk to his close friend who ended up being his neighbor. She reports that the patient has pills scattered about his house and is not taking care of himself well at home. I discussed this with the patient and he agrees to be admitted to the hospital. Treatment Plan: Patient was discussed with Dr. Patel. He will be admitted for further evaluation and treatment. Disposition: Admitted in improved condition. Impression: 1. Pneumonia. 2. Fall. 3. Lumbar strain. 4. Left hip pain. 5. Right greater trochanter lucency. 6. Hypoxia. This note was generated with [employer] software. It may contain incorrect words, spelling, and punctuation that were not noted in review of the chart prior to signing ED Disposition - Plan for ED Patient: Referrals: Jhonatan Zapien MD [Primary Care Provider] -
--- NOTE | 2020-06-18 01:02 | ED.RN ---
pt granted permission to speak to his friend Ashlee Neal, this nurse spoke to her and informed her that pt refuses to be admitted and requested to be discharged home. Ashlee De Jesus reported that pt has not drank etoh for 7 months.
[2020-06-18] MEDS: Ceftriaxone 1 GM/50 ML BAG IV (01:13)
--- NOTE | 2020-06-18 01:25 | ED.RN ---
Ashlee De Jesus also informed this nurse that pt is not taking all of his medications, pt takes the am meds and Ashlee takes dinner over every evening to pt and finds medications all over the floor. Dr. Weeks informed of same and this nurse asked for [facility] referral.
--- NOTE | 2020-06-18 01:32 | HP.PCM_ITS ---
Problem List (1) Pneumonia Status: Acute Qualifiers: Pneumonia type: due to unspecified organism Laterality: right Lung location: upper lobe of lung Qualified Code(s): J18.9 - Pneumonia, unspecified organism (2) Sepsis Status: Acute Qualifiers: Sepsis type: sepsis due to unspecified organism Sepsis acute organ dysfunction status: unspecified Qualified Code(s): A41.9 - Sepsis, unspecified organism (3) Fall Status: Acute Qualifiers: Encounter type: initial encounter Qualified Code(s): W19.XXXA - Unspecified fall, initial encounter (4) Aspiration pneumonia Status: Acute Qualifiers: Aspiration pneumonia type: unspecified Laterality: right Lung location: upper lobe of lung Qualified Code(s): J69.0 - Pneumonitis due to inhalation of food and vomit (5) Protein-calorie malnutrition, severe Status: Chronic (6) BPH (benign prostatic hyperplasia) Status: Chronic Qualifiers: Lower urinary tract symptom presence: unspecified whether lower urinary tract symptoms present Qualified Code(s): N40.0 - Benign prostatic hyperplasia without lower urinary tract symptoms (7) Anxiety Status: Chronic (8) IBS (irritable bowel syndrome) Status: Chronic Qualifiers: Irritable bowel syndrome type: unspecified (9) GERD (gastroesophageal reflux disease) Status: Chronic Qualifiers: Esophagitis presence: esophagitis presence not specified Qualified Code(s): K21.9 - Gastro-esophageal reflux disease without esophagitis (10) Depression Status: Chronic Qualifiers: Depression Type: unspecified Qualified Code(s): F32.9 - Major depressive disorder, single episode, unspecified (11) Anemia Status: Chronic Qualifiers: Anemia type: unspecified type Qualified Code(s): D64.9 - Anemia, unspecified (12) Hypertension Status: Chronic Qualifiers: Hypertension type: essential hypertension Qualified Code(s): I10 - Essential (primary) hypertension (13) Chronic obstructive pulmonary disease (COPD) Status: Chronic Qualifiers: COPD type: unspecified COPD Qualified Code(s): J44.9 - Chronic obstructive pulmonary disease, unspecified (14) Wernicke encephalopathy Status: Chronic (15) Alcohol abuse Status: Chronic (16) Seizure disorder Status: Chronic (17) Tobacco abuse Status: Chronic History of Present Illness Date of Admission: 06/18/20 Chief Complaint: Mechanical fall, fatigue. The patient is a 74 y/o M w/ PMHx: Chronic anemia, Anxiety and Depression, GERD, IBS, HTN, Hx EtOH Abuse, Tobacco use, BPH who presents to the [facility] ED on 06/17/20 with history of walking down the steps, noted to have fallen in his front yard with onset back and L hip pain with upon evaluation ongoing cough, dyspnea, chills, generalized weakness but not specifically complaining about his recent illness x 4 days. Work-up in the ED included T 98, heart rate 100, BP 151/130, respiratory rate 18, 90% on room air, CBC with WBC 11.1, hemoglobin 11.6, platelet 418 without marked shift, BMP unremarkable aside glucose 109, lactic acid 1.4, blood culture x2 pending per ED, SARS Covid rapid antigen negative, chest x-ray with questionable bilateral pneumonia with hyperinflation with r ecommended follow-up CT chest, plain film of the lumbar spine with no acute findings of the lumbar spine with multiple old compression fractures unchanged with degenerative changes L5-S1 noticed previously, hip and pelvis x-ray with no acute findings in the left hip or pelvis, prior evidence ORIF of left hip, 1.6 cm lucency within the right greater trochanter appears nonaggressive. Patient per friend lives in an unsafe environment and additionally is not taking his medications correctly. In the ED patient administered fentanyl 25 mcg IV x1, Zofran, Rocephin and azithromycin. Past Medical History Past Medical History (Chronic Problems): Chronic Problems (Last Reviewed 03/29/20 @ 11:06 by Devi Awad) Protein-calorie malnutrition, severe (Chronic) Insomnia (Chronic) BPH (benign prostatic hyperplasia) (Chronic) Appetite loss (Chronic) Osteoporosis (Chronic) Anxiety (Chronic) Dizziness (Chronic) History of kidney stones (Chronic) IBS (irritable bowel syndrome) (Chronic) GERD (gastroesophageal reflux disease) (Chronic) Depression (Chronic) Anemia (Chronic) Hypertension (Chronic) Chronic obstructive pulmonary disease (COPD) (Chronic) Wernicke encephalopathy (Chronic) Alcohol abuse (Chronic) Seizure disorder (Chronic) Tobacco abuse (Chronic) Medical History: Medical History (Last Reviewed 03/29/20 @ 11:06 by Devi Awad) History of kidney stones (Chronic) Z87.442 IBS (irritable bowel syndrome) (Chronic) K58.9 GERD (gastroesophageal reflux disease) (Chronic) K21.9 Depression (Chronic) F32.9 Anemia (Chronic) D64.9 Hypertension (Chronic) I10 Anxiety F41.9 History of alcohol abuse F10.11 History of fracture of clavicle Z87.81 Vitamin D deficiency E55.9 Allergies bupropion HCl [From Wellbutrin] Allergy (Verified 06/17/20 22:53) SHAKING quetiapine fumarate [From Seroquel] Allergy (Verified 06/17/20 22:53) Unknown trazodone Adverse Reaction (Verified 06/17/20 22:53) SHAKING Home Medications: Ambulatory Orders Medication Instructions Recorded Trihexyphenidyl HCl 2 mg PO BID 08/10/19 buspirone 15 mg tablet 15 mg PO BID #180 tab 01/24/20 lamotrigine 200 mg tablet 200 mg PO BID tab 02/22/20 amlodipine 5 mg tablet 5 mg PO DAILY #30 tab 03/30/20 lisinopril 10 mg tablet 10 mg PO DAILY #30 tab 03/30/20 omeprazole 40 mg capsule,delayed 40 mg PO DAILY #90 cap 05/30/20 release Fluoxetine [Prozac] 20 mg PO DAILY 06/05/20 Risperidone 1 mg PO QHS 06/05/20 Tamsulosin HCl 0.4 mg PO DAILY@1830 06/05/20 Surgical History: Surgical History (Last Reviewed 03/29/20 @ 11:06 by Devi Awad) History of hip surgery Z98.890 History of intestinal surgery Z98.890 due to blockage History of tonsillectomy Z90.89 Surgical History: herniorrhaphy, tonsillectomy, - - Bowel obstruction intervention, tonsillectomy, hernia repair, hip surgery, tonsillectomy. Psychiatric History: Anxiety, Depression Lives: Alone Smoking Status: Current every day smoker - Patient with ongoing 1/2-1 ppd prolonged cigarette tobacco user. Tobacco Use: Cigarettes Alcohol: Sober - Sober since November 2019. Drugs: None - *Family History Maternal Family History: Family History (Last Reviewed 03/29/20 @ 11:06 by Devi Awad) Other Anemia Anxiety Breast cancer Cancer Depression Hypertension Osteoporosis History Items: Cancer, Hypertension Paternal Family History: Family History (Last Reviewed 03/29/20 @ 11:06 by Devi Awad) Other Anemia Anxiety Breast cancer Cancer Depression Hypertension Osteoporosis History Items: Cancer, Hypertension Review of Systems Constitutional: Reports: Anorexia, Chills, Malaise, Weakness, Fatigue. Denies: Fever, Weight Change HEENT: Denies: Head Aches, Sinus Congestion, Sinus Drainage Cardiovascular: Denies: Chest Pain, Palpitations Respiratory: Reports: Cough, Shortness of Breath, Shortness of breath at rest, Shortness of breath upon exertion. Denies: Sputum production, Wheezing Gastrointestinal: Denies: Abdominal Pain, Nausea, Vomiting Genitourinary: Denies: Dysuria Musculoskeletal: Reports: Back Pain, Joint Pain, Joint stiffness, Joint swelling, Joint Tenderness, Leg Pain Skin: Denies: Rash, Wounds Neurological: Denies: Numbness, Tingling, Focal weakness Psychiatric: Denies: Anxiety, Depression, Homicidal Ideations, Suicidal Ideations Hematologic/ Lymphatic: Reports: Anemia, Easy Bruising, Easy Bleeding VTE Information - Inpt Only VTE Present on Admission: No VTE Mechan Device Prophylaxis: SCD's VTE Pharm Prophylaxis ordered?: Yes Patient Problems: Active and Suspected Problems (Last Reviewed 03/29/20 @ 11:06 by Devi Awad) Pneumonia (Acute) Sepsis (Acute) Fall (Acute) Aspiration pneumonia (Acute) Subjective: Patient seated upright in ED bed, significant difficulty managing his upper airway secretions, worsened during ED stay per discussion with nursing staff. Objective: Physical Examination: General: awake, alert, oriented x 3 and cooperative, seated upright in the ED bed, no obvious distress but definite upper airway secretions audibly noted with patient having difficulty coughing or swallowing them. Skin: normal color, turgor, no icterus, cyanosis. HEENT: AT/NC, EOMI, PERRLA, moderately dry MM, as noted upper airway difficulty with management of secretion, no carotid bruits or JVD noted. Lungs: Diminished breath sounds, poor effort, mildly coarse right upper and mid regions, no obvious wheezing or rales. Heart: Regular rate and rhythm; no gallop, rub audible. Abdomen: soft, thin cachectic habitus, NTTP, ND, normal BS, no HSM. Extremities: no cyanosis, clubbing, or edema. Notes ongoing mild lower back discomfort and left hip. Neurological: patient awake, alert, oriented as noted; cognitive function appears baseline intact; pupils equally reactive to light and accomodation; cranial nerves II-XII grossly normal, moving all 4 extremities, no focal deficits, strength moderately to severely global decreased. Psychiatric: affect appears fatigued, no acute evidence of depressive or anxiety feelings. - Physical Exam Vitals/I&O's: Vital Signs Temp Pulse Resp BP Pulse Ox 98 F 59 L 16 156/87 H 87 06/17/20 22:50 06/18/20 01:03 06/18/20 01:03 06/18/20 01:03 06/18/20 01:03 Oxygen Delivery Method Room Air Weight: 127 lb 13.89 oz Body Mass Index (BMI) 20.0 Finger Stick Blood Glucose 122 Microbiology Past 72 Hours 06/17/20 23:20 Mucosa - Nose SARS-CoV-2 Antigen (Rapid) - Final Laboratory Results 06/17/20 23:31: WBC 11.1 H, RBC 3.97 L, Hgb 11.6 L, Hct 36.0 L, MCV 90.7, MCH 29.2, MCHC 32.2, RDW Std Deviation 55.8 H, RDW Coeff of Dariela 16.6 H, Plt Count 418, MPV 9.1, Immature Gran % (Auto) 0.400, Neut % (Auto) 68.0, Lymph % (Auto) 17.9 L, [place] % (Auto) 11.6 H, Eos % (Auto) 1.6, Baso % (Auto) 0.5, Absolute Neuts (auto) 7.6, Absolute Lymphs (auto) 1.99, Nucleated RBC % 0 06/17/20 23:31: Sodium 140, Potassium 4.0, Chloride 103, Carbon Dioxide 28.0, Anion Gap 9, BUN 12, Creatinine 1.09, Estim Creat Clear Calc 48.78, Est GFR (MDRD) Af Amer 85, Est GFR (MDRD) Non-Af 70, BUN/Creatinine Ratio 11.0, Glucose 109 H, Calcium 9.8 06/17/20 23:31: Lactic Acid 1.4 Current Medications Azithromycin 500 mg/ Dextrose 255 mls @ 250 mls/hr IV X1 ONE Stop: 06/18/20 01:56 Assessment/Plan All Active Problems (Last Reviewed 03/29/20 @ 11:06 by Devi Awad) Pneumonia (Acute) Sepsis (Acute) Fall (Acute) Failure to thrive in adult (Acute) Dehydration (Acute) Aspiration pneumonia (Acute) Encephalopathy (Acute) Acute kidney injury (Acute) Debility (Acute) Benzodiazepine withdrawal (Resolved) Cholelithiasis (Resolved) Closed left hip fracture (Resolved) The patient is a 74 y/o M w/ PMHx: Chronic anemia, Anxiety and Depression, GERD, IBS, HTN, Hx EtOH Abuse, Tobacco use, BPH who presents to the [facility] ED on 06/17/20 with history of walking down the steps, noted to have fallen in his front yard with onset back and L hip pain with upon evaluation ongoing cough, dyspnea, chills, generalized weakness but not specifically complaining about his recent illness x 4 days. 1. Mechanical fall, debility: We will admit to medical surgical floor, maintain on fall precautions, continue treatment for #2, physical therapy/Occupational Therapy/case management consultation for discharge planning, as needed pain regimen, as needed antiemetic, positional changes frequently given recent fall and debility. 2. Acute Bilateral Pneumonia with Hypoxia: Chest x-ray with concern for possible bilateral infiltrates, rapid Covid antigen negative, continue head of bed, I-S, sputum culture and urine antigens requested, in the interim we will continue IV Rocephin and azithromycin regimen pending further work-up as noted although admission CBC with no significant WBC elevation and afebrile. Given planned CT hip will obtain CT chest concurrently. 3. Incidental 1.6 cm lucency within the right greater trochanter: Questionable cancer, per report appears nonaggressive, will need aggressive follow-up, will request CT hip. 4. Hypertension: Continue home regimen including amlodipine, lisinopril with hold parameters, PRN hydralazine. 5. Anxiety and depression/? Bipolar disorder: We will continue patient home BuSpar, Prozac, risperidone regimen. 6. Chronic anemia: Admission hemoglobin 11.6, baseline hemoglobin primarily 11- 12, stable, trend. 7. Tobacco Abuse: Encouraged cessation, inpatient consultation per RT, NR if desired. 8. Chronic dementia associated with alcoholism without behavioral disturbance history, Warnicke encephalopathy: Maintain on fall precautions, PT/OT/case management consultation for discharge planning, continue patient anxiety and depression/antipsychotic regimen. 9. Chronic COPD: Encourage tobacco cessation, not on any routine inhaler regimen, ATC duonebs, as needed albuterol, encourage head of bed and I-S. 10. History of alcohol abuse: Reportedly sober since November 2019. 11. Seizure disorder, concurrent prior history of alcohol withdrawal seizures, currently sober: Patient following with local neurology, we will continue patient on lamotrigine regimen. 12. BPH: We will continue patient home Flomax regimen. 13. GERD: We will continue patient on PPI. 14. Severe protein calorie malnutrition: Evidenced by habitus, significant muscle and fat loss, nutrition consulted for recommendations. 15. DVT prophylaxis: SCDs, Lovenox. 16. CODE status: Patient does not have healthcare power of real estate attorney nor living will set up nor is he interested in any information. Discussed CODE status at length including difference between FULL code, DNR-CCA and DNR-CC status. Following discussions about the differences in these status, requested very specifically DNR CCA no intubation stating that when [he] is he is . Advanced Care Planning Face to Face Time: 16 minutes. Inpatient E&M: 55898 Init Hosp L3 Procedures: 02177 Advncd Care Plan 30 Min
--- NOTE | 2020-06-18 02:15 | CT_ITS ---
STUDY: CT PELVIS WITH CONTRAST REASON FOR EXAM: Male, 74 years old. R greater trochanter lucency, possibly cancer RADIATION DOSAGE (If Supplied By Facility): CTDIvol = ( 12.62 ) mGy, DLP = ( 507.62 ) mGycm TECHNIQUE: Transaxial imaging of the pelvis was performed without oral contrast. IV 100mL Isovue-300 was administered intravenously. Individualized dose optimization techniques were used for this CT. COMPARISON: Pelvis and right hip June 17, 2020. FINDINGS: Normal urinary bladder. The prostate gland is not enlarged. Normal visualized small intestine. Normal visualized colon. There is no pelvic fluid. There is no pelvic lymphadenopathy or mass lesion. Surgical clips right lower quadrant. Atherosclerotic calcification of the distal abdominal aorta. Ectasia versus mild relative aneurysmal dilatation of the distal abdominal aorta measuring 2.3 x 2.9 cm in AP and transverse dimensions. 2.9 x 1.9 cm right inguinal hernia containing soft tissue and fluid. Severe compression fracture L4 which is probably old. An acute fracture line is not identified . Disc space narrowing with vacuum disc L5-S1. Mild retrolisthesis L5 on S1. Right hip is normal. Normal trabeculation. No findings to account for lucency in the right greater trochanter on the recent plain films. As per the nurse caring for the patient there is no skin defect overlying the right hip. Postoperative changes of ORIF left hip. Intramedullary johann. Compression screw terminates in the femoral head. Heterotopic bone formation adjacent to the greater trochanter. CT/Pelvis WITH IV Contrast IMPRESSION: Normal right hip. The right greater trochanter is normal. No abnormality to account for lucency on the recent plain film. The finding on the plain film likely represents artifact and is not of clinical significance. Atherosclerotic calcification of the distal abdominal aorta with mild ectasia/mild relative aneurysmal dilatation of distal abdominal aorta. 2.9 cm right inguinal hernia containing soft tissue and fluid. Correlate clinically. Appearance does not suggest strangulation. Compression fracture of L4 which is probably old. Electronically Signed: Hardik Sanchez MD at 4:04 EST , Service support ,
--- NOTE | 2020-06-18 02:15 | CT_ITS ---
STUDY: CT CHEST WITHOUT CONTRAST REASON FOR EXAM: Male, 74 years old. Pneumonia. Cough. RADIATION DOSAGE (If Supplied By Facility): CTDIvol = ( 8.09 ) mGy, DLP = ( 307.19 ) mGycm TECHNIQUE: Transaxial imaging was performed without the administration of intravenous contrast material. Individualized dose optimization techniques were used for this CT. COMPARISON: Chest x-ray June 17, 2020. CT cervical spine November 10, 2019. FINDINGS: Emphysematous changes. Patchy right lower lobe airspace opacity. This corresponds to the density on the recent chest x-ray. To a lesser extent patchy left lower lobe airspace opacity. No effusion. No pneumothorax. The heart is not enlarged. Coronary artery calcifications. No pericardial effusion. Small hiatal hernia. 1 cm precarinal lymph node. Normal hilar regions. Normal unenhanced pulmonary arteries. There is chronic calcification of the thoracic aorta. The patient is kyphotic. Numerous compression fractures in the thoracic spine which may represent old fractures. An acute fracture line is not identified. There are compression fractures to varying degrees at T2, T3, T4, T5, T6, T7 and T11, T12, L1 and L2. The compression fracture at T2 has not significantly changed as compared to the prior CT cervical spine. ORIF left clavicle. Subcentimeter hyperdense cyst posterior cortex right kidney. 1.6 cm exophytic hyperdense cyst posterior cortex left kidney. CT/Chest without Contrast IMPRESSION: Focal bilateral lower lobe pneumonias right greater than left. Emphysematous changes. Thoracic kyphosis. Compression fractures at multiple levels in the thoracic spine age-indeterminate but probably old. If the patient has focal tenderness in the thoracic spine consider correlation with MRI. Coronary artery calcifications. Small hiatal hernia. Hyperdense cysts in the kidneys which require no further evaluation. Electronically Signed: Hardik Sanchez MD at 3:31 EST , Service support ,
[2020-06-18] MEDS: 0.9% Normal Saline 1,000 ML 125 ML IV ×2 (03:13→12:14)
[2020-06-18 05:38] LABS: M R Staph aureus DNA By PCR Negative (Negative)
[2020-06-18 05:39] LABS: Probe Check PASS; Specimen Processing Control PASS
[2020-06-18 05:50] LABS: Absolute Lymphocyte Count 1.88 X10^3/uL (0.83-4.51); Absolute Neutrophil Count 5.4 X10^3/uL (2.0-7.7); Basophil# 0.04 X10^3/uL; Basophil% 0.5 % (0-1); Eosinophil# 0.21 X10^3/uL; Eosinophils% 2.4 % (0-5); Hematocrit 35.7 % (40-54); Hemoglobin 11.3 g/dL (13.0-16.5); Lymphocyte # 1.88 X10^3/ul (4.0); Lymphocyte % 21.7 % (19-41); Mean Corp Hgb Conc 31.7 g/dL (32-36); Mean Corpuscular Hgb 28.6 pg (27.0-32.0); Mean Corpuscular Volume 90.4 fL (80-94); Mean Platelet Vol. 8.9 fl (6.2-12.0); Monocyte% 12.7 % (0-10); NRBC Flagged by Analyzer 0 % (0-5); Neutrophil # 5.41 X10^3/uL (2.7-7.7); Neutrophil % 62.5 % (47-70); Platelet Count 396 K/mm3 (150-450); RBC Distribution Width CV 16.6 % (11.6-14.6); RBC Distribution Width SD 55.4 fl (35.1-43.9); Red Blood Count 3.95 M/mm3 (4.6-6.2); White Blood Count 8.7 K/mm3 (4.4-11.0)
[2020-06-18 06:23] LABS: ALB/GLOB Ratio 0.8 RATIO (0.9-2.4); AST(SGOT) 18 U/L (15-37); Alanine Aminotransfer ALT/SGPT 16 U/L (16-61); Albumin, Serum 3.1 g/dL (3.2-5.0); Alkaline Phosphatase 86 U/L (45-117); Anion Gap 9 (5-15); BUN 10 mg/dL (7-18); BUN/Creat Ratio 9.4 RATIO (10-20); Calcium,Total 9.1 mg/dL (8.5-10.1); Chloride 103 mmol/L (98-107); Creatinine, Serum 1.06 mg/dL (0.70-1.30); EST Glomerular Filtration Rate 73 mL/min (>60); Est Glom Filt Rate - Afr Amer 88 mL/min (>60); Estimated Creatinine Clearance 46.09 ml/min; Globulin 3.7 g/dL (2.2-4.2); Glucose 89 mg/dL (74-106); Potassium 4.1 mmol/L (3.5-5.1); Protein, Total 6.8 g/dL (6.4-8.2); Sodium Level 137 mmol/L (136-145)
[2020-06-18] MEDS: Ipratropium/Albuterol Sulfate 3 ML AMPUL.NEB INHALATION ×3 (07:11→18:53)
--- NOTE | 2020-06-18 07:54 | PCM.PN.BLA ---
Progress Note Patient was seen and examined. Admitted this morning after a fall. He has multiple comorbidities and is said to have fallen in his front yard and complaining of left hip pain. Vitals has remained stable. Blood work shows improvement in his WBC count 11.1 to 8.7. His respiratory panel as well as rapid COVID-19 test is negative. Blood cultures are pending. His admitting imaging reviewed; Will continue with IV antibiotics, pain control STROKE Vital Signs/Narrative: Vital Signs Pulse Resp Pulse Ox 06/18/20 07:11 84 22 H 91
[2020-06-18 08:22] LABS: Procalcitonin < 0.04 ng/mL (0.00-0.09)
[2020-06-18] MEDS: Pantoprazole Sodium 40 MG Tablet PO (09:11)
[2020-06-18] MEDS: busPIRone 15 MG TABLET PO (09:11)
[2020-06-18] MEDS: FLUoxetine 20 MG Capsule PO (09:11)
[2020-06-18] MEDS: Lisinopril 10 MG Tablet PO (09:11)
[2020-06-18] MEDS: lamoTRIgine 100 MG Tablet 200 MG PO (09:11)
[2020-06-18] MEDS: amLODIPine 5 MG Tablet PO (09:11)
--- NOTE | 2020-06-18 12:40 | CASEMGMT ---
RN ESAU assessment: Phone interview with pt's friend/neighbor, Ashlee De Jesus, for initial transition planning/care coordination assessment as pt is confused and unable to complete assessment. Message left with pt's CM, Lucía Salmeron, thru the counseling center. Pt's friend, Ashlee, is listed as contact. RN ESAU introduced self and role at [facility], Ashlee voices understanding and consents to assessment. Pt is lying in bed in no distress on 2L nc. Per nursing, pt is not oriented at all at this time and unable to comprehend. Per Ashlee, pt does have a sister and she did try to contact her but sister did not want to assist pt at this time. Care providers, pharmacy, and demographics verified with friend. Presentation: Fall w/ back/buttocks pain Admitting dx: Pneumonia/hypoxia PCP: Rupali Specialists: Unknown at this time Preferred Pharmacy: [facility] Insurance: [facility] A[facility]B, [facility] Prescription Benefit: Yes Living Will/HPOA: Friend does not believe that pt has AD's at this time. LNOK: Ashlee De Jesus, friend/neighbor Living Arrangements: Pt lives alone in apartment and per Ashlee, has not been caring for self. Per Ashlee, pt's home is a mess, she is unsure if pt is taking meds properly, and pt's clothing is covered in stool. Ashlee also states that pt had recent psych admission. Ashlee states that she gets groceries for pt and prepares all his dinners for him. Transportation: Pt's CM thru the counseling center, Lucía Salmeron, takes him where he needs to go. DME/HHC: Friend states pt has a walker and 'med machine' to dispense meds but states pt sleeps 'most of day' and gets confused about what time of day to take meds. Pt was recently at [facility] for psych admission and has been to [facility] in past. Per Ashlee, pt has aides twice weekly and she recently asked for him to get increased aide services. Ashlee states concerns with pt going home at discharge d/t confusion/inability to care for self. Pt is retired. Per Ashlee, pt does smoke 'a lot' of cigarettes daily but does not drink ETOH. CM to follow for PT/OT evals and any further discharge planning/needs. Plan: TBD, pending PT/OT evals, pt mental status, ability to care for self. SStjim MCCANN CM
--- NOTE | 2020-06-18 14:02 | CASEMGMT ---
APOORVA called [facility] and checked to see if patient is active with them. He is active and his nurse case manager is Jesusita Sterling. He gets 7 meals delivered a week through [employer], [employer], 4 hours a week of aide services for personal care through [facility], and a nurse from [facility] that sets up his medications. APOORVA will continue to follow. Krissy RUBIN MSW
--- NOTE | 2020-06-18 14:44 | CASEMGMT ---
Pt qualifies for a Palliative referral per the [facility] palliative screening tool. Dr. Covington aware and states ok for Palliative c/s at this time. Palliative updated at this time. Sonia MCCANN CM
--- NOTE | 2020-06-18 14:45 | CASEMGMT ---
Per Dr. Covington, she would like palliative c/s made for pt at this time. Jessica at palliative aware and referral faxed at this time. Sonia MCCANN CM
[2020-06-18] MEDS: 0.9% Normal Saline 1,000 ML 75 ML IV (23:19)
[2020-06-19] VITALS (8 sets, daily range): BP systolic 112–151; BP diastolic 60–75; PULSE 59–78; RESP 15–24; TEMP 36.4–36.9; O2SAT 93–97
[2020-06-19] MEDS: Ipratropium/Albuterol Sulfate 3 ML AMPUL.NEB INHALATION ×2 (06:40→19:35)
--- NOTE | 2020-06-19 06:45 | CPS ---
Aerosol was started but pt became combative, punching and kicking, and pulled mask off. R.T. stopped tx.
[2020-06-19] MEDS: lamoTRIgine 100 MG Tablet 200 MG PO ×2 (10:33→21:00)
[2020-06-19] MEDS: busPIRone 15 MG TABLET PO ×2 (10:33→21:01)
[2020-06-19] MEDS: FLUoxetine 20 MG Capsule PO (10:34)
[2020-06-19] MEDS: TRIHEXYPHENIDYL HCL 2 MG TABLET PO ×2 (10:34→21:01)
[2020-06-19] MEDS: amLODIPine 5 MG Tablet PO (10:34)
[2020-06-19] MEDS: Lisinopril 10 MG Tablet PO (10:34)
[2020-06-19] MEDS: Pantoprazole Sodium 40 MG Tablet PO (10:34)
[2020-06-19] MEDS: Acetaminophen 325 MG Tablet 650 MG PO (10:35)
[2020-06-19] MEDS: 0.9% Saline Lock 10 ML Syringe IV (10:36)
--- NOTE | 2020-06-19 10:50 | CON.PCM_ITS ---
Problem List (1) Pneumonia Status: Acute Qualifiers: Pneumonia type: due to unspecified organism Laterality: right Lung location: upper lobe of lung Qualified Code(s): J18.9 - Pneumonia, unspecified organism (2) Sepsis Status: Acute Qualifiers: Sepsis type: sepsis due to unspecified organism Sepsis acute organ dysfunction status: unspecified Qualified Code(s): A41.9 - Sepsis, unspecified organism (3) Fall Status: Acute Qualifiers: Encounter type: initial encounter Qualified Code(s): W19.XXXA - Unspecified fall, initial encounter (4) Failure to thrive in adult Status: Acute (5) Protein-calorie malnutrition, severe Status: Chronic (6) Dehydration Status: Acute (7) Aspiration pneumonia Status: Acute Qualifiers: Aspiration pneumonia type: unspecified Laterality: right Lung location: upper lobe of lung Qualified Code(s): J69.0 - Pneumonitis due to inhalation of food and vomit (8) Encephalopathy Status: Acute (9) Acute kidney injury Status: Acute (10) Insomnia Status: Chronic (11) BPH (benign prostatic hyperplasia) Status: Chronic Qualifiers: Lower urinary tract symptom presence: unspecified whether lower urinary tract symptoms present Qualified Code(s): N40.0 - Benign prostatic hyperplasia without lower urinary tract symptoms (12) Osteoporosis Status: Chronic (13) Debility Status: Acute (14) Anxiety Status: Chronic (15) Dizziness Status: Chronic (16) History of kidney stones Status: Chronic (17) IBS (irritable bowel syndrome) Status: Chronic Qualifiers: Irritable bowel syndrome type: unspecified Qualified Code(s): K58.9 - Irritable bowel syndrome without diarrhea (18) GERD (gastroesophageal reflux disease) Status: Chronic Qualifiers: Esophagitis presence: esophagitis presence not specified Qualified Code(s): K21.9 - Gastro-esophageal reflux disease without esophagitis (19) Depression Status: Chronic Qualifiers: Depression Type: unspecified Qualified Code(s): F32.9 - Major depressive disorder, single episode, unspecified (20) Anemia Status: Chronic Qualifiers: Anemia type: unspecified type Qualified Code(s): D64.9 - Anemia, unspecified (21) Hypertension Status: Chronic Qualifiers: Hypertension type: essential hypertension Qualified Code(s): I10 - Essential (primary) hypertension (22) Chronic obstructive pulmonary disease (COPD) Status: Chronic Qualifiers: COPD type: unspecified COPD Qualified Code(s): J44.9 - Chronic obstructive pulmonary disease, unspecified (23) Wernicke encephalopathy Status: Chronic (24) Alcohol abuse Status: Chronic (25) Seizure disorder Status: Chronic (26) Tobacco abuse Status: Chronic History of Present Illness Date of Consult: 06/19/20 Requesting physician: [] Primary care physician: Dr. Jhonatan Zapien MD - History of Present Illness The patient is a 74 year old M who was referred to palliative due to positives on screening eval for shortness of breath related to recent pneumonia diagnosis, frequent falls due to debility, malnutrition and confusion. Patient has significant medical history see list below. Reportedly had a fall in the front yard with onset of back and left hip pain and ongoing cough, dyspnea, chills, generalized weakness for about 4 days. Patient currently lives by himself with a neighbor that watches out for him. Has life alert button and nursing from [facility] to setup meds and personal care through [facility] 4 hours a week. Covid-19 rapid was negative with chest x-ray showing questionable bilateral pneumonia and hyperinflation. Follow-up CT showed focal bilateral lower lobe pneumonias right greater than left. X-ray of the spine shows m ultiple old compression fractures unchanged with degenerative changes in L5-S1 no acute finding in the left hip or pelvis. Prior ORIF of left hip noted. Incidental 1.6 cm lucency within the right greater trochanter indicating possible cancer which was cleared by follow up pelvic CT. Patient was started on Rocephin and azithromycin. Patient was evaluated today in his room. Noted to be lying in bed, disheveled and somewhat confused. O2 per nasal cannula at 3 liters. Some conversational dyspnea noted but appears comfortable. Alert to self and place only. Mumbling randomed thoughts and states I'm joking. Follows commands without difficulty. Some grimacing when moving left leg/hip. Denies asking for anything for pain but seems willing to try some Tylenol. Able to answer yes or no ROS questions. Appeared agreeable to palliative care services, but unsure if able to comprehend due to mental status. Patient Problems: Chronic Problems (Last Reviewed 03/29/20 @ 11:06 by Devi Awad) Protein-calorie malnutrition, severe (Chronic) Insomnia (Chronic) BPH (benign prostatic hyperplasia) (Chronic) Appetite loss (Chronic) Osteoporosis (Chronic) Anxiety (Chronic) Dizziness (Chronic) History of kidney stones (Chronic) IBS (irritable bowel syndrome) (Chronic) GERD (gastroesophageal reflux disease) (Chronic) Depression (Chronic) Anemia (Chronic) Hypertension (Chronic) Chronic obstructive pulmonary disease (COPD) (Chronic) Wernicke encephalopathy (Chronic) Alcohol abuse (Chronic) Seizure disorder (Chronic) Tobacco abuse (Chronic) Surgical History: herniorrhaphy, tonsillectomy, - - Bowel obstruction intervention, tonsillectomy, hernia repair, hip surgery, tonsillectomy. Psychiatric History: Anxiety, Depression Home Medications: Ambulatory Orders Medication Instructions Recorded Trihexyphenidyl HCl 2 mg PO BID 08/10/19 buspirone 15 mg tablet 15 mg PO BID #180 tab 01/24/20 lamotrigine 200 mg tablet 200 mg PO BID tab 02/22/20 amlodipine 5 mg tablet 5 mg PO DAILY #30 tab 03/30/20 lisinopril 10 mg tablet 10 mg PO DAILY #30 tab 03/30/20 omeprazole 40 mg capsule,delayed 40 mg PO DAILY #90 cap 05/30/20 release Fluoxetine [Prozac] 20 mg PO DAILY 06/05/20 Risperidone 1 mg PO QHS 06/05/20 Tamsulosin HCl 0.4 mg PO DAILY@1830 06/05/20 Allergies bupropion HCl [From Wellbutrin] Allergy (Verified 06/17/20 22:53) SHAKING quetiapine fumarate [From Seroquel] Allergy (Verified 06/17/20 22:53) Unknown trazodone Adverse Reaction (Verified 06/17/20 22:53) SHAKING Maternal Family History: Family History (Last Reviewed 03/29/20 @ 11:06 by Devi Awad) Other Anemia Anxiety Breast cancer Cancer Depression Hypertension Osteoporosis History Items: Cancer, Hypertension Paternal Family History: Family History (Last Reviewed 03/29/20 @ 11:06 by Devi Awad) Other Anemia Anxiety Breast cancer Cancer Depression Hypertension Osteoporosis History Items: Cancer, Hypertension - Social History Lives: Alone Smoking Status: Current every day smoker Tobacco Use: Cigarettes Alcohol: Sober - Sober since November 2019. Drugs: None Review of Systems Constitutional: Reports: Weakness, Fatigue. Denies: Chills, Fever Cardiovascular: Denies: Chest Pain, Edema Respiratory: Reports: Cough, Shortness of Breath, Shortness of breath upon exertion Gastrointestinal: Denies: Abdominal Pain, Nausea Genitourinary: Denies: Dysuria Musculoskeletal: Reports: Joint Pain - left hip pain, Leg Pain Neurological: Reports: Confusion Comment: Limited ROS due to yes/no answers Physical Exam General: Alert, Cooperative, No apparent distress, Confused, - - thin elderly male HEENT: Atraumatic Oral: Moist Mucosa Neck: Supple Lungs: Diminished, Rhonchi Cardiovascular: Regular rate, Regular Rhythm, Normal S1, Normal S2, No murmurs Abdomen: Bowel Sounds Present, Soft, Non Tender, Non-Distended Extremities: No clubbing, No cyanosis, No edema Skin: No rashes Musculoskeletal: Tenderness - left leg/hip Lymphatic: No Cervical, Supraclavicular, or Inguinal Adenopathy Neurological: Cranial nerves II-XII grossly intact Psych/Mental Status: Normal Affect, - - Alert to self Objective: Vital Signs Temp Pulse Resp BP Pulse Ox 98.4 F 62 15 151/75 H 93 06/19/20 10:15 06/19/20 10:15 06/19/20 10:15 06/19/20 10:15 06/19/20 10:15 Oxygen Flow Rate (L/min) 3 Oxygen Delivery Method Nasal Cannula Weight: 53.3 kg Body Mass Index (BMI) 20.8 Finger Stick Blood Glucose 122 Intake and Output for Last 24 Hours 06/17/20 06/18/20 06/19/20 23:59 23:59 23:59 Intake Total 2610 / 2610 0 / 0 Output Total 0 / 0 Balance 2610 / 2610 0 / 0 Microbiology Past 72 Hours 06/18/20 03:05 Gram Stain - Final Sputum, Expectorated/Coughed 06/18/20 03:00 Respiratory Panel (PCR) - Final Mucosa - Nasopharyngeal 06/17/20 23:20 SARS-CoV-2 Antigen (Rapid) - Final Mucosa - Nose Assessment/Plan All Active Problems (Last Reviewed 03/29/20 @ 11:06 by Devi Awad) Pneumonia (Acute) Sepsis (Acute) Fall (Acute) Failure to thrive in adult (Acute) Dehydration (Acute) Aspiration pneumonia (Acute) Encephalopathy (Acute) Acute kidney injury (Acute) Debility (Acute) Benzodiazepine withdrawal (Resolved) Cholelithiasis (Resolved) Closed left hip fracture (Resolved) Efe Casillas is a 74-year-old male referred to [facility] for management of shortness of breath, chronic pain and debility. [facility] is looking for responsible republican for decision making for long-term placement. [facility] is willing to follow patient for symptom management at discharge. Plan is as follows: 1. Shortness of Breath: Continue medications and treatments at discharge. To encourage smoking cessation. [facility] to follow. 2. Chronic Pain: Currently only has Tylenol PRN. Palliative will monitor for increased pain and make adjustments as necessary 3. History of falls: Needs placement in LTC facility with PT/OT for strengthening with staff to monitor for safety. 4. Malnutrition: Palliative can work with LTC with medication options to assist with appetite and nutrition. 5. Depression: Medication as ordered. Palliative can assist with medication titration and offering counseling and support 6. Seizure disorder/ Wernicke's encephalopathy: Follow up PCP, neurology Thank you for the opportunity to serve your patients! Palliative Care team [phone] Time In: 10:10AM Time Out: 11:00AM Disclaimer: This note was dictated using [employer] software and may contain spelling, grammar, or other pitch gatherer errors.
--- NOTE | 2020-06-19 13:45 | PCM.PN.HOSP ---
Patient Problems: Active and Suspected Problems (Last Reviewed 03/29/20 @ 11:06 by Devi Awad) Pneumonia (Acute) Sepsis (Acute) Fall (Acute) Failure to thrive in adult (Acute) Dehydration (Acute) Aspiration pneumonia (Acute) Encephalopathy (Acute) Acute kidney injury (Acute) Debility (Acute) Reason for Visit: Follow-up on debility/bilateral pneumonia Subjective: Patient was seen and examined. He is more alert today. He is alert oriented to self. Not to place or time. Denied any fever or chills. Vitals/I&O's: Vital Signs Temp Pulse Resp BP Pulse Ox 98.4 F 62 15 151/75 H 93 06/19/20 10:15 06/19/20 10:15 06/19/20 10:15 06/19/20 10:15 06/19/20 10:15 Oxygen Flow Rate (L/min) 3 Oxygen Delivery Method Nasal Cannula Weight: 53.3 kg Body Mass Index (BMI) 20.8 Finger Stick Blood Glucose 122 Intake and Output for Last 24 Hours 06/17/20 06/18/20 06/19/20 23:59 23:59 23:59 Intake Total 2610 / 2610 70 / 70 Output Total 0 / 0 Balance 2610 / 2610 70 / 70 General: Alert, Oriented x3, Cooperative, No apparent distress HEENT: Atraumatic, PERRLA, EOMI, Normocephalic Oral: Moist Mucosa Neck: Supple Lungs: Clear to auscultation, Normal air movement Cardiovascular: Regular rate, Regular Rhythm, Normal S1, Normal S2, No murmurs Abdomen: Bowel Sounds Present, Soft, Non Tender, Non-Distended, No Hepato-splenomegaly Extremities: No edema Skin: No rashes Musculoskeletal: No Tenderness to Palpation of Joints or Extremities Lymphatic: No Cervical, Supraclavicular, or Inguinal Adenopathy Neurological: Cranial nerves II-XII grossly intact Psych/Mental Status: Normal Affect, Appropriate Microbiology Past 72 Hours 06/18/20 03:05 Sputum, Expectorated/Coughed Gram Stain - Final 06/18/20 03:00 Mucosa - Nasopharyngeal Respiratory Panel (PCR) - Final 06/17/20 23:20 Mucosa - Nose SARS-CoV-2 Antigen (Rapid) - Final Current Medications Acetaminophen (Acetaminophen 325 Mg Tablet) 650 mg PO Q6H PRN PRN PRN Reason: Pain Score 1-10 Last Admin: 06/19/20 10:35 Dose: 650 mg Documented by: Albuterol Sulfate (Albuterol 2.5 Mg/3 Ml Vial.Neb.) 2.5 mg INHALATION Q2H PRN PRN PRN Reason: Dyspnea, wheezing Albuterol/Ipratropium (Ipratropium/Albuterol Sulfate 3 Ml Ampul.Neb) 3 ml INHALATION Q6HWA.RT [facility] Last Admin: 06/19/20 06:40 Dose: 3 ml Documented by: Amlodipine Besylate (Amlodipine 5 Mg Tablet) 5 mg PO DAILY [facility] Last Admin: 06/19/20 10:34 Dose: 5 mg Documented by: Buspirone HCl (Buspirone 15 Mg Tablet) 15 mg PO BID [facility] Last Admin: 06/19/20 10:33 Dose: 15 mg Documented by: Fluoxetine HCl (Fluoxetine 20 Mg Capsule) 20 mg PO DAILY [facility] Last Admin: 06/19/20 10:34 Dose: 20 mg Documented by: Ceftriaxone Sodium 2 gm/ (Sodium Chloride) 50 mls @ 100 mls/hr IV Q24H [facility] Last Infusion: 06/18/20 21:53 Dose: Infused Documented by: Sodium Chloride () 1,000 mls @ 75 mls/hr IV .[id number] [facility] Last Admin: 06/18/20 23:19 Dose: 75 mls/hr Documented by: Azithromycin 500 mg/ Dextrose 255 mls @ 250 mls/hr IV Q24H [facility] Last Infusion: 06/18/20 23:07 Dose: Infused Documented by: Lamotrigine (Lamotrigine 100 Mg Tablet) 200 mg PO BID [facility] Last Admin: 06/19/20 10:33 Dose: 200 mg Documented by: Lisinopril (Lisinopril 10 Mg Tablet) 10 mg PO DAILY [facility] Last Admin: 06/19/20 10:34 Dose: 10 mg Documented by: Nutritional Formula (Lactose Free) (Ensure Enlive 120 Ml Liquid) 120 ml PO 4X/DAY [facility] Last Admin: 06/19/20 10:30 Dose: Not Given Documented by: Pantoprazole Sodium (Pantoprazole Sodium 40 Mg Tablet) 40 mg PO DAILY [facility] Last Admin: 06/19/20 10:34 Dose: 40 mg Documented by: Risperidone (Risperidone 1 Mg Tablet) 1 mg PO QHS [facility] Last Admin: 06/18/20 21:09 Dose: Not Given Documented by: Sodium Chloride (0.9% Saline Lock 10 Ml Syringe) 10 - 40 ml IV UD PRN PRN Reason: SALINE FLUSH Last Admin: 06/19/20 10:36 Dose: 10 ml Documented by: Tamsulosin HCl (Tamsulosin Hcl 0.4 Mg Capsule) 0.4 mg PO DAILY@1830 [facility] Last Admin: 06/18/20 21:07 Dose: Not Given Documented by: Trihexyphenidyl HCl (Trihexyphenidyl Hcl 2 Mg Tablet) 2 mg PO BID [facility] Last Admin: 06/19/20 10:34 Dose: 2 mg Documented by: STROKE Vital Signs/Narrative: Vital Signs Temp Pulse Resp BP Pulse Ox 06/19/20 10:15 98.4 F 62 15 151/75 H 93 Medical Necessity - Tobacco Use Smoking Status: Current every day smoker Tobacco Use: Cigarettes Assessment/Plan All Active Problems (Last Reviewed 03/29/20 @ 11:06 by Devi Awad) Pneumonia (Acute) Sepsis (Acute) Fall (Acute) Failure to thrive in adult (Acute) Dehydration (Acute) Aspiration pneumonia (Acute) Encephalopathy (Acute) Acute kidney injury (Acute) Debility (Acute) Benzodiazepine withdrawal (Resolved) Cholelithiasis (Resolved) Closed left hip fracture (Resolved) 1. Acute hypoxic respiratory insufficiency secondary to acute bilateral pneumonias Remains on 3 L of oxygen, will continue on breathing treatment, wean off for SPO2 more than 94% 2. Bilateral pneumonias, continue on IV ceftriaxone and azithromycin 3. Chronic compression fractures, osteoarthritis, debility PT/OT to evaluate and treat 4. Hypertension, controlled, continue on amlodipine, lisinopril 5. Anxiety/depression, continue on Prozac, risperidone 6. Seizure disorder, continue on Lamictal 7. DVT PPx- Heparin SC Inpatient E&M: 32166 Subs Hosp L2
[2020-06-19] MEDS: 0.9% Normal Saline 1,000 ML 75 ML IV (13:52)
--- NOTE | 2020-06-19 17:34 | NURSING ---
Ashlee, family friend called in requesting patient's wallet as his rent is due tomorrow. RN informed Ashlee that this information legally could not be provided at this time. Explained to her that RN will leave message on Krissy, phone to contact her tomorrow to discuss process of obtaining funds to pay for patient's rent while he is in the hospital. Ashlee voices understanding and agrees to same. RN called and left message on Krissy's voicemail with above information.
[2020-06-19] MEDS: RisperiDONE 1 MG Tablet PO (21:01)
[2020-06-19] MEDS: Heparin Injection (Vial) 5,000 UNIT/ML VIAL 5000 UNIT SC (21:01)
[2020-06-20 02:48] VITALS: BP 131/67; PULSE 57; RESP 16; TEMP 36.8; O2SAT 99
[2020-06-20] MEDS: 0.9% Normal Saline 1,000 ML 75 ML IV (02:48)
[2020-06-20 07:36] VITALS: O2SAT 96
[2020-06-20 08:48] VITALS: BP 136/73; PULSE 59; RESP 20; TEMP 36.8; O2SAT 95
--- NOTE | 2020-06-20 09:04 | CASEMGMT ---
APOORVA received a message from RAMY Loya. Patient's rent is due and his neighbor is wondering how she can do this. APOORVA called patient's heel caser, Lucía. She said normally his neighbor, Ashlee pays all of his bills. She suggested SW check in with her. She asked about the d/c plan. APOORVA told her it is being recommended he go somewhere for rehab. She said to remind patient that he went to [place] before and he actually liked it. SW thanked her for this information. APOORVA met with patient, introduced self and role at [facility]. SW mentioned to patient about his rent being due. SW asked him how he normally pays his rent. He said Ashlee usually helps him. SW asked him if Ashlee could bring his check book in so he can write a check for his rent. He said that is fine. He said she does have access to his apartment. APOORVA also discussed that going somewhere for rehab is being recommended. APOROVA told him SW heard that he has been to [place] before and he actually liked it. He kind of laughed and said he did like it. APOORVA said SW can see if they would be able to take him and he was in agreement. APOORVA called patient's friend/neighbor Ashlee. APOORVA introduced self and role at [facility]. APOORVA asked if she would be able to bring in patient's check book so he can write a check for rent. She said she can do that no problem. APOORVA also told her we are recommending patient go somewhere for rehab. APOORVA told her Lucía told SW that he went to [place] before and he liked it. She agreed and said he did like it there. APOORVA asked that she be supportive of this plan. She said absolutely she would support this plan. APOORVA went back to patient's room and let him know that Ashlee will bring in his check book for him to pay his rent. APOORVA will contact Hilaria with [facility] and also fax referral. Krissy FLOREZ
[2020-06-20] MEDS: busPIRone 15 MG TABLET PO (09:56)
[2020-06-20] MEDS: Pantoprazole Sodium 40 MG Tablet PO (09:56)
[2020-06-20] MEDS: lamoTRIgine 100 MG Tablet 200 MG PO (09:56)
[2020-06-20] MEDS: FLUoxetine 20 MG Capsule PO (09:56)
[2020-06-20] MEDS: Lisinopril 10 MG Tablet PO (09:56)
[2020-06-20] MEDS: amLODIPine 5 MG Tablet PO (09:56)
[2020-06-20] MEDS: TRIHEXYPHENIDYL HCL 2 MG TABLET PO (09:56)
[2020-06-20] MEDS: Heparin Injection (Vial) 5,000 UNIT/ML VIAL 5000 UNIT SC (10:03)
--- NOTE | 2020-06-20 10:45 | CASEMGMT ---
APOORVA spoke with [facility] and [facility] can take patient. APOORVA told her SW will let her know when he is ready. Plan: d/c to [facility] when ready. Krissy FLOREZ
--- NOTE | 2020-06-20 11:11 | CASEMGMT ---
APOORVA called Jesusita Sterling, patient's case management coordinator with [facility]. APOORVA left her a voice mail letting her know patient is going to go to [place] at discharge. Krissy RUBIN MSW
--- NOTE | 2020-06-20 11:28 | SP.MBSS_ITS ---
Modified Barium Swallow - Patient Information Study Date: 06/20/20 Study Time: 11:00 Direct Billable Minutes: 60 Total Minutes procedure & reportin Diagnosis: oropharyngeal dysphagia (R13.12) Referring Physician: Serina Covington Reason for Referral: Concern for aspiration. Medical History: The patient is a 74 y/o M w/ PMHx: Chronic anemia, Anxiety and Depression, GERD, IBS, HTN, Hx EtOH Abuse, Tobacco use, BPH who presented to [facility] ED on 06/[facility]20 s/p fall in his front yard with onset back and L hip pain; noted to have cough, dyspnea, chills and generalized weakness. Current Diet Ordered: NPO Dentition: Edentulous Respiratory Status: Oxygenating on 3L/M nasal cannula - Study Findings Consistencies: Thin Liquid, [place] Thick Liquid, Honey Thick Liquid, Pudding, Cookie - Penetration-Aspiration Scale Penetration-Aspiration Scale: OBJECTIVE ASSESSMENT OF SWALLOW FUNCTION (QUANTITATIVE ? PER TRIAL): PENETRATION / ASPIRATION SCALE (ALLAN): 1 = does not enter airway 2 = enters airway/above vocal folds/ejected 3 = enters airway/above vocal folds/not ejected 4 = enters airway/contacts vocal folds/ejected 5 = enters airway/contacts vocal folds/not ejected 6 = enters airway/below vocal folds/ejected 7 = enters airway/below vocal folds/not ejected despite effort 8 = enters airway/below vocal folds/no effort - Penetration-Aspiration Scale Score Thin Liquid via teaspoon Result: 1= does not enter airway Thin Liquid via small single sip from cup Result: 1= does not enter airway Thin Liquid via large single sip from cup Result: 2= enter airway/above vocal folds/ejected Thin Liquid via sequential sips from cup Result: 4= enters airway/contacts vocal folds/ejected Big [place] Thick Liquid via large single sip from cup Result: 4= enters airway/contacts vocal folds/ejected Honey Thick Liquid via large single sip from cup Result: 2= enter airway/above vocal folds/ejected Pudding Result: 1= does not enter airway - post prandial aspiration in trace amount with no coughing, throat clearing Cookie Result: 1= does not enter airway - lenghty mastication with delayed swallow initiation present Thin Liquid via single sip from straw Result: 4= enters airway/contacts vocal folds/ejected Thin Liquid via sequential sips from straw Result: 2= enter airway/above vocal folds/ejected - Oral Phase Labial Seal: No Labial Escape Tongue Control During Bolus Hold: Posterior escape of less than half of bolus Bolus Preparation/Mastication: Slow prolonged chewing/mashing with complete recollection Bolus Transport/Lingual Motion: Slowed tongue motion Oral Residue: Residue collection on oral structures - Pharyngeal Phase Initiation of Pharyngeal Swallow: Bolus head at posterior laryngeal surgace of epiglottis Soft Palate Elevation: No bolus between soft palate and pharyngeal wall Laryngeal Elevation: Partial superior movement thyroid cart/partial apprx aryt- epig petiole Anterior Hyoid Excursion: Partial anterior movement Epiglottic Movement: Partial inversion Laryngeal Vestibule Closure at Height of Swallow: Incomplete; narrow column of air/contrast in laryngeal vestibule Pharyngeal Stripping Wave: Present - diminished Pharyngoesophageal Segment Opening: Parital distension and partial duration; parital obstruction of flow Tongue Base Retraction: Wide column of contrast between tongue base & post. pharyngeal wall Pharyngeal Residue: Collection of residue within or on pharyngeal structures - Diagnosis/Impression Diagnosis: moderate oropharyngeal dysphagia (R13.12) Impression: The patient was seen for a modified barium swallow study this date for objective assessment of swallow function. The patient found to have penetration to the vocal cords with ejection with thin liquids via sequential sips from cup, single sip from straw, and mildly thick (nectar) from cup. No aspiration found at this date and time. The patient required frequent cues to take a second swallow to clear pharyngeal residue pooling in the vallecula. The patient trialed solid [place] cookie with effortful and disorganized mastication with several multiple swallows to clear pharyngeal residue. - Recommendations Diet: Mechanical Soft Textures, Thin Liquids Compensatory Strategies: Small Bites, Small Sips, No Straws, Multiple Swallows, Alternate bites/solids and sips/liquids, Sitting upright, Remain sitting upright for 30 minutes after PO intake Supervision: 1:1 Close Supervision Recommend Repeat Modified Barium Swallow: TBD Need for Skilled Speech Therapy Services: Yes Education Completed: 1. Described result of evaluation., 7. Pt requires further education on strategies & risks. - Status Active ST Patient: Active - Contact Information [facility] Speech Therapy:: Veda Arambula MA, [facility] [place] [id number] [email or web address]
--- NOTE | 2020-06-20 14:28 | PCM.EXTCARCO ---
- Diet 06/18/20 02:58 Regular diet with mechanical (minced/moist) food consistency and regular/thin liquid consistency. One-to-one supervision, up 90 degrees, no straws. Acute a double swallow. - Routine Orders/Code Status Enema Type: Fleetz Enema Frequency: Daily PRN Suppository Type: Dulcolax 10mg Suppository Frequency: Daily PRN O2 Liters per Minute: 2-4 O2 Frequency: Continuous Keep PO Greater than or Equal to (%): 90 - Wean as tolerated Routine Lab Work: - - CBC, BMP Code Status: DNRCC-A - No intubation - Wound(s) right esparza Wound Type: scabbed area - Suggestions for Active Care Change Position every (hours): 2 Times a day to sit in chair: 3 - Therapies Physical Therapy: Eval and Treat Occupational Therapy: Eval and Treat Speech Therapy: Eval and Treat - Problem/Diagnosis (1) Pneumonia Status: Acute (2) Failure to thrive in adult Status: Chronic (3) Protein-calorie malnutrition, severe Status: Chronic (4) BPH (benign prostatic hyperplasia) Status: Chronic (5) Hypertension Status: Chronic (6) Chronic obstructive pulmonary disease (COPD) Status: Chronic (7) Wernicke encephalopathy Status: Chronic (8) Seizure disorder Status: Chronic (9) Tobacco abuse Status: Chronic - Allergies/Procedures Done in Hospital Allergies/Adverse Reactions: Allergies bupropion HCl [From Wellbutrin] Allergy (Verified 06/17/20 22:53) SHAKING quetiapine fumarate [From Seroquel] Allergy (Verified 06/17/20 22:53) Unknown trazodone Adverse Reaction (Verified 06/17/20 22:53) SHAKING Procedures: - - Modified barium swallow - Type of Care/Length of Stay Estimated LOS: Convalescent Care Less Than 30 days Type of Care Needed: Skilled Rehab Potential: Fair Prognosis: Fair - Additional Orders/Day of Discharge H&P will serve as current which was dated: 06/18/20 Day of Discharge: 06/20/20 - Dietary and Speech Recommendations Dietitian Recommendations/Changes: As medically able, rec ROSEMARY to liberal Regular - consistency per SOAP PRESS FEEDER. Will order ONS w/ medpass for increased nutrition if consumed - Follow Up Care Primary Care Physician: Jhonatan Zapien MD [Primary Care Provider] - Please follow up with your Primary Care Physician in: 1 Week
--- NOTE | 2020-06-20 14:32 | DS.PCM_ITS ---
<Fabiola Burnette GROUP LEADER - Last Filed: 06/20/20 14:54> Discharge Date and Diagnosis - Problem List Patient Problems: Active and Suspected Problems (Last Reviewed 03/29/20 @ 11:06 by Devi Awad) Pneumonia (Acute) Fall (Acute) Dehydration (Acute) Aspiration pneumonia (Acute) Encephalopathy (Acute) Debility (Acute) Date of Admission: 06/19/20 Date of Discharge: 06/20/20 - Primary Discharge Diagnosis Acute Problems: Active Problems (Last Reviewed 03/29/20 @ 11:06 by Devi Awad) 1. Acute hypoxic respiratory insufficiency secondary to acute bilateral pneumonia 2. Debility, failure to thrive with recent fall 3. Hypertension 4. Anxiety/depression 5. Chronic anemia 6. Chronic COPD 7. History of alcohol abuse with associated seizure disorder and Warnicke encephalopathy 8. GERD 9. BPH 10. Severe protein calorie malnutrition 11. Tobacco dependence - Secondary Discharge Diagnosis Chronic Problems: Chronic Problems (Last Reviewed 03/29/20 @ 11:06 by Devi Awad) Protein-calorie malnutrition, severe (Chronic) Insomnia (Chronic) BPH (benign prostatic hyperplasia) (Chronic) Appetite loss (Chronic) Osteoporosis (Chronic) Anxiety (Chronic) Dizziness (Chronic) History of kidney stones (Chronic) IBS (irritable bowel syndrome) (Chronic) GERD (gastroesophageal reflux disease) (Chronic) Depression (Chronic) Anemia (Chronic) Hypertension (Chronic) Chronic obstructive pulmonary disease (COPD) (Chronic) Wernicke encephalopathy (Chronic) Alcohol abuse (Chronic) Seizure disorder (Chronic) Tobacco abuse (Chronic) Hospital Course and Treatment Imaging Results: Diagnostic Data Chest X-Ray 06/17/20 23:11 IMPRESSION: Possible bilateral pneumonia. Consider correlation with CT chest. Hyperinflation. Electronically Signed: Hardik Sanchez MD at 0:18 EST , Service support , Hip/Pelvis X-Ray 06/17/20 23:12 IMPRESSION: No acute findings in the pelvis or left hip. ORIF left hip. 1.6 cm lucency within the right greater trochanter which appears nonaggressive. Correlate with history of malignancy. Electronically Signed: Hardik Sanchez MD at 0:32 EST , Service support , Lumbar Spine X-Ray 06/17/20 23:12 IMPRESSION: No acute findings in the lumbar spine. Multiple old compression fractures unchanged. Degenerative changes L5-S1 noted previously. Electronically Signed: Hardik Sanchez MD at 0:23 EST , Service support , Chest CT 06/18/20 02:15 IMPRESSION: Focal bilateral lower lobe pneumonias right greater than left. Emphysematous changes. Thoracic kyphosis. Compression fractures at multiple levels in the thoracic spine age-indeterminate but probably old. If the patient has focal tenderness in the thoracic spine consider correlation with MRI. Coronary artery calcifications. Small hiatal hernia. Hyperdense cysts in the kidneys which require no further evaluation. Electronically Signed: Hardik Sanchez MD at 3:31 EST , Service support , Pelvis CT 06/18/20 02:15 IMPRESSION: Normal right hip. The right greater trochanter is normal. No abnormality to account for lucency on the recent plain film. The finding on the plain film likely represents artifact and is not of clinical significance. Atherosclerotic calcification of the distal abdominal aorta with mild ectasia/mild relative aneurysmal dilatation of distal abdominal aorta. 2.9 cm right inguinal hernia containing soft tissue and fluid. Correlate clinically. Appearance does not suggest strangulation. Compression fracture of L4 which is probably old. Electronically Signed: Hardik Sanchez MD at 4:04 EST , Service support , Operations: None Procedures: None Summary of Care Provided: The patient is a 74 year old M admitted 06/18/2020 due to mechanical fall and fatigue. 1. Acute hypoxic respiratory insufficiency secondary to acute bilateral pn eumonia-IV azithromycin and IV Rocephin during admission. Transition to oral Augmentin at discharge to complete course. Continue supplement oxygen to maintain O2 at above 90%. Wean as tolerated. Albuterol aerosols as needed. Speech therapy consulted given concern for aspiration. Continue dietary modifications per speech therapy recommendations. 2. Debility, failure to thrive with recent fall-chronic compression fractures. PT/OT. SNF at discharge for further therapy. 3. Hypertension-stable, continue amlodipine, lisinopril. 4. Anxiety/depression-on Prozac, risperidone. 5. Chronic anemia-stable. 6. Chronic COPD-as needed albuterol aerosol. 7. History of alcohol abuse with associated seizure disorder and Warnicke encephalopathy-sober. 8. GERD-continue PPI. 9. BPH-continue Flomax. 10. Severe protein calorie malnutrition-dietitian consult. 11. Tobacco dependence-encouraged cessation. Patient seen and examined prior to discharge. Physical assessment as noted below. Patient is stable for discharge with follow up recommendations as noted above. This patient was seen by ROMEO Garduno under the supervision of Dr. Covington. Patient Problems: Active and Suspected Problems (Last Reviewed 03/29/20 @ 11:06 by Devi Awad) Pneumonia (Acute) Fall (Acute) Dehydration (Acute) Aspiration pneumonia (Acute) Encephalopathy (Acute) Debility (Acute) - Physical Exam Vitals/I&O's: Vital Signs Temp Pulse Resp BP Pulse Ox 98.2 F 59 L 20 H 136/73 H 95 06/20/20 08:48 06/20/20 08:48 06/20/20 08:48 06/20/20 08:48 06/20/20 08:48 Oxygen Flow Rate (L/min) 3 Oxygen Delivery Method Nasal Cannula Weight: 117 lb 8.102 oz Body Mass Index (BMI) 20.8 Finger Stick Blood Glucose 122 Intake and Output for Last 24 Hours 06/18/20 06/19/20 06/20/20 23:59 23:59 23:59 Intake Total 2610 / 2610 1258.75 / 1258.75 Output Total 0 / 0 Balance 2610 / 2610 1258.75 / 1258.75 General: Oriented x3, Cooperative, No apparent distress HEENT: Atraumatic, PERRLA, EOMI, Normocephalic Neck: Supple, No JVD, Negative Carotid Bruits Lungs: Clear to auscultation, Diminished Cardiovascular: Regular rate, No murmurs Abdomen: Bowel Sounds Present, Soft, Non Tender, Non-Distended Extremities: No clubbing, No cyanosis, No edema, Capillary Refill Less than 3 Seconds Skin: No rashes, No breakdown Musculoskeletal: No Tenderness to Palpation of Joints or Extremities, Cachexia, Muscle Wasting Neurological: Cranial nerves II-XII grossly intact, Neuro grossly intact Psych/Mental Status: Normal Affect, Appropriate Microbiology Past 72 Hours 06/18/20 03:05 Sputum, Expectorated/Coughed Gram Stain - Final 06/18/20 03:05 Sputum, Expectorated/Coughed Respiratory Culture - Preliminary Staphylococcus aureus Mixed Charlene 06/17/20 23:25 Blood Culture (Wb) #2 - Anticubital Left Blood Culture - Preliminary No growth in 48 hours. 06/17/20 23:31 Blood Culture (Wb) - Anticubital Right Blood Culture - Preliminary No growth in 48 hours. 06/19/20 13:05 Urine, Clean Catch Legionella Antigen - Final 06/19/20 13:05 Urine, Clean Catch Streptococcus pneumoniae Antigen (M - Final 06/18/20 03:00 Mucosa - Nasopharyngeal Respiratory Panel (PCR) - Final 06/17/20 23:20 Mucosa - Nose SARS-CoV-2 Antigen (Rapid) - Final Current Medications Acetaminophen (Acetaminophen 325 Mg Tablet) 650 mg PO Q6H PRN PRN PRN Reason: Pain Score 1-10 Last Admin: 06/19/20 10:35 Dose: 650 mg Documented by: Albuterol Sulfate (Albuterol 2.5 Mg/3 Ml Vial.Neb.) 2.5 mg INHALATION Q2H PRN PRN PRN Reason: Dyspnea, wheezing Albuterol/Ipratropium (Ipratropium/Albuterol Sulfate 3 Ml Ampul.Neb) 3 ml INHALATION Q6HWA.RT [facility] Last Admin: 06/19/20 19:35 Dose: 3 ml Documented by: Amlodipine Besylate (Amlodipine 5 Mg Tablet) 5 mg PO DAILY [facility] Last Admin: 06/20/20 09:56 Dose: 5 mg Documented by: Amoxicillin/Clavulanate Potassium (Amox/Clavulanate 875 Mg Tablet) [facility] Buspirone HCl (Buspirone 15 Mg Tablet) 15 mg PO BID [facility] Last Admin: 06/20/20 09:56 Dose: 15 mg Documented by: Fluoxetine HCl (Fluoxetine 20 Mg Capsule) 20 mg PO DAILY [facility] Last Admin: 06/20/20 09:56 Dose: 20 mg Documented by: Heparin Sodium (Porcine) (Heparin Injection (Vial) 5,000 Unit/Ml Vial) 5,000 unit SC Q12 [facility] Last Admin: 06/20/20 10:03 Dose: 5,000 unit Documented by: Ceftriaxone Sodium 2 gm/ (Sodium Chloride) 50 mls @ 100 mls/hr IV Q24H [facility] Last Infusion: 06/19/20 22:02 Dose: Infused Documented by: Sodium Chloride () 1,000 mls @ 75 mls/hr IV .[id number] [facility] Last Infusion: 06/20/20 11:32 Dose: 75 mls/hr Documented by: Azithromycin 500 mg/ Dextrose 255 mls @ 250 mls/hr IV Q24H [facility] Last Infusion: 06/19/20 23:22 Dose: Infused Documented by: Lamotrigine (Lamotrigine 100 Mg Tablet) 200 mg PO BID [facility] Last Admin: 06/20/20 09:56 Dose: 200 mg Documented by: Lisinopril (Lisinopril 10 Mg Tablet) 10 mg PO DAILY [facility] Last Admin: 06/20/20 09:56 Dose: 10 mg Documented by: Pantoprazole Sodium (Pantoprazole Sodium 40 Mg Tablet) 40 mg PO DAILY [facility] Last Admin: 06/20/20 09:56 Dose: 40 mg Documented by: Risperidone (Risperidone 1 Mg Tablet) 1 mg PO QHS [facility] Last Admin: 06/19/20 21:01 Dose: 1 mg Documented by: Sodium Chloride (0.9% Saline Lock 10 Ml Syringe) 10 - 40 ml IV UD PRN PRN Reason: SALINE FLUSH Last Admin: 06/19/20 10:36 Dose: 10 ml Documented by: Tamsulosin HCl (Tamsulosin Hcl 0.4 Mg Capsule) 0.4 mg PO DAILY@1830 [facility] Last Admin: 06/19/20 17:21 Dose: Not Given Documented by: Trihexyphenidyl HCl (Trihexyphenidyl Hcl 2 Mg Tablet) 2 mg PO BID [facility] Last Admin: 06/20/20 09:56 Dose: 2 mg Documented by: Home Medications: Medications to take at Discharge Trihexyphenidyl HCl 2 mg PO BID 08/10/19 buspirone 15 mg tablet 15 mg PO BID #180 tab 01/24/20 lamotrigine 200 mg tablet 200 mg PO BID tab 02/22/20 amlodipine 5 mg tablet 5 mg PO DAILY #30 tab 03/30/20 lisinopril 10 mg tablet 10 mg PO DAILY #30 tab 03/30/20 omeprazole 40 mg capsule,delayed release 40 mg PO DAILY #90 cap 05/30/20 Fluoxetine [Prozac] 20 mg PO DAILY 06/05/20 Risperidone 1 mg PO QHS 06/05/20 Tamsulosin HCl 0.4 mg PO DAILY@1830 06/05/20 Acetaminophen [Tylenol Tablet] 650 mg PO Q6H PRN PRN tab 06/20/20 Albuterol Aerosols [Ventolin Aerosols] 2.5 mg INHALATION Q2H PRN PRN vial.neb. 06/20/20 Amox/Clavulanate Tablet [Augmentin Tablet] 875 mg PO BID tab 06/20/20 Primary Care Physician: Jhonatan Zapien MD [Primary Care Provider] - Please follow up with your Primary Care Physician in: 1 Week Disposition: Assisted facility Minutes spent on discharge:: 35 Patient Condition:: Stable Medical Necessity - Tobacco Use Smoking Status: Current every day smoker Tobacco Use: Cigarettes Meaningful Use Info Meaningful Use Diagnoses (Choose all that apply): None applicable <Serina Covington - Last Filed: 06/20/20 16:43> Discharge Date and Diagnosis - Primary Discharge Diagnosis Acute Problems: Active Problems (Last Reviewed 03/29/20 @ 11:06 by Devi Awad) Pneumonia (Acute) Fall (Acute) Dehydration (Acute) Aspiration pneumonia (Acute) Encephalopathy (Acute) Debility (Acute) - Secondary Discharge Diagnosis Chronic Problems: Chronic Problems (Last Reviewed 03/29/20 @ 11:06 by Devi Awad) Failure to thrive in adult (Chronic) Protein-calorie malnutrition, severe (Chronic) Insomnia (Chronic) BPH (benign prostatic hyperplasia) (Chronic) Appetite loss (Chronic) Osteoporosis (Chronic) Anxiety (Chronic) Dizziness (Chronic) History of kidney stones (Chronic) IBS (irritable bowel syndrome) (Chronic) GERD (gastroesophageal reflux disease) (Chronic) Depression (Chronic) Anemia (Chronic) Hypertension (Chronic) Chronic obstructive pulmonary disease (COPD) (Chronic) Wernicke encephalopathy (Chronic) Alcohol abuse (Chronic) Seizure disorder (Chronic) Tobacco abuse (Chronic) Hospital Course and Treatment Imaging Results: 06/20/20 10:55 Swallowing Function w/Video [RAD] Urgent Summary of Care Provided: This patient was seen in conjunction with Fabiola Burnette NP. I have independently interviewed and examined the patient and reviewed pertinent historical, laboratory, and other data. Please refer to her note for patient's presentation, findings, and recommendations. 74-year-old male with multiple comorbidities, who comes in after a fall and complains of severe left hip pain. Patient denied any recent illness. His work-up was unremarkable. CT of the chest and lumbar spine showed multiple old compression fractures unchanged from previous. Degenerative changes. X-ray of the pelvis and hip showed no acute findings. Patient had an infiltrate in his chest x-ray, he was managed on antibiotics for pneumonia. He was seen by PT and OT and skilled for discharge to a assisted facility. Discharged on Augmentin. The day of discharge, patient was seen and examined. No new complaints overnight. Denied any new fever or chills. Vitals were reviewed -stable Physical Exam: General: Alert, Oriented x2, oriented to self, place but not time, Cooperative, No apparent distress HEENT: Atraumatic, PERRLA, EOMI, Normocephalic Oral: Moist Mucosa Neck: Supple Lungs: Diminished at lung bases Cardiovascular: Regular rate, Regular Rhythm, Normal S1, Normal S2, No murmurs Abdomen: Bowel Sounds Present, Soft, Non Tender, Non-Distended, No Hepato- splenomegaly Extremities: No edema Skin: No rashes Musculoskeletal: No Tenderness to Palpation of Joints or Extremities Lymphatic: No Cervical, Supraclavicular, or Inguinal Adenopathy Neurological: Cranial nerves II-XII grossly intact Psych/Mental Status: Normal Affect, Appropriate - Physical Exam Vitals/I&O's: Vital Signs Temp Pulse Resp BP Pulse Ox 97.5 F L 60 17 139/73 H 95 06/20/20 15:05 06/20/20 15:05 06/20/20 15:05 06/20/20 15:05 06/20/20 15:05 Oxygen Flow Rate (L/min) 3 Oxygen Delivery Method Nasal Cannula Weight: 53.3 kg Body Mass Index (BMI) 20.8 Finger Stick Blood Glucose 122 Intake and Output for Last 24 Hours 06/18/20 06/19/20 06/20/20 23:59 23:59 23:59 Intake Total 2609 / 0 1986.1986. 1258.75 / 1258.75 Output Total 0 / 0 Balance 2609 / 261 1258.75 / 1258.75 Microbiology Past 72 Hours 06/20/20 15:35 Mucosa - Nose SARS-CoV-2 Antigen (Rapid) - Final 06/18/20 03:05 Sputum, Expectorated/Coughed Gram Stain - Final 06/18/20 03:05 Sputum, Expectorated/Coughed Respiratory Culture - Preliminary Staphylococcus aureus Mixed Charlene 06/17/20 23:25 Blood Culture (Wb) #2 - Anticubital Left Blood Culture - Preliminary No growth in 48 hours. 06/17/20 23:31 Blood Culture (Wb) - Anticubital Right Blood Culture - Preliminary No growth in 48 hours. 06/19/20 13:05 Urine, Clean Catch Legionella Antigen - Final 06/19/20 13:05 Urine, Clean Catch Streptococcus pneumoniae Antigen (M - Final 06/18/20 03:00 Mucosa - Nasopharyngeal Respiratory Panel (PCR) - Final 06/17/20 23:20 Mucosa - Nose SARS-CoV-2 Antigen (Rapid) - Final Current Medications Acetaminophen (Acetaminophen 325 Mg Tablet) 650 mg PO Q6H PRN PRN PRN Reason: Pain Score 1-10 Last Admin: 06/19/20 10:35 Dose: 650 mg Documented by: Albuterol Sulfate (Albuterol 2.5 Mg/3 Ml Vial.Neb.) 2.5 mg INHALATION Q2H PRN PRN PRN Reason: Dyspnea, wheezing Albuterol/Ipratropium (Ipratropium/Albuterol Sulfate 3 Ml Ampul.Neb) 3 ml INHALATION Q6HWA.RT [facility] Last Admin: 06/19/20 19:35 Dose: 3 ml Documented by: Amlodipine Besylate (Amlodipine 5 Mg Tablet) 5 mg PO DAILY [facility] Last Admin: 06/20/20 09:56 Dose: 5 mg Documented by: Amoxicillin/Clavulanate Potassium (Amox/Clavulanate 875 Mg Tablet) [facility] Buspirone HCl (Buspirone 15 Mg Tablet) 15 mg PO BID [facility] Last Admin: 06/20/20 09:56 Dose: 15 mg Documented by: Fluoxetine HCl (Fluoxetine 20 Mg Capsule) 20 mg PO DAILY [facility] Last Admin: 06/20/20 09:56 Dose: 20 mg Documented by: Heparin Sodium (Porcine) (Heparin Injection (Vial) 5,000 Unit/Ml Vial) 5,000 unit SC Q12 [facility] Last Admin: 06/20/20 10:03 Dose: 5,000 unit Documented by: Ceftriaxone Sodium 2 gm/ (Sodium Chloride) 50 mls @ 100 mls/hr IV Q24H [facility] Last Infusion: 06/19/20 22:02 Dose: Infused Documented by: Sodium Chloride () 1,000 mls @ 75 mls/hr IV .[id number] [facility] Last Infusion: 06/20/20 11:32 Dose: 75 mls/hr Documented by: Azithromycin 500 mg/ Dextrose 255 mls @ 250 mls/hr IV Q24H [facility] Last Infusion: 06/19/20 23:22 Dose: Infused Documented by: Lamotrigine (Lamotrigine 100 Mg Tablet) 200 mg PO BID [facility] Last Admin: 06/20/20 09:56 Dose: 200 mg Documented by: Lisinopril (Lisinopril 10 Mg Tablet) 10 mg PO DAILY [facility] Last Admin: 06/20/20 09:56 Dose: 10 mg Documented by: Pantoprazole Sodium (Pantoprazole Sodium 40 Mg Tablet) 40 mg PO DAILY [facility] Last Admin: 06/20/20 09:56 Dose: 40 mg Documented by: Risperidone (Risperidone 1 Mg Tablet) 1 mg PO QHS [facility] Last Admin: 06/19/20 21:01 Dose: 1 mg Documented by: Sodium Chloride (0.9% Saline Lock 10 Ml Syringe) 10 - 40 ml IV UD PRN PRN Reason: SALINE FLUSH Last Admin: 06/19/20 10:36 Dose: 10 ml Documented by: Tamsulosin HCl (Tamsulosin Hcl 0.4 Mg Capsule) 0.4 mg PO DAILY@1830 [facility] Last Admin: 06/19/20 17:21 Dose: Not Given Documented by: Trihexyphenidyl HCl (Trihexyphenidyl Hcl 2 Mg Tablet) 2 mg PO BID [facility] Last Admin: 06/20/20 09:56 Dose: 2 mg Documented by: Inpatient E&M: [id number] [facility]
[2020-06-20 15:05] VITALS: BP 139/73; PULSE 60; RESP 17; TEMP 36.4; O2SAT 95
--- NOTE | 2020-06-20 15:10 | PHA.DC.MR ---
Pharmacy Service has performed discharge medication reconciliation for this patient. The patient's discharge medication list was reviewed for discrepancies and discrepancies were resolved. Home Medications Trihexyphenidyl HCl 2 mg PO BID 08/10/19 buspirone 15 mg tablet 15 mg PO BID #180 tab 01/24/20 lamotrigine 200 mg tablet 200 mg PO BID tab 02/22/20 amlodipine 5 mg tablet 5 mg PO DAILY #30 tab 03/30/20 lisinopril 10 mg tablet 10 mg PO DAILY #30 tab 03/30/20 omeprazole 40 mg capsule,delayed release 40 mg PO DAILY #90 cap 05/30/20 Fluoxetine [Prozac] 20 mg PO DAILY 06/05/20 Risperidone 1 mg PO QHS 06/05/20 Tamsulosin HCl 0.4 mg PO DAILY@1830 06/05/20 Acetaminophen [Tylenol Tablet] 650 mg PO Q6H PRN PRN tab 06/20/20 Albuterol Aerosols [Ventolin Aerosols] 2.5 mg INHALATION Q2H PRN PRN vial.neb. 06/20/20 Amox/Clavulanate Tablet [Augmentin Tablet] 875 mg PO BID tab 06/20/20
--- NOTE | 2020-06-20 16:10 | CASEMGMT ---
Patient is ready to go to [facility] today. APOORVA called Hilaria with [facility] and let her know patient will be coming today. APOORVA called patient's friend Ashlee and let her know in case she wanted to see him before he leaves. APOORVA told her transport was set up for 6p. She asked if she could call him. APOORVA told her we will hang up and SW will go in his room and help him answer the phone. APOORVA went to patient's room and let him know he is all set to go to [facility] today. APOORVA also told him Ashlee is going to call and talk with him. The phone rang and SW helped patient answer. SW left the room. Convalescent was completed on . Plan: d/c to [facility] under skilled level of care on a convalescent stay. Physicians transported him via cot. Krissy RUBIN MSW
[2020-06-20] MEDS: Amox/Clavulanate 875 MG Tablet PO (17:30)
[2020-06-20] MEDS: Tamsulosin HCl 0.4 MG Capsule PO (17:30)
--- NOTE | 2020-06-20 17:52 | NURSING ---
Report called to [facility] hermos[facility] [place]
== END 2020-06-20 18:30 | DRG 193 ==
LOC: ED 06-18 01:21 → PCU 06-18 01:52
PROVIDERS: Admitting Provider Family Medicine; Emergency Provider Emergency Medicine; PCP Internal Medicine; Visit Provider Internal Medicine
DX: J15.9 Unspecified bacterial pneumonia (principal); E43 Unspecified severe protein-calorie malnutrition; J44.0 Chronic obstructive pulmonary disease with (acute) lower respiratory infection; E51.2 Wernicke's encephalopathy; M48.56XA Collapsed vertebra, not elsewhere classified, lumbar region, initial encounter for fracture; R09.02 Hypoxemia; R06.89 Other abnormalities of breathing; R62.7 Adult failure to thrive; R53.81 Other malaise; I10 Essential (primary) hypertension; F31.9 Bipolar disorder, unspecified; F41.9 Anxiety disorder, unspecified; D64.9 Anemia, unspecified; K21.9 Gastro-esophageal reflux disease without esophagitis; N40.0 Benign prostatic hyperplasia without lower urinary tract symptoms; S39.012A Strain of muscle, fascia and tendon of lower back, initial encounter; G40.909 Epilepsy, unspecified, not intractable, without status epilepticus; Z79.899 Other long term (current) drug therapy; F17.210 Nicotine dependence, cigarettes, uncomplicated; F03.90 Unspecified dementia, unspecified severity, without behavioral disturbance, psychotic disturbance, mood disturbance, and anxiety; Z66 Do not resuscitate; Z68.20 Body mass index [BMI] 20.0-20.9, adult; G89.29 Other chronic pain; F10.21 Alcohol dependence, in remission; W18.30XA Fall on same level, unspecified, initial encounter; Y93.89 Activity, other specified; Y92.008 Other place in unspecified non-institutional (private) residence as the place of occurrence of the external cause; Y99.8 Other external cause status
CPT/HCPCS: 36415; 71045; 71250; 72100; 72193; 73502; 74230; 80048; 80053; 83605; 83735; 84145; 85025; 87040; 87070; 87077; 87186; 87205; 87426; 87449; 87633; 87641; 92610; 92611; 94640; 97110; 97162; 97166; 97530; 97535; 97802; 99251; 99285; 99406; J7030; J7050; Q9967; A4216; G0463; J0696; J2405

== ENCOUNTER → 2020-08-07 15:43 | Outpatient (CLI) | payer MEDICARE, MEDICAID, SELFPAY ==
[2020-08-07 14:54] VITALS: BMI 20.3
[2020-08-07 17:24] LABS: Absolute Lymphocyte Count 3.71 X10^3/uL (0.83-4.51); Absolute Neutrophil Count 4.9 X10^3/uL (2.0-7.7); Basophil# 0.09 X10^3/uL; Basophil% 0.9 % (0-1); Eosinophil# 0.72 X10^3/uL; Eosinophils% 6.9 % (0-5); Hemoglobin 13.9 g/dL (13.0-16.5); Lymphocyte # 3.71 X10^3/ul (0.83-4.51); Lymphocyte % 35.8 % (19-41); Mean Corp Hgb Conc 31.6 g/dL (32-36); Mean Corpuscular Hgb 28.8 pg (27.0-32.0); Mean Corpuscular Volume 91.1 fL (80-94); Mean Platelet Vol. 9.6 fl (6.2-12.0); Monocyte# 0.89 X10^3/uL; Monocyte% 8.6 % (0-10); NRBC Flagged by Analyzer 0 % (0-5); Neutrophil # 4.94 X10^3/uL (2.7-7.7); Neutrophil % 47.6 % (47-70); Platelet Count 424 K/mm3 (150-450); RBC Distribution Width CV 15.2 % (11.6-14.6); RBC Distribution Width SD 51.2 fl (35.1-43.9); Red Blood Count 4.83 M/mm3 (4.6-6.2); White Blood Count 10.4 K/mm3 (4.4-11.0)
[2020-08-07 18:04] LABS: ALB/GLOB Ratio 1.1 RATIO (0.9-2.4); AST(SGOT) 8 U/L (15-37); Alanine Aminotransfer ALT/SGPT 18 U/L (16-61); Albumin, Serum 4.2 g/dL (3.2-5.0); Alkaline Phosphatase 83 U/L (45-117); Anion Gap 5 (5-15); BUN 8 mg/dL (7-18); BUN/Creat Ratio 7.1 RATIO (10-20); Calcium,Total 9.6 mg/dL (8.5-10.1); Chloride 102 mmol/L (98-107); Creatinine, Serum 1.13 mg/dL (0.70-1.30); EST Glomerular Filtration Rate 67 mL/min (>60); Est Glom Filt Rate - Afr Amer 81 mL/min (>60); Globulin 3.9 g/dL (2.2-4.2); Glucose 79 mg/dL (74-106); Potassium 4.5 mmol/L (3.5-5.1); Protein, Total 8.1 g/dL (6.4-8.2); Sodium Level 136 mmol/L (136-145)
== END ==
PROVIDERS: PCP Internal Medicine; Referring Provider Internal Medicine; Visit Provider Internal Medicine
DX: I10 Essential (primary) hypertension (principal)
CPT/HCPCS: 36415; 80053; 85025

== ENCOUNTER 2020-08-17 15:33 | Emergency (ER) | payer MEDICARE, MEDICAID, SELFPAY ==
[2020-08-07 14:54] VITALS: BMI 20.3
[2020-08-17 15:34] VITALS: BP 161/100; PULSE 69; RESP 18; TEMP 36.4; O2SAT 95; BMI 19.3
--- NOTE | 2020-08-17 16:29 | EKG12_ITS ---
Test Reason : WEAKNESS Blood Pressure : / mmHG Vent. Rate : 058 BPM Atrial Rate : 058 BPM P-R Int : 206 ms QRS Dur : 082 ms QT Int : 404 ms P-R-T Axes : 075 -17 041 degrees QTc Int : 396 ms Sinus bradycardia Low voltage QRS (Limb Leads) Confirmed by DIPAK SPRINGER, JENNIFER ([id number]), assistant editor ANNAMARIE CORTEZ ([id number]) on 08/21/2020 11:01:59 AM Referred By: JIGNA Confirmed By:JENNIFER QUESADA MD
--- NOTE | 2020-08-17 16:31 | EDS_ITS ---
HPI History of Present Illness Chief Complaint: General Illness Informant: patient and EMS Onset/Context/Timing Onset: Days Context: Gradual Onset Timing: Continuous Current Severity: Mild Maximum Severity: Mild Narrative Narrative: 74-year-old male lives at home. States he is progressively weak. He denies any nausea, vomiting, diarrhea or fever. Also states he generally feels short of breath. He denies any chest pain. He denies any cough. No hemoptysis. No leg swelling. No dysuria. No diarrhea or melena. Prior similar symptoms: Yes Recent Illness/Hospitalization: Yes [facility] Medical History (Updated 08/17/20 @ 19:[address] Bill Salmeron MD) Anemia Anxiety Depression GERD (gastroesophageal reflux disease) History of alcohol abuse History of fracture of clavicle History of kidney stones Hypertension IBS (irritable bowel syndrome) Vitamin D deficiency Home Medications trihexyphenidyl 2 mg PO BID 08/10/19 [History Last Taken Unknown] acetaminophen 650 mg PO Q6H PRN PRN tab 06/20/20 [Rx Last Taken Unknown] albuterol sulfate 2.5 mg INHALATION Q2H PRN PRN vial.neb. 06/20/20 [Rx Last Taken Unknown] risperidone 1 mg tablet 1 mg PO QHS #30 tab 06/22/20 [Rx Last Taken Unknown] amlodipine 5 mg tablet 5 mg PO DAILY #90 tablet 08/07/20 [Rx Last Taken Unknown] buspirone 15 mg tablet 15 mg PO BID #180 tab 08/07/20 [Rx Last Taken Unknown] fluoxetine 20 mg capsule 20 mg PO DAILY #90 cap 08/07/20 [Rx Last Taken Unknown] lamotrigine 200 mg tablet 200 mg PO BID #180 tablet 08/07/20 [Rx Last Taken Unknown] lisinopril 10 mg tablet 10 mg PO DAILY #180 tablet 08/07/20 [Rx Last Taken Unknown] omeprazole 40 mg capsule,delayed release 40 mg PO DAILY #90 cap 08/07/20 [Rx Last Taken Unknown] tamsulosin 0.4 mg capsule 0.4 mg PO DAILY@1830 #180 cap 08/07/20 [Rx Last Taken Unknown] Allergy/AdvReac Type Severity Reaction Status Date / Time bupropion HCl Allergy SHAKING Verified 08/07/20 14:50 [From Wellbutrin] quetiapine fumarate Allergy Unknown Verified 08/07/20 14:50 [From Seroquel] trazodone AdvReac SHAKING Verified 08/07/20 14:50 Family History Other Anemia Anxiety Breast cancer Cancer Depression Hypertension Osteoporosis Surgical History History of hip surgery History of intestinal surgery History of tonsillectomy Social History Smoking Status: Current every day smoker Tobacco: How many years used: 50 alcohol intake: former year quit: 2019 substance use type: marijuana what type of physical activity do you participate in: none ROS ROS ED Review of Systems ROS Unobtainable: Denies due to encephalopathy or due to endotracheal tube Constitutional Constitutional ED: Denies chills or fever(s) Eyes Eyes: Denies change in vision ENT ENT ED: Denies sore throat Cardiovascular Cardiovascular: Denies chest pain Respiratory/Chest Respiratory/Chest: Reports dyspnea Gastrointestinal Gastrointestinal: Denies abdominal pain, nausea or vomiting Genitourinary Genitourinary ED: Denies dysuria or hematuria Musculoskeletal Musculoskeletal: Denies myalgias Integumentary Denies abscess or rash Neurologic Neurologic: Denies headache(s) Psychiatric Psychiatric: Denies suicidal thoughts Endocrine Endocrinology: Denies polyuria Allergic/Immunologic Allergic/Immunologic ED: Denies urticaria EXAM Physical Exam Const Vital Signs: 08/17/20 15:34 08/17/20 15:38 08/17/20 17:26 Temperature 97.5 F L Temperature Source Temporal Pulse Rate 69 50 L Respiratory Rate 18 16 Respiratory Effort Normal Non-Labored Respiratory Pattern Normal Blood Pressure 161/100 H 112/75 Blood Pressure Mean 120 87 Pulse Ox 95 94 Oxygen Delivery Method Room Air Room Air 08/17/20 18:29 Temperature Temperature Source Pulse Rate 49 L Respiratory Rate 16 Respiratory Effort Respiratory Pattern Blood Pressure 135/68 H Blood Pressure Mean 90 Pulse Ox 95 Oxygen Delivery Method Room Air Positive well nourished and well developed General Appearance ED: well developed HEENT HEENT Narrative: HEENT exam unremarkable. Moist mucous membranes. Eyes PERRL and EOMs intact bilaterally Neck no lymphadenopathy and supple Chest Wall inspection of chest normal Resp normal respiratory effort and clear to auscultation bilaterally Cardio regular rate, regular rhythm and no murmurs GI normal to inspection, nondistended, normoactive bowel sounds, non-tender and n on-distended Back/Spine no CVA tenderness Extremity normal to inspection Neuro Neuro Narrative: Patient is awake and alert. He is moving all 4 extremities. He is following commands and answering questions. There is no motor weakness. Sensorium / Orientation: alert Skin no rashes or lesions noted MDM MDM MDM Narrative Medical decision making narrative: Patient brought in from home for generalized weakness and he states shortness of breath. Exam is benign. He will undergo EKG, chest and laboratory evaluation. Repeat exam 7:05 PM patient is doing well. I reviewed his labs CBC and chemistries are basically unremarkable. Troponin normal. Chest x-ray is portable 1 view interpreted by myself and the radiologist shows no acute abnormality. Chronic changes. EKG showed a sinus bradycardia rate of 58 no acute signs of [place] or ischemia and unchanged from prior EKG from May. Lab Data Attestation: I reviewed the patient's lab results. Labs: Laboratory Results - last 24 hr 08/17/20 08/17/20 16:40 16:40 WBC 6.7 RBC 4.26 L Hgb 12.0 L Hct 38.2 L MCV 89.7 MCH 28.2 MCHC 31.4 L RDW Std Deviation 49.1 H RDW Coeff of Dariela 14.9 H Plt Count 283 MPV 9.2 Immature Gran % (Auto) 0.100 Neut % (Auto) 42.7 L Lymph % (Auto) 41.2 H [place] % (Auto) 8.5 Eos % (Auto) 6.6 H Baso % (Auto) 0.9 Absolute Neuts (auto) 2.9 Absolute Lymphs (auto) 2.75 Nucleated RBC % 0 Sodium 134 L Potassium 4.8 Chloride 105 Carbon Dioxide 27.0 Anion Gap 2 L BUN 9 Creatinine 1.34 H Estim Creat Clear Calc 38.31 Est GFR (MDRD) Af Amer 67 Est GFR (MDRD) Non-Af 55 L BUN/Creatinine Ratio 6.7 L Glucose 84 Calcium 8.4 L Total Bilirubin 1.00 AST 22 ALT 14 L Alkaline Phosphatase 81 Troponin I < 0.015 Total Protein 7.3 Albumin 3.9 Globulin 3.4 Albumin/Globulin Ratio 1.1 Radiography Chest X-Ray - ED: 1 View, Read by ED Physician, Read by Radiologist, Heart, Lungs, Mediastinum, Bony Structures, No Acute Disease, Chronic Changes and Cardiomegaly Diagnostic Testing: Radiology Impression Chest X-Ray 08/17/20 16:40 IMPRESSION: Basilar atelectasis. Hyperaeration. Electronically Signed: Mahendra DO Keyshawn at 17:04 EDT Tel [phone], Service support , EKG Initial EKG: Attestation: I personally reviewed and interpreted this EKG as follows: Interpretation: Sinus Rhythm, No Acute Injury Pattern and Sinus Bradycardia Prior EKG tracings: available for review Prior: Unchanged Discharge Plan Triage Chief Complaint: General Illness Other Complaint: Weakness ED Provider: Bill Salmeron Dx/Rx/DC Orders Clinical Impression: Chronic obstructive pulmonary disease (COPD) Instructions: ED COPD Flare Prescriptions: No Action buspirone 15 mg tablet 15 mg PO BID Qty: 180 RF: 1 amlodipine 5 mg tablet 5 mg PO DAILY Qty: 90 RF: 2 fluoxetine 20 mg capsule 20 mg PO DAILY Qty: 90 RF: 2 lamotrigine 200 mg tablet 200 mg PO BID Qty: 180 RF: 2 lisinopril 10 mg tablet 10 mg PO DAILY Qty: 180 RF: 3 omeprazole 40 mg capsule,delayed release(DR/EC) 40 mg PO DAILY Qty: 90 RF: 3 tamsulosin 0.4 mg capsule 0.4 mg PO DAILY@1830 Qty: 180 RF: 2 trihexyphenidyl 2 MG tablet 2 mg PO BID RF: 0 acetaminophen 325 MG tablet 650 mg PO Q6H PRN PRN (Reason: Pain Score 1-10) RF: 0 albuterol sulfate 2.5 MG/3 ML solution for nebulization 2.5 mg INHALATION Q2H PRN PRN (Reason: Dyspnea, wheezing) RF: 0 risperidone 1 mg tablet 1 mg PO QHS Qty: 30 RF: 1 Primary Care Provider: Jhonatan Zapien Referrals: Jhonatan Zapien MD [Primary Care Provider] - 3-5 Days Activity Restrictions/Additional Instructions: Follow-up with primary care physician. Disposition Disposition: Home, self care
--- NOTE | 2020-08-17 16:40 | RAD_ITS ---
STUDY: X-RAY CHEST REASON FOR EXAM: Male, 74 years old. Weakness TECHNIQUE: Frontal view COMPARISON: 06/17/2020. FINDINGS: The lungs are hyperaerated. Basilar atelectasis. Normal size heart. Normal mediastinum and gisselle. Normal visualized pulmonary arteries. Calcified visualized aortic arch and descending thoracic aorta. Normal visualized thoracic spine. Previous ORIF of the left clavicle. There is no demonstrated abnormality of the visualized soft tissue structures of the upper abdomen. RAD/Chest 1 View (Portable) IMPRESSION: Basilar atelectasis. Hyperaeration. Electronically Signed: Mahendra Mahajan DO at 17:04 EDT Tel [phone], Service support ,
[2020-08-17] MEDS: 0.9% Normal Saline 1,000 ML 1000 ML IV (16:42)
[2020-08-17 17:01] LABS: Absolute Lymphocyte Count 2.75 X10^3/uL (0.83-4.51); Absolute Neutrophil Count 2.9 X10^3/uL (2.0-7.7); Basophil# 0.06 X10^3/uL; Basophil% 0.9 % (0-1); Eosinophil# 0.44 X10^3/uL; Eosinophils% 6.6 % (0-5); Hematocrit 38.2 % (40-54); Lymphocyte # 2.75 X10^3/ul (0.83-4.51); Lymphocyte % 41.2 % (19-41); Mean Corp Hgb Conc 31.4 g/dL (32-36); Mean Corpuscular Hgb 28.2 pg (27.0-32.0); Mean Corpuscular Volume 89.7 fL (80-94); Mean Platelet Vol. 9.2 fl (6.2-12.0); Monocyte# 0.57 X10^3/uL; Monocyte% 8.5 % (0-10); NRBC Flagged by Analyzer 0 % (0-5); Neutrophil # 2.85 X10^3/uL (2.7-7.7); Neutrophil % 42.7 % (47-70); Platelet Count 283 K/mm3 (150-450); RBC Distribution Width CV 14.9 % (11.6-14.6); RBC Distribution Width SD 49.1 fl (35.1-43.9); Red Blood Count 4.26 M/mm3 (4.6-6.2); White Blood Count 6.7 K/mm3 (4.4-11.0)
[2020-08-17 17:14] LABS: ALB/GLOB Ratio 1.1 RATIO (0.9-2.4); AST(SGOT) 22 U/L (15-37); Alanine Aminotransfer ALT/SGPT 14 U/L (16-61); Albumin, Serum 3.9 g/dL (3.2-5.0); Alkaline Phosphatase 81 U/L (45-117); Anion Gap 2 (5-15); BUN 9 mg/dL (7-18); BUN/Creat Ratio 6.7 RATIO (10-20); Calcium,Total 8.4 mg/dL (8.5-10.1); Chloride 105 mmol/L (98-107); Creatinine, Serum 1.34 mg/dL (0.70-1.30); EST Glomerular Filtration Rate 55 mL/min (>60); Est Glom Filt Rate - Afr Amer 67 mL/min (>60); Estimated Creatinine Clearance 38.31 ml/min; Globulin 3.4 g/dL (2.2-4.2); Glucose 84 mg/dL (74-106); Potassium 4.8 mmol/L (3.5-5.1); Protein, Total 7.3 g/dL (6.4-8.2); Sodium Level 134 mmol/L (136-145)
[2020-08-17 17:26] VITALS: BP 112/75; PULSE 50; RESP 16; O2SAT 94
[2020-08-17 18:29] VITALS: BP 135/68; PULSE 49; RESP 16; O2SAT 95
== END 2020-08-17 19:53 | disposition home or self-care (01) ==
PROVIDERS: Emergency Provider Emergency Medicine; PCP Internal Medicine
DX: J44.9 Chronic obstructive pulmonary disease, unspecified (principal); R53.1 Weakness; F41.9 Anxiety disorder, unspecified; F32.9 Major depressive disorder, single episode, unspecified; K21.9 Gastro-esophageal reflux disease without esophagitis; I10 Essential (primary) hypertension; F17.200 Nicotine dependence, unspecified, uncomplicated; Z79.899 Other long term (current) drug therapy; Z79.51 Long term (current) use of inhaled steroids
CPT/HCPCS: 71045; 80053; 84484; 85025; 93005; 96360; 99285; J7030

== ENCOUNTER 2020-08-26 10:27 | Inpatient (IN) | payer OTHER, MEDICARE, MEDICAID, SELFPAY ==
[2020-08-26] VITALS (8 sets, daily range): BP systolic 104–175; BP diastolic 63–103; PULSE 67–90; RESP 14–20; TEMP 36.7–37.1; O2SAT 93–96; BMI 19.0; BMI 17.5
--- NOTE | 2020-08-26 10:47 | CT_ITS ---
STUDY: CT BRAIN WITHOUT CONTRAST REASON FOR EXAM: Male, 74 years old. fall, headache RADIATION DOSAGE (If Supplied By Facility): CTDIvol = ( 44.99 ) mGy, DLP = ( 779.24 ) mGycm TECHNIQUE: Transaxial CT imaging of the brain was performed without administration of intravenous contrast material. Individualized dose optimization techniques were used for this CT. COMPARISON: 06/05/2020 FINDINGS: Small right frontal scalp hematoma. Normal calvarium. There is moderate cerebral atrophy with widening of the extra-axial spaces and ventricular dilatation. There are areas of decreased attenuation within the white matter tracts of the supratentorial brain, consistent with microvascular disease changes. Normal basal ganglia and thalami. Normal brainstem. Normal cerebellum. There is no intracranial hemorrhage. There are no findings of an acute ischemic infarction. Normal visualized paranasal sinuses. CT/Brain/Head without Contrast IMPRESSION: Small right frontal scalp hematoma. No intracranial hemorrhage Electronically Signed: Foreign Quintana MD at 12:06 EDT Tel , Service support ,
--- NOTE | 2020-08-26 10:47 | EKG12_ITS ---
Test Reason : Blood Pressure : / mmHG Vent. Rate : 086 BPM Atrial Rate : 086 BPM P-R Int : 212 ms QRS Dur : 078 ms QT Int : 376 ms P-R-T Axes : 050 -17 021 degrees QTc Int : 449 ms Sinus rhythm with 1st degree A-V block Inferior infarct , age undetermined Abnormal ECG Confirmed by CAROLANN SPRINGER, GRACY ([id number]), editor producer ANNAMARIE CORTEZ ([id number]) on 08/27/2020 1:02:49 PM Referred By: ZENIA Confirmed By:GRACY VUONG MD
--- NOTE | 2020-08-26 10:47 | CT_ITS ---
STUDY: CT CERVICAL SPINE WITHOUT CONTRAST REASON FOR EXAM: Male, 74 years old. fall, neck pain RADIATION DOSAGE (If Supplied By Facility): CTDIvol = ( 17.58 ) mGy, DLP = ( 385.20 ) mGycm TECHNIQUE: High resolution transaxial imaging was performed without contrast material. Sagittal and coronal images were reconstructed. Individualized dose optimization techniques were used for this CT. COMPARISON: 11/10/2019 FINDINGS: Normal craniovertebral junction. There are degenerative changes of the anterior atlantoaxial articulation. Normal odontoid process. Normal cervical lordosis. Normal vertebral bodies and posterior osseous elements. C2-3: Normal endplates. Normal disc height and morphology. Normal central canal and intervertebral neuroforamina. C3-4: 2 mm retrolisthesis of C3 on C4 with mild spinal stenosis and moderate right neural foraminal stenosis. C4-5: 2 mm retrolisthesis of C4 on C5 with a mild broad disc osteophyte complex produces mild spinal stenosis and moderate by lateral neural foraminal stenosis. C5-6: Normal endplates. Normal disc height and morphology. Normal central canal and intervertebral neuroforamina. C6-7: Normal endplates. Normal disc height and morphology. Normal central canal and intervertebral neuroforamina. C7-T1: Normal endplates. Normal disc height and morphology. Normal central canal and intervertebral neuroforamina. Normal visualized soft tissue structures. CT/Spine Cervical without Contras IMPRESSION: No acute fracture or subluxation. Electronically Signed: Foreign Quintana MD at 12:09 EDT Tel , Service support ,
--- NOTE | 2020-08-26 10:47 | RAD_ITS ---
STUDY: X-RAY CHEST REASON FOR EXAM: Male, 74 years old. sob TECHNIQUE: Single AP portable view of the chest. COMPARISON: 08/17/2020 FINDINGS: Poor inspiration with some bibasilar atelectasis. There is no demonstrated pleural abnormality. There is moderate cardiac enlargement. Normal mediastinum and gisselle. Normal visualized pulmonary arteries. There is atherosclerotic tortuosity of the aortic arch and descending thoracic aorta. Normal visualized thoracic spine. Healed fracture left clavicle with a superior plates and screws. There is no demonstrated abnormality of the visualized soft tissue structures of the upper abdomen. RAD/Chest 1 View (Portable) IMPRESSION: Poor inspiration with some bibasilar atelectasis. Electronically Signed: Foreign Quintana MD at 12:11 EDT Tel , Service support ,
--- NOTE | 2020-08-26 10:53 | EDS_ITS ---
HPI History of Present Illness Chief Complaint: Confusion Informant: patient Onset/Context/Timing Onset: Today Current Severity: Moderate Maximum Severity: Moderate Narrative Narrative: 74-year-old male presenting with altered mental status. Patient was found outside walking by a neighbor. When EMS arrived he was urinating in his closet. He admits to confusion. He states he woke up this morning and had hallucinations. He states he saw elephants and bears in his room. He states he did fall and hit his head on the floor 1 time. He does not believe he lost c onsciousness. He denies injury with the fall. He denies fever. Denies chest pain or shortness of breath. Prior similar symptoms: Yes Recent Illness/Hospitalization: No [facility] Medical History (Updated 08/26/20 @ 12:[address] Cornelia Cheney MD) Anemia Anxiety Depression GERD (gastroesophageal reflux disease) History of alcohol abuse History of fracture of clavicle History of kidney stones Hypertension IBS (irritable bowel syndrome) Vitamin D deficiency Home Medications trihexyphenidyl 2 mg PO BID 08/10/19 [History Last Taken Unknown] acetaminophen 650 mg PO Q6H PRN PRN tab 06/20/20 [Rx Last Taken Unknown] albuterol sulfate 2.5 mg INHALATION Q2H PRN PRN vial.neb. 06/20/20 [Rx Last Taken Unknown] risperidone 1 mg tablet 1 mg PO QHS #30 tab 06/22/20 [Rx Last Taken Unknown] amlodipine 5 mg tablet 5 mg PO DAILY #90 tablet 08/07/20 [Rx Last Taken Unknown] buspirone 15 mg tablet 15 mg PO BID #180 tab 08/07/20 [Rx Last Taken Unknown] fluoxetine 20 mg capsule 20 mg PO DAILY #90 cap 08/07/20 [Rx Last Taken Unknown] lamotrigine 200 mg tablet 200 mg PO BID #180 tablet 08/07/20 [Rx Last Taken Unknown] lisinopril 10 mg tablet 10 mg PO DAILY #180 tablet 08/07/20 [Rx Last Taken Unknown] omeprazole 40 mg capsule,delayed release 40 mg PO DAILY #90 cap 08/07/20 [Rx Last Taken Unknown] tamsulosin 0.4 mg capsule 0.4 mg PO DAILY@1830 #180 cap 08/07/20 [Rx Last Taken Unknown] Allergy/AdvReac Type Severity Reaction Status Date / Time bupropion HCl Allergy SHAKING Verified 08/26/20 10:35 [From Wellbutrin] quetiapine fumarate Allergy Unknown Verified 08/26/20 10:35 [From Seroquel] trazodone AdvReac SHAKING Verified 08/26/20 10:35 Family History Other Anemia Anxiety Breast cancer Cancer Depression Hypertension Osteoporosis Surgical History History of hip surgery History of intestinal surgery History of tonsillectomy Social History Smoking Status: Current every day smoker Tobacco: How many years used: 50 alcohol intake: former year quit: 2019 substance use type: marijuana what type of physical activity do you participate in: none ROS ROS ED Constitutional Constitutional ED: Denies fever(s) Eyes Eyes: Denies change in vision ENT ENT ED: Denies rhinorrhea or sore throat Cardiovascular Cardiovascular: Denies chest pain or palpitations Respiratory/Chest Respiratory/Chest: Denies cough or dyspnea Gastrointestinal Gastrointestinal: Denies abdominal pain, diarrhea, nausea or vomiting Genitourinary Genitourinary ED: Denies dysuria Musculoskeletal Musculoskeletal: Denies myalgias Integumentary Denies rash Neurologic Neurologic: Reports headache(s); Denies paresthesias or weakness Psychiatric Psychiatric: Denies suicidal thoughts EXAM Physical Exam Const Vital Signs: 08/26/20 10:32 08/26/20 12:46 Temperature 98.5 F 98.1 F Temperature Source Oral Oral Pulse Rate 90 84 Respiratory Rate 14 18 Blood Pressure 175/103 H 150/95 H Blood Pressure Mean 127 113 Pulse Ox 94 94 Oxygen Delivery Method Room Air Room Air Positive well nourished and well developed General Appearance ED: well developed HEENT Reports normocephalic and head/scalp atraumatic Eyes PERRL and EOMs intact bilaterally Neck supple Neck Narrative: No midline tenderness General: Negative for tenderness Chest Wall inspection of chest normal Resp normal respiratory effort and clear to auscultation bilaterally Cardio regular rate and regular rhythm GI non-tender and non-distended Palpation: soft; Negative for guarding or rebound tenderness present no CVA tenderness Extremity normal to inspection Extremity Narrative: Active full range of motion Neuro oriented x3 and CN's II-XII intact bilaterally Neuro Narrative: NIH 0 Sensorium / Orientation: alert Motor Exam: strength 5/5 throughout Psych mental status grossly normal Skin no rashes or lesions noted MDM MDM MDM Narrative Medical decision making narrative: On reevaluation, patient continues to be confused. He lives alone. Discussed with hospitalist for admission. Lab Data Attestation: I reviewed the patient's lab results. Labs: Laboratory Results - last 24 hr 08/26/20 08/26/20 08/26/20 11:25 11:25 11:25 WBC 8.4 RBC 4.43 L Hgb 12.4 L Hct 39.2 L MCV 88.5 MCH 28.0 MCHC 31.6 L RDW Std Deviation 50.4 H RDW Coeff of Dariela 15.5 H Plt Count 329 MPV 9.2 Immature Gran % (Auto) 0.200 Neut % (Auto) 68.0 Lymph % (Auto) 18.5 L [place] % (Auto) 8.7 Eos % (Auto) 3.9 Baso % (Auto) 0.7 Absolute Neuts (auto) 5.7 Absolute Lymphs (auto) 1.55 Nucleated RBC % 0 Sodium 139 Potassium 3.7 Chloride 103 Carbon Dioxide 29.0 Anion Gap 7 BUN 7 Creatinine 1.05 Estim Creat Clear Calc 48.02 Est GFR (MDRD) Af Amer 89 Est GFR (MDRD) Non-Af 73 BUN/Creatinine Ratio 6.7 L Glucose 90 Lactic Acid Calcium 9.6 Total Bilirubin 0.60 AST 13 L ALT 12 L Alkaline Phosphatase 87 Ammonia Troponin I < 0.015 Total Protein 7.7 Albumin 3.9 Globulin 3.8 Albumin/Globulin Ratio 1.0 Urine Color Urine Clarity Urine pH Ur Specific [place] Urine Protein Urine Glucose (UA) Urine Ketones Urine Occult Blood Urine Nitrite Urine Bilirubin Urine Urobilinogen Ur Leukocyte Esterase Urine RBC Urine WBC Ur Squamous Epith Cells Urine Bacteria Urine Mucus Urine Opiates Screen Urine Methadone Screen Ur Barbiturates Screen Ur Phencyclidine Scrn Ur Amphetamines Screen U Methamphetamin-MDMA U Benzodiazepines Scrn Urine Cocaine Screen U Cannabinoids Screen Ur Drug Screen Comment Ethyl Alcohol < 3.0 08/26/20 08/26/20 08/26/20 11:25 11:25 11:30 WBC RBC Hgb Hct MCV MCH MCHC RDW Std Deviation RDW Coeff of Dariela Plt Count MPV Immature Gran % (Auto) Neut % (Auto) Lymph % (Auto) Page % (Auto) Eos % (Auto) Baso % (Auto) Absolute Neuts (auto) Absolute Lymphs (auto) Nucleated RBC % Sodium Potassium Chloride Carbon Dioxide Anion Gap BUN Creatinine Estim Creat Clear Calc Est GFR (MDRD) Af Amer Est GFR (MDRD) Non-Af BUN/Creatinine Ratio Glucose Lactic Acid 1.2 Calcium Total Bilirubin AST ALT Alkaline Phosphatase Ammonia 13.0 Troponin I Total Protein Albumin Globulin Albumin/Globulin Ratio Urine Color Yellow Urine Clarity Clear Urine pH 6.5 Ur Specific [place] 1.010 Urine Protein Negative Urine Glucose (UA) Normal Urine Ketones Negative Urine Occult Blood Negative Urine Nitrite Negative Urine Bilirubin Negative Urine Urobilinogen Normal Ur Leukocyte Esterase Negative Urine RBC 0 SEEN Urine WBC 0 SEEN Ur Squamous Epith Cells 0 SEEN Urine Bacteria 0 SEEN Urine Mucus 0 SEEN Urine Opiates Screen Urine Methadone Screen Ur Barbiturates Screen Ur Phencyclidine Scrn Ur Amphetamines Screen U Methamphetamin-MDMA U Benzodiazepines Scrn Urine Cocaine Screen U Cannabinoids Screen Ur Drug Screen Comment Ethyl Alcohol 08/26/20 11:30 WBC RBC Hgb Hct MCV MCH MCHC RDW Std Deviation RDW Coeff of Dariela Plt Count MPV Immature Gran % (Auto) Neut % (Auto) Lymph % (Auto) Page % (Auto) Eos % (Auto) Baso % (Auto) Absolute Neuts (auto) Absolute Lymphs (auto) Nucleated RBC % Sodium Potassium Chloride Carbon Dioxide Anion Gap BUN Creatinine Estim Creat Clear Calc Est GFR (MDRD) Af Amer Est GFR (MDRD) Non-Af BUN/Creatinine Ratio Glucose Lactic Acid Calcium Total Bilirubin AST ALT Alkaline Phosphatase Ammonia Troponin I Total Protein Albumin Globulin Albumin/Globulin Ratio Urine Color Urine Clarity Urine pH Ur Specific [place] Urine Protein Urine Glucose (UA) Urine Ketones Urine Occult Blood Urine Nitrite Urine Bilirubin Urine Urobilinogen Ur Leukocyte Esterase Urine RBC Urine WBC Ur Squamous Epith Cells Urine Bacteria Urine Mucus Urine Opiates Screen NEGATIVE Urine Methadone Screen NEGATIVE Ur Barbiturates Screen NEGATIVE Ur Phencyclidine Scrn NEGATIVE Ur Amphetamines Screen NEGATIVE U Methamphetamin-MDMA NEGATIVE U Benzodiazepines Scrn NEGATIVE Urine Cocaine Screen NEGATIVE U Cannabinoids Screen NEGATIVE Ur Drug Screen Comment Ethyl Alcohol Radiography Chest X-Ray - ED: 1 View, Read by ED Physician and Read by Radiologist Diagnostic Testing: Radiology Impression Brain CT 08/26/20 10:47 IMPRESSION: Small right frontal scalp hematoma. No intracranial hemorrhage Electronically Signed: Foreign Quintana MD at 12:06 EDT Tel , Service support , Cervical Spine CT 08/26/20 10:47 IMPRESSION: No acute fracture or subluxation. Electronically Signed: Foreign Quintana MD at 12:09 EDT Tel , Service support , Chest X-Ray 08/26/20 10:47 IMPRESSION: Poor inspiration with some bibasilar atelectasis. Electronically Signed: Foreign Quintana MD at 12:11 EDT Tel , Service support , EKG Initial EKG: Attestation: I personally reviewed and interpreted this EKG as follows: Interpretation: Sinus Rhythm and No Acute Injury Pattern Discharge Plan Triage Chief Complaint: Confusion ED Provider: Cornelia Cheney Dx/Rx/DC Orders Clinical Impression: Altered mental status Prescriptions: No Action buspirone 15 mg tablet 15 mg PO BID Qty: 180 RF: 1 amlodipine 5 mg tablet 5 mg PO DAILY Qty: 90 RF: 2 fluoxetine 20 mg capsule 20 mg PO DAILY Qty: 90 RF: 2 lamotrigine 200 mg tablet 200 mg PO BID Qty: 180 RF: 2 lisinopril 10 mg tablet 10 mg PO DAILY Qty: 180 RF: 3 omeprazole 40 mg capsule,delayed release(DR/EC) 40 mg PO DAILY Qty: 90 RF: 3 tamsulosin 0.4 mg capsule 0.4 mg PO DAILY@1830 Qty: 180 RF: 2 trihexyphenidyl 2 MG tablet 2 mg PO BID RF: 0 acetaminophen 325 MG tablet 650 mg PO Q6H PRN PRN (Reason: Pain Score 1-10) RF: 0 albuterol sulfate 2.5 MG/3 ML solution for nebulization 2.5 mg INHALATION Q2H PRN PRN (Reason: Dyspnea, wheezing) RF: 0 risperidone 1 mg tablet 1 mg PO QHS Qty: 30 RF: 1 Primary Care Provider: Jhonatan Zapien Referrals: Jhonatan Zapien MD [Primary Care Provider] - Disposition Disposition: Acute Care Hospital [facility] [place] [facility]
[2020-08-26 11:37] LABS: Bacteria 0 SEEN /hpf (None Seen); Mucous, Urine 0 SEEN /hpf (<or=2+); Red Blood Cells-Urine 0 SEEN /hpf (0-5); Squamous Epithelial Cells - UA 0 SEEN /hpf (0-5); White Blood Cells 0 SEEN /hpf (0-5)
[2020-08-26 11:43] LABS: Color, Urine Yellow (Yellow); Glucose, Dipstick Normal (Normal); Ketone-Dipstick Negative (Negative); Leukocyte Esterase-Dipstick Negative /ul (Negative); Nitrite-Dipstick Negative (Negative); Occult Blood-Urine Negative /ul (Negative); Protein-Dipstick Negative (Negative); Urine Bilirubin Dipstick Negative (Negative); Urine Clarity Clear (Clear); Urine Urobilinogen Normal (Normal); Urine pH 6.5 (5.0 - 8.0)
[2020-08-26 11:46] LABS: Absolute Lymphocyte Count 1.55 X10^3/uL (0.83-4.51); Absolute Neutrophil Count 5.7 X10^3/uL (2.0-7.7); Basophil# 0.06 X10^3/uL; Basophil% 0.7 % (0-1); Eosinophil# 0.33 X10^3/uL; Eosinophils% 3.9 % (0-5); Hematocrit 39.2 % (40-54); Hemoglobin 12.4 g/dL (13.0-16.5); Lymphocyte # 1.55 X10^3/ul (0.83-4.51); Lymphocyte % 18.5 % (19-41); Mean Corp Hgb Conc 31.6 g/dL (32-36); Mean Corpuscular Volume 88.5 fL (80-94); Mean Platelet Vol. 9.2 fl (6.2-12.0); Monocyte# 0.73 X10^3/uL; Monocyte% 8.7 % (0-10); NRBC Flagged by Analyzer 0 % (0-5); Neutrophil # 5.68 X10^3/uL (2.7-7.7); Platelet Count 329 K/mm3 (150-450); RBC Distribution Width CV 15.5 % (11.6-14.6); RBC Distribution Width SD 50.4 fl (35.1-43.9); Red Blood Count 4.43 M/mm3 (4.6-6.2); White Blood Count 8.4 K/mm3 (4.4-11.0)
[2020-08-26 11:55] LABS: Amphetamine Urine VISTA NEGATIVE (<1000 ng/mL); Barbiturate Urine VISTA NEGATIVE (< 200 ng/mL); Benzodiazepine Urine VISTA NEGATIVE (< 200 ng/mL); Cocaine Urine VISTA NEGATIVE (< 300 ng/mL); Ecstacy Urine VISTA NEGATIVE (< 500 ng/mL); Methadone Urine VISTA NEGATIVE (< 300 ng/mL); PCP Urine VISTA NEGATIVE (< 25 ng/mL); THC Urine VISTA NEGATIVE (< 50 ng/mL); Vista UDS pH Range 6
[2020-08-26 11:57] LABS: AST(SGOT) 13 U/L (15-37); Alanine Aminotransfer ALT/SGPT 12 U/L (16-61); Albumin, Serum 3.9 g/dL (3.2-5.0); Alcohol, Blood (Medical)-Serum < 3.0 mg/dL; Alkaline Phosphatase 87 U/L (45-117); Anion Gap 7 (5-15); BUN 7 mg/dL (7-18); BUN/Creat Ratio 6.7 RATIO (10-20); Calcium,Total 9.6 mg/dL (8.5-10.1); Chloride 103 mmol/L (98-107); Creatinine, Serum 1.05 mg/dL (0.70-1.30); EST Glomerular Filtration Rate 73 mL/min (>60); Est Glom Filt Rate - Afr Amer 89 mL/min (>60); Estimated Creatinine Clearance 48.02 ml/min; Globulin 3.8 g/dL (2.2-4.2); Glucose 90 mg/dL (74-106); Potassium 3.7 mmol/L (3.5-5.1); Protein, Total 7.7 g/dL (6.4-8.2); Sodium Level 139 mmol/L (136-145)
[2020-08-26 12:00] LABS: Lactic Acid 1.2 mmol/L (0.4-1.9)
--- NOTE | 2020-08-26 13:43 | PCM.HP.STD ---
HPI - General General Date of Admission: 08/26/20 HPI Narrative ANA RIVERA, is a 74 M who presents with multiple comorbidities as listed above was brought by EMS for altered mental status. As per EMS note, patient was found urinating in closet, outside walking in the neighborhood and looked confused and disoriented. Patient also woke up in the morning with visual hallucinations mainly seeing elephants and bears in the room. Patient also has recurrent fall probably twice in the last 1 or 2 weeks and is mild swelling over right supraorbital margin but no laceration or wound. Patient was recently discharged to senior care in June 2020 after management for acute hypoxic respiratory secondary to bilateral pneumonia debility and fall. [facility] Medical History (Updated 08/26/20 @ 12:[address] Cornelia Cheney MD) Anemia Anxiety Depression GERD (gastroesophageal reflux disease) History of alcohol abuse History of fracture of clavicle History of kidney stones Hypertension IBS (irritable bowel syndrome) Vitamin D deficiency Home Medications trihexyphenidyl 2 mg PO BID 08/10/19 [History Last Taken Unknown] acetaminophen 650 mg PO Q6H PRN PRN tab 06/20/20 [Rx Last Taken Unknown] albuterol sulfate 2.5 mg INHALATION Q2H PRN PRN vial.neb. 06/20/20 [Rx Last Taken Unknown] risperidone 1 mg tablet 1 mg PO QHS #30 tab 06/22/20 [Rx Last Taken Unknown] amlodipine 5 mg tablet 5 mg PO DAILY #90 tablet 08/07/20 [Rx Last Taken Unknown] buspirone 15 mg tablet 15 mg PO BID #180 tab 08/07/20 [Rx Last Taken Unknown] fluoxetine 20 mg capsule 20 mg PO DAILY #90 cap 08/07/20 [Rx Last Taken Unknown] lamotrigine 200 mg tablet 200 mg PO BID #180 tablet 08/07/20 [Rx Last Taken Unknown] lisinopril 10 mg tablet 10 mg PO DAILY #180 tablet 08/07/20 [Rx Last Taken Unknown] omeprazole 40 mg capsule,delayed release 40 mg PO DAILY #90 cap 08/07/20 [Rx Last Taken Unknown] tamsulosin 0.4 mg capsule 0.4 mg PO DAILY@1830 #180 cap 08/07/20 [Rx Last Taken Unknown] Allergy/AdvReac Type Severity Reaction Status Date / Time bupropion HCl Allergy SHAKING Verified 08/26/20 10:35 [From Wellbutrin] quetiapine fumarate Allergy Unknown Verified 08/26/20 10:35 [From Seroquel] trazodone AdvReac SHAKING Verified 08/26/20 10:35 Family History Other Anemia Anxiety Breast cancer Cancer Depression Hypertension Osteoporosis Surgical History History of hip surgery History of intestinal surgery History of tonsillectomy Social History Smoking Status: Current every day smoker Tobacco: How many years used: 50 alcohol intake: former year quit: 2019 substance use type: marijuana what type of physical activity do you participate in: none ROS ROS Narrative Denies dysuria but patient has chronic increased frequency every 1-2 hours. In ED he had urinal beside seen and there was only 50-100 mL clear urine. No fever or chills. No cough or shortness of breath. Rest 12 ROS are unobtainable as patient has dementia and confusion. Vital Signs Vital Signs Vital Signs: 08/26/20 10:32 08/26/20 12:46 08/26/20 12:52 Temperature 98.5 F 98.1 F 98.1 F Temperature Source Oral Oral Oral Pulse Rate 90 84 84 Respiratory Rate 14 18 18 Blood Pressure 175/103 H 150/95 H 150/95 H Blood Pressure Mean 127 113 113 Pulse Ox 94 94 94 Oxygen Delivery Method Room Air Room Air Room Air Physical Exam Narrative General: Awake, Oriented x3, Cooperative HEENT: Atraumatic, PERRLA, EOMI, Normocephalic, mild swelling over right supraorbital margin, mild tenderness/scalp hematoma. No laceration. Oral: No Gingival or Mucosal Lesions/ Ulcerations Neck: Supple, No JVD, Negative Carotid Bruits Lungs: Air entry diminished in bilateral lung bases. No crepitation/rhonchi Cardiovascular: Regular rate, Regular Rhythm, Normal S1, Normal S2, systolic ejection murmur over right second ICS Abdomen: Bowel Sounds Present, Soft, Non Tender, Non-Distended : No renal angle tenderness. No suprapubic tenderness. Extremities: No edema, Capillary Refill Less than 3 Seconds Skin: No rashes, No breakdown Musculoskeletal/spine: Moderate muscle atrophy of extremities and loss of subcutaneous fat. No Tenderness to Palpation of Joints or Extremities. Kyphosis present Neurological: Cranial nerves II-XII grossly intact, Deep Tendon Reflexes 2+/4 and Symmetrical, Neuro grossly intact Psych/Mental Status: Amnesia and dementia. Lab / Micro Data Result Diagrams: 08/26/20 11:25 08/26/20 11:25 Labs: Laboratory Results - last 24 hr 08/26/20 08/26/20 08/26/20 11:25 11:25 11:25 WBC 8.4 RBC 4.43 L Hgb 12.4 L Hct 39.2 L MCV 88.5 MCH 28.0 MCHC 31.6 L RDW Std Deviation 50.4 H RDW Coeff of Dariela 15.5 H Plt Count 329 MPV 9.2 Immature Gran % (Auto) 0.200 Neut % (Auto) 68.0 Lymph % (Auto) 18.5 L [place] % (Auto) 8.7 Eos % (Auto) 3.9 Baso % (Auto) 0.7 Absolute Neuts (auto) 5.7 Absolute Lymphs (auto) 1.55 Nucleated RBC % 0 Sodium 139 Potassium 3.7 Chloride 103 Carbon Dioxide 29.0 Anion Gap 7 BUN 7 Creatinine 1.05 Estim Creat Clear Calc 48.02 Est GFR (MDRD) Af Amer 89 Est GFR (MDRD) Non-Af 73 BUN/Creatinine Ratio 6.7 L Glucose 90 Lactic Acid Calcium 9.6 Total Bilirubin 0.60 AST 13 L ALT 12 L Alkaline Phosphatase 87 Ammonia Troponin I < 0.015 Total Protein 7.7 Albumin 3.9 Globulin 3.8 Albumin/Globulin Ratio 1.0 Urine Color Urine Clarity Urine pH Ur Specific [place] Urine Protein Urine Glucose (UA) Urine Ketones Urine Occult Blood Urine Nitrite Urine Bilirubin Urine Urobilinogen Ur Leukocyte Esterase Urine RBC Urine WBC Ur Squamous Epith Cells Urine Bacteria Urine Mucus Urine Opiates Screen Urine Methadone Screen Ur Barbiturates Screen Ur Phencyclidine Scrn Ur Amphetamines Screen U Methamphetamin-MDMA U Benzodiazepines Scrn Urine Cocaine Screen U Cannabinoids Screen Ur Drug Screen Comment Ethyl Alcohol < 3.0 08/26/20 08/26/20 08/26/20 11:25 11:25 11:30 WBC RBC Hgb Hct MCV MCH MCHC RDW Std Deviation RDW Coeff of Dariela Plt Count MPV Immature Gran % (Auto) Neut % (Auto) Lymph % (Auto) [place] % (Auto) Eos % (Auto) Baso % (Auto) Absolute Neuts (auto) Absolute Lymphs (auto) Nucleated RBC % Sodium Potassium Chloride Carbon Dioxide Anion Gap BUN Creatinine Estim Creat Clear Calc Est GFR (MDRD) Af Amer Est GFR (MDRD) Non-Af BUN/Creatinine Ratio Glucose Lactic Acid 1.2 Calcium Total Bilirubin AST ALT Alkaline Phosphatase Ammonia 13.0 Troponin I Total Protein Albumin Globulin Albumin/Globulin Ratio Urine Color Yellow Urine Clarity Clear Urine pH 6.5 Ur Specific [place] 1.010 Urine Protein Negative Urine Glucose (UA) Normal Urine Ketones Negative Urine Occult Blood Negative Urine Nitrite Negative Urine Bilirubin Negative Urine Urobilinogen Normal Ur Leukocyte Esterase Negative Urine RBC 0 SEEN Urine WBC 0 SEEN Ur Squamous Epith Cells 0 SEEN Urine Bacteria 0 SEEN Urine Mucus 0 SEEN Urine Opiates Screen Urine Methadone Screen Ur Barbiturates Screen Ur Phencyclidine Scrn Ur Amphetamines Screen U Methamphetamin-MDMA U Benzodiazepines Scrn Urine Cocaine Screen U Cannabinoids Screen Ur Drug Screen Comment Ethyl Alcohol 08/26/20 11:30 WBC RBC Hgb Hct MCV MCH MCHC RDW Std Deviation RDW Coeff of Dariela Plt Count MPV Immature Gran % (Auto) Neut % (Auto) Lymph % (Auto) [place] % (Auto) Eos % (Auto) Baso % (Auto) Absolute Neuts (auto) Absolute Lymphs (auto) Nucleated RBC % Sodium Potassium Chloride Carbon Dioxide Anion Gap BUN Creatinine Estim Creat Clear Calc Est GFR (MDRD) Af Amer Est GFR (MDRD) Non-Af BUN/Creatinine Ratio Glucose Lactic Acid Calcium Total Bilirubin AST ALT Alkaline Phosphatase Ammonia Troponin I Total Protein Albumin Globulin Albumin/Globulin Ratio Urine Color Urine Clarity Urine pH Ur Specific [place] Urine Protein Urine Glucose (UA) Urine Ketones Urine Occult Blood Urine Nitrite Urine Bilirubin Urine Urobilinogen Ur Leukocyte Esterase Urine RBC Urine WBC Ur Squamous Epith Cells Urine Bacteria Urine Mucus Urine Opiates Screen NEGATIVE Urine Methadone Screen NEGATIVE Ur Barbiturates Screen NEGATIVE Ur Phencyclidine Scrn NEGATIVE Ur Amphetamines Screen NEGATIVE U Methamphetamin-MDMA NEGATIVE U Benzodiazepines Scrn NEGATIVE Urine Cocaine Screen NEGATIVE U Cannabinoids Screen NEGATIVE Ur Drug Screen Comment Ethyl Alcohol Micro: Microbiology 08/26/20 11:25 SARS-CoV-2 Antigen (Rapid) - Final Interface Orders Radiology Impression Brain CT 05/09/21 10:47 IMPRESSION: Small right frontal scalp hematoma. No intracranial hemorrhage Electronically Signed: Foreign Quintana MD at 12:06 EDT Tel , Service support , Cervical Spine CT 08/26/20 10:47 IMPRESSION: No acute fracture or subluxation. Electronically Signed: Foreign Quintana MD at 12:09 EDT Tel , Service support , Chest X-Ray 08/26/20 10:47 IMPRESSION: Poor inspiration with some bibasilar atelectasis. Electronically Signed: Foreign Quintana MD at 12:11 EDT Tel , Service support , Assessment & Plan Assessment/Plan (1) Altered mental status: PLAN: 1. Altered mental status with history of chronic alcohol use, Warnicke's encephalopathy, dementia and seizure disorder: Patient is being admitted MedSurg floor. IV fluid resuscitation. Orientation cues. UA is negative. CT brain shows a small right frontal scalp hematoma but no ICH. CT C-spine and chest x-ray no acute findings. Chest x-ray bibasilar atelectasis. Incentive spirometry. PT OT and speech evaluation. 2. COPD history with recent discharge after treatment bilateral pneumonia in June 2020: Bronchodilator as needed. Incentive spirometry. 3. Chronic compression fractures, osteoarthritis, debility with recurrent fall. 4. Hypertension, uncontrolled: Elevated. Home medication regimen. IV hydralazine as needed for systolic blood pressure more than 90 mmHg. 5. Anxiety/depression: On home medications Prozac, risperidone 6. Seizure disorder, continue on Lamictal 7. VTE prophylaxis:- Heparin 5000 SC twice daily. Discontinue if platelet count drops less than 50,000 or hemoglobin less than 8 g% Living will/advanced directive/end of life care: Patient does not have living will or advanced directive. He lives alone. No designated power of estate planning attorney for health. After discussion of benefits/risks procedures involved with full code, DNR CC arrest and DNR CC, the patient opted for DNR-CC Arrest with no intubation and he is very clear, when comes he wants to go and no resuscitation. Given the patient has history of dementia but I believe he does statement and similar was found during previous admission by my colleague. Patient does not want artificial life support including intubation, tube feed, ventilator and/chest compression, central venous catheter, vasopressor and DC shock if needed Total time spent in [id number] encounter in discussion of advanced directive 16 minutes. Clinical Impression(s) from Imaging Studies Brain CT 08/26/20 10:47 IMPRESSION: Small right frontal scalp hematoma. No intracranial hemorrhage Cervical Spine CT 08/26/20 10:47 IMPRESSION: No acute fracture or subluxation. Chest X-Ray 08/26/20 10:47 IMPRESSION: Poor inspiration with some bibasilar atelectasis. Electronically Signed: Foreign Quintana MD at 12:11 EDT Tel , Service support , (2) Fall: QUALIFIERS: Encounter type: initial encounter Qualified Code(s): W19.XXXA - Unspecified fall, initial encounter (3) Failure to thrive in adult: (4) Protein-calorie malnutrition, severe: Visit Charges Inpatient E&M: 60423 Init Hosp L3 Procedures Hospitalists Procedures: 67393 Advncd Care Plan 30 Min
[2020-08-26 13:53] LABS: Magnesium 2.2 mg/dL (1.6-2.6)
--- NOTE | 2020-08-26 14:07 | NURSING ---
pt confused at times. unable to get good histroy
[2020-08-26] MEDS: Lactated Ringers 1,000 ML 100 ML IV (16:39)
[2020-08-26] MEDS: Psyllium 1 PACKET PO (16:39)
[2020-08-26] MEDS: Heparin Injection (Vial) 5,000 UNIT/ML VIAL 5000 UNIT SC (22:06)
[2020-08-26] MEDS: Senna/Docusate Sodium 1 Tablet 2 TABLET PO (22:06)
[2020-08-27 02:14] VITALS: BP 108/58; PULSE 60; RESP 16; TEMP 36.9; O2SAT 92
[2020-08-27] MEDS: 0.9% Saline Lock 10 ML Syringe IV (02:32)
[2020-08-27 06:18] LABS: International Normalized Ratio 1.2; Prothrombin Time (Protime)PT. 14.1 SECONDS (11.7-14.9)
[2020-08-27 06:41] LABS: Anion Gap 6 (5-15); BUN 10 mg/dL (7-18); BUN/Creat Ratio 9.8 RATIO (10-20); Calcium,Total 8.7 mg/dL (8.5-10.1); Chloride 105 mmol/L (98-107); Creatinine, Serum 1.02 mg/dL (0.70-1.30); EST Glomerular Filtration Rate 76 mL/min (>60); Est Glom Filt Rate - Afr Amer 92 mL/min (>60); Estimated Creatinine Clearance 45.74 ml/min; Glucose 87 mg/dL (74-106); Potassium 3.7 mmol/L (3.5-5.1); Sodium Level 140 mmol/L (136-145)
[2020-08-27 07:22] VITALS: O2SAT 94
[2020-08-27 10:05] VITALS: BP 87/52; PULSE 65; RESP 18; TEMP 36.8; O2SAT 92
[2020-08-27 10:07] VITALS: BP 96/57
[2020-08-27] MEDS: Psyllium 1 PACKET PO (10:15)
[2020-08-27] MEDS: Heparin Injection (Vial) 5,000 UNIT/ML VIAL 5000 UNIT SC ×2 (10:15→21:23)
[2020-08-27] MEDS: Senna/Docusate Sodium 1 Tablet 2 TABLET PO (10:15)
--- NOTE | 2020-08-27 11:55 | CASEMGMT ---
RN CM Face to Face with patient for initial transition planning/care coordination assessment. RN CM introduced self and role at [facility]. Patient lying in bed, alert and oriented. Patient willing to participate in assessment and is able to answer all questions appropriately. Care providers, pharmacy, and demographics verified. Patient wishes to discharge home and would like HHC at discharge. Patient states he has no further needs or concerns at this time. CM to follow for discharge planning needs that may arise. PCP: Rupali Specialists: none Preferred Pharmacy: [facility] Insurance: [facility] Prescription Benefit: yes Living Will/HPOA: none LNOK: sister, friend, caregiver Living Arrangements: Patient lives alone in a first floor apartment with 3 steps and railing to enter the home. Patient states he is independent. Transportation: sister or taxi DME/HHC: Patient states he has walker at home. Patient has had [facility] HHC in the past and has been to [facility] previously. Disposition Plan: Patient to discharge with HHC, family support, and follow-up plans in place. Ml HEMPHILL, RN, CM
--- NOTE | 2020-08-27 12:31 | PCM.PN.HOSP ---
Subjective Subjective: Patient was seen and examined. He is alert oriented x3. Denied any new complaints. Objective Data Objective Data Vital Signs: Vital Signs Temp Pulse Resp BP Pulse Ox 98.2 F 65 18 96/57 L 92 08/27/20 10:05 08/27/20 10:05 08/27/20 10:05 08/27/20 10:07 08/27/20 10:05 Oxygen Delivery Method Room Air Weight: 50.9 kg Body Mass Index (BMI) 17.5 Finger Stick Blood Glucose 122 Intake & Output: Intake and Output for Last 24 Hours 08/25/20 08/26/20 08/27/20 23:59 23:59 23:59 Intake Total 560 / 560 988.33 / 988.33 Output Total 200 / 200 400 / 400 Balance 360 / 360 588.33 / 588.33 Lab / Micro Data Result Diagrams: 08/26/20 11:25 08/27/20 05:48 Labs: Laboratory Results - last 24 hr 08/26/20 08/27/20 08/27/20 11:45 05:48 05:48 PT 14.1 INR 1.2 Sodium 140 Potassium 3.7 Chloride 105 Carbon Dioxide 29.0 Anion Gap 6 BUN 10 Creatinine 1.02 Estim Creat Clear Calc 45.74 Est GFR (MDRD) Af Amer 92 Est GFR (MDRD) Non-Af 76 BUN/Creatinine Ratio 9.8 L Glucose 87 Calcium 8.7 Magnesium 2.2 Micro: Microbiology 08/26/20 11:25 Interface Orders SARS-CoV-2 Antigen (Rapid) - Final Physical Exam Narrative General: Awake, Oriented x3, Cooperative HEENT: Atraumatic, PERRLA, EOMI, Normocephalic, mild tenderness/scalp hematoma. No laceration. Oral: Moist oral mucosa Neck: Supple Lungs: CTA Cardiovascular: Regular rate, Regular Rhythm, Normal S1, Normal S2, systolic ejection murmur over right second ICS Abdomen: Bowel Sounds Present, Soft, Non Tender, Non-Distended : No renal angle tenderness. No suprapubic tenderness. Extremities: No edema, Capillary Refill Less than 3 Seconds Skin: No rashes, No breakdown Musculoskeletal/spine: Moderate muscle atrophy of extremities and loss of subcutaneous fat. No Tenderness to Palpation of Joints or Extremities. Kyphosis present Neurological: Cranial nerves II-XII grossly intact, Deep Tendon Reflexes 2+/4 and Symmetrical, Neuro grossly intact Psych/Mental Status: Amnesia and dementia. Assessment & Plan Assessment/Plan (1) Altered mental status: (2) Fall: QUALIFIERS: Encounter type: initial encounter Qualified Code(s): W19.XXXA - Unspecified fall, initial encounter (3) Failure to thrive in adult: (4) Protein-calorie malnutrition, severe: (5) Debility: PLAN: 1. Altered mental status, unclear etiology. Patient has a history of chronic alcohol use, Wernicke's encephalopathy, with underlying dementia and seizure disorder, appears resolved Patient is A& O x3. Work-up so far is negative. Will continue to monitor PT/OT to evaluate and treat 2. 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 Rest of chronic medical conditions remain stable Visit Charges Inpatient E&M: 26678 Subs Hosp L2
[2020-08-27 13:51] VITALS: BP 107/68; PULSE 74; RESP 17; TEMP 36.8; O2SAT 92
--- NOTE | 2020-08-27 15:00 | CASEMGMT ---
Addendum entered by Ml Perkins 08/27/20 15:16: RAMY CIFUENTES received call back and [facility] is able to accept the patient with planned start of care for Tuesday 08/29. RAMY CIFUENTES updated the patient. Original Note: RAMY CIFUENTES in to discuss HHC at discharge with patient. Patient was provided a list of [facility] providers including quality and resource use data and consistent with the patient?s preferred geographic region, medical needs, and insurance network. The patient?s preferred provider is [facility]. RAMY CIFUENTES sent referral to [facility] and awaiting acceptance.
--- NOTE | 2020-08-27 15:36 | CHAPLAIN ---
Type of Pastoral Visit _x__ Initial Visit ___ Follow-up Visit ___ On-call Visit ___ General Patient Visit ___ Spiritual Assessment ___ Family Conference ___ Bereavement ___ Rapid Response ___ Code Blue ___ Other (describe below) Pastoral Care Referral From _x__ Patient ___ Family ___ Nurse ___ Physician ___ Blast Furnace Checker ___ Clinical Quality Rn ___ Other (describe below) Sacrament/Intervention _x__ Active listening ___ Anointing ___ Pentecostal ___ Bereavement ___ Communion ___ Chinyere exploration ___ ___ Life review ___ Prayer ___ Reconciliation ___ Sacrament of Sick _x__ Supportive presence ___ Wedding ___ Other (describe below) Pastoral Comments patient willing to talk and give some of life review and her perspective but not necessarily anything in depth; pt welcomes casual conversation mostly
[2020-08-27 20:10] VITALS: BP 136/83; PULSE 74; RESP 16; TEMP 37.2; O2SAT 93
[2020-08-28] VITALS (7 sets, daily range): BP systolic 127–147; BP diastolic 66–79; PULSE 57–70; RESP 16–18; TEMP 36.9; O2SAT 89–94
[2020-08-28 07:14] LABS: Absolute Lymphocyte Count 2.45 X10^3/uL (0.83-4.51); Basophil# 0.03 X10^3/uL; Basophil% 0.3 % (0-1); Eosinophil# 0.42 X10^3/uL; Eosinophils% 4.8 % (0-5); Hematocrit 31.7 % (40-54); Hemoglobin 10.3 g/dL (13.0-16.5); Lymphocyte # 2.45 X10^3/ul (0.83-4.51); Mean Corp Hgb Conc 32.5 g/dL (32-36); Mean Corpuscular Hgb 28.9 pg (27.0-32.0); Mean Platelet Vol. 9.4 fl (6.2-12.0); Monocyte# 0.78 X10^3/uL; Monocyte% 8.9 % (0-10); NRBC Flagged by Analyzer 0 % (0-5); Neutrophil # 5.03 X10^3/uL (2.7-7.7); Neutrophil % 57.7 % (47-70); Platelet Count 316 K/mm3 (150-450); RBC Distribution Width CV 15.6 % (11.6-14.6); RBC Distribution Width SD 51.4 fl (35.1-43.9); Red Blood Count 3.56 M/mm3 (4.6-6.2); White Blood Count 8.7 K/mm3 (4.4-11.0)
[2020-08-28 07:40] LABS: AST(SGOT) 6 U/L (15-37); Alanine Aminotransfer ALT/SGPT 10 U/L (16-61); Alkaline Phosphatase 68 U/L (45-117); Anion Gap 6 (5-15); BUN 16 mg/dL (7-18); BUN/Creat Ratio 16.4 RATIO (10-20); Calcium,Total 8.8 mg/dL (8.5-10.1); Chloride 106 mmol/L (98-107); Creatinine, Serum 0.98 mg/dL (0.70-1.30); EST Glomerular Filtration Rate 80 mL/min (>60); Est Glom Filt Rate - Afr Amer 96 mL/min (>60); Estimated Creatinine Clearance 47.61 ml/min; Globulin 2.9 g/dL (2.2-4.2); Glucose 89 mg/dL (74-106); Potassium 3.6 mmol/L (3.5-5.1); Protein, Total 5.9 g/dL (6.4-8.2); Sodium Level 140 mmol/L (136-145)
[2020-08-28] MEDS: Heparin Injection (Vial) 5,000 UNIT/ML VIAL 5000 UNIT SC (08:04)
--- NOTE | 2020-08-28 09:24 | CASEMGMT ---
Addendum entered by Ml Emanuel 08/28/20 10:07: Correction. Pt's CM Jesusita Sterling is through [facility]. Pt does have a CM Lucía Salmeron through [facility]. Original Note: Social Work Note SW reviewed chart. Pt has CM Jesusita Sterling through [facility]. SW placed a call to CM Jesusita Sterling and left message updating her on pt's admission to [facility] and discharge today. Ml Emanuel SALON STYLIST, [employer] SUPERVISOR
--- NOTE | 2020-08-28 09:45 | CASEMGMT ---
RAMY CIFUENTES called and updated [facility] requesting SW be added to services at discharge. Received call back from Nicol at [facility] that they are able to add SW to his services.
--- NOTE | 2020-08-28 10:41 | CASEMGMT ---
Social Work Note APOORVA updated that pt is leaving his stove on at home, some concerns with pt going home alone. SW in to speak with pt. SW introduced self and role at [facility]. Pt is alert and orientated x3. Pt states he has no concerns with going home, states he feels safe at home. Pt states he has neighbors that check in with him. SW asked pt about his sister Nataliia checking in with him. Pt states she sometimes will but hasn't been able to do as much as she has been busy. Pt states Nataliia is not in the best of health either. Pt confirms that his CM is still Jesusita Sterling and still gets Home Delivered Meals. Pt states he doens't like the meals all that well though. Per previous notes, Pt gets 7 meals delivered a week through [facility], [employer] button, 4 hours a week of aide services for personal care through [facility], and a nurse from [facility] that sets up his medications. Pt also confirms that he still has a CM through [facility] named Lucía Salmeron. Pt states that he does need a Dentist to get Dentures. SW informed pt that this worker can call Lucía to ask her to assist in getting pt a Dentist for his Dentures, pt agreeable to this worker calling Lucía. Pt states that Lucía will also assist pt in transportation to appointments if needed. Pt states he doesn't have all that many appointments right now though.Pt states that his neighbor Ashlee will also assist in transportation. Pt states [facility] have [facility] but [facility]'t [facility] to [facility]. SW asked pt about leaving the stove on. Pt confirms that he will sometimes leave the stove on. Pt states he will now double check the stove before leaving. Pt denied any ETOH use, states he does smoke some weed. Pt denied additional needs or concerns at this time. APOORVA placed a call to pt's CM Lucía Salmeron and left message asking to assist pt in getting a dentist and also updated Lucía that pt will be discharged home today. APOORVA placed a call to Narcisa at [facility] and made [facility] report. Ml Emanuel COILER, LEATHER CARVER
--- NOTE | 2020-08-28 10:49 | DS.PCM_ITS ---
Providers Date of Admission: 08/26/20 Primary Care Physician: Dr. Jhonatan Zapien MD Reason For Visit: ALTERED MENTAL STATUS, RECURRENT FALL Diagnosis Discharge Diagnosis (1) Altered mental status: Status: Resolved Code(s): R41.82 - Altered mental status, unspecified (2) Fall: Status: Acute Code(s): W19.XXXA - Unspecified fall, initial encounter Qualifiers: Encounter type: initial encounter Qualified Code(s): W19.XXXA - Unspecified fall, initial encounter (3) Failure to thrive in adult: Status: Chronic Code(s): R62.7 - Adult failure to thrive (4) Protein-calorie malnutrition, severe: Status: Chronic Code(s): E43 - Unspecified severe protein-calorie malnutrition (5) Debility: Status: Acute Code(s): R53.81 - Other malaise Medications at Discharge Home Medications acetaminophen 650 mg PO Q6H PRN PRN tab 06/20/20 albuterol sulfate 2.5 mg INHALATION Q2H PRN PRN vial.neb. 06/20/20 amlodipine 5 mg tablet 5 mg PO DAILY #90 tablet 08/07/20 buspirone 15 mg tablet 15 mg PO BID #180 tab 08/07/20 fluoxetine 20 mg capsule 20 mg PO DAILY #90 cap 08/07/20 lamotrigine 200 mg tablet 200 mg PO BID #180 tablet 08/07/20 omeprazole 40 mg capsule,delayed release 40 mg PO DAILY #90 cap 08/07/20 tamsulosin 0.4 mg capsule 0.4 mg PO DAILY@1830 #180 cap 08/07/20 cholecalciferol (vitamin D3) [Vitamin D3] 5,000 unit PO DAILY 08/28/20 food supplemt, lactose-reduced [Ensure Enlive] 120 ml PO 4X/DAY 30 Days ml 08/28/20 Hospital Course Operations None Procedures None Summary of Care Provided Minutes Spent on Discharge: 45 Hospital Course: 74-year-old male with past medical history of Parkinson's disease, restless leg, anxiety/depression who was brought in with altered mental status. Patient was found urinating in his closet and walking outside in his neighborhood looking confused and disoriented. Patient admitted to having hallucinations. Work-up in the ED including CT of the brain which showed small right frontal scalp hematoma, chest x-ray was unremarkable, cervical spine CT wa s unremarkable. Patient's admitting CBCD and CMP as well as urinalysis was also unremarkable. Patient lives alone. [facility] as [facility] mental status. Patient continued to remain stable. He was maintained on IV fluids. He was seen by PT and OT and found no skilled need for discharge to SNF. Patient insisted on being discharged home. 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 He will be discharged with home health care?PT and OT as well as social work. He would also be followed by APS. Physical Exam Narrative General: Awake, Oriented x3, Cooperative HEENT: Atraumatic, PERRLA, EOMI, Normocephalic, mild tenderness/scalp hematoma. No laceration. Oral: Moist oral mucosa Neck: Supple Lungs: CTA Cardiovascular: Regular rate, Regular Rhythm, Normal S1, Normal S2, systolic ejection murmur over right second ICS Abdomen: Bowel Sounds Present, Soft, Non Tender, Non-Distended : No renal angle tenderness. No suprapubic tenderness. Extremities: No edema, Capillary Refill Less than 3 Seconds Skin: No rashes, No breakdown Musculoskeletal/spine: Moderate muscle atrophy of extremities and loss of subcutaneous fat. No Tenderness to Palpation of Joints or Extremities. Kyphosis present Neurological: Cranial nerves II-XII grossly intact, Deep Tendon Reflexes 2+/4 and Symmetrical, Neuro grossly intact Psych/Mental Status: Amnesia and dementia. ABG / Lab / Microbiology Data Result Diagrams: 08/28/20 06:45 08/28/20 06:45 Laboratory: Laboratory Results - last 24 hr 08/28/20 08/28/20 06:45 06:45 WBC 8.7 RBC 3.56 L Hgb 10.3 L Hct 31.7 L MCV 89.0 MCH 28.9 MCHC 32.5 RDW Std Deviation 51.4 H RDW Coeff of Dariela 15.6 H Plt Count 316 MPV 9.4 Immature Gran % (Auto) 0.300 Neut % (Auto) 57.7 Lymph % (Auto) 28.0 Ida % (Auto) 8.9 Eos % (Auto) 4.8 Baso % (Auto) 0.3 Absolute Neuts (auto) 5.0 Absolute Lymphs (auto) 2.45 Nucleated RBC % 0 Sodium 140 Potassium 3.6 Chloride 106 Carbon Dioxide 28.0 Anion Gap 6 BUN 16 Creatinine 0.98 Estim Creat Clear Calc 47.61 Est GFR (MDRD) Af Amer 96 Est GFR (MDRD) Non-Af 80 BUN/Creatinine Ratio 16.4 Glucose 89 Calcium 8.8 Total Bilirubin 0.50 AST 6 L ALT 10 L Alkaline Phosphatase 68 Total Protein 5.9 L Albumin 3.0 L Globulin 2.9 Albumin/Globulin Ratio 1.0 Microbiology: Microbiology 08/26/20 11:25 Interface Orders SARS-CoV-2 Antigen (Rapid) - Final D/C Instructions Discharge Diet: No restrictions Discharge Activity: Return to Normal Activity Meaningful Use Info Meaningful Use Diagnoses (Choose all that apply): None applicable Discharge Plan Admission Admit Date/Time: 08/26/20 13:42 Primary Reason for Your Visit: Confusion Attending Provider: Serina Slade Primary Care Provider: Jhonatan Zapien Instructions Additional Instructions / Restrictions: Continue to keep yourself hydrated. Follow-up with your primary care doctor within 1 to 2 weeks. Take note of changes to your medications. You will be followed up with home health for physical, occupational therapy as well as social work. Discharge Orders/Prescriptions Prescriptions: New Ensure Enlive 0.08 gram-1.5 kcal/mL Liquid 120 ml PO 4X/DAY 30 Days RF: 0 Continued buspirone 15 mg tablet 15 mg PO BID Qty: 180 RF: 1 amlodipine 5 mg tablet 5 mg PO DAILY Qty: 90 RF: 2 fluoxetine 20 mg capsule 20 mg PO DAILY Qty: 90 RF: 2 lamotrigine 200 mg tablet 200 mg PO BID Qty: 180 RF: 2 omeprazole 40 mg capsule,delayed release(DR/EC) 40 mg PO DAILY Qty: 90 RF: 3 tamsulosin 0.4 mg capsule 0.4 mg PO DAILY@1830 Qty: 180 RF: 2 acetaminophen 325 MG tablet 650 mg PO Q6H PRN PRN (Reason: Pain Score 1-10) RF: 0 Discontinued lisinopril 10 mg tablet 10 mg PO DAILY Qty: 180 RF: 3 trihexyphenidyl 2 MG tablet 2 mg PO BID RF: 0 risperidone 1 mg tablet 1 mg PO QHS RF: 0 No Action albuterol sulfate 2.5 MG/3 ML solution for nebulization 2.5 mg INHALATION Q2H PRN PRN (Reason: Dyspnea, wheezing) RF: 0 cholecalciferol (vitamin D3) [Vitamin D3] 125 mcg (5,000 unit) Tablet 5,000 unit PO DAILY RF: 0 Referrals / Follow Up: Jhonatan Zapien MD [Primary Care Provider] - 09/11/20 1:30 pm Disposition Disposition (needs filled in before D/C Order can be placed): Home Health Service Visit Charges Inpatient E&M: 81129 Disch Hosp
--- NOTE | 2020-08-28 10:57 | PHA.DC.MR ---
Pharmacy Service has performed discharge medication reconciliation for this patient. The patient's discharge medication list was reviewed for discrepancies and discrepancies were resolved. Home Medications acetaminophen 650 mg PO Q6H PRN PRN tab 06/20/20 albuterol sulfate 2.5 mg INHALATION Q2H PRN PRN vial.neb. 06/20/20 amlodipine 5 mg tablet 5 mg PO DAILY #90 tablet 08/07/20 buspirone 15 mg tablet 15 mg PO BID #180 tab 08/07/20 fluoxetine 20 mg capsule 20 mg PO DAILY #90 cap 08/07/20 lamotrigine 200 mg tablet 200 mg PO BID #180 tablet 08/07/20 omeprazole 40 mg capsule,delayed release 40 mg PO DAILY #90 cap 08/07/20 tamsulosin 0.4 mg capsule 0.4 mg PO DAILY@1830 #180 cap 08/07/20 cholecalciferol (vitamin D3) [Vitamin D3] 5,000 unit PO DAILY 08/28/20 food supplemt, lactose-reduced [Ensure Enlive] 120 ml PO 4X/DAY 30 Days ml 08/28/20
[2020-08-28] MEDS: lamoTRIgine 100 MG Tablet 200 MG PO (11:19)
[2020-08-28] MEDS: Psyllium 1 PACKET PO (11:19)
--- NOTE | 2020-08-28 12:19 | CASEMGMT ---
RAMY CIFUENTES received call from Nicol at [facility] and states that they are now not able to accept the patient. RAMY CIFUENTES in to update the patient and review [facility] list with patient. [facility] RAMY CIFUENTES called and left message with [facility] at [facility]. CM will continue to follow this patient and plan for a safe discharge.
--- NOTE | 2020-08-28 13:10 | CASEMGMT ---
Addendum entered by Ml Emanuel 08/28/20 16:17: SHAR was placed on pt's chart. Original Note: Social Work Note APOORVA received message from Grazyna at [facility]. Grazyna states they received call from pt's neighbor with concerns of pt going home today. Grazyna states pt is not safe in the community, not safe to be in the home. Grazyna states pt will not always answer the door for his neighbor. Pt has an alarm system for his medications and when the alarm is going off, pt will throw it across the room. Grazyna states pt will be with it and then will be out of it the next. Grazyna states they had tried to get pt back to [facility] and pt was all agreeable until pt started back in psychosis and pt was not agreeable to going to SNF then. Grazyna states APS has been notified multiple times. Grazyna states they will not going back to seeing pt in the home as they feel pt needs SNF, and to not be in the community. APOORVA informed Grazyna that at this time, pt is alert and orientated x3, able to make own decisions. APOORVA informed Grazyna that this worker can ask pt about going to SNF but if pt refuses, then this worker cannot make pt go to SNF. Grazyna asked that when this SW speaks to pt about SNF, this worker specifically mentions [facility] as pt has been there before and liked it. Grazyna states there was talk of getting pt a guardian but no family wants to do it so the guardianship would have to go through the Courts. APOORVA thanked Grazyna for the information. APOORVA in to speak with pt. APOORVA informed pt that there are reported safety concerns of pt returning home at this time. APOORVA infromed pt that [place] and pt's neighbor Ashlee had both reported concerns of him returning home at this time for safety reasons. Pt states piss on her. Pt states he is safe to return home and will be returning home at discharge. APOORVA asked pt if he would consider going to a SNF, specifically [facility]. Pt adamantly refusing SNF. Pt states he will be returning home at discharge. APOORVA updated physician on above information. Pt to discharge home today. APOORVA in to speak with pt again. APOORVA asked pt if he would sign Release of Information for his CM Lucía Salmeron so this worker can discuss pt's admission to [facility] and to have Lucía follow up with pt when he returns home. Pt signed SHAR for [facility]. SW placed a call to pt's CM Jesusita Sterling and left message requesting an increase in pt's services at home. SW placed a call to pt's CM Lucía Salmeron through [facility] and left message to have her call this worker back regarding pt. APOORVA placed another call to Narcisa at [facility] and provided additional concerns that were listed above. APOORVA placed a call to [facility] and spoke with Marlen and scheduled a Crisis Welfare Check for pt. Pt is scheduled for August 30 at 12:00pm with Yulia from Crisis calling pt on the phone to do a welfare check with pt. Ml Emanuel APPEALS NURSE, LINE SERVICE ATTENDANT
--- NOTE | 2020-08-28 13:30 | CASEMGMT ---
RAMY CIFUENTES recieved call back from Nic requestin referral. RAMY CIFUENTES sent referral to [facility]. Awaiting acceptance
--- NOTE | 2020-08-28 14:26 | CASEMGMT ---
RAMY CIFUENTES received call back from [facility] and they are able to accept the patient. RAMY CIFUENTES updated the patient. Patient had no further questions or concerns at this time.
--- NOTE | 2020-08-28 16:00 | NURSING ---
Called Ashlee De Jesus again, left message to call this nurse.
--- NOTE | 2020-08-28 16:06 | CASEMGMT ---
RAMY CIFUENTES recieved call back from Nic requestin referral. RAMY CIFUENTES sent referral to [facility]. Awaiting acceptance.
--- NOTE | 2020-08-29 09:48 | CASEMGMT ---
Social Work Note APOORVA received call from pt's CM Jesusita Sterling at [facility]. APOORVA informed Jesusita that pt discharged home yesterday. APOORVA faxed discharge paperwork to [facility]. Ml Emanuel LOCOMOTIVE MECHANIC, HAND BUFFING WHEEL FORMER
--- NOTE | 2020-08-29 13:10 | NURSING ---
MINOR DC F/u Call: DC Date: 08/28/20 Discharge Diagnosis (1) Altered mental status: Status: Resolved Code(s): R41.82 - Altered mental status, unspecified (2) Fall: Status: Acute Code(s): W19.XXXA - Unspecified fall, initial encounter Qualifiers: Encounter type: initial encounter Qualified Code(s): W19.XXXA - Unspecified fall, initial encounter (3) Failure to thrive in adult: Status: Chronic Code(s): R62.7 - Adult failure to thrive (4) Protein-calorie malnutrition, severe: Status: Chronic Code(s): E43 - Unspecified severe protein-calorie malnutrition (5) Debility: Status: Acute Code(s): R53.81 - Other malaise DC Disposition: Home with [facility] Lace/Strata: 31/07 Called patient listed number on demographics- answered by friend Ashlee De Jesus whom is listed under contacts. States that she is out and this is her phone, patient does not have a phone. Took this movie writer's number down to have patient return call. MINOR Bowie
== END 2020-08-28 16:23 | disposition home health service (06) | DRG 640 ==
LOC: ED 12:54 → MS3 14:07
PROVIDERS: Admitting Provider Internal Medicine; Emergency Provider Emergency Medicine; PCP Internal Medicine; Visit Provider Internal Medicine
DX: E51.2 Wernicke's encephalopathy (principal); E43 Unspecified severe protein-calorie malnutrition; Z68.1 Body mass index [BMI] 19.9 or less, adult; R62.7 Adult failure to thrive; F03.90 Unspecified dementia, unspecified severity, without behavioral disturbance, psychotic disturbance, mood disturbance, and anxiety; R53.81 Other malaise; F17.200 Nicotine dependence, unspecified, uncomplicated; R29.6 Repeated falls; G40.909 Epilepsy, unspecified, not intractable, without status epilepticus; Z72.89 Other problems related to lifestyle; S00.03XA Contusion of scalp, initial encounter; J44.9 Chronic obstructive pulmonary disease, unspecified; M19.90 Unspecified osteoarthritis, unspecified site; I10 Essential (primary) hypertension; F41.9 Anxiety disorder, unspecified; F32.9 Major depressive disorder, single episode, unspecified; Z66 Do not resuscitate; Z79.51 Long term (current) use of inhaled steroids; Z79.899 Other long term (current) drug therapy; W18.30XA Fall on same level, unspecified, initial encounter; Y93.89 Activity, other specified; Y92.009 Unspecified place in unspecified non-institutional (private) residence as the place of occurrence of the external cause; Y99.8 Other external cause status
CPT/HCPCS: 36415; 70450; 71045; 72125; 80048; 80053; 80307; 81001; 82077; 82140; 83605; 83735; 84484; 85025; 85610; 87426; 92526; 92610; 93005; 97162; 97166; 99251; 99285; J7120; A4216; G0463

== ENCOUNTER → 2020-09-11 14:20 | Outpatient (CLI) | payer MEDICARE, MEDICAID, SELFPAY ==
[2020-09-11 13:51] VITALS: BMI 18.1
[2020-09-11 16:54] LABS: ALB/GLOB Ratio 1.1 RATIO (0.9-2.4); AST(SGOT) 12 U/L (15-37); Alanine Aminotransfer ALT/SGPT 15 U/L (16-61); Albumin, Serum 4.3 g/dL (3.2-5.0); Alkaline Phosphatase 86 U/L (45-117); Anion Gap 5 (5-15); BUN 13 mg/dL (7-18); Calcium,Total 9.2 mg/dL (8.5-10.1); Chloride 106 mmol/L (98-107); Creatinine, Serum 1.18 mg/dL (0.70-1.30); EST Glomerular Filtration Rate 64 mL/min (>60); Est Glom Filt Rate - Afr Amer 77 mL/min (>60); Globulin 3.8 g/dL (2.2-4.2); Glucose 91 mg/dL (74-106); Potassium 4.1 mmol/L (3.5-5.1); Protein, Total 8.1 g/dL (6.4-8.2); Sodium Level 137 mmol/L (136-145)
== END ==
PROVIDERS: PCP Internal Medicine; Referring Provider Nurse Practitioner Family; Visit Provider Nurse Practitioner Family
DX: R41.82 Altered mental status, unspecified (principal)
CPT/HCPCS: 36415; 80053; 82542

== ENCOUNTER 2020-09-15 11:18 | Emergency (ER) | payer MEDICARE, MEDICAID, SELFPAY ==
[2020-09-11 13:51] VITALS: BMI 18.1
[2020-09-15 11:20] VITALS: BP 159/104; PULSE 77; RESP 18; TEMP 36.8; O2SAT 95; BMI 18.2
--- NOTE | 2020-09-15 11:54 | EX.ED.DYSGE1 ---
HPI History of Present Illness Chief Complaint: Depression Informant: patient Narrative Narrative: Patient presents on a Thursday saying he is depressed and feeling anxious. He said that there is nothing new going on here he has had these symptoms for years, he states he sees a psychiatrist with these medications and he states that he thinks he needs something else for his depression because the fluoxetine/buspirone must not be working. He states he has chronic insomnia and has been having more trouble sleeping lately and staying asleep, he did not sleep well last night or the night before. Also trouble eating and having weight loss as a result, he attributes this to his depression. He states he is not suicidal, he would make too many people upset if he did that. He was just looking for help with medications, he denies wanting to talk to a counselor or anything, he has not talked to a psychiatrist this week. [facility] Medical History Anemia Anxiety Change in mental status Depression GERD (gastroesophageal reflux disease) History of alcohol abuse History of fracture of clavicle History of kidney stones Hypertension IBS (irritable bowel syndrome) Vitamin D deficiency Home Medications amlodipine 5 mg tablet 5 mg PO DAILY #90 tablet 08/07/20 [Rx Last Taken Unknown] buspirone 15 mg tablet 15 mg PO BID #180 tab 08/07/20 [Rx Last Taken Unknown] fluoxetine 20 mg capsule 20 mg PO DAILY #90 cap 08/07/20 [Rx Last Taken Unknown] lamotrigine 200 mg tablet 200 mg PO BID #180 tablet 08/07/20 [Rx Last Taken Unknown] omeprazole 40 mg capsule,delayed release 40 mg PO DAILY #90 cap 08/07/20 [Rx Last Taken Unknown] tamsulosin 0.4 mg capsule 0.4 mg PO DAILY@1830 #180 cap 08/07/20 [Rx Last Taken Unknown] cholecalciferol (vitamin D3) 125 mcg (5,000 unit) capsule 125 mcg PO DAILY 09/11/20 [History Last Taken Unknown] Allergy/AdvReac Type Severity Reaction Status Date / Time bupropion HCl Allergy SHAKING Verified 09/15/20 11:23 [From Wellbutrin] quetiapine fumarate Allergy Unknown Verified 09/15/20 11:23 [From Seroquel] trazodone AdvReac SHAKING Verified 09/15/20 11:23 Family History Other Anemia Anxiety Breast cancer Cancer Depression Hypertension Osteoporosis Surgical History History of hip surgery History of intestinal surgery History of tonsillectomy Social History Smoking Status: Current every day smoker tobacco type: cigarettes Tobacco: How many years used: 50 alcohol intake: former year quit: 2019 substance use type: marijuana what type of physical activity do you participate in: none ROS ROS ED Constitutional Constitutional ED: Denies chills or fever(s) Eyes Eyes: Denies change in vision or diplopia ENT ENT ED: Denies rhinorrhea or sore throat Cardiovascular Cardiovascular: Denies chest pain or palpitations Respiratory/Chest Respiratory/Chest: Denies cough or dyspnea Gastrointestinal Gastrointestinal: Denies abdominal pain, diarrhea, nausea or vomiting Genitourinary Genitourinary ED: Denies dysuria or hematuria Musculoskeletal Musculoskeletal: Denies back pain or neck pain Integumentary Denies abscess or rash Neurologic Neurologic: Denies headache(s), paresthesias or weakness Psychiatric Psychiatric: Reports as per HPI, anxiety and depression; Denies suicidal thoughts EXAM Physical Exam Const Vital Signs: 09/15/20 11:20 09/15/20 12:06 Temperature 98.3 F Temperature Source Oral Pulse Rate 77 69 Respiratory Rate 18 17 Blood Pressure 159/104 H 160/90 H Blood Pressure Mean 122 Pulse Ox 95 95 Oxygen Delivery Method Room Air Positive well nourished and well developed General Appearance ED: well developed and NAD HEENT Reports moist mucous membranes normocephalic and atraumatic Eyes PERRL and EOMs intact bilaterally Neck full ROM and supple Resp normal respiratory effort and clear to auscultation bilaterally Cardio regular rate, regular rhythm and no murmurs GI non-tender and non-distended Auscultation: normoactive bowel sounds Palpation: soft Back/Spine no CVA tenderness General Back: other FROM Extremity normal to inspection General Extremety ED: Negative for edema, pulses abnormal or tenderness General Extremity: Negative for edema or pulses abnormal Neuro oriented x3, CN's II-XII intact bilaterally and no sensory deficits noted Sensorium / Orientation: awake and alert Motor Exam: strength 5/5 throughout Psych mental status grossly normal, thought process normal, cooperative, activity/motor behavior normal, denies hallucinations, denies homicidal ideation and denies suicidal ideation Attention / Concentration: attention grossly intact Memory / Cognition: memory grossly intact Insight: insight good Judgement: judgement good Skin no rashes or lesions noted and no wounds MDM MDM MDM Narrative Medical decision making narrative: He has a declared reaction to trazodone, so I gave him a dose of Vistaril here and a prescription for Ambien after we discussed giving him something now for some anxiety, and a prescription for something to try to help him sleep, discussing with his psychiatrist after the weekend for an appointment. He said that seems reasonable, he contracts verbally for safety, and is comfortable with that overall plan. Discharge Plan Triage Chief Complaint: Depression ED Provider: Kolton Hall Dx/Rx/DC Orders Clinical Impression: Depression, Anxiety, Insomnia Instructions: ED Depression, ED Insomnia Prescriptions: No Action buspirone 15 mg tablet 15 mg PO BID Qty: 180 RF: 1 amlodipine 5 mg tablet 5 mg PO DAILY Qty: 90 RF: 2 fluoxetine 20 mg capsule 20 mg PO DAILY Qty: 90 RF: 2 lamotrigine 200 mg tablet 200 mg PO BID Qty: 180 RF: 2 omeprazole 40 mg capsule,delayed release(DR/EC) 40 mg PO DAILY Qty: 90 RF: 3 tamsulosin 0.4 mg capsule 0.4 mg PO DAILY@1830 Qty: 180 RF: 2 cholecalciferol (vitamin D3) 125 mcg (5,000 unit) capsule 125 mcg PO DAILY RF: 0 Primary Care Provider: Jhonatan Zapien Referrals: Jhonatan Zapien MD [Primary Care Provider] - (And/or your psychiatrist next week) Disposition Disposition: Home, self care
[2020-09-15 12:06] VITALS: BP 160/90; PULSE 69; RESP 17; O2SAT 95
[2020-09-15] MEDS: hydrOXYzine PAM 25 MG Capsule 50 MG PO (12:14)
== END 2020-09-15 12:15 | disposition home or self-care (01) ==
LOC: ED 11:58
PROVIDERS: Emergency Provider Emergency Medicine; PCP Internal Medicine
DX: F32.9 Major depressive disorder, single episode, unspecified (principal); F41.9 Anxiety disorder, unspecified; G47.00 Insomnia, unspecified; K21.9 Gastro-esophageal reflux disease without esophagitis; I10 Essential (primary) hypertension; F17.210 Nicotine dependence, cigarettes, uncomplicated; Z79.899 Other long term (current) drug therapy
CPT/HCPCS: 99284

== ENCOUNTER → 2020-11-06 14:35 | Outpatient (CLI) | payer MEDICARE, MEDICAID, SELFPAY ==
[2020-11-06 13:59] VITALS: BMI 18.2
[2020-11-06 16:30] LABS: Absolute Neutrophil Count 3.6 X10^3/uL (2.0-7.7); Basophil# 0.07 X10^3/uL; Basophil% 0.8 % (0-1); Eosinophil# 0.59 X10^3/uL; Eosinophils% 7.1 % (0-5); Hematocrit 38.4 % (40-54); Hemoglobin 12.2 g/dL (13.0-16.5); Lymphocyte % 38.7 % (19-41); Mean Corp Hgb Conc 31.8 g/dL (32-36); Mean Corpuscular Hgb 27.5 pg (27.0-32.0); Mean Corpuscular Volume 86.5 fL (80-94); Monocyte# 0.85 X10^3/uL; Monocyte% 10.3 % (0-10); NRBC Flagged by Analyzer 0 % (0-5); Neutrophil # 3.55 X10^3/uL (2.7-7.7); Platelet Count 358 K/mm3 (150-450); RBC Distribution Width CV 15.8 % (11.6-14.6); RBC Distribution Width SD 49.5 fl (35.1-43.9); Red Blood Count 4.44 M/mm3 (4.6-6.2); White Blood Count 8.3 K/mm3 (4.4-11.0)
[2020-11-06 16:41] LABS: Anion Gap 6 (5-15); BUN 8 mg/dL (7-18); BUN/Creat Ratio 7.5 RATIO (10-20); Calcium,Total 8.9 mg/dL (8.5-10.1); Chloride 103 mmol/L (98-107); Creatinine, Serum 1.06 mg/dL (0.70-1.30); EST Glomerular Filtration Rate 72 mL/min (>60); Est Glom Filt Rate - Afr Amer 88 mL/min (>60); Glucose 81 mg/dL (74-106); Potassium 4.1 mmol/L (3.5-5.1); Sodium Level 139 mmol/L (136-145)
== END ==
PROVIDERS: PCP Internal Medicine; Referring Provider Internal Medicine; Visit Provider Internal Medicine
DX: E51.2 Wernicke's encephalopathy (principal); M81.0 Age-related osteoporosis without current pathological fracture; I10 Essential (primary) hypertension
CPT/HCPCS: 36415; 80048; 85025

== ENCOUNTER → 2021-02-07 10:00 | Outpatient (CLI) | payer MEDICARE, MEDICAID, SELFPAY ==
[2020-11-15 16:17] VITALS: BMI 18.2
--- NOTE | 2021-02-07 11:19 | TELEMED_ITS ---
[facility] has confirmed receipt of a request for visit. This document confirms receipt of the order initiating the consult. To find the results of the consultation, please view the patient's reports for the scanned Telemed Consult.
== END ==
PROVIDERS: PCP Internal Medicine; Referring Provider Psychiatry & Neurology Neurology; Visit Provider Psychiatry & Neurology Neurology
DX: G40.409 Other generalized epilepsy and epileptic syndromes, not intractable, without status epilepticus (principal)
CPT/HCPCS: 95819

== ENCOUNTER 2021-05-14 15:02 | Outpatient (CLI) | payer MEDICARE, MEDICAID, SELFPAY ==
[2021-05-14 16:58] LABS: Anion Gap 7 (5-15); BUN 6 mg/dL (7-18); BUN/Creat Ratio 5.2 RATIO (10-20); Calcium,Total 8.2 mg/dL (8.5-10.1); Chloride 106 mmol/L (98-107); Creatinine, Serum 1.15 mg/dL (0.70-1.30); EST Glomerular Filtration Rate 66 mL/min (>60); Est Glom Filt Rate - Afr Amer 80 mL/min (>60); Glucose 90 mg/dL (74-106); Potassium 3.4 mmol/L (3.5-5.1); Sodium Level 139 mmol/L (136-145)
== END 2021-05-14 23:59 | disposition short-term general hospital (02) ==
LOC: BIMLAB 15:03
PROVIDERS: PCP Internal Medicine; Visit Provider Nurse Practitioner Family
DX: I10 Essential (primary) hypertension (principal)
CPT/HCPCS: 36415; 80048

== ENCOUNTER 2021-08-02 09:28 | Outpatient (CLI) | payer MEDICARE, MEDICAID, SELFPAY ==
[2021-08-02 10:34] LABS: Vitamin B12 255 pg/mL (211-911)
[2021-08-02 10:51] LABS: AST(SGOT) 15 U/L (15-37); Alanine Aminotransfer ALT/SGPT 18 U/L (16-61); Alkaline Phosphatase 65 U/L (45-117); Bilirubin, Direct 0.15 mg/dL (0.00-0.30); Globulin 3.5 g/dL (2.2-4.2); Protein, Total 7.5 g/dL (6.4-8.2)
[2021-08-14 10:41] LABS: Lamotrigine (Lamictal) Level 6.5 ug/mL (2.0-20.0)
== END 2021-08-02 23:59 | disposition home or self-care (01) ==
LOC: MTLAB 09:29
PROVIDERS: PCP Internal Medicine; Referring Provider Psychiatry & Neurology Neurology; Visit Provider Psychiatry & Neurology Neurology
DX: G40.909 Epilepsy, unspecified, not intractable, without status epilepticus (principal); F10.27 Alcohol dependence with alcohol-induced persisting dementia; E87.6 Hypokalemia
CPT/HCPCS: 36415; 80076; 82140; 82542; 82607; 82746; 84132; 84425

== ENCOUNTER → 2021-12-03 | Outpatient (CLI) | payer MEDICARE, MEDICAID, SELFPAY ==
[2021-12-03 16:59] LABS: Absolute Lymphocyte Count 3.07 X10^3/uL (0.83-4.51); Absolute Neutrophil Count 4.9 X10^3/uL (2.0-7.7); Basophil# 0.09 X10^3/uL; Basophil% 0.9 % (0-1); Eosinophil# 0.53 X10^3/uL; Eosinophils% 5.5 % (0-5); Hemoglobin 13.3 g/dL (13.0-16.5); Lymphocyte # 3.07 X10^3/ul (0.83-4.51); Lymphocyte % 31.9 % (19-41); Mean Corp Hgb Conc 31.7 g/dL (32-36); Mean Corpuscular Hgb 28.1 pg (27.0-32.0); Mean Corpuscular Volume 88.8 fL (80-94); Mean Platelet Vol. 8.7 fl (6.2-12.0); Monocyte# 1.04 X10^3/uL; Monocyte% 10.8 % (0-10); NRBC Flagged by Analyzer 0 % (0-5); Neutrophil # 4.86 X10^3/uL (2.7-7.7); Neutrophil % 50.5 % (47-70); Platelet Count 432 K/mm3 (150-450); RBC Distribution Width SD 49.5 fl (35.1-43.9); Red Blood Count 4.73 M/mm3 (4.6-6.2); White Blood Count 9.6 K/mm3 (4.4-11.0)
[2021-12-03 17:23] LABS: AST(SGOT) 8 U/L (15-37); Alanine Aminotransfer ALT/SGPT 14 U/L (16-61); Albumin, Serum 3.8 g/dL (3.2-5.0); Alkaline Phosphatase 71 U/L (45-117); Anion Gap 4 (5-15); BUN 12 mg/dL (7-18); BUN/Creat Ratio 8.1 RATIO (10-20); Calcium,Total 9.3 mg/dL (8.5-10.1); Chloride 108 mmol/L (98-107); Cholesterol 254 mg/dL (200); Creatinine, Serum 1.49 mg/dL (0.70-1.30); EST Glomerular Filtration Rate 49 mL/min (>60); Est Glom Filt Rate - Afr Amer 59 mL/min (>60); Globulin 3.8 g/dL (2.2-4.2); Glucose 89 mg/dL (74-106); High Density Lipoprotein 59 mg/dL; PSA,Total - Annual Screen 0.96 ng/mL (0.00-4.00); Protein, Total 7.6 g/dL (6.4-8.2); Sodium Level 139 mmol/L (136-145); Thyroid Stim Hormone (TSH) 3.94 uIU/mL (0.358-3.74); Triglycerides 90 mg/dL; Very Low Density Lipoprotein 18 mg/dL (5-40)
== END | disposition home or self-care (01) ==
LOC: BIMLAB 15:42
PROVIDERS: PCP Internal Medicine; Referring Provider Nurse Practitioner Family; Visit Provider Nurse Practitioner Family
DX: I10 Essential (primary) hypertension (principal); F10.10 Alcohol abuse, uncomplicated; M81.0 Age-related osteoporosis without current pathological fracture; N40.0 Benign prostatic hyperplasia without lower urinary tract symptoms; Z12.5 Encounter for screening for malignant neoplasm of prostate
CPT/HCPCS: 36415; 80053; 80061; 84153; 84443; 85025; G0103

== ENCOUNTER → 2021-12-19 | Outpatient (CLI) | payer MEDICARE, MEDICAID, SELFPAY ==
[2021-12-19 15:15] LABS: Anion Gap 4 (5-15); BUN 13 mg/dL (7-18); BUN/Creat Ratio 9.8 RATIO (10-20); Calcium,Total 9.5 mg/dL (8.5-10.1); Chloride 109 mmol/L (98-107); Creatinine, Serum 1.33 mg/dL (0.70-1.30); EST Glomerular Filtration Rate 56 mL/min (>60); Est Glom Filt Rate - Afr Amer 67 mL/min (>60); Glucose 102 mg/dL (74-106); Potassium 5.2 mmol/L (3.5-5.1); Sodium Level 141 mmol/L (136-145)
== END | disposition home or self-care (01) ==
LOC: BIMLAB 13:49
PROVIDERS: PCP Internal Medicine; Referring Provider Nurse Practitioner Family; Visit Provider Nurse Practitioner Family
DX: I10 Essential (primary) hypertension (principal)
CPT/HCPCS: 36415; 80048

== ENCOUNTER 2022-01-23 10:42 | Emergency (ER) | payer OTHER, SELFPAY ==
[2022-01-23 10:47] VITALS: BP 135/83; PULSE 92; RESP 17; TEMP 36.8; O2SAT 97; BMI 19.7
[2022-01-23 11:23] LABS: Absolute Lymphocyte Count 1.56 X10^3/uL (0.83-4.51); Absolute Neutrophil Count 8.9 X10^3/uL (2.0-7.7); Basophil# 0.04 X10^3/uL; Basophil% 0.3 % (0-1); Eosinophil# 0.09 X10^3/uL; Eosinophils% 0.8 % (0-5); Hematocrit 38.5 % (40-54); Lymphocyte # 1.56 X10^3/ul (0.83-4.51); Lymphocyte % 13.4 % (19-41); Mean Corp Hgb Conc 33.8 g/dL (32-36); Mean Corpuscular Hgb 28.8 pg (27.0-32.0); Mean Corpuscular Volume 85.4 fL (80-94); Mean Platelet Vol. 9.3 fl (6.2-12.0); Monocyte# 1.08 X10^3/uL; Monocyte% 9.2 % (0-10); NRBC Flagged by Analyzer 0 % (0-5); Neutrophil # 8.88 X10^3/uL (2.7-7.7); Platelet Count 419 K/mm3 (150-450); RBC Distribution Width CV 15.3 % (11.6-14.6); RBC Distribution Width SD 47.1 fl (35.1-43.9); Red Blood Count 4.51 M/mm3 (4.6-6.2); White Blood Count 11.7 K/mm3 (4.4-11.0)
[2022-01-23 11:38] LABS: Anion Gap 17 (5-15); BUN 20 mg/dL (7-18); Calcium,Total 8.8 mg/dL (8.5-10.1); Chloride 97 mmol/L (98-107); Creatinine, Serum 1.43 mg/dL (0.70-1.30); EST Glomerular Filtration Rate 51 mL/min (>60); Est Glom Filt Rate - Afr Amer 62 mL/min (>60); Glucose 95 mg/dL (74-106); Potassium 2.7 mmol/L (3.5-5.1); Sodium Level 138 mmol/L (136-145)
--- NOTE | 2022-01-23 11:51 | EDS_ITS ---
HPI HPI - GI History of Present Illness Chief Complaint: Constipation Narrative Narrative: 76-year-old male presenting with abdominal pain and constipation. He states he has not been able to go to the bathroom for 3 days. He states he has chronic hemorrhoids because of this. He states he was urged to come to the emergency room by a friend who is a nurse. He also states he has a history of bowel obstruction. He states he mostly eats junk food. He has not tried to change his diet because of his constipation. He is not eating a high high-fiber food. He is not having nausea or vomiting. Denies black or bloody stools. He is not had a fever. He states he is also generally weak and has trouble getting around for the last 3 days. He does however state that he does not want to stay in the hospital or go to a residential. He has not any falls. He states he does not follow-up with his primary care physician like he should. He states he just does not want to. [facility] Medical History Anemia Anxiety Cerumen impaction Change in mental status Depression Flu vaccine need GERD (gastroesophageal reflux disease) History of alcohol abuse History of fracture of clavicle History of kidney stones Hypertension IBS (irritable bowel syndrome) Nausea vomiting and diarrhea Vitamin D deficiency Home Medications fluoxetine 20 mg capsule 20 mg PO DAILY DEPRESSION #90 caps 08/07/20 [Rx Last Taken Unknown] cholecalciferol (vitamin D3) 125 mcg (5,000 unit) capsule 125 mcg PO DAILY 09/11/20 [History Last Taken Unknown] lisinopril 10 mg tablet 10 mg PO DAILY HTN #90 tabs 04/30/21 [Rx Last Taken Unknown] lamotrigine 150 mg tablet 150 mg PO BID #60 tabs 07/15/21 [Rx Last Taken Unknown] ondansetron HCl 4 mg tablet 4 mg PO TID PRN nausea and vomiting #90 tabs 07/15/21 [Rx Last Taken Unknown] omeprazole 40 mg capsule,delayed release 40 mg PO DAILY GERD #90 caps 07/19/21 [Rx Last Taken Unknown] tamsulosin 0.4 mg capsule 0.4 mg PO DAILY@1830 prostate #180 caps 08/16/21 [Rx Last Taken Unknown] amlodipine 5 mg tablet 5 mg PO DAILY BP #90 tabs 08/16/22 [Rx Last Taken Unk nown] memantine 10 mg tablet 10 mg PO BID #60 tabs 01/13/22 [Rx Last Taken Unknown] polyethylene glycol 3350 17 gram/dose oral powder (Miralax) 17 g PO DAILY PRN constipation #119 grams 01/23/22 [Rx Last Taken Unknown] potassium chloride 20 mEq tablet,extended release 40 meq PO DAILY 2 days #4 tabs 01/23/22 [Rx Last Taken Unknown] Allergy/AdvReac Type Severity Reaction Status Date / Time bupropion HCl Allergy SHAKING Verified 01/23/22 10:43 [From Wellbutrin] quetiapine fumarate Allergy Unknown Verified 01/23/22 10:43 [From Seroquel] trazodone AdvReac SHAKING Verified 01/23/22 10:43 Family History Other Anemia Anxiety Breast cancer Cancer Depression Hypertension Osteoporosis Surgical History History of hip surgery History of intestinal surgery History of tonsillectomy Social History Smoking Status: Former smoker Tobacco: How many years used: 50 alcohol intake: former year quit: 2019 substance use type: marijuana what type of physical activity do you participate in: none ROS ROS ED ROS Narrative Generalized weakness Constitutional Constitutional ED: Denies chills or fever(s) ENT ENT ED: Denies rhinorrhea or sore throat Cardiovascular Cardiovascular: Denies chest pain or palpitations Respiratory/Chest Respiratory/Chest: Denies cough or dyspnea Gastrointestinal Gastrointestinal: Reports abdominal pain and constipation; Denies nausea or vomiting Genitourinary Genitourinary ED: Denies dysuria or hematuria Musculoskeletal Musculoskeletal: Denies arthralgias Integumentary Denies abscess Neurologic Neurologic: Denies headache(s) or paresthesias Endocrine Endocrinology: Denies polydipsia or polyphagia EXAM Physical Exam Const Vital Signs: 01/23/22 10:47 01/23/22 12:42 01/23/22 13:44 Temperature 98.2 F Temperature Source Oral Pulse Rate 92 78 84 Respiratory Rate 17 16 20 H Blood Pressure 135/83 H 167/78 H 149/102 H Blood Pressure Mean 100 107 117 Pulse Ox 97 96 92 Oxygen Delivery Method Room Air Room Air Room Air Positive well nourished and unkempt General Appearance ED: unkempt; Negative for pallor HEENT Reports dry mucous membranes normocephalic and atraumatic Mouth ED: Yes dry mucous membranes Mouth: dry mucous membranes Eyes PERRL and EOMs intact bilaterally Resp normal respiratory effort Auscultation: Negative for rales, rhonchi or wheezes Cardio regular rate and regular rhythm GI GI Narrative: Mild generalized tenderness. Abdomen not rigid. No masses. Palpation: Negative for guarding or rigid Back/Spine no CVA tenderness Extremity full ROM Neuro CN's II-XII intact bilaterally and moves all extremities Sensorium / Orientation: alert Motor Exam: general weakness Psych mental status grossly normal Appearance: unkempt Skin General Skin Exam: Negative for jaundice or pallor MDM MDM MDM Narrative Medical decision making narrative: Patient seen and evaluated for abdominal pain. He does relate that he has been constipated for 3 days and says that he has a history of bowel obstruction. I obtained blood work and his CBC shows a leukocytosis of 11.7. Hemoglobin normal at 13. Platelets 419. Creatinine is near baseline at 1.43 and he was given a l iter of IV fluids. Potassium was 2.7. This will be repleted. CT of the abdomen pelvis shows a large amount of fecal material to the rectum. There is no sign of obstruction. Chest x-ray my interpretation does not show any acute cardiopulmonary process and radiologist agree. Patient was given 40 mill equivalents of p.o. potassium after his CAT scan was done. He was given IV fluids today as well. He will be given a prescription for MiraLAX to take at home. He is instructed to eat high-fiber foods at home and stop eating junk food. He will be given 2 days of potassium to take. He is to follow-up with his primary care physician and return precautions were discussed. Impression: 1. Abdominal pain 2. Constipation 3. Hypokalemia Lab Data Attestation: I reviewed the patient's lab results. Labs: Laboratory Results - last 24 hr 01/23/22 01/23/22 11:08 11:08 WBC 11.7 H RBC 4.51 L Hgb 13.0 Hct 38.5 L MCV 85.4 MCH 28.8 MCHC 33.8 RDW Std Deviation 47.1 H RDW Coeff of Dariela 15.3 H Plt Count 419 MPV 9.3 Immature Gran % (Auto) 0.300 Neut % (Auto) 76.0 H Lymph % (Auto) 13.4 L [place] % (Auto) 9.2 Eos % (Auto) 0.8 Baso % (Auto) 0.3 Absolute Neuts (auto) 8.9 H Absolute Lymphs (auto) 1.56 Nucleated RBC % 0 Sodium 138 Potassium 2.7 L* Chloride 97 L Carbon Dioxide 24.0 Anion Gap 17 H BUN 20 H Creatinine 1.43 H Estim Creat Clear Calc 34.50 Est GFR (MDRD) Af Amer 62 Est GFR (MDRD) Non-Af 51 L BUN/Creatinine Ratio 14.0 Glucose 95 Calcium 8.8 Radiography Diagnostic Testing: Clinical Impression(s) from Imaging Studies Abdomen/Pelvis CT 01/23/22 12:10 IMPRESSION: Large amount of fecal material is seen in the rectum. Surgical anastomotic clips are seen in the distal small bowel. Stable bilateral renal cysts. Stable 5 mm calyceal stone in the lower pole of the left kidney. Mildly distended gallbladder. Electronically Signed: Tigre Borden MD at 12:32 EDT , Chest X-Ray 01/23/22 12:10 IMPRESSION: Stable increased interstitial markings with areas of confluence in the lower lobes suggestive of a scarring. Electronically Signed: Tigre Borden MD at 12:23 EDT , Discharge Plan Triage Chief Complaint: Constipation ED Provider: Martinez Fairbanks Dx/Rx/DC Orders Instructions: ED Constipation (Adult), ED Hypokalemia, ED Potassium-Rich Foods, ED Weakness (Uncertain Cause) Prescriptions: New polyethylene glycol 3350 [Miralax] 17 gram/dose powder 17 g PO DAILY PRN (Reason: constipation) Qty: 119 0RF potassium chloride 20 mEq tablet extended release 40 meq PO DAILY 2 Days Qty: 4 0RF No Action fluoxetine 20 mg capsule 20 mg PO DAILY Qty: 90 2RF cholecalciferol (vitamin D3) 125 mcg (5,000 unit) capsule 125 mcg PO DAILY lamotrigine 150 mg tablet 150 mg PO BID Qty: 60 5RF ondansetron HCl 4 mg tablet 4 mg PO TID PRN (Reason: nausea and vomiting) Qty: 90 5RF lisinopril 10 mg tablet 10 mg PO DAILY Qty: 90 3RF amlodipine 5 mg tablet 5 mg PO DAILY Qty: 90 3RF omeprazole 40 mg capsule,delayed release(DR/EC) 40 mg PO DAILY Qty: 90 3RF tamsulosin 0.4 mg capsule 0.4 mg PO DAILY@1830 Qty: 180 3RF memantine 10 mg tablet 10 mg PO BID Qty: 60 0RF Primary Care Provider: Jhonatan Zapien Referrals: Jhonatan Zapien MD [Primary Care Provider] - Disposition Disposition: Home, Self Care
--- NOTE | 2022-01-23 12:10 | CT_ITS ---
STUDY: CT ABDOMEN AND PELVIS WITH CONTRAST REASON FOR EXAM: Male, 76 years old. 3 day history of constipation and weakness. Abdominal pain. RADIATION DOSAGE (If Supplied By Facility): CTDIvol = ( 8.69 ) mGy, DLP = ( 351.18 ) mGycm TECHNIQUE: Transaxial images were obtained from the dome of the diaphragm to the symphysis pubis without oral contrast. IV 100mL Isovue-300 was administered. Sagittal and coronal images were reconstructed. Individualized dose optimization techniques were used for this CT. COMPARISON: Comparison is made with prior examination 02/12/2017. FINDINGS: Mild residual increased linear markings at the lung bases suggestive of scarring. Coronary artery calcification. Normal liver. The gallbladder is distended. Normal spleen. Normal pancreas. Normal bilateral adrenal glands. There is a 2.1 cm cyst in the upper medial portion of the right kidney. There is also evidence of a 1 cm cortical cyst in the upper lateral aspect of the upper pole of the right kidney. There is a 1.5 m cyst in the peripheral lateral aspect of the left kidney. This was demonstrated to be a hyperdense cyst on prior study. Stable 5 mm nonobstructive calculus in the lower pole of the left kidney. There is a small hiatal hernia. Once again, surgical anastomotic clips are seen in the distal small bowel as it enters the cecum. A large amount of fecal material is seen in the rectum. This is suggestive of a fecaloma. There is non-visualization of the appendix. There is diffuse atherosclerotic calcification of the abdominal aorta, without a demonstrated aneurysm. Normal inferior vena cava. Normal retroperitoneum. The urinary bladder is distended. There are prostatic calcifications. Normal abdominal wall. There are diffuse degenerative changes of the visualized lumbar spine. Stable compression fractures of the L1, L2 and L4 lumbar vertebrae. CT/Abdomen/Pelvis W IV Cont ONLY IMPRESSION: Large amount of fecal material is seen in the rectum. Surgical anastomotic clips are seen in the distal small bowel. Stable bilateral renal cysts. Stable 5 mm calyceal stone in the lower pole of the left kidney. Mildly distended gallbladder. Electronically Signed: Tigre Borden MD at 12:32 EDT ,
--- NOTE | 2022-01-23 12:10 | RAD_ITS ---
STUDY: X-RAY CHEST REASON FOR EXAM: Male, 76 years old. Cough TECHNIQUE: Single AP portable view of the chest. COMPARISON: Comparison is made with prior examination 08/26/2020. FINDINGS: Is evidence of prior ORIF of the left clavicle with the pin and screw and plate fixation device. This is unchanged. Stable increased interstitial markings at the lung bases with areas of confluence suggestive of bibasilar scarring. There is no demonstrated pleural abnormality. There is mild cardiac enlargement. Normal mediastinum and gisselle. Normal visualized pulmonary arteries. There is atherosclerotic calcification of the aortic arch with tortuosity. Normal visualized thoracic spine. Normal visualized ribs, clavicles, and shoulders. There is no demonstrated abnormality of the visualized soft tissue structures of the upper abdomen. RAD/Chest 1 View (Portable) IMPRESSION: Stable increased interstitial markings with areas of confluence in the lower lobes suggestive of a scarring. Electronically Signed: Tigre Borden MD at 12:23 EDT ,
[2022-01-23] MEDS: 0.9% Normal Saline 1,000 ML 999 ML IV (12:23)
[2022-01-23] MEDS: Morphine 4 MG/ML Syringe IV (12:23)
[2022-01-23 12:42] VITALS: BP 167/78; PULSE 78; RESP 16; O2SAT 96
[2022-01-23] MEDS: Potassium Chloride Oral Tablet 20 MEQ 40 MEQ PO (13:42)
[2022-01-23 13:44] VITALS: BP 149/102; PULSE 84; RESP 20; O2SAT 92
== END 2022-01-23 14:44 | disposition home or self-care (01) ==
PROVIDERS: Emergency Provider Student in an Organized Health Care Education/Training Program; PCP Internal Medicine; Visit Provider Student in an Organized Health Care Education/Training Program
DX: K59.00 Constipation, unspecified (principal); E87.6 Hypokalemia; Z87.891 Personal history of nicotine dependence; I10 Essential (primary) hypertension; R10.9 Unspecified abdominal pain; K64.9 Unspecified hemorrhoids; Z79.899 Other long term (current) drug therapy
CPT/HCPCS: 71045; 74177; 80048; 85025; 87811; 96361; 96374; 99285; J7030; Q9967; A4216

== ENCOUNTER 2022-01-28 16:13 | Inpatient (IN) | payer OTHER, SELFPAY ==
[2022-01-28] VITALS (9 sets, daily range): BP systolic 122–143; BP diastolic 74–92; PULSE 70–132; RESP 16–72; TEMP 36.8–37.2; O2SAT 88–98; BMI 18.6; BMI 18.0
--- NOTE | 2022-01-28 16:29 | EKG12_ITS ---
Test Reason : FALL Blood Pressure : / mmHG Vent. Rate : 080 BPM Atrial Rate : 080 BPM P-R Int : 186 ms QRS Dur : 080 ms QT Int : 386 ms P-R-T Axes : -16 -32 040 degrees QTc Int : 445 ms Normal sinus rhythm Left axis deviation Septal infarct , age undetermined Inferior infarct , age undetermined, cannot be excluded Abnormal ECG Confirmed by DIPAK SPRINGER, JENNIFER ([id number]), web content editor ANNAMARIE CORTEZ ([id number]) on 01/30/2022 1:00:05 PM Referred By: Confirmed By:JENNIFER QUESADA MD
--- NOTE | 2022-01-28 16:30 | EX.ED.DYSGE1 ---
HPI History of Present Illness Chief Complaint: Fall Detail of Chief Complaint: Frequent falls, not eating or able to care for himself Informant: patient, EMS and other (Neighbor) Onset/Context/Timing Onset: Days Context: - (Uncertain) Timing: Intermittent Quality: Patient states he is weak and falls Location: Home Current Severity: Not applicable Maximum Severity: Standing up Worsened by: Uncertain Relieved by: Unknown Associated Symptoms Associated Symptoms: None Narrative Narrative: Patient is a 76-year-old male who was seen on January 23 for constipation. Review of prior records indicate he has a history of dementia associated with alcoholism, benign prostatic hyper aplasia, osteoporosis, dizziness, GERD, depression, hypertension, COPD, Warnicke's encephalopathy. Patient states he is falling a lot. He lives alone. He has not had anything to eat or drink in days. He has not showered in days. He is not on anticoagulant. He responds a little to almost every question asked. When asked to answer yes or no he was not able. Prior similar symptoms: No Recent Illness/Hospitalization: Yes [facility] Medical History Anemia Anxiety Cerumen impaction Change in mental status Depression Flu vaccine need GERD (gastroesophageal reflux disease) History of alcohol abuse History of fracture of clavicle History of kidney stones Hypertension IBS (irritable bowel syndrome) Nausea vomiting and diarrhea Vitamin D deficiency Home Medications fluoxetine 20 mg capsule 20 mg PO DAILY DEPRESSION #90 caps 08/07/20 [Rx Last Taken Unknown] cholecalciferol (vitamin D3) 125 mcg (5,000 unit) capsule 125 mcg PO DAILY 09/11/20 [History Last Taken Unknown] lisinopril 10 mg tablet 10 mg PO DAILY HTN #90 tabs 04/30/21 [Rx Last Taken Unknown] lamotrigine 150 mg tablet 150 mg PO BID #60 tabs 07/15/21 [Rx Last Taken Unknown] ondansetron HCl 4 mg tablet 4 mg PO TID PRN nausea and vomiting #90 tabs 07/15/21 [Rx Last Taken Unknown] omeprazole 40 mg capsule,delayed release 40 mg PO DAILY GERD #90 caps 07/19/21 [Rx Last Taken Unknown] tamsulosin 0.4 mg capsule 0.4 mg PO DAILY@1830 prostate #180 caps 08/16/21 [Rx Last Taken Unknown] amlodipine 5 mg tablet 5 mg PO DAILY BP #90 tabs 12/03/21 [Rx Last Taken Unknown] memantine 10 mg tablet 10 mg PO BID #60 tabs 01/13/22 [Rx Last Taken Unknown] polyethylene glycol 3350 17 gram/dose oral powder (Miralax) 17 g PO DAILY PRN constipation #119 grams 01/23/22 [Rx Last Taken Unknown] potassium chloride 20 mEq tablet,extended release 40 meq PO DAILY 2 days #4 tabs 01/23/22 [Rx Last Taken Unknown] Allergy/AdvReac Type Severity Reaction Status Date / Time bupropion HCl Allergy SHAKING Verified 01/28/22 16:25 [From Wellbutrin] quetiapine fumarate Allergy Unknown Verified 01/28/22 16:25 [From Seroquel] trazodone AdvReac SHAKING Verified 01/28/22 16:25 Family History Other Anemia Anxiety Breast cancer Cancer Depression Hypertension Osteoporosis Surgical History History of hip surgery History of intestinal surgery History of tonsillectomy Social History (Updated 01/28/22 @ 16:[address] Roberto Negro MD) household members: none Smoking Status: Former smoker Tobacco: How many years used: 50 alcohol intake: former year quit: 2019 substance use type: marijuana what type of physical activity do you participate in: none ROS ROS ED Constitutional Constitutional ED: Denies chills, fever(s) or subjective Eyes Eyes: Denies blurry vision or change in vision ENT ENT ED: Denies ear pain, rhinorrhea or sore throat Cardiovascular Cardiovascular: Denies chest pain or palpitations Respiratory/Chest Respiratory/Chest: Denies cough, dyspnea or dyspnea on exertion Gastrointestinal Gastrointestinal: Denies abdominal pain, diarrhea, melena, nausea or vomiting Musculoskeletal Musculoskeletal: Denies arthralgias, back pain, myalgias or neck pain Integumentary Reports other Details: Numerous bruises noted. Neurologic Neurologic: Reports weakness; Denies headache(s) or paresthesias Psychiatric Psychiatric: Denies anxiety or depression Endocrine Endocrinology: Denies polydipsia, polyphagia or polyuria Hematologic/Lymphatic Hematologic/Lymphatic: Reports anemia and easy bruising; Denies easy bleeding Allergic/Immunologic Allergic/Immunologic ED: Denies mouth swelling, tongue swelling or urticaria EXAM Physical Exam Const Vital Signs: 01/28/22 16:19 01/28/22 16:45 01/28/22 16:50 Temperature 99.0 F Temperature Source Temporal Pulse Rate 84 Respiratory Rate 20 H Respiratory Effort Normal Non-Labored Respiratory Pattern Normal Blood Pressure 122/86 H Blood Pressure Mean 98 Pulse Ox 91 88 Oxygen Delivery Method Room Air Room Air Oxygen Flow Rate (L/min) 01/28/22 16:53 Temperature Temperature Source Pulse Rate Respiratory Rate 94 H Respiratory Effort Respiratory Pattern Blood Pressure Blood Pressure Mean Pulse Ox Oxygen Delivery Method Nasal Cannula Oxygen Flow Rate (L/min) 3 Positive well developed, cachectic and unkempt; Negative for well nourished or obese General Appearance ED: unkempt, well developed, cachectic and NAD; Negative for cyanotic, diaphoretic or pallor Nutritional Appearance: cachectic; Negative for obese HEENT Reports dry mucous membranes HEENT Narrative: Head is atraumatic normocephalic. There is temporal wasting. Ears normal. Nares patent. Dry mucosa. Uvula midline. No deviation tongue with protrusion. Difficult to understand patient because his tongue is dry and sticks. Patient states it sticks to the roof of his mouth. Mouth ED: Yes dry mucous membranes Mouth: dry mucous membranes Eyes PERRL and EOMs intact bilaterally General Eye ED: Negative for pale conjunctiva or scleral icterus Neck no lymphadenopathy, supple and no JVD Neck Narrative: There is no JVD. Trachea is midline. Chest Wall inspection of chest normal and palpation of chest normal Resp normal respiratory effort and clear to auscultation bilaterally Cardio regular rate, regular rhythm, S1 normal heart sound, S2 normal heart sound and no murmurs GI normal to inspection, nondistended, normoactive bowel sounds, non-tender and non-distended; Negative for hepatosplenomegaly Back/Spine no CVA tenderness General Back: Negative for CVA tenderness Cervical Spine: Negative for cervical spine tenderness Thoracic Spine / Upper Back: Negative for thoracic spinal tenderness Neuro oriented x3, CN's II-XII intact bilaterally and no sensory deficits noted Sensorium / Orientation: alert Psych Psych Narrative: Patient is pleasantly confused. Appearance: unkempt Skin No no wounds and No skin turgor normal General Skin Exam: Negative for jaundice or pallor MDM MDM MDM Narrative Medical decision making narrative: Clinically patient is dehydrated. Patient has altered mental status which may be due to his dementia or alcoholism. Doubt Warnicke's encephalopathy. Since he does have history of alcoholism and Warnicke's encephalopathy will treat with IV thiamine. Will obtain blood work to assess renal function, electrolytes. Case management was consulted because patient is unable to care for himself. Lab Data Attestation: I reviewed the patient's lab results. Lab results narrative: White count is elevated at 13.1. Basic metabolic panel is unremarkable. Chloride is slightly elevated 110. Glucose is 129. Creatinine is upper end of normal at 1.24 with a GFR of 60. Urine has positive nitrites ketones leukoesterase with 5-10 WBCs and 1+ bacteria. This is not a contaminated specimen. Urine culture was sent. Patient was treated with Rocephin. Labs: Laboratory Results - last 24 hr 01/28/22 01/28/22 01/28/22 16:00 16:00 17:29 WBC 13.1 H RBC 4.88 Hgb 13.9 Hct 42.8 MCV 87.7 MCH 28.5 MCHC 32.5 RDW Std Deviation 51.1 H RDW Coeff of Dariela 15.9 H Plt Count 360 MPV 9.5 Immature Gran % (Auto) 0.500 Neut % (Auto) 79.3 H Lymph % (Auto) 12.7 L [place] % (Auto) 6.0 Eos % (Auto) 1.2 Baso % (Auto) 0.3 Absolute Neuts (auto) 10.4 H Absolute Lymphs (auto) 1.67 Nucleated RBC % 0 Sodium 144 Potassium 3.6 Chloride 110 H Carbon Dioxide 30.0 Anion Gap 4 L BUN 15 Creatinine 1.24 Estim Creat Clear Calc 37.56 Est GFR (MDRD) Af Amer 73 Est GFR (MDRD) Non-Af 60 BUN/Creatinine Ratio 12.1 Glucose 129 H Calcium 9.3 Urine Color Yellow Urine Clarity Clear Urine pH 6.5 Ur Specific [place] 1.015 Urine Protein 30 H Urine Glucose (UA) Normal Urine Ketones 5 H Urine Occult Blood 10 H Urine Nitrite Positive H Urine Bilirubin 1 H Urine Urobilinogen 1 H Ur Leukocyte Esterase 100 H Urine RBC 0-5 SEEN Urine WBC 5-10 SEEN Ur Squamous Epith Cells 0-5 SEEN Urine Bacteria 1+ Urine Mucus 0 SEEN Discharge Plan Triage Chief Complaint: Fall ED Provider: Roberto Negro Dx/Rx/DC Orders Clinical Impression: Complicated urinary tract infection, Adult failure to thrive, Dehydration, Frequent falls, Multiple bruises, History of dementia, Alcoholism Prescriptions: No Action fluoxetine 20 mg capsule 20 mg PO DAILY Qty: 90 2RF cholecalciferol (vitamin D3) 125 mcg (5,000 unit) capsule 125 mcg PO DAILY lamotrigine 150 mg tablet 150 mg PO BID Qty: 60 5RF ondansetron HCl 4 mg tablet 4 mg PO TID PRN (Reason: nausea and vomiting) Qty: 90 5RF lisinopril 10 mg tablet 10 mg PO DAILY Qty: 90 3RF amlodipine 5 mg tablet 5 mg PO DAILY Qty: 90 3RF polyethylene glycol 3350 [Miralax] 17 gram/dose powder 17 g PO DAILY PRN (Reason: constipation) Qty: 119 0RF potassium chloride 20 mEq tablet extended release 40 meq PO DAILY 2 Days Qty: 4 0RF omeprazole 40 mg capsule,delayed release(DR/EC) 40 mg PO DAILY Qty: 90 3RF tamsulosin 0.4 mg capsule 0.4 mg PO DAILY@1830 Qty: 180 3RF memantine 10 mg tablet 10 mg PO BID Qty: 60 0RF Primary Care Provider: Jhonatan Zapien Referrals: Jhonatan Zapien MD [Primary Care Provider] - Disposition Disposition: [facility]
[2022-01-28 16:43] LABS: Absolute Lymphocyte Count 1.67 X10^3/uL (0.83-4.51); Absolute Neutrophil Count 10.4 X10^3/uL (2.0-7.7); Basophil# 0.04 X10^3/uL; Basophil% 0.3 % (0-1); Eosinophil# 0.16 X10^3/uL; Eosinophils% 1.2 % (0-5); Hematocrit 42.8 % (40-54); Hemoglobin 13.9 g/dL (13.0-16.5); Lymphocyte # 1.67 X10^3/ul (0.83-4.51); Lymphocyte % 12.7 % (19-41); Mean Corp Hgb Conc 32.5 g/dL (32-36); Mean Corpuscular Hgb 28.5 pg (27.0-32.0); Mean Corpuscular Volume 87.7 fL (80-94); Mean Platelet Vol. 9.5 fl (6.2-12.0); Monocyte# 0.79 X10^3/uL; NRBC Flagged by Analyzer 0 % (0-5); Neutrophil # 10.39 X10^3/uL (2.7-7.7); Neutrophil % 79.3 % (47-70); Platelet Count 360 K/mm3 (150-450); RBC Distribution Width CV 15.9 % (11.6-14.6); RBC Distribution Width SD 51.1 fl (35.1-43.9); Red Blood Count 4.88 M/mm3 (4.6-6.2); White Blood Count 13.1 K/mm3 (4.4-11.0)
[2022-01-28] MEDS: 0.9% Normal Saline 1,000 ML 1000 ML IV (16:48)
[2022-01-28 16:55] LABS: Anion Gap 4 (5-15); BUN 15 mg/dL (7-18); BUN/Creat Ratio 12.1 RATIO (10-20); Calcium,Total 9.3 mg/dL (8.5-10.1); Chloride 110 mmol/L (98-107); Creatinine, Serum 1.24 mg/dL (0.70-1.30); EST Glomerular Filtration Rate 60 mL/min (>60); Est Glom Filt Rate - Afr Amer 73 mL/min (>60); Estimated Creatinine Clearance 37.56 ml/min; Glucose 129 mg/dL (74-106); Potassium 3.6 mmol/L (3.5-5.1); Sodium Level 144 mmol/L (136-145)
[2022-01-28 17:42] LABS: Mucous, Urine 0 SEEN /hpf (<or=2+)
[2022-01-28 17:46] LABS: Color, Urine Yellow (Yellow); Glucose, Dipstick Normal (Normal); Ketone-Dipstick 5 mg/dl (Negative); Leukocyte Esterase-Dipstick 100 /ul (Negative); Nitrite-Dipstick Positive (Negative); Occult Blood-Urine 10 /ul (Negative); Protein-Dipstick 30 mg/dl (Negative); Specific Gravity, Urine 1.015 (1.002-1.030); Urine Clarity Clear (Clear); Urine Urobilinogen 1 mg/dl (Normal); Urine pH 6.5 (5.0 - 8.0)
[2022-01-28 17:49] LABS: Urine Bilirubin Dipstick 1 mg/dL (Negative)
[2022-01-28 17:53] LABS: Bacteria 1+ /hpf (None Seen); Red Blood Cells-Urine 0-5 SEEN /hpf (0-5); Squamous Epithelial Cells - UA 0-5 SEEN /hpf (0-5); White Blood Cells 5-10 SEEN /hpf (0-5)
[2022-01-28] MEDS: Ceftriaxone 1 GM/50 ML BAG IV (18:49)
--- NOTE | 2022-01-28 19:04 | CM.ED ---
SW received call from Luc[facility], [facility] ed case manager. She said that patient felt week today and lethargic and said that he felt he needed a SNF. Lucía said that she feels patient needs a SNF for rehab. Her contact number is [phone]. MD Negro said that patient will be admitted. Plan: SN[facility]
--- NOTE | 2022-01-28 19:28 | HP.PCM.HOS_ITS ---
[facility] - General General Date of Service: 01/28/22 Chief Complaint: Falls HPI Narrative ANA RIVERA, is a 76 M who presents with falls from home. Patient was just recently here for constipation. Still has not had a bowel movement since that time. States that he has been drinking water and coffee but not eating much, stating he just has no appetite. States that he feels dizzy when he stands up. Presents to the emergency room and was felt to have a urinary tract infection and received ceftriaxone as well as thiamine. Patient was having a difficult time speaking with the emergency room and there was concerned about that Warnicke's encephalopathy so patient did receive 100 mg of thiamine. Patient is alert and oriented x3 my evaluation. Patient also did receive IV fluids. [facility] Medical History (Updated 01/28/22 @ 19:[address] Mario Gill, ) Anemia Anxiety Cerumen impaction Change in mental status Depression Flu vaccine need GERD (gastroesophageal reflux disease) History of alcohol abuse History of fracture of clavicle History of kidney stones Hypertension IBS (irritable bowel syndrome) Nausea vomiting and diarrhea Severe protein-calorie malnutrition Vitamin D deficiency Home Medications fluoxetine 20 mg capsule 20 mg PO DAILY DEPRESSION #90 caps 08/07/20 [Rx Last Taken Unknown] cholecalciferol (vitamin D3) 125 mcg (5,000 unit) capsule 125 mcg PO DAILY 09/11/20 [History Last Taken Unknown] lisinopril 10 mg tablet 10 mg PO DAILY HTN #90 tabs 04/30/21 [Rx Last Taken Unknown] lamotrigine 150 mg tablet 150 mg PO BID #60 tabs 07/15/21 [Rx Last Taken Unknown] ondansetron HCl 4 mg tablet 4 mg PO TID PRN nausea and vomiting #90 tabs 07/15/21 [Rx Last Taken Unknown] omeprazole 40 mg capsule,delayed release 40 mg PO DAILY GERD #90 caps 07/19/21 [Rx Last Taken Unknown] tamsulosin 0.4 mg capsule 0.4 mg PO DAILY@1830 prostate #180 caps 08/16/21 [Rx Last Taken Unknown] amlodipine 5 mg tablet 5 mg PO DAILY BP #90 tabs 12/03/21 [Rx Last Taken Unknown] memantine 10 mg tablet 10 mg PO BID #60 tabs 01/13/22 [Rx Last Taken Unknown] polyethylene glycol 3350 17 gram/dose oral powder (Miralax) 17 g PO DAILY PRN constipation #119 grams 01/23/22 [Rx Last Taken Unknown] potassium chloride 20 mEq tablet,extended release 40 meq PO DAILY 2 days #4 tabs 01/23/22 [Rx Last Taken Unknown] Allergy/AdvReac Type Severity Reaction Status Date / Time bupropion HCl Allergy SHAKING Verified 01/28/22 16:25 [From Wellbutrin] quetiapine fumarate Allergy Unknown Verified 01/28/22 16:25 [From Seroquel] trazodone AdvReac SHAKING Verified 01/28/22 16:25 Family History Other Anemia Anxiety Breast cancer Cancer Depression Hypertension Osteoporosis Surgical History History of hip surgery History of intestinal surgery History of tonsillectomy Social History household members: none Smoking Status: Former smoker Tobacco: How many years used: 50 alcohol intake: former year quit: 2019 substance use type: marijuana what type of physical activity do you participate in: none ROS ROS Narrative All review of systems were negative except as mentioned above in the history of present illness and the other review of systems. Vital Signs Vital Signs Vital Signs: 01/28/22 16:19 01/28/22 16:45 01/28/22 16:50 Temperature 37.2 C Temperature Source Temporal Pulse Rate 84 Respiratory Rate 20 H Respiratory Effort Normal Non-Labored Respiratory Pattern Normal Blood Pressure 122/86 H Blood Pressure Mean 98 Pulse Ox 91 88 Oxygen Delivery Method Room Air Room Air Oxygen Flow Rate (L/min) 01/28/22 16:53 01/28/22 17:30 01/28/22 18:30 Temperature Temperature Source Pulse Rate 79 132 H Respiratory Rate 18 72 H Respiratory Effort Respiratory Pattern Blood Pressure Blood Pressure Mean Pulse Ox 94 97 96 Oxygen Delivery Method Nasal Cannula Nasal Cannula Nasal Cannula Oxygen Flow Rate (L/min) 3 3 3 Weight Weight: 52.4 kg Body Mass Index (BMI) 18.6 Physical Exam Const alert, oriented x3 and no apparent distress Constitutional Narrative: Cachectic. General Appearance: cooperative HEENT normocephalic HEENT Narrative: Temporal wasting Resp normal respiratory effort, no retractions, no use of accessory muscles and clear to auscultation bilaterally Cardio regular rate, regular rhythm, S1 normal heart sound and S2 normal heart sound GI normal to inspection, nondistended, normoactive bowel sounds, soft to palpation, non-tender and non-distended Extremity normal to inspection Neuro oriented x3, moves all extremities and no focal motor deficits Psych affect normal Results Lab / Micro Data Result Diagrams: 01/28/22 16:00 01/28/22 16:00 Labs: Laboratory Results - last 24 hr 01/28/22 16:00: WBC 13.1 H, RBC 4.88, Hgb 13.9, Hct 42.8, MCV 87.7, MCH 28.5, MCHC 32.5, RDW Std Deviation 51.1 H, RDW Coeff of Dariela 15.9 H, Plt Count 360, MPV 9.5, Immature Gran % (Auto) 0.500, Neut % (Auto) 79.3 H, Lymph % (Auto) 12.7 L, [place] % (Auto) 6.0, Eos % (Auto) 1.2, Baso % (Auto) 0.3, Absolute Neuts (auto) 10.4 H, Absolute Lymphs (auto) 1.67, Nucleated RBC % 0 01/28/22 16:00: Sodium 144, Potassium 3.6, Chloride 110 H, Carbon Dioxide 30.0, Anion Gap 4 L, BUN 15, Creatinine 1.24, Estim Creat Clear Calc 37.56, Est GFR (MDRD) Af Amer 73, Est GFR (MDRD) Non-Af 60, BUN/Creatinine Ratio 12.1, Glucose 129 H, Calcium 9.3 01/28/22 17:29: Urine Color Yellow, Urine Clarity Clear, Urine pH 6.5, Ur Specific [place] 1.015, Urine Protein 30 H, Urine Glucose (UA) Normal, Urine Ketones 5 H, Urine Occult Blood 10 H, Urine Nitrite Positive H, Urine Bilirubin 1 H, Urine Urobilinogen 1 H, Ur Leukocyte Esterase 100 H, Urine RBC 0-5 SEEN, Urine WBC 5-10 SEEN, Ur Squamous Epith Cells 0-5 SEEN, Urine Bacteria 1+, Urine Mucus 0 SEEN Assessment & Plan Assessment/Plan (1) Adult failure to thrive: PLAN: Patient does have an abnormal urinalysis but not definitive for urinary tract infection. This may be just more progressive given his multiple medical complexities. PT OT evaluate and treat Patient may require custodial facility upon discharge. IV fluids as patient clinically appears dehydrated (2) UTI (urinary tract infection): QUALIFIERS: Urinary tract infection type: acute cystitis Hematuria presence: without hematuria Qualified Code(s): N30.00 - Acute cy stitis without hematuria PLAN: Suspected Urinalysis is slightly abnormal Received ceftriaxone in the emergency room and will continue on the floor Follow-up urine culture and adjust antibiotics accordingly (3) Severe protein-calorie malnutrition: PLAN: Patient is very cachectic in appearance Will add Ensure Enlive Consult nutrition (4) Constipation: PLAN: Continue with MiraLAX Add senna Consider magnesium citrate if continues to be refractory PLAN: Plan Chronic conditions * History of alcoholism. Patient states that he has been sober for some time * History of dementia: Unclear type. Patient is alert and oriented at at this time. Continue with Namenda * History of epilepsy: Continue with telemetry again * History of hypokalemia: Continue with potassium replacement. * Hypertension: Continue lisinopril * Depression: Continue with fluoxetine * Anemia * GERD: Continue with omeprazole * Irritable bowel syndrome * BPH: Continue with tamsulosin VTE prophylaxis: Moderate risk. Low medical weight heparin CODE STATUS: Addressed with the patient. Patient wishes to be DNR Comfort Care arrest. He is okay with short-term intubation. Charges/Coding Visit Charges Inpatient E&M: 46146 Init Hosp L3
[2022-01-28] MEDS: lamoTRIgine 150 MG Tablet PO (21:29)
[2022-01-28] MEDS: 0.9% Normal Saline 1,000 ML 150 ML IV (21:36)
[2022-01-28] MEDS: 0.9% Saline Lock 10 ML Syringe IV (21:38)
[2022-01-28] MEDS: Ensure Clear 120 ML Liquid PO (21:39)
[2022-01-29] VITALS (7 sets, daily range): BP systolic 125–144; BP diastolic 79–96; PULSE 58–78; RESP 16–18; TEMP 36.3–36.8; O2SAT 92–95
[2022-01-29 04:37] LABS: Absolute Lymphocyte Count 1.72 X10^3/uL (0.83-4.51); Absolute Neutrophil Count 6.8 X10^3/uL (2.0-7.7); Basophil# 0.05 X10^3/uL; Basophil% 0.5 % (0-1); Eosinophil# 0.33 X10^3/uL; Eosinophils% 3.4 % (0-5); Hematocrit 36.2 % (40-54); Hemoglobin 11.7 g/dL (13.0-16.5); Lymphocyte # 1.72 X10^3/ul (0.83-4.51); Mean Corp Hgb Conc 32.3 g/dL (32-36); Mean Corpuscular Hgb 28.4 pg (27.0-32.0); Mean Corpuscular Volume 87.9 fL (80-94); Mean Platelet Vol. 9.3 fl (6.2-12.0); Monocyte# 0.66 X10^3/uL; Monocyte% 6.9 % (0-10); NRBC Flagged by Analyzer 0 % (0-5); Neutrophil # 6.77 X10^3/uL (2.7-7.7); Neutrophil % 70.8 % (47-70); Platelet Count 307 K/mm3 (150-450); RBC Distribution Width CV 16.1 % (11.6-14.6); RBC Distribution Width SD 52.5 fl (35.1-43.9); Red Blood Count 4.12 M/mm3 (4.6-6.2); White Blood Count 9.6 K/mm3 (4.4-11.0)
[2022-01-29 06:17] LABS: BUN 12 mg/dL (7-18); BUN/Creat Ratio 12.2 RATIO (10-20); Creatinine, Serum 0.99 mg/dL (0.70-1.30); EST Glomerular Filtration Rate 78 mL/min (>60); Est Glom Filt Rate - Afr Amer 95 mL/min (>60); Estimated Creatinine Clearance 45.43 ml/min; Glucose 104 mg/dL (74-106); Protein, Total 5.9 g/dL (6.4-8.2)
[2022-01-29 06:18] LABS: ALB/GLOB Ratio 0.9 RATIO (0.9-2.4); AST(SGOT) 17 U/L (15-37); Alanine Aminotransfer ALT/SGPT 54 U/L (16-61); Albumin, Serum 2.8 g/dL (3.2-5.0); Alkaline Phosphatase 57 U/L (45-117); Anion Gap 6 (5-15); Chloride 115 mmol/L (98-107); Globulin 3.1 g/dL (2.2-4.2); Potassium 2.9 mmol/L (3.5-5.1); Sodium Level 149 mmol/L (136-145); Thyroid Stim Hormone (TSH) 1.72 uIU/mL (0.358-3.74)
--- NOTE | 2022-01-29 08:20 | PN.HOSP_ITS ---
Subjective Subjective DOS 01/29/22 CC Vomiting Mr. Casillas is a 76y/o male who presents s/p fall. Recently here for constipation. He reports he had problems with nausea and vomiting last night and into today. Typically has poor PO intake and reports low appetite. Denies CP, does have some SOB which he feels is better. Does have weak cough with possible sputum production. Reports he feels weak today. Objective Data Objective Data Vital Signs: Vital Signs Temp Pulse Resp BP Pulse Ox O2 Del Method O2 Flow Rate 97.4 F L 58 L 16 139/84 H 94 Nasal Cannula 2 01/29/22 05:12 01/29/22 05:12 01/29/22 05:12 01/29/22 05:12 01/29/22 07:45 01/29/22 07:45 01/29/22 07:45 Oxygen Flow Rate (L/min) 2 Oxygen Delivery Method Nasal Cannula Weight: 50.6 kg Body Mass Index (BMI) 18.0 Intake & Output: Intake and Output for Last 24 Hours 01/27/22 01/28/22 01/29/22 23:59 23:59 23:59 Intake Total 1101 / 1101 1000 / 1000 Balance 1101 / 1101 1000 / 1000 Lab / Micro Data Result Diagrams: 01/29/22 04:16 01/29/22 04:16 Labs: Laboratory Results - last 24 hr 01/28/22 16:00: WBC 13.1 H, RBC 4.88, Hgb 13.9, Hct 42.8, MCV 87.7, MCH 28.5, MCHC 32.5, RDW Std Deviation 51.1 H, RDW Coeff of Dariela 15.9 H, Plt Count 360, MPV 9.5, Immature Gran % (Auto) 0.500, Neut % (Auto) 79.3 H, Lymph % (Auto) 12.7 L, Ritchie % (Auto) 6.0, Eos % (Auto) 1.2, Baso % (Auto) 0.3, Absolute Neuts (auto) 10.4 H, Absolute Lymphs (auto) 1.67, Nucleated RBC % 0 01/28/22 16:00: Sodium 144, Potassium 3.6, Chloride 110 H, Carbon Dioxide 30.0, Anion Gap 4 L, BUN 15, Creatinine 1.24, Estim Creat Clear Calc 37.56, Est GFR (MDRD) Af Amer 73, Est GFR (MDRD) Non-Af 60, BUN/Creatinine Ratio 12.1, Glucose 129 H, Calcium 9.3 01/28/22 17:29: Urine Color Yellow, Urine Clarity Clear, Urine pH 6.5, Ur Specific [place] 1.015, Urine Protein 30 H, Urine Glucose (UA) Normal, Urine Ketones 5 H, Urine Occult Blood 10 H, Urine Nitrite Positive H, Urine Bilirubin 1 H, Urine Urobilinogen 1 H, Ur Leukocyte Esterase 100 H, Urine RBC 0-5 SEEN, Urine WBC 5-10 SEEN, Ur Squamous Epith Cells 0-5 SEEN, Urine Bacteria 1+, Urine Mucus 0 SEEN 01/29/22 04:16: WBC 9.6, RBC 4.12 L, Hgb 11.7 L, Hct 36.2 L, MCV 87.9, MCH 28.4, MCHC 32.3, RDW Std Deviation 52.5 H, RDW Coeff of Dariela 16.1 H, Plt Count 307, MPV 9.3, Immature Gran % (Auto) 0.400, Neut % (Auto) 70.8 H, Lymph % (Auto) 18.0 L, [place]itchie % (Auto) 6.9, Eos % (Auto) 3.4, Baso % (Auto) 0.5, Absolute Neuts (auto) 6.8, Absolute Lymphs (auto) 1.72, Nucleated RBC % 0 01/29/22 04:16: Sodium 149 H, Potassium 2.9 L, Chloride 115 H, Carbon Dioxide 28.0, Anion Gap 6, BUN 12, Creatinine 0.99, Estim Creat Clear Calc 45.43, Est GFR (MDRD) Af Amer 95, Est GFR (MDRD) Non-Af 78, BUN/Creatinine Ratio 12.2, Glucose 104, Calcium 8.0 L, Total Bilirubin 0.50, AST 17, ALT 54, Alkaline Phosphatase 57, Total Protein 5.9 L, Albumin 2.8 L, Globulin 3.1, Albumin/Globulin Ratio 0.9, TSH 1.72 Physical Exam Const alert and oriented x3 HEENT Head and Scalp: normocephalic Eyes Eyes Narrative: Difficulty following finger, no overt nystagmus appreciated Neck supple Resp normal respiratory effort Resp Narrative: On O2, Somewhat diminished at bases Cardio regular rate and regular rhythm GI soft to palpation, non-tender and non-distended Extremity Extremity Narrative: No edema appreciated Neuro Neuro Narrative: Finger to nose test suboptimal and took considerable effort and time while still missing nose slightly, difficulty with tracking finger, is alert and oriented Psych Psych Narrative: Reports feeling down sometimes, affect normal at time of exam Assessment & Plan Assessment/Plan (1) Constipation: (2) Adult failure to thrive: (3) Frequent falls: PLAN: Plan 1. Adult failure to thrive: Poor appetite with frequent falls and poor social support PT OT evaluate and treat Patient will likely require senior living facility upon discharge. IV fluids as patient clinically appears dehydrated TSH 1.72 UTI- acute cystitis without hematuria UA with +leuk esterase and nitrites On rocephin, growing staph with sensitivities pending Follow-up urine culture and adjust antibiotics accordingly ANASTACIO: Resolved with fluids, likely 2/2 dehydration Severe protein-calorie malnutrition: Patient is very cachectic in appearance Ensure Enlive Consult nutrition Constipation: Schedule miralax Senna prn Consider magnesium citrate if continues to be refractory History of alcoholism: Pt reports being sober for 4 months Alcohol level not drawn this admission but past two levels have been negative Will start on thiamine and folic acid Hypokalemia: Will replace History of dementia: Unclear type.? Patient is alert and oriented at at this time.? Continue with Namenda History of epilepsy: Per previous notes last seizure between 2009 and 2011 and had followed with neurology Continue lamictal Depression: Continue with fluoxetine Anemia, normocytic, chronic: appears chronic, normal value on admit likely 2/2 dehydration and hemoconcentration GERD: Continue with omeprazole BPH: Continue with tamsulosin VTE prophylaxis: Moderate risk.? Low medical weight heparin Charges/Coding Visit Charges Inpatient E&M: 93008 Subs Hosp L2
[2022-01-29] MEDS: Lisinopril 10 MG Tablet PO (08:36)
[2022-01-29] MEDS: amLODIPine 5 MG Tablet PO (08:36)
[2022-01-29] MEDS: Pantoprazole Sodium 40 MG Tablet PO (08:36)
[2022-01-29] MEDS: FLUoxetine 20 MG Capsule PO (08:36)
[2022-01-29] MEDS: lamoTRIgine 150 MG Tablet PO ×2 (08:37→21:48)
[2022-01-29] MEDS: Potassium Chloride Oral Tablet 20 MEQ 40 MEQ PO (08:37)
[2022-01-29] MEDS: Cholecalciferol (Vit D3) 125 MCG CAPSULE (5,000 UNITS) PO (08:37)
[2022-01-29] MEDS: Potassium Chloride Oral Tablet 20 MEQ PO (08:37)
[2022-01-29] MEDS: Ensure Clear 120 ML Liquid PO (08:40)
--- NOTE | 2022-01-29 11:00 | CASEMGMT ---
Per ED SW report patient is interested in placement in a prison facility. SW reviewed PT/OT and prison facility is being recommended. SW notified DC Glass Mechanic of plan and to please follow up for patient choice and start the referral process. Plan: SNF pending patient's choices, acceptance, and insurance approval. Krissy Schroeder CYLINDER PRESS OPERATOR HELPER SCOTTIE
--- NOTE | 2022-01-29 11:59 | CASEMGMT ---
Discharge Gunner'S Mate This fiction writer went to patient bedside. Patient is interested in SNF placement. Yuly Pt provided a list of SNF providers including quality and resource use data and consistent with the pt's preferred geographic region, medical needs, and insurance network via Care Port Guide Link. [facility]. This fiction writer sent referral to [facility] via [facility]. Plan: [facility], Waiting Acceptance Yuly Kaur Discharge Gunner'S Mate
--- NOTE | 2022-01-29 13:39 | CASEMGMT ---
Discharge Guest Services Assistant Yuly d/holden legal executive assistant called [facility]. Jodi logged into Care Port and seen referral. Will review now. Plan: [facility], John Acceptance
--- NOTE | 2022-01-29 14:14 | CHAPLAIN ---
Type of Pastoral Visit _x__ Initial Visit ___ Follow-up Visit ___ On-call Visit ___ General Patient Visit ___ Spiritual Assessment ___ Family Conference ___ Bereavement ___ Rapid Response ___ Code Blue ___ Other (describe below) Pastoral Care Referral From _x__ Patient ___ Family ___ Nurse ___ Physician ___ Radiology Tech ___ Retail Assistant Store Manager ___ Other (describe below) Sacrament/Intervention _x__ Active listening ___ Anointing ___ Mandaeism ___ Bereavement ___ Communion ___ [place] exploration ___ ___ Life review _x__ Prayer ___ Reconciliation ___ Sacrament of Sick _x__ Supportive presence ___ Wedding ___ Other (describe below) Pastoral Comments patient thinks that he remembers this lap hand tool and welcomes spiritual care; pt talks about his situation and coming to [place] to be near his sister who ; pt states that he suffers from anxiety and being shy, yet he talks openly and much; pt is looking at going to an SNF and talks about that idea; pt welcomes presence and prayer for support
[2022-01-29] MEDS: Tamsulosin HCl 0.4 MG Capsule PO (17:17)
[2022-01-29] MEDS: Polyethylene Glycol 3350 17 GM PACKET 34 GM PO (17:17)
[2022-01-29 17:35] LABS: Anion Gap 2 (5-15); BUN 12 mg/dL (7-18); BUN/Creat Ratio 11.8 RATIO (10-20); Calcium,Total 9.2 mg/dL (8.5-10.1); Chloride 114 mmol/L (98-107); Creatinine, Serum 1.02 mg/dL (0.70-1.30); EST Glomerular Filtration Rate 75 mL/min (>60); Est Glom Filt Rate - Afr Amer 91 mL/min (>60); Glucose 111 mg/dL (74-106); Potassium 3.7 mmol/L (3.5-5.1); Sodium Level 146 mmol/L (136-145)
[2022-01-29] MEDS: Glycerin 1 Suppository 1 SUPP RC (17:59)
[2022-01-29] MEDS: MELATONIN 10 MG TABLET PO (21:52)
[2022-01-29] MEDS: Ceftriaxone 1 GM/50 ML BAG IV (21:56)
[2022-01-29] MEDS: Mineral Oil 1 BOTTLE ENEMA 1 ML RC (22:22)
[2022-01-30] VITALS (9 sets, daily range): BP systolic 114–148; BP diastolic 74–84; PULSE 64–89; RESP 16–20; TEMP 36.2–36.4; O2SAT 92–96
[2022-01-30 04:56] LABS: Absolute Lymphocyte Count 1.43 X10^3/uL (0.83-4.51); Absolute Neutrophil Count 11.7 X10^3/uL (2.0-7.7); Basophil# 0.03 X10^3/uL; Basophil% 0.2 % (0-1); Eosinophils% 2.1 % (0-5); Hematocrit 36.7 % (40-54); Hemoglobin 11.9 g/dL (13.0-16.5); Lymphocyte # 1.43 X10^3/ul (0.83-4.51); Lymphocyte % 9.8 % (19-41); Mean Corp Hgb Conc 32.4 g/dL (32-36); Mean Corpuscular Hgb 28.7 pg (27.0-32.0); Mean Corpuscular Volume 88.6 fL (80-94); Mean Platelet Vol. 9.5 fl (6.2-12.0); Monocyte# 0.94 X10^3/uL; Monocyte% 6.5 % (0-10); NRBC Flagged by Analyzer 0 % (0-5); Neutrophil # 11.74 X10^3/uL (2.7-7.7); Neutrophil % 80.8 % (47-70); Platelet Count 296 K/mm3 (150-450); RBC Distribution Width CV 16.3 % (11.6-14.6); RBC Distribution Width SD 53.1 fl (35.1-43.9); Red Blood Count 4.14 M/mm3 (4.6-6.2); White Blood Count 14.5 K/mm3 (4.4-11.0)
[2022-01-30 05:28] LABS: ALB/GLOB Ratio 0.8 RATIO (0.9-2.4); AST(SGOT) 13 U/L (15-37); Alanine Aminotransfer ALT/SGPT 45 U/L (16-61); Albumin, Serum 2.7 g/dL (3.2-5.0); Alkaline Phosphatase 63 U/L (45-117); Anion Gap 5 (5-15); BUN 11 mg/dL (7-18); BUN/Creat Ratio 11.1 RATIO (10-20); Calcium,Total 8.7 mg/dL (8.5-10.1); Chloride 111 mmol/L (98-107); Creatinine, Serum 0.99 mg/dL (0.70-1.30); EST Glomerular Filtration Rate 78 mL/min (>60); Est Glom Filt Rate - Afr Amer 94 mL/min (>60); Estimated Creatinine Clearance 45.43 ml/min; Globulin 3.3 g/dL (2.2-4.2); Glucose 110 mg/dL (74-106); Potassium 3.2 mmol/L (3.5-5.1); Sodium Level 146 mmol/L (136-145)
[2022-01-30 05:31] LABS: Vitamin B12 196 pg/mL (211-911)
--- NOTE | 2022-01-30 09:11 | PN.HOSP_ITS ---
Subjective Subjective DOS 01/30/22 CC: Constipation Pt continues to have difficulties with constipation. His CT from 01/23 was reviewed with significant fecal retention and pt had reportedly not had BM since that time. Given enema and suppository as well as miralax, bladder scans for concern for retention. Reports breathing roughly the same, I/S and flutter valve given yesterday. Slight cough which he reports is chronic. Still not very good appetite and feeling weak. He denies CP, denies other complaints this AM> Objective Data Objective Data Vital Signs: Vital Signs Temp Pulse Resp BP Pulse Ox O2 Del Method O2 Flow Rate 97.5 F L 64 16 126/74 H 96 Nasal Cannula 2 01/30/22 08:28 01/30/22 08:28 01/30/22 08:28 01/30/22 08:28 01/30/22 08:28 01/30/22 08:30 01/30/22 08:30 Oxygen Flow Rate (L/min) 2 Oxygen Delivery Method Nasal Cannula Weight: 50.6 kg Body Mass Index (BMI) 18.0 Intake & Output: Intake and Output for Last 24 Hours 01/28/22 01/29/22 01/30/22 23:59 23:59 23:59 Intake Total 1101 / 1101 2080 / 2080 Output Total 300 / 600 400 / 400 Balance 1101 / 1101 1780 / 1480 -400 / -400 Medical Nutrition Assessment Dietitian: Malnutrition Criteria Met Start: 01/29/22 10:32 Freq: Status: Active Protocol: Document 01/29/22 10:33 (Rec: 01/29/22 10:33 [id number]) Nutrition Malnutrition Evidence of Malnutrition Exists Yes Malnutrition (severe): Chronic Evidenced By Weight Loss (Severe),Physical Changes (Moderate) Clinical Problem Chronic Disease or Condition Related Malnutrition Etiology severe related to suboptimal appetite Signs/Symptoms as evidenced by 14% weight loss in 2 months and moderate orbital and temporal fat and muscle loss Status Active Problem Recommendation Dietitian Recommendations/Changes Continue Regular diet RD will discontinue Ensure Clear and order Ensure Compact supplement Lab / Micro Data Result Diagrams: 01/30/22 04:33 01/30/22 04:33 Labs: Laboratory Results - last 24 hr 01/29/22 16:44: Sodium 146 H, Potassium 3.7, Chloride 114 H, Carbon Dioxide 30.0, Anion Gap 2 L, BUN 12, Creatinine 1.02, Estim Creat Clear Calc 44.10, Est GFR (MDRD) Af Amer 91, Est GFR (MDRD) Non-Af 75, BUN/Creatinine Ratio 11.8, Glucose 111 H, Calcium 9.2 01/30/22 04:33: WBC 14.5 H, RBC 4.14 L, Hgb 11.9 L, Hct 36.7 L, MCV 88.6, MCH 28.7, MCHC 32.4, RDW Std Deviation 53.1 H, RDW Coeff of Dariela 16.3 H, Plt Count 296, MPV 9.5, Immature Gran % (Auto) 0.600, Neut % (Auto) 80.8 H, Lymph % (Auto) 9.8 L, [place] % (Auto) 6.5, Eos % (Auto) 2.1, Baso % (Auto) 0.2, Absolute Neuts (auto) 11.7 H, Absolute Lymphs (auto) 1.43, Nucleated RBC % 0 01/30/22 04:33: Sodium 146 H, Potassium 3.2 L, Chloride 111 H, Carbon Dioxide 30.0, Anion Gap 5, BUN 11, Creatinine 0.99, Estim Creat Clear Calc 45.43, Est G FR (MDRD) Af Amer 94, Est GFR (MDRD) Non-Af 78, BUN/Creatinine Ratio 11.1, Glucose 110 H, Calcium 8.7, Magnesium 2.0, Total Bilirubin 0.60, AST 13 L, ALT 45, Alkaline Phosphatase 63, Total Protein 6.0 L, Albumin 2.7 L, Globulin 3.3, Albumin/Globulin Ratio 0.8 L 01/30/22 04:33: Vitamin B12 196 L Micro: Microbiology 01/28/22 17:29 Urine Catheter - Catheter Urine Culture - Final Staphylococcus epidermidis Physical Exam Const alert HEENT Head and Scalp: normocephalic Eyes Eyes Narrative: Difficulty following finger, no overt nystagmus appreciated Neck supple Resp normal respiratory effort Resp Narrative: On O2, coarse diffusely Cardio regular rate and regular rhythm GI soft to palpation, non-tender and non-distended Extremity Extremity Narrative: No edema appreciated Neuro moves all extremities Neuro Narrative: Finger to nose test suboptimal and took considerable effort and time while still missing nose slightly, difficulty with tracking finger, is alert and oriented Psych affect normal Assessment & Plan Assessment/Plan (1) Constipation: (2) Adult failure to thrive: (3) Frequent falls: PLAN: Plan #Adult failure to thrive: Poor appetite with frequent falls and poor social support PT OT evaluate and treat Patient will likely require fpc facility upon discharge. IV fluids as patient clinically appears dehydrated TSH 1.72 UTI- acute cystitis without hematuria UA with +leuk esterase and nitrites On rocephin, growing staph with sensitivities pending Follow-up urine culture and adjust antibiotics accordingly #Hypernatremia Improving, encourage hydration #ANASTACIO: Resolved with fluids, likely 2/2 dehydration #Severe protein-calorie malnutrition: Patient is very cachectic in appearance Ensure Enlive Consult nutrition Constipation: Schedule miralax Senna prn Dulcolax supp, mineral enema, miralax If continued no BM may need manual disimpaction today Bladder scans for urinary retention History of alcoholism: Pt reports being sober for 4 months Alcohol level not drawn this admission but past two levels have been negative Will start on thiamine and folic acid B12 low, started on supplementation Hypokalemia: Will replace History of dementia: Unclear type.? Patient is alert and oriented at at this time.? Continue with Namenda History of epilepsy: Per previous notes last seizure between 2009 and 2011 and had followed with neurology Continue lamictal Depression: Continue with fluoxetine Anemia, normocytic, chronic: appears chronic, normal value on admit likely 2/2 dehydration and hemoconcentration GERD: Continue with omeprazole BPH: Continue with tamsulosin VTE prophylaxis: Moderate risk.? Low medical weight heparin Charges/Coding Visit Charges Inpatient E&M: 43552 Subs Hosp L2
[2022-01-30] MEDS: Potassium Chloride Oral Tablet 20 MEQ PO (09:40)
[2022-01-30] MEDS: Polyethylene Glycol 3350 17 GM PACKET 34 GM PO (09:40)
[2022-01-30] MEDS: Potassium Chloride Oral Tablet 20 MEQ 40 MEQ PO (09:42)
[2022-01-30] MEDS: Folic Acid 1 MG Tablet PO (09:42)
[2022-01-30] MEDS: lamoTRIgine 150 MG Tablet PO ×2 (09:43→21:42)
[2022-01-30] MEDS: Cholecalciferol (Vit D3) 125 MCG CAPSULE (5,000 UNITS) PO (09:43)
[2022-01-30] MEDS: Pantoprazole Sodium 40 MG Tablet PO (09:43)
[2022-01-30] MEDS: amLODIPine 5 MG Tablet PO (09:43)
[2022-01-30] MEDS: Thiamine Hydrochloride 100 MG Tablet PO (09:43)
[2022-01-30] MEDS: FLUoxetine 20 MG Capsule PO (09:44)
[2022-01-30] MEDS: Lisinopril 10 MG Tablet PO (09:44)
[2022-01-30] MEDS: Senna/Docusate Sodium 1 Tablet 2 TABLET PO (09:51)
--- NOTE | 2022-01-30 11:07 | CASEMGMT ---
Discharge Post Manager This justowriter operator called [facility] to follow up on referral. Spoke to Jodi. Insurance is being reviewed and Jodi will respond in Care Port. German MORELAND Database Administrator
--- NOTE | 2022-01-30 11:58 | CASEMGMT ---
Discharge Manager Telecom J[facility] from [facility] reached out. Patient has been accepted at [facility]. APOORVA Rey notified. German MORELAND Jewelry Making Instructor
[2022-01-30] MEDS: levoFLOXacin IV 250 MG/50 ML BAG 50 MG IV (13:25)
[2022-01-30] MEDS: Tamsulosin HCl 0.4 MG Capsule PO (17:33)
[2022-01-30] MEDS: Senna/Docusate Sodium 1 Tablet PO (21:41)
[2022-01-30] MEDS: MELATONIN 10 MG TABLET PO (21:41)
[2022-01-31] VITALS (8 sets, daily range): BP systolic 131–152; BP diastolic 85–93; PULSE 72–88; RESP 16–20; TEMP 36.5–37; O2SAT 90–96
[2022-01-31 06:23] LABS: Absolute Lymphocyte Count 1.34 X10^3/uL (0.83-4.51); Absolute Neutrophil Count 13.7 X10^3/uL (2.0-7.7); Basophil# 0.03 X10^3/uL; Basophil% 0.2 % (0-1); Eosinophil# 0.05 X10^3/uL; Eosinophils% 0.3 % (0-5); Hematocrit 36.5 % (40-54); Hemoglobin 11.5 g/dL (13.0-16.5); Lymphocyte # 1.34 X10^3/ul (0.83-4.51); Lymphocyte % 8.3 % (19-41); Mean Corp Hgb Conc 31.5 g/dL (32-36); Mean Corpuscular Volume 88.8 fL (80-94); Mean Platelet Vol. 9.8 fl (6.2-12.0); Monocyte# 1.01 X10^3/uL; Monocyte% 6.2 % (0-10); NRBC Flagged by Analyzer 0 % (0-5); Neutrophil # 13.66 X10^3/uL (2.7-7.7); Neutrophil % 84.1 % (47-70); Platelet Count 356 K/mm3 (150-450); RBC Distribution Width CV 16.7 % (11.6-14.6); RBC Distribution Width SD 54.4 fl (35.1-43.9); Red Blood Count 4.11 M/mm3 (4.6-6.2); White Blood Count 16.2 K/mm3 (4.4-11.0)
[2022-01-31 07:02] LABS: ALB/GLOB Ratio 0.7 RATIO (0.9-2.4); AST(SGOT) 15 U/L (15-37); Alanine Aminotransfer ALT/SGPT 39 U/L (16-61); Albumin, Serum 2.6 g/dL (3.2-5.0); Alkaline Phosphatase 69 U/L (45-117); Anion Gap 3 (5-15); BUN 15 mg/dL (7-18); BUN/Creat Ratio 13.8 RATIO (10-20); Calcium,Total 9.1 mg/dL (8.5-10.1); Chloride 110 mmol/L (98-107); Creatinine, Serum 1.09 mg/dL (0.70-1.30); EST Glomerular Filtration Rate 70 mL/min (>60); Est Glom Filt Rate - Afr Amer 85 mL/min (>60); Estimated Creatinine Clearance 41.26 ml/min; Globulin 3.6 g/dL (2.2-4.2); Glucose 118 mg/dL (74-106); Potassium 4.2 mmol/L (3.5-5.1); Protein, Total 6.2 g/dL (6.4-8.2); Sodium Level 145 mmol/L (136-145)
[2022-01-31] MEDS: levoFLOXacin IV 250 MG/50 ML BAG 50 MG IV (10:01)
[2022-01-31] MEDS: Potassium Chloride Oral Tablet 20 MEQ 40 MEQ PO (10:24)
[2022-01-31] MEDS: Pantoprazole Sodium 40 MG Tablet PO (10:24)
[2022-01-31] MEDS: amLODIPine 5 MG Tablet PO (10:24)
[2022-01-31] MEDS: Senna/Docusate Sodium 1 Tablet PO ×2 (10:24→21:38)
[2022-01-31] MEDS: Thiamine Hydrochloride 100 MG Tablet PO (10:24)
[2022-01-31] MEDS: Cholecalciferol (Vit D3) 125 MCG CAPSULE (5,000 UNITS) PO (10:25)
[2022-01-31] MEDS: Folic Acid 1 MG Tablet PO (10:25)
[2022-01-31] MEDS: FLUoxetine 20 MG Capsule PO (10:25)
[2022-01-31] MEDS: Cyanocobalamin 500 MCG Tablet 1000 MCG PO (10:25)
[2022-01-31] MEDS: Polyethylene Glycol 3350 17 GM PACKET 34 GM PO (10:26)
[2022-01-31] MEDS: Lisinopril 10 MG Tablet PO (10:28)
[2022-01-31] MEDS: lamoTRIgine 150 MG Tablet PO ×2 (10:28→21:39)
--- NOTE | 2022-01-31 11:44 | CASEMGMT ---
Per admission questions patient does not have a Healthcare Power of Sales And Business Development Manager or Healthcare Living Will and he declined information. Krissy Schroeder SUPPORT SERVICES SPECIALIST SCOTTIE
--- NOTE | 2022-01-31 14:35 | CASEMGMT ---
Patient will be discharged to [place] under skilled level of care when medically ready. Krissy RUBIN
--- NOTE | 2022-01-31 15:42 | PCM.PN.HOSP ---
Subjective Subjective Doing well, no issues overnight. PT and OT demonstrate need for skilled therapy. Objective Data Objective Data Vital Signs: Vital Signs Temp Pulse Resp BP Pulse Ox O2 Del Method O2 Flow Rate 98.3 F 79 16 134/85 H 96 Nasal Cannula 2 01/31/22 15:15 01/31/22 15:15 01/31/22 15:15 01/31/22 15:15 01/31/22 15:15 01/31/22 15:15 01/31/22 15:15 Oxygen Flow Rate (L/min) 2 Oxygen Delivery Method Nasal Cannula Weight: 111 lb 8.862 oz Body Mass Index (BMI) 18.0 Intake & Output: Intake and Output for Last 24 Hours 01/30/22 01/31/22 02/01/22 03:59 03:59 03:59 Intake Total 2080 / 2080 730 / 730 540 / 540 Output Total 600 / 600 100 / 100 Balance 1480 / 1480 630 / 630 540 / 540 Medical Nutrition Assessment Dietitian: Malnutrition Criteria Met Start: 01/29/22 10:32 Freq: Status: Active Protocol: Document 01/29/22 10:33 LO (Rec: 01/29/22 10:33 [id number]) Nutrition Malnutrition Evidence of Malnutrition Exists Yes Malnutrition (severe): Chronic Evidenced By Weight Loss (Severe),Physical Changes (Moderate) Clinical Problem Chronic Disease or Condition Related Malnutrition Etiology severe related to suboptimal appetite Signs/Symptoms as evidenced by 14% weight loss in 2 months and moderate orbital and temporal fat and muscle loss Status Active Problem Recommendation Dietitian Recommendations/Changes Continue Regular diet RD will discontinue Ensure Clear and order Ensure Compact supplement Lab / Micro Data Result Diagrams: 01/31/22 05:30 01/31/22 05:30 Labs: Laboratory Results - last 24 hr 01/31/22 05:30: WBC 16.2 H, RBC 4.11 L, Hgb 11.5 L, Hct 36.5 L, MCV 88.8, MCH 28.0, MCHC 31.5 L, RDW Std Deviation 54.4 H, RDW Coeff of Dariela 16.7 H, Plt Count 356, MPV 9.8, Immature Gran % (Auto) 0.900, Neut % (Auto) 84.1 H, Lymph % (Auto) 8.3 L, [place] % (Auto) 6.2, Eos % (Auto) 0.3, Baso % (Auto) 0.2, Absolute Neuts (auto) 13.7 H, Absolute Lymphs (auto) 1.34, Nucleated RBC % 0 01/31/22 05:30: Sodium 145, Potassium 4.2, Chloride 110 H, Carbon Dioxide 32.0, Anion Gap 3 L, BUN 15, Creatinine 1.09, Estim Creat Clear Calc 41.26, Est GFR (MDRD) Af Amer 85, Est GFR (MDRD) Non-Af 70, BUN/Creatinine Ratio 13.8, Glucose 118 H, Calcium 9.1, Total Bilirubin 0.80, AST 15, ALT 39, Alkaline Phosphatase 69, Total Protein 6.2 L, Albumin 2.6 L, Globulin 3.6, Albumin/Globulin Ratio 0.7 L Micro: Microbiology 01/28/22 17:29 Urine Catheter - Catheter Urine Culture - Final Staphylococcus epidermidis Physical Exam Narrative General: Alert, Oriented x3, Cooperative, No apparent distress HEENT: Atraumatic, PERRLA, EOMI, Normocephalic Oral: Moist Mucosa Neck: Supple, No JVD Lungs: Diminished, Normal air movement, No rhonchi, No wheeze, No rales Cardiovascular: Regular rate, Regular Rhythm, Normal S1, Normal S2, No murmurs Abdomen: Soft, Non Tender, Non-Distended, No Hepato-splenomegaly Extremities: No edema, Capillary Refill Less than 3 Seconds Skin: No rashes, No breakdown Musculoskeletal: No Tenderness to Palpation of Joints or Extremities Neurological: Motor Exam 5/5 strength throughout, Sensory exam intact to light touch and pain Psych/Mental Status: Normal Affect, Appropriate Assessment & Plan Assessment/Plan (1) Constipation: (2) Adult failure to thrive: (3) Frequent falls: PLAN: Plan 1. Adult failure to thrive/UTI with staph epidermidis/HTN ? He does have severe protein calorie malnutrition, will consult nutrition ? Will increase his Levaquin from 250 mg daily to 750mg every 48 hours secondary to his creatinine clearance ? Renal function has been at baseline since admission ? PT/OT, plan for SNF discharge ? Continue with lisinopril and Norvasc 2. Constipation ? Continue with bowel regimen ? We will need to be discharged on the bowel regimen 3. History of alcoholism/history of dementia/depression/vitamin B12 deficiency ? Was given some thiamine in the ER under concerns of Sugeye's encephalopathy ? Continue with thiamine and folic acid ? B12 was low and was started on replacement ? Continue with Namenda ? Continue with Prozac 4. History of epilepsy ? Stable ? Continue with Lamictal 5. GERD ? Stable ? Continue with PPI 6. BPH ? Stable ? Continue with Flomax DVT: Lovenox Charges/Coding Visit Charges Inpatient E&M: 09088 Subs Hosp L2
[2022-01-31] MEDS: Tamsulosin HCl 0.4 MG Capsule PO (17:59)
[2022-01-31] MEDS: MELATONIN 10 MG TABLET PO (21:38)
[2022-02-01 03:13] VITALS: BP 129/99; PULSE 87; RESP 20; TEMP 36.7; O2SAT 88; O2SAT 93
[2022-02-01] MEDS: Enoxaparin 40 MG/0.4 ML Syringe SC (05:12)
[2022-02-01] MEDS: Acetaminophen 325 MG Tablet 650 MG PO (05:33)
--- NOTE | 2022-02-01 05:56 | NURSING ---
P[employer] MAKING [employer] OPERATOR and RN to pt room d/t pt bed alarm sounding. pt noted with legs out of edge of bed. pt states, getting up to restroom. pt is not easily redirected and becomes angry with staff. bedside commode obtained, pt noted with quick, jerky, unsteady movements to bedside commode. Pt without void or BM at this time. brief was noted with BM smear, and small amount of urine. shantelle care provided. clean brief applied. Pt noted without sleep past 2 shifts, pt noted with wide eyes bizarre type effect at this time. Pt assisted back to bed, with assistance x2 and placed in position of comfort with HOB elevated. MD updated on pt. PRN tylenol provided for general discomfort. pt noted with difficulty swallowing medications. pt failed dysphagia screen, SP02 89% on 3LNC, lungs with rhonchi throughout. 02 increased to 4L NC pt with weak wet cough, respirations unlabored, no respiratory distress noted. Pt NPO at this time. MD updated on pt. Charge nurse updated on pt condition. no new ordered at this time will monitor.
--- NOTE | 2022-02-01 06:03 | NURSING ---
Addendum entered by Kay Mcdaniels 02/01/22 06:08: 02-01-2022 0300. Original Note: Pt noted with large loose BM present in brief. pt with brief around pr knees playing in BM. pt noted to make 'masturbation gesture' towards INTER COM INSTALLER and this RN. pt redirected at this time. pericare provided, clean brief and linens provided. Pt noted a&ox3 at this time. HOB Elevated, 02 intact, bed alarm on will monitor.
[2022-02-01 06:49] LABS: Absolute Lymphocyte Count 1.94 X10^3/uL (0.83-4.51); Absolute Neutrophil Count 8.6 X10^3/uL (2.0-7.7); Basophil# 0.05 X10^3/uL; Basophil% 0.4 % (0-1); Eosinophil# 0.44 X10^3/uL; Eosinophils% 3.6 % (0-5); Hematocrit 36.1 % (40-54); Hemoglobin 11.5 g/dL (13.0-16.5); Lymphocyte # 1.94 X10^3/ul (0.83-4.51); Lymphocyte % 15.9 % (19-41); Mean Corp Hgb Conc 31.9 g/dL (32-36); Mean Corpuscular Hgb 28.3 pg (27.0-32.0); Mean Corpuscular Volume 88.9 fL (80-94); Mean Platelet Vol. 9.8 fl (6.2-12.0); Monocyte# 1.08 X10^3/uL; Monocyte% 8.9 % (0-10); NRBC Flagged by Analyzer 0 % (0-5); Neutrophil # 8.59 X10^3/uL (2.7-7.7); Neutrophil % 70.5 % (47-70); Platelet Count 363 K/mm3 (150-450); RBC Distribution Width CV 16.6 % (11.6-14.6); RBC Distribution Width SD 54.4 fl (35.1-43.9); Red Blood Count 4.06 M/mm3 (4.6-6.2); White Blood Count 12.2 K/mm3 (4.4-11.0)
[2022-02-01 07:13] VITALS: O2SAT 93
[2022-02-01 08:38] VITALS: BP 129/99; PULSE 87; RESP 20; TEMP 36.7; O2SAT 93
[2022-02-01 08:45] VITALS: BP 148/94; PULSE 67; RESP 18; TEMP 36.2; O2SAT 96
[2022-02-01] MEDS: Polyethylene Glycol 3350 17 GM PACKET 34 GM PO (08:57)
[2022-02-01] MEDS: Pantoprazole Sodium 40 MG Tablet PO (08:58)
[2022-02-01] MEDS: Potassium Chloride Oral Tablet 20 MEQ 40 MEQ PO (08:58)
[2022-02-01] MEDS: Cholecalciferol (Vit D3) 125 MCG CAPSULE (5,000 UNITS) PO (08:59)
[2022-02-01] MEDS: amLODIPine 5 MG Tablet PO (08:59)
[2022-02-01] MEDS: FLUoxetine 20 MG Capsule PO (08:59)
[2022-02-01] MEDS: Thiamine Hydrochloride 100 MG Tablet PO (08:59)
[2022-02-01] MEDS: Folic Acid 1 MG Tablet PO (08:59)
[2022-02-01] MEDS: Cyanocobalamin 500 MCG Tablet 1000 MCG PO (09:00)
[2022-02-01] MEDS: Lisinopril 10 MG Tablet PO (09:00)
[2022-02-01] MEDS: lamoTRIgine 150 MG Tablet PO (09:01)
[2022-02-01] MEDS: levoFLOXacin IV 750 MG/150 ML BAG 100 MG IV (09:10)
--- NOTE | 2022-02-01 09:49 | CM.ED ---
APOORVA reviewed chart at 6:30pm and no discharge entered for patient. Helen LUNA
--- NOTE | 2022-02-01 10:42 | PCM.TXEXTCAR ---
Diet Diet Order/Speech Therapy: 02/01/22 08:53 Diet: Regular - General Food consistency:: Soft & Bite Sized Liquid Consistency:: Regular/Thin Is pt able to select menu?: No Routine Orders/Code Status Routine Lab Work: CBC and BMP Code Status: DNRCC-A Therapies Physical Therapy: Eval and Treat Occupational Therapy: Eval and Treat Speech Therapy: Eval and Treat Problem/Diagnosis (1) Constipation: Status: Acute Code(s): K59.00 - Constipation, unspecified (2) Adult failure to thrive: Status: Acute Code(s): R62.7 - Adult failure to thrive (3) Frequent falls: Status: Acute Code(s): R29.6 - Repeated falls Plan 1. Adult failure to thrive/UTI with staph epidermidis/HTN ? He does have severe protein calorie malnutrition, will consult nutrition ? Will increase his Levaquin from 250 mg daily to 750mg every 48 hours secondary to his creatinine clearance ? Renal function has been at baseline since admission ? PT/OT, plan for SNF discharge ? Continue with lisinopril and Norvasc 2. Constipation ? Continue with bowel regimen ? We will need to be discharged on the bowel regimen 3. History of alcoholism/history of dementia/depression/vitamin B12 deficiency ? Was given some thiamine in the ER under concerns of Wernicke's encephalopathy ? Continue with thiamine and folic acid ? B12 was low and was started on replacement ? Continue with Namenda ? Continue with Prozac 4. History of epilepsy ? Stable ? Continue with Lamictal 5. GERD ? Stable ? Continue with PPI 6. BPH ? Stable ? Continue with Flomax DVT: Lovenox Allergies/Procedures Done in Hospital Allergies bupropion HCl [From Wellbutrin] Allergy (Verified 01/28/22 16:25) SHAKING quetiapine fumarate [From Seroquel] Allergy (Verified 01/28/22 16:25) Unknown trazodone Adverse Reaction (Verified 01/28/22 16:25) SHAKING Procedures: None Type of Care/Length of Stay Estimated LOS: Convalescent Care Less Than 30 days Type of Care Needed: Skilled Rehab Potential: Good Prognosis: Good Additional Orders/Day of Discharge Day of Discharge: 02/01/22 Dietary and Speech Recommendations Dietitian Recommendations/Changes: Continue Regular diet RD will discontinue Ensure Clear and order Ensure Compact supplement Discharge Plan Admission Admit Date/Time: 01/28/22 19:23 Attending Provider: yTlor Raza Primary Care Provider: Jhonatan Zapien Consulting Providers: Mario Gill ; Debora Zhu Discharge Orders/Prescriptions Prescriptions: New cyanocobalamin (vitamin B-12) 500 mcg Tablet 1,000 mcg PO BREAKFAST Qty: 0 0RF folic acid 1 mg Tablet 1 mg PO BREAKFAST Qty: 0 0RF melatonin 10 mg Tablet, Sublingual 10 mg PO QHS Qty: 0 0RF polyethylene glycol 3350 17 gram Powder In Packet 34 g PO DAILY Qty: 0 0RF sennosides-docusate sodium [Stool Softener-Stimulant Laxat] 8.6-50 mg Tablet 1 tab PO BID Qty: 0 0RF thiamine HCl (vitamin B1) [Vitamin B-1] 100 mg Tablet 100 mg PO BREAKFAST Qty: 0 0RF levofloxacin 750 mg tablet 750 mg PO Q48H Qty: 3 0RF Rx Instructions: Start 02/03/2022 Continued fluoxetine 20 mg capsule 20 mg PO DAILY Qty: 90 2RF cholecalciferol (vitamin D3) 125 mcg (5,000 unit) capsule 125 mcg PO DAILY lamotrigine 150 mg tablet 150 mg PO BID Qty: 60 5RF ondansetron HCl 4 mg tablet 4 mg PO TID PRN (Reason: nausea and vomiting) Qty: 90 5RF lisinopril 10 mg tablet 10 mg PO DAILY Qty: 90 3RF amlodipine 5 mg tablet 5 mg PO DAILY Qty: 90 3RF polyethylene glycol 3350 [Miralax] 17 gram/dose powder 17 g PO DAILY PRN (Reason: constipation) Qty: 119 0RF potassium chloride 20 mEq tablet extended release 40 meq PO DAILY 2 Days Qty: 4 0RF omeprazole 40 mg capsule,delayed release(DR/EC) 40 mg PO DAILY Qty: 90 3RF tamsulosin 0.4 mg capsule 0.4 mg PO DAILY@1830 Qty: 180 3RF memantine 10 mg tablet See Rx Instructions .ROUTE .COMPLEX Qty: 56 2RF Dose Instruction: TAKE 1 TABLET BY MOUTH TWICE A DAY Rx Instructions: TAKE 1 TABLET BY MOUTH TWICE A DAY Referrals / Follow Up: Jhonatan Zapien MD [Primary Care Provider] - Disposition Disposition (needs filled in before D/C Order can be placed): [facility]
[2022-02-01 11:09] VITALS: BP 148/94; PULSE 67; RESP 18; TEMP 36.2; O2SAT 96
--- NOTE | 2022-02-01 11:20 | PCA ---
Called [facility] for transport to [place]. Requested wheelchair and 02 and [facility] for transport. ETA approx. 3 hours. confirmation# [id number]
--- NOTE | 2022-02-01 11:25 | PCM.DC.SUM ---
Providers Date of Admission: 01/28/22 Primary Care Physician: Dr. Jhonatan Zapien MD Reason For Visit: FALL, DEBILITY Diagnosis Discharge Diagnosis (1) Constipation: Status: Acute Code(s): K59.00 - Constipation, unspecified (2) Adult failure to thrive: Status: Acute Code(s): R62.7 - Adult failure to thrive (3) Frequent falls: Status: Acute Code(s): R29.6 - Repeated falls Plan 1. Adult failure to thrive/UTI with staph epidermidis/HTN ? He does have severe protein calorie malnutrition, will consult nutrition ? Will increase his Levaquin from 250 mg daily to 750mg every 48 hours secondary to his creatinine clearance ? Renal function has been at baseline since admission ? PT/OT, plan for SNF discharge ? Continue with lisinopril and Norvasc 2. Constipation ? Continue with bowel regimen ? We will need to be discharged on the bowel regimen 3. History of alcoholism/history of dementia/depression/vitamin B12 deficiency ? Was given some thiamine in the ER under concerns of Wernicke's encephalopathy ? Continue with thiamine and folic acid ? B12 was low and was started on replacement ? Continue with Namenda ? Continue with Prozac 4. History of epilepsy ? Stable ? Continue with Lamictal 5. GERD ? Stable ? Continue with PPI 6. BPH ? Stable ? Continue with Flomax DVT: Lovenox Medications at Discharge Home Medications fluoxetine 20 mg capsule 20 mg PO DAILY DEPRESSION #90 caps 08/07/20 cholecalciferol (vitamin D3) 125 mcg (5,000 unit) capsule 125 mcg PO DAILY 09/11/20 lisinopril 10 mg tablet 10 mg PO DAILY HTN #90 tabs 04/30/21 lamotrigine 150 mg tablet 150 mg PO BID #60 tabs 07/15/21 ondansetron HCl 4 mg tablet 4 mg PO TID PRN nausea and vomiting #90 tabs 07/15/21 omeprazole 40 mg capsule,delayed release 40 mg PO DAILY GERD #90 caps 07/19/21 tamsulosin 0.4 mg capsule 0.4 mg PO DAILY@1830 prostate #180 caps 08/16/21 amlodipine 5 mg tablet 5 mg PO DAILY BP #90 tabs 12/03/21 polyethylene glycol 3350 17 gram/dose oral powder (Miralax) 17 g PO DAILY PRN constipation #119 grams 01/23/22 potassium chloride 20 mEq tablet,extended release 40 meq PO DAILY 2 days #4 tabs 01/23/22 memantine 10 mg tablet See Rx Instructions .Route .COMPLEX #56 tabs 01/31/22 cyanocobalamin (vitamin B-12) 500 mcg tablet 1,000 mcg PO BREAKFAST #0 tabs 02/01/22 folic acid 1 mg tablet 1 mg PO BREAKFAST #0 tabs 02/01/22 levofloxacin 750 mg tablet 750 mg PO Q48H #3 tabs 02/01/22 melatonin 10 mg sublingual tablet 10 mg PO QHS #0 tabs 02/01/22 polyethylene glycol 3350 17 gram oral powder packet 34 g PO DAILY #0 ea 02/01/22 sennosides 8.6 mg-docusate sodium 50 mg tablet (Stool Softener-Stimulant Laxative) 1 tab PO BID #0 tabs 02/01/22 thiamine HCl (vitamin B1) 100 mg tablet (Vitamin B-1) 100 mg PO BREAKFAST #0 tabs 02/01/22 Hospital Course Operations None Procedures None Summary of Care Provided Minutes Spent on Discharge: 38 Hospital Course: Per HPI: ANA RIVERA, is a 76 M who presents with falls from home.? Patient was just recently here for constipation.? Still has not had a bowel movement since that time.? States that he has been drinking water and coffee but not eating much, stating he just has no appetite.? States that he feels dizzy when he stands up.? Presents to the emergency room and was felt to have a urinary tract infection and received ceftriaxone as well as thiamine.? Patient was having a difficult time speaking with the emergency room and there was concerned about that Warnicke's encephalopathy so patient did receive 100 mg of thiamine.? Patient is alert and oriented x3 my evaluation.? Patient also did receive IV fluids. Hospital Course: 1. Adult failure to thrive with a staph epidermidis UTI/constipation?76-year-old male presents from home with failure to thrive as well as continued constipation he has been staying hydrated but not eating very much and was feeling dizzy when he was standing up so he presented to the hospital. He was found to have a UTI and started on Levaquin, I did increase the dose to 750 mg every other day secondary to his creatinine clearance. I do recommend 3 more days on discharge to SNF. He was also placed on a bowel regimen which will be continued on discharge for his constipation. I discussed with him the plan for discharge today to start physical therapy at SNF. 2. History of alcoholism/history of dementia/depression/vitamin B12 deficiency? Will continue with thiamine and folic acid on discharge also his B12 was low to less than 200 so I do recommend chronic B12 supplementation as well. Otherwise can resume his Namenda and Prozac 3. Epilepsy, GERD, hypertension, BPH are all chronic medical condition, care. His home medications were continued where appropriate Physical Exam Narrative General: Alert, Cooperative, No apparent distress HEENT: Atraumatic, PERRLA, EOMI, Normocephalic Oral: Moist Mucosa Neck: Supple, No JVD Lungs: Diminished, Normal air movement, No rhonchi, No wheeze, No rales Cardiovascular: Regular rate, Regular Rhythm, Normal S1, Normal S2, No murmurs Abdomen: Soft, Non Tender, Non-Distended, No Hepato-splenomegaly Extremities: No edema, Capillary Refill Less than 3 Seconds Skin: No rashes, No breakdown Musculoskeletal: No Tenderness to Palpation of Joints or Extremities Neurological: Motor Exam 5/5 strength throughout, Sensory exam intact to light touch and pain Psych/Mental Status: Normal Affect, Appropriate Medical Records Data Medical Nutrition Assessment Dietitian: Malnutrition Criteria Met Start: 01/29/22 10:32 Freq: Status: Active Protocol: Document 01/29/22 10:33 LO (Rec: 01/29/22 10:33 [id number]) Nutrition Malnutrition Evidence of Malnutrition Exists Yes Malnutrition (severe): Chronic Evidenced By Weight Loss (Severe),Physical Changes (Moderate) Clinical Problem Chronic Disease or Condition Related Malnutrition Etiology severe related to suboptimal appetite Signs/Symptoms as evidenced by 14% weight loss in 2 months and moderate orbital and temporal fat and muscle loss Status Active Problem Recommendation Dietitian Recommendations/Changes Continue Regular diet RD will discontinue Ensure Clear and order Ensure Compact supplement Weight / BMI Weight Weight: 111 lb 8.862 oz Body Mass Index (BMI) 18.0 ABG / Lab / Microbiology Data Result Diagrams: 02/01/22 05:30 01/31/22 05:30 Laboratory: Laboratory Results - last 24 hr 02/01/22 05:30: WBC 12.2 H, RBC 4.06 L, Hgb 11.5 L, Hct 36.1 L, MCV 88.9, MCH 28.3, MCHC 31.9 L, RDW Std Deviation 54.4 H, RDW Coeff of Dariela 16.6 H, Plt Count 363, MPV 9.8, Immature Gran % (Auto) 0.700, Neut % (Auto) 70.5 H, Lymph % (Auto) 15.9 L, [place] % (Auto) 8.9, Eos % (Auto) 3.6, Baso % (Auto) 0.4, Absolute Neuts (auto) 8.6 H, Absolute Lymphs (auto) 1.94, Nucleated RBC % 0 Microbiology: Microbiology 01/28/22 17:29 Urine Catheter - Catheter Urine Culture - Final Staphylococcus epidermidis Meaningful Use Info Meaningful Use Diagnoses (Choose all that apply): None applicable Discharge Plan Admission Admit Date/Time: 01/28/22 19:23 Attending Provider: Tylor Raza Primary Care Provider: Jhonatan Zapien Consulting Providers: Mario Gill ; Debora hZu Discharge Orders/Prescriptions Prescriptions: New cyanocobalamin (vitamin B-12) 500 mcg Tablet 1,000 mcg PO BREAKFAST Qty: 0 0RF folic acid 1 mg Tablet 1 mg PO BREAKFAST Qty: 0 0RF melatonin 10 mg Tablet, Sublingual 10 mg PO QHS Qty: 0 0RF polyethylene glycol 3350 17 gram Powder In Packet 34 g PO DAILY Qty: 0 0RF sennosides-docusate sodium [Stool Softener-Stimulant Laxat] 8.6-50 mg Tablet 1 tab PO BID Qty: 0 0RF thiamine HCl (vitamin B1) [Vitamin B-1] 100 mg Tablet 100 mg PO BREAKFAST Qty: 0 0RF levofloxacin 750 mg tablet 750 mg PO Q48H Qty: 3 0RF Rx Instructions: Start 02/03/2022 Continued fluoxetine 20 mg capsule 20 mg PO DAILY Qty: 90 2RF cholecalciferol (vitamin D3) 125 mcg (5,000 unit) capsule 125 mcg PO DAILY lamotrigine 150 mg tablet 150 mg PO BID Qty: 60 5RF ondansetron HCl 4 mg tablet 4 mg PO TID PRN (Reason: nausea and vomiting) Qty: 90 5RF lisinopril 10 mg tablet 10 mg PO DAILY Qty: 90 3RF amlodipine 5 mg tablet 5 mg PO DAILY Qty: 90 3RF polyethylene glycol 3350 [Miralax] 17 gram/dose powder 17 g PO DAILY PRN (Reason: constipation) Qty: 119 0RF potassium chloride 20 mEq tablet extended release 40 meq PO DAILY 2 Days Qty: 4 0RF omeprazole 40 mg capsule,delayed release(DR/EC) 40 mg PO DAILY Qty: 90 3RF tamsulosin 0.4 mg capsule 0.4 mg PO DAILY@1830 Qty: 180 3RF memantine 10 mg tablet See Rx Instructions .ROUTE .COMPLEX Qty: 56 2RF Dose Instruction: TAKE 1 TABLET BY MOUTH TWICE A DAY Rx Instructions: TAKE 1 TABLET BY MOUTH TWICE A DAY Referrals / Follow Up: Jhonatan Zapien MD [Primary Care Provider] - Disposition Disposition (needs filled in before D/C Order can be placed): Residential Facility Charges/Coding Visit Charges Inpatient E&M: 11126 Disch Hosp
--- NOTE | 2022-02-01 12:30 | CM.ED ---
SW Note SW completed 7000 form and printed of 7000 for patient's chart. Helen LUNA
== END 2022-02-01 13:16 | disposition skilled nursing facility (03) | DRG 640 ==
LOC: ED 18:59 → PCU 21:05
PROVIDERS: Internal Medicine; Emergency Provider Emergency Medicine; PCP Internal Medicine; Visit Provider Family Medicine
DX: R62.7 Adult failure to thrive (principal); E43 Unspecified severe protein-calorie malnutrition; E87.0 Hyperosmolality and hypernatremia; N30.00 Acute cystitis without hematuria; Z68.1 Body mass index [BMI] 19.9 or less, adult; F03.90 Unspecified dementia, unspecified severity, without behavioral disturbance, psychotic disturbance, mood disturbance, and anxiety; E86.0 Dehydration; G40.909 Epilepsy, unspecified, not intractable, without status epilepticus; F10.21 Alcohol dependence, in remission; I10 Essential (primary) hypertension; K21.9 Gastro-esophageal reflux disease without esophagitis; K58.1 Irritable bowel syndrome with constipation; E87.6 Hypokalemia; F41.9 Anxiety disorder, unspecified; E55.9 Vitamin D deficiency, unspecified; Z87.891 Personal history of nicotine dependence; F32.A Depression, unspecified; N40.0 Benign prostatic hyperplasia without lower urinary tract symptoms; R29.6 Repeated falls; Z79.899 Other long term (current) drug therapy; B95.7 Other staphylococcus as the cause of diseases classified elsewhere
CPT/HCPCS: 36415; 80048; 80053; 81001; 82607; 83735; 84443; 85025; 87077; 87086; 87088; 87186; 93005; 97110; 97116; 97163; 97166; 97530; 97535; 97802; 99285; 99406; J7030; J7040; A4216; J3490

== ENCOUNTER 2022-10-14 08:14 | Emergency (ER) | payer OTHER, SELFPAY ==
[2022-10-14 08:15] VITALS: BP 170/96; PULSE 76; RESP 14; TEMP 36.6; O2SAT 92; BMI 24.9
--- NOTE | 2022-10-14 08:30 | RAD_ITS ---
INDICATION: Injury/Pain EXAMINATION/TECHNIQUE: X-RAY - XR Spine Lumbar 2 or 3 Views COMPARISON: 06/17/2020. FINDINGS: VERTEBRAE: Moderate compression fracture of L1, L2 and L4 unchanged since the prior examination. No new fracture is identified. No spondylolisthesis. Preservation of the normal lumbar lordosis. DISCS: Narrowing of L4-L5 disc space. INCLUDED ABDOMEN: Atherosclerotic calcifications of the abdominal aorta. Surgical clips in the abdomen and upper pelvis. RAD/Lumbar Spine 2 or 3 Views IMPRESSION: Multiple old compression fractures unchanged since prior exam. No demonstrated acute fracture. Electronically Signed: Saul Roberts MD at 9:19 EDT ,
[2022-10-14] MEDS: Morphine 4 MG/ML Syringe IM (08:42)
[2022-10-14] MEDS: diazePAM 5 MG Tablet 2.5 MG PO (08:42)
--- NOTE | 2022-10-14 10:08 | EDS_ITS ---
HPI History of Present Illness Chief Complaint: Back Informant: patient Onset/Context/Timing Onset: Days (2-3) Context: Gradual Onset Timing: Continuous Quality: Sharp Location: Lumbar Worsened by: improves with Movement and - (Coughing) Relieved by: Nothing Associated Symptoms Associated Symptoms: Negative for Numbness, Tingling, Radiation to Right Leg, Radiation to Left Leg, Fever, Abdominal Pain, Dysuria, Unable to Ambulate, Unable to Transfer, Urinary Retention, Urinary Incontinence, Constipation or Fecal Incontinence Narrative Narrative: Patient presents with low back pain that has been getting worse over the last 2 to 3 days. Patient states it is constant and sharp. Patient states he was using a rowing machine a few days ago. Patient states he thinks this may have aggravated his back pain. Patient states his pain is worse with movement and with coughing. Patient denies any radiation of the pain down his legs. Patient denies any bowel or bladder changes. Patient denies any saddle anesthesia. Chris hanson denies any abdominal pain. [facility] Medical History Anemia Anxiety Cerumen impaction Change in mental status Depression Flu vaccine need GERD (gastroesophageal reflux disease) History of alcohol abuse History of fracture of clavicle History of kidney stones Hypertension IBS (irritable bowel syndrome) Nausea vomiting and diarrhea Severe protein-calorie malnutrition Vitamin D deficiency Home Medications fluoxetine 20 mg capsule 20 mg PO DAILY DEPRESSION #90 caps 08/07/20 [Rx Last Taken Unknown] cholecalciferol (vitamin D3) 125 mcg (5,000 unit) capsule 125 mcg PO DAILY 09/11/20 [History Last Taken Unknown] lisinopril 10 mg tablet 10 mg PO DAILY HTN #90 tabs 04/30/21 [Rx Last Taken Unknown] lamotrigine 150 mg tablet 150 mg PO BID #60 tabs 07/15/21 [Rx Last Taken Unknown] ondansetron HCl 4 mg tablet 4 mg PO TID PRN nausea and vomiting #90 tabs 07/15/21 [Rx Last Taken Unknown] omeprazole 40 mg capsule,delayed release 40 mg PO DAILY GERD #90 caps 07/19/21 [Rx Last Taken Unknown] tamsulosin 0.4 mg capsule 0.4 mg PO DAILY@1830 prostate #180 caps 08/16/21 [Rx Last Taken Unknown] amlodipine 5 mg tablet 5 mg PO DAILY BP #90 tabs 12/03/21 [Rx Last Taken Unknown] polyethylene glycol 3350 17 gram/dose oral powder (Miralax) 17 g PO DAILY PRN constipation #119 grams 01/23/22 [Rx Last Taken Unknown] potassium chloride 20 mEq tablet,extended release 40 meq PO DAILY 2 days #4 tabs 01/23/22 [Rx Last Taken Unknown] memantine 10 mg tablet See Rx Instructions .Route .COMPLEX #56 tabs 01/31/22 [Rx Last Taken Unknown] cyanocobalamin (vitamin B-12) 500 mcg tablet 1,000 mcg PO BREAKFAST #0 tabs 02/01/22 [Rx Last Taken Unknown] folic acid 1 mg tablet 1 mg PO BREAKFAST #0 tabs 02/01/22 [Rx Last Taken Unknown] levofloxacin 750 mg tablet 750 mg PO Q48H #3 tabs 02/01/22 [Rx Last Taken Unknown] melatonin 10 mg sublingual tablet 10 mg PO QHS #0 tabs 02/01/22 [Rx Last Taken Unknown] polyethylene glycol 3350 17 gram oral powder packet 34 g PO DAILY #0 ea 02/01/22 [Rx Last Taken Unknown] sennosides 8.6 mg-docusate sodium 50 mg tablet (Stool Softener-Stimulant Laxative) 1 tab PO BID #0 tabs 02/01/22 [Rx Last Taken Unknown] thiamine HCl (vitamin B1) 100 mg tablet (Vitamin B-1) 100 mg PO BREAKFAST #0 tabs 02/01/22 [Rx Last Taken Unknown] denosumab 60 mg/mL subcutaneous syringe (Prolia) 60 mg subcut [id number] #1 mL 05/06/22 [Rx Last Taken Unknown] hydrocodone-acetaminophen 5-325mg 5mg-325mg 1 tab PO Q6H PRN PRN Pain 3 days #10 TABLETS 10/14/22 [Rx Last Taken Unknown] Allergy/AdvReac Type Severity Reaction Status Date / Time bupropion HCl Allergy SHAKING Verified 01/28/22 16:25 [From Wellbutrin] quetiapine fumarate Allergy Unknown Verified 01/28/22 16:25 [From Seroquel] trazodone AdvReac SHAKING Verified 01/28/22 16:25 Family History Other Anemia Anxiety Breast cancer Cancer Depression Hypertension Osteoporosis Surgical History History of hip surgery History of intestinal surgery History of tonsillectomy Social History household members: none Smoking Status: Former smoker Tobacco: How many years used: 50 alcohol intake: former year quit: 2019 substance use type: marijuana what type of physical activity do you participate in: none ROS ROS ED Constitutional Constitutional ED: Denies chills or fever(s) Eyes Eyes: Denies blurry vision or change in vision ENT ENT ED: Denies rhinorrhea or sore throat Cardiovascular Cardiovascular: Denies chest pain or palpitations Respiratory/Chest Respiratory/Chest: Denies cough or dyspnea Gastrointestinal Gastrointestinal: Denies nausea or vomiting Genitourinary Genitourinary ED: Denies dysuria or hematuria Musculoskeletal Musculoskeletal: Reports back pain; Denies neck pain Integumentary Denies abscess or rash Neurologic Neurologic: Denies headache(s) or weakness Allergic/Immunologic Allergic/Immunologic ED: Denies mouth swelling or urticaria EXAM Physical Exam Const Vital Signs: 10/14/22 08:15 Temperature 97.8 F Temperature Source Temporal Pulse Rate 76 Respiratory Rate 14 Blood Pressure 170/96 H Blood Pressure Mean 120 Pulse Ox 92 Oxygen Delivery Method Room Air Positive well nourished and well developed General Appearance ED: well developed and NAD HEENT Reports moist mucous membranes Neck supple and no JVD Resp normal respiratory effort and clear to auscultation bilaterally Cardio regular rate and regular rhythm GI soft to palpation and non-tender Back/Spine Back/Spine Narrative: There is tender is over the lower lumbar spine and paraspinal muscles. There is no bony crepitance or step-off. Range of motion was limited in all motions of the lumbar spine secondary to pain. Straight leg raises were negative bilaterally. Strength is 5/5 bilaterally in the lower extremities. There are no sensory deficits noted. Deep tendon reflexes were 2/4 bilaterally. Lumbar Spine / Lower Back: ROM limited and straight leg raise negative bilaterally Extremity normal to inspection General Extremety ED: Negative for edema or tenderness General Extremity: Negative for edema Neuro oriented x3 and no sensory deficits noted Sensorium / Orientation: alert Motor Exam: strength 5/5 throughout Deep Tendon Reflexes: Rt Patellar (L4): 2+, Lt Patellar (L4): 2+, Rt Ankle (S1): 2+ and Lt Ankle (S1): 2+ Deep Tendon Reflexes Back: Rt Patellar (L4): 2+, Lt Patellar (L4): 2+, Rt Ankle (S1): 2+ and Lt Ankle (S1): 2+ Psych mental status grossly normal MDM MDM MDM Narrative Medical decision making narrative: Differential diagnosis includes degenerative arthritis, compression fracture, lumbosacral strain, lumbar radiculopathy, and sciatica. X-rays of the lumbar sp ine will be obtained to assess for compression fracture and spondylolisthesis. Radiography Diagnostic Testing: Clinical Impression(s) from Imaging Studies Lumbar Spine X-Ray 10/14/22 08:30 IMPRESSION: Multiple old compression fractures unchanged since prior exam. No demonstrated acute fracture. Electronically Signed: Saul Roberts MD at 9:19 EDT , X-rays of the lumbar spine were obtained. There are 3 views. On my independent interpretation, there are compression fractures of T12, L1, L2, and L4. These are unchanged from previous exam. There is no acute fracture or spondylolisthesis. There are degenerative changes noted. Radiologist also interpreted the x-rays and agrees. Treatment and Re-Evaluation Narrative: Patient was given injection of morphine here. Patient was given a dose of Valium here. Patient states he had minimal improvement in his pain with this. Patient was given a dose of [place] here. Patient was given a prescription for a short course of [place]. Patient was instructed to follow-up with his primary care physician in 5 to 7 days. Patient understood and was agreeable with the plan. All questions were answered. Discharge Plan Triage Chief Complaint: Back ED Provider: Mario Drummond Dx/Rx/DC Orders Clinical Impression: Acute low back pain, Lumbar compression fracture Prescriptions: New hydrocodone-acetaminophen [hydrocodone-acetaminophen] 5-325 mg tablet 1 tab PO Q6H PRN PRN (Reason: Pain) 3 Days Qty: 10 0RF No Action fluoxetine 20 mg capsule 20 mg PO DAILY Qty: 90 2RF cholecalciferol (vitamin D3) 125 mcg (5,000 unit) capsule 125 mcg PO DAILY lamotrigine 150 mg tablet 150 mg PO BID Qty: 60 5RF ondansetron HCl 4 mg tablet 4 mg PO TID PRN (Reason: nausea and vomiting) Qty: 90 5RF lisinopril 10 mg tablet 10 mg PO DAILY Qty: 90 3RF amlodipine 5 mg tablet 5 mg PO DAILY Qty: 90 3RF polyethylene glycol 3350 [Miralax] 17 gram/dose powder 17 g PO DAILY PRN (Reason: constipation) Qty: 119 0RF potassium chloride 20 mEq tablet extended release 40 meq PO DAILY 2 Days Qty: 4 0RF cyanocobalamin (vitamin B-12) 500 mcg Tablet 1,000 mcg PO BREAKFAST Qty: 0 0RF folic acid 1 mg Tablet 1 mg PO BREAKFAST Qty: 0 0RF melatonin 10 mg Tablet, Sublingual 10 mg PO QHS Qty: 0 0RF polyethylene glycol 3350 17 gram Powder In Packet 34 g PO DAILY Qty: 0 0RF sennosides-docusate sodium [Stool Softener-Stimulant Laxat] 8.6-50 mg Tablet 1 tab PO BID Qty: 0 0RF thiamine HCl (vitamin B1) [Vitamin B-1] 100 mg Tablet 100 mg PO BREAKFAST Qty: 0 0RF levofloxacin 750 mg tablet 750 mg PO Q48H Qty: 3 0RF Rx Instructions: Start 02/03/2022 omeprazole 40 mg capsule,delayed release(DR/EC) 40 mg PO DAILY Qty: 90 3RF tamsulosin 0.4 mg capsule 0.4 mg PO DAILY@1830 Qty: 180 3RF memantine 10 mg tablet See Rx Instructions .ROUTE .COMPLEX Qty: 56 2RF Dose Instruction: TAKE 1 TABLET BY MOUTH TWICE A DAY Rx Instructions: TAKE 1 TABLET BY MOUTH TWICE A DAY Prolia 60 mg/mL syringe 60 mg subcut [id number] Qty: 1 0RF Primary Care Provider: Care Physician,No Primary Referrals: Care Physician,No Primary [Primary Care Provider] - Disposition Disposition: Home, Self Care
[2022-10-14] MEDS: HYDROcodone Bitartrate/Apap 5/325 Tablet PO (10:26)
== END 2022-10-14 10:30 | disposition home or self-care (01) ==
PROVIDERS: Emergency Provider Emergency Medicine; Visit Provider Emergency Medicine
DX: M48.56XA Collapsed vertebra, not elsewhere classified, lumbar region, initial encounter for fracture (principal); I10 Essential (primary) hypertension; Z87.891 Personal history of nicotine dependence; X50.9XXA Other and unspecified overexertion or strenuous movements or postures, initial encounter
CPT/HCPCS: 72100; 96372; 99285

== ENCOUNTER 2023-02-07 16:00 | Emergency (ER) | payer MEDICARE, MEDICAID, SELFPAY ==
[2023-02-07] VITALS (7 sets, daily range): BP systolic 102–116; BP diastolic 48–96; PULSE 73–78; RESP 13–16; TEMP 36.3–36.9; O2SAT 96–99; BMI 26.3; BMI 25.7
--- NOTE | 2023-02-07 16:33 | CT_ITS ---
STUDY: CT BRAIN WITHOUT CONTRAST REASON FOR EXAM: Male, 77 years old. confused RADIATION DOSAGE (If Supplied By Facility): CTDIvol = ( 44.99 ) mGy, DLP = ( 779.24 ) mGycm TECHNIQUE: Transaxial CT imaging of the brain was performed without administration of intravenous contrast material. Individualized dose optimization techniques were used for this CT. COMPARISON: 09/05/2020 FINDINGS: Normal soft tissue structures. Normal calvarium. Central parenchymal volume loss. White matter changes that are nonspecific but most commonly associated with chronic small vessel ischemic disease. Normal basal ganglia and thalami. Normal brainstem. Normal cerebellum. There is no intracranial hemorrhage. There are no findings of an acute ischemic infarction. Small right maxillary sinus air-fluid level.
--- NOTE | 2023-02-07 16:35 | EDS_ITS ---
HPI History of Present Illness Chief Complaint: Weakness Informant: patient Onset/Context/Timing Onset: Days Context: Gradual Onset Timing: Continuous Current Severity: Moderate Maximum Severity: Moderate Narrative Narrative: 77-year-old male poor informant from a local apartment complex. Reportedly sent in for generalized weakness and failure to thrive. Patient really cannot give me any history. Prior similar symptoms: Yes Recent Illness/Hospitalization: Yes [facility] Medical History (Updated 02/07/23 @ 18:[address] Bill Salmeron MD) Anemia Anxiety Cerumen impaction Change in mental status CKD (chronic kidney disease) Depression Flu vaccine need GERD (gastroesophageal reflux disease) History of alcohol abuse History of fracture of clavicle History of kidney stones Hypertension IBS (irritable bowel syndrome) Nausea vomiting and diarrhea Seizure disorder Severe protein-calorie malnutrition Vitamin D deficiency Home Medications fluoxetine 20 mg capsule 20 mg PO DAILY DEPRESSION #90 caps 08/07/20 [Rx Last Taken Unknown] lisinopril 10 mg tablet 10 mg PO DAILY HTN #90 tabs 04/30/21 [Rx Last Taken Unknown] lamotrigine 150 mg tablet 150 mg PO BID #60 tabs 07/15/21 [Rx Last Taken Unknown] ondansetron HCl 4 mg tablet 4 mg PO TID PRN nausea and vomiting #90 tabs 07/15/21 [Rx Last Taken Unknown] omeprazole 40 mg capsule,delayed release 40 mg PO DAILY GERD #90 caps 07/19/21 [Rx Last Taken Unknown] tamsulosin 0.4 mg capsule 0.4 mg PO DAILY@1830 prostate #180 caps 08/16/21 [Rx Last Taken Unknown] amlodipine 5 mg tablet 5 mg PO DAILY BP #90 tabs 12/03/21 [Rx Last Taken Unknown] polyethylene glycol 3350 17 gram/dose oral powder (Miralax) 17 g PO DAILY PRN constipation #119 grams 01/23/22 [Rx Last Taken Unknown] potassium chloride 20 mEq tablet,extended release 40 meq (2 x 20 mEq) PO DAILY 2 days #4 tabs 01/23/22 [Rx Last Taken Unknown] memantine 10 mg tablet See Rx Instructions .Route .COMPLEX #56 tabs 01/31/22 [Rx Last Taken Unknown] cyanocobalamin (vitamin B-12) 500 mcg tablet 1,000 mcg (2 x 500 mcg) PO BREAKFAST #0 tabs 02/01/22 [Rx Last Taken Unknown] folic acid 1 mg tablet 1 mg PO BREAKFAST #0 tabs 02/01/22 [Rx Last Taken Unknown] levofloxacin 750 mg tablet 750 mg PO Q48H #3 tabs 02/01/22 [Rx Last Taken Unknown] melatonin 10 mg sublingual tablet 10 mg PO QHS #0 tabs 02/01/22 [Rx Last Taken Unknown] polyethylene glycol 3350 17 gram oral powder packet 34 g PO DAILY #0 ea 02/01/22 [Rx Last Taken Unknown] sennosides 8.6 mg-docusate sodium 50 mg tablet (Stool Softener-Stimulant Laxative) 1 tab PO BID #0 tabs 02/01/22 [Rx Last Taken Unknown] thiamine HCl (vitamin B1) 100 mg tablet (Vitamin B-1) 100 mg PO BREAKFAST #0 tabs 02/01/22 [Rx Last Taken Unknown] denosumab 60 mg/mL subcutaneous syringe (Prolia) 60 mg subcut O1HBVGBS #1 mL 05/06/22 [Rx Last Taken Unknown] hydrocodone-acetaminophen 5-325mg 5mg-325mg 1 tab PO Q6H PRN PRN Pain 3 days #10 TABLETS 10/14/22 [Rx Last Taken Unknown] buspirone 5 mg tablet 5 mg PO BID 01/06/23 [History Last Taken Unknown] mirtazapine 7.5 mg tablet 7.5 mg PO QHS 01/06/23 [History Last Taken Unknown] montelukast 10 mg tablet 10 mg PO QHS 01/06/23 [History Last Taken Unknown] risperidone 0.5 mg tablet 0.5 mg PO QHS 01/06/23 [History Last Taken Unknown] Allergy/AdvReac Type Severity Reaction Status Date / Time bupropion HCl Allergy SHAKING Verified 02/07/23 16:07 [From Wellbutrin] quetiapine fumarate Allergy Unknown Verified 02/07/23 16:07 [From Seroquel] trazodone AdvReac SHAKING Verified 02/07/23 16:07 Family History (Updated 02/07/23 @ 16:[address] Tia Patel MD) Mother Cancer Breast cancer Hypertension Father Cancer Hypertension Other Anemia Anxiety Depression Osteoporosis Surgical History (Updated 02/07/23 @ 18:[address] Tia Patel MD) History of hip surgery History of intestinal surgery History of tonsillectomy S/P cardiac pacemaker procedure Social History household members: none Smoking Status: Current every day smoker tobacco type: cigarettes Tobacco: How many years used: 50 alcohol intake: former year quit: 2019 substance use type: marijuana what type of physical activity do you participate in: none ROS ROS ED ROS Narrative Patient is unable to give me an accurate review of systems due to his mental status. Review of Systems ROS Unobtainable: due to mental status EXAM Physical Exam Narrative Exam Narrative: 77-year-old male vital signs are stable his pressure is borderline low at 102/56. His pulse ox is 96% on room air. Afebrile. He does not look septic or toxic. He does look dehydrated. H EENT exam dry mucous membranes otherwise unremarkable. Normal speech. No facial droop. No trauma to his face or scalp. Neck nontender. No lymphadenopathy. No meningismus. Lungs clear to auscultation. Heart regular rhythm rate about 80 no murmur. Chest wall and ribs nontender. Abdomen soft nontender. Nondistended no peritoneal signs. No hernia or mass. Moving all 4 extremities. Trace edema in his lower legs and feet. He is able to do dorsi and plantarflexion and normal conductor orchestra strength. Neurologically he seems confused. He is eyes are open he is answering questions. But his answers are not appropriate or accurate. There is no focal motor deficits. Const Vital Signs: 02/07/23 16:03 02/07/23 16:13 02/07/23 16:19 Temperature 98.4 F Temperature Source Temporal Pulse Rate 76 77 Respiratory Rate 13 16 Respiratory Effort Normal Non-Labored Respiratory Pattern Normal Blood Pressure 102/56 L 106/53 L Blood Pressure Mean 71 70 Pulse Ox 96 97 Oxygen Delivery Method Room Air Room Air 02/07/23 17:23 Temperature Temperature Source Pulse Rate 75 Respiratory Rate 14 Respiratory Effort Respiratory Pattern Blood Pressure 116/96 H Blood Pressure Mean 102 Pulse Ox 97 Oxygen Delivery Method Room Air Positive well nourished, well developed and unkempt; Negative for obese, cachectic or contractures General Appearance ED: unkempt, well developed and NAD; Negative for cachectic, contractures, cyanotic, diaphoretic or pallor Nutritional Appearance: Negative for cachectic or obese HEENT Reports dry mucous membranes; Denies moist mucous membranes Negative for trauma or tenderness Mouth ED: Yes dry mucous membranes Mouth: dry mucous membranes Eyes PERRL General Eye ED: Negative for pale conjunctiva or scleral icterus Neck no lymphadenopathy, supple and no JVD General: Negative for tenderness Lymph Lymphatic: Negative for other Chest Wall inspection of chest normal and palpation of chest normal Chest: Negative for other Resp normal respiratory effort and clear to auscultation bilaterally Effort and Inspection: Negative for retractions Auscultation: Negative for rales, rhonchi or wheezes Cardio regular rate, regular rhythm, S1 normal heart sound, S2 normal heart sound and no murmurs GI normal to inspection, nondistended, normoactive bowel sounds, non-tender, non- distended and no masses Inspection: Negative for abdominal distention Auscultation: normoactive bowel sounds Palpation: soft; Negative for tender or guarding Back/Spine no CVA tenderness General Back: Negative for CVA tenderness Cervical Spine: Negative for cervical spine tenderness Thoracic Spine / Upper Back: Negative for thoracic spinal tenderness Lumbar Spine / Lower Back: Negative for lumbar spinal tenderness Extremity normal to inspection Extremity Narrative: Trace edema both lower extremities. Nontender. General Extremety ED: Yes edema; Negative for tenderness General Extremity: edema Neuro No oriented x3 and CN's II-XII intact bilaterally Neuro Narrative: Patient is awake. His eyes are open. He is following commands. He is a very very poor informant seems confused. He has no focal motor deficits. No facial droop. His speech is normal. Sensorium / Orientation: alert and orientation impaired; Negative for lethargic or stuporous Motor Exam: strength 5/5 throughout Psych mental status grossly normal Appearance: unkempt Attitude: No agitated Mood & Affect: Negative for depressed, anxious or tearful Skin no rashes or lesions noted and no wounds General Skin Exam: Negative for jaundice or pallor Lesions: No lesion noted Rashes: No rashes noted Trauma: Negative for abrasion Wounds: Negative for wounds noted MDM MDM MDM Narrative Medical decision making narrative: 77-year-old male from an apartment complex and basically failure to thrive. Clinically looks dehydrated. Screening labs CAT scan and chest x-ray to be obtained. I will speak to the hospitalist for admission once labs return. He is receiving IV fluids. Currently there is no one available with him. Repeat exam no significant change. Patient was treated with a liter normal saline. IV started on IV antibiotics both Rocephin and Zithromax for right lower lobe pneumonia. He has been typed and crossed for 2 units. Will be transfused a unit. I spoken to the hospitalist has been evaluated the patient. And I will be admitted to the PCU. History & Record Review Discussion w/independent historian: Patient Additional record(s) reviewed:: Prior inpatient record, Prior outpatient record, Prior ED visit and Prior labs Lab Data Attestation: I reviewed the patient's lab results. Lab results narrative: CBC shows white count 4.3. H&H is 7.4 and 22.7. Platelets 141,000. Patient has a pancytopenia. Urinalysis is unremarkable. No nitrites. No white or red cells. No bacteria. Compared to prior labs the patient has a significant anemia today of 7.4 it was previously around 11 in the past. He also previously had normal renal function and today he has dehydration with renal insufficiency. Labs: Laboratory Results - last 24 hr 02/07/23 02/07/23 16:55 17:05 WBC 4.3 L RBC 2.44 L Hgb 7.4 L Hct 22.7 L MCV 93.0 MCH 30.3 MCHC 32.6 RDW Std Deviation 51.5 H RDW Coeff of Dariela 15.1 H Plt Count 141 L MPV 10.0 Immature Gran % (Auto) 0.900 Neut % (Auto) 59.8 Lymph % (Auto) 14.8 L Titus % (Auto) 23.5 H Eos % (Auto) 0.5 Baso % (Auto) 0.5 Absolute Neuts (auto) 2.5 Absolute Lymphs (auto) 0.63 L Nucleated RBC % 0 Sodium 135 L Potassium 4.7 Chloride 104 Carbon Dioxide 24.0 Anion Gap 7 BUN 34 H Creatinine 1.51 H Estim Creat Clear Calc 36.97 Est GFR (MDRD) Af Amer 58 L Est GFR (MDRD) Non-Af 48 L BUN/Creatinine Ratio 22.5 H Glucose 88 Calcium 7.9 L Total Bilirubin 0.70 AST 47 H ALT 31 Alkaline Phosphatase 168 H Total Protein 5.0 L Albumin 1.9 L Globulin 3.1 Albumin/Globulin Ratio 0.6 L Urine Color Yellow Urine Clarity Clear Urine pH 5.0 Ur Specific Slade 1.020 Urine Protein 15 H Urine Glucose (UA) Normal Urine Ketones 5 H Urine Occult Blood Negative Urine Nitrite Negative Urine Bilirubin Negative Urine Urobilinogen 1 H Ur Leukocyte Esterase 25 H Urine RBC 0 SEEN Urine WBC 0-5 SEEN Ur Squamous Epith Cells 0 SEEN Urine Bacteria 0 SEEN Urine Mucus 0 SEEN Radiography Chest X-Ray - ED: 1 View, Read by ED Physician, Heart, Lungs, Mediastinum, Bony Structures, No Acute Disease and Right Infiltrate Diagnostic Testing: Clinical Impression(s) from Imaging Studies Brain CT 02/07/23 16:33 IMPRESSION: No acute intracranial hemorrhage or mass effect. Electronically Signed: Rafael Enriquez MD ([place]) at 17:28 EDT Reading Location ID and State: [facility] / [place] , Service support , Chest x-ray, portable, single view shows right lower lobe infiltrate. Normal cardiac silhouette. Left-sided pacemaker. Critical Care Time Critical Care Time: Yes Critical care time (excluding procedures): 30-74 minutes, Including time spent:, Discussing w/Patient &/or Family/Channel Cementer, Discussing w/Consultants, Arranging Admission or Transfer, Performing Direct Patient Care at Bedside and - (33 min) Discharge Plan Dx/Rx/DC Orders Clinical Impression: Acute anemia, Acute dehydration, Adult failure to thrive, Right lower lobe pneumonia Disposition Disposition: [facility]
--- NOTE | 2023-02-07 16:49 | NURSING ---
sister travon called for update. verified pt's birthdate and name as pt unable to say who he is or where he lives even. hospital pharmacy technician to attempt to call [employer] ([employer]) at this time also
[2023-02-07] MEDS: 0.9% Normal Saline (1000mL) 1,000 ML 1000 ML IV (16:55)
[2023-02-07 17:06] LABS: Bacteria 0 SEEN /hpf (None Seen); Mucous, Urine 0 SEEN /hpf (<or=2+); Red Blood Cells-Urine 0 SEEN /hpf (0-5); Squamous Epithelial Cells - UA 0 SEEN /hpf (0-5)
[2023-02-07 17:08] LABS: Color, Urine Yellow (Yellow); Glucose, Dipstick Normal (Normal); Ketone-Dipstick 5 mg/dl (Negative); Leukocyte Esterase-Dipstick 25 /ul (Negative); Nitrite-Dipstick Negative (Negative); Occult Blood-Urine Negative /ul (Negative); Protein-Dipstick 15 mg/dl (Negative); Urine Bilirubin Dipstick Negative (Negative); Urine Clarity Clear (Clear); Urine Urobilinogen 1 mg/dl (Normal)
--- NOTE | 2023-02-07 17:12 | RAD_ITS ---
STUDY: X-RAY CHEST REASON FOR EXAM: Male, 82 years old. COUGH TECHNIQUE: AP COMPARISON: 02/03/2017 FINDINGS: Two lead cardiac conduction device is seen via the left subclavian vein with lead tips projecting over the right atrium and right ventricle, respectively. Airspace disease of the right lung base is new. There is no demonstrated pleural abnormality. Normal size heart. Normal mediastinum and gisselle. Normal visualized pulmonary arteries. Normal visualized aortic arch and descending thoracic aorta. No acute bony process. There is no demonstrated abnormality of the visualized soft tissue structures of the upper abdomen.
[2023-02-07 17:15] LABS: White Blood Cells 0-5 SEEN /hpf (0-5)
[2023-02-07 17:25] LABS: ALB/GLOB Ratio 0.6 RATIO (0.9-2.4); AST(SGOT) 47 U/L (15-37); Alanine Aminotransfer ALT/SGPT 31 U/L (16-61); Albumin, Serum 1.9 g/dL (3.2-5.0); Alkaline Phosphatase 168 U/L (45-117); Anion Gap 7 (5-15); BUN 34 mg/dL (7-18); BUN/Creat Ratio 22.5 RATIO (10-20); Calcium,Total 7.9 mg/dL (8.5-10.1); Chloride 104 mmol/L (98-107); Creatinine, Serum 1.51 mg/dL (0.70-1.30); EST Glomerular Filtration Rate 48 mL/min (>60); Est Glom Filt Rate - Afr Amer 58 mL/min (>60); Estimated Creatinine Clearance 36.97 ml/min; Globulin 3.1 g/dL (2.2-4.2); Glucose 88 mg/dL (74-106); Potassium 4.7 mmol/L (3.5-5.1); Sodium Level 135 mmol/L (136-145)
--- NOTE | 2023-02-07 18:12 | HP.PCM.HOS_ITS ---
HPI - General General Date of Admission: 02/07/23 Date of Service: 02/07/23 Chief Complaint: Falls, adult failure to thrive HPI Narrative ANA NIX, is a 82 M who presents [facility] Medical History Anemia Anxiety Cerumen impaction Change in mental status Depression Flu vaccine need GERD (gastroesophageal reflux disease) History of alcohol abuse History of fracture of clavicle History of kidney stones Hypertension IBS (irritable bowel syndrome) Nausea vomiting and diarrhea Severe protein-calorie malnutrition Vitamin D deficiency Home Medications fluoxetine 20 mg capsule 20 mg PO DAILY DEPRESSION #90 caps 08/07/20 [Rx Last Taken Unknown] lisinopril 10 mg tablet 10 mg PO DAILY HTN #90 tabs 04/30/21 [Rx Last Taken Unknown] lamotrigine 150 mg tablet 150 mg PO BID #60 tabs 07/15/21 [Rx Last Taken Unknown] ondansetron HCl 4 mg tablet 4 mg PO TID PRN nausea and vomiting #90 tabs 0 07/15/21 [Rx Last Taken Unknown] omeprazole 40 mg capsule,delayed release 40 mg PO DAILY GERD #90 caps 07/19/21 [Rx Last Taken Unknown] tamsulosin 0.4 mg capsule 0.4 mg PO DAILY@1830 prostate #180 caps 08/16/21 [Rx Last Taken Unknown] amlodipine 5 mg tablet 5 mg PO DAILY BP #90 tabs 12/03/21 [Rx Last Taken Unknown] polyethylene glycol 3350 17 gram/dose oral powder (Miralax) 17 g PO DAILY PRN constipation #119 grams 01/23/22 [Rx Last Taken Unknown] potassium chloride 20 mEq tablet,extended release 40 meq (2 x 20 mEq) PO DAILY 2 days #4 tabs 01/23/22 [Rx Last Taken Unknown] memantine 10 mg tablet See Rx Instructions .Route .COMPLEX #56 tabs 01/31/22 [Rx Last Taken Unknown] cyanocobalamin (vitamin B-12) 500 mcg tablet 1,000 mcg (2 x 500 mcg) PO BREAKFAST #0 tabs 02/01/22 [Rx Last Taken Unknown] folic acid 1 mg tablet 1 mg PO BREAKFAST #0 tabs 02/01/22 [Rx Last Taken Unknown] levofloxacin 750 mg tablet 750 mg PO Q48H #3 tabs 02/01/22 [Rx Last Taken Unknown] melatonin 10 mg sublingual tablet 10 mg PO QHS #0 tabs 02/01/22 [Rx Last Taken Unknown] polyethylene glycol 3350 17 gram oral powder packet 34 g PO DAILY #0 ea 02/01/22 [Rx Last Taken Unknown] sennosides 8.6 mg-docusate sodium 50 mg tablet (Stool Softener-Stimulant Laxative) 1 tab PO BID #0 tabs 02/01/22 [Rx Last Taken Unknown] thiamine HCl (vitamin B1) 100 mg tablet (Vitamin B-1) 100 mg PO BREAKFAST #0 tabs 02/01/22 [Rx Last Taken Unknown] denosumab 60 mg/mL subcutaneous syringe (Prolia) 60 mg subcut [id number] #1 mL 05/06/22 [Rx Last Taken Unknown] hydrocodone-acetaminophen 5-325mg 5mg-325mg 1 tab PO Q6H PRN PRN Pain 3 days #10 TABLETS 10/14/22 [Rx Last Taken Unknown] buspirone 5 mg tablet 5 mg PO BID 01/06/23 [History Last Taken Unknown] mirtazapine 7.5 mg tablet 7.5 mg PO QHS 01/06/23 [History Last Taken Unknown] montelukast 10 mg tablet 10 mg PO QHS 01/06/23 [History Last Taken Unknown] risperidone 0.5 mg tablet 0.5 mg PO QHS 01/06/23 [History Last Taken Unknown] Allergy/AdvReac Type Severity Reaction Status Date / Time bupropion HCl Allergy SHAKING Verified 02/07/23 16:07 [From Wellbutrin] quetiapine fumarate Allergy Unknown Verified 02/07/23 16:07 [From Seroquel] trazodone AdvReac SHAKING Verified 02/07/23 16:07 Family History (Updated 02/07/23 @ 16:[address] Tia Patel MD) Mother Cancer Breast cancer Hypertension Father Cancer Hypertension Other Anemia Anxiety Depression Osteoporosis Surgical History History of hip surgery History of intestinal surgery History of tonsillectomy Social History household members: none Smoking Status: Current every day smoker tobacco type: cigarettes Tobacco: How many years used: 50 alcohol intake: former year quit: 2019 substance use type: marijuana what type of physical activity do you participate in: none Vital Signs Vital Signs Vital Signs: 02/07/23 16:03 02/07/23 16:13 02/07/23 16:19 Temperature 98.4 F Temperature Source Temporal Pulse Rate 76 77 Respiratory Rate 13 16 Respiratory Effort Normal Non-Labored Respiratory Pattern Normal Blood Pressure 102/56 L 106/53 L Blood Pressure Mean 71 70 Pulse Ox 96 97 Oxygen Delivery Method Room Air Room Air 02/07/23 17:23 Temperature Temperature Source Pulse Rate 75 Respiratory Rate 14 Respiratory Effort Respiratory Pattern Blood Pressure 116/96 H Blood Pressure Mean 102 Pulse Ox 97 Oxygen Delivery Method Room Air Weight Weight: 163 lb Body Mass Index (BMI) 26.3 Results Lab / Micro Data 02/07/23 16:55 02/07/23 16:55 Labs: Laboratory Results - last 24 hr 02/07/23 16:55: WBC 4.3 L, RBC 2.44 L, Hgb 7.4 L, Hct 22.7 L, MCV 93.0, MCH 30.3, MCHC 32.6, RDW Std Deviation 51.5 H, RDW Coeff of Dariela 15.1 H, Plt Count 141 L, MPV 10.0, Immature Gran % (Auto) 0.900, Neut % (Auto) 59.8, Lymph % (Auto) 14.8 L, Jay % (Auto) 23.5 H, Eos % (Auto) 0.5, Baso % (Auto) 0.5, Absolute Neuts (auto) 2.5, Absolute Lymphs (auto) 0.63 L, Nucleated RBC % 0, Sodium 135 L, Potassium 4.7, Chloride 104, Carbon Dioxide 24.0, Anion Gap 7, BUN 34 H, Creatinine 1.51 H, Estim Creat Clear Calc 36.97, Est GFR (MDRD) Af Amer 58 L, Est GFR (MDRD) Non-Af 48 L, BUN/Creatinine Ratio 22.5 H, Glucose 88, Calcium 7.9 L, Total Bilirubin 0.70, AST 47 H, ALT 31, Alkaline Phosphatase 168 H, Total Protein 5.0 L, Albumin 1.9 L, Globulin 3.1, Albumin/Globulin Ratio 0.6 L 02/07/23 17:05: Urine Color Yellow, Urine Clarity Clear, Urine pH 5.0, Ur Specific [place] 1.020, Urine Protein 15 H, Urine Glucose (UA) Normal, Urine Ketones 5 H, Urine Occult Blood Negative, Urine Nitrite Negative, Urine Bilirubin Negative, Urine Urobilinogen 1 H, Ur Leukocyte Esterase 25 H, Urine RBC 0 SEEN, Urine WBC 0-5 SEEN, Ur Squamous Epith Cells 0 SEEN, Urine Bacteria 0 SEEN, Urine Mucus 0 SEEN Radiology Impression Brain CT 02/07/23 16:33 IMPRESSION: No acute intracranial hemorrhage or mass effect. Electronically Signed: Rafael Enriquez MD ([place]) at 17:28 EDT ,
--- NOTE | 2023-02-07 18:12 | ED.RN ---
TALKED WITH A NURSE AT [facility] AND ASKED THAT THEY SEND US THE CORRECT INFORMATION ON THE CORRECT PATIENT. ONUR SCOTT, NURSE AT [facility], VERIFIED THE PT NAME IS ANA NIX. ASKED IF SHE COULD PLEASE FAX ALL OF HIS INFORMATION TO THE ER. FAX NUMBER WAS GIVEN TO SAID NURSE. NURSE STATED THE ANA RIVERA'S INFO WAS GIVEN TO [facility]. SHE STATED EMS QUESTIONED THE INFO BECAUSE IT HAD THE WRONG ROOM NUMBER ON THE INFO. NURSE STATES SHE THOUGHT THE EMS WAS GIVEN THE CORRECT INFO. THIS INTERACTION TOOK PLACE AFTER MULTIPLE ATTEMPTS TO CALL [facility] AND HAD TO SEND HRO OFFICER SENDY TO THE FACILITY TO GET SOMEONE TO CALL. DISPATCH WAS ALSO UNABLE TO GET AHOLD OF ANY PERSON AT THE FACILITY.
[2023-02-07] MEDS: Ceftriaxone 1 GM/50 ML BAG IV (18:44)
[2023-02-07] MEDS: Azithromycin 500 MG in Dextrose 5%-Water (250mL Bag) 250 ML 250 MG IV (18:45)
--- NOTE | 2023-02-07 18:51 | NURSING ---
[facility] and social. pt name changed over in [facility] all but med record number. labs and images all changed under the right pt id. 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 pt admitted to floor
[2023-02-07 21:05] LABS: Bedside Glucose 106 mg/dL (74-106)
== END 2023-02-07 19:40 | disposition other institution (70) | DRG 948 ==
LOC: ED 18:12 → PCU 19:07
PROVIDERS: Emergency Medicine; Emergency Provider Family Medicine; Referring Provider Family Medicine; Visit Provider Family Medicine
DX: R53.1 Weakness (principal)
CPT/HCPCS: 36415; 70450; 71045; 80053; 81001; 82962; 85025; 86850; 86900; 86901; 87040; 93005; 99285; J7030; J7040; A4216

== ENCOUNTER 2023-03-18 06:50 | Emergency (ER) | payer MEDICARE, MEDICAID, SELFPAY ==
[2023-03-18 06:52] VITALS: BP 134/108; PULSE 88; RESP 16; TEMP 36.6; O2SAT 94; BMI 23.4
--- NOTE | 2023-03-18 07:18 | RAD_ITS ---
INDICATION: chills EXAMINATION/TECHNIQUE: X-RAY - XR Chest 2 Views COMPARISON: January 23, 2022 FINDINGS: LINES/DEVICES: None. LUNGS: The lungs are hyperinflated. There are bibasilar linear opacities. No pneumothorax. MEDIASTINUM AND CARDIOVASCULAR STRUCTURES: Cardiac silhouette not enlarged. Central airways and mediastinal contour are unremarkable. BONES AND SOFT TISSUES: There are plate and screw fixation devices within the left clavicle. The bones are diffusely demineralized. There are multilevel vertebral body compression deformities. RAD/Chest PA and Lateral IMPRESSION: Bibasilar atelectasis. Electronically Signed: Melly Nguyen MD at 8:27 EST ,
--- NOTE | 2023-03-18 07:19 | EX.ED.DYSGE1 ---
HPI History of Present Illness Chief Complaint: Hypertension Informant: patient Narrative Narrative: [facility] in from [facility] due to elevated blood pressure on normal checks this morning. States blood pressure over 200. History of hypertension. He is on blood pressure medicines. States he was given his morning medicines and then sent here. Denies headache chest pains abdominal pain nausea or vomiting. States she does have chills. No fevers. He states he did not want to, however was made to come. [facility] Medical History Anemia Anxiety Cerumen impaction Change in mental status CKD (chronic kidney disease) Depression Flu vaccine need GERD (gastroesophageal reflux disease) History of alcohol abuse History of fracture of clavicle History of kidney stones Hypertension IBS (irritable bowel syndrome) Nausea vomiting and diarrhea Seizure disorder Severe protein-calorie malnutrition Vitamin D deficiency Home Medications fluoxetine 20 mg capsule 20 mg PO DAILY DEPRESSION #90 caps 08/07/20 [Rx Last Taken Unknown] lisinopril 10 mg tablet 10 mg PO DAILY HTN #90 tabs 04/30/21 [Rx Last Taken Unknown] lamotrigine 150 mg tablet 150 mg PO BID #60 tabs 07/15/21 [Rx Last Taken Unknown] ondansetron HCl 4 mg tablet 4 mg PO TID PRN nausea and vomiting #90 tabs 07/15/21 [Rx Last Taken Unknown] omeprazole 40 mg capsule,delayed release 40 mg PO DAILY GERD #90 caps 07/19/21 [Rx Last Taken Unknown] tamsulosin 0.4 mg capsule 0.4 mg PO DAILY@1830 prostate #180 caps 08/16/21 [Rx Last Taken Unknown] amlodipine 5 mg tablet 5 mg PO DAILY BP #90 tabs 12/03/21 [Rx Last Taken Unknown] polyethylene glycol 3350 17 gram/dose oral powder (Miralax) 17 g PO DAILY PRN constipation #119 grams 01/23/22 [Rx Last Taken Unknown] potassium chloride 20 mEq tablet,extended release 40 meq (2 x 20 mEq) PO DAILY 2 days #4 tabs 01/23/22 [Rx Last Taken Unknown] memantine 10 mg tablet See Rx Instructions .Route .COMPLEX #56 tabs 01/31/22 [Rx Last Taken Unknown] cyanocobalamin (vitamin B-12) 500 mcg tablet 1,000 mcg (2 x 500 mcg) PO BREAKFAST #0 tabs 02/01/22 [Rx Last Taken Unknown] folic acid 1 mg tablet 1 mg PO BREAKFAST #0 tabs 02/01/22 [Rx Last Taken Unknown] levofloxacin 750 mg tablet 750 mg PO Q48H #3 tabs 02/01/22 [Rx Last Taken Unknown] melatonin 10 mg sublingual tablet 10 mg PO QHS #0 tabs 02/01/22 [Rx Last Taken Unknown] polyethylene glycol 3350 17 gram oral powder packet 34 g PO DAILY #0 ea 02/01/22 [Rx Last Taken Unknown] sennosides 8.6 mg-docusate sodium 50 mg tablet (Stool Softener-Stimulant Laxative) 1 tab PO BID #0 tabs 02/01/22 [Rx Last Taken Unknown] thiamine HCl (vitamin B1) 100 mg tablet (Vitamin B-1) 100 mg PO BREAKFAST #0 tabs 02/01/22 [Rx Last Taken Unknown] denosumab 60 mg/mL subcutaneous syringe (Prolia) 60 mg subcut [id number] #1 mL 05/06/22 [Rx Last Taken Unknown] hydrocodone-acetaminophen 5-325mg 5mg-325mg 1 tab PO Q6H PRN PRN Pain 3 days #10 TABLETS 10/14/22 [Rx Last Taken Unknown] buspirone 5 mg tablet 5 mg PO BID 01/06/23 [History Last Taken Unknown] mirtazapine 7.5 mg tablet 7.5 mg PO QHS 01/06/23 [History Last Taken Unknown] montelukast 10 mg tablet 10 mg PO QHS 01/06/23 [History Last Taken Unknown] risperidone 0.5 mg tablet 0.5 mg PO QHS 01/06/23 [History Last Taken Unknown] Allergy/AdvReac Type Severity Reaction Status Date / Time bupropion HCl Allergy SHAKING Verified 02/07/23 16:07 [From Wellbutrin] quetiapine fumarate Allergy Unknown Verified 02/07/23 16:07 [From Seroquel] trazodone AdvReac SHAKING Verified 02/07/23 16:07 Family History Mother Cancer Breast cancer Hypertension Father Cancer Hypertension Other Anemia Anxiety Depression Osteoporosis Surgical History History of hip surgery History of intestinal surgery History of tonsillectomy Social History household members: none Smoking Status: Current every day smoker tobacco type: cigarettes Tobacco: How many years used: 50 alcohol intake: former year quit: 2019 substance use type: marijuana what type of physical activity do you participate in: none ROS ROS ED Constitutional Constitutional ED: Denies chills, fever(s) or sweats Eyes Eyes: Denies change in vision ENT ENT ED: Denies dysphagia or sore throat Cardiovascular Cardiovascular: Denies chest pain, leg edema, palpitations or racing heartbeat Respiratory/Chest Respiratory/Chest: Denies cough, dyspnea or dyspnea on exertion Gastrointestinal Gastrointestinal: Denies abdominal pain, diarrhea, nausea or vomiting Genitourinary Genitourinary ED: Denies dysuria, hematuria or urinary frequency Musculoskeletal Musculoskeletal: Denies back pain, extremity pain or neck pain Integumentary Denies rash or wounds Neurologic Neurologic: Denies headache(s), paresthesias or weakness EXAM Physical Exam Const Vital Signs: 03/18/23 06:52 03/18/23 07:46 03/18/23 09:27 Temperature 97.9 F Temperature Source Temporal Pulse Rate 88 74 Respiratory Rate 16 14 Respiratory Effort Normal Non-Labored Respiratory Pattern Normal Blood Pressure 134/108 H 148/95 H Blood Pressure Mean 116 112 Pulse Ox 94 94 Oxygen Delivery Method Room Air Room Air Positive well nourished and well developed General Appearance ED: well developed and NAD HEENT Reports moist mucous membranes normocephalic and atraumatic Eyes PERRL, EOMs intact bilaterally and conjunctivae normal General Eye ED: Yes normal appearance of both eyes Neck no lymphadenopathy and supple General: Negative for tenderness Chest Wall Chest: Negative for tenderness Resp normal respiratory effort and normal air movement Effort and Inspection: symmetric chest movement; Negative for respiratory distress Cardio regular rate, regular rhythm and no murmurs Peripheral Pulses: pulses 2+ throughout GI normal to inspection, nondistended, normoactive bowel sounds and non-tender Palpation: Negative for guarding or rebound tenderness present Back/Spine no CVA tenderness and no thoracic nor lumbar tenderness Extremity normal to inspection General Extremety ED: Negative for edema or tenderness General Extremity: Negative for edema Neuro oriented x3 and no sensory deficits noted Sensorium / Orientation: awake and alert Skin no rashes or lesions noted and no wounds MDM MDM MDM Narrative Medical decision making narrative: Interventions / MDM: Differential diagnosis: Elevated blood pressure Diagnosis considered but do not suspect: Infectious cause however workup negative. No clinical hypertensive emergency or findings on lab work or testing. My EKG interpretation: N/A Imaging independently reviewed and interpreted by myself: 2 view chest x-ray: No acute process. External documents reviewed: N/A Test considered but not ordered:N/A ED course: Blood pressure 160/99 during evaluation room. Reporting chills. No hypertensive emergency symptoms. Will check labs urine chest x-ray and COVID. 0850: Blood pressure 148/95 in the room. No intervention was required. Labs urine chest x-ray and COVID-negative. Stable creatinine 1.4. Patient be discharged back to facility for continued home medications. Re-evaluation: stable Disposition discussed with patient/family/significant other: Patient Case discussed with consulting clinician: N/A This note was generated with [employer] dictation software. It may contain incorrect words, spelling, and punctuation that were not noted in checking the note before signing. Lab Data Attestation: I reviewed the patient's lab results. Labs: Laboratory Results - last 24 hr 03/18/23 03/18/23 07:44 07:50 WBC 7.7 RBC 4.24 L Hgb 12.5 L Hct 39.2 L MCV 92.5 MCH 29.5 MCHC 31.9 L RDW Std Deviation 50.9 H RDW Coeff of Dariela 15.0 H Plt Count 251 MPV 9.1 Immature Gran % (Auto) 0.300 Neut % (Auto) 47.8 Lymph % (Auto) 33.1 [place]on % (Auto) 10.2 H Eos % (Auto) 7.7 H Baso % (Auto) 0.9 Absolute Neuts (auto) 3.7 Absolute Lymphs (auto) 2.55 Nucleated RBC % 0 Sodium 137 Potassium 4.0 Chloride 107 Carbon Dioxide 24.0 Anion Gap 6 BUN 8 Creatinine 1.36 H Estim Creat Clear Calc 39.57 Est GFR (MDRD) Af Amer 65 Est GFR (MDRD) Non-Af 54 L BUN/Creatinine Ratio 5.9 L Glucose 97 Calcium 9.5 Urine Color Straw Urine Clarity Clear Urine pH 6.0 Ur Specific [place] 1.010 Urine Protein Negative Urine Glucose (UA) Normal Urine Ketones Negative Urine Occult Blood Negative Urine Nitrite Negative Urine Bilirubin Negative Urine Urobilinogen Normal Ur Leukocyte Esterase Negative Urine RBC 0 SEEN Urine WBC 0 SEEN Ur Squamous Epith Cells 0 SEEN Urine Bacteria 0 SEEN Urine Mucus 0 SEEN Radiography Diagnostic Testing: Clinical Impression(s) from Imaging Studies Chest X-Ray 03/18/23 07:18 IMPRESSION: Bibasilar atelectasis. Electronically Signed: Melly Nguyen MD at 8:27 EST , Discharge Plan Triage Chief Complaint: Hypertension ED Provider: Wilfrido Bush Dx/Rx/DC Orders Clinical Impression: Chills, CKD (chronic kidney disease), Elevated blood pressure reading in office with diagnosis of hypertension Instructions: Controlling High Blood Pressure Prescriptions: No Action fluoxetine 20 mg capsule 20 mg PO DAILY Qty: 90 2RF lamotrigine 150 mg tablet 150 mg PO BID Qty: 60 5RF ondansetron HCl 4 mg tablet 4 mg PO TID PRN (Reason: nausea and vomiting) Qty: 90 5RF lisinopril 10 mg tablet 10 mg PO DAILY Qty: 90 3RF amlodipine 5 mg tablet 5 mg PO DAILY Qty: 90 3RF buspirone 5 mg tablet 5 mg PO BID mirtazapine 7.5 mg tablet 7.5 mg PO QHS montelukast 10 mg tablet 10 mg PO QHS risperidone 0.5 mg tablet 0.5 mg PO QHS polyethylene glycol 3350 [Miralax] 17 gram/dose powder 17 g PO DAILY PRN (Reason: constipation) Qty: 119 0RF potassium chloride 20 mEq tablet extended release 40 meq PO DAILY 2 Days Qty: 4 0RF cyanocobalamin (vitamin B-12) 500 mcg Tablet 1,000 mcg PO BREAKFAST Qty: 0 0RF folic acid 1 mg Tablet 1 mg PO BREAKFAST Qty: 0 0RF melatonin 10 mg Tablet, Sublingual 10 mg PO QHS Qty: 0 0RF polyethylene glycol 3350 17 gram Powder In Packet 34 g PO DAILY Qty: 0 0RF sennosides-docusate sodium [Stool Softener-Stimulant Laxat] 8.6-50 mg Tablet 1 tab PO BID Qty: 0 0RF thiamine HCl (vitamin B1) [Vitamin B-1] 100 mg Tablet 100 mg PO BREAKFAST Qty: 0 0RF levofloxacin 750 mg tablet 750 mg PO Q48H Qty: 3 0RF Rx Instructions: Start 02/03/2022 hydrocodone-acetaminophen [hydrocodone-acetaminophen] 5-325 mg tablet 1 tab PO Q6H PRN PRN (Reason: Pain) 3 Days Qty: 10 0RF omeprazole 40 mg capsule,delayed release(DR/EC) 40 mg PO DAILY Qty: 90 3RF tamsulosin 0.4 mg capsule 0.4 mg PO DAILY@1830 Qty: 180 3RF memantine 10 mg tablet See Rx Instructions .ROUTE .COMPLEX Qty: 56 2RF Dose Instruction: TAKE 1 TABLET BY MOUTH TWICE A DAY Rx Instructions: TAKE 1 TABLET BY MOUTH TWICE A DAY Prolia 60 mg/mL syringe 60 mg subcut [id number] Qty: 1 0RF Primary Care Provider: Shiva Zamarripa Referrals: Care Physician,No Primary [Non-Staff] - Activity Restrictions/Additional Instructions: Blood pressure improved without any treatment in the ED. Last check 148/95. Continue home medications. Your creatinine 1.4 stable from previous labs. Urine test chest x-ray COVID test negative. Follow-up with your doctor. Disposition Disposition: Home, Self Care Discharge Date/Time: 03/18/23 09:40
[2023-03-18 07:48] LABS: Bacteria 0 SEEN /hpf (None Seen); Mucous, Urine 0 SEEN /hpf (<or=2+); Red Blood Cells-Urine 0 SEEN /hpf (0-5); Squamous Epithelial Cells - UA 0 SEEN /hpf (0-5); White Blood Cells 0 SEEN /hpf (0-5)
[2023-03-18 08:06] LABS: Absolute Lymphocyte Count 2.55 X10^3/uL (0.83-4.51); Absolute Neutrophil Count 3.7 X10^3/uL (2.0-7.7); Basophil# 0.07 X10^3/uL; Basophil% 0.9 % (0-1); Eosinophil# 0.59 X10^3/uL; Eosinophils% 7.7 % (0-5); Hematocrit 39.2 % (40-54); Hemoglobin 12.5 g/dL (13.0-16.5); Lymphocyte # 2.55 X10^3/ul (0.83-4.51); Lymphocyte % 33.1 % (19-41); Mean Corp Hgb Conc 31.9 g/dL (32-36); Mean Corpuscular Hgb 29.5 pg (27.0-32.0); Mean Corpuscular Volume 92.5 fL (80-94); Mean Platelet Vol. 9.1 fl (6.2-12.0); Monocyte# 0.79 X10^3/uL; Monocyte% 10.2 % (0-10); NRBC Flagged by Analyzer 0 % (0-5); Neutrophil # 3.69 X10^3/uL (2.7-7.7); Neutrophil % 47.8 % (47-70); Platelet Count 251 K/mm3 (150-450); RBC Distribution Width SD 50.9 fl (35.1-43.9); Red Blood Count 4.24 M/mm3 (4.6-6.2); White Blood Count 7.7 K/mm3 (4.4-11.0)
[2023-03-18 08:08] LABS: Color, Urine Straw (Yellow); Glucose, Dipstick Normal (Normal); Ketone-Dipstick Negative (Negative); Leukocyte Esterase-Dipstick Negative /ul (Negative); Nitrite-Dipstick Negative (Negative); Occult Blood-Urine Negative /ul (Negative); Protein-Dipstick Negative (Negative); Urine Bilirubin Dipstick Negative (Negative); Urine Clarity Clear (Clear); Urine Urobilinogen Normal (Normal)
[2023-03-18 08:39] LABS: BUN 8 mg/dL (7-18); BUN/Creat Ratio 5.9 RATIO (10-20); Calcium,Total 9.5 mg/dL (8.5-10.1); Chloride 107 mmol/L (98-107); Creatinine, Serum 1.36 mg/dL (0.70-1.30); EST Glomerular Filtration Rate 54 mL/min (>60); Est Glom Filt Rate - Afr Amer 65 mL/min (>60); Estimated Creatinine Clearance 39.57 ml/min; Glucose 97 mg/dL (74-106); Sodium Level 137 mmol/L (136-145)
[2023-03-18 08:42] LABS: Anion Gap 6 (5-15)
[2023-03-18 09:27] VITALS: BP 148/95; PULSE 74; RESP 14; O2SAT 94
== END 2023-03-18 09:40 | disposition home or self-care (01) ==
PROVIDERS: Emergency Provider Emergency Medicine; PCP Family Medicine; Visit Provider Emergency Medicine
DX: R68.83 Chills (without fever) (principal); I12.9 Hypertensive chronic kidney disease with stage 1 through stage 4 chronic kidney disease, or unspecified chronic kidney disease; N18.9 Chronic kidney disease, unspecified; F17.210 Nicotine dependence, cigarettes, uncomplicated
CPT/HCPCS: 71046; 80048; 81001; 85025; 87428; 99285; A4216

== ENCOUNTER 2023-11-11 20:49 | Inpatient (IN) | payer MEDICARE, MEDICAID, SELFPAY ==
[2023-11-11] VITALS (8 sets, daily range): BP systolic 115–138; BP diastolic 74–95; PULSE 62–81; RESP 14–19; TEMP 36–36.8; O2SAT 86–94; BMI 23.5
--- NOTE | 2023-11-11 21:17 | EKG12_ITS ---
Test Reason : Blood Pressure : / mmHG Vent. Rate : 070 BPM Atrial Rate : 070 BPM P-R Int : 236 ms QRS Dur : 080 ms QT Int : 372 ms P-R-T Axes : 087 -16 008 degrees QTc Int : 401 ms Sinus rhythm with 1st degree A-V block Otherwise normal ECG Confirmed by GISSEL SPRINGER, AUBREY ([id number]), primer expeditor and drier CITLALY RUIZ ([id number]) on 11/17/2023 1:46:32 PM Referred By: Confirmed By:JERRI CHAUHAN MD
--- NOTE | 2023-11-11 21:19 | EX.ED.DYSGE1 ---
HPI History of Present Illness Chief Complaint: General Illness Detail of Chief Complaint: Not feeling well for 2 weeks. Informant: patient Onset/Context/Timing Onset: Weeks Context: Gradual Onset Timing: Continuous Current Severity: Mild Maximum Severity: Mild Narrative Narrative: 77-year-old male history of COPD, CKD, hypertension prior stroke. States he just has not felt well for the last several weeks. Has been more fatigued. Decreased appetite. Has had some intermittent nausea and vomiting but none today. He has had mildly loose stools but no melena. He denies any headache. He denies any chest pain. He denies being short of breath but his pulse ox was 86%. He denies any chest pain or leg pain or swelling. Prior similar symptoms: Yes Recent Illness/Hospitalization: No PFSH PFS Medical History Marijuana smoker, episodic Epilepsy Muscle wasting and atrophy, not elsewhere classified, back, unspecified level Insomnia Dysphagia Wernickes encephalopathy BPH (benign prostatic hyperplasia) COPD (chronic obstructive pulmonary disease) CKD (chronic kidney disease) Severe protein-calorie malnutrition Flu vaccine need Cerumen impaction Nausea vomiting and diarrhea Change in mental status Anxiety Vitamin D deficiency History of alcohol abuse History of fracture of clavicle History of kidney stones IBS (irritable bowel syndrome) GERD (gastroesophageal reflux disease) Depression Anemia Hypertension Seizure disorder Home Medications ?Medication ?Instructions ?Recorded ?Last Taken ?Type fluoxetine 20 mg capsule 20 mg PO DAILY DEPRESSION #90 caps 08/07/20 Unknown Rx lisinopril 10 mg tablet 10 mg PO DAILY HTN #90 tabs 04/30/21 Unknown Rx lamotrigine 150 mg tablet 150 mg PO BID #60 tabs 07/15/21 Unknown Rx ondansetron HCl 4 mg tablet 4 mg PO TID PRN nausea and 07/15/21 Unknown Rx vomiting #90 tabs omeprazole 40 mg capsule,delayed 40 mg PO DAILY GERD #90 caps 07/19/21 Unknown Rx release tamsulosin 0.4 mg capsule 0.4 mg PO DAILY@1830 prostate #180 08/16/21 Unknown Rx caps amlodipine 5 mg tablet 5 mg PO DAILY BP #90 tabs 12/03/21 Unknown Rx polyethylene glycol 3350 17 17 g PO DAILY PRN constipation 01/23/22 Unknown Rx gram/dose oral powder (Miralax) #119 grams potassium chloride 20 mEq 40 meq (2 x 20 mEq) PO DAILY 2 01/23/22 Unknown Rx tablet,extended release days #4 tabs memantine 10 mg tablet See Rx Instructions .Route 01/31/22 Unknown Rx .COMPLEX #56 tabs cyanocobalamin (vitamin B-12) 500 1,000 mcg (2 x 500 mcg) PO 02/01/22 Unknown Rx mcg tablet BREAKFAST #0 tabs folic acid 1 mg tablet 1 mg PO BREAKFAST #0 tabs 02/01/22 Unknown Rx levofloxacin 750 mg tablet 750 mg PO Q48H #3 tabs 02/01/22 Unknown Rx melatonin 10 mg sublingual tablet 10 mg PO QHS #0 tabs 02/01/22 Unknown Rx polyethylene glycol 3350 17 gram 34 g PO DAILY #0 ea 02/01/22 Unknown Rx oral powder packet sennosides 8.6 mg-docusate sodium 1 tab PO BID #0 tabs 02/01/22 Unknown Rx 50 mg tablet (Stool Softener-Stimulant Laxative) thiamine HCl (vitamin B1) 100 mg 100 mg PO BREAKFAST #0 tabs 02/01/22 Unknown Rx tablet (Vitamin B-1) denosumab 60 mg/mL subcutaneous 60 mg subcut [id number] #1 mL 05/06/22 Unknown Rx syringe (Prolia) hydrocodone-acetaminophen 5-325mg 1 tab PO Q6H PRN PRN Pain 3 days 10/14/22 Unknown Rx 5mg-325mg #10 TABLETS buspirone 5 mg tablet 5 mg PO BID 01/06/23 Unknown History mirtazapine 7.5 mg tablet 7.5 mg PO QHS 01/06/23 Unknown History montelukast 10 mg tablet 10 mg PO QHS 01/06/23 Unknown History risperidone 0.5 mg tablet 0.5 mg PO QHS 01/06/23 Unknown History Allergy/AdvReac Type Severity Reaction Status Date / Time bupropion HCl (From Allergy SHAKING Verified 11/11/23 21:07 Wellbutrin) quetiapine fumarate (From Allergy Unknown Verified 11/11/23 21:07 Seroquel) trazodone AdvReac SHAKING Verified 11/11/23 21:07 Family History Mother Cancer Breast cancer Hypertension Father Cancer Hypertension Other Anemia Anxiety Depression Osteoporosis Surgical History History of hip surgery History of intestinal surgery History of tonsillectomy Social History household members: none Smoking Status: Former smoker Tobacco: How many years used: 50 alcohol intake: former year quit: 2019 substance use type: marijuana what type of physical activity do you participate in: none ROS ROS ED ROS Narrative Generalized illness. Weakness. Nausea and vomiting. Loose stools. Denies dysuria. Denies melena. Denies chest pain. Review of Systems ROS Unobtainable: Denies due to encephalopathy Constitutional Constitutional ED: Denies chills or fever(s) Eyes Eyes: Denies blurry vision ENT ENT ED: Denies ear pain Cardiovascular Cardiovascular: Denies chest pain Respiratory/Chest Respiratory/Chest: Denies cough or dyspnea Gastrointestinal Gastrointestinal: Reports diarrhea, nausea and vomiting; Denies abdominal pain, constipation or melena Genitourinary Genitourinary ED: Denies dysuria or hematuria Musculoskeletal Musculoskeletal: Denies arthralgias Integumentary Denies abscess Neurologic Neurologic: Denies headache(s) Psychiatric Psychiatric: Denies anxiety or depression Endocrine Endocrinology: Denies cold intolerance Hematologic/Lymphatic Hematologic/Lymphatic: Reports none Allergic/Immunologic Allergic/Immunologic ED: Denies mouth swelling, tongue swelling or urticaria EXAM Physical Exam Narrative Exam Narrative: Says [id number] male vital signs stable initial pulse ox 86% on 2 L he is 91. He is in no distress. He sitting upright in bed. There is no family here with him. H EENT exam pupils round react to light. Dry mucous membranes. Neck nontender no JVD. No lymphadenopathy. Lungs clear to auscultation bilaterally. No rales, rhonchi or wheezing. Equal symmetrical. Heart regular rhythm rate about 80 no murmur. Chest wall ribs nontender. Abdomen soft nontender. Nondistended. Moving all 4 extremities. Nontender no edema. Back nontender. He is awake and alert. He is answering questions and following commands. Const Vital Signs: 11/11/23 20:51 11/11/23 20:51 11/11/23 20:56 Temperature 96.8 F L 98.0 F Temperature Source Temporal Oral Pulse Rate 81 79 Respiratory Rate 19 H 19 H Respiratory Effort Respiratory Pattern Blood Pressure 138/83 H 138/83 H Blood Pressure Mean 101 101 Pulse Ox 86 91 91 Oxygen Delivery Method Room Air Nasal Cannula Nasal Cannula Oxygen Flow Rate (L/min) 2 2 11/11/23 20:56 11/11/23 21:46 11/11/23 21:56 Temperature 98.2 F Temperature Source Oral Pulse Rate 62 Respiratory Rate 14 Respiratory Effort Labored Respiratory Pattern Tachypnea Blood Pressure 134/95 H Blood Pressure Mean 108 Pulse Ox 92 93 Oxygen Delivery Method Nasal Cannula Nasal Cannula Oxygen Flow Rate (L/min) 2 2 11/11/23 22:00 11/11/23 22:41 Temperature 98.2 F Temperature Source Oral Pulse Rate 62 74 Respiratory Rate 14 16 Respiratory Effort Respiratory Pattern Blood Pressure 134/95 H Blood Pressure Mean 108 Pulse Ox Oxygen Delivery Method Oxygen Flow Rate (L/min) Positive well nourished and well developed; Negative for cachectic, contractures or unkempt General Appearance ED: well developed and NAD; Negative for unkempt, cachectic, contractures, cyanotic, diaphoretic or pallor Nutritional Appearance: Negative for cachectic HEENT Reports dry mucous membranes; Denies moist mucous membranes Negative for trauma or tenderness Mouth ED: Yes dry mucous membranes Mouth: dry mucous membranes Eyes PERRL and EOMs intact bilaterally Neck no lymphadenopathy, supple and no JVD General: Negative for tenderness Lymph Lymphatic: Negative for other Chest Wall inspection of chest normal and palpation of chest normal Resp normal respiratory effort and clear to auscultation bilaterally Effort and Inspection: Negative for retractions Auscultation: Negative for rales, rhonchi, wheezes or diminished lung sounds Cardio regular rate, regular rhythm, S1 normal heart sound, S2 normal heart sound and no murmurs GI normal to inspection, nondistended, normoactive bowel sounds, non-tender, non-distended and no masses Inspection: Negative for abdominal distention Palpation: soft; Negative for tender, guarding or rebound tenderness present Back/Spine no CVA tenderness Extremity normal to inspection General Extremety ED: Negative for edema or tenderness General Extremity: Negative for edema Neuro oriented x3 and CN's II-XII intact bilaterally Sensorium / Orientation: alert Motor Exam: strength 5/5 throughout Psych mental status grossly normal Appearance: Negative for unkempt Attitude: No agitated Mood & Affect: Negative for depressed, anxious or tearful Skin no rashes or lesions noted and no wounds General Skin Exam: Negative for jaundice or pallor MDM MDM MDM Narrative Medical decision making narrative: 77-year-old male states he has been feeling well for several weeks. Clinically looks dehydrated received IV fluids. DuoNeb aerosol. Chest x-ray and labs. P.o. prednisone. Repeat exam at 10:40 PM. No significant change. On 2 L he is still borderline hypoxic at like 90. Is received a DuoNeb aerosol and currently receiving p.o. prednisone. This may all be a COPD flare. There is no obvious pneumonia on his chest x-ray. His COVID and flu and RSV have been negative. Given he is hypoxic and in assisted living and is not on oxygen I will speak to the hospitalist about admitting him overnight. I do not think he needs a CTA he has no history or risk for PE. He will also be treated with IV fluids. History & Record Review Discussion w/independent historian: Patient Additional record(s) reviewed:: Prior inpatient record, Prior outpatient record, Prior ED visit and Prior labs Lab Data Attestation: I reviewed the patient's lab results. Lab results narrative: CBC is consistent with baseline prior labs. White count 7.3. H&H 12.1 and 38. He has a chronic anemia. Platelets 305. Electrolytes show gap 7. BUN 15 creatinine 2.3 patient has chronic kidney disease consistent with prior creatinines. Glucose 113. Liver enzymes unremarkable. COVID, flu and RSV negative. Labs: Laboratory Results - last 24 hr 11/11/23 21:35 WBC 7.2 RBC 4.14 L Hgb 12.1 L Hct 38.1 L MCV 92.0 MCH 29.2 MCHC 31.8 L RDW Std Deviation 52.8 H RDW Coeff of Dariela 15.7 H Plt Count 305 MPV 9.3 Immature Gran % (Auto) 0.400 Neut % (Auto) 60.9 Lymph % (Auto) 24.7 [place] % (Auto) 9.4 Eos % (Auto) 3.9 Baso % (Auto) 0.7 Absolute Neuts (auto) 4.4 Absolute Lymphs (auto) 1.78 Nucleated RBC % 0 Sodium 137 Potassium 4.5 Chloride 104 Carbon Dioxide 26.0 Anion Gap 7 BUN 15 Creatinine 2.30 H Est GFR (MDRD) Af Amer 36 L Est GFR (MDRD) Non-Af 29 L BUN/Creatinine Ratio 6.5 L Glucose 113 H Calcium 9.6 Total Bilirubin 0.50 AST 11 L ALT 11 L Alkaline Phosphatase 83 Troponin I High Sens 7 Total Protein 8.0 Albumin 3.7 Globulin 4.3 H Albumin/Globulin Ratio 0.9 Radiography Chest X-Ray - ED: 1 View, Read by ED Physician, Heart, Mediastinum, Bony Structures, No Acute Disease and Chronic Changes Diagnostic Testing: Chest x-ray portable, single view, interpreted by myself shows chronic changes. Prior left clavicle fracture repair. He has either atelectasis in his right base. Rhythm Strip Rhythm Strip: Sinus Rhythm Rate: 70 Ectopy: None EKG Initial EKG: Attestation: I personally reviewed and interpreted this EKG as follows: Interpretation: Sinus Rhythm and No Acute Injury Pattern Comments: Normal sinus rhythm rate of 70 no acute signs of IL or ischemia. First-degree AV block. Oval to 36. Discharge Plan Dx/Rx/DC Orders Clinical Impression: Generalized weakness, Hypoxia, Chronic kidney disease, Nausea & vomiting, History of COPD, Adult failure to thrive, Acute dehydration Disposition Disposition: Acute Care Hospital [facility]
[2023-11-11] MEDS: 0.9% Normal Saline (500mL Bag) 500 ML 1000 ML IV (21:44)
--- NOTE | 2023-11-11 21:50 | RAD_ITS ---
INDICATION: hypoxia EXAMINATION/TECHNIQUE: X-RAY - XR Chest 1 View COMPARISON: 03/18/2023. FINDINGS: LINES/DEVICES: None. LUNGS: No consolidation or evidence of an effusion. No evidence of edema or a pneumothorax. Bibasilar atelectasis versus scarring. MEDIASTINUM AND CARDIOVASCULAR STRUCTURES: Cardiac silhouette is normal in size and contour. Mediastinum is unremarkable. BONES AND SOFT TISSUES: No acute abnormality. RAD/Chest 1 View (Portable) IMPRESSION: No evidence of acute cardiopulmonary disease. Electronically Signed: Rickey Drummond DO at 22:21 EDT ,
[2023-11-11 21:52] LABS: Absolute Lymphocyte Count 1.78 X10^3/uL (0.83-4.51); Absolute Neutrophil Count 4.4 X10^3/uL (2.0-7.7); Basophil# 0.05 X10^3/uL; Basophil% 0.7 % (0-1); Eosinophil# 0.28 X10^3/uL; Eosinophils% 3.9 % (0-5); Hematocrit 38.1 % (40-54); Hemoglobin 12.1 g/dL (13.0-16.5); Lymphocyte # 1.78 X10^3/ul (0.83-4.51); Lymphocyte % 24.7 % (19-41); Mean Corp Hgb Conc 31.8 g/dL (32-36); Mean Corpuscular Hgb 29.2 pg (27.0-32.0); Mean Platelet Vol. 9.3 fl (6.2-12.0); Monocyte# 0.68 X10^3/uL; Monocyte% 9.4 % (0-10); NRBC Flagged by Analyzer 0 % (0-5); Neutrophil # 4.38 X10^3/uL (2.7-7.7); Neutrophil % 60.9 % (47-70); Platelet Count 305 K/mm3 (150-450); RBC Distribution Width CV 15.7 % (11.6-14.6); RBC Distribution Width SD 52.8 fl (35.1-43.9); Red Blood Count 4.14 M/mm3 (4.6-6.2); White Blood Count 7.2 K/mm3 (4.4-11.0)
[2023-11-11 22:16] LABS: ALB/GLOB Ratio 0.9 RATIO (0.9-2.4); AST(SGOT) 11 U/L (15-37); Alanine Aminotransfer ALT/SGPT 11 U/L (16-61); Albumin, Serum 3.7 g/dL (3.2-5.0); Alkaline Phosphatase 83 U/L (45-117); Anion Gap 7 (5-15); BUN 15 mg/dL (7-18); BUN/Creat Ratio 6.5 RATIO (10-20); Calcium,Total 9.6 mg/dL (8.5-10.1); Chloride 104 mmol/L (98-107); EST Glomerular Filtration Rate 29 mL/min (>60); Est Glom Filt Rate - Afr Amer 36 mL/min (>60); Globulin 4.3 g/dL (2.2-4.2); Glucose 113 mg/dL (74-106); Potassium 4.5 mmol/L (3.5-5.1); Sodium Level 137 mmol/L (136-145); Troponin-I HS 7 pg/mL (3.0-78.0)
--- NOTE | 2023-11-11 22:45 | PCM.HP.STD ---
HPI - General General Date of Admission: 11/11/23 Date of Service: 11/11/23 Chief Complaint: Fatigue and decreased appetite HPI Narrative ANA RIVERA, is a 77 M who presented to [facility] ED on 11/07/2023 with worsening fatigue and decreased appetite. Saw patient at bedside in the ED. Patient was chronically ill-appearing and mildly fatigued but otherwise sitting up comfortably in bed, conversing normally, in no acute distress. He is breathing comfortably on 2 L nasal cannula, notably is not on home oxygen. Patient lives in assisted living. Does have a history of COPD but is not on any scheduled home inhalers. States that he has generally has not felt well for the past several weeks. Has felt more fatigued with decreased appetite and has had some intermittent nausea with vomiting. Denies any chest pain or shortness of breath. Denies any fevers or chills over that time. Denies any changes to his medication regimen. On arrival to the ED, was found to be mildly hypoxic with oxygen saturation in the mid 80s. Quickly improved on low-flow nasal cannula and patient did report mildly improved energy. Was given a DuoNeb treatment with concern for COPD exacerbation but patient reports not feeling any different after the breathing treatment. Currently denies any shortness of breath or wheezing. Denies any recent pneumonia type symptoms. Patient otherwise denies any acute concerns. Vitals in ED notable for oxygen saturations in the low 90s on 2 L nasal cannula, otherwise unremarkable. Labs notable for BUN 15, creatinine 2.30 (baseline appears to be around 1.3-1.6), otherwise unremarkable. Chest x-ray showed hyperinflation, was otherwise unremarkable. EKG showed normal sinus rhythm, no ST changes. [facility] Medical History Marijuana smoker, episodic Epilepsy Muscle wasting and atrophy, not elsewhere classified, back, unspecified level Insomnia Dysphagia Wernickes encephalopathy BPH (benign prostatic hyperplasia) COPD (chronic obstructive pulmonary disease) CKD (chronic kidney disease) Severe protein-calorie malnutrition Flu vaccine need Cerumen impaction Nausea vomiting and diarrhea Change in mental status Anxiety Vitamin D deficiency History of alcohol abuse History of fracture of clavicle History of kidney stones IBS (irritable bowel syndrome) GERD (gastroesophageal reflux disease) Depression Anemia Hypertension Seizure disorder Home Medications ?Medication ?Instructions ?Recorded ?Last Taken ?Type fluoxetine 20 mg capsule 20 mg PO DAILY DEPRESSION #90 caps 08/07/20 Unknown Rx lisinopril 10 mg tablet 10 mg PO DAILY HTN #90 tabs 04/30/21 Unknown Rx lamotrigine 150 mg tablet 150 mg PO BID #60 tabs 07/15/21 Unknown Rx ondansetron HCl 4 mg tablet 4 mg PO TID PRN nausea and 07/15/21 Unknown Rx vomiting #90 tabs omeprazole 40 mg capsule,delayed 40 mg PO DAILY GERD #90 caps 07/19/21 Unknown Rx release tamsulosin 0.4 mg capsule 0.4 mg PO DAILY@1830 prostate #180 08/16/21 Unknown Rx caps amlodipine 5 mg tablet 5 mg PO DAILY BP #90 tabs 12/03/21 Unknown Rx polyethylene glycol 3350 17 17 g PO DAILY PRN constipation 01/23/22 Unknown Rx gram/dose oral powder (Miralax) #119 grams potassium chloride 20 mEq 40 meq (2 x 20 mEq) PO DAILY 2 01/23/22 Unknown Rx tablet,extended release days #4 tabs memantine 10 mg tablet See Rx Instructions .Route 01/31/22 Unknown Rx .COMPLEX #56 tabs cyanocobalamin (vitamin B-12) 500 1,000 mcg (2 x 500 mcg) PO 02/01/22 Unknown Rx mcg tablet BREAKFAST #0 tabs folic acid 1 mg tablet 1 mg PO BREAKFAST #0 tabs 02/01/22 Unknown Rx levofloxacin 750 mg tablet 750 mg PO Q48H #3 tabs 02/01/22 Unknown Rx melatonin 10 mg sublingual tablet 10 mg PO QHS #0 tabs 02/01/22 Unknown Rx polyethylene glycol 3350 17 gram 34 g PO DAILY #0 ea 02/01/22 Unknown Rx oral powder packet sennosides 8.6 mg-docusate sodium 1 tab PO BID #0 tabs 02/01/22 Unknown Rx 50 mg tablet (Stool Softener-Stimulant Laxative) thiamine HCl (vitamin B1) 100 mg 100 mg PO BREAKFAST #0 tabs 02/01/22 Unknown Rx tablet (Vitamin B-1) denosumab 60 mg/mL subcutaneous 60 mg subcut A3TPCHER #1 mL 05/06/22 Unknown Rx syringe (Prolia) hydrocodone-acetaminophen 5-325mg 1 tab PO Q6H PRN PRN Pain 3 days 10/14/22 Unknown Rx 5mg-325mg #10 TABLETS buspirone 5 mg tablet 5 mg PO BID 01/06/23 Unknown History mirtazapine 7.5 mg tablet 7.5 mg PO QHS 01/06/23 Unknown History montelukast 10 mg tablet 10 mg PO QHS 01/06/23 Unknown History risperidone 0.5 mg tablet 0.5 mg PO QHS 01/06/23 Unknown History Allergy/AdvReac Type Severity Reaction Status Date / Time bupropion HCl (From Allergy SHAKING Verified 11/11/23 21:07 Wellbutrin) quetiapine fumarate (From Allergy Unknown Verified 11/11/23 21:07 Seroquel) trazodone AdvReac SHAKING Verified 11/11/23 21:07 Family History Mother Cancer Breast cancer Hypertension Father Cancer Hypertension Other Anemia Anxiety Depression Osteoporosis Surgical History History of hip surgery History of intestinal surgery History of tonsillectomy Social History household members: none Smoking Status: Former smoker Tobacco: How many years used: 50 alcohol intake: former year quit: 2019 substance use type: marijuana what type of physical activity do you participate in: none ROS Constitutional Constitutional: Reports fatigue, malaise and weakness; Denies chills or fever(s) Eyes Eyes: Denies change in vision Cardiovascular Cardiovascular: Denies chest pain, dyspnea on exertion, edema, palpitations, rapid heart rate or syncope Respiratory/Chest Respiratory/Chest: Denies cough, productive cough, shortness of breath at rest, shortness of breath with exertion or wheezing Gastrointestinal Gastrointestinal: Reports nausea and vomiting; Denies abdominal pain, constipation or diarrhea Genitourinary Genitourinary: Denies dysuria Musculoskeletal Musculoskeletal: Denies arthralgias or myalgias Neurologic Neurologic: Denies dizziness, focal weakness or headache(s) Vital Signs Vital Signs Vital Signs: 11/11/23 20:51 11/11/23 20:51 11/11/23 20:56 Temperature 96.8 F L 98.0 F Temperature Source Temporal Oral Pulse Rate 81 79 Respiratory Rate 19 H 19 H Respiratory Effort Respiratory Pattern Blood Pressure 138/83 H 138/83 H Blood Pressure Mean 101 101 Pulse Ox 86 91 91 Oxygen Delivery Method Room Air Nasal Cannula Nasal Cannula Oxygen Flow Rate (L/min) 2 2 11/11/23 20:56 11/11/23 21:46 11/11/23 21:56 Temperature 98.2 F Temperature Source Oral Pulse Rate 62 Respiratory Rate 14 Respiratory Effort Labored Respiratory Pattern Tachypnea Blood Pressure 134/95 H Blood Pressure Mean 108 Pulse Ox 92 93 Oxygen Delivery Method Nasal Cannula Nasal Cannula Oxygen Flow Rate (L/min) 2 2 11/11/23 22:00 11/11/23 22:41 Temperature 98.2 F Temperature Source Oral Pulse Rate 62 74 Respiratory Rate 14 16 Respiratory Effort Respiratory Pattern Blood Pressure 134/95 H Blood Pressure Mean 108 Pulse Ox Oxygen Delivery Method Oxygen Flow Rate (L/min) Physical Exam Const alert, oriented x3 and no apparent distress Constitutional Narrative: Elderly male, chronically ill-appearing, mildly fatigued appearing, otherwise sitting up comfortably in bed, conversing normally, no acute distress. General Appearance: cooperative and comfortable HEENT normocephalic, head/scalp atraumatic, hearing grossly normal bilaterally and nasal mucous membranes and turbinates normal HEENT Narrative: Dry mucous membranes. Eyes PERRL, EOMs intact bilaterally and conjunctivae normal Neck full ROM Chest inspection of chest normal Resp normal respiratory effort and no use of accessory muscles Resp Narrative: Diminished breath sounds bilaterally throughout. No wheezing or crackles noted. Breathing comfortably on 2 L nasal cannula at rest. Cardio regular rate, regular rhythm, no murmurs and peripheral pulses 2+ throughout GI normal to inspection, nondistended, normoactive bowel sounds, soft to palpation, non-tender and non-distended Back/Spine normal ROM Extremity normal to inspection, full ROM and no pedal edema Skin no rashes or lesions noted Neuro moves all extremities and no focal motor deficits Speech: speech normal Psych mental status grossly normal Results Lab / Micro Data 11/11/23 21:35 11/11/23 21:35 Labs: Laboratory Results - last 24 hr 11/11/23 21:35: WBC 7.2, RBC 4.14 L, Hgb 12.1 L, Hct 38.1 L, MCV 92.0, MCH 29.2, MCHC 31.8 L, RDW Std Deviation 52.8 H, RDW Coeff of Dariela 15.7 H, Plt Count 305, MPV 9.3, Immature Gran % (Auto) 0.400, Neut % (Auto) 60.9, Lymph % (Auto) 24.7, [place] % (Auto) 9.4, Eos % (Auto) 3.9, Baso % (Auto) 0.7, Absolute Neuts (auto) 4.4, Absolute Lymphs (auto) 1.78, Nucleated RBC % 0, Sodium 137, Potassium 4.5, Chloride 104, Carbon Dioxide 26.0, Anion Gap 7, BUN 15, Creatinine 2.30 H, Est GFR (MDRD) Af Amer 36 L, Est GFR (MDRD) Non-Af 29 L, BUN/Creatinine Ratio 6.5 L, Glucose 113 H, Calcium 9.6, Total Bilirubin 0.50, AST 11 L, ALT 11 L, Alkaline Phosphatase 83, Troponin I High Sens 7, Total Protein 8.0, Albumin 3.7, Globulin 4.3 H, Albumin/Globulin Ratio 0.9 Micro: Microbiology 11/11/23 21:37 Mucosa - Nose SARS-CoV-2, Influenza & RSV (PCR) - Final Rhythm Strip Rhythm Strip: Sinus Rhythm Rate: 70 Ectopy: None Assessment & Plan Assessment/Plan (1) Hypoxia: (2) History of COPD: (3) ANASTACIO (acute kidney injury): (4) CKD (chronic kidney disease): (5) Acute dehydration: (6) Adult failure to thrive: PLAN: Plan Patient is a 77-year-old male who presented [facility] ED on 11/11/2023 from assisted living for worsening fatigue. 1. Suspected chronic hypoxia in setting of COPD ? [facility]. Suspect mild hypoxia on admit is worsening chronic changes rather than acute in nature. No wheezing on admit, hemodynamically stable, afebrile, chest x-ray normal; no concern for acute COPD exacerbation or pneumonia. No home inhalers listed on home medication list for unclear reason; is on home montelukast, will continue this. Will start patient on DuoNebs as needed and can consider starting patient on a long-acting inhaler. Recommend outpatient pulmonology follow-up after discharge. 2. ANASTACIO versus worsening CKD ? Creatinine 2.30 on admit, BUN only 15. Last creatinine values were 1.36 in February 2023 and 1.51 in January 2023. Suspect patient may have mild ANASTACIO due to dehydration currently but also suspect progression of underlying CKD. Given gentle IV fluid resuscitation on admit. Monitor daily BMP and urine output. 3. Acute on chronic debility ? PT/OT/case management consulted. Patient lives in assisted living but feels weak in this baseline currently, may require SNF placement on discharge. 4. Suspected malnutrition ? Nutrition consulted. Chronic medical conditions: ? Anxiety/depression/insomnia: Stable. Continue home BuSpar, fluoxetine, melatonin at night, risperidone at night and clonazepam twice daily as needed. ? Seizure disorder: Continue home lamotrigine. ? GERD: Continue home PPI. ? BPH with obstructive symptoms: Continue home Flomax. ? History of alcohol abuse with reported Warnicke's encephalopathy, cognitive impairment: Continue home memantine, folate and thiamine. ? Hypertension: Continue home amlodipine. Holding home lisinopril given concern for ANASTACIO as noted above. ? Osteoporosis: Continue denosumab injections in outpatient setting. ? Chronic mild anemia: Hemoglobin 12.1 on admit, at baseline. DVT prophylaxis: Heparin subcu CODE STATUS: DNR CCA, DNI Expected disposition: TBD Total clinical time spent by myself addressing the patient's medical issues, reviewing all the data, and collaborating with patient's care team: 75 minutes. Charges/Coding Visit Charges Inpatient E&M: 12251 Init Hosp L3
[2023-11-11] MEDS: Ipratropium/Albuterol Sulfate 3 ML AMPUL.NEB INHALATION (22:48)
--- NOTE | 2023-11-11 23:00 | ED.RN ---
This nurse attempted to call [facility] to obtain med list d/t pt not being able to know what meds he takes. Per the aide the nurse has left for the evening so the aide stated to call back around 0600 to talk to the nurse tomorrow.
[2023-11-12] VITALS (9 sets, daily range): BP systolic 94–136; BP diastolic 53–87; PULSE 52–83; RESP 16–20; TEMP 36.4–36.9; O2SAT 88–95; BMI 23.6
[2023-11-12] MEDS: 0.9% Normal Saline (500mL Bag) 500 ML 999 ML IV (00:33)
[2023-11-12] MEDS: MELATONIN 10 MG TABLET 5 MG PO ×2 (00:35→21:26)
[2023-11-12 00:43] LABS: Bacteria 0 SEEN /hpf (None Seen); Mucous, Urine 0 SEEN /hpf (<or=2+); Red Blood Cells-Urine 0 SEEN /hpf (0-5); Squamous Epithelial Cells - UA 0 SEEN /hpf (0-5)
[2023-11-12 00:48] LABS: Color, Urine Yellow (Yellow); Glucose, Dipstick Normal (Normal); Ketone-Dipstick Negative (Negative); Leukocyte Esterase-Dipstick 25 /ul (Negative); Nitrite-Dipstick Negative (Negative); Occult Blood-Urine Negative /ul (Negative); Protein-Dipstick Negative (Negative); Specific Gravity, Urine 1.015 (1.002-1.030); Urine Bilirubin Dipstick Negative (Negative); Urine Clarity Clear (Clear); Urine Urobilinogen Normal (Normal)
[2023-11-12 01:02] LABS: White Blood Cells 0-5 SEEN /hpf (0-5)
[2023-11-12 07:30] LABS: Hematocrit 31.6 % (40-54); Hemoglobin 10.1 g/dL (13.0-16.5); Mean Corpuscular Hgb 29.8 pg (27.0-32.0); Mean Corpuscular Volume 93.2 fL (80-94); Mean Platelet Vol. 9.4 fl (6.2-12.0); Platelet Count 264 K/mm3 (150-450); RBC Distribution Width SD 54.3 fl (35.1-43.9); Red Blood Count 3.39 M/mm3 (4.6-6.2); White Blood Count 7.6 K/mm3 (4.4-11.0)
--- NOTE | 2023-11-12 07:49 | PN.HOSP_ITS ---
Reason for Visit Reason for Visit: Diagnoses Dehydration (11/11/23) Acute kidney failure, unspecified (11/11/23) Chronic kidney disease, unspecified (11/11/23) Hypoxemia (11/11/23) Adult failure to thrive (11/11/23) Personal history of other diseases of the respiratory system (11/11/23) Objective Data Objective Data Vital Signs: Vital Signs Temp Pulse Resp BP Pulse Ox O2 Del Method O2 Flow Rate 97.5 F L 52 L 18 94/59 L 92 Room Air 2 11/12/23 05:20 11/12/23 05:20 11/12/23 05:20 11/12/23 05:20 11/12/23 05:20 11/12/23 05:20 11/12/23 01:20 Oxygen Flow Rate (L/min) 2 Oxygen Delivery Method Room Air Weight: 64.183 kg Body Mass Index (BMI) 23.6 Intake & Output: Intake and Output for Last 24 Hours 11/10/23 11/11/23 11/12/23 23:59 23:59 23:59 Intake Total 500 / 500 500 / 500 Output Total 700 / 700 Balance 500 / 500 -200 / -200 Lab / Micro Data 11/12/23 06:48 11/11/23 21:35 Labs: Laboratory Results - last 24 hr 11/11/23 21:35: WBC 7.2, RBC 4.14 L, Hgb 12.1 L, Hct 38.1 L, MCV 92.0, MCH 29.2, MCHC 31.8 L, RDW Std Deviation 52.8 H, RDW Coeff of Dariela 15.7 H, Plt Count 305, MPV 9.3, Immature Gran % (Auto) 0.400, Neut % (Auto) 60.9, Lymph % (Auto) 24.7, [place] % (Auto) 9.4, Eos % (Auto) 3.9, Baso % (Auto) 0.7, Absolute Neuts (auto) 4.4, Absolute Lymphs (auto) 1.78, Nucleated RBC % 0, Sodium 137, Potassium 4.5, Chloride 104, Carbon Dioxide 26.0, Anion Gap 7, BUN 15, Creatinine 2.30 H, Est GFR (MDRD) Af Amer 36 L, Est GFR (MDRD) Non-Af 29 L, BUN/Creatinine Ratio 6.5 L, Glucose 113 H, Calcium 9.6, Total Bilirubin 0.50, AST 11 L, ALT 11 L, Alkaline Phosphatase 83, Troponin I High Sens 7, Total Protein 8.0, Albumin 3.7, Globulin 4.3 H, Albumin/Globulin Ratio 0.9 11/12/23 00:30: Urine Color Yellow, Urine Clarity Clear, Urine pH 5.0, Ur Specific [place] 1.015, Urine Protein Negative, Urine Glucose (UA) Normal, Urine Ketones Negative, Urine Occult Blood Negative, Urine Nitrite Negative, Urine Bilirubin Negative, Urine Urobilinogen Normal, Ur Leukocyte Esterase 25 H, Urine RBC 0 SEEN, Urine WBC 0-5 SEEN, Ur Squamous Epith Cells 0 SEEN, Urine Bacteria 0 SEEN, Urine Mucus 0 SEEN 11/12/23 06:48: WBC 7.6, RBC 3.39 L, Hgb 10.1 L, Hct 31.6 L, MCV 93.2, MCH 29.8, MCHC 32.0, RDW Std Deviation 54.3 H, RDW Coeff of Dariela 16.0 H, Plt Count 264, MPV 9.4 Micro: Microbiology 11/11/23 21:37 Mucosa - Nose SARS-CoV-2, Influenza & RSV (PCR) - Final Radiography Diagnostic Testing: Radiology Impression Chest X-Ray 11/11/23 21:50 IMPRESSION: No evidence of acute cardiopulmonary disease. Electronically Signed: Rickey Drummond DO at 22:21 EDT Reading Location ID and State: [facility] / [place] Tel , Service support , Rhythm Strip Rhythm Strip: Sinus Rhythm Rate: 70 Ectopy: None Physical Exam Narrative GENERAL: cooperative HEENT: Atraumatic; normocephalic EYES; Anicteric, Normal Conjunctiva NECK; supple, normal thyroid, RESPIRATORY: Diminished to auscultation CARDIOVASCULAR: Regular S1 S2, GI: soft, normoactive bowel sounds, : No Renal angle tenderness; EXTREMITIES: No edema, no clubbing, MUSCULOSKELETAL: no muscle wasting NEURO: Awake; no lateralizing signs. SKIN: No Rash PSYCH; Flat affect Assessment & Plan Assessment/Plan (1) Hypoxia: (2) History of COPD: (3) ANASTACIO (acute kidney injury): (4) CKD (chronic kidney disease): (5) Acute dehydration: (6) Adult failure to thrive: PLAN: Plan Patient is a 77-year-old male who presented [facility] ED on 11/11/2023 from assisted living for worsening fatigue. 1. Suspected chronic hypoxia in setting of COPD ? Admit under inpatient status to [facility]. Suspect mild hypoxia on admit is worsening chronic changes rather than acute in nature. No wheezing on admit, hemodynamically stable, afebrile, chest x-ray normal; no concern for acute COPD exacerbation or pneumonia. No home inhalers listed on home medication list for unclear reason; is on home montelukast, will continue this. Will start patient on DuoNebs as needed and can consider starting patient on a long-acting inhaler. Recommend outpatient pulmonology follow-up after discharge. 2. ANASTACIO versus worsening CKD ? Creatinine 2.30 on admit, BUN only 15. Last creatinine values were 1.36 in February 2023 and 1.51 in January 2023. Suspect patient may have mild ANASTACIO due to dehydration currently but also suspect progression of underlying CKD. Given gentle IV fluid resuscitation on admit. Monitor daily BMP and urine output. 3. Acute on chronic debility ? PT/OT/case management consulted. Patient lives in assisted living but feels weak in this baseline currently, may require SNF placement on discharge. 4. Suspected malnutrition ? Nutrition consulted. Chronic medical conditions: ? Anxiety/depression/insomnia: Stable. Continue home BuSpar, fluoxetine, melatonin at night, risperidone at night and clonazepam twice daily as needed. ? Seizure disorder: Continue home lamotrigine. ? GERD: Continue home PPI. ? BPH with obstructive symptoms: Continue home Flomax. ? History of alcohol abuse with reported Warnicke's encephalopathy, cognitive impairment: Continue home memantine, folate and thiamine. ? Hypertension: Continue home amlodipine. Holding home lisinopril given concern for ANASTACIO as noted above. ? Osteoporosis: Continue denosumab injections in outpatient setting. ? Chronic mild anemia: Hemoglobin 12.1 on admit, at baseline. DVT prophylaxis: Heparin subcu CODE STATUS: DNR CCA, DNI Expected disposition: TBD Total clinical time spent by myself addressing the patient's medical issues, reviewing all the data, and collaborating with patient's care team: 75 minutes.
--- NOTE | 2023-11-12 07:49 | PCM.PN.HOSP ---
Reason for Visit Reason for Visit: Diagnoses Dehydration (11/11/23) Acute kidney failure, unspecified (11/11/23) Chronic kidney disease, unspecified (11/11/23) Hypoxemia (11/11/23) Adult failure to thrive (11/11/23) Personal history of other diseases of the respiratory system (11/11/23) Subjective Subjective Patient is a 77-year-old gentleman resident of an assisted living facility brought to the emergency department with worsening fatigue. He had apparently been complaining of nausea and vomiting. Patient was found to have acute kidney injury on admission started on IV fluids admitted to a monitored bed for further management Objective Data Objective Data Vital Signs: Vital Signs Temp Pulse Resp BP Pulse Ox O2 Del Method O2 Flow Rate 97.5 F L 52 L 18 94/59 L 92 Room Air 2 11/12/23 05:20 11/12/23 05:20 11/12/23 05:20 11/12/23 05:20 11/12/23 05:20 11/12/23 05:20 11/12/23 01:20 Oxygen Flow Rate (L/min) 2 Oxygen Delivery Method Room Air Weight: 64.183 kg Body Mass Index (BMI) 23.6 Intake & Output: Intake and Output for Last 24 Hours 11/10/23 11/11/23 11/12/23 23:59 23:59 23:59 Intake Total 500 / 500 500 / 500 Output Total 700 / 700 Balance 500 / 500 -200 / -200 Lab / Micro Data 11/12/23 06:48 11/12/23 06:48 Labs: Laboratory Results - last 24 hr 11/11/23 21:35: WBC 7.2, RBC 4.14 L, Hgb 12.1 L, Hct 38.1 L, MCV 92.0, MCH 29.2, MCHC 31.8 L, RDW Std Deviation 52.8 H, RDW Coeff of Dariela 15.7 H, Plt Count 305, MPV 9.3, Immature Gran % (Auto) 0.400, Neut % (Auto) 60.9, Lymph % (Auto) 24.7, [place] % (Auto) 9.4, Eos % (Auto) 3.9, Baso % (Auto) 0.7, Absolute Neuts (auto) 4.4, Absolute Lymphs (auto) 1.78, Nucleated RBC % 0, Sodium 137, Potassium 4.5, Chloride 104, Carbon Dioxide 26.0, Anion Gap 7, BUN 15, Creatinine 2.30 H, Est GFR (MDRD) Af Amer 36 L, Est GFR (MDRD) Non-Af 29 L, BUN/Creatinine Ratio 6.5 L, Glucose 113 H, Calcium 9.6, Total Bilirubin 0.50, AST 11 L, ALT 11 L, Alkaline Phosphatase 83, Troponin I High Sens 7, Total Protein 8.0, Albumin 3.7, Globulin 4.3 H, Albumin/Globulin Ratio 0.9 11/12/23 00:30: Urine Color Yellow, Urine Clarity Clear, Urine pH 5.0, Ur Specific [place] 1.015, Urine Protein Negative, Urine Glucose (UA) Normal, Urine Ketones Negative, Urine Occult Blood Negative, Urine Nitrite Negative, Urine Bilirubin Negative, Urine Urobilinogen Normal, Ur Leukocyte Esterase 25 H, Urine RBC 0 SEEN, Urine WBC 0-5 SEEN, Ur Squamous Epith Cells 0 SEEN, Urine Bacteria 0 SEEN, Urine Mucus 0 SEEN 11/12/23 06:48: WBC 7.6, RBC 3.39 L, Hgb 10.1 L, Hct 31.6 L, MCV 93.2, MCH 29.8, MCHC 32.0, RDW Std Deviation 54.3 H, RDW Coeff of Dariela 16.0 H, Plt Count 264, MPV 9.4 Micro: Microbiology 11/11/23 21:37 Mucosa - Nose SARS-CoV-2, Influenza & RSV (PCR) - Final Radiography Diagnostic Testing: Radiology Impression Chest X-Ray 11/11/23 21:50 IMPRESSION: No evidence of acute cardiopulmonary disease. Electronically Signed: Rickey Drummond DO at 22:21 EDT , Rhythm Strip Rhythm Strip: Sinus Rhythm Rate: 70 Ectopy: None Physical Exam Narrative GENERAL: cooperative HEENT: Atraumatic; normocephalic EYES; Anicteric, Normal Conjunctiva NECK; supple, normal thyroid, RESPIRATORY: Diminished to auscultation CARDIOVASCULAR: Regular S1 S2, GI: soft, normoactive bowel sounds, : No Renal angle tenderness; EXTREMITIES: No edema, no clubbing, MUSCULOSKELETAL: no muscle wasting NEURO: Awake; no lateralizing signs. SKIN: No Rash PSYCH; Flat affect Assessment & Plan Assessment/Plan (1) Hypoxia: (2) History of COPD: (3) ANASTACIO (acute kidney injury): (4) CKD (chronic kidney disease): (5) Acute dehydration: (6) Adult failure to thrive: PLAN: Plan Patient is a 77-year-old gentleman resident of an assisted living facility brought to the emergency department with worsening fatigue. He had apparently been complaining of nausea and vomiting. Patient was found to have acute kidney injury on admission started on IV fluids admitted to a monitored bed for further management 1. Acute kidney injury ? Baseline creatinine from 03/18/2023 was 1.36, creatinine on admission was 2.30. This was thought to be secondary to dehydration started on IV fluid with subsequent monitoring of electrolyte ordered 2. Acute hypoxia ? Thought to be secondary to COPD with acute exacerbation. Patient was placed on supplemental oxygen and bronchodilator treatment 3. Physical deconditioning - Requested for PT OT eval and social sciences chair to assist with discharge planning 4. Seizure disorder ? Patient is on lamotrigine did contain 5. Hypertension - Blood pressure controlled, home medications except for lisinopril in view of worsening kidney function continued with dose adjustment as needed 6. Dyslipidemia -Patient is on statin therapy, continued at home dose 7. Depression with anxiety ? Did continue patient home meds 8. GERD ? On PPI 9. History of previous chronic alcohol use with reported Warnicke's encephalopathy ? Remains stable 10. Anemia - Secondary to chronic disorder monitoring H&H and transfuse if patient becomes symptomatic or hemoglobin falls below 7 11. Osteoporosis ? Patient is on denosumab as outpatient 12. DVT prophylaxis ? SC heparin Time spent in the patient's overall evaluation,decision-making process, review of diagnostic data, adjustment of management, discussion with other providers, nursing nursing and ancillary staff involved in patient's care documentation, 38 Minutes Charges/Coding Visit Charges Inpatient E&M: 69613 Subs Hosp L2
[2023-11-12 08:12] LABS: Anion Gap 6 (5-15); BUN 15 mg/dL (7-18); BUN/Creat Ratio 7.7 RATIO (10-20); Calcium,Total 9.1 mg/dL (8.5-10.1); Chloride 110 mmol/L (98-107); Creatinine, Serum 1.96 mg/dL (0.70-1.30); EST Glomerular Filtration Rate 35 mL/min (>60); Est Glom Filt Rate - Afr Amer 43 mL/min (>60); Estimated Creatinine Clearance 27.46 ml/min; Glucose 98 mg/dL (74-106); Potassium 4.7 mmol/L (3.5-5.1); Sodium Level 138 mmol/L (136-145)
--- NOTE | 2023-11-12 08:48 | NURSING ---
spoke with nurse at [facility], states she will fax over pt home med list as pt states he is not sure what meds he takes.
--- NOTE | 2023-11-12 08:57 | CASEMGMT ---
Discharge Planning A list of?SNF providers including quality and resource use data and consistent with the patient's preferred geographic region, medical needs, and insurance network was created in [employer] Guide.? This list was provided to the [facility]. Hawa Brown, Discharge Planning Asst
--- NOTE | 2023-11-12 10:52 | CASEMGMT ---
Addendum entered by Hawa Brown 11/12/23 11:16: Fax confirmation rec'd. Hawa Brown DC Planning Asst. Original Note: Discharge Planning Updates faxed to [facility]. Confirmed that patient does not use O2 at [place]. SW and RN CM updated. Hawa Brown DC Planning Asst.
[2023-11-12] MEDS: Heparin Injection (Vial) 5,000 UNIT/ML VIAL 5000 UNIT SC ×2 (12:00→21:26)
[2023-11-12] MEDS: Pantoprazole Sodium 40 MG Tablet PO (12:01)
[2023-11-12] MEDS: Memantine Hydrochloride 10 MG Tablet PO ×2 (12:01→21:28)
[2023-11-12] MEDS: Folic Acid 1 MG Tablet PO (12:01)
[2023-11-12] MEDS: Cyanocobalamin 500 MCG Tablet 1000 MCG PO (12:01)
[2023-11-12] MEDS: Thiamine Hydrochloride 100 MG Tablet PO (12:01)
[2023-11-12] MEDS: lamoTRIgine 150 MG Tablet PO ×2 (12:01→21:27)
[2023-11-12] MEDS: amLODIPine 5 MG Tablet PO (12:02)
[2023-11-12] MEDS: FLUoxetine 20 MG Capsule PO (12:02)
[2023-11-12] MEDS: busPIRone 5 MG Tablet PO ×2 (12:02→21:26)
[2023-11-12] MEDS: 0.9% Saline Lock 10 ML Syringe IV ×2 (12:02→21:25)
[2023-11-12] MEDS: clonazePAM 0.5 MG Tablet PO ×2 (12:03→21:32)
[2023-11-12] MEDS: Ensure Plus High Protein 120 ML LIQUID PO ×3 (12:07→17:53)
[2023-11-12] MEDS: Ondansetron 4 MG/2 ML Vial IV (13:15)
--- NOTE | 2023-11-12 14:01 | CASEMGMT ---
Social Work- SW spoke with pt to discuss preference at discharge. Pt states that he plans to return to [facility] at discharge. Pt states that he has a treadmill he uses regularly at home and also walks to the library frequently. Pt walked 240' with PT today and states that is much less than usual for him, as he is weak from not keeping food down. SW remains available to follow. JEFFERSON Jj
[2023-11-12] MEDS: Tamsulosin HCl 0.4 MG Capsule PO (17:53)
[2023-11-12] MEDS: Senna/Docusate Sodium 1 Tablet PO (21:26)
[2023-11-12] MEDS: RisperiDONE 0.5 MG Tablet PO (21:28)
[2023-11-12] MEDS: Montelukast 10 MG Tablet PO (21:29)
[2023-11-12] MEDS: Acetaminophen 325 MG Tablet 650 MG PO (21:32)
--- NOTE | 2023-11-12 23:43 | US_ITS ---
STUDY: RENAL ULTRASOUND - COMPLETE REASON FOR EXAM: Male, 77 years old. ANASTACIO, r/o obstructive etiology TECHNIQUE: Ultrasound evaluation of the kidneys was performed with real-time and static bahena-scale imaging. COMPARISON: Comparison is made with prior study December 02, 2019. FINDINGS: RIGHT KIDNEY: Normal location of the right kidney, which is normal in size. The right kidney measures 8.6 cm x 4.4 cm x 4.1 cm. There is a normal cortex of the right kidney. The renal cortex measures 1.0 cm. 2 renal cysts are seen. The larger measures 2.2 cm x 1.9 cm x 1.8 cm. There are no right renal calculi. There is no right hydronephrosis. DISTAL RIGHT URETER: There is non-visualization of the distal right ureter. There is no demonstrated right ureterovesical junction calculus. There is a visualized right ureteral jet. LEFT KIDNEY: Normal location of the left kidney, which is normal in size. The left kidney measures 8.9 cm x 4.2 cm x 4.7 cm. There is diffuse thinning of the renal cortex. The renal cortex measures 0.7 cm. There is a 9 mm x 10 mm x 6 mm left renal cyst. There are no left renal calculi. There is no left hydronephrosis. DISTAL LEFT URETER: There is non-visualization of the distal left ureter. There is no demonstrated left ureterovesical junction calculus. There is a visualized left ureteral jet. BLADDER: The distended urinary bladder has a volume of 92 ml. There is a normal wall thickness of the distended urinary bladder. There is no demonstrated mass within the urinary bladder. There are no demonstrated bladder calculi. US/Kidney and Bladder IMPRESSION: Bilateral renal cysts more prominent on the right side. Mild left renal cortical thinning. Electronically Signed: Tigre Borden MD at 9:42 EDT ,
[2023-11-13 02:54] VITALS: BP 102/59; PULSE 79; RESP 16; TEMP 36.6; O2SAT 94
--- NOTE | 2023-11-13 07:22 | PCM.PN.HOSP ---
Reason for Visit Reason for Visit: Diagnoses Dehydration (11/11/23) Acute kidney failure, unspecified (11/11/23) Chronic kidney disease, unspecified (11/11/23) Hypoxemia (11/11/23) Adult failure to thrive (11/11/23) Personal history of other diseases of the respiratory system (11/11/23) Objective Data Objective Data Vital Signs: Vital Signs Temp Pulse Resp BP Pulse Ox O2 Del Method O2 Flow Rate 97.9 F 79 16 102/59 L 94 Room Air 2 11/13/23 02:54 11/13/23 02:54 11/13/23 02:54 11/13/23 02:54 11/13/23 02:54 11/13/23 03:02 11/12/23 21:40 Oxygen Flow Rate (L/min) 2 Oxygen Delivery Method Room Air Weight: 64.183 kg Body Mass Index (BMI) 23.6 Intake & Output: Intake and Output for Last 24 Hours 11/11/23 11/12/23 11/13/23 23:59 23:59 23:59 Intake Total 500 / 500 1860 / 1860 400 / 400 Output Total 800 / 800 Balance 500 / 500 1060 / 1060 400 / 400 Lab / Micro Data 11/12/23 06:48 11/12/23 06:48 Labs: Laboratory Results - last 24 hr 11/12/23 06:48: WBC 7.6, RBC 3.39 L, Hgb 10.1 L, Hct 31.6 L, MCV 93.2, MCH 29.8, MCHC 32.0, RDW Std Deviation 54.3 H, RDW Coeff of Dariela 16.0 H, Plt Count 264, MPV 9.4, Sodium 138, Potassium 4.7, Chloride 110 H, Carbon Dioxide 22.0, Anion Gap 6, BUN 15, Creatinine 1.96 H, Estim Creat Clear Calc 27.46, Est GFR (MDRD) Af Amer 43 L, Est GFR (MDRD) Non-Af 35 L, BUN/Creatinine Ratio 7.7 L, Glucose 98, Calcium 9.1 Micro: Microbiology 11/11/23 21:37 Mucosa - Nose SARS-CoV-2, Influenza & RSV (PCR) - Final Radiography Diagnostic Testing: Radiology Impression Renal Ultrasound 11/12/23 23:43 IMPRESSION: Bilateral renal cysts more prominent on the right side. Mild left renal cortical thinning. Electronically Signed: Tigre Borden MD at 9:42 EDT , Rhythm Strip Rhythm Strip: Sinus Rhythm Rate: 70 Ectopy: None Physical Exam Narrative GENERAL: cooperative HEENT: Atraumatic; normocephalic EYES; Anicteric, Normal Conjunctiva NECK; supple, normal thyroid, RESPIRATORY: Diminished to auscultation CARDIOVASCULAR: Regular S1 S2, GI: soft, normoactive bowel sounds, : No Renal angle tenderness; EXTREMITIES: No edema, no clubbing, MUSCULOSKELETAL: no muscle wasting NEURO: Awake; no lateralizing signs. SKIN: No Rash PSYCH; Flat affect Assessment & Plan Assessment/Plan (1) Hypoxia: (2) History of COPD: (3) ANASTACIO (acute kidney injury): (4) CKD (chronic kidney disease): (5) Acute dehydration: (6) Adult failure to thrive: PLAN: Plan Patient is a 77-year-old gentleman resident of an assisted living facility brought to the emergency department with worsening fatigue. He had apparently been complaining of nausea and vomiting. Patient was found to have acute kidney injury on admission started on IV fluids admitted to a monitored bed for further management 1. Acute kidney injury ? Baseline creatinine from 03/18/2023 was 1.36, creatinine on admission was 2.30. This was thought to be secondary to dehydration started on IV fluid with subsequent monitoring of electrolyte ordered 2. Acute hypoxia ? Thought to be secondary to COPD with acute exacerbation. Patient was placed on supplemental oxygen and bronchodilator treatment 3. Physical deconditioning - Requested for PT OT eval and social services specialist to assist with discharge planning 4. Seizure disorder ? Patient is on lamotrigine did contain 5. Hypertension - Blood pressure controlled, home medications except for lisinopril in view of worsening kidney function continued with dose adjustment as needed 6. Dyslipidemia -Patient is on statin therapy, continued at home dose 7. Depression with anxiety ? Did continue patient home meds 8. GERD ? On PPI 9. History of previous chronic alcohol use with reported Warnicke's encephalopathy ? Remains stable 10. Anemia - Secondary to chronic disorder monitoring H&H and transfuse if patient becomes symptomatic or hemoglobin falls below 7 11. Osteoporosis ? Patient is on denosumab as outpatient 12. DVT prophylaxis ? SC heparin Time spent in the patient's overall evaluation,decision-making process, review of diagnostic data, adjustment of management, discussion with other providers, nursing nursing and ancillary staff involved in patient's care documentation, 38 Minutes
[2023-11-13] MEDS: Folic Acid 1 MG Tablet PO (08:03)
[2023-11-13] MEDS: Thiamine Hydrochloride 100 MG Tablet PO (08:03)
[2023-11-13] MEDS: Memantine Hydrochloride 10 MG Tablet PO (08:03)
[2023-11-13] MEDS: busPIRone 5 MG Tablet PO (08:03)
[2023-11-13] MEDS: Cyanocobalamin 500 MCG Tablet 1000 MCG PO (08:03)
[2023-11-13] MEDS: Senna/Docusate Sodium 1 Tablet PO (08:03)
[2023-11-13] MEDS: lamoTRIgine 150 MG Tablet PO (08:03)
[2023-11-13] MEDS: FLUoxetine 20 MG Capsule PO (08:04)
[2023-11-13] MEDS: Heparin Injection (Vial) 5,000 UNIT/ML VIAL 5000 UNIT SC (08:04)
[2023-11-13] MEDS: Pantoprazole Sodium 40 MG Tablet PO (08:04)
[2023-11-13] MEDS: amLODIPine 5 MG Tablet PO (08:04)
[2023-11-13] MEDS: clonazePAM 0.5 MG Tablet PO (08:08)
[2023-11-13] MEDS: Ensure Plus High Protein 120 ML LIQUID PO (08:08)
[2023-11-13 08:36] LABS: Absolute Lymphocyte Count 2.47 X10^3/uL (0.83-4.51); Absolute Neutrophil Count 5.4 X10^3/uL (2.0-7.7); Basophil# 0.04 X10^3/uL; Basophil% 0.4 % (0-1); Eosinophils% 3.3 % (0-5); Hematocrit 33.2 % (40-54); Hemoglobin 10.4 g/dL (13.0-16.5); Lymphocyte # 2.47 X10^3/ul (0.83-4.51); Lymphocyte % 27.1 % (19-41); Mean Corp Hgb Conc 31.3 g/dL (32-36); Mean Corpuscular Hgb 29.1 pg (27.0-32.0); Mean Platelet Vol. 9.2 fl (6.2-12.0); Monocyte# 0.88 X10^3/uL; Monocyte% 9.6 % (0-10); NRBC Flagged by Analyzer 0 % (0-5); Neutrophil # 5.39 X10^3/uL (2.7-7.7); Neutrophil % 59.1 % (47-70); Platelet Count 268 K/mm3 (150-450); RBC Distribution Width CV 16.4 % (11.6-14.6); RBC Distribution Width SD 55.6 fl (35.1-43.9); Red Blood Count 3.57 M/mm3 (4.6-6.2); White Blood Count 9.1 K/mm3 (4.4-11.0)
[2023-11-13 08:48] VITALS: BP 125/73; PULSE 65; RESP 18; TEMP 36.6; O2SAT 93
--- NOTE | 2023-11-13 08:57 | CASEMGMT ---
Social Work- Pt reports that he does not have and does not want to do directives at this time. JEFFERSON Jj
[2023-11-13 08:59] LABS: Anion Gap 2 (5-15); BUN 14 mg/dL (7-18); Calcium,Total 9.9 mg/dL (8.5-10.1); Chloride 111 mmol/L (98-107); Creatinine, Serum 1.55 mg/dL (0.70-1.30); EST Glomerular Filtration Rate 46 mL/min (>60); Est Glom Filt Rate - Afr Amer 56 mL/min (>60); Estimated Creatinine Clearance 34.72 ml/min; Glucose 100 mg/dL (74-106); Magnesium 2.2 mg/dL (1.6-2.6); Potassium 4.8 mmol/L (3.5-5.1); Sodium Level 139 mmol/L (136-145)
--- NOTE | 2023-11-13 09:03 | PCM.DC.SUM ---
Providers Date of Admission: 11/11/23 Date of Discharge: 11/13/23 Primary Care Physician: Dr. Shiva Zamarripa MD Reason For Visit: GENERALIZED FATIGUE W/ HYPOXIA, ANASTACIO Diagnosis Discharge Diagnosis (1) Hypoxia: Status: Acute Code(s): R09.02 - Hypoxemia (2) History of COPD: Status: Chronic Code(s): Z87.09 - Personal history of other diseases of the respiratory system (3) ANASTACIO (acute kidney injury): Status: Inactive Code(s): N17.9 - Acute kidney failure, unspecified (4) CKD (chronic kidney disease): Status: Inactive Code(s): N18.9 - Chronic kidney disease, unspecified (5) Acute dehydration: Status: Acute Code(s): E86.0 - Dehydration (6) Adult failure to thrive: Status: Acute Code(s): R62.7 - Adult failure to thrive Plan Patient is a 77-year-old gentleman resident of an assisted living facility brought to the emergency department with worsening fatigue. He had apparently been complaining of nausea and vomiting. Patient was found to have acute kidney injury on admission started on IV fluids admitted to a monitored bed for further management 1. Acute kidney injury ? Baseline creatinine from 03/18/2023 was 1.36, creatinine on admission was 2.30. This was thought to be secondary to dehydration started on IV fluid with subsequent monitoring of electrolyte ordered ? 11/13/2023 patient kidney function did improve with rehydration. 2. Acute hypoxia ? Thought to be secondary to COPD with acute exacerbation. Patient was placed on supplemental oxygen and bronchodilator treatment 3. Physical deconditioning - Requested for PT OT eval and social media community manager to assist with discharge planning 4. Seizure disorder ? Patient is on lamotrigine did contain 5. Hypertension - Blood pressure controlled, home medications except for lisinopril in view of worsening kidney function continued with dose adjustment as needed 6. Dyslipidemia -Patient is on statin therapy, continued at home dose 7. Depression with anxiety ? Did continue patient home meds 8. GERD ? On PPI 9. History of previous chronic alcohol use with reported Warnicke's encephalopathy ? Remains stable 10. Anemia - Secondary to chronic disorder monitoring H&H and transfuse if patient becomes symptomatic or hemoglobin falls below 7 11. Osteoporosis ? Patient is on denosumab as outpatient 12. DVT prophylaxis ? SC heparin 13. Nasal congestion ? Patient treated symptomatically. 14. Physical deconditioning - Requested for PT OT eval and social media community manager to assist with discharge planning 15. I have reviewed the oxygen testing, and this patient qualifies for the home equipment and portability. The patient is mobile in the home and the community. 16. The patient is unsafe to use a cane and requires a walker for ambulation in the home and the community. Time spent in the patient's overall evaluation,decision-making process, review of diagnostic data, adjustment of management, discussion with other providers, nursing nursing and ancillary staff involved in patient's care documentation, 38 Minutes Medications at Discharge Home Medications fluoxetine 20 mg capsule 20 mg PO DAILY DEPRESSION #90 caps 08/07/20 lamotrigine 150 mg tablet 150 mg PO BID #60 tabs 07/15/21 ondansetron HCl 4 mg tablet 4 mg PO TID PRN nausea and vomiting #90 tabs 07/15/21 omeprazole 40 mg capsule,delayed release 40 mg PO DAILY GERD #90 caps 07/19/21 tamsulosin 0.4 mg capsule 0.4 mg PO DAILY@1830 prostate #180 caps 08/16/21 amlodipine 5 mg tablet 5 mg PO DAILY BP #90 tabs 12/03/21 polyethylene glycol 3350 17 gram/dose oral powder (Miralax) 17 g PO DAILY PRN constipation #119 grams 01/23/22 memantine 10 mg tablet See Rx Instructions .Route .COMPLEX #56 tabs 01/31/22 cyanocobalamin (vitamin B-12) 500 mcg tablet 1,000 mcg (2 x 500 mcg) PO BREAKFAST #0 tabs 02/01/22 folic acid 1 mg tablet 1 mg PO BREAKFAST #0 tabs 02/01/22 levofloxacin 750 mg tablet 750 mg PO Q48H #3 tabs 02/01/22 melatonin 10 mg sublingual tablet 10 mg PO QHS #0 tabs 02/01/22 polyethylene glycol 3350 17 gram oral powder packet 34 g PO DAILY #0 ea 02/01/22 sennosides 8.6 mg-docusate sodium 50 mg tablet (Stool Softener-Stimulant Laxative) 1 tab PO BID #0 tabs 02/01/22 thiamine HCl (vitamin B1) 100 mg tablet (Vitamin B-1) 100 mg PO BREAKFAST #0 tabs 02/01/22 denosumab 60 mg/mL subcutaneous syringe (Prolia) 60 mg subcut [id number] #1 mL 05/06/22 buspirone 5 mg tablet 5 mg PO BID not on MAR 01/06/23 mirtazapine 7.5 mg tablet 7.5 mg PO QHS mood 01/06/23 montelukast 10 mg tablet 10 mg PO QHS breathing 01/06/23 risperidone 0.5 mg tablet 0.5 mg PO QHS antipsychotic 01/06/23 acetaminophen 500 mg tablet (Acetaminophen Extra Strength) 1,000 mg PO .noon PRN fever or pain 11/12/23 acetaminophen 500 mg tablet (Acetaminophen Extra Strength) 1,000 mg PO BID pain/ scheduled med 11/12/23 atorvastatin 20 mg tablet 20 mg PO DAILY cholesterol 11/12/23 clonazepam 0.5 mg tablet 0.5 mg PO BID anxiety 11/12/23 diclofenac sodium 1 % topical gel (Aleve (diclofenac)) 1 ea topical BID arthritis pain 11/12/23 guaifenesin 400 mg tablet (Chest Congestion Relief) 400 mg PO TID PRN chest congestion 11/12/23 lidocaine HCl 4 % topical cream (Aspercreme (lidocaine HCl)) 1 applic topical TID PRN pain 11/12/23 fluticasone propionate 50 mcg/actuation nasal spray,suspension 1 spray NASAL BID #0 grams 11/13/23 Physical Exam Narrative GENERAL: cooperative HEENT: Atraumatic; normocephalic EYES; Anicteric, Normal Conjunctiva NECK; supple, normal thyroid, RESPIRATORY: Diminished to auscultation CARDIOVASCULAR: Regular S1 S2, GI: soft, normoactive bowel sounds, : No Renal angle tenderness; EXTREMITIES: No edema, no clubbing, MUSCULOSKELETAL: no muscle wasting NEURO: Awake; no lateralizing signs. SKIN: No Rash PSYCH; Flat affect Weight / BMI Weight Weight: 64.183 kg Body Mass Index (BMI) 23.6 ABG / Lab / Microbiology Data 11/13/23 08:10 11/13/23 08:10 Laboratory: Laboratory Results - last 24 hr 11/13/23 08:10: WBC 9.1, RBC 3.57 L, Hgb 10.4 L, Hct 33.2 L, MCV 93.0, MCH 29.1, MCHC 31.3 L, RDW Std Deviation 55.6 H, RDW Coeff of Dariela 16.4 H, Plt Count 268, MPV 9.2, Immature Gran % (Auto) 0.500, Neut % (Auto) 59.1, Lymph % (Auto) 27.1, Woodward % (Auto) 9.6, Eos % (Auto) 3.3, Baso % (Auto) 0.4, Absolute Neuts (auto) 5.4, Absolute Lymphs (auto) 2.47, Nucleated RBC % 0, Sodium 139, Potassium 4.8, Chloride 111 H, Carbon Dioxide 26.0, Anion Gap 2 L, BUN 14, Creatinine 1.55 H, Estim Creat Clear Calc 34.72, Est GFR (MDRD) Af Amer 56 L, Est GFR (MDRD) Non-Af 46 L, BUN/Creatinine Ratio 9.0 L, Glucose 100, Calcium 9.9, Magnesium 2.2 Microbiology: Microbiology 11/11/23 21:37 Mucosa - Nose SARS-CoV-2, Influenza & RSV (PCR) - Final Radiography Diagnostic Testing: Radiology Impression Renal Ultrasound 11/12/23 23:43 IMPRESSION: Bilateral renal cysts more prominent on the right side. Mild left renal cortical thinning. Electronically Signed: Tigre Borden MD at 9:42 EDT , D/C Instructions Discharge Diet: No restrictions Discharge Activity: Return to Normal Activity Call your doctor if you observe: Fever of 101 or Higher, Shortness of breath, Fainting spells and Chest pain Meaningful Use Info Meaningful Use Meaningful Use Diagnoses (Choose all that apply): None applicable Ischemic Stroke Statin Dosing Therapy Reference: STATIN DOSE THERAPY REFERENCE: * Patients > 75 years receive moderate or high dose statin therapy. * Patients 75 years or YOUNGER should receive HIGH intensity statin dose unless contraindicated. You will be required to document reason for non-treatment if statin daily dose does not meet guidelines. HIGH DOSE STATIN THERAPY DAILY Atorvastatin > than or = to 40 mg Rosuvastatin > than or = to 20 mg Amlodipine + Atorvastatin > than or = to 2.5/40 mg Ezetimibe + Simvastatin 10/80 mg Simvastatin 80mg Discharge Plan Admission Admit Date/Time: 11/11/23 22:46 Attending Provider: Jarrett Crawley Primary Care Provider: Shiva Zamarripa Consulting Providers: Maury Dougherty Discharge Orders/Prescriptions Prescriptions: New fluticasone propionate 50 mcg/actuation Taylor,Suspension 1 spray NASAL BID Qty: 0 0RF Continued fluoxetine 20 mg capsule 20 mg PO DAILY Qty: 90 2RF lamotrigine 150 mg tablet 150 mg PO BID Qty: 60 5RF ondansetron HCl 4 mg tablet 4 mg PO TID PRN (Reason: nausea and vomiting) Qty: 90 5RF amlodipine 5 mg tablet 5 mg PO DAILY Qty: 90 3RF buspirone 5 mg tablet 5 mg PO BID mirtazapine 7.5 mg tablet 7.5 mg PO QHS montelukast 10 mg tablet 10 mg PO QHS risperidone 0.5 mg tablet 0.5 mg PO QHS polyethylene glycol 3350 [Miralax] 17 gram/dose powder 17 g PO DAILY PRN (Reason: constipation) Qty: 119 0RF cyanocobalamin (vitamin B-12) 500 mcg Tablet 1,000 mcg PO BREAKFAST Qty: 0 0RF folic acid 1 mg Tablet 1 mg PO BREAKFAST Qty: 0 0RF melatonin 10 mg Tablet, Sublingual 10 mg PO QHS Qty: 0 0RF polyethylene glycol 3350 17 gram Powder In Packet 34 g PO DAILY Qty: 0 0RF sennosides-docusate sodium [Stool Softener-Stimulant Laxat] 8.6-50 mg Tablet 1 tab PO BID Qty: 0 0RF thiamine HCl (vitamin B1) [Vitamin B-1] 100 mg Tablet 100 mg PO BREAKFAST Qty: 0 0RF levofloxacin 750 mg tablet 750 mg PO Q48H Qty: 3 0RF Rx Instructions: Start 02/03/2022 acetaminophen [Acetaminophen Extra Strength] 500 mg tablet 1,000 mg PO BID atorvastatin 20 mg tablet 20 mg PO DAILY clonazepam 0.5 mg tablet 0.5 mg PO BID diclofenac sodium [Aleve (diclofenac)] 1 % gel 1 ea topical BID Rx Instructions: diclofenac gel 1% apply topically to affected areas lidocaine HCl [Aspercreme (lidocaine HCl)] 4 % cream 1 applic topical TID PRN (Reason: pain) guaifenesin [Chest Congestion Relief] 400 mg tablet 400 mg PO TID PRN (Reason: chest congestion) acetaminophen [Acetaminophen Extra Strength] 500 mg tablet 1,000 mg PO .noon PRN (Reason: fever or pain) Patient Comments: 500mg tablet- take 2 tablets (1000mg total) by mouth daily at noon as needed omeprazole 40 mg capsule,delayed release(DR/EC) 40 mg PO DAILY Qty: 90 3RF tamsulosin 0.4 mg capsule 0.4 mg PO DAILY@1830 Qty: 180 3RF memantine 10 mg tablet See Rx Instructions .ROUTE .COMPLEX Qty: 56 2RF Dose Instruction: TAKE 1 TABLET BY MOUTH TWICE A DAY Rx Instructions: TAKE 1 TABLET BY MOUTH TWICE A DAY Prolia 60 mg/mL syringe 60 mg subcut [id number] Qty: 1 0RF Discontinued lisinopril 10 mg tablet 10 mg PO DAILY Qty: 90 3RF potassium chloride 20 mEq tablet extended release 40 meq PO DAILY 2 Days Qty: 4 0RF hydrocodone-acetaminophen [hydrocodone-acetaminophen] 5-325 mg tablet 1 tab PO Q6H PRN PRN (Reason: Pain) 3 Days Qty: 10 0RF levofloxacin 500 mg tablet 500 mg PO DAILY Rx Instructions: take one tablet my mouth for 10 days starting 11/04/2023 Referrals / Follow Up: Shiva Zamarripa MD [Primary Care Provider] - Within 1 Week (Plastic Surgery Manager Tried to make the appointment for the patient. The patient has not been seen in office since 2012 so he has to fill out paperwork as new patient. I have given the patient the paperwork.) Disposition Disposition (needs filled in before D/C Order can be placed): Assisted Living Charges/Coding Visit Charges Inpatient E&M: 66088 Disch Hosp >30min
[2023-11-13 09:04] VITALS: O2SAT 87
[2023-11-13 09:04] LABS: Phosphorus 2.9 mg/dL (2.5-4.9)
--- NOTE | 2023-11-13 09:29 | PHA.DC.MR.R ---
Pharmacy [place] Med Reconciliation Pharmacy Service has performed discharge medication reconciliation for this patient. The patient's discharge medication list was reviewed for discrepancies and discrepancies were resolved. Medications at Discharge Home Medications fluoxetine 20 mg capsule 20 mg PO DAILY DEPRESSION #90 caps 08/07/20 lamotrigine 150 mg tablet 150 mg PO BID #60 tabs 07/15/21 ondansetron HCl 4 mg tablet 4 mg PO TID PRN nausea and vomiting #90 tabs 07/15/21 omeprazole 40 mg capsule,delayed release 40 mg PO DAILY GERD #90 caps 07/19/21 tamsulosin 0.4 mg capsule 0.4 mg PO DAILY@1830 prostate #180 caps 08/16/21 amlodipine 5 mg tablet 5 mg PO DAILY BP #90 tabs 12/03/21 polyethylene glycol 3350 17 gram/dose oral powder (Miralax) 17 g PO DAILY PRN constipation #119 grams 01/23/22 memantine 10 mg tablet See Rx Instructions .Route .COMPLEX #56 tabs 01/31/22 cyanocobalamin (vitamin B-12) 500 mcg tablet 1,000 mcg (2 x 500 mcg) PO BREAKFAST #0 tabs 02/01/22 folic acid 1 mg tablet 1 mg PO BREAKFAST #0 tabs 02/01/22 levofloxacin 750 mg tablet 750 mg PO Q48H #3 tabs 02/01/22 melatonin 10 mg sublingual tablet 10 mg PO QHS #0 tabs 02/01/22 polyethylene glycol 3350 17 gram oral powder packet 34 g PO DAILY #0 ea 02/01/22 sennosides 8.6 mg-docusate sodium 50 mg tablet (Stool Softener-Stimulant Laxative) 1 tab PO BID #0 tabs 02/01/22 thiamine HCl (vitamin B1) 100 mg tablet (Vitamin B-1) 100 mg PO BREAKFAST #0 tabs 02/01/22 denosumab 60 mg/mL subcutaneous syringe (Prolia) 60 mg subcut [id number] #1 mL 05/06/22 buspirone 5 mg tablet 5 mg PO BID not on MAR 01/06/23 mirtazapine 7.5 mg tablet 7.5 mg PO QHS mood 01/06/23 montelukast 10 mg tablet 10 mg PO QHS breathing 01/06/23 risperidone 0.5 mg tablet 0.5 mg PO QHS antipsychotic 01/06/23 acetaminophen 500 mg tablet (Acetaminophen Extra Strength) 1,000 mg PO .noon PRN fever or pain 11/12/23 acetaminophen 500 mg tablet (Acetaminophen Extra Strength) 1,000 mg PO BID pain/ scheduled med 11/12/23 atorvastatin 20 mg tablet 20 mg PO DAILY cholesterol 11/12/23 clonazepam 0.5 mg tablet 0.5 mg PO BID anxiety 11/12/23 diclofenac sodium 1 % topical gel (Aleve (diclofenac)) 1 ea topical BID arthritis pain 11/12/23 guaifenesin 400 mg tablet (Chest Congestion Relief) 400 mg PO TID PRN chest congestion 11/12/23 lidocaine HCl 4 % topical cream (Aspercreme (lidocaine HCl)) 1 applic topical TID PRN pain 11/12/23 fluticasone propionate 50 mcg/actuation nasal spray,suspension 1 spray NASAL BID #0 grams 11/13/23
[2023-11-13] MEDS: Fluticasone 0.05% 1 SPRAY NASAL.SRY NASAL (09:33)
[2023-11-13] MEDS: Acetaminophen 325 MG Tablet 650 MG PO (09:33)
[2023-11-13] MEDS: Atorvastatin Calcium 20 MG Tablet PO (09:33)
[2023-11-13 09:40] VITALS: O2SAT 87; O2SAT 93
--- NOTE | 2023-11-13 10:13 | CASEMGMT ---
Addendum entered by Cyndee Ahumada 11/13/23 12:16: RAMY CIFUENTES into pt room, pt aware that the form to [facility] was faxed and that his sister will receive a call as his phone number is not on file. Pt states he does not know his phone number and is agreeable to sister getting the call. Pt is aware that until he establishes with PCP, he cannot have homecare. He verbalizes understanding of this. Pt is aware that his walker and portable oxygen tank will be delivered to his room. No further needs at this time. Original Note: RAMY CIFUENTES notified pt needs oxygen upon dc. RAMY CIFUENTES into pt room, pt lying in bed in no distress. Discussed local in network DME companies, pt chose [employer] but states he does not plan on using the oxygen. Provided education on this. Discussed calling [employer] once home for concentrator to be delivered. Pt verbalized understanding. Pt states pox do not work on him. RAMY CIFUENTES obtained pox and checked for 90%. One prong of oxygen cannula not in pt nose. Asked pt to place properly and rechecked for 93%. Pt is aware that the pox works and the oxygen helps him. Pt very pleasant but cantankerous. Pt aware to check at home and keep at 90% or higher. Gave pox to pt to keep. Parachute Accessories Attacher came in room and was unable to schedule an appt with as pt has not seen him since 2012. She provided paper for pt to fill out to become a patient again. Asked pt if he will complete. He states he doesn't need a doctor. Asked if RAMY CIFUENTES could complete on his behalf, if he will go to appt. Pt agreed to this. Completed and faxed at this time. Pt denies any further needs.
--- NOTE | 2023-11-13 11:56 | CASEMGMT ---
RN CM noted pt DC order in, pt qualifies for home O2. Therapy also recommending FWW. Pt provided list of local DME companies, selected [employer] for Oxygen and FWW needs. Order for FWW and O2 sent to [employer] via [facility]. Filed scripts in pt chart.
--- NOTE | 2023-11-13 12:54 | CASEMGMT ---
RAMY CIFUENTES notified pt purchased a FWW August 2019, unable to get a new walker through insurance for another year. Brought O2 talk to pt room, asked pt about FWW. Pt states not sure where the walker is at and states doesn't feel he needs a walker or O2 and won't use it if he doesn't want to. States he has a temper and doesn't like people bossing him around. Explain to pt RAMY CIFUENTES wants to ensure his safety. RAMY CIFUENTES attempted to call pt sister to locate the walker, unable to leave a message due to no voicemail set up. Notified RAMY Cuevas is in the room.
--- NOTE | 2023-11-13 13:10 | CASEMGMT ---
Addendum entered by Hawa Brown 11/13/23 13:13: Physicians will transport patient by wheelchair at 2:30p. Hawa Brown DC Planning Asst. Original Note: Discharge Planning Discharge Summary and transport time faxed to [facility]. Copy of O2 script will be sent with him. Advised TT that someone will need to call [facility] [place] to arrange for concentrator to be delivered. Fax confirmation rec'd. Nursing, SW, patient, and his sister (Linda) updated. Hawa Brown DC Planning Asst.
[2023-11-13 13:30] VITALS: BP 132/80; PULSE 63; RESP 16; TEMP 36.4; O2SAT 94
--- NOTE | 2023-11-13 15:43 | CHAPLAIN ---
Type of Pastoral Visit _x__ Initial Visit ___ Follow-up Visit ___ On-call Visit ___ General Patient Visit ___ Spiritual Assessment ___ Family Conference ___ Bereavement ___ Rapid Response ___ Code Blue ___ Other (describe below) Pastoral Care Referral From _x__ Patient ___ Family ___ Nurse ___ Physician ___ Combine Operator ___ Wire Mesh Knitter ___ Other (describe below) Sacrament/Intervention _x__ Active listening ___ Anointing ___ Druze ___ Bereavement ___ Communion _x__ [place] exploration ___ _x__ Life review _x__ Prayer ___ Reconciliation ___ Sacrament of Sick ___ Supportive presence ___ Wedding ___ Other (describe below) Pastoral Comments patient is talkative and is expecting to be discharged soon; pt expresses his opinions about what he needs for his health; pt talks about his life and admits that he made mistakes that he now wishes he had not; pt speaks of having questions about God and Heaven; pt also just keeps talking even after dialogue is attempted; pt admits to issues of anxiety that have plagued him during his lifetime; trying to open up the conversation about his anxiety and how he marv, the patient avoids answering directly; support and listening are given; pt acknowledges that a prayer is acceptable though he has no current connection to a chiny[place] community
== END 2023-11-13 15:45 | disposition home or self-care (01) | DRG 683 ==
LOC: ED 22:57 → MS3 23:25
PROVIDERS: Admitting Provider Hospitalist; Emergency Provider Emergency Medicine; PCP Family Medicine; Visit Provider Internal Medicine
DX: N17.9 Acute kidney failure, unspecified (principal); J44.1 Chronic obstructive pulmonary disease with (acute) exacerbation; N13.8 Other obstructive and reflux uropathy; G40.909 Epilepsy, unspecified, not intractable, without status epilepticus; D64.9 Anemia, unspecified; I12.9 Hypertensive chronic kidney disease with stage 1 through stage 4 chronic kidney disease, or unspecified chronic kidney disease; F32.A Depression, unspecified; F10.11 Alcohol abuse, in remission; E86.0 Dehydration; F41.9 Anxiety disorder, unspecified; E78.5 Hyperlipidemia, unspecified; K21.9 Gastro-esophageal reflux disease without esophagitis; R11.2 Nausea with vomiting, unspecified; R09.02 Hypoxemia; R62.7 Adult failure to thrive; M81.0 Age-related osteoporosis without current pathological fracture; G47.00 Insomnia, unspecified; N40.1 Benign prostatic hyperplasia with lower urinary tract symptoms; Z66 Do not resuscitate; Z11.52 Encounter for screening for COVID-19; Z68.23 Body mass index [BMI] 23.0-23.9, adult; Z87.891 Personal history of nicotine dependence; Z86.73 Personal history of transient ischemic attack (TIA), and cerebral infarction without residual deficits
CPT/HCPCS: 36415; 71045; 76770; 80048; 80053; 81001; 83735; 84100; 84484; 85025; 85027; 87631; 93005; 94640; 94668; 97162; 97166; 97802; 99285; 99406; J7040; A4216; J2405

== ENCOUNTER 2024-11-30 09:01 | Emergency (ER) | payer OTHER, SELFPAY ==
[2024-11-30] VITALS (10 sets, daily range): BP systolic 125–143; BP diastolic 70–91; PULSE 72–92; RESP 22–29; TEMP 36.9; O2SAT 88–96; BMI 23.3
--- NOTE | 2024-11-30 09:27 | EDS_ITS ---
HPI History of Present Illness Chief Complaint: Shortness of Breath [facility] Medical History Marijuana smoker, episodic Epilepsy Muscle wasting and atrophy, not elsewhere classified, back, unspecified level Insomnia Dysphagia Wernickes encephalopathy BPH (benign prostatic hyperplasia) COPD (chronic obstructive pulmonary disease) CKD (chronic kidney disease) Severe protein-calorie malnutrition Flu vaccine need Cerumen impaction Nausea vomiting and diarrhea Change in mental status Anxiety Vitamin D deficiency History of alcohol abuse History of fracture of clavicle History of kidney stones IBS (irritable bowel syndrome) GERD (gastroesophageal reflux disease) Depression Anemia Hypertension Seizure disorder Home Medications ?Medication ?Instructions ?Recorded ?Last Taken ?Type fluoxetine 20 mg capsule 20 mg PO DAILY DEPRESSION #9 0 caps 08/07/20 11/11/23 Rx lamotrigine 150 mg tablet 150 mg PO BID #60 tabs 07/1511/11/23 Rx ondansetron HCl 4 mg tablet 4 mg PO TID PRN nausea and 07/15/21 Unknown Rx vomiting #90 tabs omeprazole 40 mg capsule,delayed 40 mg PO DAILY GERD # 90 caps 07/19/21 11/11/23 Rx release tamsulosin 0.4 mg capsule 0.4 mg PO DAILY@1830 prostat e #180 08/16/21 11/11/23 Rx caps amlodipine 5 mg tablet 5 mg PO DAILY BP #90 tabs 11/11/23 Rx polyethylene glycol 3350 17 17 g PO DAILY PRN constipa tion 01/23/22 Unknown Rx gram/dose oral powder (Miralax) #119 grams memantine 10 mg tablet See Rx Instructions .Route 1 11/11/23 Rx .COMPLEX #56 tabs cyanocobalamin (vitamin B-12) 500 1,000 mcg (2 x 500 m cg) PO 02/01/22 Unknown Rx mcg tablet BREAKFAST #0 tabs folic acid 1 mg tablet 1 mg PO BREAKFAST #0 tabs 11/11/23 Rx levofloxacin 750 mg tablet 750 mg PO Q48H #3 tabs 01/18 09/08 Unknown Rx melatonin 10 mg sublingual tablet 10 mg PO QHS #0 tabs 02/01/22 Unknown Rx polyethylene glycol 3350 17 gram 34 g PO DAILY #0 ea 1 Unknown Rx oral powder packet sennosides 8.6 mg-docusate sodium 1 tab PO BID #0 tabs 02/01/22 Unknown Rx 50 mg tablet (Stool Softener-Stimulant Laxative) thiamine HCl (vitamin B1) 100 mg 100 mg PO BREAKFAST # 0 tabs 02/01/22 Unknown Rx tablet (Vitamin B-1) denosumab 60 mg/mL subcutaneous 60 mg subcut [id number] #1 mL 05/06/22 Unknown Rx syringe (Prolia) buspirone 5 mg tablet 5 mg PO BID not on MAR 01/06 Unknown History mirtazapine 7.5 mg tablet 7.5 mg PO QHS mood 01/06/23 11/11/23 History montelukast 10 mg tablet 10 mg PO QHS breathing 01/0611/11/23 History risperidone 0.5 mg tablet 0.5 mg PO QHS antipsychotic 01/06/23 Unknown History acetaminophen 500 mg tablet 1,000 mg PO .noon PRN feve r or pain 11/12/23 11/11/23 History (Acetaminophen Extra Strength) acetaminophen 500 mg tablet 1,000 mg PO BID pain/ sche duled med 11/12/23 11/11/23 History (Acetaminophen Extra Strength) atorvastatin 20 mg tablet 20 mg PO DAILY cholesterol 0 11/12/23 11/11/23 History clonazepam 0.5 mg tablet 0.5 mg PO BID anxiety 11/11/23 History diclofenac sodium 1 % topical gel 1 ea topical BID art hritis pain 11/12/23 11/11/23 History (Aleve (diclofenac)) guaifenesin 400 mg tablet (Chest 400 mg PO TID PRN yesika st congestion 11/12/23 11/11/23 History Congestion Relief) lidocaine HCl 4 % topical cream 1 applic topical TID P RN pain 11/12/23 11/11/23 History (Aspercreme (lidocaine HCl)) fluticasone propionate 50 1 spray NASAL BID #0 grams 0 11/13/23 Unknown Rx mcg/actuation nasal spray,suspension levofloxacin 750 mg tablet 750 mg PO DAILY 7 days #7 t abs 11/30/24 Unknown Rx Allergy/AdvReac Type Severity Reaction Status Date / Time bupropion HCl (From Allergy SHAKING Verified 11/30/24 09:02 Wellbutrin) quetiapine fumarate (From Allergy Unknown Verified 11/30/24 09:02 Seroquel) trazodone AdvReac SHAKING Verified 11/30/24 09:02 Family History Mother Cancer Breast cancer Hypertension Father Cancer Hypertension Other Anemia Anxiety Depression Osteoporosis Surgical History History of hip surgery History of intestinal surgery History of tonsillectomy Social History household members: none Smoking Status: Former smoker Tobacco: How many years used: 50 alcohol intake: former year quit: 2019 substance use type: marijuana what type of physical activity do you participate in: none EXAM Physical Exam Const Vital Signs: 11/30/24 09:02 11/30/24 09:02 11/30/24 09:05 Temperature 98.5 F 98.5 F Temperature Source Oral Oral Pulse Rate 92 92 Respiratory Rate 22 H 22 H Respiratory Effort Respiratory Pattern Blood Pressure 143/91 H 143/91 H Blood Pressure Mean 108 108 Pulse Ox 88 95 88 Oxygen Delivery Method Room Air Nasal Cannula Room Air Oxygen Flow Rate (L/min) 2 11/30/24 09:08 11/30/24 10:02 11/30/24 11:00 Temperature Temperature Source Pulse Rate 77 73 Respiratory Rate 24 H 29 H Respiratory Effort Normal Respiratory Pattern Tachypnea Blood Pressure 125/85 H Blood Pressure Mean 98 Pulse Ox 96 91 Oxygen Delivery Method Room Air Nasal Cannula Nasal Cannula Oxygen Flow Rate (L/min) 2 11/30/24 12:00 11/30/24 13:00 11/30/24 13:10 Temperature 98.5 F Temperature Source Pulse Rate 72 76 76 Respiratory Rate 24 H 24 H Respiratory Effort Respiratory Pattern Blood Pressure 136/80 H 128/70 H 128/70 H Blood Pressure Mean 98 89 89 Pulse Ox 93 93 Oxygen Delivery Method Nasal Cannula Oxygen Flow Rate (L/min) 2 11/30/24 13:11 11/30/24 14:00 Temperature Temperature Source Pulse Rate Respiratory Rate Respiratory Effort Respiratory Pattern Blood Pressure 128/70 H Blood Pressure Mean 89 Pulse Ox 95 Oxygen Delivery Method Nasal Cannula Oxygen Flow Rate (L/min) 2 MDM MDM MDM Narrative Medical decision making narrative: HISTORY OF PRESENT ILLNESS: Chief complaint: Shortness of breath 79-year-old male history of COPD, CKD, alcoholism, dementia, BPH, pneumonia, IBS, GERD, epilepsy presents with shortness of breath. Per EMS patient was initially 78% on room air. Patient states he has oxygen at home but uses a treadmill instead. Patient notes symptoms began today. Notes slight fever ye sterday. Notes he feels better and symptoms have resolved after being placed on oxygen by EMS. Denies leg swelling. Denies bleeding diathesis. Denies chest pain. The patient denies recent surgery in the last 4 weeks or immobilization in the last 3 days, denies previous diagnosis of DVT or PE, hemoptysis, unilateral leg swelling or malignancy with treatment the last 6 months or palliative. No estrogen use noted. REVIEW OF SYSTEMS: Pertinent positives: Shortness of breath Pertinent negatives: As per HPI PHYSICAL EXAM: Nursing triage notes reviewed, Vital signs reviewed Constitutional: please see [facility] HENT: MMM Eyes: Pupils equal round and reactive to light, Extraocular muscles intact Neck: No stridor, no JVD, full neck ROM Lungs: Clear to auscultation, No wheezing or rales. No increased work of breathing, no conversational dyspnea, no accessory muscle use, no nasal flaring. No respiratory distress noted Heart: Regular rate and rhythm, No murmurs, No rubs and No gallops, 2+ distal pulses (radial, femoral, posterior tibial) in all extremities Abdomen: Soft, there is no tenderness, rigidity, rebound or guarding, no obvious peritoneal signs, no palpable pulsatile abdominal masses, no auscultated abdominal bruit : No CVAT Extremities: No edema Neuro: Alert, oriented to person place and time. no new focal neurological deficits, cranial nerves II through XII intact, 5/5 strength in all present extremities. Intact sensation to light touch in all present extremities, 2+ reflexes bilateral patella tendons. Skin: No rash or lesions noted MEDICAL DECISION MAKING: Chief Complaint: please see HPI External records reviewed: Reviewed echocardiogram from 2018 which showed ejection fraction 65% stage I diastolic dysfunction Factors affecting care: as per HPI History obtained from others: EMS Consults: none [facility] Narrative: The patient was initially hemodynamically stable, tachypneic at rate of 22, saturating 98% on 2 L of oxygen I considered the following differential diagnosis: COPD exacerbation, ACS, arrhythmia, anemia, pneumonia, electrolyte disturbance, PE Considered VTE the patient had a low risk Wells score, was not tachycardic and as such I did not pursue additional labs or images at this time (D-dimer or CTA of the chest) I obtained a broad lab and imaging work to further determine if the patient was suffering from a life-threatening etiology. As the patient was asymptomatic on my initial presentation I do not give any medications. He was not wheezing. He had clear lungs. ALL IMAGES (IF OBTAINED) HAVE BEEN PERSONALLY REVIEWED AND INTERPRETED BY MYSELF. EKG with normal sinus rhythm rate of 76, prolonged interval, first-degree AV block, no sign of high degree block, normal QT interval, no obvious CBC with leukocytosis suggesting systemic inflammation, noted mild anemia that improved from baseline, no thrombocytopenia BMP without evidence of significant electrolyte abnormalities, no anion gap, no acute kidney injury. LFTs show no evidence of hepatobiliary pathology. High-sensitivity troponin is negative, no evidence of myocardial ischemia BNP within normal limit suggesting no heart failure Chest x-ray (read reviewed personally myself) shows RLL infiltrate. Radiologist agrees to my interpretation. The synthesis of the patient's history, physical exam, labs images suggest likely Pneumonia. Will give oral antibiotics. The patient has oxygen at home and which case he does not require admission at this time. His oxygen levels remained acceptable in the low 90s here on 2 L nasal cannula. Implored the patient to use his home oxygen strict return precautions were discussed. The patient and/or family, caregivers express understanding. The patient and/or family, caregivers agrees with the plan. Shared decision making: I will have a discussion with the patient and or visitors regarding risk/benefits of further testing or admission. They will be made aware of of the risk/benefits inherent in this decision they will be given the opportunity to voice understanding. Total critical care time today provided was at least 0 minutes. This excludes separately billable procedures. Critical care time (if documented) is secondary to the patient having high probability of clinically significant/life threatening deterioration in the patient's condition which required my urgent intervention. Impression: 1. Dyspnea 2. History of COPD 3. Community-acquired pneumonia Dispo: Discharge home This note was generated with [employer] dictation software. It may contain incorrect words, spelling, and punctuation that were not noted in review of the chart prior to signing. Lab Data Labs: Laboratory Results - last 24 hr 11/30/24 10:43 WBC 18.8 H RBC 4.38 L Hgb 11.7 L Hct 37.0 L MCV 84.5 MCH 26.7 L MCHC 31.6 L RDW Std Deviation 56.1 H RDW Coeff of Dariela 18.3 H Plt Count 275 MPV 9.5 Immature Gran % (Auto) 0.500 Neut % (Auto) 88.3 H Lymph % (Auto) 4.9 L Rapides % (Auto) 6.0 Eos % (Auto) 0.1 Baso % (Auto) 0.2 Absolute Neuts (auto) 16.6 H Absolute Lymphs (auto) 0.92 Nucleated RBC % 0 Sodium 140 Potassium 3.7 Chloride 100 Carbon Dioxide 25.8 Anion Gap 14 BUN 9 Creatinine 1.10 Estim Creat Clear Calc 47.37 L Est GFR (MDRD) Non-Af 68 BUN/Creatinine Ratio 8.3 L Glucose 131 H Calcium 10.0 Total Bilirubin 0.87 AST 14 ALT 6 Alkaline Phosphatase 81 Troponin T High Sens 13 NT pro BNP II 400 Total Protein 7.6 Albumin 4.4 Globulin 3.1 Albumin/Globulin Ratio 1.4 Radiography Diagnostic Testing: Clinical Impression(s) from Imaging Studies Chest X-Ray 11/30/24 10:02 IMPRESSION: There is mild cardiomegaly with mild central vascular congestion. There is infiltrate in the right lower lung with no focal consolidation. [facility] T[facility] Chief Complaint: Shortness of Breath ED Provider: Ata Cazares Dx/Rx/DC Orders Clinical Impression: Pneumonia Instructions: ED Pneumonia (Adult) Prescriptions: New levofloxacin 750 mg tablet 750 mg PO DAILY 7 Days Qty: 7 0RF No Action fluoxetine 20 mg capsule 20 mg PO DAILY Qty: 90 2RF lamotrigine 150 mg tablet 150 mg PO BID Qty: 60 5RF ondansetron HCl 4 mg tablet 4 mg PO TID PRN (Reason: nausea and vomiting) Qty: 90 5RF amlodipine 5 mg tablet 5 mg PO DAILY Qty: 90 3RF buspirone 5 mg tablet 5 mg PO BID mirtazapine 7.5 mg tablet 7.5 mg PO QHS montelukast 10 mg tablet 10 mg PO QHS risperidone 0.5 mg tablet 0.5 mg PO QHS polyethylene glycol 3350 [Miralax] 17 gram/dose powder 17 g PO DAILY PRN (Reason: constipation) Qty: 119 0RF cyanocobalamin (vitamin B-12) 500 mcg Tablet 1,000 mcg PO BREAKFAST Qty: 0 0RF folic acid 1 mg Tablet 1 mg PO BREAKFAST Qty: 0 0RF melatonin 10 mg Tablet, Sublingual 10 mg PO QHS Qty: 0 0RF polyethylene glycol 3350 17 gram Powder In Packet 34 g PO DAILY Qty: 0 0RF sennosides-docusate sodium [Stool Softener-Stimulant Laxat] 8.6-50 mg Tablet 1 tab PO BID Qty: 0 0RF thiamine HCl (vitamin B1) [Vitamin B-1] 100 mg Tablet 100 mg PO BREAKFAST Qty: 0 0RF levofloxacin 750 mg tablet 750 mg PO Q48H Qty: 3 0RF Rx Instructions: Start 02/03/2022 acetaminophen [Acetaminophen Extra Strength] 500 mg tablet 1,000 mg PO BID atorvastatin 20 mg tablet 20 mg PO DAILY clonazepam 0.5 mg tablet 0.5 mg PO BID diclofenac sodium [Aleve (diclofenac)] 1 % gel 1 ea topical BID Rx Instructions: diclofenac gel 1% apply topically to affected areas lidocaine HCl [Aspercreme (lidocaine HCl)] 4 % cream 1 applic topical TID PRN (Reason: pain) guaifenesin [Chest Congestion Relief] 400 mg tablet 400 mg PO TID PRN (Reason: chest congestion) acetaminophen [Acetaminophen Extra Strength] 500 mg tablet 1,000 mg PO .noon PRN (Reason: fever or pain) Patient Comments: 500mg tablet- take 2 tablets (1000mg total) by mouth daily at noon as needed fluticasone propionate 50 mcg/actuation [place],Suspension 1 spray NASAL BID Qty: 0 0RF omeprazole 40 mg capsule,delayed release(DR/EC) 40 mg PO DAILY Qty: 90 3RF tamsulosin 0.4 mg capsule 0.4 mg PO DAILY@1830 Qty: 180 3RF memantine 10 mg tablet See Rx Instructions .ROUTE .COMPLEX Qty: 56 2RF Dose Instruction: TAKE 1 TABLET BY MOUTH TWICE A DAY Rx Instructions: TAKE 1 TABLET BY MOUTH TWICE A DAY Prolia 60 mg/mL syringe 60 mg subcut [id number] Qty: 1 0RF Primary Care Provider: Shiva Zamarripa Referrals: Shiva Zamarripa MD [Primary Care Provider] - Activity Restrictions/Additional Instructions: Thank you for trusting us with your care today! Your labs images are consistent with pneumonia. Please take antibiotics as until course complete. Please wear your oxygen as previously prescribed. Please take Tylenol (2 pills, 650 mg), ibuprofen (2 pills, 400 mg) every 6 hours as needed for pain and fever control. Please return to the emergency department if your symptoms change or worsen. Please follow with your primary care physician for further outpatient evaluation and management. Print Language: Albanian Disposition Disposition: Home, Self Care Discharge Date/Time: 11/30/24 14:06
--- NOTE | 2024-11-30 10:02 | EKG12_ITS ---
Test Reason : Blood Pressure : */* mmHG Vent. Rate : 76 BPM Atrial Rate : 76 BPM P-R Int : 216 ms QRS Dur : 80 ms QT Int : 362 ms P-R-T Axes : -11 -15 7 degrees QTcB Int : 407 ms Sinus rhythm with 1st degree A-V block with Premature supraventricular complexes Inferior infarct , age undetermined Abnormal ECG When compared with ECG of 11-Nov-2023 21:22, Premature supraventricular complexes are now Present Confirmed by CAROLANN SPRINGER, GRACY ([id number]), development editor ANNAMARIE CORTEZ ([id number]) on 12/06/2024 6:18:04 AM Referred By: Confirmed By: GRACY VUONG MD
--- NOTE | 2024-11-30 10:02 | RAD_ITS ---
PROCEDURE: CHEST 1 VIEW (PORTABLE) 11/30/2024 REASON FOR EXAM: SHORTNESS OF BREATH TECHNIQUE: Frontal view of the chest. COMPARISON: November 11, 2023 FINDINGS: There is mild cardiomegaly with mild central vascular congestion. There is infiltrate in the right lower lung with no focal consolidation. Atelectasis or scar is noted in the right and left lung base, similar to the prior. There is no pneumothorax or effusion. Hardware is noted in the left clavicle, unchanged. Aortic calcifications are visible. RAD/Chest 1 View (Portable) IMPRESSION: There is mild cardiomegaly with mild central vascular congestion. There is infiltrate in the right lower lung with no focal consolidation. Reading Location: [facility]
[2024-11-30 10:53] LABS: Hematocrit 37.0 % (40-54); Hemoglobin 11.7 g/dL (13.0-16.5); Immature Granulocytes Count 0.090 X10^3/uL (0.0-0.0); Mean Corp Hgb Conc 31.6 g/dL (32-36); Mean Corpuscular Volume 84.5 fL (80-94); Mean Platelet Vol. 9.5 fl (6.2-12.0); NRBC Flagged by Analyzer 0 % (0-5); Platelet Count 275 K/mm3 (150-450); RBC Distribution Width CV 18.3 % (11.6-14.6); RBC Distribution Width SD 56.1 fl (35.1-43.9); Red Blood Count 4.38 M/mm3 (4.6-6.2); White Blood Count 18.8 K/mm3 (4.4-11.0)
[2024-11-30 11:27] LABS: AST(SGOT) 14 U/L (<=37); Alanine Aminotransfer ALT/SGPT 6 U/L (<=46); Albumin, Serum 4.4 g/dL (3.4-4.8); Alkaline Phosphatase 81 U/L (40-129); Anion Gap 14 (5-15); BUN 9 mg/dL (4-19); BUN/Creat Ratio 8.3 RATIO (10-20); Calcium,Total 10.0 mg/dL (7.6-11.0); Carbon Dioxide 25.8 mmol/L (21.0-32.0); Chloride 100 mmol/L (98-108); Estimated Creatinine Clearance 47.37 ml/min (50-250); Globulin 3.1 g/dL (2.2-4.2); Glucose 131 mg/dL (70-99); Potassium 3.7 mmol/L (3.3-5.1); Pro- Brain NATRIURETIC PEPTIDE 400 pg/mL (<=1800); Troponin T High Sensitivity 13 ng/L (<=22)
--- NOTE | 2024-11-30 12:16 | ED.RN ---
Report given to nurse at [facility]
--- NOTE | 2024-11-30 13:16 | CM.ED ---
Social Work SW met with patient, introduced self and role with hospital. Patient accepting of visit and starting talking about his life at [facility]. Patient also discussed that he had recently been to the dentist but they only looked at his gums and he was interested in dentures. Patient denied telling the dentist that he wanted dentures, SW encouraged patient to call dentist back and let them know he would like to pursue new teeth. Patient states he has not had dentures in about ten years as he dropped his and they broke. Patient also given a list of dental providers. No further needs identified at this time. Cami Jacinto, POSTPARTUM RN, RESEARCH SOFTWARE ENGINEER
== END 2024-11-30 14:06 | disposition home or self-care (01) ==
PROVIDERS: Emergency Provider Emergency Medicine; PCP Family Medicine; Visit Provider Emergency Medicine
DX: J18.9 Pneumonia, unspecified organism (principal); J44.0 Chronic obstructive pulmonary disease with (acute) lower respiratory infection; Z87.891 Personal history of nicotine dependence
CPT/HCPCS: 71045; 80053; 83880; 84484; 85025; 93005; 99285; A4216

== ENCOUNTER 2024-12-20 08:41 | Inpatient (IN) | payer OTHER, SELFPAY ==
[2024-12-20] VITALS (21 sets, daily range): BP systolic 115–160; BP diastolic 59–122; PULSE 61–97; RESP 16–24; TEMP 36.1–37.7; O2SAT 77–96; BMI 19.2; BMI 18.5
[2024-12-20 09:25] LABS: Hematocrit 36.5 % (40-54); Hemoglobin 11.8 g/dL (13.0-16.5); Immature Granulocytes Count 0.060 X10^3/uL (0.0-0.0); Mean Corp Hgb Conc 32.3 g/dL (32-36); Mean Corpuscular Volume 84.7 fL (80-94); Mean Platelet Vol. 9.9 fl (6.2-12.0); NRBC Flagged by Analyzer 0 % (0-5); Platelet Count 328 K/mm3 (150-450); RBC Distribution Width CV 18.9 % (11.6-14.6); RBC Distribution Width SD 58.3 fl (35.1-43.9); Red Blood Count 4.31 M/mm3 (4.6-6.2); White Blood Count 14.0 K/mm3 (4.4-11.0)
--- NOTE | 2024-12-20 09:49 | CT_ITS ---
PROCEDURE: CTA CHEST W/WO CONTRAST 12/20/2024 REASON FOR EXAM: SOB, NEW OXYGEN REQUIREMENT TECHNIQUE: Procedure Code: [id number] Modality: CT Procedure: CTA CHEST W/WO CONTRAST Multiplanar Sagittal and Coronal images were obtained. 3D post processing was performed CONTRAST: Isovue 370 VOLUME: 100 mL One or more dose reduction techniques were used (e.g., Automated exposure control, adjustment of the mA and/or kV according to patient size, use of iterative reconstruction technique). RADIATION DOSE SUMMARY: CTDlvol: 10.65 mGy DLP: 322.24 mGycm COMPARISON: Prior chest radiographs dated November 30, 2024. FINDINGS: Hardware: None Lymph nodes: None Heart: Coronary artery calcification. Atherosclerotic calcification of the aortic arch and descending thoracic aorta. Mural thrombus in the superior aspect of the aortic arch. Thoracic Aorta: Atherosclerotic calcification of the aortic arch and descending thoracic aorta. Pulmonary Vessels: No evidence of pulmonary embolism. Lungs and Airways: Bibasilar pulmonary infiltrates worse at the left lung base. Patchy infiltrate in the posterior segment of the lingula lobe. Pleura: No significant pleural effusion. Upper Abdomen: Cyst in the upper pole of the right kidney. Nonobstructive tiny calculi in the lower pole of the right kidney. Bones: Increased kyphosis. Demineralization of the thoracic vertebrae with multiple compression fractures. CT/CTA Chest W/WO Contrast IMPRESSION: Bibasilar pulmonary infiltrates. No pulmonary embolism. Increased kyphosis with multiple compression fractions of the visualized thorac ic and upper lumbar spine. Reading Location: [place] [address]
--- NOTE | 2024-12-20 09:51 | EDS_ITS ---
HPI History of Present Illness Chief Complaint: Shortness of Breath Narrative Narrative: Patient is a 79-year-old male presenting to the emergency department for shortness of breath. Patient has an extensive past medical history including COPD, pneumonia, alcoholism, hypertension, failure to thrive. Patient reports that his last alcoholic beverage was about 7 to 8 years ago. He reports that a few days ago he developed shortness of breath and productive cough worse than normal. He denies any fever, chills, sore throat, chest pain. Denies any diaphoresis, nausea or vomiting. Denies history of DVT or PE. Denies recent travel, hospitalizations or surgeries. States that he wears 2 L nasal cannula at baseline. [facility] Medical History Marijuana smoker, episodic Epilepsy Muscle wasting and atrophy, not elsewhere classified, back, unspecified level Insomnia Dysphagia Wernickes encephalopathy BPH (benign prostatic hyperplasia) COPD (chronic obstructive pulmonary disease) CKD (chronic kidney disease) Severe protein-calorie malnutrition Flu vaccine need Cerumen impaction Nausea vomiting and diarrhea Change in mental status Anxiety Vitamin D deficiency History of alcohol abuse History of fracture of clavicle History of kidney stones IBS (irritable bowel syndrome) GERD (gastroesophageal reflux disease) Depression Anemia Hypertension Seizure disorder Home Medications ?Medication ?Instructions ?Recorded ?Last Taken ?Type fluoxetine 20 mg capsule 20 mg PO DAILY DEPRESSION #9 0 caps 08/07/20 11/11/23 Rx lamotrigine 150 mg tablet 150 mg PO BID #60 tabs 07/1511/11/23 Rx ondansetron HCl 4 mg tablet 4 mg PO TID PRN nausea and 07/15/21 Unknown Rx vomiting #90 tabs omeprazole 40 mg capsule,delayed 40 mg PO DAILY GERD # 90 caps 07/19/21 11/11/23 Rx release tamsulosin 0.4 mg capsule 0.4 mg PO DAILY@1830 prostat e #180 08/16/21 11/11/23 Rx caps amlodipine 5 mg tablet 5 mg PO DAILY BP #90 tabs 11/11/23 Rx polyethylene glycol 3350 17 17 g PO DAILY PRN constipa tion 01/23/22 Unknown Rx gram/dose oral powder (Miralax) #119 grams memantine 10 mg tablet See Rx Instructions .Route 1 11/11/23 Rx .COMPLEX #56 tabs cyanocobalamin (vitamin B-12) 500 1,000 mcg (2 x 500 m cg) PO 02/01/22 Unknown Rx mcg tablet BREAKFAST #0 tabs folic acid 1 mg tablet 1 mg PO BREAKFAST #0 tabs 11/11/23 Rx levofloxacin 750 mg tablet 750 mg PO Q48H #3 tabs 01/18 09/08 Unknown Rx melatonin 10 mg sublingual tablet 10 mg PO QHS #0 tabs 02/01/22 Unknown Rx polyethylene glycol 3350 17 gram 34 g PO DAILY #0 ea 1 Unknown Rx oral powder packet sennosides 8.6 mg-docusate sodium 1 tab PO BID #0 tabs 02/01/22 Unknown Rx 50 mg tablet (Stool Softener-Stimulant Laxative) thiamine HCl (vitamin B1) 100 mg 100 mg PO BREAKFAST # 0 tabs 02/01/22 Unknown Rx tablet (Vitamin B-1) denosumab 60 mg/mL subcutaneous 60 mg subcut [id number] #1 mL 05/06/22 Unknown Rx syringe (Prolia) buspirone 5 mg tablet 5 mg PO BID not on MAR 01/06 Unknown History mirtazapine 7.5 mg tablet 7.5 mg PO QHS mood 01/06/23 11/11/23 History montelukast 10 mg tablet 10 mg PO QHS breathing 01/0611/11/23 History risperidone 0.5 mg tablet 0.5 mg PO QHS antipsychotic 01/06/23 Unknown History acetaminophen 500 mg tablet 1,000 mg PO .noon PRN feve r or pain 11/12/23 11/11/23 History (Acetaminophen Extra Strength) acetaminophen 500 mg tablet 1,000 mg PO BID pain/ sche duled med 11/12/23 11/11/23 History (Acetaminophen Extra Strength) atorvastatin 20 mg tablet 20 mg PO DAILY cholesterol 0 11/12/23 11/11/23 History clonazepam 0.5 mg tablet 0.5 mg PO BID anxiety 11/11/23 History diclofenac sodium 1 % topical gel 1 ea topical BID art hritis pain 11/12/23 11/11/23 History (Aleve (diclofenac)) guaifenesin 400 mg tablet (Chest 400 mg PO TID PRN yesika st congestion 11/12/23 11/11/23 History Congestion Relief) lidocaine HCl 4 % topical cream 1 applic topical TID P RN pain 11/12/23 11/11/23 History (Aspercreme (lidocaine HCl)) fluticasone propionate 50 1 spray NASAL BID #0 grams 0 11/13/23 Unknown Rx mcg/actuation nasal spray,suspension levofloxacin 750 mg tablet 750 mg PO DAILY 7 days #7 t abs 11/30/24 Unknown Rx Allergy/AdvReac Type Severity Reaction Status Date / Time bupropion HCl (From Allergy SHAKING Verified 11/30/24 09:02 Wellbutrin) quetiapine fumarate (From Allergy Unknown Verified 11/30/24 09:02 Seroquel) trazodone AdvReac SHAKING Verified 11/30/24 09:02 Family History Mother Cancer Breast cancer Hypertension Father Cancer Hypertension Other Anemia Anxiety Depression Osteoporosis Surgical History History of hip surgery History of intestinal surgery History of tonsillectomy Social History household members: none Smoking Status: Former smoker Tobacco: How many years used: 50 alcohol intake: former year quit: 2019 substance use type: marijuana what type of physical activity do you participate in: none ROS ROS ED ROS Narrative see HPI EXAM Physical Exam Narrative Exam Narrative: Vital signs: Reviewed General: Alert and orientedx3. No acute distress. Chronically ill appearing. HEENT: Head is normocephalic and atraumatic, sinuses nontender, pupils equal round and reactive. Nares are patent. Oropharynx and throat exams normal. Neck: Supple without lymphadenopathy nontender Cardiovascular: Regular rate and rhythm, no murmurs. No rubs or gallops. Normal S1 and S2 Respiratory: Rhonchorous lung sounds in all lung pruett. Worse in the bilateral lower lobes. On 6 L nasal cannula saturating 90%. Abdominal: Soft and nontender. Normal bowel sounds. No guarding or rebound. Nonsurgical abdomen Extremities: No swelling. No tenderness. No bruising. Normal range of motion. Normal sensation. Skin: No rash or redness. Neurological: Cranial nerves II through XII are grossly intact. Normal strength and sensation. Normal cerebellar function The rest of the physical exam is unremarkable Const Vital Signs: 12/20/24 08:40 12/20/24 08:41 12/20/24 08:52 Temperature 98.3 F Temperature Source Oral Pulse Rate 95 94 Respiratory Rate 24 H 18 Respiratory Effort Short of Breath Labored Respiratory Pattern Bradypnea Blood Pressure 160/89 H 138/90 H Blood Pressure Mean 112 106 Pulse Ox 90 93 Oxygen Delivery Method Nasal Cannula Nasal Cannula Nasal Cannula Oxygen Flow Rate (L/min) 6 6 12/20/24 09:10 12/20/24 09:11 Temperature Temperature Source Pulse Rate Respiratory Rate Respiratory Effort Respiratory Pattern Blood Pressure Blood Pressure Mean Pulse Ox 92 92 Oxygen Delivery Method Nasal Cannula Nasal Cannula Oxygen Flow Rate (L/min) 6 6 MDM MDM MDM Narrative Medical decision making narrative: Patient is a 79-year-old male presenting to the emergency department for shortness of breath and productive cough. Patient was seen and examined. On initial triage he was tachypneic at 24. Afebrile. Saturating 90% on 6 L nasal cannula. Baseline is 2 L nasal cannula. Differential includes but is not limited to: Pneumonia, COPD exacerbation, PE CBC with leukocytosis of 14 and chronic anemia of 1.8. Patient given a DuoNeb breathing treatment. CT imaging of the chest ordered to rule out pulmonary embolism. Rocephin azithromycin started for pneumonia coverage. History & Record Review Discussion w/independent historian: Patient Lab Data Attestation: I reviewed the patient's lab results. Labs: Laboratory Results - last 24 hr 12/20/24 09:05 WBC 14.0 H RBC 4.31 L Hgb 11.8 L Hct 36.5 L MCV 84.7 MCH 27.4 MCHC 32.3 RDW Std Deviation 58.3 H RDW Coeff of Dariela 18.9 H Plt Count 328 MPV 9.9 Immature Gran % (Auto) 0.400 Neut % (Auto) 76.7 H Lymph % (Auto) 14.4 L [place] % (Auto) 6.6 Eos % (Auto) 1.6 Baso % (Auto) 0.3 Absolute Neuts (auto) 10.8 H Absolute Lymphs (auto) 2.01 Nucleated RBC % 0 Discharge Plan Triage Chief Complaint: Shortness of Breath ED Provider: Krissy Darden Dx/Rx/DC Orders Prescriptions: No Action fluoxetine 20 mg capsule 20 mg PO DAILY Qty: 90 2RF lamotrigine 150 mg tablet 150 mg PO BID Qty: 60 5RF ondansetron HCl 4 mg tablet 4 mg PO TID PRN (Reason: nausea and vomiting) Qty: 90 5RF amlodipine 5 mg tablet 5 mg PO DAILY Qty: 90 3RF buspirone 5 mg tablet 5 mg PO BID mirtazapine 7.5 mg tablet 7.5 mg PO QHS montelukast 10 mg tablet 10 mg PO QHS risperidone 0.5 mg tablet 0.5 mg PO QHS polyethylene glycol 3350 [Miralax] 17 gram/dose powder 17 g PO DAILY PRN (Reason: constipation) Qty: 119 0RF cyanocobalamin (vitamin B-12) 500 mcg Tablet 1,000 mcg PO BREAKFAST Qty: 0 0RF folic acid 1 mg Tablet 1 mg PO BREAKFAST Qty: 0 0RF melatonin 10 mg Tablet, Sublingual 10 mg PO QHS Qty: 0 0RF polyethylene glycol 3350 17 gram Powder In Packet 34 g PO DAILY Qty: 0 0RF sennosides-docusate sodium [Stool Softener-Stimulant Laxat] 8.6-50 mg Tablet 1 tab PO BID Qty: 0 0RF thiamine HCl (vitamin B1) [Vitamin B-1] 100 mg Tablet 100 mg PO BREAKFAST Qty: 0 0RF levofloxacin 750 mg tablet 750 mg PO Q48H Qty: 3 0RF Rx Instructions: Start 02/03/2022 levofloxacin 750 mg tablet 750 mg PO DAILY 7 Days Qty: 7 0RF acetaminophen [Acetaminophen Extra Strength] 500 mg tablet 1,000 mg PO BID atorvastatin 20 mg tablet 20 mg PO DAILY clonazepam 0.5 mg tablet 0.5 mg PO BID diclofenac sodium [Aleve (diclofenac)] 1 % gel 1 ea topical BID Rx Instructions: diclofenac gel 1% apply topically to affected areas lidocaine HCl [Aspercreme (lidocaine HCl)] 4 % cream 1 applic topical TID PRN (Reason: pain) guaifenesin [Chest Congestion Relief] 400 mg tablet 400 mg PO TID PRN (Reason: chest congestion) acetaminophen [Acetaminophen Extra Strength] 500 mg tablet 1,000 mg PO .noon PRN (Reason: fever or pain) Patient Comments: 500mg tablet- take 2 tablets (1000mg total) by mouth daily at noon as needed fluticasone propionate 50 mcg/actuation [place],Suspension 1 spray NASAL BID Qty: 0 0RF omeprazole 40 mg capsule,delayed release(DR/EC) 40 mg PO DAILY Qty: 90 3RF tamsulosin 0.4 mg capsule 0.4 mg PO DAILY@1830 Qty: 180 3RF memantine 10 mg tablet See Rx Instructions .ROUTE .COMPLEX Qty: 56 2RF Dose Instruction: TAKE 1 TABLET BY MOUTH TWICE A DAY Rx Instructions: TAKE 1 TABLET BY MOUTH TWICE A DAY Prolia 60 mg/mL syringe 60 mg subcut [id number] Qty: 1 0RF Primary Care Provider: Shiva Zamarripa Referrals: Shiva Zamarripa MD [Primary Care Provider] - Print Language: Panamanian
--- NOTE | 2024-12-20 09:51 | ED.VIS.DYS ---
HPI History of Present Illness Chief Complaint: Shortness of Breath Narrative Narrative: Patient is a 79-year-old male presenting to the emergency department for shortness of breath. Patient has an extensive past medical history including COPD, pneumonia, alcoholism, hypertension, failure to thrive. Patient reports that his last alcoholic beverage was about 7 to 8 years ago. He reports that a few days ago he developed shortness of breath and productive cough worse than normal. He denies any fever, chills, sore throat, chest pain. Denies any diaphoresis, nausea or vomiting. Denies history of DVT or PE. Denies recent travel, hospitalizations or surgeries. States that he wears 2 L nasal cannula at baseline. [facility] Medical History Marijuana smoker, episodic Epilepsy Muscle wasting and atrophy, not elsewhere classified, back, unspecified level Insomnia Dysphagia Wernickes encephalopathy BPH (benign prostatic hyperplasia) COPD (chronic obstructive pulmonary disease) CKD (chronic kidney disease) Severe protein-calorie malnutrition Flu vaccine need Cerumen impaction Nausea vomiting and diarrhea Change in mental status Anxiety Vitamin D deficiency History of alcohol abuse History of fracture of clavicle History of kidney stones IBS (irritable bowel syndrome) GERD (gastroesophageal reflux disease) Depression Anemia Hypertension Seizure disorder Home Medications ?Medication ?Instructions ?Recorded ?Last Taken ?Type fluoxetine 20 mg capsule 20 mg PO DAILY DEPRESSION #90 caps 08/07/20 11/11/23 Rx lamotrigine 150 mg tablet 150 mg PO BID #60 tabs 07/15/21 11/11/23 Rx ondansetron HCl 4 mg tablet 4 mg PO TID PRN nausea and 07/15/21 Unknown Rx vomiting #90 tabs omeprazole 40 mg capsule,delayed 40 mg PO DAILY GERD #90 caps 07/19/21 11/11/23 Rx release tamsulosin 0.4 mg capsule 0.4 mg PO DAILY@1830 prostate #180 08/16/21 11/11/23 Rx caps memantine 10 mg tablet See Rx Instructions .Route 01/31/22 11/11/23 Rx .COMPLEX #56 tabs folic acid 1 mg tablet 1 mg PO BREAKFAST #0 tabs 02/01/22 11/11/23 Rx polyethylene glycol 3350 17 gram 34 g PO DAILY #0 ea 02/01/22 Unknown Rx oral powder packet mirtazapine 7.5 mg tablet 15 mg PO QHS mood 01/06/23 11/11/23 History montelukast 10 mg tablet 10 mg PO QHS breathing 01/06/23 11/11/23 History acetaminophen 500 mg tablet 1,000 mg PO .noon PRN fever or pain 11/12/23 11/11/23 History (Acetaminophen Extra Strength) acetaminophen 500 mg tablet 1,000 mg PO BID pain/ scheduled med 11/12/23 11/11/23 History (Acetaminophen Extra Strength) atorvastatin 20 mg tablet 20 mg PO DAILY cholesterol 11/12/23 11/11/23 History clonazepam 0.5 mg tablet 0.5 mg PO Q8H anxiety 11/12/23 11/11/23 History diclofenac sodium 1 % topical gel 1 ea topical BID arthritis pain 11/12/23 11/11/23 History (Aleve (diclofenac)) guaifenesin 400 mg tablet (Chest 400 mg PO TID PRN chest congestion 11/12/23 11/11/23 History Congestion Relief) fluticasone propionate 50 1 spray NASAL BID #0 grams 11/13/23 Unknown Rx mcg/actuation nasal spray,suspension amlodipine 5 mg tablet 10 mg PO DAILY BP 12/20/24 Unknown History Allergy/AdvReac Type Severity Reaction Status Date / Time bupropion HCl (From Allergy SHAKING Verified 11/30/24 09:02 Wellbutrin) quetiapine fumarate (From Allergy Unknown Verified 11/30/24 09:02 Seroquel) trazodone AdvReac SHAKING Verified 11/30/24 09:02 Family History Mother Cancer Breast cancer Hypertension Father Cancer Hypertension Other Anemia Anxiety Depression Osteoporosis Surgical History History of hip surgery History of intestinal surgery History of tonsillectomy Social History (Updated 12/20/24 @ 13:24 by Fabiola Garza) household members: none housing: assisted living facility Smoking Status: Former smoker Tobacco: How many years used: 50 alcohol intake: former year quit: 2019 substance use type: marijuana what type of physical activity do you participate in: none ROS ROS ED ROS Narrative see HPI EXAM Physical Exam Narrative Exam Narrative: Vital signs: Reviewed General: Alert and orientedx3. No acute distress. Chronically ill appearing. HEENT: Head is normocephalic and atraumatic, sinuses nontender, pupils equal round and reactive. Nares are patent. Oropharynx and throat exams normal. Neck: Supple without lymphadenopathy nontender Cardiovascular: Regular rate and rhythm, no murmurs. No rubs or gallops. Normal S1 and S2 Respiratory: Rhonchorous lung sounds in all lung pruett. Worse in the bilateral lower lobes. On 6 L nasal cannula saturating 90%. Abdominal: Soft and nontender. Normal bowel sounds. No guarding or rebound. Nonsurgical abdomen Extremities: No swelling. No tenderness. No bruising. Normal range of motion. Normal sensation. Skin: No rash or redness. Neurological: Cranial nerves II through XII are grossly intact. Normal strength and sensation. Normal cerebellar function The rest of the physical exam is unremarkable Const Vital Signs: 12/20/24 08:40 12/20/24 08:41 12/20/24 08:48 Temperature 98.3 F 97 F L Temperature Source Oral Temporal Pulse Rate 95 94 94 Respiratory Rate 24 H 18 20 H Respiratory Effort Respiratory Pattern Blood Pressure 160/89 H 138/90 H 160/89 H Blood Pressure Mean 112 106 112 Pulse Ox 90 93 93 Oxygen Delivery Method Nasal Cannula Nasal Cannula Nasal Cannula Oxygen Flow Rate (L/min) 6 6 Fraction of Inspired Oxygen (FIO2) 12/20/24 08:52 12/20/24 09:10 12/20/24 09:11 Temperature Temperature Source Pulse Rate Respiratory Rate Respiratory Effort Short of Breath Labored Respiratory Pattern Bradypnea Blood Pressure Blood Pressure Mean Pulse Ox 92 92 Oxygen Delivery Method Nasal Cannula Nasal Cannula Nasal Cannula Oxygen Flow Rate (L/min) 6 6 6 Fraction of Inspired Oxygen (FIO2) 12/20/24 09:48 12/20/24 10:00 12/20/24 10:02 Temperature 97 F L 97.1 F L Temperature Source Temporal Temporal Pulse Rate 87 91 87 Respiratory Rate 21 H 19 H 16 Respiratory Effort Respiratory Pattern Blood Pressure 142/98 H 139/89 H Blood Pressure Mean 112 105 Pulse Ox 93 89 Oxygen Delivery Method Nasal Cannula Nasal Cannula Oxygen Flow Rate (L/min) Fraction of Inspired Oxygen (FIO2) 12/20/24 11:00 12/20/24 11:39 12/20/24 12:00 Temperature 98.3 F 98.3 F Temperature Source Oral Oral Pulse Rate 97 84 Respiratory Rate 22 H 23 H Respiratory Effort Respiratory Pattern Blood Pressure 148/122 H 116/59 L Blood Pressure Mean 130 78 Pulse Ox 86 93 Oxygen Delivery Method Nasal Cannula Airvo Oxygen Flow Rate (L/min) 70 Fraction of Inspired Oxygen (FIO2) 70 12/20/24 12:21 Temperature 98.8 F Temperature Source Pulse Rate 82 Respiratory Rate 21 H Respiratory Effort Respiratory Pattern Blood Pressure 116/59 L Blood Pressure Mean 78 Pulse Ox 92 Oxygen Delivery Method Oxygen Flow Rate (L/min) Fraction of Inspired Oxygen (FIO2) MDM MDM MDM Narrative Medical decision making narrative: Patient is a 79-year-old male presenting to the emergency department for shortness of breath and productive cough. Patient was seen and examined. On initial triage he was tachypneic at 24. Afebrile. Saturating 90% on 6 L nasal cannula. Baseline is 2 L nasal cannula. Differential includes but is not limited to: Pneumonia, COPD exacerbation, PE CBC with leukocytosis of 14 and chronic anemia of 1.8. Patient given a DuoNeb breathing treatment. CT imaging of the chest ordered to rule out pulmonary embolism. Rocephin azithromycin started for pneumonia coverage. Lactate 2.0. Troponin reflex of 17 at 13. No significant delta change. EKG shows normal sinus rhythm with nonspecific ST abnormalities. No dysrhythmia. VBG with no evidence of respiratory acidosis. CTA of the chest shows bibasilar pulmonary infiltrates. No PE. It does show multiple compression fractures of the visualized thoracic and upper lumbar spine. Patient has no complaints of back pain and no back pain on exam. On reevaluation the patient was saturating in the mid 80%'s on 6 L nasal cannula, placed on Airvo. Discussed findings with the patient he is agreeable with admission for treatment of his pneumonia with increased oxygen requirement. Patient admitted to Dr. Simms for further management. Clinical impression: pneumonia Hypoxic respiratory failure History & Record Review Discussion w/independent historian: Patient Lab Data Attestation: I reviewed the patient's lab results. Labs: Laboratory Results - last 24 hr 12/20/24 12/20/24 09:05 11:18 WBC 14.0 H RBC 4.31 L Hgb 11.8 L Hct 36.5 L MCV 84.7 MCH 27.4 MCHC 32.3 RDW Std Deviation 58.3 H RDW Coeff of Dariela 18.9 H Plt Count 328 MPV 9.9 Immature Gran % (Auto) 0.400 Neut % (Auto) 76.7 H Lymph % (Auto) 14.4 L [place] % (Auto) 6.6 Eos % (Auto) 1.6 Baso % (Auto) 0.3 Absolute Neuts (auto) 10.8 H Absolute Lymphs (auto) 2.01 Nucleated RBC % 0 Sodium 142 Potassium 3.5 Chloride 102 Carbon Dioxide 23.7 Anion Gap 16 H BUN 12 Creatinine 1.15 Estim Creat Clear Calc 38.60 L Est GFR (MDRD) Non-Af 65 BUN/Creatinine Ratio 10.1 Glucose 114 H Lactic Acid 2.0 Calcium 9.9 Troponin T High Sens 17 D Troponin T Hi Sens 2 Hr 13 ABG Data ABG results: ABG 12/20/24 12:01 Specimen Type VA Sample Site Not entered O2 % 70.0 VBG pH 7.48 H VBG pO2 46 H VBG HCO3 28 H VBG Total CO2 29 VBG O2 Sat (Calc) 85 H VBG Base Excess 5 H POC Mix VBG pCO2 Pt Tmp 37.4 L O2 Delivery Device Not entered Clinical Comments airvo 50L Radiography Diagnostic Testing: Clinical Impression(s) from Imaging Studies Chest CTA 12/20/24 09:49 IMPRESSION: Bibasilar pulmonary infiltrates. No pulmonary embolism. Increased kyphosis with multiple compression fractions of the visualized thoracic and upper lumbar spine. Reading Location: [facility]--1 Discharge Plan Disposition Disposition: Acute Care Hospital [facility] Discharge Date/Time: 12/20/24 12:47
[2024-12-20 10:00] LABS: Anion Gap 16 (5-15); BUN 12 mg/dL (4-19); BUN/Creat Ratio 10.1 RATIO (10-20); Calcium,Total 9.9 mg/dL (7.6-11.0); Carbon Dioxide 23.7 mmol/L (21.0-32.0); Chloride 102 mmol/L (98-108); Estimated Creatinine Clearance 38.60 ml/min (50-250); Glucose 114 mg/dL (70-99); Potassium 3.5 mmol/L (3.3-5.1); Troponin T High Sensitivity 17 ng/L (<=22)
--- NOTE | 2024-12-20 10:16 | EKG12_ITS ---
Test Reason : SOB Blood Pressure : */* mmHG Vent. Rate : 89 BPM Atrial Rate : 89 BPM P-R Int : 192 ms QRS Dur : 78 ms QT Int : 366 ms P-R-T Axes : 108 -13 19 degrees QTcB Int : 445 ms Normal sinus rhythm Nonspecific ST abnormality Abnormal ECG Confirmed by Cesar Hernandez ([id number]), school photograph editor CITLALY RUIZ ([id number]) on 12/21/2024 8:17:32 AM Referred By: AK/ER Confirmed By: Cesar Hernandez
[2024-12-20] MEDS: Azithromycin 500 MG in 0.9% Normal Saline (250mL Bag) 250 ML 255 MG IV (10:57)
[2024-12-20 12:05] LABS: Troponin T High Sens 2 HR 13 ng/L (<=22)
[2024-12-20 12:06] LABS: Comment airvo 50L; FI02 70.0; SITE Not entered; VBG BASE EXCESS 5 mmol/L (-1.0-3.5); VBG PO2 46 mmHg (25-40); VBG SO2 85 % (50-70); VBG TCO2 29 mmol/L (23-33)
[2024-12-20 15:32] LABS: Troponin T High Sens 4 HR 21 ng/L (<=22)
[2024-12-20] MEDS: 0.9% Saline Lock 10 ML Syringe IV ×2 (15:51→23:09)
[2024-12-20 16:25] LABS: Reflex Lactate? Y
--- NOTE | 2024-12-20 18:57 | PCM.HP.STD ---
HPI - General General Date of Admission: 12/20/24 Date of Service: 12/20/24 Chief Complaint: Shortness of breath HPI Narrative ANA RIVERA, is a 79 M who presents to the emergency room at [facility] with complaints of shortness of breath. Patient is on chronic oxygen at home, he states he uses 2 to 3 L via nasal cannula. Patient lives in assisted living. CTA of the chest showed bibasilar infiltrates, patient's white blood cell count was elevated at 14,000, chemistry profile was unremarkable. Patient required Airvo to maintain his pulse ox above 90%. Patient will be admitted to PCU, he will receive aerosol treatments and IV Solu-Medrol, patient was given IV Rocephin and Zithromax in the emergency room, I have decided to change the patient over to IV Levaquin tomorrow. I had a discussion with the patient regarding his CODE STATUS, he states that if his heart stops or he quits breathing he does not want anything done. Patient appears very cachectic and he does not appear to be taking care of himself, he may require placement in a longterm facility at the time of discharge from the hospital. [facility] Medical History Marijuana smoker, episodic Epilepsy Muscle wasting and atrophy, not elsewhere classified, back, unspecified level Insomnia Dysphagia Wernickes encephalopathy BPH (benign prostatic hyperplasia) COPD (chronic obstructive pulmonary disease) CKD (chronic kidney disease) Severe protein-calorie malnutrition Flu vaccine need Cerumen impaction Nausea vomiting and diarrhea Change in mental status Anxiety Vitamin D deficiency History of alcohol abuse History of fracture of clavicle History of kidney stones IBS (irritable bowel syndrome) GERD (gastroesophageal reflux disease) Depression Anemia Hypertension Seizure disorder Home Medications ?Medication ?Instructions ?Recorded ?Last Taken ?Type fluoxetine 20 mg capsule 20 mg PO DAILY DEPRESSION #90 caps 08/07/20 11/11/23 Rx lamotrigine 150 mg tablet 150 mg PO BID #60 tabs 07/15/21 11/11/23 Rx ondansetron HCl 4 mg tablet 4 mg PO TID PRN nausea and 07/15/21 Unknown Rx vomiting #90 tabs omeprazole 40 mg capsule,delayed 40 mg PO DAILY GERD #90 caps 07/19/21 11/11/23 Rx release tamsulosin 0.4 mg capsule 0.4 mg PO DAILY@1830 prostate #180 08/16/21 11/11/23 Rx caps memantine 10 mg tablet See Rx Instructions .Route 01/31/22 11/11/23 Rx .COMPLEX #56 tabs folic acid 1 mg tablet 1 mg PO BREAKFAST #0 tabs 02/01/22 11/11/23 Rx polyethylene glycol 3350 17 gram 34 g PO DAILY #0 ea 02/01/22 Unknown Rx oral powder packet mirtazapine 7.5 mg tablet 15 mg PO QHS mood 01/06/23 11/11/23 History montelukast 10 mg tablet 10 mg PO QHS breathing 01/06/23 11/11/23 History acetaminophen 500 mg tablet 1,000 mg PO .noon PRN fever or pain 11/12/23 11/11/23 History (Acetaminophen Extra Strength) acetaminophen 500 mg tablet 1,000 mg PO BID pain/ scheduled med 11/12/23 11/11/23 History (Acetaminophen Extra Strength) atorvastatin 20 mg tablet 20 mg PO DAILY cholesterol 11/12/23 11/11/23 History clonazepam 0.5 mg tablet 0.5 mg PO Q8H anxiety 11/12/23 11/11/23 History diclofenac sodium 1 % topical gel 1 ea topical BID arthritis pain 11/12/23 11/11/23 History (Aleve (diclofenac)) guaifenesin 400 mg tablet (Chest 400 mg PO TID PRN chest congestion 11/12/23 11/11/23 History Congestion Relief) fluticasone propionate 50 1 spray NASAL BID #0 grams 11/13/23 Unknown Rx mcg/actuation nasal spray,suspension amlodipine 5 mg tablet 10 mg PO DAILY BP 12/20/24 Unknown History Allergy/AdvReac Type Severity Reaction Status Date / Time bupropion HCl (From Allergy SHAKING Verified 11/30/24 09:02 Wellbutrin) quetiapine fumarate (From Allergy Unknown Verified 11/30/24 09:02 Seroquel) trazodone AdvReac SHAKING Verified 11/30/24 09:02 Family History Mother Cancer Breast cancer Hypertension Father Cancer Hypertension Other Anemia Anxiety Depression Osteoporosis Surgical History History of hip surgery History of intestinal surgery History of tonsillectomy Social History (Updated 12/20/24 @ 13:24 by Fabiola Garza) household members: none housing: assisted living facility Smoking Status: Former smoker Tobacco: How many years used: 50 alcohol intake: former year quit: 2019 substance use type: marijuana what type of physical activity do you participate in: none ROS Constitutional Constitutional: Reports change in weight and weakness; Denies anorexia, fever(s) or night sweats Eyes Eyes: Denies blurry vision, change in vision, discharge from eye(s) or eye pain Cardiovascular Cardiovascular: Denies chest pain, claudication, edema or palpitations Respiratory/Chest Respiratory/Chest: Reports dyspnea, shortness of breath at rest and shortness of breath with exertion; Denies cough or hemoptysis Gastrointestinal Gastrointestinal: Denies abdominal pain, constipation, diarrhea, hematemesis, hematochezia, melena, nausea or vomiting Genitourinary Genitourinary: Denies dysuria, hematuria, urinary frequency, urinary hesitancy, urinary incontinence or urinary urgency Musculoskeletal Musculoskeletal: Denies back pain, joint pain, joint stiffness, joint swelling, myalgias or neck pain Neurologic Neurologic: Denies abnormal gait, abnormal speech, dizziness, focal weakness, headache(s), loss of vision, numbness, other visual disturbances, paresthesias, syncope or tingling Psychiatric Psychiatric: Denies anxiety, cognitive impairment, depression, irritability, mood swings or suicidal ideation Endocrine Endocrinology: Denies change in body appearance, cold intolerance, excessive sweating, heat intolerance, polydipsia or polyuria Hematologic/Lymphatic Hematologic/Lymphatic: Denies none, anemia, easy bleeding, easy bruising or lymphadenopathy Allergic/Immunologic Allergic/Immunologic: Denies rhinitis, urticaria, eczemia or asthma Vital Signs Vital Signs Vital Signs: 12/20/24 08:40 12/20/24 08:41 12/20/24 08:48 Temperature 98.3 F 97 F L Temperature Source Oral Temporal Pulse Rate 95 94 94 Respiratory Rate 24 H 18 20 H Respiratory Effort Respiratory Depth Respiratory Pattern Blood Pressure 160/89 H 138/90 H 160/89 H Blood Pressure Mean 112 106 112 Pulse Ox 90 93 93 Oxygen Delivery Method Nasal Cannula Nasal Cannula Nasal Cannula Oxygen Flow Rate (L/min) 6 6 Fraction of Inspired Oxygen (FIO2) 12/20/24 08:52 12/20/24 09:10 12/20/24 09:11 Temperature Temperature Source Pulse Rate Respiratory Rate Respiratory Effort Short of Breath Labored Respiratory Depth Respiratory Pattern Bradypnea Blood Pressure Blood Pressure Mean Pulse Ox 92 92 Oxygen Delivery Method Nasal Cannula Nasal Cannula Nasal Cannula Oxygen Flow Rate (L/min) 6 6 6 Fraction of Inspired Oxygen (FIO2) 12/20/24 09:48 12/20/24 10:00 12/20/24 10:02 Temperature 97 F L 97.1 F L Temperature Source Temporal Temporal Pulse Rate 87 91 87 Respiratory Rate 21 H 19 H 16 Respiratory Effort Respiratory Depth Respiratory Pattern Blood Pressure 142/98 H 139/89 H Blood Pressure Mean 112 105 Pulse Ox 93 89 Oxygen Delivery Method Nasal Cannula Nasal Cannula Oxygen Flow Rate (L/min) Fraction of Inspired Oxygen (FIO2) 12/20/24 11:00 12/20/24 11:39 12/20/24 12:00 Temperature 98.3 F 98.3 F Temperature Source Oral Oral Pulse Rate 97 84 Respiratory Rate 22 H 23 H Respiratory Effort Respiratory Depth Respiratory Pattern Blood Pressure 148/122 H 116/59 L Blood Pressure Mean 130 78 Pulse Ox 86 93 Oxygen Delivery Method Nasal Cannula Airvo Oxygen Flow Rate (L/min) 70 Fraction of Inspired Oxygen (FIO2) 70 12/20/24 12:21 12/20/24 13:29 12/20/24 13:33 Temperature 98.8 F 100 F H Temperature Source Oral Pulse Rate 82 96 Respiratory Rate 21 H 20 H Respiratory Effort Non-Labored Respiratory Depth Normal Respiratory Pattern Tachypnea Blood Pressure 116/59 L 130/71 H Blood Pressure Mean 78 90 Pulse Ox 92 92 Oxygen Delivery Method Airvo Airvo Oxygen Flow Rate (L/min) 50 50 Fraction of Inspired Oxygen (FIO2) 70 70 12/20/24 14:40 12/20/24 14:40 12/20/24 15:00 Temperature 99.1 F Temperature Source Oral Pulse Rate 88 Respiratory Rate 16 Respiratory Effort Respiratory Depth Respiratory Pattern Normal Blood Pressure Blood Pressure Mean Pulse Ox 92 93 77 Oxygen Delivery Method Airvo Room Air Oxygen Flow Rate (L/min) 50 Fraction of Inspired Oxygen (FIO2) 70 70 12/20/24 15:04 Temperature Temperature Source Pulse Rate Respiratory Rate Respiratory Effort Respiratory Depth Respiratory Pattern Blood Pressure Blood Pressure Mean Pulse Ox 90 Oxygen Delivery Method Airvo Oxygen Flow Rate (L/min) Fraction of Inspired Oxygen (FIO2) Weight Weight: 50.53 kg Body Mass Index (BMI) 18.5 Physical Exam Const alert, oriented x3 and no apparent distress Constitutional Narrative: Patient is cachectic appearing and older than his stated age General Appearance: cooperative and well developed Orientation / Consciousness: awake, oriented to person, oriented to place and oriented to time HEENT normocephalic, head/scalp atraumatic and moist oral mucous membranes HEENT Narrative: Patient is hard of hearing Eyes PERRL, EOMs intact bilaterally and conjunctivae normal Neck supple, no JVD, thyroid normal and no carotid bruits General: trachea midline Resp normal respiratory effort and no retractions Resp Narrative: Patient has expiratory rhonchi scattered over both lungs Auscultation: rhonchi throughout; Negative for rales or wheezes Cardio regular rate, regular rhythm, S1 normal heart sound, S2 normal heart sound, no murmurs, no rub and no gallops GI normal to inspection, nondistended, normoactive bowel sounds, soft to palpation, non-tender and non-distended Extremity no clubbing, cyanosis or edema Skin no rashes or lesions noted General Skin Exam: no breakdown Neuro oriented x3, CN's II-XII intact bilaterally, no focal motor deficits and no sensory deficits noted Sensorium / Orientation: awake and alert Speech: speech normal Psych affect normal Results Lab / Micro Data 12/21/24 05:00 12/21/24 05:00 Labs: Laboratory Results - last 24 hr 12/20/24 09:05: WBC 14.0 H, RBC 4.31 L, Hgb 11.8 L, Hct 36.5 L, MCV 84.7, MCH 27.4, MCHC 32.3, RDW Std Deviation 58.3 H, RDW Coeff of Dariela 18.9 H, Plt Count 328, MPV 9.9, Immature Gran % (Auto) 0.400, Neut % (Auto) 76.7 H, Lymph % (Auto) 14.4 L, [place] % (Auto) 6.6, Eos % (Auto) 1.6, Baso % (Auto) 0.3, Absolute Neuts (auto) 10.8 H, Absolute Lymphs (auto) 2.01, Nucleated RBC % 0, Sodium 142, Potassium 3.5, Chloride 102, Carbon Dioxide 23.7, Anion Gap 16 H, BUN 12, Creatinine 1.15, Estim Creat Clear Calc 38.60 L, Est GFR (MDRD) Non-Af 65, BUN/Creatinine Ratio 10.1, Glucose 114 H, Lactic Acid 2.0, Calcium 9.9, Troponin T High Sens 17 D 12/20/24 11:18: Troponin T Hi Sens 2 Hr 13 12/20/24 14:43: Troponin T Hi Sens 4Hr 21 12/20/24 16:54: Lactic Acid 1.7 Micro: Microbiology 12/20/24 14:34 Mucosa - Nasopharyngeal Respiratory Panel (PCR) - Final 12/20/24 12:25 Mucosa - Nose SARS-CoV-2, Influenza & RSV (PCR) - Final ABG Data ABG results: ABG 12/20/24 12:01 Specimen Type VA Sample Site Not entered O2 % 70.0 VBG pH 7.48 H VBG pO2 46 H VBG HCO3 28 H VBG Total CO2 29 VBG O2 Sat (Calc) 85 H VBG Base Excess 5 H POC Mix VBG pCO2 Pt Tmp 37.4 L O2 Delivery Device Not entered Clinical Comments airvo 50L Imaging Radiology Impression Chest CTA 12/20/24 09:49 IMPRESSION: Bibasilar pulmonary infiltrates. No pulmonary embolism. Increased kyphosis with multiple compression fractions of the visualized thoracic and upper lumbar spine. Reading Location: [facility] Assessment & Plan Assessment/Plan (1) History of COPD: PLAN: Plan 1. Acute on chronic hypoxic respiratory failure secondary to pneumonia and severe COPD-patient will be admitted to PCU, aerosol treatments will be administered, pulse ox will be monitored #2 bibasilar pneumonia-patient will be started on IV Levaquin tomorrow, he received IV Zithromax and Rocephin in the emergency room #3 failure to thrive/vhty-cfqhdmv-I suspect the patient has lost quite a bit of weight, the timeframe is unknown at this time patient is not a good informant, nutritional services will see the patient, he may need short-term placement in a longterm facility. #4 chronic depression-patient is on Prozac and lamotrigine #5 essential hypertension-patient is on Norvasc #6 hyperlipidemia-patient is on Lipitor Total clinical time spent by myself addressing the patient's medical issues, reviewing all of his data, and collaborating with patient's care team: 75 minutes Charges/Coding Visit Charges Inpatient E&M: 68572 Init Hosp L3
[2024-12-20] MEDS: Memantine Hydrochloride 10 MG Tablet PO (20:50)
[2024-12-20] MEDS: Heparin Injection (Vial) 5,000 UNIT/ML VIAL 5000 UNIT SC (20:52)
[2024-12-21] VITALS (14 sets, daily range): BP systolic 101–150; BP diastolic 63–86; PULSE 56–89; RESP 18–24; TEMP 36.2–36.8; O2SAT 87–97
[2024-12-21] MEDS: 0.9% Saline Lock 10 ML Syringe IV ×3 (05:09→22:17)
[2024-12-21 06:02] LABS: Hematocrit 31.1 % (40-54); Hemoglobin 10.1 g/dL (13.0-16.5); Immature Granulocytes Count 0.080 X10^3/uL (0.0-0.0); Mean Corp Hgb Conc 32.5 g/dL (32-36); Mean Corpuscular Volume 84.5 fL (80-94); Mean Platelet Vol. 10.8 fl (6.2-12.0); NRBC Flagged by Analyzer 0 % (0-5); POSITIVE MORPHOLOGY YES; Platelet Count 256 K/mm3 (150-450); RBC Distribution Width CV 19.4 % (11.6-14.6); RBC Distribution Width SD 59.9 fl (35.1-43.9); Red Blood Count 3.68 M/mm3 (4.6-6.2); White Blood Count 14.7 K/mm3 (4.4-11.0)
[2024-12-21 06:04] LABS: Differential Indicated SCAN CRITERIA MET
[2024-12-21 06:31] LABS: Anion Gap 13 (5-15); BUN 16 mg/dL (4-19); BUN/Creat Ratio 14.1 RATIO (10-20); Calcium,Total 9.3 mg/dL (7.6-11.0); Carbon Dioxide 25.4 mmol/L (21.0-32.0); Chloride 104 mmol/L (98-108); Estimated Creatinine Clearance 38.92 ml/min (50-250); Glucose 144 mg/dL (70-99); Potassium 4.1 mmol/L (3.3-5.1)
[2024-12-21 07:35] LABS: Neutrophil-Band 2 % (0-5); Neutrophil-Segmented 83 % (47-70); Total Cells Counted 100 (MANUAL DIFF)
[2024-12-21 07:37] LABS: Reactive Lymphocyte RARE
[2024-12-21 07:40] LABS: Differential Comment SCANNED
[2024-12-21 07:43] LABS: Scan Smear per Review Criteria MANUAL DIFF
[2024-12-21] MEDS: Memantine Hydrochloride 10 MG Tablet PO ×2 (08:57→22:07)
[2024-12-21] MEDS: Heparin Injection (Vial) 5,000 UNIT/ML VIAL 5000 UNIT SC ×2 (08:58→22:14)
[2024-12-21] MEDS: Polyethylene Glycol 3350 17 GM PACKET 34 GM PO (08:58)
--- NOTE | 2024-12-21 09:00 | CASEMGMT ---
Social Work Phone call to [facility] and notified the coverage team of pt's admission. Pt has services through [facility] and Suzette Ferrer is pt's CM. APOORVA to notify Suzette at time of dc. JEFFERSON Buckley
[2024-12-21] MEDS: Fluticasone 0.05% 1 SPRAY NASAL.SRY NASAL (09:08)
[2024-12-21] MEDS: levoFLOXacin IV 750 MG/150 ML BAG 100 MG IV (09:09)
--- NOTE | 2024-12-21 11:36 | CASEMGMT ---
Discharge Planning A list of?SNF providers including quality and resource use data and consistent with the patient's preferred geographic region, medical needs, and insurance network (MCR) was created in [employer] Guide.? This list was provided to the Hawa Brown Discharge Planning Asst.
--- NOTE | 2024-12-21 12:54 | CASEMGMT ---
Social Work This APOORVA and APOORVA Lopez met with pt to discuss plans. Pt states he lives at the [facility]. Pt states they do not provide a lot of assistance. They do help with medications. Pt states he cooks his own meals and does not go to the dining room. SW addressed concerns with pt getting enough to eat and pt states he has difficulty eating due to no teeth and no dentures. Pt reports to have gone to a dentist over a year ago for xrays but nothing came of it. Pt states he has an oxygen concentrator but does not use it and pt does not know what company his oxygen is supplied through. Pt states that he plans to return to [facility] at time of discharge and does not want to go to SNF. Pt states he was at [facility] previously. Pt has not yet had therapy. APOORVA will continue to follow for dc planning. JEFFERSON Buckley
--- NOTE | 2024-12-21 14:48 | CHAPLAIN ---
Type of Pastoral Visit _x__ Initial Visit ___ Follow-up Visit ___ On-call Visit ___ General Patient Visit ___ Spiritual Assessment ___ Family Conference ___ Bereavement ___ Rapid Response ___ Code Blue ___ Other (describe below) Pastoral Care Referral From _x__ Patient ___ Family ___ Nurse ___ Physician ___ Mail Officer ___ Plant Operations Worker ___ Other (describe below) Sacrament/Intervention _x__ Active listening ___ Anointing ___ Lutheran ___ Bereavement ___ Communion _x__ Chinyere exploration ___ _x__ Life review _x__ Prayer ___ Reconciliation ___ Sacrament of Sick _x__ Supportive presence ___ Wedding ___ Other (describe below) Pastoral Comments patient is welcoming and turns the TV to mute; pt speaks of his desire to go home and wished I didn't say yes to come to the hospital stating that he doesn't like crowds and being out much; pt refers to his living situation at the residence; pt uses humor to make conversations; pt has limited family support and does not get out much; pt has very limited support from a small family or friends unit; pt asks several questions concerning the bible, beliefs, and heaven; prayer given
--- NOTE | 2024-12-21 16:33 | CASEMGMT ---
Addendum entered by Hawa Brown 12/22/24 10:22: Fax confirmation rec'd. Addendum entered by Hawa Brwon 12/22/24 09:11: Updated clinicals, including therapy evals, sent to [facility]. Original Note: Discharge Planning Updates faxed to [facility], attn; Zoe or Francine. Fax confirmation rec'd. aHwa Brown DC Planning Asst.
--- NOTE | 2024-12-21 17:54 | PN.HOSP_ITS ---
Reason for Visit Chief Complaint: Shortness of breath Subjective Subjective Patient was seen and examined today, he remains on Airvo, white blood cell count was elevated today at 14.7, hemoglobin was 10.1. Objective Data Objective Data Vital Signs: Vital Signs Temp Pulse Resp BP Pulse Ox O2 Del Method O2 Flow Rate 98.1 F 76 18 101/63 91 Nasal Cannula 15 12/21/24 16:30 12/21/24 16:30 12/21/24 16:30 12/21/24 16:30 12/21/24 16:30 12/21/24 16:41 12/21/24 16:41 FiO2 80 12/21/24 12:38 Oxygen Flow Rate (L/min) 15 Oxygen Delivery Method Nasal Cannula Weight: 50.53 kg Body Mass Index (BMI) 18.5 Intake & Output: Intake and Output for Last 24 Hours 12/19/24 12/20/24 12/21/24 23:59 23:59 23:59 Intake Total 845 / 845 770 / 770 Output Total 100 / 100 Balance 845 / 845 670 / 670 Lab / Micro Data 12/21/24 05:00 12/21/24 05:00 Labs: Laboratory Results - last 24 hr 12/20/24 16:54: Lactic Acid 1.7 12/21/24 05:00: WBC 14.7 H, RBC 3.68 L, Hgb 10.1 L, Hct 31.1 L, MCV 84.5, MCH 27.4, MCHC 32.5, RDW Std Deviation 59.9 H, RDW Coeff of Dariela 19.4 H, Plt Count 256, MPV 10.8, Immature Gran % (Auto) INTERMEDIATE FRAME TENDER, Neut % (Auto) INTERMEDIATE FRAME TENDER, Lymph % (Auto) INTERMEDIATE FRAME TENDER, Travis % (Auto) INTERMEDIATE FRAME TENDER, Eos % (Auto) INTERMEDIATE FRAME TENDER, Baso % (Auto) INTERMEDIATE FRAME TENDER, Absolute Neuts (auto) 12.5 H, Absolute Lymphs (auto) 1.47, Total Counted 100, Neutrophils % (Manual) 83 H, Band Neutrophils % 2, Lymphocytes % (Manual) 10 L, Metamyelocytes % 5 H, Nucleated RBC % 0, Differential Comment SCANNED, Diff Path Review May foll, Reactive Lymphocytes RARE, Platelet Estimate ADEQUATE, Sodium 143, Potassium 4.1, Chloride 104, Carbon Dioxide 25.4, Anion Gap 13, BUN 16, Creatinine 1.10, E stim Creat Clear Calc 38.92 L, Est GFR (MDRD) Non-Af 68, BUN/Creatinine Ratio 14.1, Glucose 144 H, Calcium 9.3 Micro: Microbiology 12/21/24 09:00 Sputum, Expectorated/Coughed Gram Stain - Final 12/21/24 04:15 Urine, Random Legionella Antigen - Final 12/21/24 04:15 Urine, Random Streptococcus pneumoniae Antigen (M - Final 12/20/24 14:34 Mucosa - Nasopharyngeal Respiratory Panel (PCR) - Final 12/20/24 12:25 Mucosa - Nose SARS-CoV-2, Influenza & RSV (PCR) - Final Physical Exam Narrative alert, oriented x3 and no apparent distress Constitutional Narrative: Patient is cachectic appearing and older than his stated age General Appearance: cooperative and well developed Orientation / Consciousness: awake, oriented to person, oriented to place and oriented to time HEENT normocephalic, head/scalp atraumatic and moist oral mucous membranes HEENT Narrative: Patient is hard of hearing Eyes PERRL, EOMs intact bilaterally and conjunctivae normal Neck supple, no JVD, thyroid normal and no carotid bruits General: trachea midline Resp normal respiratory effort and no retractions Resp Narrative: Patient has expiratory rhonchi scattered over both lungs Auscultation: rhonchi throughout; Negative for rales or wheezes Cardio regular rate, regular rhythm, S1 normal heart sound, S2 normal heart sound, no murmurs, no rub and no gallops GI normal to inspection, nondistended, normoactive bowel sounds, soft to palpation, non-tender and non-distended Extremity no clubbing, cyanosis or edema Skin no rashes or lesions noted General Skin Exam: no breakdown Neuro oriented x3, CN's II-XII intact bilaterally, no focal motor deficits and no sensory deficits noted Sensorium / Orientation: awake and alert Speech: speech normal Psych affect normal Assessment & Plan Assessment/Plan (1) Adult failure to thrive: (2) History of COPD: PLAN: Plan 1. Acute on chronic hypoxic respiratory failure secondary to pneumonia and severe COPD-continue aerosol treatments and IV Solu-Medrol, pulse ox will be monitored #2 bibasilar pneumonia-patient is currently on IV Levaquin #3 failure to thrive/xice-kilktat-Q suspect the patient has lost quite a bit of weight, the timeframe is unknown at this time patient is not a good informant, nutritional services will see the patient, he may need short-term placement in a group home facility. #4 chronic depression-patient is on Prozac and lamotrigine #5 essential hypertension-patient is on Norvasc #6 hyperlipidemia-patient is on Lipitor Total clinical time spent by myself addressing the patient's medical issues, reviewing all of his data, and collaborating with patient's care team: 35 minutes Charges/Coding Visit Charges Inpatient E&M: 65632 Subs Hosp L2
[2024-12-21] MEDS: Ensure Plus High Protein 120 ML LIQUID PO ×2 (18:12→22:04)
[2024-12-22] VITALS (18 sets, daily range): BP systolic 108–133; BP diastolic 65–93; PULSE 62–94; RESP 14–50; TEMP 36.3–36.9; O2SAT 86–98
[2024-12-22] MEDS: 0.9% Saline Lock 10 ML Syringe IV ×3 (05:32→20:55)
[2024-12-22] MEDS: Polyethylene Glycol 3350 17 GM PACKET 34 GM PO (10:48)
[2024-12-22] MEDS: Heparin Injection (Vial) 5,000 UNIT/ML VIAL 5000 UNIT SC ×2 (10:49→21:09)
[2024-12-22] MEDS: Fluticasone 0.05% 1 SPRAY NASAL.SRY NASAL ×2 (10:49→21:09)
[2024-12-22] MEDS: Memantine Hydrochloride 10 MG Tablet PO ×2 (10:49→21:09)
[2024-12-22] MEDS: Ensure Plus High Protein 120 ML LIQUID PO ×3 (10:49→18:16)
--- NOTE | 2024-12-22 11:45 | CASEMGMT ---
Social Work VM left with pt Direction Manager Voice Suzette Nabil to inquire about getting pt dentures. Pt indicates that he has lost weight as he does not have teeth or dentures and has difficulty with chewing some foods. JEFFERSON Dang
--- NOTE | 2024-12-22 14:17 | ECHOD_ITS ---
Reason For Study Reason For Study: SOB Procedure This was a 2D Doppler, Color Flow transthoracic echocardiogram. The study was technically difficult. Patient scanned sitting up due to SOB. Exam performed portable in patient room. Left Ventricle Normal LV size. The estimated ejection fraction is 65 %. Diastolic function is indeterminate. No regional wall motion abnormalities noted. Right Ventricle Normal RV size. Normal systolic function. Atria The left and right atria are normal. No doppler evidence for ASD. Mitral Valve There is no mitral valve stenosis. No mitral valve insufficiency. Tricuspid Valve There is no tricuspid stenosis. No tricuspid valve insufficiency. Aortic Valve Trisinus/trileaflet aortic valve. Aortic sclerosis, no stenosis. There is no aortic stenosis. No aortic valve insufficiency. Pulmonic Valve There is no pulmonic valvular stenosis. No pulmonic valve insufficiency. Great Vessels Normal sized aortic root. Pericardium/Pleural No pericardial effusion. MMode/2D Measurements & Calculations LVIDd: 3.2 cm IVSd: 1.4 cm Ao root diam: 3.2 cm LVIDs: 2.1 cm LVPWd: 1.4 cm RVDd: 3.9 cm FS: 35.6 % LVAd ap4: 22.7 cm2 SV(MOD-sp4): 38.0 ml SV(sp4-el): 40.3 ml LVLd ap4: 7.2 cm SI(MOD-sp4): 24.6 ml/m2 EDV(MOD-sp4): 59.1 ml EDV(sp4-el): 60.7 ml LVAs ap4: 12.3 cm2 LVLs ap4: 6.3 cm ESV(MOD-sp4): 21.1 ml ESV(sp4-el): 20.4 ml EF(MOD-sp4): 64.2 % EF(sp4-el): 66.4 % LA dimension(2D): 1.9 cm Doppler Measurements & Calculations MV E max rober: 69.4 cm/sec Lat Peak E' Rober: 3.8 cm/sec Med Peak E' Rober: 5.2 cm/sec MV A max rober: 94.0 cm/sec E/E' lat: 18.4 E/E' med: 13.3 MV E/A: 0.74 LV V1 max: 117.2 cm/sec PA V2 max: 113.1 cm/sec LV V1 max P.5 mmHg ECHO/Echo Complete Interpretation Summary The estimated ejection fraction is 65 %. Diastolic function is indeterminate. Ordering Physician: Scooby Simms Referring Physician: Shiva Zamarripa Performed By: Palmira Romero RDCS
--- NOTE | 2024-12-22 14:22 | RAD_ITS ---
PROCEDURE: CHEST 1 VIEW (PORTABLE) 12/22/2024 REASON FOR EXAM: SOB TECHNIQUE: Frontal view of the chest. COMPARISON: 11/30/2022 FINDINGS: Hardware: None. Heart: Heart size is mildly enlarged. Lungs: Bibasilar airspace opacities and atelectasis. Mild pulmonary vascular congestion. Bones: ORIF of the left clavicle. RAD/Chest 1 View (Portable) IMPRESSION: 1. Bibasilar airspace opacities and atelectasis. 2. Mild cardiomegaly and mild pulmonary vascular congestion. Reading [facility]
--- NOTE | 2024-12-22 18:56 | PN.HOSP_ITS ---
Reason for Visit Chief Complaint: Shortness of breath Subjective Subjective Patient was seen and examined today, he remains on Airvo, he was briefly on 15 L of nasal cannula oxygen today but had to be transitioned back over to Airvo. Chest x-ray was obtained today shows some vascular congestion, I elected to place patient on IV Lasix to see if this would help his oxygenation. Patient's respiratory culture grew out a gram-negative lactose cage/vault supervisor, it has yet to be identified however, I have elected to keep patient on IV Levaquin. Objective Data Objective Data Vital Signs: Vital Signs Temp Pulse Resp BP Pulse Ox O2 Del Method O2 Flow Rate 97.9 F 79 18 119/72 92 Airvo 45 12/22/24 16:18 12/22/24 16:18 12/22/24 16:18 12/22/24 16:18 12/22/24 16:18 12/22/24 16:18 12/22/24 13:32 FiO2 80 12/22/24 13:34 Oxygen Flow Rate (L/min) 45 Oxygen Delivery Method Airvo Weight: 50.53 kg Body Mass Index (BMI) 18.5 Intake & Output: Intake and Output for Last 24 Hours 12/20/24 12/21/24 12/22/24 23:59 23:59 23:59 Intake Total 845 / 845 1245 / 1365 1115 / 1115 Output Total 300 / 300 250 / 250 Balance 845 / 845 945 / 1065 865 / 865 Lab / Micro Data 12/23/24 04:58 12/23/24 04:58 Micro: Microbiology 12/21/24 09:00 Sputum, Expectorated/Coughed Gram Stain - Final 12/21/24 09:00 Sputum, Expectorated/Coughed Respiratory Culture - Preliminary GNR lactose cage/vault supervisor 12/21/24 04:15 Urine, Random Legionella Antigen - Final 12/21/24 04:15 Urine, Random Streptococcus pneumoniae Antigen (M - Final 12/20/24 14:34 Mucosa - Nasopharyngeal Respiratory Panel (PCR) - Final 12/20/24 12:25 Mucosa - Nose SARS-CoV-2, Influenza & RSV (PCR) - Final Radiography Diagnostic Testing: Radiology Impression Chest X-Ray 12/22/24 14:22 IMPRESSION: 1. Bibasilar airspace opacities and atelectasis. 2. Mild cardiomegaly and mild pulmonary vascular congestion. Reading Location: [facility] Physical Exam Narrative alert, oriented x3 and no apparent distress Constitutional Narrative: Patient is cachectic appearing and older than his stated age General Appearance: cooperative and well developed Orientation / Consciousness: awake, oriented to person, oriented to place and oriented to time HEENT normocephalic, head/scalp atraumatic and moist oral mucous membranes HEENT Narrative: Patient is hard of hearing Eyes PERRL, EOMs intact bilaterally and conjunctivae normal Neck supple, no JVD, thyroid normal and no carotid bruits General: trachea midline Resp normal respiratory effort and no retractions Resp Narrative: Patient has expiratory rhonchi scattered over both lungs Auscultation: rhonchi throughout; Negative for rales or wheezes Cardio regular rate, regular rhythm, S1 normal heart sound, S2 normal heart sound, no murmurs, no rub and no gallops GI normal to inspection, nondistended, normoactive bowel sounds, soft to palpation, non-tender and non-distended Extremity no clubbing, cyanosis or edema Skin no rashes or lesions noted General Skin Exam: no breakdown Neuro oriented x3, CN's II-XII intact bilaterally, no focal motor deficits and no sensory deficits noted Sensorium / Orientation: awake and alert Speech: speech normal Psych affect normal Assessment & Plan Assessment/Plan (1) Adult failure to thrive: (2) History of COPD: PLAN: Plan 1. Acute on chronic hypoxic respiratory failure secondary to pneumonia and severe COPD-continue aerosol treatments and IV Solu-Medrol, pulse ox will be monitored, again respiratory culture is growing out gram-negative lactose cage/vault supervisor that is not identified. Patient is currently on IV Levaquin #2 bibasilar pneumonia-patient is currently on IV Levaquin, respiratory culture grew out gram-negative lactose cage/vault supervisor, await for identification #3 failure to thrive/[id number] suspect the patient has lost quite a bit of weight, the timeframe is unknown at this time patient is not a good informant, nutritional services will see the patient, he may need short-term placement in a [place] [facility] facility. #4 chronic depression-patient is on Prozac and lamotrigine #5 essential hypertension-patient is on Norvasc #6 hyperlipidemia-patient is on Lipitor Total clinical time spent by myself addressing the patient's medical issues, reviewing all of his data, and collaborating with patient's care team: 35 minutes Charges/Coding Visit Charges Inpatient E&M: 18443 Subs Hosp L2
[2024-12-22] MEDS: Furosemide 20 MG/2 ML VIAL IV (20:55)
--- NOTE | 2024-12-22 23:09 | PCM.HOSP.N ---
Hospitalist Note Patient with increased oxygen requirement needs on airvo, will attempt transition to BiPAP, ABG requested, will administer Lasix 40 mg IV x 1 now in addition, will plan to obtain CBC, CMP in a.m. to continue to monitor functions, will make further adjustments for BiPAP settings based on ABG with potential repeat in 1 to 2 hours.
[2024-12-23] VITALS (18 sets, daily range): BP systolic 104–145; BP diastolic 64–82; PULSE 50–88; RESP 14–22; TEMP 36.5–36.8; O2SAT 90–100
[2024-12-23 00:17] LABS: Hematocrit 32.0 % (40-54); Hemoglobin 10.4 g/dL (13.0-16.5); Immature Granulocytes Count 0.100 X10^3/uL (0.0-0.0); Mean Corp Hgb Conc 32.5 g/dL (32-36); Mean Corpuscular Volume 84.0 fL (80-94); Mean Platelet Vol. 10.7 fl (6.2-12.0); NRBC Flagged by Analyzer 0 % (0-5); POSITIVE DIFFERENTIAL YES; POSITIVE MORPHOLOGY YES; Platelet Count 284 K/mm3 (150-450); RBC Distribution Width CV 19.3 % (11.6-14.6); RBC Distribution Width SD 59.6 fl (35.1-43.9); Red Blood Count 3.81 M/mm3 (4.6-6.2); White Blood Count 12.6 K/mm3 (4.4-11.0)
[2024-12-23 00:18] LABS: Differential Indicated SCAN CRITERIA MET
[2024-12-23 00:46] LABS: Differential Comment SCANNED
[2024-12-23 00:58] LABS: AST(SGOT) 29 U/L (<=37); Alanine Aminotransfer ALT/SGPT 20 U/L (<=46); Albumin, Serum 3.5 g/dL (3.4-4.8); Alkaline Phosphatase 63 U/L (40-129); Anion Gap 12 (5-15); BUN 31 mg/dL (4-19); BUN/Creat Ratio 29.8 RATIO (10-20); Calcium,Total 9.9 mg/dL (7.6-11.0); Carbon Dioxide 26.1 mmol/L (21.0-32.0); Chloride 105 mmol/L (98-108); Estimated Creatinine Clearance 40.77 ml/min (50-250); Globulin 3.5 g/dL (2.2-4.2); Glucose 150 mg/dL (70-99); Potassium 4.2 mmol/L (3.3-5.1)
[2024-12-23 05:48] LABS: Hematocrit 31.2 % (40-54); Hemoglobin 10.2 g/dL (13.0-16.5); Immature Granulocytes Count 0.080 X10^3/uL (0.0-0.0); Mean Corp Hgb Conc 32.7 g/dL (32-36); Mean Corpuscular Volume 83.4 fL (80-94); Mean Platelet Vol. 10.2 fl (6.2-12.0); NRBC Flagged by Analyzer 0 % (0-5); POSITIVE MORPHOLOGY YES; Platelet Count 249 K/mm3 (150-450); RBC Distribution Width CV 19.3 % (11.6-14.6); RBC Distribution Width SD 58.0 fl (35.1-43.9); Red Blood Count 3.74 M/mm3 (4.6-6.2); White Blood Count 11.4 K/mm3 (4.4-11.0)
[2024-12-23 06:05] LABS: Differential Indicated SCAN CRITERIA MET
[2024-12-23 06:09] LABS: AST(SGOT) 24 U/L (<=37); Alanine Aminotransfer ALT/SGPT 15 U/L (<=46); Albumin, Serum 3.5 g/dL (3.4-4.8); Alkaline Phosphatase 68 U/L (40-129); Anion Gap 12 (5-15); BUN 33 mg/dL (4-19); BUN/Creat Ratio 30.4 RATIO (10-20); Calcium,Total 9.8 mg/dL (7.6-11.0); Carbon Dioxide 28.3 mmol/L (21.0-32.0); Chloride 105 mmol/L (98-108); Estimated Creatinine Clearance 40.01 ml/min (50-250); Globulin 3.0 g/dL (2.2-4.2); Glucose 164 mg/dL (70-99); Potassium 4.2 mmol/L (3.3-5.1)
[2024-12-23 06:58] LABS: Differential Comment SCANNED
--- NOTE | 2024-12-23 09:24 | EX.PCM.CONCC ---
Assessment & Plan Assessment/Plan (1) Aspiration pneumonia: QUALIFIERS: Aspiration pneumonia type: unspecified Laterality: right Lung location: upper lobe of lung Qualified Code(s): J69.0 - Pneumonitis due to inhalation of food and vomit PLAN: Plan RECOMMENDATIONS: 1. Continue to wean supplemental oxygen to maintain saturations at or above 90%. 2. Agree with transition to meropenem given ESBL E. coli isolated in sputum. 3. Continue scheduled bronchodilators and IV steroids. 4. Agree with gentle diuresis as tolerated by hemodynamics and renal function. 5. Continue appropriate DVT prophylaxis. 6. Encourage incentive spirometer use and mobilize patient as tolerated. 7. Agree with n.p.o. status, pending evaluation by speech therapy, prior to advancement of diet. IMPRESSIONS: 1. Acute on chronic hypoxemic respiratory failure Clinical concern for possible COPD exacerbation related to pneumonia with concern for aspiration. Unfortunately, the patient's sputum culture was positive for ESBL E. coli, for which he was transitioned to meropenem this morning. I agree with continuing scheduled bronchodilators and steroids, along with gentle diuresis, as tolerated by hemodynamics and renal function. The patient is quite frail and cachectic. Agree with PT/OT evaluations. The patient should remain n.p.o. for now, given concerns for aspiration, pending evaluation by speech therapy. 2. History of tobacco dependency, apparently in remission Ongoing cessation is advised. Recommend outpatient pulmonary follow-up after discharge. 3. History of failure to thrive/depression/hypertension/hyperlipidemia Complicates care, management, recovery and prognosis. Continue home medications as indicated. This note was generated with [employer] dictation software. It may contain incorrect words, spelling, and punctuation that were not noted in checking the note before signing. HPI Consult Data Date of Consult: 12/23/24 HPI Narrative Reason for Consultation: Acute on chronic respiratory failure HPI Narrative: The patient is a 79-year-old male, with a history as outlined below, who presented to the emergency department via EMS on December 20 with progressive shortness of breath. The patient has a longstanding tobacco abuse history and was previously evaluated in the pulmonary medicine clinic back in 2019. He did have pulmonary function studies in 2019 which technically only demonstrated a mild restrictive impairment. However, the patient had great difficulty completing testing. At the time of his last office visit in December 2019, the patient was still noted to be smoking. He never followed up in our office after that visit. While the patient did report to me that he has supplemental oxygen at 2 to 3 L/min, he has been noncompliant with its use. He also indicated to me that he quit smoking 5 to 6 years ago. On presentation to the emergency department, the patient was noted to be afebrile and hemodynamically stable. Laboratory evaluation was notable for a white blood cell count of 14,000. CTA chest showed no evidence for pulmonary embolism but did demonstrate bibasilar infiltrates. The patient was subsequently placed on antimicrobials, bronchodilators and steroids. He was admitted to the progressive care unit for further management. Over the course of his hospitalization, the patient's oxygen requirement has increased. Unfortunately, his sputum culture this morning demonstrated the presence of ESBL E. coli, for which his antimicrobials were changed to meropenem. In addition, nursing staff reported that the patient choked last night while taking pills. He was subsequently made NPO. Speech therapy evaluation is pending. [facility] Medical History Marijuana smoker, episodic Epilepsy Muscle wasting and atrophy, not elsewhere classified, back, unspecified level Insomnia Dysphagia Wernickes encephalopathy BPH (benign prostatic hyperplasia) COPD (chronic obstructive pulmonary disease) CKD (chronic kidney disease) Severe protein-calorie malnutrition Flu vaccine need Cerumen impaction Nausea vomiting and diarrhea Change in mental status Anxiety Vitamin D deficiency History of alcohol abuse History of fracture of clavicle History of kidney stones IBS (irritable bowel syndrome) GERD (gastroesophageal reflux disease) Depression Anemia Hypertension Seizure disorder Home Medications ?Medication ?Instructions ?Recorded ?Last Taken ?Type fluoxetine 20 mg capsule 20 mg PO DAILY DEPRESSION #90 caps 08/07/20 11/11/23 Rx lamotrigine 150 mg tablet 150 mg PO BID #60 tabs 07/15/21 11/11/23 Rx ondansetron HCl 4 mg tablet 4 mg PO TID PRN nausea and 07/15/21 Unknown Rx vomiting #90 tabs omeprazole 40 mg capsule,delayed 40 mg PO DAILY GERD #90 caps 07/19/21 11/11/23 Rx release tamsulosin 0.4 mg capsule 0.4 mg PO DAILY@1830 prostate #180 08/16/21 11/11/23 Rx caps memantine 10 mg tablet See Rx Instructions .Route 01/31/22 11/11/23 Rx .COMPLEX #56 tabs folic acid 1 mg tablet 1 mg PO BREAKFAST #0 tabs 02/01/22 11/11/23 Rx polyethylene glycol 3350 17 gram 34 g PO DAILY #0 ea 02/01/22 Unknown Rx oral powder packet mirtazapine 7.5 mg tablet 15 mg PO QHS mood 01/06/23 11/11/23 History montelukast 10 mg tablet 10 mg PO QHS breathing 01/06/23 11/11/23 History acetaminophen 500 mg tablet 1,000 mg PO .noon PRN fever or pain 11/12/23 11/11/23 History (Acetaminophen Extra Strength) acetaminophen 500 mg tablet 1,000 mg PO BID pain/ scheduled med 11/12/23 11/11/23 History (Acetaminophen Extra Strength) atorvastatin 20 mg tablet 20 mg PO DAILY cholesterol 11/12/23 11/11/23 History clonazepam 0.5 mg tablet 0.5 mg PO Q8H anxiety 11/12/23 11/11/23 History diclofenac sodium 1 % topical gel 1 ea topical BID arthritis pain 11/12/23 11/11/23 History (Aleve (diclofenac)) guaifenesin 400 mg tablet (Chest 400 mg PO TID PRN chest congestion 11/12/23 11/11/23 History Congestion Relief) fluticasone propionate 50 1 spray NASAL BID #0 grams 11/13/23 Unknown Rx mcg/actuation nasal spray,suspension amlodipine 5 mg tablet 10 mg PO DAILY BP 12/20/24 Unknown History OXYGEN - Supplemental ([facility] 12/22/24 Unknown History INFORMATIONAL USE ONLY) Allergy/AdvReac Type Severity Reaction Status Date / Time bupropion HCl (From Allergy SHAKING Verified 11/30/24 09:02 Wellbutrin) quetiapine fumarate (From Allergy Unknown Verified 11/30/24 09:02 Seroquel) trazodone AdvReac SHAKING Verified 11/30/24 09:02 Family History Mother Cancer Breast cancer Hypertension Father Cancer Hypertension Other Anemia Anxiety Depression Osteoporosis Surgical History History of hip surgery History of intestinal surgery History of tonsillectomy Social History (Updated 12/20/24 @ 13:24 by Fabiola Garza) household members: none housing: assisted living facility Smoking Status: Former smoker Tobacco: How many years used: 50 alcohol intake: former year quit: 2019 substance use type: marijuana what type of physical activity do you participate in: none ROS ROS Narrative 10 systems were reviewed with pertinent positives as noted in the HPI above. Physical Exam Const alert and no apparent distress Constitutional Narrative: The patient is quite frail and cachectic in appearance. General Appearance: cooperative HEENT normocephalic and head/scalp atraumatic HEENT Narrative: Dry mucous membranes. Eyes PERRL, EOMs intact bilaterally and conjunctivae normal Neck supple General: trachea midline Chest inspection of chest normal Resp normal respiratory effort Auscultation: rhonchi and diminished lung sounds Cardio regular rate and regular rhythm GI normal to inspection, nondistended, normoactive bowel sounds Extremity no clubbing, cyanosis or edema Skin no rashes or lesions noted Neuro CN's II-XII intact bilaterally, moves all extremities and no focal motor deficits Psych Mood & Affect: flat affect Lab / Micro Data 12/23/24 04:58 12/23/24 04:58 Labs: Laboratory Results - last 24 hr 12/22/24 23:45: WBC 12.6 H, RBC 3.81 L, Hgb 10.4 L, Hct 32.0 L, MCV 84.0, MCH 27.3, MCHC 32.5, RDW Std Deviation 59.6 H, RDW Coeff of Dariela 19.3 H, Plt Count 284, MPV 10.7, Immature Gran % (Auto) 0.800, Neut % (Auto) 86.2 H, Lymph % (Auto) 4.5 L, Finney % (Auto) 8.3, Eos % (Auto) 0.0, Baso % (Auto) 0.2, Absolute Neuts (auto) 10.9 H, Absolute Lymphs (auto) 0.57 L, Nucleated RBC % 0, Differential Comment SCANNED, Sodium 144, Potassium 4.2, Chloride 105, Carbon Dioxide 26.1, Anion Gap 12, BUN 31 H, Creatinine 1.05, Estim Creat Clear Calc 40.77 L, Est GFR (MDRD) Non-Af 72, BUN/Creatinine Ratio 29.8 H, Glucose 150 H, Calcium 9.9, Total Bilirubin 0.53, AST 29, ALT 20, Alkaline Phosphatase 63, Total Protein 7.0, Albumin 3.5, Globulin 3.5, Albumin/Globulin Ratio 1.0 12/23/24 04:58: WBC 11.4 H, RBC 3.74 L, Hgb 10.2 L, Hct 31.2 L, MCV 83.4, MCH 27.3, MCHC 32.7, RDW Std Deviation 58.0 H, RDW Coeff of Dariela 19.3 H, Plt Count 249, MPV 10.2, Immature Gran % (Auto) 0.700, Neut % (Auto) 87.0 H, Lymph % (Auto) 5.8 L, Finney % (Auto) 6.3, Eos % (Auto) 0.0, Baso % (Auto) 0.2, Absolute Neuts (auto) 9.9 H, Absolute Lymphs (auto) 0.66 L, Nucleated RBC % 0, Differential Comment SCANNED, Sodium 144, Potassium 4.2, Chloride 105, Carbon Dioxide 28.3, Anion Gap 12, BUN 33 H, Creatinine 1.07, Estim Creat Clear Calc 40.01 L, Est GFR (MDRD) Non-Af 71, BUN/Creatinine Ratio 30.4 H, Glucose 164 H, Calcium 9.8, Total Bilirubin 0.52, AST 24, ALT 15, Alkaline Phosphatase 68, Total Protein 6.5, Albumin 3.5, Globulin 3.0, Albumin/Globulin Ratio 1.2 Micro: Microbiology 12/21/24 09:00 Sputum, Expectorated/Coughed Gram Stain - Final 12/21/24 09:00 Sputum, Expectorated/Coughed Respiratory Culture - Preliminary ESBL Escherichia coli Imaging Radiology Impression Chest X-Ray 12/22/24 14:22 IMPRESSION: 1. Bibasilar airspace opacities and atelectasis. 2. Mild cardiomegaly and mild pulmonary vascular congestion. Reading Location: [facility] Charges/Coding Visit Charges Inpatient E&M: 31835 Init Hosp L3
--- NOTE | 2024-12-23 09:31 | CASEMGMT ---
Social Work APOORVA spoke with Suzette Ferrer, [employer]. Suzette is aware of pt eating issues. States pt complains of nausea while eating and this is prohibting intake. Per Suzette, pt has been on anti nausea medication. Suzette acknowledges need for dentures but there are obstacles as ther is no Dentist in the [facility] that accepts pt insurance and will help with dentures. Suzette did state she will work with the [facility] to get pt an appointment and transportation to a dentist in [place] to assess for dentures. Per Suzette, while pt does not like to leave room and go to the dining room at [facility], they do bring meals to his room. Suzette also states that pt has home oxygen, but does not use it. APOORVA will update Suzette at time of discharge. JEFFERSON Buckley
[2024-12-23] MEDS: Meropenem 1 GM in 0.9% Normal Saline (100mL MB+) 100 ML IV ×2 (11:05→23:07)
[2024-12-23] MEDS: 0.9% Saline Lock 10 ML Syringe IV ×4 (11:12→23:19)
[2024-12-23] MEDS: Fluticasone 0.05% 1 SPRAY NASAL.SRY NASAL ×2 (11:13→22:53)
[2024-12-23] MEDS: Heparin Injection (Vial) 5,000 UNIT/ML VIAL 5000 UNIT SC ×2 (11:18→22:49)
[2024-12-23] MEDS: Furosemide 20 MG/2 ML VIAL IV ×2 (11:18→18:30)
[2024-12-23] MEDS: Memantine Hydrochloride 10 MG Tablet PO ×2 (11:25→22:51)
--- NOTE | 2024-12-23 17:38 | PN.HOSP_ITS ---
Reason for Visit Chief Complaint: Shortness of breath Subjective Subjective Patient was seen and examined today, he remains on Airvo, I had pulmonary medicine see the patient and they did not have anything substantial to add to his care. Patient's sputum was positive for ESBL E. coli, I changed the patient over to meropenem. Patient remains on IV Lasix at this time for diuresis. Echocardiogram showed an ejection fraction of 65% there was no significant valvular disease. Objective Data Objective Data Vital Signs: Vital Signs Temp Pulse Resp BP Pulse Ox O2 Del Method O2 Flow Rate 97.8 F 72 19 H 108/69 93 Airvo 65 12/23/24 14:00 12/23/24 14:00 12/23/24 14:00 12/23/24 14:00 12/23/24 14:00 12/23/24 15:00 12/23/24 15:00 FiO2 70 12/23/24 15:00 Oxygen Flow Rate (L/min) 65 Oxygen Delivery Method Airvo Weight: 50.53 kg Body Mass Index (BMI) 18.5 Intake & Output: Intake and Output for Last 24 Hours 12/21/24 12/22/24 12/23/24 23:59 23:59 23:59 Intake Total 1245 / 1365 1115 / 1115 100 / 100 Output Total 300 / 300 450 / 850 900 / 900 Balance 945 / 1065 665 / 265 -800 / -800 Lab / Micro Data 12/23/24 04:58 12/23/24 04:58 Labs: Laboratory Results - last 24 hr 12/22/24 23:45: WBC 12.6 H, RBC 3.81 L, Hgb 10.4 L, Hct 32.0 L, MCV 84.0, MCH 27.3, MCHC 32.5, RDW Std Deviation 59.6 H, RDW Coeff of Dariela 19.3 H, Plt Count 284, MPV 10.7, Immature Gran % (Auto) 0.800, Neut % (Auto) 86.2 H, Lymph % (Auto) 4.5 L, Sanders % (Auto) 8.3, Eos % (Auto) 0.0, Baso % (Auto) 0.2, Absolute Neuts (auto) 10.9 H, Absolute Lymphs (auto) 0.57 L, Nucleated RBC % 0, Differential Comment SCANNED, Sodium 144, Potassium 4.2, Chloride 105, Carbon Dioxide 26.1, Anion Gap 12, BUN 31 H, Creatinine 1.05, Estim Creat Clear Calc 40.77 L, Est GFR (MDRD) Non-Af 72, BUN/Creatinine Ratio 29.8 H, Glucose 150 H, Calcium 9.9, Total Bilirubin 0.53, AST 29, ALT 20, Alkaline Phosphatase 63, Total Protein 7.0, Albumin 3.5, Globulin 3.5, Albumin/Globulin Ratio 1.0 12/23/24 04:58: WBC 11.4 H, RBC 3.74 L, Hgb 10.2 L, Hct 31.2 L, MCV 83.4, MCH 27.3, MCHC 32.7, RDW Std Deviation 58.0 H, RDW Coeff of Dariela 19.3 H, Plt Count 249, MPV 10.2, Immature Gran % (Auto) 0.700, Neut % (Auto) 87.0 H, Lymph % (Auto) 5.8 L, Sanders % (Auto) 6.3, Eos % (Auto) 0.0, Baso % (Auto) 0.2, Absolute Neuts (auto) 9.9 H, Absolute Lymphs (auto) 0.66 L, Nucleated RBC % 0, Differential Comment SCANNED, Sodium 144, Potassium 4.2, Chloride 105, Carbon Dioxide 28.3, Anion Gap 12, BUN 33 H, Creatinine 1.07, Estim Creat Clear Calc 40.01 L, Est GFR (MDRD) Non-Af 71, BUN/Creatinine Ratio 30.4 H, Glucose 164 H, Calcium 9.8, Total Bilirubin 0.52, AST 24, ALT 15, Alkaline Phosphatase 68, Total Protein 6.5, Albumin 3.5, Globulin 3.0, Albumin/Globulin Ratio 1.2 Micro: Microbiology 12/21/24 09:00 Sputum, Expectorated/Coughed Gram Stain - Final 12/21/24 09:00 Sputum, Expectorated/Coughed Respiratory Culture - Preliminary ESBL Escherichia coli 12/21/24 04:15 Urine, Random Legionella Antigen - Final 12/21/24 04:15 Urine, Random Streptococcus pneumoniae Antigen (M - Final 12/20/24 14:34 Mucosa - Nasopharyngeal Respiratory Panel (PCR) - Final 12/20/24 12:25 Mucosa - Nose SARS-CoV-2, Influenza & RSV (PCR) - Final Radiography Diagnostic Testing: Radiology Impression Echocardiogram 12/22/24 14:17 Interpretation Summary The estimated ejection fraction is 65 %. Diastolic function is indeterminate. Ordering Physician: Scooby Simms Referring Physician: Shiva Zamarripa Performed By: Palmira Romero RDCS Physical Exam Narrative alert, oriented x3 and no apparent distress Constitutional Narrative: Patient is cachectic appearing and older than his stated age General Appearance: cooperative and well developed Orientation / Consciousness: awake, oriented to person, oriented to place and oriented to time HEENT normocephalic, head/scalp atraumatic and moist oral mucous membranes HEENT Narrative: Patient is hard of hearing Eyes PERRL, EOMs intact bilaterally and conjunctivae normal Neck supple, no JVD, thyroid normal and no carotid bruits General: trachea midline Resp normal respiratory effort and no retractions Resp Narrative: Patient has expiratory rhonchi scattered over both lungs Auscultation: rhonchi throughout; Negative for rales or wheezes Cardio regular rate, regular rhythm, S1 normal heart sound, S2 normal heart sound, no murmurs, no rub and no gallops GI normal to inspection, nondistended, normoactive bowel sounds, soft to palpation, non-tender and non-distended Extremity no clubbing, cyanosis or edema Skin no rashes or lesions noted General Skin Exam: no breakdown Neuro oriented x3, CN's II-XII intact bilaterally, no focal motor deficits and no sensory deficits noted Sensorium / Orientation: awake and alert Speech: speech normal Psych affect normal Assessment & Plan Assessment/Plan (1) History of COPD: (2) Adult failure to thrive: PLAN: Plan 1. Acute on chronic hypoxic respiratory failure secondary to pneumonia and severe COPD-continue aerosol treatments and IV Solu-Medrol, pulse ox will be monitored, again respiratory culture grew out ESBL E. coli, patient was changed to meropenem today #2 bibasilar pneumonia-patient is currently on IV meropenem, organism is ESBL E. coli #3 failure to thrive/[id number]-K suspect the patient has lost quite a bit of weight, the timeframe is unknown at this time patient is not a good informant, nutritional services will see the patient, he may need short-term placement in a senior living facility. #4 chronic depression-patient is on Prozac and lamotrigine #5 essential hypertension-patient is on Norvasc #6 hyperlipidemia-patient is on Lipitor #7 dysphagia-patient is having swallowing difficulties, speech saw the patient and is maintaining an n.p.o. status except for meds with applesauce, patient's oxygen saturation declined with ice cubes today, there will be a modified barium swallow test performed on Thursday. Total clinical time spent by myself addressing the patient's medical issues, reviewing all of his data, and collaborating with patient's care team: 35 minutes Charges/Coding Visit Charges Inpatient E&M: 29157 Subs Hosp L2
[2024-12-24] VITALS (12 sets, daily range): BP systolic 104–133; BP diastolic 70–92; PULSE 62–86; RESP 14–18; TEMP 36.1–36.9; O2SAT 92–99
[2024-12-24] MEDS: 0.9% Saline Lock 10 ML Syringe IV ×3 (05:38→22:14)
[2024-12-24] MEDS: Memantine Hydrochloride 10 MG Tablet PO ×2 (08:35→22:03)
[2024-12-24] MEDS: Heparin Injection (Vial) 5,000 UNIT/ML VIAL 5000 UNIT SC ×2 (08:35→22:04)
[2024-12-24] MEDS: Furosemide 20 MG/2 ML VIAL IV ×2 (08:35→17:18)
[2024-12-24] MEDS: Meropenem 1 GM in 0.9% Normal Saline (100mL MB+) 100 ML IV ×2 (08:35→22:14)
--- NOTE | 2024-12-24 09:15 | PCM.PN.HOSP ---
Reason for Visit Chief Complaint: Shortness of breath Objective Data Objective Data Vital Signs: Vital Signs Temp Pulse Resp BP Pulse Ox O2 Del Method O2 Flow Rate 98.1 F 77 17 133/86 H 95 Airvo 65 12/24/24 08:32 12/24/24 08:32 12/24/24 08:32 12/24/24 08:32 12/24/24 08:32 12/24/24 08:32 12/24/24 08:32 FiO2 75 12/24/24 08:32 Oxygen Flow Rate (L/min) 65 Oxygen Delivery Method Airvo Weight: 111 lb 6.4 oz Body Mass Index (BMI) 18.5 Intake & Output: Intake and Output for Last 24 Hours 12/22/24 12/23/24 12/24/24 23:59 23:59 23:59 Intake Total 1115 / 1115 100 / 100 100 / 100 Output Total 450 / 850 1750 / 1750 850 / 850 Balance 665 / 265 -1650 / -1650 -750 / -750 Lab / Micro Data 12/23/24 04:58 12/23/24 04:58 Micro: Microbiology 12/21/24 09:00 Sputum, Expectorated/Coughed Gram Stain - Final 12/21/24 09:00 Sputum, Expectorated/Coughed Respiratory Culture - Final ESBL Escherichia coli 12/21/24 04:15 Urine, Random Legionella Antigen - Final 12/21/24 04:15 Urine, Random Streptococcus pneumoniae Antigen (M - Final 12/20/24 14:34 Mucosa - Nasopharyngeal Respiratory Panel (PCR) - Final 12/20/24 12:25 Mucosa - Nose SARS-CoV-2, Influenza & RSV (PCR) - Final Radiography Diagnostic Testing: Radiology Impression Echocardiogram 12/22/24 14:17 Interpretation Summary The estimated ejection fraction is 65 %. Diastolic function is indeterminate. Ordering Physician: Scooby Simms Referring Physician: Shiva Zamarripa Performed By: Palmira Romero RDCS Physical Exam Narrative Seen and examined Patient is severely malnourished. Currently n.p.o. has not been bowel for couple days probably 2 to 3 days. Passing flatus. Looks short of breath on Airvo 75% FiO2 Physical exam General: Alert, Oriented x3, Cooperative, BMI 18.5 kg/m? HEENT: Atraumatic, PERRLA, EOMI, Normocephalic. Oral: No Gingival or Mucosal Lesions/ Ulcerations Neck: Supple, No JVD, Negative Carotid Bruits Chest wall/Lungs: Air entry severely diminished in all lung pruett Cardiovascular: Regular sinus rhythm, normal S1,S2 systolic murmur Abdomen: Bowel Sounds sluggish, soft, Non Tender, Non-Distended : No dysuria. No renal angle tenderness. No suprapubic tenderness. Extremities: No edema, Capillary Refill Less than 3 Seconds Skin: No rashes, No breakdown Musculoskeletal: Diffuse atrophy of muscles of lower extremity, upper extremity and spine. No acute tenderness to Palpation of Joints or Extremities Neurological: Cranial nerves II-XII grossly intact, DTR 2+/4. No acute focal neurological deficit. Psych/Mental Status: Flat affect Assessment & Plan Assessment/Plan (1) History of COPD: (2) Adult failure to thrive: PLAN: Plan 79-year-old gentleman was admitted with shortness of breath for past couple days, productive cough. Pulse ox 90% on room air. Wears 2 L of oxygen at baseline 1. Acute on chronic hypoxic respiratory failure secondary to pneumonia and severe COPD-continue aerosol treatments and IV Solu-Medrol, pulse ox will be monitored, again respiratory culture grew out ESBL E. coli, patient was changed to meropenem DC IV Solu-Medrol and changed to prednisone. #2 bibasilar pneumonia-patient is currently on IV meropenem, organism is ESBL E. coli #3 failure to thrive/self-neglect: Patient has lost significant weight, severe protein calorie malnutrition, difficulty in sitting up in the bed by himself. Decreased muscle mass in lower extremities, upper extremities, paraspinal, craniofacial and chest wall muscles. Exact amount of weight loss is unclear but patient had significant weight loss. Nutritional services will see the patient, he may need short-term placement in a correction facility. #4 chronic depression-patient is on Prozac and lamotrigine #5 essential hypertension-patient is on Norvasc #6 hyperlipidemia-patient is on Lipitor #7 dysphagia-patient is having swallowing difficulties, speech saw the patient and is maintaining an n.p.o. status except for meds with applesauce, modified barium swallow on Thursday Started on D5W at 50 mL/h for nutritional purposes. Sodium and potassium in normal range. Charges/Coding Visit Charges Inpatient E&M: 75735 Subs Hosp L2
--- NOTE | 2024-12-24 11:10 | NURSING ---
Pt refusing to work with therapy because no one will get him anything to eat or drink. Attempted to educate patient on aspiration risk. Patient very upset and attempting to call 911 on tv remote because no one will give him water.
[2024-12-24] MEDS: Dextrose 5%-Water (1000mL Bag) 1,000 ML 50 ML IV (11:41)
--- NOTE | 2024-12-24 19:41 | CPS ---
decreased fio2 to 70%
[2024-12-24] MEDS: Fluticasone 0.05% 1 SPRAY NASAL.SRY NASAL (22:04)
[2024-12-25] VITALS (11 sets, daily range): BP systolic 118–145; BP diastolic 78–97; PULSE 50–87; RESP 13–19; TEMP 36.2–36.7; O2SAT 93–97
--- NOTE | 2024-12-25 01:22 | CPS ---
pt found with bipap mask sideways on face-pt wanted mask removed and airvo put back on-no resp distress noted sats in the 90's-pt placed back on airvo
--- NOTE | 2024-12-25 08:39 | PCM.PN.HOSP ---
Reason for Visit Chief Complaint: Shortness of breath Objective Data Objective Data Vital Signs: Vital Signs Temp Pulse Resp BP Pulse Ox O2 Del Method O2 Flow Rate 97.3 F L 60 16 134/87 H 93 Airvo 65 12/25/24 05:30 12/25/24 06:39 12/25/24 06:39 12/25/24 05:30 12/25/24 06:39 12/25/24 07:41 12/25/24 06:39 FiO2 60 12/25/24 06:39 Oxygen Flow Rate (L/min) 65 Oxygen Delivery Method Airvo Weight: 111 lb 6.4 oz Body Mass Index (BMI) 18.5 Intake & Output: Intake and Output for Last 24 Hours 12/23/24 12/24/24 12/25/24 23:59 23:59 23:59 Intake Total 100 / 100 200 / 200 100 / 100 Output Total 1750 / 1750 1650 / 1650 0 / 0 Balance -1650 / -1650 -1450 / -1450 100 / 100 Lab / Micro Data 12/25/24 09:17 12/25/24 09:17 Micro: Microbiology 12/21/24 09:00 Sputum, Expectorated/Coughed Gram Stain - Final 12/21/24 09:00 Sputum, Expectorated/Coughed Respiratory Culture - Final ESBL Escherichia coli 12/21/24 04:15 Urine, Random Legionella Antigen - Final 12/21/24 04:15 Urine, Random Streptococcus pneumoniae Antigen (M - Final 12/20/24 14:34 Mucosa - Nasopharyngeal Respiratory Panel (PCR) - Final 12/20/24 12:25 Mucosa - Nose SARS-CoV-2, Influenza & RSV (PCR) - Final Physical Exam Narrative Seen and examined Patient is severely malnourished. Patient still short of breath on Airvo 60% FiO2. Today nurse informed that he has not passed BM for 5 to 6 days to 1 week. Passing flatus. Looks short of breath on Airvo 75% FiO2 Physical exam General: Alert, Oriented x3, Cooperative, BMI 18.5 kg/m? HEENT: Atraumatic, PERRLA, EOMI, Normocephalic. Oral: No Gingival or Mucosal Lesions/ Ulcerations Neck: Supple, No JVD, Negative Carotid Bruits Chest wall/Lungs: Air entry severely diminished in all lung pruett. Bilateral coarse crepitations. On Airvo Cardiovascular: Regular sinus rhythm, normal S1,S2 systolic murmur Abdomen: Bowel Sounds sluggish, soft, Non Tender, Non-Distended : No dysuria. No renal angle tenderness. No suprapubic tenderness. Extremities: No edema, Capillary Refill Less than 3 Seconds Skin: No rashes, No breakdown Musculoskeletal: Diffuse atrophy of muscles of lower extremity, upper extremity and spine. No acute tenderness to Palpation of Joints or Extremities Neurological: Cranial nerves II-XII grossly intact, DTR 2+/4. No acute focal neurological deficit. Psych/Mental Status: Flat affect Assessment & Plan Assessment/Plan (1) History of COPD: (2) Adult failure to thrive: PLAN: Plan 79-year-old gentleman was admitted with shortness of breath for past couple days, productive cough. Pulse ox 90% on room air. Wears 2 L of oxygen at baseline 1. Acute on chronic hypoxic respiratory failure secondary to pneumonia and severe COPD exacerbation complicated with dysphagia-continue aerosol treatments and IV Solu-Medrol, pulse ox will be monitored, again respiratory culture grew out ESBL E. coli, patient was changed to meropenem DC IV Solu-Medrol and changed to prednisone. 12/25: Patient respiratory status similar to yesterday. Short of breath, weak cough reflex, not able to cough out mucus. Nursing reported that she is not safe to allow oral even for medications therefore prednisone changed to IV Solu-Medrol. Mucomyst with DuoNeb ordered as mucolytic agent #2 bibasilar pneumonia-patient is currently on IV meropenem, organism is ESBL E. coli 12/25: Chest x-ray shows bibasilar airspace opacity and atelectasis. Mild cardiomegaly and mild pulmonary vascular congestion. IV fluid that was started yesterday discontinued #3 failure to thrive/self-neglect: Patient has lost significant weight, severe protein calorie malnutrition, difficulty in sitting up in the bed by himself. Decreased muscle mass in lower extremities, upper extremities, paraspinal, craniofacial and chest wall muscles. Exact amount of weight loss is unclear but patient had significant weight loss. Nutritional services will see the patient, he may need short-term placement in a [facility] facility. #4 chronic depression-patient is on Prozac and lamotrigine #5 essential hypertension-patient is on Norvasc #6 hyperlipidemia-patient is on Lipitor #7 dysphagia-patient is having swallowing difficulties, speech saw the patient and is maintaining an n.p.o. status except for meds with applesauce, modified barium swallow on Thursday Started on D5W at 50 mL/h for nutritional purposes. Sodium and potassium in normal range. 9/send plan DC IV fluid. 8. Severe constipation: Abdominal x-ray does not show features of ileus or bowel obstruction. Nonspecific gas shadow. Reported radiographically negative acute abdomen. I talked to the patient's next of kin her sister, Mrs. Mckeon. She was not aware that patient is admitted here. She called patient's skilled nursing and got known answer. I told her that patient not doing well with respiratory failure, dysphagia, pneumonia and decreased physical and mental capacity. Clinical Impression(s) from Imaging Studies Chest CTA 12/20/24 09:49 IMPRESSION: Bibasilar pulmonary infiltrates. No pulmonary embolism. Increased kyphosis with multiple compression fractions of the visualized thoracic and upper lumbar spine. Echocardiogram 12/22/24 14:17 Interpretation Summary The estimated ejection fraction is 65 %. Diastolic function is indeterminate. Chest X-Ray 12/22/24 14:22 IMPRESSION: 1. Bibasilar airspace opacities and atelectasis. 2. Mild cardiomegaly and mild pulmonary vascular congestion. Acute Abdomen Series 12/25/24 09:37 IMPRESSION: Stable left lung base atelectasis/infiltrate. Stable appearance of lungs otherwise. Radiographically negative abdomen. Charges/Coding Addendum Addendum: Total time of the visit including total time spent in counseling or coordination of care, (more than 50% of the total time, spent in obtaining medical information from nurses and other ancillary care providers ,explaining to the patient about labs, imaging, diagnosis and management of active complex medical conditions), multiple acute issues, clinical update given to patient's sister, review of labs and imaging is 35 minutes. Visit Charges Inpatient E&M: 41094 [facility] Hosp L3
[2024-12-25] MEDS: Meropenem 1 GM in 0.9% Normal Saline (100mL MB+) 100 ML IV ×2 (09:18→22:48)
[2024-12-25] MEDS: Memantine Hydrochloride 10 MG Tablet PO ×2 (09:22→22:49)
[2024-12-25] MEDS: Heparin Injection (Vial) 5,000 UNIT/ML VIAL 5000 UNIT SC ×2 (09:22→22:48)
[2024-12-25 09:25] LABS: Hematocrit 38.3 % (40-54); Hemoglobin 12.2 g/dL (13.0-16.5); Immature Granulocytes Count 0.140 X10^3/uL (0.0-0.0); Mean Corp Hgb Conc 31.9 g/dL (32-36); Mean Corpuscular Volume 85.3 fL (80-94); Mean Platelet Vol. 10.9 fl (6.2-12.0); NRBC Flagged by Analyzer 0 % (0-5); Platelet Count 275 K/mm3 (150-450); RBC Distribution Width CV 19.1 % (11.6-14.6); RBC Distribution Width SD 58.6 fl (35.1-43.9); Red Blood Count 4.49 M/mm3 (4.6-6.2); White Blood Count 9.8 K/mm3 (4.4-11.0)
--- NOTE | 2024-12-25 09:37 | RAD_ITS ---
PROCEDURE: ACUTE ABD INC CHEST (PORTABLE) 12/25/2024 REASON FOR EXAM: CONSTIPATION TECHNIQUE: Procedure Code: [id number]_P Modality: DX Procedure: ACUTE ABD INC CHEST (PORTABLE) COMPARISON: Recent chest radiograph. FINDINGS: Chest: Hardware and support lines: Orthopedic fixation left clavicle. Heart: Mildly enlarged. Lungs: Triangular-shaped opacity left lung base. Stable. Pleura: No pleural thickening. No pleural effusion. Mediastinum and aorta: Negative for hilar adenopathy. Mildly tortuous thoracic aorta. Bones: Age-appropriate degenerative changes of the spine. Other: Abdomen: Negative for subdiaphragmatic air. Negative for free intra-abdominal air. Surgical clips right side of the abdomen. Orthopedic fixation left hip. Normal amount of stool throughout the colon. Negative for dilated loops of large or small bowel. Age-appropriate appearance of the hips and spine. Remainder of the exam negative. RAD/Acute Abd Inc Chest (Portable) IMPRESSION: Stable left lung base atelectasis/infiltrate. Stable appearance of lungs otherwise. Radiographically negative abdomen. Reading Location: [id number]
[2024-12-25 09:48] LABS: Anion Gap 12 (5-15); BUN 32 mg/dL (4-19); BUN/Creat Ratio 32.1 RATIO (10-20); Calcium,Total 10.3 mg/dL (7.6-11.0); Carbon Dioxide 31.6 mmol/L (21.0-32.0); Chloride 102 mmol/L (98-108); Estimated Creatinine Clearance 43.24 ml/min (50-250); Glucose 106 mg/dL (70-99); Potassium 3.8 mmol/L (3.3-5.1)
[2024-12-25] MEDS: Fluticasone 0.05% 1 SPRAY NASAL.SRY NASAL ×2 (13:28→22:48)
[2024-12-25] MEDS: Acetylcysteine 800 MG/4 ML VIAL.NEB. INHALATION (19:17)
[2024-12-25] MEDS: 0.9% Saline Lock 10 ML Syringe IV (22:48)
[2024-12-26] VITALS (10 sets, daily range): BP systolic 115–178; BP diastolic 89–102; PULSE 63–95; RESP 15–20; TEMP 36.2–37; O2SAT 92–95
[2024-12-26] MEDS: Acetylcysteine 800 MG/4 ML VIAL.NEB. INHALATION ×2 (06:37→13:09)
[2024-12-26 07:44] LABS: Hematocrit 41.4 % (40-54); Hemoglobin 13.4 g/dL (13.0-16.5); Immature Granulocytes Count 0.250 X10^3/uL (0.0-0.0); Mean Corp Hgb Conc 32.4 g/dL (32-36); Mean Corpuscular Volume 83.8 fL (80-94); Mean Platelet Vol. 10.2 fl (6.2-12.0); NRBC Flagged by Analyzer 0 % (0-5); Platelet Count 320 K/mm3 (150-450); RBC Distribution Width CV 18.6 % (11.6-14.6); RBC Distribution Width SD 56.4 fl (35.1-43.9); Red Blood Count 4.94 M/mm3 (4.6-6.2); White Blood Count 8.1 K/mm3 (4.4-11.0)
[2024-12-26 08:21] LABS: Anion Gap 15 (5-15); BUN 33 mg/dL (4-19); BUN/Creat Ratio 29.9 RATIO (10-20); Calcium,Total 10.5 mg/dL (7.6-11.0); Carbon Dioxide 29.5 mmol/L (21.0-32.0); Chloride 105 mmol/L (98-108); Estimated Creatinine Clearance 38.92 ml/min (50-250); Glucose 136 mg/dL (70-99); Potassium 4.9 mmol/L (3.3-5.1)
--- NOTE | 2024-12-26 08:43 | PN.HOSP_ITS ---
Reason for Visit Chief Complaint: Shortness of breath Objective Data Objective Data Vital Signs: Vital Signs Temp Pulse Resp BP Pulse Ox O2 Del Method O2 Flow Rate 97.2 F L 72 16 115/89 H 93 Room Air 65 12/26/24 03:58 12/26/24 06:37 12/26/24 06:37 12/26/24 03:58 12/26/24 06:37 12/26/24 08:34 12/26/24 06:37 FiO2 60 12/26/24 06:37 Oxygen Flow Rate (L/min) 65 Oxygen Delivery Method Room Air Weight: 111 lb 6.4 oz Body Mass Index (BMI) 18.5 Intake & Output: Intake and Output for Last 24 Hours 12/24/24 12/25/24 12/26/24 23:59 23:59 23:59 Intake Total 200 / 200 1200 / 1200 100 / 100 Output Total 1650 / 1650 900 / 900 150 / 150 Balance -1450 / -1450 300 / 300 -50 / -50 Lab / Micro Data 12/26/24 07:25 12/26/24 07:25 Labs: Laboratory Results - last 24 hr 12/25/24 09:17: WBC 9.8, RBC 4.49 L, Hgb 12.2 L, Hct 38.3 L, MCV 85.3, MCH 27.2, MCHC 31.9 L, RDW Std Deviation 58.6 H, RDW Coeff of Dariela 19.1 H, Plt Count 275, MPV 10.9, Immature Gran % (Auto) 1.400 H, Neut % (Auto) 64.9, Lymph % (Auto) 21.8, [place] % (Auto) 11.2 H, Eos % (Auto) 0.3, Baso % (Auto) 0.4, Absolute Neuts (auto) 6.4, Absolute Lymphs (auto) 2.14, Nucleated RBC % 0, Sodium 145, Potassium 3.8, Chloride 102, Carbon Dioxide 31.6, Anion Gap 12, BUN 32 H, Creatinine 0.99, Estim Creat Clear Calc 43.24 L, Est GFR (MDRD) Non-Af 77, B UN/Creatinine Ratio 32.1 H, Glucose 106 H, Calcium 10.3 12/26/24 07:25: WBC 8.1, RBC 4.94, Hgb 13.4, Hct 41.4, MCV 83.8, MCH 27.1, MCHC 32.4, RDW Std Deviation 56.4 H, RDW Coeff of Dariela 18.6 H, Plt Count 320, MPV 10.2, Immature Gran % (Auto) 3.100 H, Neut % (Auto) 71.2 H, Lymph % (Auto) 17.7 L, [place] % (Auto) 7.4, Eos % (Auto) 0.0, Baso % (Auto) 0.6, Absolute Neuts (auto) 5.8, Absolute Lymphs (auto) 1.44, Nucleated RBC % 0, Sodium 149 H, Potassium 4.9, Chloride 105, Carbon Dioxide 29.5, Anion Gap 15, BUN 33 H, Creatinine 1.10, Estim Creat Clear Calc 38.92 L, Est GFR (MDRD) Non-Af 68, BUN/Creatinine Ratio 29.9 H, Glucose 136 H, Calcium 10.5 Micro: Microbiology 12/22/24 23:45 Blood Culture (Wb) - Right Forearm Blood Culture - Preliminary No growth in 48 hours. 12/22/24 23:59 Blood Culture (Wb) - Anticubital Left Blood Culture - Preliminary No growth in 48 hours. 12/21/24 09:00 Sputum, Expectorated/Coughed Gram Stain - Final 12/21/24 09:00 Sputum, Expectorated/Coughed Respiratory Culture - Final ESBL Escherichia coli 12/21/24 04:15 Urine, Random Legionella Antigen - Final 12/21/24 04:15 Urine, Random Streptococcus pneumoniae Antigen (M - Final 12/20/24 14:34 Mucosa - Nasopharyngeal Respiratory Panel (PCR) - Final 12/20/24 12:25 Mucosa - Nose SARS-CoV-2, Influenza & RSV (PCR) - Final Radiography Diagnostic Testing: Radiology Impression Acute Abdomen Series 12/25/24 09:37 IMPRESSION: Stable left lung base atelectasis/infiltrate. Stable appearance of lungs otherwise. Radiographically negative abdomen. Reading Location: [id number] Physical Exam Narrative Seen and examined Patient is severely malnourished. Patient still short of breath on Airvo 60% FiO2. Difficulty in coughing or phlegm, wants to eat food Today nurse informed that he has not passed BM for 1 week. Passing flatus. Dulcolax suppository and soapsuds enema ordered. Patient is NPO. Looks short of breath on Airvo 75% FiO2 Physical exam General: Alert, Oriented x3, Cooperative, BMI 18.5 kg/m? HEENT: Atraumatic, PERRLA, EOMI, Normocephalic. Oral: No Gingival or Mucosal Lesions/ Ulcerations Neck: Supple, No JVD, Negative Carotid Bruits Chest wall/Lungs: Air entry severely diminished in all lung pruett. Bilateral coarse crepitations. On Airvo Cardiovascular: Regular sinus rhythm, normal S1,S2 systolic murmur Abdomen: Bowel Sounds sluggish, soft, Non Tender, Non-Distended : No dysuria. No renal angle tenderness. No suprapubic tenderness. Extremities: No edema, Capillary Refill Less than 3 Seconds Skin: No rashes, No breakdown Musculoskeletal: Diffuse atrophy of muscles of lower extremity, upper extremity and spine. No acute tenderness to Palpation of Joints or Extremities Neurological: Cranial nerves II-XII grossly intact, DTR 2+/4. No acute focal neurological deficit. Psych/Mental Status: Flat affect Assessment & Plan Assessment/Plan (1) History of COPD: (2) Adult failure to thrive: PLAN: Plan 79-year-old gentleman was admitted with shortness of breath for past couple days, productive cough. Pulse ox 90% on room air. Wears 2 L of oxygen at baseline 1. Acute on chronic hypoxic respiratory failure secondary to pneumonia and severe COPD exacerbation complicated with dysphagia-continue aerosol treatments and IV Solu-Medrol, pulse ox will be monitored, again respiratory culture grew out ESBL E. coli, patient was changed to meropenem DC IV Solu-Medrol and changed to prednisone. 12/25: Patient respiratory status similar to yesterday. Short of breath, weak cough reflex, not able to cough out mucus. Nursing reported that she is not safe to allow oral even for medications therefore prednisone changed to IV Solu- Medrol. Mucomyst with DuoNeb ordered as mucolytic agent 12/26: Patient respiratory status is same with no improvement. Not able to cough out very weak cough reflex. Patient's family agreed for palliative hospice care consult. Hospice was consulted and family decided for home with hospice care. #2 bibasilar pneumonia-patient is currently on IV meropenem, organism is ESBL E. coli 12/25: Chest x-ray shows bibasilar airspace opacity and atelectasis. Mild cardiomegaly and mild pulmonary vascular congestion. IV fluid that was started yesterday discontinued #3 failure to thrive/self-neglect: Patient has lost significant weight, severe protein calorie malnutrition, difficulty in sitting up in the bed by himself. Decreased muscle mass in lower extremities, upper extremities, paraspinal, craniofacial and chest wall muscles. Exact amount of weight loss is unclear but patient had significant weight loss. Nutritional services will see the patient, he may need short-term placement in a [facility] facility. 12/26: Patient has been n.p.o. for 3 days for dysphagia evaluation. High risk of aspiration. Swallow study will be done on 12/27. In the meantime TPN is started with electrolytes after discussion with vocational education teacher #4 chronic depression-patient is on Prozac and lamotrigine #5 essential hypertension-patient is on Norvasc #6 hyperlipidemia-patient is on Lipitor #7 dysphagia-patient is having swallowing difficulties, speech saw the patient and is maintaining an n.p.o. status except for meds with applesauce, modified barium swallow on Thursday Started on D5W at 50 mL/h for nutritional purposes. Sodium and potassium in normal range. plan DC IV fluid. 8. Severe constipation: Abdominal x-ray does not show features of ileus or bowel obstruction. Nonspecific gas shadow. Reported radiographically negative acute abdomen. Patient's sister next of kin her sister, Mrs. Mckeon called to the PCU and I talked to her yesterday. She another family member discussed with the hospice nurse and agreed for home with hospice care. Accordingly CODE STATUS changed to DNR CC home hospice care Clinical Impression(s) from Imaging Studies Chest CTA 12/20/24 09:49 IMPRESSION: Bibasilar pulmonary infiltrates. No pulmonary embolism. Increased kyphosis with multiple compression fractions of the visualized thoracic and upper lumbar spine. Echocardiogram 12/22/24 14:17 Interpretation Summary The estimated ejection fraction is 65 %. Diastolic function is indeterminate. Chest X-Ray 12/22/24 14:22 IMPRESSION: 1. Bibasilar airspace opacities and atelectasis. 2. Mild cardiomegaly and mild pulmonary vascular congestion. Acute Abdomen Series 12/25/24 09:37 IMPRESSION: Stable left lung base atelectasis/infiltrate. Stable appearance of lungs otherwise. Radiographically negative abdomen. Charges/Coding Visit Charges Inpatient E&M: 91957 Subs Hosp L3
[2024-12-26] MEDS: Meropenem 1 GM in 0.9% Normal Saline (100mL MB+) 100 ML IV ×2 (10:29→22:37)
[2024-12-26] MEDS: Heparin Injection (Vial) 5,000 UNIT/ML VIAL 5000 UNIT SC ×2 (10:30→22:38)
[2024-12-26] MEDS: Fluticasone 0.05% 1 SPRAY NASAL.SRY NASAL ×2 (10:30→22:39)
[2024-12-26] MEDS: Memantine Hydrochloride 10 MG Tablet PO ×2 (10:32→22:38)
--- NOTE | 2024-12-26 13:15 | PCM.CONS.P ---
[facility] Medical History History of ESBL E. coli infection Marijuana smoker, episodic Epilepsy Muscle wasting and atrophy, not elsewhere classified, back, unspecified level Insomnia Dysphagia Wernickes encephalopathy BPH (benign prostatic hyperplasia) COPD (chronic obstructive pulmonary disease) CKD (chronic kidney disease) Severe protein-calorie malnutrition Flu vaccine need Cerumen impaction Nausea vomiting and diarrhea Change in mental status Anxiety Vitamin D deficiency History of alcohol abuse History of fracture of clavicle History of kidney stones IBS (irritable bowel syndrome) GERD (gastroesophageal reflux disease) Depression Anemia Hypertension Seizure disorder Home Medications ?Medication ?Instructions ?Recorded ?Last Taken ?Type fluoxetine 20 mg capsule 20 mg PO DAILY DEPRESSION #90 caps 08/07/20 11/11/23 Rx lamotrigine 150 mg tablet 150 mg PO BID #60 tabs 07/15/21 11/11/23 Rx ondansetron HCl 4 mg tablet 4 mg PO TID PRN nausea and 07/15/21 Unknown Rx vomiting #90 tabs omeprazole 40 mg capsule,delayed 40 mg PO DAILY GERD #90 caps 07/19/21 11/11/23 Rx release tamsulosin 0.4 mg capsule 0.4 mg PO DAILY@1830 prostate #180 08/16/21 11/11/23 Rx caps memantine 10 mg tablet See Rx Instructions .Route 01/31/22 11/11/23 Rx .COMPLEX #56 tabs folic acid 1 mg tablet 1 mg PO BREAKFAST #0 tabs 02/01/22 11/11/23 Rx polyethylene glycol 3350 17 gram 34 g PO DAILY #0 ea 02/01/22 Unknown Rx oral powder packet mirtazapine 7.5 mg tablet 15 mg PO QHS mood 01/06/23 11/11/23 History montelukast 10 mg tablet 10 mg PO QHS breathing 01/06/23 11/11/23 History acetaminophen 500 mg tablet 1,000 mg PO .noon PRN fever or pain 11/12/23 11/11/23 History (Acetaminophen Extra Strength) acetaminophen 500 mg tablet 1,000 mg PO BID pain/ scheduled med 11/12/23 11/11/23 History (Acetaminophen Extra Strength) atorvastatin 20 mg tablet 20 mg PO DAILY cholesterol 11/12/23 11/11/23 History clonazepam 0.5 mg tablet 0.5 mg PO Q8H anxiety 11/12/23 11/11/23 History diclofenac sodium 1 % topical gel 1 ea topical BID arthritis pain 11/12/23 11/11/23 History (Aleve (diclofenac)) guaifenesin 400 mg tablet (Chest 400 mg PO TID PRN chest congestion 11/12/23 11/11/23 History Congestion Relief) fluticasone propionate 50 1 spray NASAL BID #0 grams 11/13/23 Unknown Rx mcg/actuation nasal spray,suspension amlodipine 5 mg tablet 10 mg PO DAILY BP 12/20/24 Unknown History OXYGEN - Supplemental ([facility] 12/22/24 Unknown History INFORMATIONAL USE ONLY) Allergy/AdvReac Type Severity Reaction Status Date / Time bupropion HCl (From Allergy SHAKING Verified 11/30/24 09:02 Wellbutrin) quetiapine fumarate (From Allergy Unknown Verified 11/30/24 09:02 Seroquel) trazodone AdvReac SHAKING Verified 11/30/24 09:02 Family History Mother Cancer Breast cancer Hypertension Father Cancer Hypertension Other Anemia Anxiety Depression Osteoporosis Surgical History History of hip surgery History of intestinal surgery History of tonsillectomy Social History (Updated 12/20/24 @ 13:24 by Fabiola Garza) household members: none housing: assisted living facility Smoking Status: Former smoker Tobacco: How many years used: 50 alcohol intake: former year quit: 2019 substance use type: marijuana what type of physical activity do you participate in: none Homelessness:: Sheltered ROS Constitutional Constitutional: Reports anorexia, change in weight and weakness Eyes Eyes: Reports systems reviewed and no addt'l complaints, except as documented ENT HEENT: Reports systems reviewed and no addt'l complaints, except as documented Cardiovascular Cardiovascular: Reports systems reviewed and no addt'l complaints, except as documented Respiratory/Chest Respiratory/Chest: Reports dusky skin and dyspnea Gastrointestinal Gastrointestinal: Reports other Details: NPO Genitourinary Genitourinary: Reports systems reviewed and no addt'l complaints, except as documented Musculoskeletal Musculoskeletal: Reports systems reviewed and no addt'l complaints, except as documented Integumentary Integumentary: Reports systems reviewed and no addt'l complaints, except as documented Neurologic Neurologic: Reports systems reviewed and no addt'l complaints, except as documented Psychiatric Psychiatric: Reports systems reviewed and no addt'l complaints, except as documented Endocrine Endocrinology: Reports systems reviewed and no addt'l complaints, except as documented Hematologic/Lymphatic Hematologic/Lymphatic: Reports systems reviewed and no addt'l complaints, except as documented Allergic/Immunologic Allergic/Immunologic: Reports systems reviewed and no addt'l complaints, except as documented Physical Exam Const alert and oriented x3 HEENT normocephalic Lymph Lymphatic: no lymphadenopathy noted Resp Effort and Inspection: tachypneic and uses accessory muscles Auscultation: wheezes and diminished lung sounds Cardio regular rate Cardio Narrative: hypertension GI Auscultation: hypoactive bowel sounds Extremity Extremity Narrative: > 2 sec Skin no rashes or lesions noted Neuro Neuro Narrative: aao x 3 Speech: speech abnormal Details: Positive for other (Dysarthric related to missing teeth) Psych Psych Narrative: Patient denies depression. He is anxious to get out of the hospital. Mood & Affect: anxious Charges/Coding Palliative Care Palliative Care: 70020 New Pt Consult 60-79 min HPI Current admission Current Code Status: DNRCC-A no intubation Associated Diagnosis: Severe COPD and PNA Consult Data Date of Consult: 12/26/24 Location of consult: PCU Reason for referral: goals of care Referral source: Palliative care diagnosis (Summary list): severe COPD Palliative care services/treatment (Accepted, as consult): accepted Case discussed with referring provider: Patient's desire to return home on hospice HPI Narrative HPI Narrative: 12/26/24: Prior to meeting with the patient at bedside I reviewed documentation labs and radiological studies, I then met with the patient, Ana at bedside. I introduced myself and the concept of palliative care in which she voluntarily excepted our services. Ana is very cachectic appearing with hollowed temporal region and very little subclavicular adipose tissue. He has a BMI of 18.5. He is currently n.p.o. for a failed swallow study. He is currently on Airvo 65 L and 65%. He did continually take off his high flow nasal cannula and his oxygen saturations would immediately decrease to the mid 80s. Ana has been n.p.o. x 4 days related to dysphagia. I did ask Ana orientation questions in which he was oriented x 4. I asked him if he would like me to contact his sister and he said why would you do that she is a damn Republican. Thus I did not contact his sister for discussion. We did discuss Ana's goals of care going forward in which she states that he wants to return home. I asked him how he was feeling about being in the hospital and he states how would you feel. We then discussed the possibility of hospice in which she states that he would like to go on hospice and return home. We then discussed if he had people home to help him and he stated that his sister could help some but he lives in an assisted living facility. He does state that he has VA benefits. Patient was very adamant that he is tired of being in the hospital and tired of aggressive medical management. I then reached out to the hospitalist to let him know what the wishes of Ana are as well as case management updated. They did contact the assisted living facility in which they do have hospice services that they utilize. All questions were answered. ANA RIVERA, is a 79 M who presents to the emergency room at [facility] with complaints of shortness of breath. Patient is on chronic oxygen at home, he states he uses 2 to 3 L via nasal cannula. Patient lives in assisted living. CTA of the chest showed bibasilar infiltrates, patient's white blood cell count was elevated at 14,000, chemistry profile was unremarkable. Patient required Airvo to maintain his pulse ox above 90%. Patient will be admitted to PCU, he will receive aerosol treatments and IV Solu-Medrol, patient was given IV Rocephin and Zithromax in the emergency room, I have decided to change the patient over to IV Levaquin tomorrow. I had a discussion with the patient regarding his CODE STATUS, he states that if his heart stops or he quits breathing he does not want anything done. Patient appears very cachectic and he does not appear to be taking care of himself, he may require placement in a fdc facility at the time of discharge from the hospital. Palliative Assessment Advanced Directive - Current Admission Advance Directive: Advance Directive ON ADMISSION - REFERENCE Do you have a Healthcare Yes 12/20/24 13:19 Living Will? Is a Healthcare Living Will No, requested patient 12/20/24 13:19 present in the medical record? safety representative bring copy into [facility] Do you have a Healthcare Power Yes 12/20/24 13:19 of Stores Laborer? Is a Healthcare Power of No, requested patient 12/20/24 13:19 Stores Laborer present in the safety representative bring copy medical rec into [facility] Name of Medical Power of Linda Tierney-sister 12/20/24 13:19 Stores Laborer Do You Want Additional Declined 12/20/24 13:19 Information on Advanced Directives or Healthcare Proxy/DPOA comments: Sister Linda. [phone]- Psychosocial/Spiritual Information Living situation/Marital status: He lives in assisted living Geographic location: [place] Supports: Family and staff at his assisted living Spiritual distress: Denies Prior functional status: Was able to do most of his own ADLs Cultrual issues: None Information about the patient as a person: Patient is a very proud [employer] vet. He does endorse that he smokes marijuana at home, on occasion. He enjoys watching television Symptoms Palliative performance scale: 20 Palliative prognostic index: 10.0 (if the PPI is greater than 6.0, survival is less than 3 weeks) Dyspnea symptoms: Severe Constipation symptoms: Severe Nausea symptoms: None Vomiting symptoms: None Depression symptoms: Mild Anorexia symptoms: Severe Cough symptoms: Moderate Insomnia symptoms: None Diarrhea symptoms: None Fatigue symptoms: Moderate Weakness symptoms: Moderate Confusion symptoms: None Objective Data Objective Data Vital Signs: Vital Signs Temp Pulse Resp BP Pulse Ox O2 Del Method O2 Flow Rate 98.6 F 93 16 178/102 H 92 Airvo 65 12/26/24 09:00 12/26/24 13:09 12/26/24 13:09 12/26/24 09:00 12/26/24 13:09 12/26/24 09:00 12/26/24 09:00 FiO2 65 12/26/24 13:09 Oxygen Flow Rate (L/min) 65 Oxygen Delivery Method Airvo Weight: 111 lb 6.4 oz Body Mass Index (BMI) 18.5 Intake & Output: Intake and Output for Last 24 Hours 12/24/24 12/25/24 12/26/24 23:59 23:59 23:59 Intake Total 200 / 200 1200 / 1200 100 / 100 Output Total 1650 / 1650 900 / 900 150 / 150 Balance -1450 / -1450 300 / 300 -50 / -50 Lab / Micro Data Attestation: I reviewed the patient's lab results. 12/26/24 07:25 12/26/24 07:25 Labs: Laboratory Results - last 24 hr 12/26/24 07:25: WBC 8.1, RBC 4.94, Hgb 13.4, Hct 41.4, MCV 83.8, MCH 27.1, MCHC 32.4, RDW Std Deviation 56.4 H, RDW Coeff of Dariela 18.6 H, Plt Count 320, MPV 10.2, Immature Gran % (Auto) 3.100 H, Neut % (Auto) 71.2 H, Lymph % (Auto) 17.7 L, Bullock % (Auto) 7.4, Eos % (Auto) 0.0, Baso % (Auto) 0.6, Absolute Neuts (auto) 5.8, Absolute Lymphs (auto) 1.44, Nucleated RBC % 0, Sodium 149 H, Potassium 4.9, Chloride 105, Carbon Dioxide 29.5, Anion Gap 15, BUN 33 H, Creatinine 1.10, Estim Creat Clear Calc 38.92 L, Est GFR (MDRD) Non-Af 68, BUN/Creatinine Ratio 29.9 H, Glucose 136 H, Calcium 10.5 Micro: Microbiology 12/22/24 23:45 Blood Culture (Wb) - Right Forearm Blood Culture - Preliminary No growth in 48 hours. 12/22/24 23:59 Blood Culture (Wb) - Anticubital Left Blood Culture - Preliminary No growth in 48 hours. 12/21/24 09:00 Sputum, Expectorated/Coughed Gram Stain - Final 12/21/24 09:00 Sputum, Expectorated/Coughed Respiratory Culture - Final ESBL Escherichia coli 12/21/24 04:15 Urine, Random Legionella Antigen - Final 12/21/24 04:15 Urine, Random Streptococcus pneumoniae Antigen (M - Final 12/20/24 14:34 Mucosa - Nasopharyngeal Respiratory Panel (PCR) - Final 12/20/24 12:25 Mucosa - Nose SARS-CoV-2, Influenza & RSV (PCR) - Final Rhythm Strip Rhythm Strip: Sinus Tach Social Homelessness:: Sheltered Impressions & Recommendations Patient & Family Issues discussed with the patient and family: Goals of care going forward Patient goal: Patient states that he wants to go back to his assisted living facility with hospice services Family goal: No family available Ethical & Legal Ethical and legal: Patient is alert and oriented and able to make his own decisions Recommentation Palliative recommendations: Recommend home hospice services per patient request Encouter Achieved as a result of this Palliative Care Encounter: [[id number], [phone] ] minutes were spent in total for this visit which consisted, primarily of counseling and education dealing with the complex and emotionally intense issues of symptom management and palliative care in the setting of serious and potentially life-threatening illness. Review of documentation, labs and radiological studies. ?Patient/family had the opportunity to ask questions Plan (1) Right lower lobe pneumonia: PLAN: Medical management per primary team (2) Hypoxia: PLAN: Medical management per primary team Recommend low-dose Roxanol for shortness of breath (3) Adult failure to thrive: PLAN: Liberalize diet as patient understands possibilities of aspiration on comfort measures. (4) Palliative care encounter: PLAN: Patient has elected to return home with hospice services.
--- NOTE | 2024-12-26 14:06 | CASEMGMT ---
Social Work Pt met w/Breanne, HEADING MACHINE OPERATOR w/palliative care. Pt would like to return to [facility] on hospice. SW called [facility], spoke w/Stacy. Pt can return to [facility] on hospice. They use [facility], but they do not have a preference, it is up to the pt. SW spoke w/the pt in room, he is agreeable to a hospice referral, also told SW he wants to return to [facility]. SW spoke w/pt about which agency, pt does not have a preference. Pt agreeable to referral to [facility]. SW will make a referral to [facility] both for continuity of care, and in the event pt actually needs to go to the [facility]. SW called [facility], referral made and information faxed. They are to call SW back with a time the meeting. SW will continue to follow. OMAR Koroma
--- NOTE | 2024-12-26 15:23 | CASEMGMT ---
Social Work SW spoke w/[facility], the meeting is set up for 12/27/24 between 1:30-2:00pm. OMAR Koroma
--- NOTE | 2024-12-26 15:59 | CASEMGMT ---
Social Work SW called [facility] to update them that hospice will see pt tomorrow. SW spoke w/RN, she does not think pt would actually be able to return to [facility] on hospice as they do not have nursing at night. APOORVA will continue to follow. OMAR Koroma
--- NOTE | 2024-12-26 19:32 | CPS ---
pt has a weak cough, mucus is very loose. Pt is is unable to expectorate effectively
[2024-12-27] VITALS (8 sets, daily range): BP systolic 125–152; BP diastolic 83–99; PULSE 65–89; RESP 17–20; TEMP 36.6–36.8; O2SAT 91–97; BMI 17.2
[2024-12-27] MEDS: 0.9% Saline Lock 10 ML Syringe IV ×3 (06:20→14:08)
[2024-12-27] MEDS: Heparin Injection (Vial) 5,000 UNIT/ML VIAL 5000 UNIT SC (10:34)
[2024-12-27] MEDS: Fluticasone 0.05% 1 SPRAY NASAL.SRY NASAL (10:34)
[2024-12-27] MEDS: Memantine Hydrochloride 10 MG Tablet PO (10:35)
[2024-12-27] MEDS: Meropenem 1 GM in 0.9% Normal Saline (100mL MB+) 100 ML IV (10:39)
--- NOTE | 2024-12-27 15:00 | PN.HOSP_ITS ---
Reason for Visit Chief Complaint: Shortness of breath Objective Data Objective Data Vital Signs: Vital Signs Temp Pulse Resp BP Pulse Ox O2 Del Method O2 Flow Rate 98 F 65 20 H 142/99 H 97 Airvo 65 12/27/24 10:30 12/27/24 12:45 12/27/24 12:45 12/27/24 10:30 12/27/24 12:45 12/27/24 10:30 12/27/24 10:30 FiO2 70 12/27/24 12:45 Oxygen Flow Rate (L/min) 65 Oxygen Delivery Method Airvo Weight: 103 lb 6.349 oz Body Mass Index (BMI) 17.2 Intake & Output: Intake and Output for Last 24 Hours 12/25/24 12/26/24 12/27/24 23:59 23:59 23:59 Intake Total 1200 / 1200 800 / 800 200 / 200 Output Total 900 / 900 350 / 750 750 / 750 Balance 300 / 300 450 / 50 -550 / -550 Medical Nutrition Assessment Dietitian: Malnutrition Criteria Met Start: 12/27/24 14:24 Freq: Status: Active Protocol: Document 12/27/24 14:25 SB (Rec: 12/27/24 14:25 SB [id number]) Nutrition Malnutrition Evidence of Yes Malnutrition Exists Malnutrition (severe Acute Illness/Injury ): Evidenced By Suboptimal Energy Intake (Severe),Weight Loss (Severe) Intake Problem Inadequate Oral Intake Etiology related to need for MBSS and FEES Signs/Symptoms as evidenced by prolonged NPO (4 days) Status Active Problem Clinical Problem Acute Disease or Injury Related Malnutrition Etiology severe related to inadequate oral intake Signs/Symptoms as evidenced by 10% unintentional weight loss x 1 week and PO meeting <75% of estimated nutrition needs x 1 week with prolonged NPO x 4 days, BMI 17.2kg/m2. Status Active Problem Chronic Disease or Condition Related Malnutrition Status Inactive Problem Recommendation Dietitian Continue liberal regular diet due to pt meeting with Recommendations/ hospice. Changes Will provided nutrition recommendation/ONS as needed, based on pt's decision with hospice. Lab / Micro Data 12/26/24 07:25 12/26/24 07: Micro: Microbiology 12/22/24 23:45 Blood Culture (Wb) - Right Forearm Blood Culture - Preliminary No growth in 48 hours. 12/22/24 23:59 Blood Culture (Wb) - Anticubital Left Blood Culture - Preliminary No growth in 48 hours. 12/21/24 09:00 Sputum, Expectorated/Coughed Gram Stain - Final 12/21/24 09:00 Sputum, Expectorated/Coughed Respiratory Culture - Final ESBL Escherichia coli 12/21/24 04:15 Urine, Random Legionella Antigen - Final 12/21/24 04:15 Urine, Random Streptococcus pneumoniae Antigen (M - Final 12/20/24 14:34 Mucosa - Nasopharyngeal Respiratory Panel (PCR) - Final 12/20/24 12:25 Mucosa - Nose SARS-CoV-2, Influenza & RSV (PCR) - Final Rhythm Strip Rhythm Strip: Sinus Tach Social Homelessness:: Sheltered Physical Exam Narrative Seen and examined Patient is still short of breath. On Airvo FiO2 70%. Respiratory rate 18 to 20/min. Patient is severely malnourished. Difficulty in coughing or phlegm, wants to eat food Has moved bowels yesterday. Physical exam General: Alert, Oriented x3, Cooperative, BMI 18.5 kg/m? HEENT: Atraumatic, PERRLA, EOMI, Normocephalic. Oral: No Gingival or Mucosal Lesions/ Ulcerations Neck: Supple, No JVD, Negative Carotid Bruits Chest wall/Lungs: Air entry severely diminished in all lung pruett. Weak cough reflex. Bilateral coarse crepitations. On Airvo Cardiovascular: Regular sinus rhythm, normal S1,S2 systolic murmur Abdomen: Bowel Sounds sluggish, soft, Non Tender, Non-Distended : No dysuria. No renal angle tenderness. No suprapubic tenderness. Extremities: No edema, Capillary Refill Less than 3 Seconds Skin: No rashes, No breakdown Musculoskeletal: Diffuse atrophy of muscles of lower extremity, upper extremity and spine. No acute tenderness to Palpation of Joints or Extremities Neurological: Cranial nerves II-XII grossly intact, DTR 2+/4. No acute focal neurological deficit. Psych/Mental Status: Flat affect Assessment & Plan Assessment/Plan (1) History of COPD: (2) Adult failure to thrive: PLAN: Plan 79-year-old gentleman was admitted with shortness of breath for past couple days, productive cough. Pulse ox 90% on room air. Wears 2 L of oxygen at baseline 1. Acute on chronic hypoxic respiratory failure secondary to pneumonia and severe COPD exacerbation complicated with dysphagia-continue aerosol treatments and IV Solu-Medrol, pulse ox will be monitored, again respiratory culture grew out ESBL E. coli, patient was changed to meropenem DC IV Solu-Medrol and changed to prednisone. 12/25: Patient respiratory status similar to yesterday. Short of breath, weak cough reflex, not able to cough out mucus. Nursing reported that she is not safe to allow oral even for medications therefore prednisone changed to IV Solu- Medrol. Mucomyst with DuoNeb ordered as mucolytic agent 12/26: Patient respiratory status is same with no improvement. Not able to cough out very weak cough reflex. Patient's family agreed for palliative hospice care consult. Hospice was consulted and family decided for home with hospice care. 12/27: Hospice meeting with the patient's family today for end-of-life goal. Further swallow study and IV nutrition, TPN was discontinued yesterday as the patient and family accepted for hospice care #2 bibasilar pneumonia-patient is currently on IV meropenem, organism is ESBL E. coli 12/25: Chest x-ray shows bibasilar airspace opacity and atelectasis. Mild cardiomegaly and mild pulmonary vascular congestion. IV fluid that was started yesterday discontinued #3 failure to thrive/self-neglect: Patient has lost significant weight, severe protein calorie malnutrition, difficulty in sitting up in the bed by himself. Decreased muscle mass in lower extremities, upper extremities, paraspinal, craniofacial and chest wall muscles. Exact amount of weight loss is unclear but patient had significant weight loss. Nutritional services will see the patient, he may need short-term placement in a custodial facility. 12/26: Patient has been n.p.o. for 3 days for dysphagia evaluation. High risk of aspiration. Swallow study will be done on 12/27. In the meantime TPN is started with electrolytes after discussion with marshmallow machine worker 12/27: Pleasure feedings started yesterday with known risk of aspiration as patient and family agreed for hospice care. CODE STATUS was changed to DNR CC on 12/26 #4 chronic depression-patient is on Prozac and lamotrigine #5 essential hypertension-patient is on Norvasc #6 hyperlipidemia-patient is on Lipitor #7 dysphagia-patient is having swallowing difficulties, speech saw the patient and is maintaining an n.p.o. status except for meds with applesauce, modified barium swallow on Thursday Started on D5W at 50 mL/h for nutritional purposes. Sodium and potassium in normal range. 9/send plan DC IV fluid. 8. Severe constipation: Abdominal x-ray does not show features of ileus or bowel obstruction. Nonspecific gas shadow. Reported radiographically negative acute abdomen. Patient's sister next of kin her sister, Mrs. Mckeon called to the PCU and I talked to her yesterday. She another family member discussed with the hospice nurse and agreed for home with hospice care. Accordingly CODE STATUS changed to DNR CC home hospice care Clinical Impression(s) from Imaging Studies Chest CTA 12/20/24 09:49 IMPRESSION: Bibasilar pulmonary infiltrates. No pulmonary embolism. Increased kyphosis with multiple compression fractions of the visualized thoracic and upper lumbar spine. Echocardiogram 12/22/24 14:17 Interpretation Summary The estimated ejection fraction is 65 %. Diastolic function is indeterminate. Chest X-Ray 12/22/24 14:22 IMPRESSION: 1. Bibasilar airspace opacities and atelectasis. 2. Mild cardiomegaly and mild pulmonary vascular congestion. Acute Abdomen Series 12/25/24 09:37 IMPRESSION: Stable left lung base atelectasis/infiltrate. Stable appearance of lungs otherwise. Radiographically negative abdomen. Charges/Coding Visit Charges Inpatient E&M: 59711 Subs Hosp L2
--- NOTE | 2024-12-27 15:35 | PCM.DC.SUM ---
Providers Date of Admission: 12/20/24 Date of Discharge: 12/27/24 Primary Care Physician: Dr. Shiva Zamarripa MD Consultations 12/23/24 07:23 Consult: Installer Technician / Pulmonary Medicine Routine Consulting Provider: Intensivists/Pulmonary Med Reason for Consult: Respiratory failure EMERGENT Consult: No Notified: Yes Date Notified: 12/23/24 Time Notified: 07:56 Method of Notification: Text 12/26/24 09:35 Consult: Inpatient Palliative Care Routine Consulting Provider: Breanne Ibarra Reason for Consult: goals of care EMERGENT Consult: No MD Notified: Yes Date Notified: 12/26/24 Time Notified: 09:35 Method of Notification: Verbal Method of Consult:: In-Person 12/26/24 14:02 Consult: Hospice / Outpatient Palliative Care Routine Consulting Provider: [facility] Reason for Consult: COPD on HFNC, failed swallow EMERGENT Consult: Yes MD Notified: Yes Date Notified: 12/26/24 Time Notified: 14:02 Method of Notification: Text Reason For Visit: PNEUMONIA, HYPOXIA, RESPIRATORY FAILURE Diagnosis Discharge Diagnosis (1) History of COPD: Status: Chronic Code(s): Z87.09 - Personal history of other diseases of the respiratory system (2) Adult failure to thrive: Status: Acute Code(s): R62.7 - Adult failure to thrive Plan 79-year-old gentleman was admitted with shortness of breath for past couple days, productive cough. Pulse ox 90% on room air. Wears 2 L of oxygen at baseline 1. Acute on chronic hypoxic respiratory failure secondary to pneumonia and severe COPD exacerbation complicated with dysphagia-continue aerosol treatments and IV Solu-Medrol, pulse ox will be monitored, again respiratory culture grew out ESBL E. coli, patient was changed to meropenem DC IV Solu-Medrol and changed to prednisone. 12/25: Patient respiratory status similar to yesterday. Short of breath, weak cough reflex, not able to cough out mucus. Nursing reported that she is not safe to allow oral even for medications therefore prednisone changed to IV Solu-Medrol. Mucomyst with DuoNeb ordered as mucolytic agent 12/26: Patient respiratory status is same with no improvement. Not able to cough out very weak cough reflex. Patient's family agreed for palliative hospice care consult. Hospice was consulted and family decided for home with hospice care. 12/27: Hospice meeting with the patient's family today for end-of-life goal. Further swallow study and IV nutrition, TPN was discontinued yesterday as the patient and family accepted for hospice care Patient is accepted to inpatient hospice unit and getting transferred today. Further care as per the hospice physician. Patient has been on antibiotics since 12/20 and changed to meropenem on 12/23 for ESBL E. coli pneumonia. Will recommend 3 more days of IV meropenem to complete 7 days course. #2 bibasilar pneumonia-patient is currently on IV meropenem, organism is ESBL E. coli 12/25: Chest x-ray shows bibasilar airspace opacity and atelectasis. Mild cardiomegaly and mild pulmonary vascular congestion. IV fluid that was started yesterday discontinued #3 failure to thrive/self-neglect: Patient has lost significant weight, severe protein calorie malnutrition, difficulty in sitting up in the bed by himself. Decreased muscle mass in lower extremities, upper extremities, paraspinal, craniofacial and chest wall muscles. Exact amount of weight loss is unclear but patient had significant weight loss. Nutritional services will see the patient, he may need [facility] a [facility] facility. 12/26: Patient has been n.p.o. for 3 days for dysphagia evaluation. High risk of aspiration. Swallow study will be done on 12/27. In the meantime TPN is started with electrolytes after discussion with net fisher 12/27: Pleasure feedings started yesterday with known risk of aspiration as patient and family agreed for hospice care. CODE STATUS was changed to DNR CC on 12/26 #4 chronic depression-patient is on Prozac and lamotrigine #5 essential hypertension-patient is on Norvasc #6 hyperlipidemia-patient is on Lipitor #7 dysphagia-patient is having swallowing difficulties, speech saw the patient and is maintaining an n.p.o. status except for meds with applesauce, modified barium swallow on Thursday Started on D5W at 50 mL/h for nutritional purposes. Sodium and potassium in normal range. plan DC IV fluid. 8. Severe constipation: Abdominal x-ray does not show features of ileus or bowel obstruction. Nonspecific gas shadow. Reported radiographically negative acute abdomen. Patient's sister next of kin her sister, Mrs. Mckeon called to the PCU and I talked to her yesterday. She another family member discussed with the hospice nurse and agreed for home with hospice care. Accordingly CODE STATUS changed to DNR CC home hospice care. DNRCC papers signed Discharge medication reconciliation done. Discharge follow-up instructions completed. Discharge process discussed with the patient and all questions were answered to patient's satisfaction. Follow with PCP in 1 to 2 weeks Total time spent, exact 35 minutes on discharge meds reconciliation, examination, coordination of care with nurses and ancillary staff, review of imaging and blood test and discussion with the patient on follow-up instructions. Clinical Impression(s) from Imaging Studies Chest CTA 12/20/24 09:49 IMPRESSION: Bibasilar pulmonary infiltrates. No pulmonary embolism. Increased kyphosis with multiple compression fractions of the visualized thoracic and upper lumbar spine. Echocardiogram 12/22/24 14:17 Interpretation Summary The estimated ejection fraction is 65 %. Diastolic function is indeterminate. Chest X-Ray 12/22/24 14:22 IMPRESSION: 1. Bibasilar airspace opacities and atelectasis. 2. Mild cardiomegaly and mild pulmonary vascular congestion. Acute Abdomen Series 12/25/24 09:37 IMPRESSION: Stable left lung base atelectasis/infiltrate. Stable appearance of lungs otherwise. Radiographically negative abdomen. Medications at Discharge Home Medications fluoxetine 20 mg capsule 20 mg PO DAILY DEPRESSION #90 caps 08/07/20 lamotrigine 150 mg tablet 150 mg PO BID #60 tabs 07/15/21 ondansetron HCl 4 mg tablet 4 mg PO TID PRN nausea and vomiting #90 tabs 07/15/21 omeprazole 40 mg capsule,delayed release 40 mg PO DAILY GERD #90 caps 07/19/21 tamsulosin 0.4 mg capsule 0.4 mg PO DAILY@1830 prostate #180 caps 08/16/21 memantine 10 mg tablet See Rx Instructions .Route .COMPLEX #56 tabs 01/31/22 folic acid 1 mg tablet 1 mg PO BREAKFAST #0 tabs 02/01/22 polyethylene glycol 3350 17 gram oral powder packet 34 g PO DAILY #0 ea 02/01/22 mirtazapine 7.5 mg tablet 15 mg PO QHS mood 01/06/23 montelukast 10 mg tablet 10 mg PO QHS breathing 01/06/23 acetaminophen 500 mg tablet (Acetaminophen Extra Strength) 1,000 mg PO .noon PRN fever or pain 11/12/23 acetaminophen 500 mg tablet (Acetaminophen Extra Strength) 1,000 mg PO BID pain/ scheduled med 11/12/23 atorvastatin 20 mg tablet 20 mg PO DAILY cholesterol 11/12/23 clonazepam 0.5 mg tablet 0.5 mg PO Q8H anxiety 11/12/23 diclofenac sodium 1 % topical gel (Aleve (diclofenac)) 1 ea topical BID arthritis pain 11/12/23 guaifenesin 400 mg tablet (Chest Congestion Relief) 400 mg PO TID PRN chest congestion 11/12/23 fluticasone propionate 50 mcg/actuation nasal spray,suspension 1 spray NASAL BID #0 grams 11/13/23 amlodipine 5 mg tablet 10 mg PO DAILY BP 12/20/24 OXYGEN - Supplemental ([facility] INFORMATIONAL USE ONLY) 12/22/24 Physical Exam Narrative Please see today's progress note for the physical exam findings. Medical Records Data Medical Nutrition Assessment Dietitian: Malnutrition Criteria Met Start: 12/27/24 14:24 Freq: Status: Active Protocol: Document 12/27/24 14:25 SB (Rec: 12/27/24 14:25 SB [id number]) Nutrition Malnutrition Evidence of Yes Malnutrition Exists Malnutrition (severe Acute Illness/Injury ): Evidenced By Suboptimal Energy Intake (Severe),Weight Loss (Severe) Intake Problem Inadequate Oral Intake Etiology related to need for MBSS and FEES Signs/Symptoms as evidenced by prolonged NPO (4 days) Status Active Problem Clinical Problem Acute Disease or Injury Related Malnutrition Etiology severe related to inadequate oral intake Signs/Symptoms as evidenced by 10% unintentional weight loss x 1 week and PO meeting <75% of estimated nutrition needs x 1 week with prolonged NPO x 4 days, BMI 17.2kg/m2. Status Active Problem Chronic Disease or Condition Related Malnutrition Status Inactive Problem Recommendation Dietitian Continue liberal regular diet due to pt meeting with Recommendations/ hospice. Changes Will provided nutrition recommendation/ONS as needed, based on pt's decision with hospice. Homelessness:: Sheltered Weight / BMI Weight Weight: 103 lb 6.349 oz Body Mass Index (BMI) 17.2 ABG / Lab / Microbiology Data 12/26/24 07:25 12/26/24 07:25 Microbiology: Microbiology 12/22/24 23:45 Blood Culture (Wb) - Right Forearm Blood Culture - Preliminary No growth in 48 hours. 12/22/24 23:59 Blood Culture (Wb) - Anticubital Left Blood Culture - Preliminary No growth in 48 hours. 12/21/24 09:00 Sputum, Expectorated/Coughed Gram Stain - Final 12/21/24 09:00 Sputum, Expectorated/Coughed Respiratory Culture - Final ESBL Escherichia coli 12/21/24 04:15 Urine, Random Legionella Antigen - Final 12/21/24 04:15 Urine, Random Streptococcus pneumoniae Antigen (M - Final 12/20/24 14:34 Mucosa - Nasopharyngeal Respiratory Panel (PCR) - Final 12/20/24 12:25 Mucosa - Nose SARS-CoV-2, Influenza & RSV (PCR) - Final D/C Instructions DC O2, CPAP, BIPAP Needs Home O2 Discharge instructions: No DC home with Oxygen: No Meaningful Use Info Meaningful Use Meaningful Use Diagnoses (Choose all that apply): None applicable Discharge Plan Admission Admit Date/Time: 12/20/24 12:16 Attending Provider: Rc Govea Primary Care Provider: Shiva Zamarripa Consulting Providers: Eric Zepeda; Forest Combs; Sergo Chaudhari; Jose M Calixto; Jarrett Cross; Johnnie Rihc; Farhan Franco; Keya Chisholm; John Coley; Michael Sun; Nic Ochoa; Mirian Mitchell; Simone Lenz; Jonelle Cline; Jazmín,Darryn; Mamie,Nadir; Serg Wilson; Michael Lake; Jayme Neri; Miguel Mcfadden; John Reza; Jerrell Lopez; Toni Reyna; Vincent Michaels; Scooby Simms; Jarrett Zuleta; Lucia Ramos; Lorin Asencio; Laura Cedillo; Michelle Hall METAL BURNISHER; Noemi Graves; Breanne Ibarra Discharge Orders/Prescriptions Prescriptions: No Action fluoxetine 20 mg capsule 20 mg PO DAILY Qty: 90 2RF lamotrigine 150 mg tablet 150 mg PO BID Qty: 60 5RF ondansetron HCl 4 mg tablet 4 mg PO TID PRN (Reason: nausea and vomiting) Qty: 90 5RF mirtazapine 7.5 mg tablet 15 mg PO QHS montelukast 10 mg tablet 10 mg PO QHS folic acid 1 mg Tablet 1 mg PO BREAKFAST Qty: 0 0RF polyethylene glycol 3350 17 gram Powder In Packet 34 g PO DAILY Qty: 0 0RF amlodipine 5 mg tablet 10 mg PO DAILY (DME) OXYGEN - Supplemental ([facility] INFORMATIONAL USE ONLY) Gas See Rx Instructions .ROUTE Patient Comments: pt wears 3lpm O2 at home but does not know from which company Rx Instructions: As directed acetaminophen [Acetaminophen Extra Strength] 500 mg tablet 1,000 mg PO BID atorvastatin 20 mg tablet 20 mg PO DAILY clonazepam 0.5 mg tablet 0.5 mg PO Q8H diclofenac sodium [Aleve (diclofenac)] 1 % gel 1 ea topical BID Rx Instructions: diclofenac gel 1% apply topically to affected areas guaifenesin [Chest Congestion Relief] 400 mg tablet 400 mg PO TID PRN (Reason: chest congestion) acetaminophen [Acetaminophen Extra Strength] 500 mg tablet 1,000 mg PO .noon PRN (Reason: fever or pain) Patient Comments: 500mg tablet- take 2 tablets (1000mg total) by mouth daily at noon as needed fluticasone propionate 50 mcg/actuation [place],Suspension 1 spray NASAL BID Qty: 0 0RF omeprazole 40 mg capsule,delayed release(DR/EC) 40 mg PO DAILY Qty: 90 3RF tamsulosin 0.4 mg capsule 0.4 mg PO DAILY@1830 Qty: 180 3RF memantine 10 mg tablet See Rx Instructions .ROUTE .COMPLEX Qty: 56 2RF Dose Instruction: TAKE 1 TABLET BY MOUTH TWICE A DAY Rx Instructions: TAKE 1 TABLET BY MOUTH TWICE A DAY Referrals / Follow Up: Shiva Zamarripa MD [Primary Care Provider] - Disposition Disposition (needs filled in before D/C Order can be placed): Hospice in Medical Facility Charges/Coding Visit Charges Inpatient E&M: 07239 Disch Hosp >30min
--- NOTE | 2024-12-27 15:40 | CASEMGMT ---
Social Work Nurse from [facility] here to meet with pt and pt's family. Family signed papers for hospice and plan is for pt to move to the inpatient hospice unit today. Hospice to arranged transportation. SW notified physician and charge nurse. Phone call to [facility] and spoke with nurse Mat[place] (Francine and Zoe were gone for the day) and updated that plan is for pt to dc to [facility] today. Phone call to pt's [employer] Paramedical Aide and informed of dc plan. Disposition: [facility] Inpatient Unit JEFFERSON Buckley
--- NOTE | 2024-12-27 15:52 | CASEMGMT ---
Social Work DC summary provided to [facility] nurse and faxed to [employer] Supervisor Suzette Ferrer. JEFFERSON Dang
--- NOTE | 2024-12-27 16:40 | NURSING ---
Called in report to nurse Villanueva from [facility] at 16:40.
== END 2024-12-27 18:14 | disposition hospice, inpatient (51) | DRG 177 ==
LOC: ED 10:26 → PCU 12:35
PROVIDERS: Family Medicine; Admitting Provider Internal Medicine; Emergency Provider Student in an Organized Health Care Education/Training Program; PCP Family Medicine; Visit Provider Internal Medicine
DX: J15.5 Pneumonia due to Escherichia coli (principal); J96.21 Acute and chronic respiratory failure with hypoxia; E43 Unspecified severe protein-calorie malnutrition; J44.0 Chronic obstructive pulmonary disease with (acute) lower respiratory infection; J44.1 Chronic obstructive pulmonary disease with (acute) exacerbation; Z68.1 Body mass index [BMI] 19.9 or less, adult; Z51.5 Encounter for palliative care; F10.21 Alcohol dependence, in remission; I10 Essential (primary) hypertension; F32.A Depression, unspecified; D64.9 Anemia, unspecified; J69.0 Pneumonitis due to inhalation of food and vomit; F41.9 Anxiety disorder, unspecified; K21.9 Gastro-esophageal reflux disease without esophagitis; E78.5 Hyperlipidemia, unspecified; F17.211 Nicotine dependence, cigarettes, in remission; K59.00 Constipation, unspecified; M40.209 Unspecified kyphosis, site unspecified; R13.10 Dysphagia, unspecified; R62.7 Adult failure to thrive; N40.0 Benign prostatic hyperplasia without lower urinary tract symptoms; Z66 Do not resuscitate; Z79.51 Long term (current) use of inhaled steroids; Z79.899 Other long term (current) drug therapy; Z99.81 Dependence on supplemental oxygen; Z91.199 Patient's noncompliance with other medical treatment and regimen due to unspecified reason
CPT/HCPCS: 36415; 71045; 71275; 74022; 80048; 80053; 82803; 83605; 84484; 85025; 87040; 87070; 87077; 87186; 87205; 87449; 87631; 87633; 92526; 92610; 93005; 93306; 94002; 94003; 94640; 94660; 94760; 94762; 97162; 97166; 97530; 97535; 97802; 97803; 99252; 99285; 99406; J2185; Q9967; A4216; G0463; J1938; J2405